=== PATIENT | male | born 1945 | race Caucasian/White ===

== ENCOUNTER 2016-09-07 13:33 | Outpatient (RCR) | payer MEDICARE, MEDICAID ==
[~2016-09-07 13:33] MED LIST: ANDROGEL75 G1 TD; CARVEDILOL12.5 MG ORAL; CODEINE SULFATE PO; CRESTOR10 M2 ORAL; FARXIGA5 MG PO; FORTESTA60 GM TD; GLUMETZA1000 MG PO; GLUMETZA500 MG PO; JANUVIA100 MG PO; KEFLEX500 M1 ORAL; LASIX20 M1 ORAL; LEVAQUIN500 MG PO; METFORMIN HCL1000 M1 ORAL; METFORMIN HCL500 M1 ORAL; OXYCODONE PO; OXYCONTIN10 MG ORAL; PRANDIN1 MG ORAL; PRANDIN2 MG ORAL; PRANDIN2 MG PO; PROSCAR5 MG PO; RAMIPRIL5 MG ORAL; RITALIN10 MG ORAL; RITALIN5 MG PO; SOMA350 MG PO; TESTOSTERONE5 G1; VIBRAMYCIN100 MG ORAL; VOLTAREN100 G1 TP; [UNRECOGNIZED DRUG - OTHER]
== END 2016-09-14 | disposition home or self-care (01) ==
LOC: WCC 13:33
DX: T81.89XA Other complications of procedures, not elsewhere classified, initial encounter (principal); E11.9 Type 2 diabetes mellitus without complications; I10 Essential (primary) hypertension; Y83.9 Surgical procedure, unspecified as the cause of abnormal reaction of the patient, or of later complication, without mention of misadventure at the time of the procedure
CPT/HCPCS: 11042; 82962

== ENCOUNTER → 2016-09-13 | Day surgery (SDC) | payer MEDICARE, MEDICAID ==
[2016-09-13] VITALS (8 sets, daily range): BP systolic 153–169; BP diastolic 70–89
[~2016-09-13] VITALS: Ht 172.7 cm; Wt 81.6 kg
[~2016-09-13] MED LIST changes: +BSS 15ml BTL ONE; +BSS 500ml btl ONE; +Bupivacaine 0.75% 30ml vial INJ ONE; +Cyclopentolate 1% Opth Sol ONE; +Dexamethasone 4mg/ml vial ONE; +EPINEPHrine 1mg/1ml Amp ONE; +Gatifloxacin Opth Solution 0.5% ONE; +Gatifloxacin Opth Solution 0.5% RIGHT EYE SCH; +Goniosol 2.5% Opth Soln - 15ml ONE; +LR 1000ml 1,000 ML IV SCH; +LR 1000ml 1,000 ML IVLG SCH; +LR 1000ml ONE; +Lidocaine 4% Amp ONE; +NS Irrig 1000ml ONE; +Phenylephrine 2.5% Op Soln ONE; +Povidone-Iodine 5% opth solution ONE; +Propofol 10mg/ml 20ml IV ONE; +Sterile Water Irrig 1000ml IRRIG ONE; +Tetracaine 0.5% Opth Soln ONE; +Tropicamide 1% Opth Soln ONE; +fentaNYL 100 mcg/2 mL IV PRN
[2016-09-13] MEDS: Tropicamide 1% Opth Soln RIGHT EYE SCH ×3 (11:01→11:23)
[2016-09-13] MEDS: Phenylephrine 2.5% Op Soln RIGHT EYE SCH ×3 (11:01→11:23)
[2016-09-13] MEDS: Cyclopentolate 1% Opth Sol RIGHT EYE SCH ×3 (11:01→11:23)
--- NOTE | 2016-09-13 12:10 | Pre-Procedure Note/Attestation ---
Pre-Procedure Note/Attestation Complete Prior to Procedure Planned Procedure: right Procedure Narrative: Pars plana vitrectomy, possible peel, and possible laser Indications for Procedure Pre-Operative Diagnosis: Vitreous opacities, rule out epiretinal membrane Attestation I attest that I discussed the nature of the procedure; its benefits; risks and complications; and alternatives (and the risks and benefits of such alternatives ), prior to the procedure, with the patient (or the patient's legal authorization representative). I attest that, if there was a reasonable possibility of needing a blood transfusion, the patient (or the patient's legal authorization representative) was given the [facility] standardized written summary, pursuant to the [place] Blood Safety Act ([place] Health and Safety Code # 1645, as amended). I attest that I re-evaluated the patient just prior to the surgery and that there has been no change in the patient's H&P, except as documented below: Fabio Eduardo MD Sep 13, 2016 12:10
--- NOTE | 2016-09-13 13:01 | Immediate Post-Op Evaluation ---
Immediate Post-Op Evalulation Immediate Post-Op Evalulation Procedure: Vitrectomy Date of Evaluation: Sep 13, 2016 Time of Evaluation: 13:20 IV Fluids: 800 Blood Pressure Systolic: 163 Blood Pressure Diastolic: 80 Pulse Rate: 78 Respiratory Rate: 15 O2 Sat by Pulse Oximetry: 96 Temperature (Fahrenheit): 98.8 Pain Score (1-10): 0 Nausea: No Vomiting: No Complications No complication Patient Status: awake, patent, none Hydration Status: adequate Drug: None IVONNE OROZCO M.D. Sep 13, 2016 13:01
--- NOTE | 2016-09-13 13:01 | Anethesia Preoperative Eval ---
Anesthesia Pre-op PMH/ROS General Date of Evaluation: Sep 13, 2016 Time of Evaluation: 12:20 Anesthesiologist: Elpidio ASA Score: ASA 3 Mallampati Score Class I : Soft palate, uvula, fauces, pillars visible Class II: Soft palate, uvula, fauces visible Class III: Soft palate, base of uvula visible Class IV: Only hard plate visible Mallampati Classification: Class II Surgeon: Alesha Diagnosis: Fungal Endothalmitis Surgical Procedure: Vitrectomy, Membrane Peeling Family History: no anesthesia problems Allergies: Coded Allergies: OLIVE OIL (Verified Adverse Reaction, Severe, SPASM IN THE COLON, 01/18/14) PREGABALIN (Verified Adverse Reaction, Intermediate, "hypernervous", ) ACETAMINOPHEN (Verified Adverse Reaction, Mild, IRRITABILITY AND ELEVATED BLOOD PRESSURE, 01/18/14) IBUPROFEN (Verified Adverse Reaction, Mild, IRRITABILITY AND ELEVATED BLOOD PRESSURE, 01/18/14) Medications: see eMAR Past Medical History Cardiovascular: Reports: other - DVT (on anticoagulation), Denies: CAD, HTN, DC, arrhythmia, valve dz Pulmonary: Denies: COPD, ELISA, asthma, other Gastrointestinal/Genitourinary: Reports: CRI Neurologic/Psychiatric: Denies: CVA, TIA, dementia, depression/anxiety, other Endocrine: Reports: DM, Denies: hypothyroidism, other, steroids HEENT: Reports: cataract (R) Hematology/Immune: Reports: DVT - On anticoagulation PMH Narrative: DM, DVT, back pain PSxH Narrative: Cataract, foot surgery, back surgery, T & A Anesthesia Pre-op Phys. Exam Physician Exam Last Vital Signs Date Time Temp Pulse Resp B/P Pulse Ox O2 Delivery O2 Flow Rate FiO2 09/13/16 11:03 98.3 75 18 153/71 99 Room Air Constitutional: NAD Neurologic: CN 2-12 intact Cardiovascular: RRR, no M/R/G Respiratory: CTA Gastrointestinal: S/NT/ND Airway Exam Mallampati Score: Class II MO: full ROM: full Dentures: upper Anesthesia Pre-op A/P Labs No contraindication Studies Pre-op Studies: EKG - SR, possible old septal infarct, possible lateral ischemia Risk Assessment & Plan Assessment: Diabetic male for vitrectomy Plan: MAC, TIVA Status Change Before Surgery: No Pre-Antibiotics Drug: None IVONNE OROZCO M.D. Sep 13, 2016 13:01
--- NOTE | 2016-09-13 13:05 | Brief Operative Note ---
Immediate Post Operative Note Operative Note Pre-op Diagnosis: Vitreous opacities, rule out epiretinal membrane Procedure: pars plana vitrectomy with membrane peel OD Post-op Diagnosis: Macular pucker and vitreous opacities. Surgeon: Alesha Anesthesia: local, MAC Specimen: none Complications: none Condition: stable Estimated Blood Loss: none Drains: none Implant(s) used?: No Fabio Eduardo MD Sep 13, 2016 13:05
--- NOTE | 2016-09-13 13:15 | 48 Hour Post Anesthesia Eval ---
Post Anesthesia Evaluation Procedure: Vitrectomy Date of Evaluation: Sep 13, 2016 Time of Evaluation: 13:45 Blood Pressure Systolic: 170 0: 73 Pulse Rate: 78 Respiratory Rate: 16 O2 Sat by Pulse Oximetry: 97 Airway: patent Nausea: No Vomiting: No Pain Intensity: 0 Hydration Status: adequate Cardiopulmonary Status: stable Mental Status/LOC: patient returned to baseline Follow-up Care/Observations: As per surgery Post-Anesthesia Complications: No anesthetic complication Follow-up care needed: N/A IVONNE OROZCO M.D. Sep 13, 2016 13:15
--- NOTE | 2016-09-13 20:47 | Operative Note - Dictated ---
DATE OF OPERATION: 09/13/2016 PREOPERATIVE DIAGNOSIS: Fungal endophthalmitis status post treatment, vitreous opacities. POSTOPERATIVE DIAGNOSIS: Fungal endophthalmitis status post treatment, vitreous opacities plus epiretinal membrane, right eye. PROCEDURE: Pars plana vitrectomy with membrane peel, right eye. SURGEON: Fabio Eduardo M.D. SENIOR PASTOR: Unassisted. ANESTHESIA: Local (4% lidocaine and 0.75% bupivacaine via retrobulbar injection). COMPLICATIONS: None. DESCRIPTION OF PROCEDURE: After informed consent was obtained, clearance by anesthesia, identification by Dr. Eduardo, the patient brought to the operating room where he received anesthetic injections and the right eye was prepped and draped in usual sterile ophthalmic fashion. A wire lid speculum placed in the conjunctiva fornices and a 3-port 23-gauge vitrectomy was created in this pseudophakic patient. Trocars and cannulas placed 3 millimeters posterior to surgical limbus supratemporally, superonasally and inferotemporally. Once the infusion cannula was noted to be inside the eye, infusion was turned on. The cortical vitreous then removed from the posterior surface of the lens to the surface of the retina and the vitreous was excised to the vitreous base. There was epiretinal membrane noted along the surface of the retina, which was engaged using intraocular forceps. At this point, the eye was examined using scleral depression. No holes or tears in the periphery. There was infiltrate noted at 5 o'clock is noted preoperatively that does appear to be an inactive. The trocar and cannulas were then removed. The wounds were noted to be watertight. Subconjunctival cefazolin, Decadron, and topical atropine drops were placed and the eye patched and shielded and the patient left the operating room in stable condition. Fabio Eduardo M.D. DR: JONATHAN JOB#: [id number] CC:
== END | disposition home or self-care (01) ==
LOC: SUR 10:24
DX: H44.19 Other endophthalmitis (principal); H43.311 Vitreous membranes and strands, right eye; Z96.1 Presence of intraocular lens; E11.22 Type 2 diabetes mellitus with diabetic chronic kidney disease; N18.3 Chronic kidney disease, stage 3 (moderate); E11.42 Type 2 diabetes mellitus with diabetic polyneuropathy; D50.9 Iron deficiency anemia, unspecified; E87.5 Hyperkalemia; I25.10 Atherosclerotic heart disease of native coronary artery without angina pectoris; G89.29 Other chronic pain; M54.5 Low back pain; Z86.718 Personal history of other venous thrombosis and embolism; Z79.01 Long term (current) use of anticoagulants; Z88.6 Allergy status to analgesic agent; Z91.018 Allergy to other foods
CPT/HCPCS: 67041; 82962; J0171; J0690; J1100; J2704; J3470; J3490; J7120; 94003; 94150

== ENCOUNTER 2016-10-21 12:27 | Outpatient (RCR) | payer MEDICARE, MEDICAID ==
[~2016-10-21 12:27] MED LIST changes: -BSS 15ml BTL ONE; -BSS 500ml btl ONE; -Bupivacaine 0.75% 30ml vial INJ ONE; -Cyclopentolate 1% Opth Sol ONE; -Dexamethasone 4mg/ml vial ONE; -EPINEPHrine 1mg/1ml Amp ONE; -Gatifloxacin Opth Solution 0.5% ONE; -Gatifloxacin Opth Solution 0.5% RIGHT EYE SCH; -Goniosol 2.5% Opth Soln - 15ml ONE; -LR 1000ml 1,000 ML IV SCH; -LR 1000ml 1,000 ML IVLG SCH; -LR 1000ml ONE; -Lidocaine 4% Amp ONE; -NS Irrig 1000ml ONE; -Phenylephrine 2.5% Op Soln ONE; -Povidone-Iodine 5% opth solution ONE; -Propofol 10mg/ml 20ml IV ONE; -Sterile Water Irrig 1000ml IRRIG ONE; -Tetracaine 0.5% Opth Soln ONE; -Tropicamide 1% Opth Soln ONE; -fentaNYL 100 mcg/2 mL IV PRN
== END 2016-11-12 | disposition home or self-care (01) ==
LOC: WCC 12:27
DX: S90.822A Blister (nonthermal), left foot, initial encounter (principal); X58.XXXA Exposure to other specified factors, initial encounter; Y93.9 Activity, unspecified; Y92.9 Unspecified place or not applicable; L03.032 Cellulitis of left toe; L60.2 Onychogryphosis; M79.671 Pain in right foot; M79.672 Pain in left foot; E11.9 Type 2 diabetes mellitus without complications; I10 Essential (primary) hypertension; M54.9 Dorsalgia, unspecified; G89.29 Other chronic pain; Z88.6 Allergy status to analgesic agent
CPT/HCPCS: 10140; 11042; 11721; G0463

== ENCOUNTER → 2016-11-10 | Day surgery (SDC) | payer MEDICARE, MEDICAID ==
--- NOTE | 2016-11-09 23:09 | Pre-Procedure Note/Attestation ---
Pre-Procedure Note/Attestation Complete Prior to Procedure Planned Procedure: left - Removal of cataract and placement of intraocular lens , left eye Indications for Procedure Pre-Operative Diagnosis: cataract, nuclear, left eye Attestation I attest that I discussed the nature of the procedure; its benefits; risks and complications; and alternatives (and the risks and benefits of such alternatives ), prior to the procedure, with the patient (or the patient's legal sales representative trainee). I attest that, if there was a reasonable possibility of needing a blood transfusion, the patient (or the patient's legal sales representative trainee) was given the [facility] standardized written summary, pursuant to the [place] Blood Safety Act ([place] Health and Safety Code # 1645, as amended). I attest that I re-evaluated the patient just prior to the surgery and that there has been no change in the patient's H&P, except as documented below: Isma Watson MD Nov 09, 2016 23:09
[~2016-11-10] VITALS: Ht 172.7 cm; Wt 79.4 kg
[~2016-11-10] MED LIST changes: +Alfentanil 2ml Inj ONE; +Atropine Inj 1mg/10ml Syr IV PRN; +BSS 15ml BTL ONE; +BSS 500ml btl ONE; +Carbachol 0.01% Op Soln 1.5ml vial ONE; +Dexamethasone 4mg/ml vial ONE; +DiphenhydrAMINE 50mg/ml Inj IVP PRN; +EPINEPHrine 1mg/1ml Amp ONE; +Hydromorphone 0.5mg/0.5ml inj IVP PRN; +Ketorolac 30mg Inj IV PRN; +Ketorolac 60mg Inj IV PRN; +LORazepam Inj 2mg/ml 1ml IV PRN; +LR 1000ml 1,000 ML IVLG SCH; +LR 1000ml ONE; +Labetalol 5mg/ml 20ml vial IV PRN; +Lidocaine 1% MPF 10mg/ml 5ml ONE; +Lidocaine 4% Amp ONE; +Meperidine 25mg/ml Inj IV PRN; +Metoclopramide 10mg/2ml Inj IVP PRN; +Midazolam 2mg/2ml Inj IVP PRN; +Midazolam 2mg/2ml Inj ONE; +NS Irrig 1000ml ONE; +Norco 5mg/325mg tab ORAL PRN; +Norco 7.5mg/325mg tab ORAL PRN; +Oxycodone/Acetaminophen 5-325 ORAL PRN; +Phenylephrine 10% Opth Soln 5ml LEFT EYE SCH; +Pred Forte 1% Opth Susp 1ml LEFT EYE ONE; +Propofol 10mg/ml 20ml IV ONE; +Sterile Water Irrig 1000ml IRRIG ONE; +fentaNYL 100 mcg/2 mL IV PRN
[2016-11-10] MEDS: Gatifloxacin Opth Solution 0.5% LEFT EYE SCH ×3 (10:37→11:04)
[2016-11-10] MEDS: Cyclopentolate 1% Opth Sol LEFT EYE SCH ×3 (10:37→11:03)
[2016-11-10] MEDS: Akten 3.5% 1ml Btl LEFT EYE SCH ×3 (10:38→11:04)
[2016-11-10] MEDS: Flurbiprofen 0.03% Opth Sol 2.5ml LEFT EYE SCH ×3 (10:38→11:03)
[2016-11-10] MEDS: Phenylephrine 10% Opth Soln 5ml LEFT EYE SCH ×3 (10:52→11:12)
--- NOTE | 2016-11-10 11:36 | Anethesia Preoperative Eval ---
Anesthesia Pre-op PMH/ROS General Date of Evaluation: Nov 10, 2016 Time of Evaluation: 11:36 Anesthesiologist: Antione ASA Score: ASA 3 Mallampati Score Class I : Soft palate, uvula, fauces, pillars visible Class II: Soft palate, uvula, fauces visible Class III: Soft palate, base of uvula visible Class IV: Only hard plate visible Mallampati Classification: Class II Surgeon: Walter Diagnosis: Cataract OS Surgical Procedure: Cat Ext IOL OS Anesthesia History: none Family History: no anesthesia problems Allergies: Coded Allergies: OLIVE OIL (Verified Adverse Reaction, Severe, SPASM IN THE COLON, 01/18/14) PREGABALIN (Verified Adverse Reaction, Intermediate, "hypernervous", ) ACETAMINOPHEN (Verified Adverse Reaction, Mild, IRRITABILITY AND ELEVATED BLOOD PRESSURE, 01/18/14) IBUPROFEN (Verified Adverse Reaction, Mild, IRRITABILITY AND ELEVATED BLOOD PRESSURE, 01/18/14) Medications: see eMAR Past Medical History Cardiovascular: Reports: CAD, HTN, other - HL Gastrointestinal/Genitourinary: Reports: CRI Endocrine: Reports: DM HEENT: Reports: cataract (L), cataract (R) Hematology/Immune: Reports: DVT, anemia PSxH Narrative: Nose Sx, Cat OD, R Foot SX, Back SX Anesthesia Pre-op Phys. Exam Physician Exam Last Vital Signs Date Time Temp Pulse Resp B/P Pulse Ox O2 Delivery O2 Flow Rate FiO2 11/10/16 11:16 98.4 78 18 100 Room Air Constitutional: NAD Neurologic: CN 2-12 intact Cardiovascular: RRR Respiratory: CTA Gastrointestinal: S/NT/ND Airway Exam Mallampati Score: Class II MO: limited ROM: limited Teeth: missing, intact Anesthesia Pre-op A/P Risk Assessment & Plan Assessment: ASA 3 Plan: GA Status Change Before Surgery: Gabriel Maldonado MD Nov 10, 2016 11:36
--- NOTE | 2016-11-10 11:38 | Immediate Post-Op Evaluation ---
Immediate Post-Op Evalulation Immediate Post-Op Evalulation Procedure: Cat Ext IOL OS Date of Evaluation: Nov 10, 2016 Time of Evaluation: 12:49 IV Fluids: 300 LR Blood Products: 0 Estimated Blood Loss: 1 Urinary Output: 0 Blood Pressure Systolic: 190 Blood Pressure Diastolic: 86 Pulse Rate: 76 Respiratory Rate: 16 O2 Sat by Pulse Oximetry: 98 Temperature (Fahrenheit): 98.6 Pain Score (1-10): 2 Nausea: No Vomiting: No Complications 0 Patient Status: awake, reacts, patent, none Hydration Status: adequate Gabriel Talbot MD Nov 10, 2016 11:38
--- NOTE | 2016-11-10 11:39 | 48 Hour Post Anesthesia Eval ---
Post Anesthesia Evaluation Procedure: Cat Ext IOL OS Date of Evaluation: Nov 10, 2016 Time of Evaluation: 14:53 Blood Pressure Systolic: 189 0: 78 Pulse Rate: 76 Respiratory Rate: 18 Temperature (Fahrenheit): 98.6 O2 Sat by Pulse Oximetry: 100 Airway: patent Nausea: No Vomiting: No Pain Intensity: 1 Hydration Status: adequate Cardiopulmonary Status: Stable Mental Status/LOC: patient returned to baseline Follow-up Care/Observations: 0 Post-Anesthesia Complications: 0 Follow-up care needed: ready to discharge Gabriel Talbot MD Nov 10, 2016 11:39
--- NOTE | 2016-11-10 12:39 | Discharge Instructions ---
Discharge Instructions Discharge Instructions Follow Up Orders Continue preop eye drops Wear shield at all times except to place eye drops Followup tomorrow in Dr Watson's office For Congestive Heart Failure Reminder Report to your physician any weight gain of 5 pounds or more in one week. Isma Watson MD Nov 10, 2016 12:39
--- NOTE | 2016-11-10 12:42 | Brief Operative Note ---
Immediate Post Operative Note Operative Note Pre-op Diagnosis: cataract, nuclear, left eye Procedure: phaco pc iol, os Use of 7.0 malyuga ring Post-op Diagnosis: cataract, nuclear, left eye miosis, left eye Surgeon: Kimberlee Watson MD MS Director Of Physiotherapy Services: none Anesthesiologist: Dr Talbot Anesthesia: local, MAC Specimen: none Complications: none Condition: stable Fluids: IV Implant(s) used?: Yes - [facility] [id number] 26.5 Isma Watson MD Nov 10, 2016 12:42
[2016-11-10 12:43] VITALS: BP 189/97
[2016-11-10 12:48] VITALS: BP 190/93
[2016-11-10 12:53] VITALS: BP 185/86
[2016-11-10 13:25] VITALS: BP 163/89
[2016-11-10 14:25] VITALS: BP 155/76
--- NOTE | 2016-11-10 21:29 | Operative Note - Dictated ---
DATE OF OPERATION: 11/10/2016 SURGEON: Isma Watson M.D. MOHEL SURGEON: None. ANESTHESIOLOGIST: Gabriel Talbot M.D. ANESTHESIA: Local/standby/monitored anesthesia care. PREOPERATIVE DIAGNOSES: 1. Cataract, nuclear, left eye. 2. Miosis, left eye. POSTOPERATIVE DIAGNOSES: 1. Cataract, nuclear, left eye. 2. Miosis, left eye. PROCEDURES: 1. Phacoemulsification of cataract, left eye. 2. Placement of posterior chamber intraocular lens, left eye (model [employer]ER TECNIS [id number], power 26.5). 3. Use of Malyugin ring, (7.0 mm). SPECIMENS: None. COMPLICATIONS: None. INDICATIONS FOR SURGERY: The patient has had painless progressive decrease in visual acuity in the left eye secondary to cataract. The patient understands the risks of surgery including infection, bleeding, need for further surgery, loss of vision, no improvement in vision, loss of the eye, loss of life, glaucoma, retinal detachment, endophthalmitis, and understands these risks and elects to proceed with surgery. FINDINGS: The patient had a +3 nuclear sclerotic cataract as well as miosis. Operative Note: After informed consent was obtained, the patient was brought into the operating room and placed in the supine position. Cardiac and respiratory monitors were attached. A time-out was performed and all criteria were met and everyone in the room agreed. The left eye was then draped and prepped in sterile manner for ocular surgery. A lid speculum was placed in the eye. The patient had previous RK surgery and 1% lidocaine preservative-free was injected at the approximate 2 o'clock limbus. A conjunctiva peritomy from approximately 1 o'clock to 2:30 was made and dissected posteriorly. Hemostasis was maintained with bipolar cautery. A 2.6 mm limbal incision was made centered between two RK wounds. This was dissected anteriorly so as not to cross any of the RK wounds. A paracentesis was made at approximately 3 o'clock again avoiding all RK wounds. A 1% lidocaine preservative-free was injected into the anterior chamber followed by Healon. The anterior chamber was then entered using a 2.6 mm keratome through the limbal incision again avoiding the RK wounds. Healon was then injected into the anterior chamber. The Malyugin ring was then placed with 4-point fixation on the pupillary margin. This was done because the pupil originally seen in the preoperative area and it was approximately 7 mm but in the operating room it was approximately 4.5 mm and so it definitely started to become miotic. After the placement of the Malyugin ring, anterior capsulorrhexis was then performed. Hydrodissection and hydrodelineation of the lens was then performed. The lens was then phacoemulsified using divide and conquer four-quadrant technique. Residual cortical material was then aspirated. The lens was taken from its package, placed into the cartridge, and Healon was placed into the anterior chamber and capsular bag. The tip of the cartridge was placed through the limbal incision and also avoiding the RK wounds. The lens was injected into the capsular bag and centered nicely with a Sinskey hook. Both haptics were observed going into the capsule and were underneath the anterior capsule. There is nothing that was dislocated anteriorly. The Malyugin ring was then removed. Inspiration and expiration of Healon was then done to aspirate all the Healon from the anterior chamber and capsular bag. One 10-0 nylon interrupted suture was then placed through the limbal incision. The knot was rotated and buried. The paracentesis site was hydrated and closed. Wounds were checked and found to be watertight. The conjunctiva was then closed with forceps cautery. The lid speculum drapes were removed from the eye and drops of Betadine diluted was placed onto the surface of the eye and then irrigated. The drops of Timoptic, gatifloxacin, and Pred Forte were applied to the eye followed by Maxitrol ointment and a shield. The patient tolerated the procedure well and left the operating room awake and alert and in stable condition. The patient is to follow up the next day, but sooner on a p.r.n. basis. Elsie Watson M.D. DR: Sary JOB#: [id number] CC:
== END | disposition home or self-care (01) ==
LOC: SUR 09:28
DX: H25.12 Age-related nuclear cataract, left eye (principal); H57.03 Miosis; I25.10 Atherosclerotic heart disease of native coronary artery without angina pectoris; E78.5 Hyperlipidemia, unspecified; I12.9 Hypertensive chronic kidney disease with stage 1 through stage 4 chronic kidney disease, or unspecified chronic kidney disease; N18.9 Chronic kidney disease, unspecified; E11.9 Type 2 diabetes mellitus without complications; D64.9 Anemia, unspecified; Z86.718 Personal history of other venous thrombosis and embolism; Z79.84 Long term (current) use of oral hypoglycemic drugs
CPT/HCPCS: 66982; 82962; J0171; J1100; J2250; J2704; J3490; J7120; V2632; 94003; 94150

== ENCOUNTER 2016-11-16 12:51 | Outpatient (RCR) | payer MEDICARE, MEDICAID ==
[~2016-11-16 12:51] MED LIST changes: -Alfentanil 2ml Inj ONE; -Atropine Inj 1mg/10ml Syr IV PRN; -BSS 15ml BTL ONE; -BSS 500ml btl ONE; -Carbachol 0.01% Op Soln 1.5ml vial ONE; -Dexamethasone 4mg/ml vial ONE; -DiphenhydrAMINE 50mg/ml Inj IVP PRN; -EPINEPHrine 1mg/1ml Amp ONE; -Hydromorphone 0.5mg/0.5ml inj IVP PRN; -Ketorolac 30mg Inj IV PRN; -Ketorolac 60mg Inj IV PRN; -LORazepam Inj 2mg/ml 1ml IV PRN; -LR 1000ml 1,000 ML IVLG SCH; -LR 1000ml ONE; -Labetalol 5mg/ml 20ml vial IV PRN; -Lidocaine 1% MPF 10mg/ml 5ml ONE; -Lidocaine 4% Amp ONE; -Meperidine 25mg/ml Inj IV PRN; -Metoclopramide 10mg/2ml Inj IVP PRN; -Midazolam 2mg/2ml Inj IVP PRN; -Midazolam 2mg/2ml Inj ONE; -NS Irrig 1000ml ONE; -Norco 5mg/325mg tab ORAL PRN; -Norco 7.5mg/325mg tab ORAL PRN; -Oxycodone/Acetaminophen 5-325 ORAL PRN; -Phenylephrine 10% Opth Soln 5ml LEFT EYE SCH; -Pred Forte 1% Opth Susp 1ml LEFT EYE ONE; -Propofol 10mg/ml 20ml IV ONE; -Sterile Water Irrig 1000ml IRRIG ONE; -fentaNYL 100 mcg/2 mL IV PRN
== END 2016-12-12 | disposition home or self-care (01) ==
LOC: WCC 12:51
DX: S31.100A Unspecified open wound of abdominal wall, right upper quadrant without penetration into peritoneal cavity, initial encounter (principal); Y83.9 Surgical procedure, unspecified as the cause of abnormal reaction of the patient, or of later complication, without mention of misadventure at the time of the procedure
CPT/HCPCS: 11042; G0463

== ENCOUNTER 2016-12-14 13:26 | Outpatient (RCR) | payer MEDICARE, MEDICAID ==
[~2016-12-14] VITALS: Ht 200.7 cm; Wt 72.6 kg
== END 2017-01-12 | disposition home or self-care (01) ==
LOC: WCC 13:26
DX: T81.89XA Other complications of procedures, not elsewhere classified, initial encounter (principal); E11.9 Type 2 diabetes mellitus without complications; I10 Essential (primary) hypertension; G89.29 Other chronic pain; Z88.6 Allergy status to analgesic agent; X58.XXXA Exposure to other specified factors, initial encounter; Y93.9 Activity, unspecified; Y92.9 Unspecified place or not applicable
CPT/HCPCS: 11042

== ENCOUNTER 2016-12-14 15:42 | Outpatient (CLI) | payer MEDICARE, MEDICAID ==
--- NOTE | 2016-12-14 16:32 | Diagnostic Imaging Report ---
Indication: Pain Comparison: None Findings: 3 views of the right foot were obtained. 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 There is loss of the plantar arch. The plantar arch appears everted. There is soft tissue swelling. Vascular calcifications are noted. Impression: Charcot foot
[2016-12-14 16:41] LABS: BASOPHILS % (AUTO) 1.4 % (0.0-2.0); EOSINOPHILS % (AUTO) 3.6 % (0.0-3.0); LYMPHOCYTES % (AUTO) 19.3 % (20.0-45.0); MEAN CORPUSCULAR HEMOGLOBIN 30.9 PG (27.0-31.0); MEAN CORPUSCULAR HGB CONC 34.7 G/DL (32.0-36.0); MEAN CORPUSCULAR VOLUME 89 FL (80-99); MEAN PLATELET VOLUME 5.9 FL (6.5-10.1); MONOCYTES % (AUTO) 6.3 % (1.0-10.0); NEUTROPHILS % (AUTO) 69.5 % (45.0-75.0); PLATELET COUNT 290 K/UL (150-450); RED BLOOD COUNT 3.89 M/UL (4.70-6.10); RED CELL DISTRIBUTION WIDTH 13.5 % (11.6-14.8); WHITE BLOOD COUNT 9.5 K/UL (4.8-10.8)
[2016-12-14 17:22] LABS: ALANINE AMINOTRANSFERASE 8 U/L (3-41); ALBUMIN/GLOBULIN RATIO 1.2 (1.0-2.7); ANION GAP 15 (5-15); ASPARTATE AMINO TRANSFERASE 15 U/L (5-40); CALCIUM 9.3 mg/dL (8.6-10.2); CARBON DIOXIDE 27 mEQ/L (20-30); CHLORIDE 95 mEQ/L (98-107); CREATININE 1.4 mg/dL (0.7-1.2); CRP QUANT 2.5 mg/dL (< 0.5); HEMOLYSIS 3; POTASSIUM 4.5 mEQ/L (3.4-4.9); SODIUM 137 mEQ/L (135-145); TOTAL PROTEIN 7.4 g/dL (6.6-8.7)
[2016-12-14 17:47] LABS: ERYTHROCYTE SEDIMENTATION RATE 37 MM/HR (0-20)
== END 2016-12-14 16:42 | disposition home or self-care (01) ==
LOC: RAD 15:42
DX: L03.115 Cellulitis of right lower limb (principal); A52.16 Charcot's arthropathy (tabetic)
CPT/HCPCS: 36415; 80053; 85025; 85651; 86140; 87070; 87181; 87205

== ENCOUNTER 2017-03-08 14:49 | Outpatient (RCR) | payer MEDICARE, MEDICAID | END 2017-03-14 | disposition home or self-care (01) | LOC: WCC 14:49 | DX: L97.513 Non-pressure chronic ulcer of other part of right foot with necrosis of muscle (principal); M14.671 Charcot's joint, right ankle and foot; E11.69 Type 2 diabetes mellitus with other specified complication; Z87.891 Personal history of nicotine dependence; I10 Essential (primary) hypertension; Z88.6 Allergy status to analgesic agent | CPT/HCPCS: 11042 ==

== ENCOUNTER 2017-03-15 13:30 | Outpatient (RCR) | payer MEDICARE, MEDICAID | END 2017-04-14 | disposition home or self-care (01) | LOC: WCC 13:30 | DX: L97.513 Non-pressure chronic ulcer of other part of right foot with necrosis of muscle (principal); E11.69 Type 2 diabetes mellitus with other specified complication; M14.671 Charcot's joint, right ankle and foot; I10 Essential (primary) hypertension; Z88.6 Allergy status to analgesic agent | CPT/HCPCS: 11042; G0463 ==

== ENCOUNTER 2017-07-19 13:47 | Outpatient (RCR) | payer MEDICARE, MEDICAID | END 2017-08-14 | disposition home or self-care (01) | LOC: WCC 13:47 | DX: L97.513 Non-pressure chronic ulcer of other part of right foot with necrosis of muscle (principal); M14.671 Charcot's joint, right ankle and foot; E11.69 Type 2 diabetes mellitus with other specified complication; L89.620 Pressure ulcer of left heel, unstageable; I10 Essential (primary) hypertension; Z87.891 Personal history of nicotine dependence; M86.072 Acute hematogenous osteomyelitis, left ankle and foot; L03.116 Cellulitis of left lower limb; L89.623 Pressure ulcer of left heel, stage 3; Z88.6 Allergy status to analgesic agent | CPT/HCPCS: 11043; 87070; 87181; 87205; G0463 ==

== ENCOUNTER 2017-08-02 13:29 | Outpatient (CLI) | payer MEDICARE, MEDICAID ==
--- NOTE | 2017-08-03 11:12 | Diagnostic Imaging Report ---
Indication: Nonhealing ulcer on left heel Technique: Sagittal, coronal, axial T1 fast spin echo and fast spin echo STIR images of the ankle and hindfoot Comparison: 03/30/2016 MRI, 12/14/2016 plain foot radiograph. No recent radiographs available Findings: There is an apparent defect of the posteromedial skin and subcutaneous fat on the STIR images, which must be artifactual as no defect is apparent on the T1-weighted images. There is abnormal high STIR signal and abnormal low T1 signal within the calcaneal tuberosity, with a thin focus of abnormal signal extending centrally into the main portion of the posterior calcaneus. No definite overlying ulceration or significant soft tissue edema in the area is noted, except for minimal edema of the subcutaneous fat inferior to the plantar fascia attachment. No focal drainable collections are evident. More anteriorly, there is some edema of the superficial subcutaneous fat and of the deep musculature. There is some deep edema dorsally as well along the midfoot. The major tendons are grossly intact. Impression: Positive for osteomyelitis of the calcaneal tuberosity. No other definite osseous abnormality demonstrated. Evidence of soft tissue cellulitis/myositis of the midfoot. No drainable focal fluid collection demonstrated Findings were discussed by phone with Dr. Velasquez at approximately 8:30 a.m. on 08/03/2017
== END 2017-08-02 15:29 | disposition home or self-care (01) ==
LOC: MRI 13:29
DX: S91.302A Unspecified open wound, left foot, initial encounter (principal); X58.XXXA Exposure to other specified factors, initial encounter; Y93.9 Activity, unspecified; Y92.9 Unspecified place or not applicable

== ENCOUNTER 2017-10-11 14:29 | Inpatient (IN) | payer MEDICARE, MEDICAID ==
[~2017-10-11] VITALS: Ht 172.7 cm; Wt 83.9 kg
[2017-10-11] MEDS ORDERED: AMLODIPINE BESYL5 MG ORAL (14:39)
[2017-10-11] MEDS ORDERED: ACETYL L-CARNI500 MG ORAL (14:39)
[2017-10-11] MEDS ORDERED: ALPHA LIPOIC AC50 M1 PO (14:39)
[2017-10-11] MEDS ORDERED: BENADRYL25 MG ORAL (14:42)
[2017-10-11] MEDS ORDERED: EPOGEN2000 UNIT/ SUBQ (14:42)
[2017-10-11] MEDS ORDERED: CYANOCOBAL1000 MCG/2 IJ (14:42)
[2017-10-11 14:48] VITALS: BP 133/61
[2017-10-11] MEDS ORDERED: MILK OF MA400 MG/51 ORAL (14:53)
[2017-10-11] MEDS ORDERED: ZOFRAN ODT4 MG ORAL (14:53)
[2017-10-11] MEDS ORDERED: LANTUS SOL100 UNIT/1 SUBQ (14:53)
[2017-10-11] MEDS ORDERED: NEPHROVITE1 TAB ORAL (14:53)
[2017-10-11] MEDS ORDERED: ZANTAC150 MG ORAL (14:53)
[2017-10-11] MEDS ORDERED: VITAMIN B COMP1 EAC2 ORAL (14:53)
[2017-10-11] MEDS ORDERED: MELATONIN1 M2 PO (14:53)
[2017-10-11] MEDS ORDERED: FUROSEMIDE40 MG ORAL (14:53)
[2017-10-11] MEDS ORDERED: OXYCODONE HCL10 MG ORAL (14:53)
[2017-10-11] MEDS ORDERED: NOVOLOG100 UNIT/3 SUBQ (14:53)
[2017-10-11] MEDS ORDERED: VOLTAREN100 G1 TP (14:53)
[2017-10-11] MEDS ORDERED: VITAMIN D400 INTLU ORAL (14:53)
[2017-10-11] MEDS ORDERED: RITALIN5 MG ORAL (14:53)
[2017-10-11] MEDS ORDERED: MIRTAZAPINE15 MG ORAL (14:53)
[2017-10-11] MEDS ORDERED: PROSCAR5 MG ORAL (14:53)
[2017-10-11] MEDS ORDERED: Vancomycin 1.5gm/D5W 250ml 250 ML IVPB ONE (15:15)
[2017-10-11] MEDS ORDERED: Morphine Sulfate 4mg/ml Inj IVP ONE (15:30)
--- NOTE | 2017-10-11 15:31 | Emergency Room Report ---
History of Present Illness General Chief Complaint: General Complaint Source: Medical Record, EMS Present Illness HPI 72-year-old male presents ED for evaluation. Patient presenting from nursing home facility. Has ulcer to his left heel which is getting progressively worse. Noted by nursing staff. Sent here for further evaluation. Pain is a sharp, 8/10, nonradiating. Denies fevers or chills. Denies chest pain. Denies nausea or vomiting. No other aggravating factors. Denies any other associated symptoms Allergies: Coded Allergies: GABAPENTIN (Verified Allergy, Unknown, 10/11/17) OLIVE OIL (Verified Adverse Reaction, Severe, SPASM IN THE COLON, 01/18/14) PREGABALIN (Verified Adverse Reaction, Intermediate, "hypernervous", ) ACETAMINOPHEN (Verified Adverse Reaction, Mild, IRRITABILITY AND ELEVATED BLOOD PRESSURE, 01/18/14) IBUPROFEN (Verified Adverse Reaction, Mild, IRRITABILITY AND ELEVATED BLOOD PRESSURE, 01/18/14) Uncoded Allergies: SSRI (Allergy, Unknown, 10/11/17) Patient History Past Medical History: DM, HTN, other - BPH Past Surgical History: none Pertinent Family History: none Social History: Denies: smoking, alcohol use, drug use Immunizations: UTD Reviewed Nursing Documentation: PMH: Agreed, PSxH: Agreed Nursing Documentation-PMH Hx Cardiac Problems: Yes - ASCVD, Chronic diastolic CHF, Anemia Hx Hypertension: Yes Hx Diabetes: Yes - DM2 Hx Cancer: No Hx Gastrointestinal Problems: Yes - Benign prostatic hyperplasia Hx Neurological Problems: No - Pressure ulcer, Osteomyelitis, Difficulty walking,Left artificial hip joint Hx Vertigo: Yes Hx Dizziness: Yes Hx Headaches: Yes Hx Weakness: Yes - IN THE LEGS Hx Fatigue: Yes Physical Exam Vital Signs Date Time Temp Pulse Resp B/P (MAP) Pulse Ox O2 Delivery O2 Flow Rate FiO2 10/11/17 14:30 99.0 83 20 133/61 96 Room Air 99.0 Medical Decision Making Diagnostic Impression: Primary Impression: Foot ulcer, left Qualified Codes: L97.529 - Non-pressure chronic ulcer of other part of left foot with unspecified severity Additional Impression: Renal insufficiency ER Course Hospital Course 72-year-old female presents to ED with ulcer to L heel Differential diagnoses include: Cellulitis, abscess, osteomyelitis Clinical course Patient placed on stretcher. After initial history and physical I ordered labs , blood Cx, UA, IVFs, wound cx labs reviewed - leukocytosis, Hb/Hct stable, BUN/Cr elevated patient refused cxr and foot xray antibiotics given. IVFs given. Case discussed with Dr Mcdowell and he agreed to accept the patient to his service for further care and support Diagnosis - L foot ulcer, renal insufficiency Patient admitted to floor in serious condition Labs Test 10/11/17 15:30 White Blood Count 16.4 K/UL (4.8-10.8) Red Blood Count 4.37 M/UL (4.70-6.10) Hemoglobin 11.7 G/DL (14.2-18.0) Hematocrit 35.4 % (42.0-52.0) Mean Corpuscular Volume 81 FL (80-99) Mean Corpuscular Hemoglobin 26.8 PG (27.0-31.0) Mean Corpuscular Hemoglobin Concent 33.1 G/DL (32.0-36.0) Red Cell Distribution Width 15.1 % (11.6-14.8) Platelet Count 513 K/UL (150-450) Mean Platelet Volume 5.2 FL (6.5-10.1) Neutrophils (%) (Auto) 84.7 % (45.0-75.0) Lymphocytes (%) (Auto) 7.3 % (20.0-45.0) Monocytes (%) (Auto) 5.2 % (1.0-10.0) Eosinophils (%) (Auto) 2.1 % (0.0-3.0) Basophils (%) (Auto) 0.7 % (0.0-2.0) Sodium Level 132 MMOL/L (136-145) Potassium Level 5.0 MMOL/L (3.5-5.1) Chloride Level 97 MMOL/L (98-107) Carbon Dioxide Level 24 MMOL/L (21-32) Anion Gap 11 mmol/L (5-15) Blood Urea Nitrogen 49 mg/dL (7-18) Creatinine 2.4 MG/DL (0.55-1.30) Estimat Glomerular Filtration Rate mL/min (>60) Glucose Level 253 MG/DL (74-106) Lactic Acid Level 1.90 mmol/L (0.66-2.22) Calcium Level 9.1 MG/DL (8.5-10.1) Total Bilirubin 0.4 MG/DL (0.2-1.0) Aspartate Amino Transf (AST/SGOT) 39 U/L (15-37) Alanine Aminotransferase (ALT/SGPT) 45 U/L (12-78) Alkaline Phosphatase 111 U/L (46-116) Total Protein 8.3 G/DL (6.4-8.2) Albumin 2.7 G/DL (3.4-5.0) Globulin 5.6 g/dL Albumin/Globulin Ratio 0.5 (1.0-2.7) Last Vital Signs Date Time Temp Pulse Resp B/P (MAP) Pulse Ox O2 Delivery O2 Flow Rate FiO2 10/11/17 14:48 99.0 83 20 133/61 96 Room Air 99.0 Status: improved Disposition: ADMITTED INPATIENT Condition: Serious Referrals: ROSEY CHUN (PCP) JOHN CARRIZALES M.D. Oct 11, 2017 15:31
[2017-10-11 15:54] LABS: BASOPHILS % (AUTO) 0.7 % (0.0-2.0); EOSINOPHILS % (AUTO) 2.1 % (0.0-3.0); HEMATOCRIT 35.4 % (42.0-52.0); HEMOGLOBIN 11.7 G/DL (14.2-18.0); LYMPHOCYTES % (AUTO) 7.3 % (20.0-45.0); MEAN CORPUSCULAR VOLUME 81 FL (80-99); MONOCYTES % (AUTO) 5.2 % (1.0-10.0); NEUTROPHILS % (AUTO) 84.7 % (45.0-75.0); PLATELET COUNT 513 K/UL (150-450); RED BLOOD COUNT 4.37 M/UL (4.70-6.10); RED CELL DISTRIBUTION WIDTH 15.1 % (11.6-14.8); WHITE BLOOD COUNT 16.4 K/UL (4.8-10.8)
[2017-10-11 16:08] LABS: ANION GAP 11 mmol/L (5-15); BLOOD UREA NITROGEN 49 mg/dL (7-18); CALCIUM 9.1 MG/DL (8.5-10.1); CARBON DIOXIDE 24 MMOL/L (21-32); CHLORIDE 97 MMOL/L (98-107); CREATININE 2.4 MG/DL (0.55-1.30); SODIUM 132 MMOL/L (136-145)
[2017-10-11 16:13] LABS: ALANINE AMINOTRANSFERASE 45 U/L (12-78); ALBUMIN 2.7 G/DL (3.4-5.0); ALBUMIN/GLOBULIN RATIO 0.5 (1.0-2.7); ALKALINE PHOSPHATASE 111 U/L (46-116); ASPARTATE AMINO TRANSFERASE 39 U/L (15-37); BILIRUBIN,TOTAL 0.4 MG/DL (0.2-1.0)
[2017-10-11 16:35] VITALS: BP 130/62
[2017-10-11] MEDS ORDERED: oxyCODONE 5mg IR tab ORAL PRN (16:45)
[2017-10-11] MEDS ORDERED: Miralax 17gm pkt ORAL PRN (16:45)
[2017-10-11] MEDS ORDERED: Acetaminophen 650 MG SUPP RECTAL PRN ×2 (16:45)
--- NOTE | 2017-10-11 16:46 | History and Physical ---
History of Present Illness General Date patient seen: Oct 11, 2017 Time patient seen: 16:45 Reason for Hospitalization: LLE cellulitis, L heel diabetic ulcer, concern for abscess and osteomyelitis Present Illness HPI 72y/o male with pmh of IDDM type 2 c/b neuropathy and nephropathy, charcot foot , chronic b/l foot diabetic ulcers, chronic diastolic heart failure, CKD, HTN, L hip fx s/p repair who presents with LLE swelling/pain/redness with worsening L heel ulcer w/ drainage. Pt has been residing at [facility]. He was noted to have worsening L foot swelling/pain/redness. He has a L heel ulcer which has been worsening and now with purulent drainage. He co subjective fevers/chills. Denies n/v, d/c, chest pain, SOB, abd pain. In ED, pt noted to have WBC 15. He was given vanco IV. Allergies: Coded Allergies: GABAPENTIN (Verified Allergy, Unknown, 10/11/17) OLIVE OIL (Verified Adverse Reaction, Severe, SPASM IN THE COLON, 01/18/14) PREGABALIN (Verified Adverse Reaction, Intermediate, "hypernervous", ) ACETAMINOPHEN (Verified Adverse Reaction, Mild, IRRITABILITY AND ELEVATED BLOOD PRESSURE, 01/18/14) IBUPROFEN (Verified Adverse Reaction, Mild, IRRITABILITY AND ELEVATED BLOOD PRESSURE, 01/18/14) Uncoded Allergies: SSRI (Allergy, Unknown, 10/11/17) Medication History Scheduled Acetylcarnitine (Acetyl L-Carnitine), 500 MG ORAL DAILY, (Reported) Alpha Lipoic Acid (Alpha Lipoic Acid), 50 MG PO DAILY, (Reported) Amlodipine Besylate* (Amlodipine Besylate*), 5 MG ORAL DAILY, (Reported) Carisoprodol* (Soma*), 350 MG PO DAILY, (Reported) Cephalexin (Cephalexin), 500 MG ORAL FOUR TIMES A DAY Cyanocobalamin (Vitamin B-12) (Cyanocobalamin Injection), 1,000 MCG IJ DAILY, ( Reported) Diclofenac Sodium (Voltaren), 100 GM TP , (Reported) Finasteride* (Proscar*), 5 MG PO DAILY, (Reported) Finasteride* (Proscar*), 5 MG ORAL DAILY, (Reported) Furosemide* (Lasix*), 40 MG ORAL TWICE A DAY, (Reported) Insulin Glargine (Lantus), 13 UNITS SUBQ BEDTIME, (Reported) Metformin Hcl (Glumetza), 2,000 MG PO DA, (Reported) Methylphenidate Hcl* (Ritalin*), 10 MG ORAL BID, (Reported) Methylphenidate Hcl* (Ritalin*), 5 MG ORAL DAILY, (Reported) Mirtazapine* (Remeron*), 15 MG ORAL BEDTIME, (Reported) Oxycodone Hcl Er* (Oxycontin*), 10 MG ORAL TID, (Reported) Ranitidine Hcl* (Zantac*), 150 MG ORAL DAILY, (Reported) Repaglinide (Prandin), 1 MG ORAL BIDAC, (Reported) Testosterone (Androgel), 75 GM TD DA, (Reported) Vitamin B Cmplx/Vit C/Folic AC (Nephro-Astrid Tablet), 1 TAB ORAL DAILY, (Reported ) Vitamin B Complex (Vitamin B Complex), 1 CAP ORAL DAILY, (Reported) Vitamin D (Vitamin D3), 2,000 UNITS ORAL DAILY, (Reported) Scheduled PRN Diphenhydramine Hcl* (Benadryl*), 25 MG ORAL Q6H PRN for Itching, (Reported) Magnesium Hydroxide* (Milk Of Magnesia*), 30 ML ORAL DAILY PRN for Constipation, (Reported) Melatonin (Melatonin), 2 MG PO DAILY PRN for Insomnia, (Reported) Ondansetron Odt* (Zofran Odt*), 4 MG ORAL EVERY 12 HOURS PRN for Nausea & Vomiting, (Reported) Oxycodone Hcl* (Oxycodone Hcl*), 10 MG ORAL Q3HR PRN for For Pain, (Reported) Miscellaneous Medications Diclofenac Sodium (Voltaren), 100 GM TP, (Reported) Epoetin Pramod (Epogen), 1,000 UNIT SUBQ, (Reported) Insulin Aspart* (Novolog*), 0 SUBQ, (Reported) Patient History History Provided By: Patient, Medical Record, PMD Healthcare decision maker Resuscitation status Advanced Directive on File Past Medical/Surgical History Past Medical/Surgical History: (1) DM2 (diabetes mellitus, type 2) (2) Diabetic neuropathy (3) Diabetic nephropathy (4) CKD stage 3 (5) Chronic diastolic (congestive) heart failure (6) Fracture of left hip requiring operative repair (7) Charcot foot due to diabetes mellitus (8) HTN (hypertension) (9) ADHD (attention deficit hyperactivity disorder) Family History Family History: Patient reports no known family medical history. Social History Social History: (1) lives in [facility] Review of Systems Constitutional: Reports: chills, fever, malaise, weakness Eye: Reports: no symptoms ENT: Reports: no symptoms Respiratory: Reports: no symptoms Cardiovascular: Reports: no symptoms Gastrointestinal: Reports: no symptoms Genitourinary: Reports: no symptoms Musculoskeletal: Reports: no symptoms Skin: Reports: no symptoms Psychiatric: Reports: no symptoms Neurological: Reports: no symptoms Endocrine: Reports: no symptoms Hematologic/Lymphatic: Reports: no symptoms Physical Exam Physical Exam Narrative General: alert, cooperative, no distress, appears stated age Head: normocephalic, without obvious abnormality, atraumatic Eyes: conjunctivae/corneas clear. PERRL, EOM's intact Throat: lips, mucosa, and tongue normal. MMM Neck: supple, symmetrical, trachea midline, and no JVD Lungs: clear to auscultation bilaterally Heart: regular rate and rhythm, S1, S2 normal, no murmur, click, rub or gallop Abdomen: soft, non-tender, non-distended, bowel sounds normal Extremities: extremities normal, atraumatic, no cyanosis, 1-2+ pitting edema BLE Pulses: 2+ and symmetric Skin: Left heel full-thickness ulceration which probes to bone, +erythema/edema/ warmth, +purulent drainage Right plantar midfoot with full-thickness ulceration measuring 1 cm in diameter with granular wound base.There is no erythema, drainage, fluctuance, or malodor Neurologic: grossly normal, no focal deficits Last 24 Hour Vital Signs Date Time Temp Pulse Resp B/P (MAP) Pulse Ox O2 Delivery O2 Flow Rate FiO2 10/11/17 16:35 99.0 80 18 130/62 96 Room Air 99.0 10/11/17 16:31 99.0 10/11/17 15:27 99.0 10/11/17 14:48 99.0 83 20 133/61 96 Room Air 99.0 10/11/17 14:30 99.0 83 20 133/61 96 Room Air 99.0 Laboratory Tests Test 10/11/17 15:30 White Blood Count 16.4 K/UL (4.8-10.8) H Red Blood Count 4.37 M/UL (4.70-6.10) L Hemoglobin 11.7 G/DL (14.2-18.0) L Hematocrit 35.4 % (42.0-52.0) L Mean Corpuscular Volume 81 FL (80-99) Mean Corpuscular Hemoglobin 26.8 PG (27.0-31.0) L Mean Corpuscular Hemoglobin Concent 33.1 G/DL (32.0-36.0) Red Cell Distribution Width 15.1 % (11.6-14.8) H Platelet Count 513 K/UL (150-450) H Mean Platelet Volume 5.2 FL (6.5-10.1) L Neutrophils (%) (Auto) 84.7 % (45.0-75.0) H Lymphocytes (%) (Auto) 7.3 % (20.0-45.0) L Monocytes (%) (Auto) 5.2 % (1.0-10.0) Eosinophils (%) (Auto) 2.1 % (0.0-3.0) Basophils (%) (Auto) 0.7 % (0.0-2.0) Sodium Level 132 MMOL/L (136-145) L Potassium Level 5.0 MMOL/L (3.5-5.1) Chloride Level 97 MMOL/L (98-107) L Carbon Dioxide Level 24 MMOL/L (21-32) Anion Gap 11 mmol/L (5-15) Blood Urea Nitrogen 49 mg/dL (7-18) H Creatinine 2.4 MG/DL (0.55-1.30) H Estimat Glomerular Filtration Rate mL/min (>60) Glucose Level 253 MG/DL (74-106) H Lactic Acid Level 1.90 mmol/L (0.66-2.22) Calcium Level 9.1 MG/DL (8.5-10.1) Total Bilirubin 0.4 MG/DL (0.2-1.0) Aspartate Amino Transf (AST/SGOT) 39 U/L (15-37) H Alanine Aminotransferase (ALT/SGPT) 45 U/L (12-78) Alkaline Phosphatase 111 U/L (46-116) Total Protein 8.3 G/DL (6.4-8.2) H Albumin 2.7 G/DL (3.4-5.0) L Globulin 5.6 g/dL Albumin/Globulin Ratio 0.5 (1.0-2.7) L Height (Feet): 5 Height (Inches): 8.00 Weight (Pounds): 185 Medications Current Medications Medications (Trade) Dose Ordered Sig/Dari Route PRN Reason Start Time Stop Time Status Last Admin Dose Admin Acetaminophen (Tylenol) 650 mg Q4H PRN ORAL Mild Pain (Pain Scale 1-3) 10/11/17 16:45 11/10/17 16:44 UNV Acetaminophen (Tylenol) 650 mg Q4H PRN ORAL fever 10/11/17 16:45 11/10/17 16:44 UNV Acetaminophen (Tylenol) 650 mg Q4H PRN RECTAL Mild Pain (Pain Scale 1-3) 10/11/17 16:45 11/10/17 16:44 UNV Acetaminophen (Tylenol) 650 mg Q4H PRN RECTAL fever 10/11/17 16:45 11/10/17 16:44 UNV Amlodipine Besylate (Norvasc) 5 mg DAILY ORAL 10/12/17 09:00 11/11/17 08:59 UNV Bisacodyl (Dulcolax) 10 mg HSPRN PRN RECTAL Constipation 10/11/17 16:45 11/10/17 16:44 UNV Dextrose (Dextrose 50%) STAT PRN IV Hypoglycemia 10/11/17 16:45 11/10/17 16:44 UNV Dextrose (Dextrose 50%) STAT PRN IV Hypoglycemia 10/11/17 16:45 11/10/17 16:44 UNV Docusate Sodium (Colace) 100 mg EVERY 12 HOURS ORAL 10/11/17 21:00 11/10/17 20:59 UNV Finasteride (Proscar) 5 mg DAILY ORAL 10/12/17 09:00 11/11/17 08:59 UNV Heparin Sodium (Porcine) (Heparin 5000 units/ml) 5,000 units EVERY 12 HOURS SUBQ 10/11/17 21:00 11/10/17 20:59 UNV Insulin Aspart (NovoLOG) BEFORE MEALS AND HS SUBQ 10/11/17 21:00 11/10/17 20:59 UNV Mirtazapine (Remeron) 15 mg BEDTIME ORAL 10/11/17 21:00 11/10/17 20:59 UNV Ondansetron HCl (Zofran) 4 mg Q6H PRN IVP Nausea & Vomiting 10/11/17 16:45 11/10/17 16:44 UNV Oxycodone HCl (OxyCONTIN) 10 mg TID ORAL 10/11/17 18:00 10/18/17 17:59 UNV Oxycodone HCl (Roxicodone) 5 mg Q4H PRN ORAL moderate pain 10/11/17 16:45 10/18/17 16:44 UNV Oxycodone HCl (Roxicodone) 10 mg Q3HR PRN ORAL For Pain 10/11/17 16:45 10/18/17 16:44 UNV Oxycodone HCl (Roxicodone) 10 mg Q4H PRN ORAL severe pain 10/11/17 16:45 10/18/17 16:44 UNV Polyethylene Glycol (Miralax) 17 gm HSPRN PRN ORAL Constipation 10/11/17 16:45 11/10/17 16:44 UNV Sodium Chloride 1,000 ml @ 75 mls/hr [id number] IVLG 10/11/17 17:37 11/10/17 17:36 UNV Vancomycin HCl/ Dextrose 250 ml @ 125 mls/hr ONCE ONCE IVPB 10/11/17 15:15 10/11/17 17:14 10/11/17 15:27 Vitamin B Complex/ Vit C/Folic Acid (Nephrovite) 1 tab DAILY ORAL 10/12/17 09:00 11/11/17 08:59 UNV Vitamin D (Vitamin D) 2,000 intlu DAILY ORAL 10/12/17 09:00 11/11/17 08:59 UNV Assessment/Plan Problem List: (1) Sepsis ICD Codes: A41.9 - Sepsis, unspecified organism SNOMED: 35622763 (2) Cellulitis of left lower extremity ICD Codes: L03.116 - Cellulitis of left lower limb SNOMED: 129615002 (3) L heel diabetic ulcer with concern for osteomyelitis (4) MISHEL on CKD (5) CKD stage 3 (6) DM2 (diabetes mellitus, type 2) Assessment & Plan: A1C 9.9 ICD Codes: E11.9 - Type 2 diabetes mellitus without complications SNOMED: 14639807 (7) HTN (hypertension) ICD Codes: I10 - Essential (primary) hypertension SNOMED: 42454025 (8) Diabetic neuropathy ICD Codes: E11.40 - Type 2 diabetes mellitus with diabetic neuropathy, unspecified SNOMED: 04972094, 634890083, 858159571 (9) Diabetic nephropathy ICD Codes: E11.21 - Type 2 diabetes mellitus with diabetic nephropathy SNOMED: 19572755, 584761404 Qualifiers: Qualified Codes: E11.21 - Type 2 diabetes mellitus with diabetic nephropathy (10) Hyponatremia ICD Codes: E87.1 - Hypo-osmolality and hyponatremia SNOMED: 79036020 (11) Chronic diabetic ulcer right foot Status: stable Assessment/Plan Admit inpt Podiatry, ID, renal consulted Empiric vanco, cefepime and flagyl per ID F/u cultures Wound care per podiatry Check MRI L foot IVFs given MISHEL Avoid nephrotoxins Check renal U/S Check TTE Pain control, bowel regimen Supportive care Cont SNF meds but hold lasix, MTF ZENIA DVT Prophylaxis: HSQ Code Status: Full Hospital Classification Declaration: Based on this initial evaluation, and depending on the patient's clinical course, I anticipate that this patient will require hospitalization for 2-3 days for LLE cellulitis, L heel diabetic ulcer w / concern for osteo, and close respiratory/hemodynamic monitoring. Disposition: Once the patient is stable to leave the hospital, I anticipate the patient will likely be discharged to the following environment: back to SNF I spent 72 minutes on this patient's case, and >50% was dedicated to counseling and/or care coordination. Discussed with patient/family, nursing staff, SW/CM, [ ] regarding clinical status, treatment course, and disposition planning. Time of note may not reflect time of encounter. Conner Orozco M.D. Oct 11, 2017 16:45
--- NOTE | 2017-10-11 16:47 | Consultation ---
Consult Note Consult Note asked to eval for renal failure- HPI 72-year-old male presents ED for evaluation. Patient presenting from [facility] facility. Has ulcer to his left heel which is getting progressively worse. Noted by nursing staff. Sent here for further evaluation. Pain is a sharp, 8/10, nonradiating. Denies fevers or chills. Denies chest pain. Denies nausea or vomiting. No other aggravating factors. Denies any other associated symptoms Allergies: Coded Allergies: GABAPENTIN (Verified Allergy, Unknown, 10/11/17) OLIVE OIL (Verified Adverse Reaction, Severe, SPASM IN THE COLON, 01/18/14) PREGABALIN (Verified Adverse Reaction, Intermediate, "hypernervous", ) ACETAMINOPHEN (Verified Adverse Reaction, Mild, IRRITABILITY AND ELEVATED BLOOD PRESSURE, 01/18/14) IBUPROFEN (Verified Adverse Reaction, Mild, IRRITABILITY AND ELEVATED BLOOD PRESSURE, 01/18/14) Uncoded Allergies: SSRI (Allergy, Unknown, 10/11/17) Past Medical History: DM, HTN, other - BPH Hx Cardiac Problems: Yes - ASCVD, Chronic diastolic CHF, Anemia Hx Hypertension: Yes Hx Diabetes: Yes - DM2 Hx Gastrointestinal Problems: Yes - Benign prostatic hyperplasia Hx Neurological Problems: No - Pressure ulcer, Osteomyelitis, Difficulty walking,Left artificial hip joint Hx Vertigo: Yes Hx Dizziness: Yes Hx Headaches: Yes Hx Weakness: Yes - IN THE LEGS Hx Fatigue: Yes Assessment/Plan Foot ulcer, left Renal insufficiency Anemia Kidney FAMILIA 2D echo Avoid Nephrotoxics Keep BP in check monitor renal parameters Anemia IHSAN Lemos Oct 11, 2017 16:47
--- NOTE | 2017-10-11 17:42 | Consultation ---
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
[2017-10-11] MEDS ORDERED: oxyCONTIN 10mg tab ORAL SCH (18:00)
[2017-10-11 20:00] VITALS: BP 120/59
[2017-10-11] MEDS: Heparin 5000 units/ml inj SUBQ SCH ×2 (21:00→21:25)
[2017-10-11] MEDS: Tamsulosin 0.4mg cap ORAL SCH ×2 (21:00→21:20)
[2017-10-11] MEDS: Docusate 100mg cap ORAL SCH ×2 (21:00→21:20)
[2017-10-11] MEDS: NovoLOG Insulin Flexpen SUBQ SCH (21:26)
[2017-10-11] MEDS: oxyCONTIN 10mg tab ORAL SCH (21:27)
--- NOTE | 2017-10-11 22:11 | Infectious Diseases Prog Note ---
Assessment/Plan Assessment/Plan Full consult dictated: A) 1) left leg cellulitis, left heel ulcer, ? osteo, leukocytosis, lgt 2) pmh noted 3) allergies - noted P) 1) vancomycin, cefepime and flagyl 2) check wc, labs, MRI 3) continue treatment per Dr. Prieto and consultants 4) podiatry f/u 5) thanks Subjective Allergies: Coded Allergies: GABAPENTIN (Verified Allergy, Unknown, 10/11/17) OLIVE OIL (Verified Adverse Reaction, Severe, SPASM IN THE COLON, 01/18/14) PREGABALIN (Verified Adverse Reaction, Intermediate, "hypernervous", ) ACETAMINOPHEN (Verified Adverse Reaction, Mild, IRRITABILITY AND ELEVATED BLOOD PRESSURE, 01/18/14) IBUPROFEN (Verified Adverse Reaction, Mild, IRRITABILITY AND ELEVATED BLOOD PRESSURE, 01/18/14) Uncoded Allergies: SSRI (Allergy, Unknown, 10/11/17) Objective Vital Signs Last 24 Hour Vital Signs Date Time Temp Pulse Resp B/P (MAP) Pulse Ox O2 Delivery O2 Flow Rate FiO2 10/11/17 20:00 99.4 90 20 120/59 95 99.4 10/11/17 16:54 99.0 80 18 130/62 96 Room Air 99.0 10/11/17 16:35 99.0 80 18 130/62 96 Room Air 99.0 10/11/17 16:31 99.0 10/11/17 15:27 99.0 10/11/17 14:48 99.0 83 20 133/61 96 Room Air 99.0 10/11/17 14:30 99.0 83 20 133/61 96 Room Air 99.0 Height (Feet): 5 Height (Inches): 8.00 Weight (Pounds): 185 Laboratory Tests Test 10/11/17 15:30 White Blood Count 16.4 K/UL (4.8-10.8) H Red Blood Count 4.37 M/UL (4.70-6.10) L Hemoglobin 11.7 G/DL (14.2-18.0) L Hematocrit 35.4 % (42.0-52.0) L Mean Corpuscular Volume 81 FL (80-99) Mean Corpuscular Hemoglobin 26.8 PG (27.0-31.0) L Mean Corpuscular Hemoglobin Concent 33.1 G/DL (32.0-36.0) Red Cell Distribution Width 15.1 % (11.6-14.8) H Platelet Count 513 K/UL (150-450) H Mean Platelet Volume 5.2 FL (6.5-10.1) L Neutrophils (%) (Auto) 84.7 % (45.0-75.0) H Lymphocytes (%) (Auto) 7.3 % (20.0-45.0) L Monocytes (%) (Auto) 5.2 % (1.0-10.0) Eosinophils (%) (Auto) 2.1 % (0.0-3.0) Basophils (%) (Auto) 0.7 % (0.0-2.0) Sodium Level 132 MMOL/L (136-145) L Potassium Level 5.0 MMOL/L (3.5-5.1) Chloride Level 97 MMOL/L (98-107) L Carbon Dioxide Level 24 MMOL/L (21-32) Anion Gap 11 mmol/L (5-15) Blood Urea Nitrogen 49 mg/dL (7-18) H Creatinine 2.4 MG/DL (0.55-1.30) H Estimat Glomerular Filtration Rate mL/min (>60) Glucose Level 253 MG/DL (74-106) H Lactic Acid Level 1.90 mmol/L (0.66-2.22) Calcium Level 9.1 MG/DL (8.5-10.1) Total Bilirubin 0.4 MG/DL (0.2-1.0) Aspartate Amino Transf (AST/SGOT) 39 U/L (15-37) H Alanine Aminotransferase (ALT/SGPT) 45 U/L (12-78) Alkaline Phosphatase 111 U/L (46-116) C-Reactive Protein, Quantitative 26.0 mg/dL (0.00-0.90) H Total Protein 8.3 G/DL (6.4-8.2) H Albumin 2.7 G/DL (3.4-5.0) L Globulin 5.6 g/dL Albumin/Globulin Ratio 0.5 (1.0-2.7) L Current Medications Medications (Trade) Dose Ordered Sig/Dari Route PRN Reason Start Time Stop Time Status Last Admin Dose Admin Acetaminophen (Tylenol) 650 mg Q4H PRN ORAL Mild Pain (Scale 1-3), fever 10/11/17 16:45 11/10/17 16:44 Acetaminophen (Tylenol) 650 mg Q4H PRN RECTAL Mild Pain (Scale 1-3), FEVER 10/11/17 16:45 11/10/17 16:44 Amlodipine Besylate (Norvasc) 5 mg DAILY ORAL 10/12/17 09:00 11/11/17 08:59 Bisacodyl (Dulcolax) 10 mg HSPRN PRN RECTAL Constipation 10/11/17 17:15 11/10/17 17:14 Dextrose (Dextrose 50%) STAT PRN IV Hypoglycemia 10/11/17 16:45 11/10/17 16:44 Docusate Sodium (Colace) 100 mg EVERY 12 HOURS ORAL 10/11/17 21:00 11/10/17 20:59 Finasteride (Proscar) 5 mg DAILY ORAL 10/12/17 09:00 11/11/17 08:59 Heparin Sodium (Porcine) (Heparin 5000 units/ml) 5,000 units EVERY 12 HOURS SUBQ 10/11/17 21:00 11/10/17 20:59 Insulin Aspart (NovoLOG) BEFORE MEALS AND HS SUBQ 10/11/17 21:00 11/10/17 20:59 10/11/17 21:26 Mirtazapine (Remeron) 15 mg BEDTIME ORAL 10/11/17 21:00 11/10/17 20:59 Ondansetron HCl (Zofran) 4 mg Q6H PRN IVP Nausea & Vomiting 10/11/17 16:45 11/10/17 16:44 Oxycodone HCl (OxyCONTIN) 10 mg Q8HR ORAL 10/11/17 22:00 10/18/17 21:59 10/11/17 21:27 Oxycodone HCl (Roxicodone) 5 mg Q4H PRN ORAL moderate pain 10/11/17 16:45 10/18/17 16:44 Oxycodone HCl (Roxicodone) 10 mg Q4H PRN ORAL severe pain 10/11/17 16:45 10/18/17 16:44 Polyethylene Glycol (Miralax) 17 gm HSPRN PRN ORAL Constipation 10/11/17 16:45 11/10/17 16:44 Sodium Chloride 1,000 ml @ 75 mls/hr [id number] IVLG 10/11/17 17:37 11/10/17 17:36 10/11/17 21:34 Tamsulosin HCl (Flomax) 0.4 mg BEDTIME ORAL 10/11/17 21:00 11/10/17 20:59 Vancomycin HCl (Vanco rx to dose) 1 ea DAILY PRN MISC Per rx protocol 10/11/17 16:45 11/10/17 16:44 Vitamin B Complex/ Vit C/Folic Acid (Nephrovite) 1 tab DAILY ORAL 10/12/17 09:00 11/11/17 08:59 Vitamin D (Vitamin D) 2,000 intlu DAILY ORAL 10/12/17 09:00 11/11/17 08:59 LARON HERNANDEZ Oct 11, 2017 22:10
[2017-10-11] MEDS: oxyCODONE 5mg IR tab ORAL PRN (23:11)
[2017-10-11] MEDS ORDERED: Cefepime 1gm vial ONE (23:19)
[2017-10-12] VITALS: BP 125/71
[2017-10-12 04:00] VITALS: BP 134/68
[2017-10-12] MEDS: oxyCONTIN 10mg tab ORAL SCH ×4 (06:00→22:00)
[2017-10-12] MEDS: metroNIDAZOLE 500mg tab ORAL SCH ×3 (06:00→14:00)
[2017-10-12] MEDS: NovoLOG Insulin Flexpen SUBQ SCH ×4 (06:10→22:14)
[2017-10-12] MEDS: oxyCODONE 5mg IR tab ORAL PRN ×3 (06:21→22:09)
[2017-10-12 07:41] LABS: APPEARANCE,URINE TURBID; BILIRUBIN, URINE NEGATIVE (NEGATIVE); COLOR,URINE PALE YELLOW; GLUCOSE, URINE (UA) NEGATIVE (NEGATIVE); KETONES,URINE NEGATIVE (NEGATIVE); LEUKOCYTE ESTERASE ,URINE 3+ (NEGATIVE); NITRITE,URINE NEGATIVE (NEGATIVE); PH,URINE 5 (4.5-8.0); PROTEIN,URINE 2+ (NEGATIVE); UROBILINOGEN,URINE NORMAL MG/DL (0.0-1.0)
[2017-10-12 08:00] VITALS: BP 102/57
[2017-10-12] MEDS: Docusate 100mg cap ORAL SCH ×3 (09:00→21:00)
[2017-10-12] MEDS: Heparin 5000 units/ml inj SUBQ SCH ×2 (09:00→21:00)
[2017-10-12] MEDS: Vitamin D 400 INTLU TAB ORAL SCH (09:33)
[2017-10-12] MEDS: Nephrovite tab (Rena-Vite) ORAL SCH (09:35)
[2017-10-12 12:00] VITALS: BP 164/73
--- NOTE | 2017-10-12 12:48 | Nephrology Progress Note ---
Assessment/Plan Problem List: (1) HTN (hypertension) (2) Diabetes mellitus (3) Ulcer of left heel (4) Renal insufficiency Assessment Foot ulcer, left left leg cellulitis, left heel ulcer, ? osteo, leukocytosis, lgt Renal insufficiency acute vs chronic Anemia UTI Plan today's labs pending Kidney FAMILIA 2D echo Avoid Nephrotoxics Keep BP in check monitor renal parameters Anemia henry urine studies Subjective ROS Limited/Unobtainable: No Constitutional: Reports: malaise Objective Objective Last 24 Hour Vital Signs Date Time Temp Pulse Resp B/P (MAP) Pulse Ox O2 Delivery O2 Flow Rate FiO2 10/12/17 12:00 97.7 98 20 164/73 95 97.7 10/12/17 09:34 83 115/61 10/12/17 08:00 96.5 83 20 102/57 98 96.5 10/12/17 04:00 97.7 76 20 134/68 96 97.7 10/12/17 00:00 98.6 89 20 125/71 98 98.6 10/11/17 20:00 99.4 90 20 120/59 95 99.4 10/11/17 16:54 99.0 80 18 130/62 96 Room Air 99.0 10/11/17 16:35 99.0 80 18 130/62 96 Room Air 99.0 10/11/17 16:31 99.0 10/11/17 15:27 99.0 10/11/17 14:48 99.0 83 20 133/61 96 Room Air 99.0 10/11/17 14:30 99.0 83 20 133/61 96 Room Air 99.0 Intake and Output 10/11/17 10/12/17 19:00 07:00 Intake Total 120 ml Output Total 400 ml Balance 120 ml -400 ml Intake Oral 120 ml Output Urine Total 400 ml # Voids 1 Laboratory Tests 10/11/17 15:30: White Blood Count 16.4H, Red Blood Count 4.37L, Hemoglobin 11.7L, Hematocrit 35.4L, Mean Corpuscular Volume 81, Mean Corpuscular Hemoglobin 26.8L, Mean Corpuscular Hemoglobin Concent 33.1, Red Cell Distribution Width 15.1H, Platelet Count 513H, Mean Platelet Volume 5.2L, Neutrophils (%) (Auto) 84.7H, Lymphocytes (%) (Auto) 7.3L, Monocytes (%) (Auto) 5.2, Eosinophils (%) (Auto) 2.1, Basophils (%) (Auto) 0.7, Sodium Level 132L, Potassium Level 5.0, Chloride Level 97L, Carbon Dioxide Level 24, Anion Gap 11, Blood Urea Nitrogen 49H, Creatinine 2.4H, Estimat Glomerular Filtration Rate , Glucose Level 253H, Lactic Acid Level 1.90, Calcium Level 9.1, Total Bilirubin 0.4, Aspartate Amino Transf (AST/SGOT) 39H, Alanine Aminotransferase (ALT/SGPT) 45, Alkaline Phosphatase 111, C-Reactive Protein, Quantitative 26.0H, Total Protein 8.3H, Albumin 2.7L, Globulin 5.6, Albumin/Globulin Ratio 0.5L 10/12/17 06:45: Urine Color Pale yellow, Urine Appearance Turbid, Urine pH 5, Urine Specific [place] 1.010, Urine Protein 2+H, Urine Glucose (UA) Negative, Urine Ketones Negative, Urine Occult Blood 2+H, Urine Nitrite Negative, Urine Bilirubin Negative, Urine Urobilinogen Normal, Urine Leukocyte Esterase 3+H, Urine RBC 2- 4H, Urine WBC TntcH, Urine Squamous Epithelial Cells Few, Urine Bacteria Few, Urine Granular Casts 0-2H, Urine Yeast FewH, Urine Eosinophils None seen, Urine Random Sodium 29 Height (Feet): 5 Height (Inches): 8.00 Weight (Pounds): 185 General Appearance: no apparent distress Cardiovascular: tachycardia Respiratory/Chest: decreased breath sounds Abdomen: distended Extremities: other - swollen IHSAN REGALADO Oct 12, 2017 12:48
[2017-10-12 13:04] LABS: HEMATOCRIT 34.3 % (42.0-52.0); HEMOGLOBIN 10.8 G/DL (14.2-18.0); MEAN CORPUSCULAR VOLUME 81 FL (80-99); PLATELET COUNT 511 K/UL (150-450); RED BLOOD COUNT 4.24 M/UL (4.70-6.10); RED CELL DISTRIBUTION WIDTH 14.6 % (11.6-14.8); WHITE BLOOD COUNT 15.6 K/UL (4.8-10.8)
--- NOTE | 2017-10-12 13:28 | Diagnostic Imaging Report ---
Indication: Acute renal failure, increased BUN/creatinine Technique: Grayscale and duplex images of the kidneys, retroperitoneum, and bladder Comparison: none Findings: Right kidney measures 12.1 cm in length. The left kidney measures 11.5 cm length. Both kidneys demonstrate normal echogenicity. No hydronephrosis. No focal abnormality. Prevoid bladder volume is to 337 mL. No postvoid images available as patient was unable to void. Unremarkable inferior vena cava Impression: Unremarkable kidneys. Negative for hydronephrosis Note inability of the patient to void with a bladder volume of 337 mL
[2017-10-12] MEDS: Tamsulosin 0.4mg cap ORAL SCH ×2 (13:30→21:00)
[2017-10-12 13:35] LABS: ALANINE AMINOTRANSFERASE 41 U/L (12-78); ALBUMIN 2.5 G/DL (3.4-5.0); ALBUMIN/GLOBULIN RATIO 0.5 (1.0-2.7); ALKALINE PHOSPHATASE 106 U/L (46-116); ANION GAP 12 mmol/L (5-15); ASPARTATE AMINO TRANSFERASE 25 U/L (15-37); BILIRUBIN,TOTAL 0.5 MG/DL (0.2-1.0); BLOOD UREA NITROGEN 46 mg/dL (7-18); CALCIUM 8.9 MG/DL (8.5-10.1); CARBON DIOXIDE 23 MMOL/L (21-32); CHLORIDE 98 MMOL/L (98-107); CHOLESTEROL 122 MG/DL (< 200); FERRITIN 531 NG/ML (8-388); HDL CHOLESTEROL 32 MG/DL (40-60); PHOSPHORUS 3.7 MG/DL (2.5-4.9); POTASSIUM 4.8 MMOL/L (3.5-5.1); SODIUM 132 MMOL/L (136-145); TRIGLYCERIDES 67 MG/DL (30-150)
[2017-10-12 13:36] LABS: % IRON SATURATION 7 % (15-50); IRON 9 ug/dL (50-175); TOTAL IRON BINDING CAPACITY 127 ug/dL (250-450)
--- NOTE | 2017-10-12 13:48 | Diagnostic Imaging Report ---
Indication: Left heel wound. History of left heel osteomyelitis Technique: Sagittal, axial, and coronal FSE STIR images of the ankle. Sagittal and coronal T1 FSE images. No axial T1, as patient unable to tolerate further imaging Comparison: 08/02/2017 Findings: Extensive abnormal low T1 and high STIR signal is now seen throughout the posterior calcaneus, markedly increased from the amount of signal abnormality demonstrated previously. The marrow signal in the other bones is preserved. There is marked thinning of the soft tissues overlying the calcaneal tuberosity, now possibly with exposed bone medially. This has progressed since the previous exam Small amount of gas is seen within the soft tissues medially. This is a new finding. There is tear and retraction of the calcaneal tendon, beginning approximate 4 cm above the insertion. There is extensive edema between the tip of the torn tendon and the calcaneal tuberosity. Uncertain as to whether this represents edema from the tear versus infection reversal combination of both. There is diffuse edema of the subcutaneous fat. There is a slightly prominent fluid within the tibiotalar joint. There is some fatty replacement of the posterior foot musculature. No focal drainable fluid collections are evident. Impression: Positive for progressive osteomyelitis of the posterior calcaneus, since prior study of 08/02/2017 Increasing ulceration of the overlying soft tissues, with possible exposure of the medial aspect of the calcaneal tuberosity. Small amount of gas within the medial soft tissues,. The related open wound or could indicate infection by gas-forming organism Complete tear with retraction of the calcaneal tendon, as described. Fluid in the tibiotalar joint. Probably reactive secondary to the above Diffuse edema of the subcutaneous fat. This could be due to cellulitis or could be related to hemodynamic abnormalities Other findings as noted Findings discussed by phone with Dr. Prieto at the time of interpretation
[2017-10-12 14:19] LABS: GAMMA GLUTAMYL TRANSPEPTIDASE 32 U/L (5-85)
[2017-10-12] MEDS ORDERED: Vancomycin 1250mg/D5W 250ml IVPB ONE (16:00)
[2017-10-12 16:06] VITALS: BP 134/57
[2017-10-12 21:30] VITALS: BP 135/60
[2017-10-12] MEDS ORDERED: Cefepime HCl 1 GM in NS 55 ML IVPB SCH (22:00)
--- NOTE | 2017-10-12 22:28 | Infectious Diseases Prog Note ---
Assessment/Plan Assessment/Plan Full consult dictated: A) 1) left leg cellulitis, gram neg left heel wound infection/ulcer infection, + osteo, leukocytosis, lgt, uti, ? sepsis 2) pmh noted 3) allergies - noted P) 1) vancomycin, cefepime and flagyl 2) check wound culture, labs 3) continue treatment per Dr. Prieto and consultants 4) podiatry f/u 5) likely will need 6 weeks abx Subjective Constitutional: Denies: fever Respiratory: Denies: shortness of breath Cardiovascular: Denies: chest pain Gastrointestinal/Abdominal: Denies: nausea, vomiting, diarrhea Allergies: Coded Allergies: GABAPENTIN (Verified Allergy, Unknown, 10/11/17) OLIVE OIL (Verified Adverse Reaction, Severe, SPASM IN THE COLON, 01/18/14) PREGABALIN (Verified Adverse Reaction, Intermediate, "hypernervous", ) ACETAMINOPHEN (Verified Adverse Reaction, Mild, IRRITABILITY AND ELEVATED BLOOD PRESSURE, 01/18/14) IBUPROFEN (Verified Adverse Reaction, Mild, IRRITABILITY AND ELEVATED BLOOD PRESSURE, 01/18/14) Uncoded Allergies: SSRI (Allergy, Unknown, 10/11/17) Objective Vital Signs Last 24 Hour Vital Signs Date Time Temp Pulse Resp B/P (MAP) Pulse Ox O2 Delivery O2 Flow Rate FiO2 10/12/17 21:30 97.0 89 17 135/60 95 Room Air 97.0 10/12/17 16:06 97.9 90 22 134/57 99 Room Air 97.9 10/12/17 12:00 97.7 98 20 164/73 95 97.7 10/12/17 09:34 83 115/61 10/12/17 08:00 96.5 83 20 102/57 98 96.5 10/12/17 04:00 97.7 76 20 134/68 96 97.7 10/12/17 00:00 98.6 89 20 125/71 98 98.6 Height (Feet): 5 Height (Inches): 8.00 Weight (Pounds): 185 General Appearance: no acute distress HEENT: normocephalic, atraumatic, anicteric Respiratory/Chest: lungs clear, normal breath sounds, no accessory muscle use Cardiovascular: normal rate, regular rhythm, no gallop/murmur Abdomen: normal bowel sounds, soft, non tender, no organomegaly Extremities: other - left leg cellulitis better Microbiology Date/Time Source Procedure Growth Status 10/11/17 17:00 Foot Left Gram Stain - Final Resulted 10/11/17 17:00 Wound Culture - Preliminary Gram Negative Bacillus 1 Resulted Laboratory Tests Test 10/12/17 06:45 10/12/17 12:50 Urine Color Pale yellow Urine Appearance Turbid Urine pH 5 (4.5-8.0) Urine Specific [place] 1.010 (1.005-1.035) Urine Protein 2+ (NEGATIVE) H Urine Glucose (UA) Negative (NEGATIVE) Urine Ketones Negative (NEGATIVE) Urine Occult Blood 2+ (NEGATIVE) H Urine Nitrite Negative (NEGATIVE) Urine Bilirubin Negative (NEGATIVE) Urine Urobilinogen Normal MG/DL (0.0-1.0) Urine Leukocyte Esterase 3+ (NEGATIVE) H Urine RBC 2-4 /HPF (0 - 0) H Urine WBC Tntc /HPF (0 - 0) H Urine Squamous Epithelial Cells Few /LPF (NONE/OCC) Urine Bacteria Few /HPF (NONE) Urine Granular Casts 0-2 /LPF (NONE) H Urine Yeast Few /HPF (NONE) H Urine Eosinophils None seen Urine Random Sodium 29 MEQ/L (20-110) White Blood Count 15.6 K/UL (4.8-10.8) H Red Blood Count 4.24 M/UL (4.70-6.10) L Hemoglobin 10.8 G/DL (14.2-18.0) L Hematocrit 34.3 % (42.0-52.0) L Mean Corpuscular Volume 81 FL (80-99) Mean Corpuscular Hemoglobin 25.6 PG (27.0-31.0) L Mean Corpuscular Hemoglobin Concent 31.6 G/DL (32.0-36.0) L Red Cell Distribution Width 14.6 % (11.6-14.8) Platelet Count 511 K/UL (150-450) H Mean Platelet Volume 5.3 FL (6.5-10.1) L Neutrophils (%) (Auto) % (45.0-75.0) Lymphocytes (%) (Auto) % (20.0-45.0) Monocytes (%) (Auto) % (1.0-10.0) Eosinophils (%) (Auto) % (0.0-3.0) Basophils (%) (Auto) % (0.0-2.0) Differential Total Cells Counted 100 Neutrophils % (Manual) 88 % (45-75) H Lymphocytes % (Manual) 6 % (20-45) L Monocytes % (Manual) 5 % (1-10) Eosinophils % (Manual) 0 % (0-3) Basophils % (Manual) 0 % (0-2) Band Neutrophils 1 % (0-8) Platelet Estimate Increased H Platelet Morphology Normal Hypochromasia 2+ Sodium Level 132 MMOL/L (136-145) L Potassium Level 4.8 MMOL/L (3.5-5.1) Chloride Level 98 MMOL/L (98-107) Carbon Dioxide Level 23 MMOL/L (21-32) Anion Gap 12 mmol/L (5-15) Blood Urea Nitrogen 46 mg/dL (7-18) H Creatinine 2.0 MG/DL (0.55-1.30) H Estimat Glomerular Filtration Rate mL/min (>60) Glucose Level 171 MG/DL (74-106) H Hemoglobin A1c 9.9 % (4.3-6.0) H Uric Acid 10.5 MG/DL (2.6-7.2) H Calcium Level 8.9 MG/DL (8.5-10.1) Phosphorus Level 3.7 MG/DL (2.5-4.9) Magnesium Level 2.0 MG/DL (1.5-2.4) Iron Level 9 ug/dL (50-175) L Total Iron Binding Capacity 127 ug/dL (250-450) L Percent Iron Saturation 7 % (15-50) L Unsaturated Iron Binding 118 ug/dL (112-346) Ferritin 531 NG/ML (8-388) H Total Bilirubin 0.5 MG/DL (0.2-1.0) Gamma Glutamyl Transpeptidase 32 U/L (5-85) Aspartate Amino Transf (AST/SGOT) 25 U/L (15-37) Alanine Aminotransferase (ALT/SGPT) 41 U/L (12-78) Alkaline Phosphatase 106 U/L (46-116) Pro-B-Type Natriuretic Peptide 2306 pg/mL (0-125) H Total Protein 7.6 G/DL (6.4-8.2) Albumin 2.5 G/DL (3.4-5.0) L Globulin 5.1 g/dL Albumin/Globulin Ratio 0.5 (1.0-2.7) L Triglycerides Level 67 MG/DL (30-150) Cholesterol Level 122 MG/DL (< 200) LDL Cholesterol 85 mg/dL (<100) HDL Cholesterol 32 MG/DL (40-60) L Cholesterol/HDL Ratio 3.8 (3.3-4.4) Vitamin B12 Level 1791 PG/ML (193-986) H Folate 41.0 NG/ML (8.6-58.9) Thyroid Stimulating Hormone (TSH) 3.204 uiU/mL (0.358-3.740) Random Vancomycin Level 11.7 ug/mL Current Medications Medications (Trade) Dose Ordered Sig/Dari Route PRN Reason Start Time Stop Time Status Last Admin Dose Admin Acetaminophen (Tylenol) 650 mg Q4H PRN ORAL Mild Pain (Scale 1-3), fever 10/11/17 16:45 11/10/17 16:44 Amlodipine Besylate (Norvasc) 5 mg DAILY ORAL 10/12/17 09:00 11/11/17 08:59 10/12/17 09:34 Bisacodyl (Dulcolax) 10 mg HSPRN PRN RECTAL Constipation 10/11/17 17:15 11/10/17 17:14 Cefepime HCl 2 gm/ Sodium Chloride 110 ml @ 220 mls/hr QHS IV 10/12/17 21:00 10/19/17 20:59 Dextrose (Dextrose 50%) STAT PRN IV Hypoglycemia 10/11/17 16:45 11/10/17 16:44 Docusate Sodium (Colace) 100 mg TID ORAL 10/12/17 13:30 11/10/17 13:29 Finasteride (Proscar) 5 mg DAILY ORAL 10/12/17 09:00 11/11/17 08:59 10/12/17 09:33 Heparin Sodium (Porcine) (Heparin 5000 units/ml) 5,000 units EVERY 12 HOURS SUBQ 10/11/17 21:00 11/10/17 20:59 Insulin Aspart (NovoLOG) BEFORE MEALS AND HS SUBQ 10/11/17 21:00 11/10/17 20:59 10/12/17 16:30 Metronidazole 100 ml @ 100 mls/hr Q8HR IVPB 10/12/17 22:00 3/7/18 21:59 Mirtazapine (Remeron) 15 mg BEDTIME ORAL 10/11/17 21:00 11/10/17 20:59 Ondansetron HCl (Zofran) 4 mg Q6H PRN IVP Nausea & Vomiting 10/11/17 16:45 11/10/17 16:44 Oxycodone HCl (OxyCONTIN) 10 mg Q8HR ORAL 10/11/17 22:00 10/18/17 21:59 10/11/17 21:27 Oxycodone HCl (Roxicodone) 5 mg Q4H PRN ORAL moderate pain 10/11/17 16:45 10/18/17 16:44 Oxycodone HCl (Roxicodone) 10 mg Q4H PRN ORAL severe pain 10/11/17 16:45 10/18/17 16:44 10/12/17 12:39 Polyethylene Glycol (Miralax) 17 gm HSPRN PRN ORAL Constipation 10/11/17 16:45 11/10/17 16:44 Sodium Chloride 1,000 ml @ 75 mls/hr [id number] IVLG 10/11/17 17:37 11/10/17 17:36 10/12/17 06:11 Tamsulosin HCl (Flomax) 0.4 mg BID ORAL 10/12/17 13:30 11/10/17 13:29 Vancomycin HCl (Vanco rx to dose) 1 ea DAILY PRN MISC Per rx protocol 10/11/17 16:45 11/10/17 16:44 Vitamin B Complex/ Vit C/Folic Acid (Nephrovite) 1 tab DAILY ORAL 10/12/17 09:00 11/11/17 08:59 10/12/17 09:35 Vitamin D (Vitamin D) 2,000 intlu DAILY ORAL 10/12/17 09:00 11/11/17 08:59 10/12/17 09:33 LARON HERNANDEZ Oct 12, 2017 22:28
[2017-10-12] MEDS: Cefepime HCl 2 GM in NS 110 ML IV SCH (23:41)
[2017-10-13] VITALS (10 sets, daily range): BP systolic 113–141; BP diastolic 42–94
--- NOTE | 2017-10-13 00:07 | General Progress Note ---
Assessment/Plan Problem List: (1) Sepsis ICD Codes: A41.9 - Sepsis, unspecified organism SNOMED: 71218809 (2) Progressive osteomyelitis of the posterior calcaneus (3) Cellulitis of left lower extremity ICD Codes: L03.116 - Cellulitis of left lower limb SNOMED: 283431038 (4) L heel diabetic ulcer with concern for osteomyelitis (5) Complete tear with retraction of the calcaneal tendon (6) MISHEL on CKD (7) CKD stage 3 (8) DM2 (diabetes mellitus, type 2) Assessment & Plan: A1C 9.9 ICD Codes: E11.9 - Type 2 diabetes mellitus without complications SNOMED: 95602866 (9) HTN (hypertension) ICD Codes: I10 - Essential (primary) hypertension SNOMED: 49700407 (10) Diabetic neuropathy ICD Codes: E11.40 - Type 2 diabetes mellitus with diabetic neuropathy, unspecified SNOMED: 61116396, 751036372, 675980899 (11) Diabetic nephropathy ICD Codes: E11.21 - Type 2 diabetes mellitus with diabetic nephropathy SNOMED: 12919901, 847653051 Qualifiers: Qualified Codes: E11.21 - Type 2 diabetes mellitus with diabetic nephropathy (12) Hyponatremia ICD Codes: E87.1 - Hypo-osmolality and hyponatremia SNOMED: 90004692 (13) Chronic diabetic ulcer right foot Status: stable Assessment/Plan Podiatry, ID, renal consulted Empiric vanco, cefepime and flagyl per ID F/u cultures Wound care per podiatry Check MRI L foot--shows progressive osteomyelitis, heel ulceration, soft tissue gas, complete tear of Achilles tendon NPO at [place] for OR tomorrow IVFs given MISHEL Avoid nephrotoxins Check renal U/S Check TTE Pain control, bowel regimen Supportive care Cont SNF meds but hold lasix, MTF for now ZENIA DVT Prophylaxis: HSQ Code Status: Full Hospital Classification Declaration: Based on this initial evaluation, and depending on the patient's clinical course, I anticipate that this patient will require hospitalization for 2-3 days for LLE cellulitis, L heel diabetic ulcer w / concern for osteo, and close respiratory/hemodynamic monitoring. Disposition: Once the patient is stable to leave the hospital, I anticipate the patient will likely be discharged to the following environment: back to SNF I spent 72 minutes on this patient's case, and >50% was dedicated to counseling and/or care coordination. Discussed with patient/family, nursing staff, SW/CM, [ ] regarding clinical status, treatment course, and disposition planning. Subjective Date patient seen: Oct 12, 2017 Time patient seen: 12:30 ROS Limited/Unobtainable: No Constitutional: Reports: chills, weakness HEENT: Reports: no symptoms Cardiovascular: Reports: no symptoms Respiratory: Reports: no symptoms Gastrointestinal/Abdominal: Reports: no symptoms Genitourinary: Reports: no symptoms Neurologic/Psychiatric: Reports: no symptoms Endocrine: Reports: no symptoms Hematologic/Lymphatic: Reports: no symptoms Allergies: Coded Allergies: GABAPENTIN (Verified Allergy, Unknown, 10/11/17) OLIVE OIL (Verified Adverse Reaction, Severe, SPASM IN THE COLON, 01/18/14) PREGABALIN (Verified Adverse Reaction, Intermediate, "hypernervous", ) ACETAMINOPHEN (Verified Adverse Reaction, Mild, IRRITABILITY AND ELEVATED BLOOD PRESSURE, 01/18/14) IBUPROFEN (Verified Adverse Reaction, Mild, IRRITABILITY AND ELEVATED BLOOD PRESSURE, 01/18/14) Uncoded Allergies: SSRI (Allergy, Unknown, 10/11/17) All Systems: reviewed and negative except above Subjective No acute o/n events MRI L foot shows progressive osteomyelitis, heel ulcer, soft tissue gas, complete tear of Achilles tendon. D/w podiatry who will plan for OR tomorrow Pt c/o foot pain. Lethargic, some chills. Denies n/v, d/c, chest pain, SOB, abd pain Objective Last 24 Hour Vital Signs Date Time Temp Pulse Resp B/P (MAP) Pulse Ox O2 Delivery O2 Flow Rate FiO2 10/12/17 21:30 97.0 89 17 135/60 95 Room Air 97.0 10/12/17 16:06 97.9 90 22 134/57 99 Room Air 97.9 10/12/17 12:00 97.7 98 20 164/73 95 97.7 10/12/17 09:34 83 115/61 10/12/17 08:00 96.5 83 20 102/57 98 96.5 10/12/17 04:00 97.7 76 20 134/68 96 97.7 Intake and Output 10/12/17 10/13/17 19:00 07:00 Intake Total 825 ml Output Total 400 ml Balance 425 ml IV Total 825 ml Output Urine Total 400 ml # Voids 1 Laboratory Tests 10/12/17 06:45: Urine Color Pale yellow, Urine Appearance Turbid, Urine pH 5, Urine Specific [place] 1.010, Urine Protein 2+H, Urine Glucose (UA) Negative, Urine Ketones Negative, Urine Occult Blood 2+H, Urine Nitrite Negative, Urine Bilirubin Negative, Urine Urobilinogen Normal, Urine Leukocyte Esterase 3+H, Urine RBC 2- 4H, Urine WBC TntcH, Urine Squamous Epithelial Cells Few, Urine Bacteria Few, Urine Granular Casts 0-2H, Urine Yeast FewH, Urine Eosinophils None seen, Urine Random Sodium 29 10/12/17 12:50: White Blood Count 15.6H, Red Blood Count 4.24L, Hemoglobin 10.8L, Hematocrit 34.3L, Mean Corpuscular Volume 81, Mean Corpuscular Hemoglobin 25.6L, Mean Corpuscular Hemoglobin Concent 31.6L, Red Cell Distribution Width 14.6, Platelet Count 511H, Mean Platelet Volume 5.3L, Neutrophils (%) (Auto) , Lymphocytes (%) (Auto) , Monocytes (%) (Auto) , Eosinophils (%) (Auto) , Basophils (%) (Auto) , Differential Total Cells Counted 100, Neutrophils % ( Manual) 88H, Lymphocytes % (Manual) 6L, Monocytes % (Manual) 5, Eosinophils % ( Manual) 0, Basophils % (Manual) 0, Band Neutrophils 1, Platelet Estimate IncreasedH, Platelet Morphology Normal, Hypochromasia 2+, Sodium Level 132L, Potassium Level 4.8, Chloride Level 98, Carbon Dioxide Level 23, Anion Gap 12, Blood Urea Nitrogen 46H, Creatinine 2.0H, Estimat Glomerular Filtration Rate , Glucose Level 171H, Hemoglobin A1c 9.9H, Uric Acid 10.5H, Calcium Level 8.9, Phosphorus Level 3.7, Magnesium Level 2.0, Iron Level 9L, Total Iron Binding Capacity 127L, Percent Iron Saturation 7L, Unsaturated Iron Binding 118, Ferritin 531H, Total Bilirubin 0.5, Gamma Glutamyl Transpeptidase 32, Aspartate Amino Transf (AST/SGOT) 25, Alanine Aminotransferase (ALT/SGPT) 41, Alkaline Phosphatase 106, Pro-B-Type Natriuretic Peptide 2306H, Total Protein 7.6, Albumin 2.5L, Globulin 5.1, Albumin/Globulin Ratio 0.5L, Triglycerides Level 67 , Cholesterol Level 122, LDL Cholesterol 85, HDL Cholesterol 32L, Cholesterol/ HDL Ratio 3.8, Vitamin B12 Level 1791H, Folate 41.0, Thyroid Stimulating Hormone (TSH) 3.204, Random Vancomycin Level 11.7 Height (Feet): 5 Height (Inches): 8.00 Weight (Pounds): 185 Objective General: alert, cooperative, no distress, appears stated age Head: normocephalic, without obvious abnormality, atraumatic Eyes: conjunctivae/corneas clear. PERRL, EOM's intact Throat: lips, mucosa, and tongue normal. MMM Neck: supple, symmetrical, trachea midline, and no JVD Lungs: clear to auscultation bilaterally Heart: regular rate and rhythm, S1, S2 normal, no murmur, click, rub or gallop Abdomen: soft, non-tender, non-distended, bowel sounds normal Extremities: extremities normal, atraumatic, no cyanosis, 1-2+ pitting edema BLE Pulses: 2+ and symmetric Skin: Left heel full-thickness ulceration which probes to bone, +erythema/edema/ warmth, +purulent drainage Right plantar midfoot with full-thickness ulceration measuring 1 cm in diameter with granular wound base.There is no erythema, drainage, fluctuance, or malodor Neurologic: grossly normal, no focal deficits Conner Orozco M.D. Oct 13, 2017 00:07
[2017-10-13] MEDS: oxyCODONE 5mg IR tab ORAL PRN ×3 (03:05→21:23)
[2017-10-13] MEDS: oxyCONTIN 10mg tab ORAL SCH ×3 (05:30→21:35)
[2017-10-13] MEDS: NovoLOG Insulin Flexpen SUBQ SCH ×4 (05:30→21:30)
--- NOTE | 2017-10-13 06:15 | Podiatric Progress Note ---
Assessment/Plan Patient Hank Nava is a 72 year old male who was admitted on Oct 11, 2017 at 15:22 with Problems: Assessment/Plan Discussed surgery with patient today. Risks and benefits discussed. He understands and wishes to proceed. Scheduled for today at 1PM Subjective Allergies: Coded Allergies: GABAPENTIN (Verified Allergy, Unknown, 10/11/17) OLIVE OIL (Verified Adverse Reaction, Severe, SPASM IN THE COLON, 01/18/14) PREGABALIN (Verified Adverse Reaction, Intermediate, "hypernervous", ) ACETAMINOPHEN (Verified Adverse Reaction, Mild, IRRITABILITY AND ELEVATED BLOOD PRESSURE, 01/18/14) IBUPROFEN (Verified Adverse Reaction, Mild, IRRITABILITY AND ELEVATED BLOOD PRESSURE, 01/18/14) Uncoded Allergies: SSRI (Allergy, Unknown, 10/11/17) Subjective Patient resting comfortably Objective Exam Last 24 Hour Vital Signs Date Time Temp Pulse Resp B/P (MAP) Pulse Ox O2 Delivery O2 Flow Rate FiO2 10/13/17 04:00 97.0 85 18 132/70 97 Room Air 97.0 10/12/17 21:30 97.0 89 17 135/60 95 Room Air 97.0 10/12/17 16:06 97.9 90 22 134/57 99 Room Air 97.9 10/12/17 12:00 97.7 98 20 164/73 95 97.7 10/12/17 09:34 83 115/61 10/12/17 08:00 96.5 83 20 102/57 98 96.5 Laboratory Tests Test 10/12/17 06:45 10/12/17 12:50 10/13/17 01:10 Urine Color Pale yellow Urine Appearance Turbid Urine pH 5 (4.5-8.0) Urine Specific [place] 1.010 (1.005-1.035) Urine Protein 2+ (NEGATIVE) H Urine Glucose (UA) Negative (NEGATIVE) Urine Ketones Negative (NEGATIVE) Urine Occult Blood 2+ (NEGATIVE) H Urine Nitrite Negative (NEGATIVE) Urine Bilirubin Negative (NEGATIVE) Urine Urobilinogen Normal MG/DL (0.0-1.0) Urine Leukocyte Esterase 3+ (NEGATIVE) H Urine RBC 2-4 /HPF (0 - 0) H Urine WBC Tntc /HPF (0 - 0) H Urine Squamous Epithelial Cells Few /LPF (NONE/OCC) Urine Bacteria Few /HPF (NONE) Urine Granular Casts 0-2 /LPF (NONE) H Urine Yeast Few /HPF (NONE) H Urine Eosinophils None seen Few seen Urine Random Sodium 29 MEQ/L (20-110) White Blood Count 15.6 K/UL (4.8-10.8) H Red Blood Count 4.24 M/UL (4.70-6.10) L Hemoglobin 10.8 G/DL (14.2-18.0) L Hematocrit 34.3 % (42.0-52.0) L Mean Corpuscular Volume 81 FL (80-99) Mean Corpuscular Hemoglobin 25.6 PG (27.0-31.0) L Mean Corpuscular Hemoglobin Concent 31.6 G/DL (32.0-36.0) L Red Cell Distribution Width 14.6 % (11.6-14.8) Platelet Count 511 K/UL (150-450) H Mean Platelet Volume 5.3 FL (6.5-10.1) L Neutrophils (%) (Auto) % (45.0-75.0) Lymphocytes (%) (Auto) % (20.0-45.0) Monocytes (%) (Auto) % (1.0-10.0) Eosinophils (%) (Auto) % (0.0-3.0) Basophils (%) (Auto) % (0.0-2.0) Differential Total Cells Counted 100 Neutrophils % (Manual) 88 % (45-75) H Lymphocytes % (Manual) 6 % (20-45) L Monocytes % (Manual) 5 % (1-10) Eosinophils % (Manual) 0 % (0-3) Basophils % (Manual) 0 % (0-2) Band Neutrophils 1 % (0-8) Platelet Estimate Increased H Platelet Morphology Normal Hypochromasia 2+ Sodium Level 132 MMOL/L (136-145) L Potassium Level 4.8 MMOL/L (3.5-5.1) Chloride Level 98 MMOL/L (98-107) Carbon Dioxide Level 23 MMOL/L (21-32) Anion Gap 12 mmol/L (5-15) Blood Urea Nitrogen 46 mg/dL (7-18) H Creatinine 2.0 MG/DL (0.55-1.30) H Estimat Glomerular Filtration Rate mL/min (>60) Glucose Level 171 MG/DL (74-106) H Hemoglobin A1c 9.9 % (4.3-6.0) H Uric Acid 10.5 MG/DL (2.6-7.2) H Calcium Level 8.9 MG/DL (8.5-10.1) Phosphorus Level 3.7 MG/DL (2.5-4.9) Magnesium Level 2.0 MG/DL (1.5-2.4) Iron Level 9 ug/dL (50-175) L Total Iron Binding Capacity 127 ug/dL (250-450) L Percent Iron Saturation 7 % (15-50) L Unsaturated Iron Binding 118 ug/dL (112-346) Ferritin 531 NG/ML (8-388) H Total Bilirubin 0.5 MG/DL (0.2-1.0) Gamma Glutamyl Transpeptidase 32 U/L (5-85) Aspartate Amino Transf (AST/SGOT) 25 U/L (15-37) Alanine Aminotransferase (ALT/SGPT) 41 U/L (12-78) Alkaline Phosphatase 106 U/L (46-116) Pro-B-Type Natriuretic Peptide 2306 pg/mL (0-125) H Total Protein 7.6 G/DL (6.4-8.2) Albumin 2.5 G/DL (3.4-5.0) L Globulin 5.1 g/dL Albumin/Globulin Ratio 0.5 (1.0-2.7) L Triglycerides Level 67 MG/DL (30-150) Cholesterol Level 122 MG/DL (< 200) LDL Cholesterol 85 mg/dL (<100) HDL Cholesterol 32 MG/DL (40-60) L Cholesterol/HDL Ratio 3.8 (3.3-4.4) Vitamin B12 Level 1791 PG/ML (193-986) H Folate 41.0 NG/ML (8.6-58.9) Thyroid Stimulating Hormone (TSH) 3.204 uiU/mL (0.358-3.740) Random Vancomycin Level 11.7 ug/mL Microbiology Date/Time Source Procedure Growth Status 10/11/17 17:00 Foot Left Gram Stain - Final Resulted 10/11/17 17:00 Wound Culture - Preliminary Gram Negative Bacillus 1 Resulted Raymundo Velasquez DPM Oct 13, 2017 06:15
[2017-10-13 07:12] LABS: BASOPHILS % (AUTO) 0.9 % (0.0-2.0); EOSINOPHILS % (AUTO) 1.7 % (0.0-3.0); HEMATOCRIT 31.8 % (42.0-52.0); HEMOGLOBIN 10.4 G/DL (14.2-18.0); LYMPHOCYTES % (AUTO) 10.3 % (20.0-45.0); MEAN CORPUSCULAR VOLUME 82 FL (80-99); MONOCYTES % (AUTO) 7.6 % (1.0-10.0); NEUTROPHILS % (AUTO) 79.5 % (45.0-75.0); PLATELET COUNT 464 K/UL (150-450); RED CELL DISTRIBUTION WIDTH 14.8 % (11.6-14.8); WHITE BLOOD COUNT 13.5 K/UL (4.8-10.8)
[2017-10-13 08:31] LABS: ANION GAP 10 mmol/L (5-15); BLOOD UREA NITROGEN 41 mg/dL (7-18); CALCIUM 8.8 MG/DL (8.5-10.1); CARBON DIOXIDE 21 MMOL/L (21-32); CHLORIDE 103 MMOL/L (98-107); CREATININE 1.8 MG/DL (0.55-1.30); POTASSIUM 5.1 MMOL/L (3.5-5.1); SODIUM 134 MMOL/L (136-145)
[2017-10-13] MEDS: Heparin 5000 units/ml inj SUBQ SCH ×2 (09:00→21:29)
--- NOTE | 2017-10-13 09:30 | Consultation ---
DATE OF CONSULTATION: 10/12/2017 INFECTIOUS DISEASE CONSULTATION CONSULTING PHYSICIAN: Faiza Mcdermott M.D. ATTENDING PHYSICIAN: Gaurav Lomeli M.D. REFERRING PHYSICIAN: Conner Orozco M.D. REASON FOR CONSULTATION: Left leg cellulitis, infected wound and ulcer of the left heel, possible sepsis, UTI, elevated white count, and fever. The patient's chief complaint coming in is left heel infected wound and ulcer and significant left leg cellulitis. HISTORY OF PRESENT ILLNESS: This is a 72-year-old male, who has history of chronic left heel ulcer and wound that is infected. The patient now has secondary left leg cellulitis. The patient had an elevated white count. MRI of the left ankle showed left calcaneus osteo. Wound cultures grew out gram-negative organisms. An Infectious Disease consultation was requested for antibiotic management. The patient was started on vancomycin, cefepime, and Flagyl. The patient has elevated creatinine also. MAR was noted. Orders were noted. Notes were reviewed. Case discussed with the patient at length. PAST MEDICAL HISTORY: The patient has a past medical history of chronic renal failure, elevated creatinine. The patient has history of diastolic heart failure with CHF, anemia, atherosclerotic cardiovascular disease. The patient has past medical history of diabetes, hypertension, and BPH. The patient has history of ulcer of left heel. The patient has history of Charcot foot. The patient has history of vertigo, dizziness, history of headaches, history of fatigue, and questionable history of osteo. MEDICATIONS: Upon reviewing the MAR, he is on the following medications, Flagyl, cefepime, vancomycin, docusate, Flomax, Norvasc, Proscar, vitamin D, vitamin B, oxycodone, heparin, Remeron, insulin, Dulcolax, acetaminophen, Zofran, and dextrose. Outside medications noted and reconciliated. ALLERGIES: Acetaminophen, gabapentin, ibuprofen, Elavil, pregabalin, and SSRIs. SOCIAL HISTORY: Negative for smoking, alcohol, or drug abuse. FAMILY HISTORY: Noncontributory. Negative for exposure to tuberculosis or cancer. REVIEW OF SYSTEMS: CONSTITUTIONAL: The patient has no Helms. No central line. He has generalized weakness and fatigue. No fever, chills, night sweats, or weight loss. HEAD AND NECK: No thrush. No dysphagia. No sinus tenderness. CARDIAC: No chest pain or palpitations. GASTROINTESTINAL: No nausea, vomiting, or diarrhea. GENITOURINARY: No CVA tenderness. Some dysuria and possible history of frequency. PULMONARY: No congestion, shortness of breath, hemoptysis, or secretions. SKIN: No rash or itching. EXTREMITIES: He has left leg pain and swelling. He has a Charcot joint of the right lower extremity. He has left wound and ulcer of left heel. NEUROLOGIC: No seizures. He has generalized weakness and fatigue. PHYSICAL EXAMINATION: GENERAL: Alert, responsive, no acute distress. VITAL SIGNS: Temperature is 97.0 degrees, pulse rate is 89, respiratory rate 17, blood pressure 135/60, and O2 saturation 95% on room air. HEAD AND NECK: Oral exam, no thrush. Eye exam, no icterus. Normocephalic. No facial droop. No neck stiffness. Neck is supple. No JVD. HEART: Regular. No rubs, gallop, or murmur. ABDOMEN: Soft. Positive bowel sounds. Nontender. LUNGS: Clear bilaterally. No rhonchi or rales. SKIN: No other rash. MUSCULOSKELETAL: No effusion. No evidence of septic arthritis. EXTREMITIES: Lower extremity exam, he has significant left leg cellulitis, warmth, and redness. He has left heel infected wound and ulcer. No gangrene that was noted in the digits GENITOURINARY: No CVA tenderness. LINES: Line sites are without phlebitis. NEUROLOGIC: He has generalized weakness and responsive. He is alert and oriented x3. LABORATORY AND DIAGNOSTIC DATA: UA had too many to count white blood cells and only few bacteria. Urine culture is pending. Creatinine was 2.4, now it is 2.0. White count was 16.4 on admission and now it is 15.6 and hemoglobin 10.8. Cultures, urine culture pending. Wound culture, left foot and heel is gram-negative. MRI of the left ankle showed osteo of the left calcaneus that was progressive osteomyelitis, report was noted. ASSESSMENT AND PLAN: 1. The patient has [id number] cellulitis of left lower extremity and has a left heel, foot infected wound and ulcer. 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 The patient's wound cultures grew gram-negative organisms. The patient has possible sepsis, elevated white count. The patient has low-grade fever. The patient has urinary tract infection. At this time, continue treatment with vancomycin, cefepime, and Flagyl for methicillin-resistant Staphylococcus aureus gram-negative polymicrobial coverage. Check wound culture. The patient will possibly need 6 weeks of IV antibiotics through a PICC line. Await Podiatry followup for further evaluation for possible debridement versus other intervention. Continue antibiotics, vancomycin, cefepime, and Flagyl. Watch creatinine closely. Watch white cell count. Check urine culture also. Continue wound care per protocol. 2. Elevated creatinine, chronic renal failure, acute kidney injury. 3. Anemia. 4. The patient with history of diabetes. 5. Hypertension. 6. Blood sugar and blood pressure treatment per primary. 7. Benign prostatic hypertrophy. 8. Atherosclerotic cardiovascular disease. 9. Chronic diastolic congestive heart failure. 10. Anemia. 11. Dizziness, headaches, weakness, and fatigue. 12. Allergies, acetaminophen, gabapentin, ibuprofen, Elavil, pregabalin, and selective serotonin reuptake inhibitors. 13. Social history negative. 14. Family history noncontributory. 15. MAR was noted. 16. Case discussed with RN. 17. Continue treatment per primary consultants. 18. Orders were entered. 19. Notes and records noted. Faiza Mcdermott M.D. DR: ZOË JOB#: [id number] CC:
[2017-10-13] MEDS: Vitamin D 400 INTLU TAB ORAL SCH (09:33)
[2017-10-13] MEDS: Tamsulosin 0.4mg cap ORAL SCH ×2 (09:34→18:00)
[2017-10-13] MEDS: Nephrovite tab (Rena-Vite) ORAL SCH (09:34)
[2017-10-13] MEDS: Docusate 100mg cap ORAL SCH ×3 (09:34→18:00)
--- NOTE | 2017-10-13 11:23 | Anethesia Preoperative Eval ---
Anesthesia Pre-op PMH/ROS General Date of Evaluation: Oct 13, 2017 Time of Evaluation: 11:18 Anesthesiologist: Angelia ASA Score: ASA 3 Mallampati Score Class I : Soft palate, uvula, fauces, pillars visible Class II: Soft palate, uvula, fauces visible Class III: Soft palate, base of uvula visible Class IV: Only hard plate visible Mallampati Classification: Class III Surgeon: Bria Diagnosis: L foot osteomyelitis Surgical Procedure: Debridement of L foot wound Anesthesia History: none Family History: no anesthesia problems Allergies: Coded Allergies: GABAPENTIN (Verified Allergy, Unknown, 10/11/17) OLIVE OIL (Verified Adverse Reaction, Severe, SPASM IN THE COLON, 01/18/14) PREGABALIN (Verified Adverse Reaction, Intermediate, "hypernervous", ) ACETAMINOPHEN (Verified Adverse Reaction, Mild, IRRITABILITY AND ELEVATED BLOOD PRESSURE, 01/18/14) IBUPROFEN (Verified Adverse Reaction, Mild, IRRITABILITY AND ELEVATED BLOOD PRESSURE, 01/18/14) Uncoded Allergies: SSRI (Allergy, Unknown, 10/11/17) Past Medical History Cardiovascular: Reports: HTN, other - h/o CHF, Denies: CAD, [place], valve dz, arrhythmia Pulmonary: Reports: ELISA, Denies: asthma, COPD, other Gastrointestinal/Genitourinary: Reports: GERD, CRI, Denies: ESRD, other Neurologic/Psychiatric: Reports: depression/anxiety, Denies: dementia, CVA, TIA, other Endocrine: Reports: DM - poorly controled, Denies: hypothyroidism, steroids, other HEENT: Reports: cataract (L), cataract (R) - s/p Sx Hematology/Immune: Reports: anemia, Denies: DVT, bleeding disorder, other Musculoskeletal/Integumentary: Reports: DJD, other - L leg cellulitis, Denies: OA, RA, DDD, edema Other: other - overweight PMH Narrative: as above PSxH Narrative: T&A bilateral cataract L hip replacement, back Sx Anesthesia Pre-op Phys. Exam Physician Exam Last Vital Signs Date Time Temp Pulse Resp B/P (MAP) Pulse Ox O2 Delivery O2 Flow Rate FiO2 10/13/17 09:34 85 132/70 10/13/17 09:00 97.5 19 96 Room Air 97.5 Constitutional: NAD Neurologic: CN 2-12 intact Cardiovascular: RRR, no M/R/G Respiratory: CTA Gastrointestinal: S/NT/ND Airway Exam Mallampati Score: Class III MO: limited Neck: stiff short ROM: limited Teeth: missing, broken Dentures: no upper, no lower Anesthesia Pre-op A/P Labs Hematology Test 10/12/17 12:50 10/13/17 05:10 White Blood Count 15.6 K/UL (4.8-10.8) H 13.5 K/UL (4.8-10.8) H Red Blood Count 4.24 M/UL (4.70-6.10) L 3.90 M/UL (4.70-6.10) L Hemoglobin 10.8 G/DL (14.2-18.0) L 10.4 G/DL (14.2-18.0) L Hematocrit 34.3 % (42.0-52.0) L 31.8 % (42.0-52.0) L Mean Corpuscular Volume 81 FL (80-99) 82 FL (80-99) Mean Corpuscular Hemoglobin 25.6 PG (27.0-31.0) L 26.6 PG (27.0-31.0) L Mean Corpuscular Hemoglobin Concent 31.6 G/DL (32.0-36.0) L 32.5 G/DL (32.0-36.0) Red Cell Distribution Width 14.6 % (11.6-14.8) 14.8 % (11.6-14.8) Platelet Count 511 K/UL (150-450) H 464 K/UL (150-450) H Mean Platelet Volume 5.3 FL (6.5-10.1) L 4.8 FL (6.5-10.1) L Neutrophils (%) (Auto) % (45.0-75.0) 79.5 % (45.0-75.0) H Lymphocytes (%) (Auto) % (20.0-45.0) 10.3 % (20.0-45.0) L Monocytes (%) (Auto) % (1.0-10.0) 7.6 % (1.0-10.0) Eosinophils (%) (Auto) % (0.0-3.0) 1.7 % (0.0-3.0) Basophils (%) (Auto) % (0.0-2.0) 0.9 % (0.0-2.0) Differential Total Cells Counted 100 Neutrophils % (Manual) 88 % (45-75) H Lymphocytes % (Manual) 6 % (20-45) L Monocytes % (Manual) 5 % (1-10) Eosinophils % (Manual) 0 % (0-3) Basophils % (Manual) 0 % (0-2) Band Neutrophils 1 % (0-8) Platelet Estimate Increased H Platelet Morphology Normal Hypochromasia 2+ Chemistry Test 10/12/17 12:50 10/13/17 05:10 Sodium Level 132 MMOL/L (136-145) L 134 MMOL/L (136-145) L Potassium Level 4.8 MMOL/L (3.5-5.1) 5.1 MMOL/L (3.5-5.1) Chloride Level 98 MMOL/L (98-107) 103 MMOL/L (98-107) Carbon Dioxide Level 23 MMOL/L (21-32) 21 MMOL/L (21-32) Anion Gap 12 mmol/L (5-15) 10 mmol/L (5-15) Blood Urea Nitrogen 46 mg/dL (7-18) H 41 mg/dL (7-18) H Creatinine 2.0 MG/DL (0.55-1.30) H 1.8 MG/DL (0.55-1.30) H Estimat Glomerular Filtration Rate mL/min (>60) mL/min (>60) Glucose Level 171 MG/DL (74-106) H 135 MG/DL (74-106) H Hemoglobin A1c 9.9 % (4.3-6.0) H Uric Acid 10.5 MG/DL (2.6-7.2) H Calcium Level 8.9 MG/DL (8.5-10.1) 8.8 MG/DL (8.5-10.1) Phosphorus Level 3.7 MG/DL (2.5-4.9) Magnesium Level 2.0 MG/DL (1.5-2.4) Iron Level 9 ug/dL (50-175) L Total Iron Binding Capacity 127 ug/dL (250-450) L Percent Iron Saturation 7 % (15-50) L Unsaturated Iron Binding 118 ug/dL (112-346) Ferritin 531 NG/ML (8-388) H Total Bilirubin 0.5 MG/DL (0.2-1.0) Gamma Glutamyl Transpeptidase 32 U/L (5-85) Aspartate Amino Transf (AST/SGOT) 25 U/L (15-37) Alanine Aminotransferase (ALT/SGPT) 41 U/L (12-78) Alkaline Phosphatase 106 U/L (46-116) Pro-B-Type Natriuretic Peptide 2306 pg/mL (0-125) H Total Protein 7.6 G/DL (6.4-8.2) Albumin 2.5 G/DL (3.4-5.0) L Globulin 5.1 g/dL Albumin/Globulin Ratio 0.5 (1.0-2.7) L Triglycerides Level 67 MG/DL (30-150) Cholesterol Level 122 MG/DL (< 200) LDL Cholesterol 85 mg/dL (<100) HDL Cholesterol 32 MG/DL (40-60) L Cholesterol/HDL Ratio 3.8 (3.3-4.4) Vitamin B12 Level 1791 PG/ML (193-986) H Folate 41.0 NG/ML (8.6-58.9) Thyroid Stimulating Hormone (TSH) 3.204 uiU/mL (0.358-3.740) Studies Pre-op Studies: EKG - SR Risk Assessment & Plan Assessment: ASA 3 Plan: GA with ETT prone position Status Change Before Surgery: No Pre-Antibiotics Drug: as scheduled RACHEL RAMOS M.D. Oct 13, 2017 11:23
--- NOTE | 2017-10-13 11:32 | Diagnostic Imaging Report ---
Indication: Shortness of breath Technique: One view of the chest Comparison: 01/29/2016 Findings: There is right basilar atelectasis and some elevation of right hemidiaphragm. The lungs and pleural spaces are otherwise clear. The heart size is normal. Impression: Bibasilar atelectasis and elevation of the right hemidiaphragm. No acute process otherwise.
--- NOTE | 2017-10-13 11:43 | Diagnostic Imaging Report ---
Indication: Foot pain, abnormal recent MRI Technique: 3 views left foot Comparison: No comparison radiographs. Reference made to MRI of the left hindfoot of 10/12/2017 Findings: A few small gas bubbles are seen adjacent within the soft tissues to the calcaneal tuberosity and adjacent to the inferior aspect of the calcaneus. There is lucency of the subcortical calcaneus with one more breaks in the cortex, presumably related to the osteomyelitis demonstrated on recent MRI. There is a plantar surface ulcer. There are vascular calcifications. No acute fractures. No dislocations. A small osseous fragment superior to the calcaneal tuberosity likely reflects a small avulsed fragment off of the calcaneal tuberosity related to the Achilles tendon rupture described on recent MRI Impression: No acute bony trauma Gas within the soft tissues, also described on recent MRI. May be due to penetrating ulcer, versus infection by gas-forming organism Subcortical lucency of the calcaneal tuberosity, presumably related to osteomyelitis changes described on recent MRI Possible avulsed bony fragment off of the calcaneal tuberosity, likely related to Achilles tendon rupture described on recent MRI
[2017-10-13] MEDS ORDERED: Bupivacaine 0.25% Inj 30ml INJ ONE (12:39)
[2017-10-13] MEDS ORDERED: Lidocaine 1% 10mg/ml/Epi 0.005mg/ml 30ml vial INJ ONE (12:39)
[2017-10-13] MEDS ORDERED: Propofol 200mg/20ml IV ONE (12:39)
[2017-10-13] MEDS ORDERED: Bacitracin 50000 Units Vial ONE (12:59)
[2017-10-13] MEDS ORDERED: NeoSporin Gu Irrig 1ml Amp IRRIG ONE (12:59)
[2017-10-13] MEDS ORDERED: NS Irrig 1000ml ONE (13:00)
[2017-10-13] MEDS ORDERED: Glycopyrrolate 0.2mg/ml 1ml Vial ONE (13:00)
[2017-10-13] MEDS ORDERED: Sterile Water Irrig 1000ml IRRIG ONE (13:00)
[2017-10-13] MEDS ORDERED: Zemuron 50mg/5ml Inj IV ONE (13:00)
[2017-10-13] MEDS ORDERED: Midazolam 2mg/2ml Inj ONE (13:00)
[2017-10-13] MEDS ORDERED: fentaNYL 100 mcg/2 mL IV ONE (13:00)
[2017-10-13] MEDS ORDERED: Neostigmine 1mg/ml 10ml Inj ONE (13:00)
--- NOTE | 2017-10-13 13:14 | Pre-Procedure Note/Attestation ---
Pre-Procedure Note/Attestation Complete Prior to Procedure Planned Procedure: left Procedure Narrative: Incision and drainage and debridement of left foot Indications for Procedure Pre-Operative Diagnosis: 1) Cellulitis abscess left lower extremity 2) Chronic diabetic ulcer left heel with osteomyelitis 3) DM with Diabetic Neuropathy 4) Chronic diabetic ulcer right foot 5) Charcot deformity right foot 6) Obesity 7) Difficulty walking Attestation I attest that I discussed the nature of the procedure; its benefits; risks and complications; and alternatives (and the risks and benefits of such alternatives ), prior to the procedure, with the patient (or the patient's legal business representative). I attest that, if there was a reasonable possibility of needing a blood transfusion, the patient (or the patient's legal business representative) was given the [place] [employer] standardized written summary, pursuant to the [place] Blood Safety Act ([place] Health and Safety Code # 1645, as amended). I attest that I re-evaluated the patient just prior to the surgery and that there has been no change in the patient's H&P, except as documented below: Raymundo Velasquez DPM Oct 13, 2017 13:14
[2017-10-13] MEDS ORDERED: Dakin's 0.25% (Half Strength) 16oz TOPIC ONE (13:35)
[2017-10-13] MEDS: Dakin's 0.125% Soln (Quarter Strength) 16oz TOPIC SCH (14:10)
[2017-10-13] MEDS ORDERED: Hydromorphone 0.5mg/0.5ml inj IVP PRN (14:15)
[2017-10-13] MEDS ORDERED: Midazolam 2mg/2ml Inj IVP PRN (14:15)
[2017-10-13] MEDS ORDERED: DiphenhydrAMINE 50mg/ml Inj IVP PRN (14:15)
--- NOTE | 2017-10-13 14:44 | Brief Operative Note ---
Immediate Post Operative Note Operative Note Pre-op Diagnosis: 1) Cellulitis abscess left lower extremity 2) Chronic diabetic ulcer left heel with osteomyelitis 3) DM with Diabetic Neuropathy 4) Chronic diabetic ulcer right foot 5) Charcot deformity right foot 6) Obesity 7) Difficulty walking Procedure: 1) Incision and drainage left foot 2) Excisional debridement to the level of muscle left foot 3) Partial calcanectomy left foot Post-op Diagnosis: same as pre-op Surgeon: Raymundo Velasquez DPM Anesthesiologist: Dr Galan Anesthesia: general Specimen: yes - tissue and bone for path, bone for culture Complications: none Condition: stable Fluids: Per anesthesia Estimated Blood Loss: minimal - 15 Drains: none Packing: yes Implant(s) used?: No Raymundo Velasquez DPM Oct 13, 2017 14:44
--- NOTE | 2017-10-13 15:00 | Immediate Post-Op Evaluation ---
Immediate Post-Op Evalulation Immediate Post-Op Evalulation Procedure: L foot debiement of chronic wound Date of Evaluation: Oct 13, 2017 Time of Evaluation: 14:59 IV Fluids: 1000 Blood Products: none Estimated Blood Loss: 50 Urinary Output: none Blood Pressure Systolic: 142 Blood Pressure Diastolic: 74 Pulse Rate: 78 Respiratory Rate: 22 O2 Sat by Pulse Oximetry: 99 Temperature (Fahrenheit): 97.6 Pain Score (1-10): 2 Nausea: No Vomiting: No Complications none Patient Status: reacts, patent, extubated, none Hydration Status: adequate RACHEL RAMOS M.D. Oct 13, 2017 15:00
--- NOTE | 2017-10-13 15:04 | Cardiology Report ---
APPROVED REPORT EXAM: Two-dimensional and M-mode echocardiogram with Doppler and color Doppler. INDICATION Congestive Heart Failure M-Mode DIMENSIONS IVSd1.3 (0.7-1.1cm)Left Atrium (MM)3.7 (1.6-4.0cm) LVDd6.0 (3.5-5.6cm)Aortic Root3.0 (2.0-3.7cm) PWd1.0 (0.7-1.1cm)Aortic Cusp Exc.2.0 (1.5-2.0cm) LVDs3.9 (2.5-4.0cm) PWs1.3 cm Normal left ventricular chamber size, systolic function and wall motion. Apical septal hypokinesis. Left ventricular ejection fraction estimated to be 55-60%. No evidence of left ventricular hypertrophy. No evidence of pericardial or pleural effusion. Right cardiac chamber sizes are within normal limits. Mild left atrial enlargement by 2D. Focal aortic valve sclerosis with adequate cusp excursion. Thickened mitral valve leaflets with normal excursion. Mild mitral annulus and aortic root calcification. Pulmonic valve is well visualized. Normal tricuspid valve structure. IVC is not obtainable. A color flow and spectral Doppler study was performed and revealed: No aortic regurgitation. Trace mitral regurgitation. Mitral diastolic velocities suggest reduced left ventricular relaxation c/w diastolic dysfunction grade 1. No tricuspid regurgitation.
--- NOTE | 2017-10-13 15:36 | General Progress Note ---
Assessment/Plan Problem List: (1) Gram-negative bacteremia ICD Codes: R78.81 - Bacteremia SNOMED: 156716153775 (2) Sepsis ICD Codes: A41.9 - Sepsis, unspecified organism SNOMED: 44823118 (3) Progressive osteomyelitis of the posterior calcaneus (4) Cellulitis of left lower extremity ICD Codes: L03.116 - Cellulitis of left lower limb SNOMED: 285199430 (5) L heel diabetic ulcer with concern for osteomyelitis (6) Complete tear with retraction of the calcaneal tendon (7) MISHEL on CKD (8) CKD stage 3 (9) DM2 (diabetes mellitus, type 2) Assessment & Plan: A1C 9.9 ICD Codes: E11.9 - Type 2 diabetes mellitus without complications SNOMED: 26985904 (10) HTN (hypertension) ICD Codes: I10 - Essential (primary) hypertension SNOMED: 42684849 (11) Diabetic neuropathy ICD Codes: E11.40 - Type 2 diabetes mellitus with diabetic neuropathy, unspecified SNOMED: 65012200, 635135308, 643791327 (12) Diabetic nephropathy ICD Codes: E11.21 - Type 2 diabetes mellitus with diabetic nephropathy SNOMED: 43800751, 379878999 Qualifiers: Qualified Codes: E11.21 - Type 2 diabetes mellitus with diabetic nephropathy (13) Hyponatremia ICD Codes: E87.1 - Hypo-osmolality and hyponatremia SNOMED: 42630002 (14) Chronic diabetic ulcer right foot Status: stable Assessment/Plan Podiatry, ID, renal consulted Empiric vanco, cefepime and flagyl per ID (10/11-) F/u cultures--blood culture showing GNR, wound culture showing Klebsiella pneumonia Repeat blood cultures in AM Will need PICC line once repeat blood cultures neg Wound care per podiatry Check MRI L foot--shows progressive osteomyelitis, heel ulceration, soft tissue gas, complete tear of Achilles tendon s/p incision and drainage left foot, excisional debridement to the level of muscle left foot, and partial calcanectomy left foot on 10/13/17 IVFs given MISHEL Avoid nephrotoxins Check renal U/S--shows bladder volume 337mL, pt able to void Check TTE--EF 55-60% Pain control, bowel regimen Supportive care Cont SNF meds but hold lasix, MTF for now ZENIA DVT Prophylaxis: HSQ Code Status: Full Hospital Classification Declaration: Based on this initial evaluation, and depending on the patient's clinical course, I anticipate that this patient will require hospitalization for 2-3 days for LLE cellulitis, L heel diabetic ulcer w / concern for osteo, and close respiratory/hemodynamic monitoring. Disposition: Once the patient is stable to leave the hospital, I anticipate the patient will likely be discharged to the following environment: back to SNF Discussed with patient/family, nursing staff, SW/CM, podiatry, ID regarding clinical status, treatment course, and disposition planning. D/w ID re abx. D/w podiatry re surgery Time of note may not reflect time of encounter Subjective Date patient seen: Oct 13, 2017 Time patient seen: 15:36 ROS Limited/Unobtainable: No Constitutional: Reports: chills, malaise, weakness HEENT: Reports: no symptoms Cardiovascular: Reports: no symptoms Respiratory: Reports: no symptoms Gastrointestinal/Abdominal: Reports: no symptoms Genitourinary: Reports: no symptoms Neurologic/Psychiatric: Reports: no symptoms Endocrine: Reports: no symptoms Hematologic/Lymphatic: Reports: no symptoms Allergies: Coded Allergies: GABAPENTIN (Verified Allergy, Unknown, 10/11/17) OLIVE OIL (Verified Adverse Reaction, Severe, SPASM IN THE COLON, 01/18/14) PREGABALIN (Verified Adverse Reaction, Intermediate, "hypernervous", ) ACETAMINOPHEN (Verified Adverse Reaction, Mild, IRRITABILITY AND ELEVATED BLOOD PRESSURE, 01/18/14) IBUPROFEN (Verified Adverse Reaction, Mild, IRRITABILITY AND ELEVATED BLOOD PRESSURE, 01/18/14) Uncoded Allergies: SSRI (Allergy, Unknown, 10/11/17) All Systems: reviewed and negative except above Subjective No acute o/n events MRI L foot shows progressive osteomyelitis, heel ulcer, soft tissue gas, complete tear of Achilles tendon s/p incision and drainage left foot, excisional debridement to the level of muscle left foot, and partial calcanectomy left foot today Blood cultures growing GNR Pt c/o foot pain. Lethargic, some chills. Denies n/v, d/c, chest pain, SOB, abd pain Objective Last 24 Hour Vital Signs Date Time Temp Pulse Resp B/P (MAP) Pulse Ox O2 Delivery O2 Flow Rate FiO2 10/13/17 15:25 97.8 72 15 123/58 100 Nasal Cannula 3.0 97.8 10/13/17 15:10 71 16 129/56 100 Nasal Cannula 3.0 10/13/17 15:05 66 14 126/50 100 Nasal Cannula 3.0 10/13/17 15:00 207.7 78 22 99 10/13/17 14:55 71 18 123/44 100 Nasal Cannula 3.0 10/13/17 14:50 68 14 113/85 100 Simple Mask 6.0 10/13/17 14:45 98.0 62 12 141/42 100 Simple Mask 6.0 98.0 10/13/17 09:34 85 132/70 10/13/17 09:00 97.5 81 19 140/71 96 Room Air 97.5 10/13/17 04:00 97.0 85 18 132/70 97 Room Air 97.0 10/12/17 21:30 97.0 89 17 135/60 95 Room Air 97.0 10/12/17 16:06 97.9 90 22 134/57 99 Room Air 97.9 Intake and Output 10/12/17 10/13/17 19:00 07:00 Intake Total 900 ml 685 ml Output Total 400 ml 700 ml Balance 500 ml -15 ml IV Total 900 ml 685 ml Output Urine Total 400 ml 700 ml # Voids 1 Laboratory Tests 10/13/17 01:10: Urine Eosinophils Few seen 10/13/17 05:10: White Blood Count 13.5H, Red Blood Count 3.90L, Hemoglobin 10.4L, Hematocrit 31.8L, Mean Corpuscular Volume 82, Mean Corpuscular Hemoglobin 26.6L, Mean Corpuscular Hemoglobin Concent 32.5, Red Cell Distribution Width 14.8, Platelet Count 464H, Mean Platelet Volume 4.8L, Neutrophils (%) (Auto) 79.5H, Lymphocytes (%) (Auto) 10.3L, Monocytes (%) (Auto) 7.6, Eosinophils (%) (Auto) 1.7, Basophils (%) (Auto) 0.9, Sodium Level 134L, Potassium Level 5.1, Chloride Level 103, Carbon Dioxide Level 21, Anion Gap 10, Blood Urea Nitrogen 41H, Creatinine 1.8H, Estimat Glomerular Filtration Rate , Glucose Level 135H, Calcium Level 8.8 Height (Feet): 5 Height (Inches): 8.00 Weight (Pounds): 185 Objective General: alert, cooperative, no distress, appears stated age Head: normocephalic, without obvious abnormality, atraumatic Eyes: conjunctivae/corneas clear. PERRL, EOM's intact Throat: lips, mucosa, and tongue normal. MMM Neck: supple, symmetrical, trachea midline, and no JVD Lungs: clear to auscultation bilaterally Heart: regular rate and rhythm, S1, S2 normal, no murmur, click, rub or gallop Abdomen: soft, non-tender, non-distended, bowel sounds normal Extremities: extremities normal, atraumatic, no cyanosis, 1-2+ pitting edema BLE Pulses: 2+ and symmetric Skin: Left heel full-thickness ulceration which probes to bone, +erythema/edema/ warmth, +purulent drainage Right plantar midfoot with full-thickness ulceration measuring 1 cm in diameter with granular wound base.There is no erythema, drainage, fluctuance, or malodor Neurologic: grossly normal, no focal deficits Conner Orozco M.D. Oct 13, 2017 15:36
--- NOTE | 2017-10-13 17:00 | Nephrology Progress Note ---
Assessment/Plan Problem List: (1) HTN (hypertension) (2) Diabetes mellitus (3) Ulcer of left heel (4) Renal insufficiency Assessment Foot ulcer, left left leg cellulitis, left heel ulcer, ? osteo, leukocytosis, lgt Renal insufficiency acute vs chronic Anemia UTI Plan today's labs pending Kidney FAMILIA Unremarkable kidneys. Negative for hydronephrosis Note inability of the patient to void with a bladder volume of 337 mL 2D echo :Left ventricular ejection fraction estimated to be 55-60%. No evidence of left ventricular hypertrophy. Avoid Nephrotoxics Keep BP in check monitor renal parameters Anemia henry urine studies Subjective ROS Limited/Unobtainable: No Constitutional: Reports: malaise Objective Objective Last 24 Hour Vital Signs Date Time Temp Pulse Resp B/P (MAP) Pulse Ox O2 Delivery O2 Flow Rate FiO2 10/13/17 15:25 97.8 72 15 123/58 100 Nasal Cannula 3.0 97.8 10/13/17 15:10 71 16 129/56 100 Nasal Cannula 3.0 10/13/17 15:05 66 14 126/50 100 Nasal Cannula 3.0 10/13/17 15:00 207.7 78 22 99 10/13/17 14:55 71 18 123/44 100 Nasal Cannula 3.0 10/13/17 14:50 68 14 113/85 100 Simple Mask 6.0 10/13/17 14:45 98.0 62 12 141/42 100 Simple Mask 6.0 98.0 10/13/17 09:34 85 132/70 10/13/17 09:00 97.5 81 19 140/71 96 Room Air 97.5 10/13/17 04:00 97.0 85 18 132/70 97 Room Air 97.0 10/12/17 21:30 97.0 89 17 135/60 95 Room Air 97.0 Intake and Output 10/12/17 10/13/17 19:00 07:00 Intake Total 900 ml 685 ml Output Total 400 ml 700 ml Balance 500 ml -15 ml IV Total 900 ml 685 ml Output Urine Total 400 ml 700 ml # Voids 1 Laboratory Tests 10/13/17 01:10: Urine Eosinophils Few seen 10/13/17 05:10: White Blood Count 13.5H, Red Blood Count 3.90L, Hemoglobin 10.4L, Hematocrit 31.8L, Mean Corpuscular Volume 82, Mean Corpuscular Hemoglobin 26.6L, Mean Corpuscular Hemoglobin Concent 32.5, Red Cell Distribution Width 14.8, Platelet Count 464H, Mean Platelet Volume 4.8L, Neutrophils (%) (Auto) 79.5H, Lymphocytes (%) (Auto) 10.3L, Monocytes (%) (Auto) 7.6, Eosinophils (%) (Auto) 1.7, Basophils (%) (Auto) 0.9, Sodium Level 134L, Potassium Level 5.1, Chloride Level 103, Carbon Dioxide Level 21, Anion Gap 10, Blood Urea Nitrogen 41H, Creatinine 1.8H, Estimat Glomerular Filtration Rate , Glucose Level 135H, Calcium Level 8.8 10/13/17 15:45: Random Vancomycin Level [Pending] Height (Feet): 5 Height (Inches): 8.00 Weight (Pounds): 185 General Appearance: no apparent distress Cardiovascular: normal rate Respiratory/Chest: decreased breath sounds Abdomen: soft, distended Extremities: other - swollen IHSAN REGALADO Oct 13, 2017 17:00
[2017-10-13] MEDS: Vancomycin 1250mg/D5W 250ml IVPB SCH (18:45)
[2017-10-13] MEDS: Cefepime HCl 2 GM in NS 110 ML IV SCH (22:37)
--- NOTE | 2017-10-13 22:45 | Consultation ---
DATE OF CONSULTATION: 10/11/2017 CONSULTING PHYSICIAN: Raymundo Velasquez D.P.M. REQUESTING PHYSICIAN: Dr. Prieto. REASON FOR CONSULTATION: Advancing infection in left heel, history of osteomyelitis. HISTORY OF PRESENT ILLNESS: The patient is a 72-year-old male who is known to our service for chronic wounds on the right foot. The patient was hospitalized for spinal surgery in the mid 2016 months and was admitted to [facility] where he subsequently developed a diabetic ulcer of the left heel. He was subsequently discharged from that admission and as an outpatient was seen at the wound center by myself when seen for the left heel wound. During his outpatient wound care visits, he was referred for an MRI which showed osteomyelitis of the left calcaneus. Upon discussion with Infectious Disease, it was decided to send the patient for admission at [facility] in July 2017. Prior to the admission during his outpatient visits, debridement was performed after the MRI as well as during his admission during [facility]. He was subsequently discharged on IV antibiotics consisting of vancomycin and ceftriaxone via his PICC line and admission to [facility] for continued care and wound VAC and dressing changes. The patient was being followed weekly at the [facility] and during the last rounds this week, it was noted that the wound had become acutely infected. The patient was then transferred here to [place] for subsequent care and further workup of his left heel infection. PAST MEDICAL HISTORY: Significant for anemia, attention-deficit disorder, B12 deficiency, back pain, history of multiple back surgeries, benign prostatic hypertrophy, history of cellulitis, Charcot of the right foot, congestive heart failure, chronic pain syndrome, constipation, diabetes mellitus with diabetic neuropathy, hyperlipidemia, ischemic cardiomyopathy, obesity, osteoarthritis, and spinal stenosis. ALLERGIES: The patient is allergic to acetaminophen, gabapentin, ibuprofen, and SSRIs. MEDICATIONS: Per MAR. FAMILY HISTORY: Noncontributory. SOCIAL HISTORY: Noncontributory. REVIEW OF SYSTEMS: HEENT: The patient denies any headaches, blurred vision, or ringing in the ears. CARDIOVASCULAR: The patient denies any chest pain or shortness of breath. GENITOURINARY: The patient denies any urgency, frequency, burning upon urination, or hematuria. GASTROINTESTINAL: The patient denies any constipation, diarrhea, or blood in the stool. PHYSICAL EXAMINATION: VITAL SIGNS: Temperature 99.0, pulse is 83, respirations 20, blood pressure is 133/61, and saturating 96% on room air. EXTREMITIES: Lower extremity physical exam, vascular, palpable pedal pulses noted bilaterally. Left foot is warmer than the right. There is edema noted bilaterally, left worse than right. No cyanosis is noted. DERMATOLOGICAL: Right foot ulceration on the plantar aspect is healed. Left heel wound is necrotic and mobilized. There is discharge noted from the site. There is mild malodor from the site. Erythema is noted that extends from the wound site to the mid posterior calf. No other ulcers or lesions are noted. NEUROLOGICAL: Protective threshold is absent. MUSCULOSKELETAL: No gross deformities are noted. LABORATORY DATA: White blood cell count 16.4, hemoglobin and hematocrit is 11.7 and 35.4, and platelet count is 513,000. Glucose is 253, creatinine is 2.4, BUN is 49, potassium is 5.0, albumin is 2.7. No imaging is noted for this admission. ASSESSMENT: 1. Cellulitis, left lower extremity. 2. 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 3. Diabetes with diabetic neuropathy. 4. Chronic diabetic ulcer of the right foot, resolved. 5. Charcot deformity, right foot. 6. Obesity. 7. Difficulty walking. PLAN: 1. MRI of the left ankle will be ordered to evaluate the status of his osteomyelitis. 2. Wound care orders were placed. 3. Recommend infectious disease consult. 4. We will follow. Thank you for the courtesy of this consultation. Raymundo Velasquez D.P.M. DR: Antionette JOB#: [id number] CC:
--- NOTE | 2017-10-13 23:15 | Consultation ---
DATE OF CONSULTATION: 10/11/2017 CONSULTING PHYSICIAN: Raymundo Velasquez D.P.M. REQUESTING PHYSICIAN: Dr. Prieto. REASON FOR CONSULTATION: Advancing infection in left heel, history of osteomyelitis. HISTORY OF PRESENT ILLNESS: The patient is a 72-year-old male who is known to our service for chronic wounds on the right foot. The patient was hospitalized for spinal surgery in the mid 2016 months and was admitted to [facility] where he subsequently developed a diabetic ulcer of the left heel. He was subsequently discharged from that admission and as an outpatient was seen at the wound center by myself when seen for the left heel wound. During his outpatient wound care visits, he was referred for an MRI which showed osteomyelitis of the left calcaneus. Upon discussion with Infectious Disease, it was decided to send the patient for admission at [facility] in July 2017. Prior to the admission during his outpatient visits, debridement was performed after the MRI as well as during his admission during [facility]. He was subsequently discharged on IV antibiotics consisting of vancomycin and ceftriaxone via his PICC line and admission to [facility] for continued care and wound VAC and dressing changes. The patient was being followed weekly at the [facility] and during the last rounds this week, it was noted that the wound had become acutely infected. The patient was then transferred here to [place] for subsequent care and further workup of his left heel infection. PAST MEDICAL HISTORY: Significant for anemia, attention-deficit disorder, B12 deficiency, back pain, history of multiple back surgeries, benign prostatic hypertrophy, history of cellulitis, Charcot of the right foot, congestive heart failure, chronic pain syndrome, constipation, diabetes mellitus with diabetic neuropathy, hyperlipidemia, ischemic cardiomyopathy, obesity, osteoarthritis, and spinal stenosis. ALLERGIES: The patient is allergic to acetaminophen, gabapentin, ibuprofen, and SSRIs. MEDICATIONS: Per MAR. FAMILY HISTORY: Noncontributory. SOCIAL HISTORY: Noncontributory. REVIEW OF SYSTEMS: HEENT: The patient denies any headaches, blurred vision, or ringing in the ears. CARDIORESPIRATORY: The patient denies any chest pain or shortness of breath. GENITOURINARY: The patient denies any urgency, frequency, burning upon urination, or hematuria. GASTROINTESTINAL: The patient denies any constipation, diarrhea, or blood in the stool. PHYSICAL EXAMINATION: VITAL SIGNS: Temperature 99.0, pulse is 83, respirations 20, blood pressure is 133/61, and saturating 96% on room air. EXTREMITIES: Lower extremity physical exam, vascular, palpable pedal pulses noted bilaterally. Left foot is warmer than the right. There is edema noted bilaterally, left worse than right. No cyanosis is noted. DERMATOLOGICAL: Right foot ulceration on the plantar aspect is healed. Left heel wound is necrotic and mobilized. There is discharge noted from the site. There is mild malodor from the site. Erythema is noted that extends from the wound site to the mid posterior calf. No other ulcers or lesions are noted. NEUROLOGICAL: Protective threshold is absent. MUSCULOSKELETAL: No gross deformities are noted. LABORATORY DATA: White blood cell count 16.4, hemoglobin and hematocrit is 11.7 and 35.4, and platelet count is 513,000. Glucose is 253, creatinine is 2.4, BUN is 49, potassium is 5.0, albumin is 2.7. No imaging is noted for this admission. ASSESSMENT: 1. Cellulitis, left lower extremity. 2. 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 3. Diabetes with diabetic neuropathy. 4. Chronic diabetic ulcer of the right foot, resolved. 5. Charcot deformity, right foot. 6. Obesity. 7. Difficulty walking. PLAN: 1. MRI of the left ankle will be ordered to evaluate the status of his osteomyelitis. 2. Wound care orders were placed. 3. Recommend infectious disease consult. 4. We will follow. Thank you for the courtesy of this consultation. Raymundo Velasquez D.P.M. DR: Antionette JOB#: [id number] CC:
[2017-10-14] VITALS: BP 122/56
--- NOTE | 2017-10-14 | Operative Note - Dictated ---
DATE OF OPERATION: 10/13/2017 SURGEON: Raymundo Velasquez D.P.M. REHAB LIAISON SURGEON: None. ANESTHESIOLOGIST: Warren Galan M.D. TYPE OF ANESTHESIA: General. PREOPERATIVE DIAGNOSES: 1. Cellulitis abscess of the left lower extremity. 2. 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 3. Diabetes with diabetic neuropathy. 4. Obesity. 5. Difficulty walking. POSTOPERATIVE DIAGNOSES: 1. Cellulitis abscess of the left lower extremity. 2. Chronic diabetic ulcer left heel with osteomyelitis. 3. Diabetes with diabetic neuropathy. 4. Obesity. 5. Difficulty walking. PROCEDURE PERFORMED: 1. Deep incision and drainage below the level of fascia left foot. 2. Excisional debridement to the level of muscle left foot. 3. Partial calcanectomy left foot. ANTIBIOTICS: Given on the floor, he is currently getting Flagyl IV. COMPLICATIONS: None. ESTIMATED BLOOD LOSS: 15 mL. SPECIMENS: Tissue and bone sent to pathology bone, bones sent for culture. OPERATIVE PROCEDURE: The patient was transferred to the operating room and after anesthesia began general anesthesia. The patient was then placed on the operating table in the prone position. The left lower extremity was scrubbed, prepped, and draped in an usual aseptic manner. After anesthesia check and time-out, incision was made. Incision and drainage was performed of the left heel. Fluctuance was noted as well as purulence and malodor. This was explored proximally, distally, medial and laterally. All compartments were evacuated. Debridement was performed of all necrotic tissue. It was noted that the posterior calcaneus was soft and necrotic as well. A sagittal saw was utilized to resect the posterior portion of the exposed calcaneus. The wound was explored thoroughly. No sinus tracts were noted. No more purulence was noted. No malodor was appreciated after debridement. The wound was flushed copiously with antibiotic impregnated saline. Gloves were changed. New drapes were applied and wound was packed utilizing packing as well as a quarter strength Dakin solution. A regional block was performed prior to application of dressings. The patient tolerated the procedure and anesthesia well. He will be transported back up to [facility] for continued IV antibiotics and wound care. We will follow. Raymundo Velasquez D.P.M. DR: AKASH JOB#: [id number] CC:
[2017-10-14] MEDS: oxyCODONE 5mg IR tab ORAL PRN ×3 (02:33→10:35)
[2017-10-14 04:00] VITALS: BP 125/55
[2017-10-14] MEDS: oxyCONTIN 10mg tab ORAL SCH ×3 (05:41→20:23)
[2017-10-14] MEDS: NovoLOG Insulin Flexpen SUBQ SCH ×4 (05:42→21:59)
--- NOTE | 2017-10-14 06:47 | 48 Hour Post Anesthesia Eval ---
Post Anesthesia Evaluation Procedure: L foot debiement of chronic wound Date of Evaluation: Oct 14, 2017 Time of Evaluation: 06:42 Blood Pressure Systolic: 125 0: 55 Pulse Rate: 79 Respiratory Rate: 18 Temperature (Fahrenheit): 98.2 O2 Sat by Pulse Oximetry: 98 Airway: patent Nausea: No Vomiting: No Pain Intensity: 2 Hydration Status: adequate Cardiopulmonary Status: Stable Mental Status/LOC: patient returned to baseline Follow-up Care/Observations: 0 Post-Anesthesia Complications: 0 Follow-up care needed: N/A Gabriel Talbot MD Oct 14, 2017 06:47
[2017-10-14 08:00] VITALS: BP 128/61
[2017-10-14] MEDS: Tamsulosin 0.4mg cap ORAL SCH ×3 (09:00→17:21)
[2017-10-14] MEDS: Heparin 5000 units/ml inj SUBQ SCH ×2 (09:00→21:00)
[2017-10-14] MEDS: Docusate 100mg cap ORAL SCH ×4 (09:00→17:21)
[2017-10-14 09:06] LABS: HEMATOCRIT 31.3 % (42.0-52.0); HEMOGLOBIN 10.2 G/DL (14.2-18.0); MEAN CORPUSCULAR VOLUME 81 FL (80-99); PLATELET COUNT 468 K/UL (150-450); RED BLOOD COUNT 3.86 M/UL (4.70-6.10); RED CELL DISTRIBUTION WIDTH 14.8 % (11.6-14.8); WHITE BLOOD COUNT 13.8 K/UL (4.8-10.8)
[2017-10-14 09:23] LABS: ANION GAP 8 mmol/L (5-15); BLOOD UREA NITROGEN 36 mg/dL (7-18); CALCIUM 7.9 MG/DL (8.5-10.1); CARBON DIOXIDE 23 MMOL/L (21-32); CHLORIDE 104 MMOL/L (98-107); CREATININE 1.6 MG/DL (0.55-1.30); PHOSPHORUS 3.4 MG/DL (2.5-4.9); POTASSIUM 4.6 MMOL/L (3.5-5.1); SODIUM 135 MMOL/L (136-145)
[2017-10-14] MEDS: Nephrovite tab (Rena-Vite) ORAL SCH (09:50)
[2017-10-14] MEDS: Vitamin D 400 INTLU TAB ORAL SCH (09:50)
[2017-10-14] MEDS: Dakin's 0.125% Soln (Quarter Strength) 16oz TOPIC SCH (09:51)
--- NOTE | 2017-10-14 11:23 | Infectious Diseases Prog Note ---
Assessment/Plan Assessment/Plan ASSESSMENT AND PLAN: 1. gram negative bacteremia, proteus/klebsiella left heel/foot wound infection and osteomyelitis on MRI, sepsis, leukocytosis - s/p debridement - leukocytosis better - f/u on wound culture and blood cultures - change abx to meropenem and vancomycin - will need 6 week of iv abx - d/w Dr. Prieto and Dr. Velasquez 2. Elevated creatinine, chronic renal failure, acute kidney injury. 3. Anemia. 4. The patient with history of diabetes. 5. Hypertension. 6. Blood sugar and blood pressure treatment per primary. 7. Benign prostatic hypertrophy. 8. Atherosclerotic cardiovascular disease. 9. Chronic diastolic congestive heart failure. 10. Anemia. 11. Dizziness, headaches, weakness, and fatigue. 12. Allergies, acetaminophen, gabapentin, ibuprofen, Elavil, pregabalin, and selective serotonin reuptake inhibitors. 13. Social history negative. 14. Family history noncontributory. 15. MAR was noted. 16. Case discussed with RN. 17. Continue treatment per primary consultants. 18. Orders were entered. 19. Notes and records noted. Subjective Constitutional: Denies: fever, fatigue Respiratory: Denies: shortness of breath Breasts: Denies: discharge Cardiovascular: Denies: chest pain Gastrointestinal/Abdominal: Denies: nausea, vomiting Genitourinary: Denies: dysuria, hematuria Neurologic: Denies: headache Psychiatric: Denies: depression Skin: Denies: rash Hematologic: Denies: bleeding Musculoskeletal: Denies: pain Allergies: Coded Allergies: GABAPENTIN (Verified Allergy, Unknown, 10/11/17) OLIVE OIL (Verified Adverse Reaction, Severe, SPASM IN THE COLON, 01/18/14) PREGABALIN (Verified Adverse Reaction, Intermediate, "hypernervous", ) ACETAMINOPHEN (Verified Adverse Reaction, Mild, IRRITABILITY AND ELEVATED BLOOD PRESSURE, 01/18/14) IBUPROFEN (Verified Adverse Reaction, Mild, IRRITABILITY AND ELEVATED BLOOD PRESSURE, 01/18/14) Uncoded Allergies: SSRI (Allergy, Unknown, 10/11/17) Objective Vital Signs Last 24 Hour Vital Signs Date Time Temp Pulse Resp B/P (MAP) Pulse Ox O2 Delivery O2 Flow Rate FiO2 10/14/17 08:00 97.7 68 18 128/61 95 Room Air 97.7 10/14/17 06:47 208.8 79 18 98 10/14/17 04:00 98.2 79 18 125/55 98 Room Air 98.2 10/14/17 00:00 97.8 79 20 122/56 95 Room Air 97.8 10/13/17 20:00 97.7 84 20 117/61 95 Room Air 97.7 10/13/17 16:00 98.2 90 20 136/94 100 98.2 10/13/17 15:25 97.8 72 15 123/58 100 Nasal Cannula 3.0 97.8 10/13/17 15:10 71 16 129/56 100 Nasal Cannula 3.0 10/13/17 15:05 66 14 126/50 100 Nasal Cannula 3.0 10/13/17 15:00 207.7 78 22 99 10/13/17 14:55 71 18 123/44 100 Nasal Cannula 3.0 10/13/17 14:50 68 14 113/85 100 Simple Mask 6.0 10/13/17 14:45 98.0 62 12 141/42 100 Simple Mask 6.0 98.0 Height (Feet): 5 Height (Inches): 8.00 Weight (Pounds): 185 General Appearance: no acute distress HEENT: normocephalic, atraumatic, anicteric, mucous membranes moist Respiratory/Chest: lungs clear, normal breath sounds, no respiratory distress, no accessory muscle use Cardiovascular: normal rate, regular rhythm, no gallop/murmur, no JVD Abdomen: normal bowel sounds, soft, non tender, no organomegaly, non distended Genitourinary: other - no connolly, no cva pain Extremities: no cyanosis, other - left leg cellulitis better, less redness noted, left heel covered Skin: no rash Neurologic/Psychiatric: [place] II-XII grossly normal, alert, responsive Lymphatic: no neck adenopathy Musculoskeletal: no effusion Objective Chest x-ray - Impression: Bibasilar atelectasis and elevation of the right hemidiaphragm. No acute process otherwise. MRI left foot and ankle - Impression: Positive for progressive osteomyelitis of the posterior calcaneus, since prior study of 08/02/2017 Increasing ulceration of the overlying soft tissues, with possible exposure of the medial aspect of the calcaneal tuberosity. Small amount of gas within the medial soft tissues,. The related open wound or could indicate infection by gas-forming organism Complete tear with retraction of the calcaneal tendon, as described. Fluid in the tibiotalar joint. Probably reactive secondary to the above Diffuse edema of the subcutaneous fat. This could be due to cellulitis or could be related to hemodynamic abnormalities Other findings as noted Findings discussed by phone with Dr. Prieto at the time of interpretation Microbiology Date/Time Source Procedure Growth Status 10/11/17 15:30 Blood Blood Culture - Preliminary NO GROWTH AFTER 48 HOURS Resulted 10/11/17 17:00 Nasal Nares MRSA Culture - Final NO METHICILLIN RESISTANT STAPH AUREUS... Complete 10/12/17 06:45 Urine,Clean Catch Urine Culture - Preliminary NO GROWTH AFTER 24 HOURS Resulted 10/11/17 17:00 Rectum VRE Culture - Final NO VANCOMYCIN RESISTANT ENTEROCOCCUS ... Complete Microbiology Date/Time Source Procedure Growth Status 10/11/17 15:30 Blood Blood Culture - Preliminary NO GROWTH AFTER 48 HOURS Resulted 10/11/17 15:15 Blood Blood Culture - Preliminary Resulted 10/11/17 17:00 Nasal Nares MRSA Culture - Final NO METHICILLIN RESISTANT STAPH AUREUS... Complete 10/12/17 06:45 Urine,Clean Catch Urine Culture - Preliminary NO GROWTH AFTER 24 HOURS Resulted 10/11/17 17:00 Rectum VRE Culture - Final NO VANCOMYCIN RESISTANT ENTEROCOCCUS ... Complete 10/11/17 17:00 Foot Left Gram Stain - Final Resulted 10/11/17 17:00 Wound Culture - Preliminary Klebsiella Pneumoniae Proteus Mirabilis Resulted Laboratory Tests Test 10/13/17 15:45 10/14/17 00:50 10/14/17 08:45 Random Vancomycin Level 10.3 ug/mL Urine Eosinophils None seen White Blood Count 13.8 K/UL (4.8-10.8) H Red Blood Count 3.86 M/UL (4.70-6.10) L Hemoglobin 10.2 G/DL (14.2-18.0) L Hematocrit 31.3 % (42.0-52.0) L Mean Corpuscular Volume 81 FL (80-99) Mean Corpuscular Hemoglobin 26.4 PG (27.0-31.0) L Mean Corpuscular Hemoglobin Concent 32.6 G/DL (32.0-36.0) Red Cell Distribution Width 14.8 % (11.6-14.8) Platelet Count 468 K/UL (150-450) H Mean Platelet Volume 5.5 FL (6.5-10.1) L Neutrophils (%) (Auto) % (45.0-75.0) Lymphocytes (%) (Auto) % (20.0-45.0) Monocytes (%) (Auto) % (1.0-10.0) Eosinophils (%) (Auto) % (0.0-3.0) Basophils (%) (Auto) % (0.0-2.0) Neutrophils % (Manual) Pending Lymphocytes % (Manual) Pending Platelet Estimate Pending Platelet Morphology Pending Sodium Level 135 MMOL/L (136-145) L Potassium Level 4.6 MMOL/L (3.5-5.1) Chloride Level 104 MMOL/L (98-107) Carbon Dioxide Level 23 MMOL/L (21-32) Anion Gap 8 mmol/L (5-15) Blood Urea Nitrogen 36 mg/dL (7-18) H Creatinine 1.6 MG/DL (0.55-1.30) H Estimat Glomerular Filtration Rate mL/min (>60) Glucose Level 207 MG/DL (74-106) H Calcium Level 7.9 MG/DL (8.5-10.1) L Phosphorus Level 3.4 MG/DL (2.5-4.9) Magnesium Level 1.9 MG/DL (1.8-2.4) Current Medications Medications (Trade) Dose Ordered Sig/Dari Route PRN Reason Start Time Stop Time Status Last Admin Dose Admin Acetaminophen (Tylenol) 650 mg Q4H PRN ORAL Mild Pain (Scale 1-3), fever 10/11/17 16:45 11/10/17 16:44 Amlodipine Besylate (Norvasc) 5 mg DAILY ORAL 10/12/17 09:00 11/11/17 08:59 10/13/17 09:34 Bisacodyl (Dulcolax) 10 mg HSPRN PRN RECTAL Constipation 10/11/17 17:15 11/10/17 17:14 Cefepime HCl 2 gm/ Sodium Chloride 110 ml @ 220 mls/hr QHS IV 10/12/17 21:00 10/19/17 20:59 10/13/17 22:37 Clotrimazole (Lotrimin) 1 applic EVERY 12 HOURS TOPIC 10/14/17 08:00 11/13/17 07:59 10/14/17 09:51 Dextrose (Dextrose 50%) STAT PRN IV Hypoglycemia 10/11/17 16:45 11/10/17 16:44 Docusate Sodium (Colace) 100 mg TID ORAL 10/12/17 13:30 11/10/17 13:29 10/13/17 09:34 Finasteride (Proscar) 5 mg DAILY ORAL 10/12/17 09:00 11/11/17 08:59 10/13/17 09:33 Heparin Sodium (Porcine) (Heparin 5000 units/ml) 5,000 units EVERY 12 HOURS SUBQ 10/11/17 21:00 11/10/17 20:59 10/13/17 21:29 Insulin Aspart (NovoLOG) BEFORE MEALS AND HS SUBQ 10/11/17 21:00 11/10/17 20:59 10/14/17 05:42 Metronidazole 100 ml @ 100 mls/hr Q8HR IVPB 10/12/17 22:00 10/19/17 21:59 10/14/17 05:40 Mirtazapine (Remeron) 15 mg BEDTIME ORAL 10/11/17 21:00 11/10/17 20:59 10/13/17 21:23 Ondansetron HCl (Zofran) 4 mg Q6H PRN IVP Nausea & Vomiting 10/11/17 16:45 11/10/17 16:44 Oxycodone HCl (OxyCONTIN) 10 mg Q8HR ORAL 10/11/17 22:00 10/18/17 21:59 10/14/17 05:41 Oxycodone HCl (Roxicodone) 5 mg Q4H PRN ORAL moderate pain 10/11/17 16:45 10/18/17 16:44 Oxycodone HCl (Roxicodone) 10 mg Q4H PRN ORAL severe pain 10/11/17 16:45 10/18/17 16:44 10/14/17 10:35 Polyethylene Glycol (Miralax) 17 gm HSPRN PRN ORAL Constipation 10/11/17 16:45 11/10/17 16:44 Sodium Hypochlorite (Dakin's Quarter Strength) 1 applic DAILY TOPIC 10/13/17 14:10 11/12/17 14:09 10/14/17 09:51 Sodium Chloride 1,000 ml @ 75 mls/hr [id number] IVLG 10/11/17 17:37 11/10/17 17:36 10/14/17 00:08 Tamsulosin HCl (Flomax) 0.4 mg BID ORAL 10/12/17 13:30 11/10/17 13:29 10/13/17 09:34 Vancomycin HCl (Vanco rx to dose) 1 ea DAILY PRN MISC Per rx protocol 10/11/17 16:45 11/10/17 16:44 Vancomycin HCl/ Dextrose 250 ml @ 166.667 mls/hr Q24H IVPB 10/13/17 18:00 10/18/17 17:59 10/13/17 18:45 Vitamin B Complex/ Vit C/Folic Acid (Nephrovite) 1 tab DAILY ORAL 10/12/17 09:00 11/11/17 08:59 10/14/17 09:50 Vitamin D (Vitamin D) 2,000 intlu DAILY ORAL 10/12/17 09:00 11/11/17 08:59 10/14/17 09:50 LARON HERNANDEZ 2, 2018 11:23
--- NOTE | 2017-10-14 11:41 | Wound Care Consultation ---
Wound Assessment Wound Assessment #1: Wound Number: 1 Wound Present on Admission: Yes New Wound: No Status Change of Wound: No Wound Location Body Site: perineal area Wound Type: erosion [place] Test: Does not [place] Rashes: Jessie w/erosion Percent of Wound [place]/Red: 100 Wound Drainage Amount: None Wound Drainage Odor: None/Absent Tissue Surrounding Wound: Erythemic Wound General Appearance: Reddened Wound Assessment #2: Wound Number: 2 Wound Present on Admission: Yes New Wound: No Status Change of Wound: No Wound Location Body Site Modif: left Wound Location Body Site: heel [place] Test: Does not [place] Vascular Issues: diabetic foot ulcers Wound Thickness: Full Thickness Wound Length: 10.5 Wound Width: 10.5 Wound Depth: utd Percent of Wound Black/Brown: 100 Wound Drainage Description: Serosanguineous Wound Drainage Amount: Moderate Wound Drainage Odor: Mild Odor Tissue Surrounding Wound: Macerated Wound General Appearance: Blackened, Draining, Necrotic Wound Comment #1 Perineal area jessie rash with erosion #2 Left heel diabetic foot ulcer. Recommendation -Pt is under the care of Dr Velasquez. Please follow MD's order for left heel. -Keep clean and dry -Turn and reposition -Offload both heels -Heel protector on both heels -Optimize nutrition -Assess and f/u accordingly for any changes VENTURA BANKS RN Oct 14, 2017 11:41
[2017-10-14 12:00] VITALS: BP 122/60
[2017-10-14 16:00] VITALS: BP 112/94
--- NOTE | 2017-10-14 16:29 | Nephrology Progress Note ---
Assessment/Plan Problem List: (1) HTN (hypertension) (2) Diabetes mellitus (3) Ulcer of left heel (4) Renal insufficiency Assessment Foot ulcer, left left leg cellulitis, left heel ulcer, ? osteo, leukocytosis, lgt Renal insufficiency acute vs chronic Cr lowering Anemia UTI Plan Kidney FAMILIA Unremarkable kidneys. Negative for hydronephrosis Note inability of the patient to void with a bladder volume of 337 mL 2D echo :Left ventricular ejection fraction estimated to be 55-60%. No evidence of left ventricular hypertrophy. Avoid Nephrotoxics Keep BP in check monitor renal parameters Anemia henry urine studies Subjective ROS Limited/Unobtainable: No Objective Objective Last 24 Hour Vital Signs Date Time Temp Pulse Resp B/P (MAP) Pulse Ox O2 Delivery O2 Flow Rate FiO2 10/14/17 12:00 98.3 75 18 122/60 98 Room Air 98.3 10/14/17 08:00 97.7 68 18 128/61 95 Room Air 97.7 10/14/17 06:47 208.8 79 18 98 10/14/17 04:00 98.2 79 18 125/55 98 Room Air 98.2 10/14/17 00:00 97.8 79 20 122/56 95 Room Air 97.8 10/13/17 20:00 97.7 84 20 117/61 95 Room Air 97.7 Intake and Output 10/13/17 10/14/17 19:00 07:00 Intake Total 1635 ml 1635 ml Output Total 50 ml 700 ml Balance 1585 ml 935 ml Intake Oral 360 ml 600 ml IV Total 1275 ml 1035 ml Output Urine Total 700 ml Estimated Blood Loss 50 ml # Voids 4 Laboratory Tests 10/14/17 00:50: Urine Eosinophils None seen 10/14/17 08:45: White Blood Count 13.8H, Red Blood Count 3.86L, Hemoglobin 10.2L, Hematocrit 31.3L, Mean Corpuscular Volume 81, Mean Corpuscular Hemoglobin 26.4L, Mean Corpuscular Hemoglobin Concent 32.6, Red Cell Distribution Width 14.8, Platelet Count 468H, Mean Platelet Volume 5.5L, Neutrophils (%) (Auto) , Lymphocytes (%) (Auto) , Monocytes (%) (Auto) , Eosinophils (%) (Auto) , Basophils (%) (Auto) , Differential Total Cells Counted 100, Neutrophils % (Manual) 82H, Lymphocytes % (Manual) 7L, Monocytes % (Manual) 8, Eosinophils % (Manual) 3, Basophils % ( Manual) 0, Band Neutrophils 0, Platelet Estimate Adequate, Platelet Morphology Normal, Hypochromasia 1+, Anisocytosis 1+, Sodium Level 135L, Potassium Level 4.6, Chloride Level 104, Carbon Dioxide Level 23, Anion Gap 8, Blood Urea Nitrogen 36H, Creatinine 1.6H, Estimat Glomerular Filtration Rate , Glucose Level 207H, Calcium Level 7.9L, Phosphorus Level 3.4, Magnesium Level 1.9 Height (Feet): 5 Height (Inches): 8.00 Weight (Pounds): 185 General Appearance: no apparent distress Cardiovascular: normal rate Respiratory/Chest: decreased breath sounds Abdomen: distended Extremities: other - swollen Objective no other changes IHSAN REGALADO Oct 14, 2017 16:29
[2017-10-14] MEDS: Vancomycin 1250mg/D5W 250ml IVPB SCH (17:21)
--- NOTE | 2017-10-14 20:30 | Progress Note ---
DATE: 10/14/2017 SUBJECTIVE: The patient is the same. Has episodes of agitation. Poor memory, not engaged during the evaluation. MENTAL STATUS EXAMINATION: Patient is alert and oriented times self, place, and situation. Mood is anxious and agitated. Affect is constricted. Congruent mood. Thought process is concrete. Thought content, no suicidal or homicidal ideation. ASSESSMENT: Dementia with behavior disturbance and agitation. PLAN: 1. Continue risperidone 1 mg at bedtime. 2. Continue Remeron 15 at bedtime. 3. Continue to follow and readjust the medications. Milton Lancaster M.D. DR: Sae JOB#: [id number] CC:
--- NOTE | 2017-10-14 20:45 | Consultation ---
DATE OF CONSULTATION: 10/13/2017 HISTORY OF PRESENT ILLNESS: The patient is a 72-year-old male with history of diabetes mellitus, neuropathy, nephropathy, hypertension, CKD and heart failure, who has been admitted to the hospital for left lower extremity cellulitis. During the evaluation, the patient has been having persecutory delusions. He constantly questioned. He perseverated that he does not trust people. He believes people are stealing from him. He is also having cognitive impairment and lose his belongings. The patient has impairment of concentration, memory and attention. When I asked about the year and month, there was a pause and he thought we are in 2016 and the month is November. PAST PSYCHIATRIC HISTORY: He denies any psychiatric history, however, has had episodes of agitation in the hospital. PAST MEDICAL HISTORY: Significant for neuropathy, diabetes mellitus, CKD, hypertension and heart failure. ALLERGIES: Gabapentin, Elavil, acetaminophen, ibuprofen, and pregabalin. SUBSTANCE ABUSE HISTORY: No known history of illicit drug use or alcohol. MENTAL STATUS EXAMINATION: The patient is alert and oriented times self, place, and situation he is in. Mood is anxious. Affect is constricted. Congruent mood. Thought process is concrete. Thought content, no suicidal or homicidal ideations. Positive for persecutory delusions. Cognition is impaired. Insight and judgment impaired. ASSESSMENT: [place] I Dementia with behavior disturbance, depression by history. [place] II Deferred. [place] III As above. [place] IV Low. [place] V Global assessment of functioning is 40. PLAN: 1. We will start the patient on risperidone 1 mg at bedtime. 2. We will continue to follow and readjust the medications. Milton Lancaster M.D. DR: Miriam JOB#: [id number] CC:
[2017-10-15] VITALS: BP 134/92
--- NOTE | 2017-10-15 | General Progress Note ---
Assessment/Plan Problem List: (1) Gram-negative bacteremia ICD Codes: R78.81 - Bacteremia SNOMED: 699651317006 (2) Sepsis ICD Codes: A41.9 - Sepsis, unspecified organism SNOMED: 84198111 (3) Progressive osteomyelitis of the posterior calcaneus (4) Cellulitis of left lower extremity ICD Codes: L03.116 - Cellulitis of left lower limb SNOMED: 467397229 (5) L heel diabetic ulcer with concern for osteomyelitis (6) Complete tear with retraction of the calcaneal tendon (7) MISHEL on CKD (8) CKD stage 3 (9) DM2 (diabetes mellitus, type 2) Assessment & Plan: A1C 9.9 ICD Codes: E11.9 - Type 2 diabetes mellitus without complications SNOMED: 02843853 (10) HTN (hypertension) ICD Codes: I10 - Essential (primary) hypertension SNOMED: 85692454 (11) Diabetic neuropathy ICD Codes: E11.40 - Type 2 diabetes mellitus with diabetic neuropathy, unspecified SNOMED: 17534856, 611979120, 277486475 (12) Diabetic nephropathy ICD Codes: E11.21 - Type 2 diabetes mellitus with diabetic nephropathy SNOMED: 55657373, 307546093 Qualifiers: Qualified Codes: E11.21 - Type 2 diabetes mellitus with diabetic nephropathy (13) Hyponatremia ICD Codes: E87.1 - Hypo-osmolality and hyponatremia SNOMED: 21887971 (14) Chronic diabetic ulcer right foot Status: stable Assessment/Plan Podiatry, ID, renal consulted Empiric vanco (10/11-) D/c cefepime and flagyl per ID (10/11-10/14), start meropenem (10/14-) F/u cultures--blood culture showing GNR, wound culture showing Klebsiella and Proteus F/u repeat blood cultures Will need PICC line once repeat blood cultures neg Wound care per podiatry Check MRI L foot--shows progressive osteomyelitis, heel ulceration, soft tissue gas, complete tear of Achilles tendon s/p incision and drainage left foot, excisional debridement to the level of muscle left foot, and partial calcanectomy left foot on 10/13/17 IVFs given MISHEL Avoid nephrotoxins Check renal U/S--shows bladder volume 337mL, pt able to void Check TTE--EF 55-60% Pain control, bowel regimen Supportive care Cont SNF meds but hold lasix, MTF for now ZENIA DVT Prophylaxis: HSQ Code Status: Full Hospital Classification Declaration: Based on this initial evaluation, and depending on the patient's clinical course, I anticipate that this patient will require hospitalization for 2-3 days for LLE cellulitis, L heel diabetic ulcer w / concern for osteo, and close respiratory/hemodynamic monitoring. Disposition: Once the patient is stable to leave the hospital, I anticipate the patient will likely be discharged to the following environment: back to SNF Discussed with patient/family, nursing staff, SW/CM, podiatry, ID regarding clinical status, treatment course, and disposition planning. D/w ID re abx. D/w podiatry re surgery Time of note may not reflect time of encounter Subjective Date patient seen: Oct 14, 2017 Time patient seen: 16:00 ROS Limited/Unobtainable: No Constitutional: Reports: weakness HEENT: Reports: no symptoms Cardiovascular: Reports: no symptoms Respiratory: Reports: no symptoms Gastrointestinal/Abdominal: Reports: no symptoms Genitourinary: Reports: no symptoms Neurologic/Psychiatric: Reports: no symptoms Endocrine: Reports: no symptoms Hematologic/Lymphatic: Reports: no symptoms Allergies: Coded Allergies: GABAPENTIN (Verified Allergy, Unknown, 10/11/17) OLIVE OIL (Verified Adverse Reaction, Severe, SPASM IN THE COLON, 01/18/14) PREGABALIN (Verified Adverse Reaction, Intermediate, "hypernervous", ) ACETAMINOPHEN (Verified Adverse Reaction, Mild, IRRITABILITY AND ELEVATED BLOOD PRESSURE, 01/18/14) IBUPROFEN (Verified Adverse Reaction, Mild, IRRITABILITY AND ELEVATED BLOOD PRESSURE, 01/18/14) Uncoded Allergies: SSRI (Allergy, Unknown, 10/11/17) All Systems: reviewed and negative except above Subjective No acute o/n events MRI L foot shows progressive osteomyelitis, heel ulcer, soft tissue gas, complete tear of Achilles tendon s/p incision and drainage left foot, excisional debridement to the level of muscle left foot, and partial calcanectomy left foot POD#1 Blood cultures growing GNR Wound culture showing proteus and klebsiella Pt c/o foot pain. Lethargic, some chills. Denies n/v, d/c, chest pain, SOB, abd pain Objective Last 24 Hour Vital Signs Date Time Temp Pulse Resp B/P (MAP) Pulse Ox O2 Delivery O2 Flow Rate FiO2 10/14/17 20:00 97.7 82 20 98 97.7 10/14/17 16:00 97.2 84 18 112/94 99 Room Air 97.2 10/14/17 12:00 98.3 75 18 122/60 98 Room Air 98.3 10/14/17 08:00 97.7 68 18 128/61 95 Room Air 97.7 10/14/17 06:47 208.8 79 18 98 10/14/17 04:00 98.2 79 18 125/55 98 Room Air 98.2 Intake and Output 10/14/17 10/15/17 19:00 07:00 Intake Total 700 ml Output Total 300 ml Balance 400 ml Intake Oral 700 ml Post Void Residual 300 ml Bladder Scan Volume Amount <10 ml # Voids 5 # Bowel Movements 1 Laboratory Tests 10/14/17 00:50: Urine Eosinophils None seen 10/14/17 08:45: White Blood Count 13.8H, Red Blood Count 3.86L, Hemoglobin 10.2L, Hematocrit 31.3L, Mean Corpuscular Volume 81, Mean Corpuscular Hemoglobin 26.4L, Mean Corpuscular Hemoglobin Concent 32.6, Red Cell Distribution Width 14.8, Platelet Count 468H, Mean Platelet Volume 5.5L, Neutrophils (%) (Auto) , Lymphocytes (%) (Auto) , Monocytes (%) (Auto) , Eosinophils (%) (Auto) , Basophils (%) (Auto) , Differential Total Cells Counted 100, Neutrophils % (Manual) 82H, Lymphocytes % (Manual) 7L, Monocytes % (Manual) 8, Eosinophils % (Manual) 3, Basophils % ( Manual) 0, Band Neutrophils 0, Platelet Estimate Adequate, Platelet Morphology Normal, Hypochromasia 1+, Anisocytosis 1+, Sodium Level 135L, Potassium Level 4.6, Chloride Level 104, Carbon Dioxide Level 23, Anion Gap 8, Blood Urea Nitrogen 36H, Creatinine 1.6H, Estimat Glomerular Filtration Rate , Glucose Level 207H, Calcium Level 7.9L, Phosphorus Level 3.4, Magnesium Level 1.9 Height (Feet): 5 Height (Inches): 8.00 Weight (Pounds): 185 Objective General: alert, cooperative, no distress, appears stated age Head: normocephalic, without obvious abnormality, atraumatic Eyes: conjunctivae/corneas clear. PERRL, EOM's intact Throat: lips, mucosa, and tongue normal. MMM Neck: supple, symmetrical, trachea midline, and no JVD Lungs: clear to auscultation bilaterally Heart: regular rate and rhythm, S1, S2 normal, no murmur, click, rub or gallop Abdomen: soft, non-tender, non-distended, bowel sounds normal Extremities: extremities normal, atraumatic, no cyanosis, 1-2+ pitting edema BLE Pulses: 2+ and symmetric Skin: Left heel full-thickness ulceration which probes to bone, +erythema/edema/ warmth, +purulent drainage Right plantar midfoot with full-thickness ulceration measuring 1 cm in diameter with granular wound base.There is no erythema, drainage, fluctuance, or malodor Neurologic: grossly normal, no focal deficits Conner Orozco M.D. Oct 15, 2017 00:00
[2017-10-15] MEDS: oxyCODONE 5mg IR tab ORAL PRN ×4 (01:07→18:24)
--- NOTE | 2017-10-15 02:00 | Consultation ---
DATE OF CONSULTATION: 10/14/2017 NOTE: POOR AUDIO HEMATOLOGY/ONCOLOGY CONSULTATION CONSULTING PHYSICIAN: Giovany Wiggins M.D. REQUESTING PHYSICIANS: Gaurav Lomeli M.D. and Conner Orozco M.D. REASON FOR CONSULTATION: Evaluation of anemia, thrombocytosis. IDENTIFICATION DATA: Dear Dr. Prieto, The patient is a pleasant 72-year-old male with past medical history significant for heel ulceration in left side, chronic heel ulceration, which appears to be infected, secondary cellulitis, and elevated white count. MRI showed osteomyelitis. Wound cultures grew out gram-negative rods. The patient was noticed to have anemia. Hematology Service was consulted for evaluation and treatment as well as thrombocytosis. The patient has elevated creatinine as well and they are reviewed. Case discussed with the patient. PAST MEDICAL HISTORY: heart failure, elevated creatinine, history of diastolic heart failure, CHF, anemia, atherosclerotic cardiovascular disease, diabetes, hypertension, BPH, vertigo, dizziness, and history of headaches. MEDICATIONS: Norvasc, Proscar, vitamin D, Colace, vancomycin, vitamin B, . ALLERGIES: Neurontin, ibuprofen, Elavil, pregabalin . SOCIAL HISTORY: Negative for alcohol, tobacco, or illicit drug use. FAMILY HISTORY: Noncontributory. REVIEW OF SYSTEMS: CONSTITUTIONAL: No fever, chills, or night sweats. SKIN: No rashes, bumps, or itching. HEENT: No headache, hearing or vision changes. BREASTS: No lumps, pain, or discharge. PULMONARY: No cough, sputum, or shortness of breath. GASTROINTESTINAL: No nausea, vomiting, or diarrhea. GENITOURINARY: No dysuria, frequency, or urgency. MUSCULOSKELETAL: No joint swelling, muscle pain, or trauma. PHYSICAL EXAMINATION: VITAL SIGNS: Reviewed. GENERAL: No distress. PULMONARY: Decreased breath sounds. Some crackles noted. CARDIOVASCULAR: Regular rate. No S3 or S4. ABDOMEN: Soft, nontender, and nondistended. EXTREMITIES: No cyanosis, swelling, or edema reported. LABORATORY DATA: WBC 14.8, hemoglobin 10.2, hematocrit 31, and platelet count . Chemistry reviewed. Ferritin 531 TIBC , 7.6, and vitamin B12 of 1700. ASSESSMENT AND RECOMMENDATION: 1. Anemia due to underlying chronic disease. Continue to closely monitor. Hemoglobin goal is above 7 . 2. potentially secondary to osteomyelitis. 3. Leukocytosis, status post debridement, gram-negative jasmyn infection noted. Currently, WBC count slowly improving on meropenem. Service following. 4. Anemia due to underlying kidney disease. Closely monitor, again improving. 5. Thrombocytosis, reactive process from underlying anemia, closely monitor for improvement . 6. Elevated creatinine, chronic kidney disease. 7. Diabetes mellitus, on insulin sliding scale as needed as per primary team. 8. Diastolic dysfunction. I appreciate the consultation. Giovany Wiggins M.D. DR: ANA CRISTINA JOB#: [id number] CC:
[2017-10-15] MEDS: oxyCONTIN 10mg tab ORAL SCH ×3 (06:36→21:22)
[2017-10-15] MEDS: NovoLOG Insulin Flexpen SUBQ SCH ×4 (06:38→21:10)
[2017-10-15 07:16] LABS: BASOPHILS % (AUTO) 0.7 % (0.0-2.0); EOSINOPHILS % (AUTO) 5.9 % (0.0-3.0); HEMATOCRIT 32.2 % (42.0-52.0); HEMOGLOBIN 10.6 G/DL (14.2-18.0); LYMPHOCYTES % (AUTO) 12.7 % (20.0-45.0); MEAN CORPUSCULAR VOLUME 80 FL (80-99); MONOCYTES % (AUTO) 5.5 % (1.0-10.0); NEUTROPHILS % (AUTO) 75.2 % (45.0-75.0); PLATELET COUNT 493 K/UL (150-450); RED BLOOD COUNT 3.99 M/UL (4.70-6.10); WHITE BLOOD COUNT 14.5 K/UL (4.8-10.8)
--- NOTE | 2017-10-15 07:16 | Podiatric Progress Note ---
Assessment/Plan Patient Hank Nava is a 72 year old male who was admitted on Oct 11, 2017 at 15:22 with Problems: Assessment/Plan A/ 1) Cellulitis left lower extremity 2) Chronic diabetic ulcer left heel with osteomyelitis 3) DM with Diabetic Neuropathy 4) Chronic diabetic ulcer right foot 5) Charcot deformity right foot 6) Obesity 7) Difficulty walking 8) Dementia P/ 1) Dressing changed performed with nurse today. Advised patient of his condition , I am not sure he understands the gravity of his condition. Will continue with limb salvage. Will need wound VAC to granulate over exposed bone. 2) Dilaudid ordered for pain management 3) Abx per ID 4) Will follow Subjective Allergies: Coded Allergies: GABAPENTIN (Verified Allergy, Unknown, 10/11/17) OLIVE OIL (Verified Adverse Reaction, Severe, SPASM IN THE COLON, 01/18/14) PREGABALIN (Verified Adverse Reaction, Intermediate, "hypernervous", ) ACETAMINOPHEN (Verified Adverse Reaction, Mild, IRRITABILITY AND ELEVATED BLOOD PRESSURE, 01/18/14) IBUPROFEN (Verified Adverse Reaction, Mild, IRRITABILITY AND ELEVATED BLOOD PRESSURE, 01/18/14) Uncoded Allergies: SSRI (Allergy, Unknown, 10/11/17) Subjective Patient is upset. He would [facility] be at [facility]. He refused medication and refused dressing changes. He pulled out his IV. Objective Exam Last 24 Hour Vital Signs Date Time Temp Pulse Resp B/P (MAP) Pulse Ox O2 Delivery O2 Flow Rate FiO2 10/15/17 00:00 98.2 83 19 134/92 97 Room Air 98.2 10/14/17 20:00 97.7 82 20 98 97.7 10/14/17 16:00 97.2 84 18 112/94 99 Room Air 97.2 10/14/17 12:00 98.3 75 18 122/60 98 Room Air 98.3 10/14/17 08:00 97.7 68 18 128/61 95 Room Air 97.7 Laboratory Tests Test 10/14/17 08:45 10/15/17 06:20 White Blood Count 13.8 K/UL (4.8-10.8) H Pending Red Blood Count 3.86 M/UL (4.70-6.10) L Pending Hemoglobin 10.2 G/DL (14.2-18.0) L Pending Hematocrit 31.3 % (42.0-52.0) L Pending Mean Corpuscular Volume 81 FL (80-99) Pending Mean Corpuscular Hemoglobin 26.4 PG (27.0-31.0) L Pending Mean Corpuscular Hemoglobin Concent 32.6 G/DL (32.0-36.0) Pending Red Cell Distribution Width 14.8 % (11.6-14.8) Pending Platelet Count 468 K/UL (150-450) H Pending Mean Platelet Volume 5.5 FL (6.5-10.1) L Pending Neutrophils (%) (Auto) % (45.0-75.0) Pending Lymphocytes (%) (Auto) % (20.0-45.0) Pending Monocytes (%) (Auto) % (1.0-10.0) Pending Eosinophils (%) (Auto) % (0.0-3.0) Pending Basophils (%) (Auto) % (0.0-2.0) Pending Differential Total Cells Counted 100 Neutrophils % (Manual) 82 % (45-75) H Lymphocytes % (Manual) 7 % (20-45) L Monocytes % (Manual) 8 % (1-10) Eosinophils % (Manual) 3 % (0-3) Basophils % (Manual) 0 % (0-2) Band Neutrophils 0 % (0-8) Platelet Estimate Adequate Platelet Morphology Normal Hypochromasia 1+ Anisocytosis 1+ Sodium Level 135 MMOL/L (136-145) L Pending Potassium Level 4.6 MMOL/L (3.5-5.1) Pending Chloride Level 104 MMOL/L (98-107) Pending Carbon Dioxide Level 23 MMOL/L (21-32) Pending Anion Gap 8 mmol/L (5-15) Blood Urea Nitrogen 36 mg/dL (7-18) H Pending Creatinine 1.6 MG/DL (0.55-1.30) H Pending Estimat Glomerular Filtration Rate mL/min (>60) Pending Glucose Level 207 MG/DL (74-106) H Pending Calcium Level 7.9 MG/DL (8.5-10.1) L Pending Phosphorus Level 3.4 MG/DL (2.5-4.9) Magnesium Level 1.9 MG/DL (1.8-2.4) Microbiology Date/Time Source Procedure Growth Status 10/11/17 15:30 Blood Blood Culture - Preliminary NO GROWTH AFTER 48 HOURS Resulted 10/11/17 17:00 Nasal Nares MRSA Culture - Final NO METHICILLIN RESISTANT STAPH AUREUS... Complete 10/12/17 06:45 Urine,Clean Catch Urine Culture - Preliminary NO GROWTH AFTER 24 HOURS Resulted 10/13/17 19:20 Foot Left Gram Stain - Final Resulted 10/13/17 19:20 Aerobic Culture - Preliminary Gram Negative Ced Resulted 10/13/17 19:20 Foot Left Anaerobic Culture - Preliminary Resulted Dermatological Wound Assessment : Exudate Amount: Moderate Dermatological Narrative Left heel wound appears clean, 70% granular, plantar fat exposed. Wound margins viable, no malodor noted. No purulence noted. Sero-sang drainage noted. Right plantar foot wound appears healing. Raymundo Velasquez DPM Oct 15, 2017 07:16
[2017-10-15 07:23] LABS: ANION GAP 8 mmol/L (5-15); BLOOD UREA NITROGEN 33 mg/dL (7-18); CALCIUM 8.3 MG/DL (8.5-10.1); CARBON DIOXIDE 22 MMOL/L (21-32); CHLORIDE 104 MMOL/L (98-107); CREATININE 1.5 MG/DL (0.55-1.30); POTASSIUM 4.4 MMOL/L (3.5-5.1); SODIUM 134 MMOL/L (136-145)
[2017-10-15 08:00] VITALS: BP 136/54
[2017-10-15] MEDS: Docusate 100mg cap ORAL SCH ×3 (09:00→18:00)
[2017-10-15] MEDS: Tamsulosin 0.4mg cap ORAL SCH ×2 (09:00→18:00)
[2017-10-15] MEDS: Heparin 5000 units/ml inj SUBQ SCH ×2 (09:00→21:00)
[2017-10-15] MEDS: Vitamin D 400 INTLU TAB ORAL SCH (09:37)
[2017-10-15] MEDS: Nephrovite tab (Rena-Vite) ORAL SCH (09:37)
[2017-10-15] MEDS: Dakin's 0.125% Soln (Quarter Strength) 16oz TOPIC SCH ×2 (09:38→21:00)
--- NOTE | 2017-10-15 10:55 | General Progress Note ---
Assessment/Plan Assessment/Plan 1. Anemia due to underlying chronic disease. --> Continue to closely monitor. Hemoglobin goal is above 7 --> anemia workup reviewed. Iron 9, TIBC 127, B12 1791, Folate 41 2. Anemia of iron deficiency, potentially secondary to osteomyelitis. --> Monitor closely. 3. Leukocytosis, status post debridement, gram-negative jasmyn infection noted. --> Currently, WBC count slowly improving on meropenem. --> Infectious Disease Service following. 4. Anemia due to underlying kidney disease. --> Closely monitor, again improving. 5. Thrombocytosis, likely reactive process from underlying anemia, closely monitor for improvement. 6. Elevated creatinine, chronic kidney disease. 7. Diabetes mellitus, on insulin sliding scale as needed as per primary team. 8. Diastolic dysfunction. Subjective Date patient seen: Oct 14, 2017 Constitutional: Denies: no symptoms, chills, diaphoresis, fever, malaise, weakness, other HEENT: Denies: no symptoms, eye pain, blurred vision, tearing, double vision, ear pain, ear discharge, nose pain, nose congestion, throat pain, throat swelling, mouth pain, mouth swelling, other Cardiovascular: Denies: no symptoms, chest pain, edema, irregular heart rate, lightheadedness, palpitations, syncope, other Respiratory: Denies: no symptoms, cough, orthopnea, shortness of breath, SOB with excertion, SOB at rest, sputum, stridor, wheezing, other Gastrointestinal/Abdominal: Denies: no symptoms, abdomen distended, abdominal pain, black stools, tarry stools, blood in stool, constipated, diarrhea, difficulty swallowing, nausea, poor appetite, poor fluid intake, rectal bleeding , vomiting, other Genitourinary: Denies: no symptoms, burning, discharge, frequency, flank pain, hematuria, incontinence, pain, urgency, other Neurologic/Psychiatric: Denies: no symptoms, anxiety, depressed, emotional problems, headache, numbness, paresthesia, pre-existing deficit, seizure, tingling, tremors, weakness, other Allergies: Coded Allergies: GABAPENTIN (Verified Allergy, Unknown, 10/11/17) OLIVE OIL (Verified Adverse Reaction, Severe, SPASM IN THE COLON, 01/18/14) PREGABALIN (Verified Adverse Reaction, Intermediate, "hypernervous", ) ACETAMINOPHEN (Verified Adverse Reaction, Mild, IRRITABILITY AND ELEVATED BLOOD PRESSURE, 01/18/14) IBUPROFEN (Verified Adverse Reaction, Mild, IRRITABILITY AND ELEVATED BLOOD PRESSURE, 01/18/14) Uncoded Allergies: SSRI (Allergy, Unknown, 10/11/17) Subjective Agitated. H/H stable. Wbc remains elevated. Objective Last 24 Hour Vital Signs Date Time Temp Pulse Resp B/P (MAP) Pulse Ox O2 Delivery O2 Flow Rate FiO2 10/15/17 08:00 97.7 82 21 136/54 97 Room Air 97.7 10/15/17 00:00 98.2 83 19 134/92 97 Room Air 98.2 10/14/17 20:00 97.7 82 20 98 97.7 10/14/17 16:00 97.2 84 18 112/94 99 Room Air 97.2 10/14/17 12:00 98.3 75 18 122/60 98 Room Air 98.3 Intake and Output 10/14/17 10/15/17 19:00 07:00 Intake Total 775 ml 975 ml Output Total 300 ml 650 ml Balance 475 ml 325 ml Intake Oral 700 ml 600 ml IV Total 75 ml 375 ml Output Urine Total 650 ml Post Void Residual 300 ml Bladder Scan Volume Amount <10 ml # Voids 5 6 # Bowel Movements 1 Laboratory Tests 10/15/17 06:20: White Blood Count 14.5H, Red Blood Count 3.99L, Hemoglobin 10.6L, Hematocrit 32.2L, Mean Corpuscular Volume 80, Mean Corpuscular Hemoglobin 26.6L, Mean Corpuscular Hemoglobin Concent 33.1, Red Cell Distribution Width 15.0H, Platelet Count 493H, Mean Platelet Volume 5.3L, Neutrophils (%) (Auto) 75.2H, Lymphocytes (%) (Auto) 12.7L, Monocytes (%) (Auto) 5.5, Eosinophils (%) (Auto) 5.9H, Basophils (%) (Auto) 0.7, Sodium Level 134L, Potassium Level 4.4, Chloride Level 104, Carbon Dioxide Level 22, Anion Gap 8, Blood Urea Nitrogen 33H, Creatinine 1.5H, Estimat Glomerular Filtration Rate , Glucose Level 197H, Calcium Level 8.3L Height (Feet): 5 Height (Inches): 8.00 Weight (Pounds): 185 Giovany Wiggins Oct 15, 2017 10:55
[2017-10-15 11:53] VITALS: BP 122/51
--- NOTE | 2017-10-15 12:30 | Nephrology Progress Note ---
Assessment/Plan Problem List: (1) HTN (hypertension) (2) Diabetes mellitus (3) Ulcer of left heel (4) Renal insufficiency Assessment Foot ulcer, left left leg cellulitis, left heel ulcer, ? osteo, leukocytosis, lgt Renal insufficiency acute vs chronic Cr lowering Anemia UTI Plan Avoid Nephrotoxics Keep BP in check monitor renal parameters Anemia henry urine studies Kidney FAMILIA Unremarkable kidneys. Negative for hydronephrosis Note inability of the patient to void with a bladder volume of 337 mL 2D echo :Left ventricular ejection fraction estimated to be 55-60%. No evidence of left ventricular hypertrophy. Subjective ROS Limited/Unobtainable: No Constitutional: Reports: malaise Objective Objective Last 24 Hour Vital Signs Date Time Temp Pulse Resp B/P (MAP) Pulse Ox O2 Delivery O2 Flow Rate FiO2 10/15/17 11:53 97.9 65 19 122/51 98 Room Air 97.9 10/15/17 08:00 97.7 82 21 136/54 97 Room Air 97.7 10/15/17 00:00 98.2 83 19 134/92 97 Room Air 98.2 10/14/17 20:00 97.7 82 20 98 97.7 10/14/17 16:00 97.2 84 18 112/94 99 Room Air 97.2 Intake and Output 10/14/17 10/15/17 19:00 07:00 Intake Total 775 ml 975 ml Output Total 300 ml 650 ml Balance 475 ml 325 ml Intake Oral 700 ml 600 ml IV Total 75 ml 375 ml Output Urine Total 650 ml Post Void Residual 300 ml Bladder Scan Volume Amount <10 ml # Voids 5 6 # Bowel Movements 1 Laboratory Tests 10/15/17 06:20: White Blood Count 14.5H, Red Blood Count 3.99L, Hemoglobin 10.6L, Hematocrit 32.2L, Mean Corpuscular Volume 80, Mean Corpuscular Hemoglobin 26.6L, Mean Corpuscular Hemoglobin Concent 33.1, Red Cell Distribution Width 15.0H, Platelet Count 493H, Mean Platelet Volume 5.3L, Neutrophils (%) (Auto) 75.2H, Lymphocytes (%) (Auto) 12.7L, Monocytes (%) (Auto) 5.5, Eosinophils (%) (Auto) 5.9H, Basophils (%) (Auto) 0.7, Sodium Level 134L, Potassium Level 4.4, Chloride Level 104, Carbon Dioxide Level 22, Anion Gap 8, Blood Urea Nitrogen 33H, Creatinine 1.5H, Estimat Glomerular Filtration Rate , Glucose Level 197H, Calcium Level 8.3L Height (Feet): 5 Height (Inches): 8.00 Weight (Pounds): 185 General Appearance: no apparent distress Cardiovascular: normal rate Respiratory/Chest: decreased breath sounds Abdomen: soft Extremities: other - swollen Objective no other changes IHSAN REGALADO Oct 15, 2017 12:30
--- NOTE | 2017-10-15 12:45 | General Progress Note ---
Assessment/Plan Problem List: (1) Gram-negative bacteremia ICD Codes: R78.81 - Bacteremia SNOMED: 189395773479 (2) Sepsis ICD Codes: A41.9 - Sepsis, unspecified organism SNOMED: 99325387 (3) Progressive osteomyelitis of the posterior calcaneus (4) Cellulitis of left lower extremity ICD Codes: L03.116 - Cellulitis of left lower limb SNOMED: 876070830 (5) L heel diabetic ulcer with concern for osteomyelitis (6) Complete tear with retraction of the calcaneal tendon (7) MISHEL on CKD (8) CKD stage 3 (9) DM2 (diabetes mellitus, type 2) Assessment & Plan: A1C 9.9 ICD Codes: E11.9 - Type 2 diabetes mellitus without complications SNOMED: 44792729 (10) HTN (hypertension) ICD Codes: I10 - Essential (primary) hypertension SNOMED: 24227662 (11) Diabetic neuropathy ICD Codes: E11.40 - Type 2 diabetes mellitus with diabetic neuropathy, unspecified SNOMED: 21096208, 802368486, 060081996 (12) Diabetic nephropathy ICD Codes: E11.21 - Type 2 diabetes mellitus with diabetic nephropathy SNOMED: 78147213, 588706873 Qualifiers: Qualified Codes: E11.21 - Type 2 diabetes mellitus with diabetic nephropathy (13) Hyponatremia ICD Codes: E87.1 - Hypo-osmolality and hyponatremia SNOMED: 41396775 (14) Chronic diabetic ulcer right foot Status: stable Assessment/Plan Podiatry, ID, renal consulted Cont anco (10/11-) Cont meropenem (10/14-) s/p cefepime and flagyl (10/11-10/14) F/u cultures--blood culture showing GNR, wound culture showing Klebsiella and Proteus F/u repeat blood cultures--ngtd Will need PICC line once repeat blood cultures neg Wound care per podiatry Check MRI L foot--shows progressive osteomyelitis, heel ulceration, soft tissue gas, complete tear of Achilles tendon s/p incision and drainage left foot, excisional debridement to the level of muscle left foot, and partial calcanectomy left foot on 10/13/17 IVFs given MISHEL Avoid nephrotoxins Check renal U/S--shows bladder volume 337mL, pt able to void Flomax 0.4mg BID + finasteride 5mg daily Check TTE--EF 55-60% Pain control, bowel regimen Supportive care Cont SNF meds but hold lasix, MTF for now ZENIA DVT Prophylaxis: HSQ Code Status: Full Hospital Classification Declaration: Based on this initial evaluation, and depending on the patient's clinical course, I anticipate that this patient will require hospitalization for 1-2 days for LLE cellulitis, L heel diabetic ulcer w / concern for osteo, and close respiratory/hemodynamic monitoring. Disposition: Once the patient is stable to leave the hospital, I anticipate the patient will likely be discharged to the following environment: back to SNF Discussed with patient/family, nursing staff, SW/CM, podiatry, ID regarding clinical status, treatment course, and disposition planning. D/w ID re abx. D/w podiatry re surgery Time of note may not reflect time of encounter Subjective Date patient seen: Oct 15, 2017 Time patient seen: 12:45 ROS Limited/Unobtainable: No Constitutional: Reports: no symptoms HEENT: Reports: no symptoms Cardiovascular: Reports: no symptoms Respiratory: Reports: no symptoms Gastrointestinal/Abdominal: Reports: no symptoms Genitourinary: Reports: no symptoms Neurologic/Psychiatric: Reports: no symptoms Endocrine: Reports: no symptoms Hematologic/Lymphatic: Reports: no symptoms Allergies: Coded Allergies: GABAPENTIN (Verified Allergy, Unknown, 10/11/17) OLIVE OIL (Verified Adverse Reaction, Severe, SPASM IN THE COLON, 01/18/14) PREGABALIN (Verified Adverse Reaction, Intermediate, "hypernervous", ) ACETAMINOPHEN (Verified Adverse Reaction, Mild, IRRITABILITY AND ELEVATED BLOOD PRESSURE, 01/18/14) IBUPROFEN (Verified Adverse Reaction, Mild, IRRITABILITY AND ELEVATED BLOOD PRESSURE, 01/18/14) Uncoded Allergies: SSRI (Allergy, Unknown, 10/11/17) All Systems: reviewed and negative except above Subjective No acute o/n events MRI L foot shows progressive osteomyelitis, heel ulcer, soft tissue gas, complete tear of Achilles tendon s/p incision and drainage left foot, excisional debridement to the level of muscle left foot, and partial calcanectomy left foot POD#2 Blood cultures growing GNR Wound culture showing proteus and klebsiella Pt c/o foot pain. Lethargic, some chills. Denies n/v, d/c, chest pain, SOB, abd pain Objective Last 24 Hour Vital Signs Date Time Temp Pulse Resp B/P (MAP) Pulse Ox O2 Delivery O2 Flow Rate FiO2 10/15/17 11:53 97.9 65 19 122/51 98 Room Air 97.9 10/15/17 08:00 97.7 82 21 136/54 97 Room Air 97.7 10/15/17 00:00 98.2 83 19 134/92 97 Room Air 98.2 10/14/17 20:00 97.7 82 20 98 97.7 10/14/17 16:00 97.2 84 18 112/94 99 Room Air 97.2 Intake and Output 10/14/17 10/15/17 19:00 07:00 Intake Total 775 ml 975 ml Output Total 300 ml 650 ml Balance 475 ml 325 ml Intake Oral 700 ml 600 ml IV Total 75 ml 375 ml Output Urine Total 650 ml Post Void Residual 300 ml Bladder Scan Volume Amount <10 ml # Voids 5 6 # Bowel Movements 1 Laboratory Tests 10/15/17 06:20: White Blood Count 14.5H, Red Blood Count 3.99L, Hemoglobin 10.6L, Hematocrit 32.2L, Mean Corpuscular Volume 80, Mean Corpuscular Hemoglobin 26.6L, Mean Corpuscular Hemoglobin Concent 33.1, Red Cell Distribution Width 15.0H, Platelet Count 493H, Mean Platelet Volume 5.3L, Neutrophils (%) (Auto) 75.2H, Lymphocytes (%) (Auto) 12.7L, Monocytes (%) (Auto) 5.5, Eosinophils (%) (Auto) 5.9H, Basophils (%) (Auto) 0.7, Sodium Level 134L, Potassium Level 4.4, Chloride Level 104, Carbon Dioxide Level 22, Anion Gap 8, Blood Urea Nitrogen 33H, Creatinine 1.5H, Estimat Glomerular Filtration Rate , Glucose Level 197H, Calcium Level 8.3L Height (Feet): 5 Height (Inches): 8.00 Weight (Pounds): 185 Objective General: alert, cooperative, no distress, appears stated age Head: normocephalic, without obvious abnormality, atraumatic Eyes: conjunctivae/corneas clear. PERRL, EOM's intact Throat: lips, mucosa, and tongue normal. MMM Neck: supple, symmetrical, trachea midline, and no JVD Lungs: clear to auscultation bilaterally Heart: regular rate and rhythm, S1, S2 normal, no murmur, click, rub or gallop Abdomen: soft, non-tender, non-distended, bowel sounds normal Extremities: extremities normal, atraumatic, no cyanosis, 1-2+ pitting edema BLE Pulses: 2+ and symmetric Skin: Left heel full-thickness ulceration which probes to bone, +erythema/edema/ warmth, +purulent drainage Right plantar midfoot with full-thickness ulceration measuring 1 cm in diameter with granular wound base.There is no erythema, drainage, fluctuance, or malodor Neurologic: grossly normal, no focal deficits Conner Orozco M.D. Oct 15, 2017 12:45
[2017-10-15] MEDS: Vancomycin 1250mg/D5W 250ml IVPB SCH (17:41)
[2017-10-15 19:50] VITALS: BP 125/85
[2017-10-15] MEDS ORDERED: Vancomycin 1gm in D5W 275ml IVPB SCH (21:00)
[2017-10-16] MEDS: oxyCODONE 5mg IR tab ORAL PRN ×2 (01:41→14:01)
[2017-10-16 04:00] VITALS: BP 112/59
[2017-10-16] MEDS: Hydromorphone 0.5mg/0.5ml inj IVP PRN (04:55)
[2017-10-16] MEDS: oxyCONTIN 10mg tab ORAL SCH ×3 (06:08→22:26)
[2017-10-16] MEDS: NovoLOG Insulin Flexpen SUBQ SCH ×4 (06:12→22:40)
[2017-10-16 08:00] VITALS: BP 125/51
[2017-10-16] MEDS: Nephrovite tab (Rena-Vite) ORAL SCH (09:00)
[2017-10-16] MEDS: Vitamin D 400 INTLU TAB ORAL SCH (09:00)
[2017-10-16] MEDS: Heparin 5000 units/ml inj SUBQ SCH ×2 (09:00→22:43)
[2017-10-16] MEDS: Docusate 100mg cap ORAL SCH ×3 (09:00→18:00)
[2017-10-16] MEDS: Tamsulosin 0.4mg cap ORAL SCH ×2 (09:03→18:00)
--- NOTE | 2017-10-16 12:36 | Nephrology Progress Note ---
Assessment/Plan Problem List: (1) HTN (hypertension) (2) Diabetes mellitus (3) Ulcer of left heel (4) Renal insufficiency Assessment Foot ulcer, left left leg cellulitis, left heel ulcer, ? osteo, leukocytosis, lgt Renal insufficiency acute vs chronic Cr lowering Urinary retention: REFUSES NG Anemia UTI Plan Avoid Nephrotoxics Keep BP in check monitor renal parameters Anemia henry urine studies flomax start cardura Kidney FAMILIA Unremarkable kidneys. Negative for hydronephrosis Note inability of the patient to void with a bladder volume of 337 mL 2D echo :Left ventricular ejection fraction estimated to be 55-60%. No evidence of left ventricular hypertrophy. Subjective ROS Limited/Unobtainable: No Constitutional: Reports: malaise Objective Objective Last 24 Hour Vital Signs Date Time Temp Pulse Resp B/P (MAP) Pulse Ox O2 Delivery O2 Flow Rate FiO2 10/16/17 09:03 77 125/51 10/16/17 08:00 98.6 77 18 125/51 96 98.6 10/16/17 04:00 98.2 75 21 112/59 96 98.2 10/15/17 19:50 99.0 77 21 125/85 97 99.0 10/15/17 15:39 97.9 Intake and Output 10/15/17 10/16/17 19:00 07:00 Intake Total 100 ml 1675.000 ml Output Total 500 ml 1600 ml Balance -400 ml 75.000 ml Intake Oral 1300 ml IV Total 100 ml 375.000 ml Output Urine Total 200 ml 1600 ml Post Void Residual 300 ml Bladder Scan Volume Amount <10 ml # Voids 3 Laboratory Tests 10/15/17 18:00: Vancomycin Level Trough 21.5H Height (Feet): 5 Height (Inches): 8.00 Weight (Pounds): 185 General Appearance: no apparent distress, lethargic Cardiovascular: normal rate Respiratory/Chest: decreased breath sounds Abdomen: distended Extremities: other - legs swollen Objective no other changes IHSAN REGALADO Oct 16, 2017 12:36
[2017-10-16] MEDS: Doxazosin 1mg Tab ORAL SCH ×2 (13:00→18:00)
[2017-10-16 14:57] LABS: BASOPHILS % (AUTO) 0.5 % (0.0-2.0); EOSINOPHILS % (AUTO) 2.9 % (0.0-3.0); HEMATOCRIT 28.6 % (42.0-52.0); HEMOGLOBIN 9.3 G/DL (14.2-18.0); LYMPHOCYTES % (AUTO) 8.7 % (20.0-45.0); MEAN CORPUSCULAR VOLUME 80 FL (80-99); MONOCYTES % (AUTO) 5.9 % (1.0-10.0); NEUTROPHILS % (AUTO) 82.1 % (45.0-75.0); PLATELET COUNT 476 K/UL (150-450); RED BLOOD COUNT 3.57 M/UL (4.70-6.10); RED CELL DISTRIBUTION WIDTH 14.9 % (11.6-14.8); WHITE BLOOD COUNT 15.7 K/UL (4.8-10.8)
[2017-10-16] MEDS ORDERED: FLOMAX0.4 MG ORAL (15:13)
[2017-10-16] MEDS ORDERED: NORVASC2.5 MG ORAL (15:13)
[2017-10-16] MEDS ORDERED: DOXAZOSIN MESYLA1 MG ORAL (15:13)
[2017-10-16] MEDS ORDERED: RISPERDAL1 MG ORAL (15:13)
--- NOTE | 2017-10-16 15:17 | General Progress Note ---
Assessment/Plan Problem List: (1) Gram-negative bacteremia ICD Codes: R78.81 - Bacteremia SNOMED: 248825805103 (2) Sepsis ICD Codes: A41.9 - Sepsis, unspecified organism SNOMED: 50842959 (3) Progressive osteomyelitis of the posterior calcaneus (4) Cellulitis of left lower extremity ICD Codes: L03.116 - Cellulitis of left lower limb SNOMED: 232886556 (5) L heel diabetic ulcer with concern for osteomyelitis (6) Complete tear with retraction of the calcaneal tendon (7) MISHEL on CKD (8) CKD stage 3 (9) DM2 (diabetes mellitus, type 2) Assessment & Plan: A1C 9.9 ICD Codes: E11.9 - Type 2 diabetes mellitus without complications SNOMED: 67417192 (10) HTN (hypertension) ICD Codes: I10 - Essential (primary) hypertension SNOMED: 83662051 (11) Diabetic neuropathy ICD Codes: E11.40 - Type 2 diabetes mellitus with diabetic neuropathy, unspecified SNOMED: 67300110, 379379599, 962912894 (12) Diabetic nephropathy ICD Codes: E11.21 - Type 2 diabetes mellitus with diabetic nephropathy SNOMED: 91505499, 549859417 Qualifiers: Qualified Codes: E11.21 - Type 2 diabetes mellitus with diabetic nephropathy (13) Hyponatremia ICD Codes: E87.1 - Hypo-osmolality and hyponatremia SNOMED: 56296074 (14) Chronic diabetic ulcer right foot Status: stable Assessment/Plan Podiatry, ID, renal consulted D/c vanco (10/11-10/16) Cont meropenem (10/14-) Will need total of 6 weeks of IV abx per ID given osteomyelitis s/p cefepime and flagyl (10/11-10/14) F/u cultures--blood culture showing GNR, wound culture showing Klebsiella and Proteus F/u repeat blood cultures--ngtd PICC line ordered Wound care per podiatry Check MRI L foot--shows progressive osteomyelitis, heel ulceration, soft tissue gas, complete tear of Achilles tendon s/p incision and drainage left foot, excisional debridement to the level of muscle left foot, and partial calcanectomy left foot on 10/13/17 NWB LLE IVFs given MISHEL Avoid nephrotoxins Check renal U/S--shows bladder volume 337mL, refused connolly Flomax 0.4mg BID + finasteride 5mg daily Check TTE--EF 55-60% Pain control, bowel regimen Supportive care Cont SNF meds but hold lasix, MTF for now ZENIA RODARTE planning to SNF tomorrow once PICC placced. Will need meropenem for 37 more days on d/c DVT Prophylaxis: HSQ Code Status: Full Hospital Classification Declaration: Based on this initial evaluation, and depending on the patient's clinical course, I anticipate that this patient will require hospitalization for 1-2 days for LLE cellulitis, L heel diabetic ulcer w / concern for osteo, and close respiratory/hemodynamic monitoring. Disposition: Once the patient is stable to leave the hospital, I anticipate the patient will likely be discharged to the following environment: back to SNF Discussed with patient/family, nursing staff, SW/CM, podiatry, ID regarding clinical status, treatment course, and disposition planning. D/w ID re abx on d/ c, PICC. D/w podiatry re surgery Time of note may not reflect time of encounter Subjective Date patient seen: Oct 16, 2017 Time patient seen: 15:17 ROS Limited/Unobtainable: No Constitutional: Reports: weakness HEENT: Reports: no symptoms Cardiovascular: Reports: no symptoms Respiratory: Reports: no symptoms Gastrointestinal/Abdominal: Reports: no symptoms Genitourinary: Reports: no symptoms Neurologic/Psychiatric: Reports: no symptoms Endocrine: Reports: no symptoms Hematologic/Lymphatic: Reports: no symptoms Allergies: Coded Allergies: GABAPENTIN (Verified Allergy, Unknown, 10/11/17) OLIVE OIL (Verified Adverse Reaction, Severe, SPASM IN THE COLON, 01/18/14) PREGABALIN (Verified Adverse Reaction, Intermediate, "hypernervous", ) ACETAMINOPHEN (Verified Adverse Reaction, Mild, IRRITABILITY AND ELEVATED BLOOD PRESSURE, 01/18/14) IBUPROFEN (Verified Adverse Reaction, Mild, IRRITABILITY AND ELEVATED BLOOD PRESSURE, 01/18/14) Uncoded Allergies: SSRI (Allergy, Unknown, 10/11/17) Subjective No acute o/n events MRI L foot shows progressive osteomyelitis, heel ulcer, soft tissue gas, complete tear of Achilles tendon s/p incision and drainage left foot, excisional debridement to the level of muscle left foot, and partial calcanectomy left foot POD#3 Blood cultures growing Bacterioides fragilis. Repeat blood cultures neg Wound culture showing proteus and klebsiella Pt c/o foot pain. Lethargic, some chills. Denies n/v, d/c, chest pain, SOB, abd pain Objective Last 24 Hour Vital Signs Date Time Temp Pulse Resp B/P (MAP) Pulse Ox O2 Delivery O2 Flow Rate FiO2 10/16/17 09:03 77 125/51 10/16/17 08:00 98.6 77 18 125/51 96 98.6 10/16/17 04:00 98.2 75 21 112/59 96 98.2 10/15/17 19:50 99.0 77 21 125/85 97 99.0 10/15/17 15:39 97.9 Intake and Output 10/15/17 10/16/17 19:00 07:00 Intake Total 100 ml 1675.000 ml Output Total 500 ml 1600 ml Balance -400 ml 75.000 ml Intake Oral 1300 ml IV Total 100 ml 375.000 ml Output Urine Total 200 ml 1600 ml Post Void Residual 300 ml Bladder Scan Volume Amount <10 ml # Voids 3 Laboratory Tests 10/15/17 18:00: Vancomycin Level Trough 21.5H 10/16/17 14:25: White Blood Count 15.7H, Red Blood Count 3.57L, Hemoglobin 9.3L, Hematocrit 28.6L, Mean Corpuscular Volume 80, Mean Corpuscular Hemoglobin 26.2L, Mean Corpuscular Hemoglobin Concent 32.6, Red Cell Distribution Width 14.9H, Platelet Count 476H, Mean Platelet Volume 5.4L, Neutrophils (%) (Auto) 82.1H, Lymphocytes (%) (Auto) 8.7L, Monocytes (%) (Auto) 5.9, Eosinophils (%) (Auto) 2.9, Basophils (%) (Auto) 0.5, Sodium Level [Pending], Potassium Level [Pending] , Chloride Level [Pending], Carbon Dioxide Level [Pending], Blood Urea Nitrogen [Pending], Creatinine [Pending], Estimat Glomerular Filtration Rate [Pending], Glucose Level [Pending], Calcium Level [Pending] Height (Feet): 5 Height (Inches): 8.00 Weight (Pounds): 185 Objective General: alert, cooperative, no distress, appears stated age Head: normocephalic, without obvious abnormality, atraumatic Eyes: conjunctivae/corneas clear. PERRL, EOM's intact Throat: lips, mucosa, and tongue normal. MMM Neck: supple, symmetrical, trachea midline, and no JVD Lungs: clear to auscultation bilaterally Heart: regular rate and rhythm, S1, S2 normal, no murmur, click, rub or gallop Abdomen: soft, non-tender, non-distended, bowel sounds normal Extremities: extremities normal, atraumatic, no cyanosis, 1-2+ pitting edema BLE Pulses: 2+ and symmetric Skin: Left heel full-thickness ulceration which probes to bone, +erythema/edema/ warmth, +purulent drainage Right plantar midfoot with full-thickness ulceration measuring 1 cm in diameter with granular wound base.There is no erythema, drainage, fluctuance, or malodor Neurologic: grossly normal, no focal deficits Conner Orozco M.D. Oct 16, 2017 15:17
--- NOTE | 2017-10-16 15:21 | Infectious Diseases Prog Note ---
Assessment/Plan Assessment/Plan ASSESSMENT AND PLAN: 1. bacteroides bacteremia, proteus/klebsiella left heel/foot wound infection and osteomyelitis on MRI, sepsis, leukocytosis - s/p debridement - leukocytosis persists, continue to monitor - f/u on wound culture and blood cultures - change abx to invanz iv daily for 5 weeks to complete 6 week course of abx - d/w Dr. Prieto and Dr. Velasquez - d/w pharmacy about abx dosing 2. Elevated creatinine, chronic renal failure, acute kidney injury. 3. Anemia. 4. The patient with history of diabetes. 5. Hypertension. 6. Blood sugar and blood pressure treatment per primary. 7. Benign prostatic hypertrophy. 8. Atherosclerotic cardiovascular disease. 9. Chronic diastolic congestive heart failure. 10. Anemia. 11. Dizziness, headaches, weakness, and fatigue. 12. Allergies, acetaminophen, gabapentin, ibuprofen, Elavil, pregabalin, and selective serotonin reuptake inhibitors. 13. Social history negative. 14. Family history noncontributory. 15. MAR was noted. 16. Case discussed with RN. 17. Continue treatment per primary consultants. 18. Orders were entered. 19. Notes and records noted. Subjective Constitutional: Reports: fatigue, Denies: fever HEENT: Denies: congestion Respiratory: Denies: shortness of breath Cardiovascular: Denies: chest pain Gastrointestinal/Abdominal: Denies: nausea, vomiting, diarrhea Genitourinary: Denies: dysuria, hematuria, frequency Neurologic: Denies: headache Psychiatric: Denies: depression Skin: Denies: rash Hematologic: Denies: bleeding Musculoskeletal: Denies: pain Allergies: Coded Allergies: GABAPENTIN (Verified Allergy, Unknown, 10/11/17) OLIVE OIL (Verified Adverse Reaction, Severe, SPASM IN THE COLON, 01/18/14) PREGABALIN (Verified Adverse Reaction, Intermediate, "hypernervous", ) ACETAMINOPHEN (Verified Adverse Reaction, Mild, IRRITABILITY AND ELEVATED BLOOD PRESSURE, 01/18/14) IBUPROFEN (Verified Adverse Reaction, Mild, IRRITABILITY AND ELEVATED BLOOD PRESSURE, 01/18/14) Uncoded Allergies: SSRI (Allergy, Unknown, 10/11/17) Objective Vital Signs Last 24 Hour Vital Signs Date Time Temp Pulse Resp B/P (MAP) Pulse Ox O2 Delivery O2 Flow Rate FiO2 10/16/17 09:03 77 125/51 10/16/17 08:00 98.6 77 18 125/51 96 98.6 10/16/17 04:00 98.2 75 21 112/59 96 98.2 10/15/17 19:50 99.0 77 21 125/85 97 99.0 10/15/17 15:39 97.9 Height (Feet): 5 Height (Inches): 8.00 Weight (Pounds): 185 General Appearance: no acute distress HEENT: normocephalic, atraumatic, anicteric, mucous membranes moist, EOMI, pharynx normal, supple, no JVD Respiratory/Chest: lungs clear, normal breath sounds, no respiratory distress, no accessory muscle use Cardiovascular: normal rate, regular rhythm, no gallop/murmur, no JVD Abdomen: normal bowel sounds, soft, non tender, no organomegaly, non distended Genitourinary: other - no connolly Extremities: no cyanosis, other - wound covered Skin: no rash, no lesions Neurologic/Psychiatric: global coordinator II-XII grossly normal, alert, oriented x 3, responsive Lymphatic: no neck adenopathy Musculoskeletal: no effusion Objective Chest x-ray - Impression: Bibasilar atelectasis and elevation of the right hemidiaphragm. No acute process otherwise. MRI left foot and ankle - Impression: Positive for progressive osteomyelitis of the posterior calcaneus, since prior study of 08/02/2017 Increasing ulceration of the overlying soft tissues, with possible exposure of the medial aspect of the calcaneal tuberosity. Small amount of gas within the medial soft tissues,. The related open wound or could indicate infection by gas-forming organism Complete tear with retraction of the calcaneal tendon, as described. Fluid in the tibiotalar joint. Probably reactive secondary to the above Diffuse edema of the subcutaneous fat. This could be due to cellulitis or could be related to hemodynamic abnormalities Other findings as noted Findings discussed by phone with Dr. Prieto at the time of interpretation Microbiology Date/Time Source Procedure Growth Status 10/14/17 08:50 Blood Blood Culture - Preliminary NO GROWTH AFTER 24 HOURS Resulted 10/14/17 08:45 Blood Blood Culture - Preliminary NO GROWTH AFTER 24 HOURS Resulted 10/13/17 19:20 Foot Left Gram Stain - Final Resulted 10/13/17 19:20 Aerobic Culture - Preliminary Klebsiella Pneumoniae Proteus Mirabilis Resulted 10/13/17 19:20 Foot Left Anaerobic Culture - Preliminary Resulted Laboratory Tests Test 10/15/17 18:00 10/16/17 14:25 Vancomycin Level Trough 21.5 ug/mL (5.0-12.0) H White Blood Count 15.7 K/UL (4.8-10.8) H Red Blood Count 3.57 M/UL (4.70-6.10) L Hemoglobin 9.3 G/DL (14.2-18.0) L Hematocrit 28.6 % (42.0-52.0) L Mean Corpuscular Volume 80 FL (80-99) Mean Corpuscular Hemoglobin 26.2 PG (27.0-31.0) L Mean Corpuscular Hemoglobin Concent 32.6 G/DL (32.0-36.0) Red Cell Distribution Width 14.9 % (11.6-14.8) H Platelet Count 476 K/UL (150-450) H Mean Platelet Volume 5.4 FL (6.5-10.1) L Neutrophils (%) (Auto) 82.1 % (45.0-75.0) H Lymphocytes (%) (Auto) 8.7 % (20.0-45.0) L Monocytes (%) (Auto) 5.9 % (1.0-10.0) Eosinophils (%) (Auto) 2.9 % (0.0-3.0) Basophils (%) (Auto) 0.5 % (0.0-2.0) Sodium Level Pending Potassium Level Pending Chloride Level Pending Carbon Dioxide Level Pending Blood Urea Nitrogen Pending Creatinine Pending Estimat Glomerular Filtration Rate Pending Glucose Level Pending Calcium Level Pending Current Medications Medications (Trade) Dose Ordered Sig/Dari Route PRN Reason Start Time Stop Time Status Last Admin Dose Admin Acetaminophen (Tylenol) 650 mg Q4H PRN ORAL Mild Pain (Scale 1-3), fever 10/11/17 16:45 11/10/17 16:44 Amlodipine Besylate (Norvasc) 2.5 mg DAILY ORAL 10/17/17 09:00 11/16/17 08:59 Bisacodyl (Dulcolax) 10 mg HSPRN PRN RECTAL Constipation 10/11/17 17:15 11/10/17 17:14 Chlorhexidine Gluconate (Sarah-Hex 2%) 1 applic DAILY@2000 TOPIC 10/17/17 20:00 11/16/17 19:59 Clotrimazole (Lotrimin) 1 applic EVERY 12 HOURS TOPIC 10/14/17 21:00 11/13/17 20:59 Dextrose (Dextrose 50%) STAT PRN IV Hypoglycemia 10/11/17 16:45 11/10/17 16:44 Docusate Sodium (Colace) 100 mg TID ORAL 10/12/17 13:30 11/10/17 13:29 10/13/17 09:34 Doxazosin Mesylate (Cardura) 1 mg TID ORAL 10/16/17 13:00 11/15/17 12:59 Finasteride (Proscar) 5 mg DAILY ORAL 10/12/17 09:00 11/11/17 08:59 10/16/17 09:04 Heparin Sodium (Porcine) (Heparin 5000 units/ml) 5,000 units EVERY 12 HOURS SUBQ 10/11/17 21:00 11/10/17 20:59 10/13/17 21:29 Hydromorphone HCl (Dilaudid) 0.5 mg Q6HR PRN IVP Pain Scale (6-10) 10/15/17 07:15 10/22/17 07:14 Insulin Aspart (NovoLOG) BEFORE MEALS AND HS SUBQ 10/11/17 21:00 11/10/17 20:59 10/16/17 12:03 Lidocaine (Xylocaine 1% MPF 5ml) 30 ml ONCE INJ 10/16/17 14:00 10/17/17 15:00 Meropenem 1 gm/ Sodium Chloride 100 ml @ 200 mls/hr Q12HR@0200,1400 IVPB 10/14/17 14:00 10/19/17 13:59 10/16/17 13:42 Mirtazapine (Remeron) 15 mg BEDTIME ORAL 10/11/17 21:00 11/10/17 20:59 10/15/17 20:59 Ondansetron HCl (Zofran) 4 mg Q6H PRN IVP Nausea & Vomiting 10/11/17 16:45 11/10/17 16:44 Oxycodone HCl (OxyCONTIN) 10 mg Q8HR ORAL 10/11/17 22:00 10/18/17 21:59 10/16/17 06:08 Oxycodone HCl (Roxicodone) 5 mg Q4H PRN ORAL moderate pain 10/11/17 16:45 10/18/17 16:44 Oxycodone HCl (Roxicodone) 10 mg Q4H PRN ORAL severe pain 10/11/17 16:45 10/18/17 16:44 10/16/17 14:01 Polyethylene Glycol (Miralax) 17 gm HSPRN PRN ORAL Constipation 10/11/17 16:45 11/10/17 16:44 Risperidone (RisperDAL) 1 mg BEDTIME ORAL 10/14/17 21:00 11/13/17 20:59 10/15/17 20:59 Sodium Hypochlorite (Dakin's Quarter Strength) 1 applic DAILY@2100 TOPIC 10/15/17 21:00 11/14/17 20:59 10/15/17 21:00 Tamsulosin HCl (Flomax) 0.4 mg BID ORAL 10/12/17 13:30 11/10/17 13:29 10/16/17 09:03 Vancomycin HCl (Vanco rx to dose) 1 ea DAILY PRN MISC Per rx protocol 10/11/17 16:45 11/10/17 16:44 Vancomycin HCl 1 gm/Dextrose 275 ml @ 183.708 mls/hr Q24H IVPB 10/15/17 21:00 10/20/17 20:59 10/15/17 20:59 Vitamin B Complex/ Vit C/Folic Acid (Nephrovite) 1 tab DAILY ORAL 10/12/17 09:00 11/11/17 08:59 10/15/17 09:37 Vitamin D (Vitamin D) 2,000 intlu DAILY ORAL 10/12/17 09:00 11/11/17 08:59 10/15/17 09:37 LARON HERNANDEZ 4, 2018 15:21
[2017-10-16 15:32] LABS: ANION GAP 7 mmol/L (5-15); BLOOD UREA NITROGEN 28 mg/dL (7-18); CALCIUM 8.2 MG/DL (8.5-10.1); CARBON DIOXIDE 24 MMOL/L (21-32); CHLORIDE 106 MMOL/L (98-107); CREATININE 1.6 MG/DL (0.55-1.30); POTASSIUM 4.6 MMOL/L (3.5-5.1); SODIUM 137 MMOL/L (136-145)
[2017-10-16 16:15] VITALS: BP 106/44
[2017-10-16] MEDS: Ertapenem 1 GM in NS 55 ML IVPB SCH (16:38)
[2017-10-16] MEDS ORDERED: Tubing IV Secondary IV ONE (16:57)
[2017-10-16] MEDS ORDERED: NS 275ml ONE (16:57)
[2017-10-16] MEDS: Levemir Flexpen SUBQ SCH (18:00)
[2017-10-16 20:00] VITALS: BP 111/60
[2017-10-16] MEDS: Dakin's 0.125% Soln (Quarter Strength) 16oz TOPIC SCH (22:28)
--- NOTE | 2017-10-16 23:55 | General Progress Note ---
Assessment/Plan Assessment/Plan 1. Anemia due to underlying chronic disease. --> Continue to closely monitor. Hemoglobin goal is above 7 --> anemia workup reviewed. Iron 9, TIBC 127, B12 1791, Folate 41 --> does not need prbc at this time. 2. Anemia of iron deficiency, potentially secondary to osteomyelitis. --> Monitor closely. 3. Leukocytosis, status post debridement, gram-negative jasmyn infection noted. --> Currently, WBC count slowly improving on meropenem. Monitor closely. --> Infectious Disease Service following. 4. Anemia due to underlying kidney disease. --> Closely monitor, again improving. 5. Thrombocytosis, likely reactive process from underlying anemia, closely monitor for improvement. 6. Elevated creatinine, chronic kidney disease. 7. Diabetes mellitus, on insulin sliding scale as needed as per primary team. 8. Diastolic dysfunction. Subjective Date patient seen: Oct 16, 2017 Constitutional: Denies: no symptoms, chills, diaphoresis, fever, malaise, weakness, other HEENT: Denies: no symptoms, eye pain, blurred vision, tearing, double vision, ear pain, ear discharge, nose pain, nose congestion, throat pain, throat swelling, mouth pain, mouth swelling, other Cardiovascular: Denies: no symptoms, chest pain, edema, irregular heart rate, lightheadedness, palpitations, syncope, other Respiratory: Denies: no symptoms, cough, orthopnea, shortness of breath, SOB with excertion, SOB at rest, sputum, stridor, wheezing, other Gastrointestinal/Abdominal: Denies: no symptoms, abdomen distended, abdominal pain, black stools, tarry stools, blood in stool, constipated, diarrhea, difficulty swallowing, nausea, poor appetite, poor fluid intake, rectal bleeding , vomiting, other Genitourinary: Denies: no symptoms, burning, discharge, frequency, flank pain, hematuria, incontinence, pain, urgency, other Neurologic/Psychiatric: Denies: no symptoms, anxiety, depressed, emotional problems, headache, numbness, paresthesia, pre-existing deficit, seizure, tingling, tremors, weakness, other Hematologic/Lymphatic: Reports: anemia Allergies: Coded Allergies: GABAPENTIN (Verified Allergy, Unknown, 10/11/17) OLIVE OIL (Verified Adverse Reaction, Severe, SPASM IN THE COLON, 01/18/14) PREGABALIN (Verified Adverse Reaction, Intermediate, "hypernervous", ) ACETAMINOPHEN (Verified Adverse Reaction, Mild, IRRITABILITY AND ELEVATED BLOOD PRESSURE, 01/18/14) IBUPROFEN (Verified Adverse Reaction, Mild, IRRITABILITY AND ELEVATED BLOOD PRESSURE, 01/18/14) Uncoded Allergies: SSRI (Allergy, Unknown, 10/11/17) Subjective Confused. Leukocytosis. On abx. Objective Last 24 Hour Vital Signs Date Time Temp Pulse Resp B/P (MAP) Pulse Ox O2 Delivery O2 Flow Rate FiO2 10/16/17 16:15 98.6 89 19 106/44 Room Air 98.6 10/16/17 09:03 77 125/51 10/16/17 08:00 98.6 77 18 125/51 96 98.6 10/16/17 04:00 98.2 75 21 112/59 96 98.2 Intake and Output 10/15/17 10/16/17 19:00 07:00 Intake Total 100 ml 1675.000 ml Output Total 500 ml 1600 ml Balance -400 ml 75.000 ml Intake Oral 1300 ml IV Total 100 ml 375.000 ml Output Urine Total 200 ml 1600 ml Post Void Residual 300 ml Bladder Scan Volume Amount <10 ml # Voids 3 Laboratory Tests 10/16/17 14:25: White Blood Count 15.7H, Red Blood Count 3.57L, Hemoglobin 9.3L, Hematocrit 28.6L, Mean Corpuscular Volume 80, Mean Corpuscular Hemoglobin 26.2L, Mean Corpuscular Hemoglobin Concent 32.6, Red Cell Distribution Width 14.9H, Platelet Count 476H, Mean Platelet Volume 5.4L, Neutrophils (%) (Auto) 82.1H, Lymphocytes (%) (Auto) 8.7L, Monocytes (%) (Auto) 5.9, Eosinophils (%) (Auto) 2.9, Basophils (%) (Auto) 0.5, Sodium Level 137, Potassium Level 4.6, Chloride Level 106, Carbon Dioxide Level 24, Anion Gap 7, Blood Urea Nitrogen 28H, Creatinine 1.6H, Estimat Glomerular Filtration Rate , Glucose Level 259H, Calcium Level 8.2L Height (Feet): 5 Height (Inches): 8.00 Weight (Pounds): 185 General Appearance: confused Giovany Wiggins Oct 16, 2017 23:55
[2017-10-17] VITALS: BP 113/70
[2017-10-17 04:00] VITALS: BP 113/68
[2017-10-17] MEDS: oxyCONTIN 10mg tab ORAL SCH ×4 (05:58→22:07)
[2017-10-17] MEDS: NovoLOG Insulin Flexpen SUBQ SCH ×4 (06:23→22:11)
--- NOTE | 2017-10-17 08:13 | Discharge Instructions ---
Discharge Instructions Discharge Instructions Follow up with: PCP, podiatry in 1-2 weeks Call MD/Return to Hospital if: fevers, chest pain, SOB, purulent drainage Diet: diabetic calorie control Special Instructions Non-weight bearing LLE per podiatry Cont ertapenem 1g daily x 37 more days per ID For Congestive Heart Failure Reminder Report to your physician any weight gain of 5 pounds or more in one week. Conner Orozco M.D. Oct 17, 2017 08:13
[2017-10-17] MEDS: Docusate 100mg cap ORAL SCH ×3 (09:00→18:00)
[2017-10-17] MEDS: Tamsulosin 0.4mg cap ORAL SCH ×2 (09:00→18:00)
[2017-10-17] MEDS: Doxazosin 1mg Tab ORAL SCH ×3 (09:00→18:00)
[2017-10-17] MEDS: Vitamin D 400 INTLU TAB ORAL SCH (09:00)
[2017-10-17] MEDS ORDERED: Heparin 2000 units/Ns 1000ml IV PRN (09:00)
[2017-10-17] MEDS: Nephrovite tab (Rena-Vite) ORAL SCH (09:00)
[2017-10-17] MEDS: Heparin 5000 units/ml inj SUBQ SCH ×2 (09:00→22:12)
[2017-10-17] MEDS: oxyCODONE 5mg IR tab ORAL PRN (10:43)
[2017-10-17 12:00] VITALS: BP 122/58
[2017-10-17] MEDS: Lidocaine 1% MPF 10mg/ml 5ml INJ SCH (12:00)
--- NOTE | 2017-10-17 13:05 | Nephrology Progress Note ---
Assessment/Plan Problem List: (1) HTN (hypertension) (2) Diabetes mellitus (3) Ulcer of left heel (4) Renal insufficiency Assessment Foot ulcer, left left leg cellulitis, left heel ulcer, ? osteo, leukocytosis, lgt Renal insufficiency acute vs chronic Cr lowering Urinary retention: REFUSES NG Anemia UTI Plan no labs today Avoid Nephrotoxics Keep BP in check monitor renal parameters Anemia henry urine studies flomax start cardura Kidney FAMILIA Unremarkable kidneys. Negative for hydronephrosis Note inability of the patient to void with a bladder volume of 337 mL 2D echo :Left ventricular ejection fraction estimated to be 55-60%. No evidence of left ventricular hypertrophy. Subjective ROS Limited/Unobtainable: No Constitutional: Reports: malaise Objective Objective Last 24 Hour Vital Signs Date Time Temp Pulse Resp B/P (MAP) Pulse Ox O2 Delivery O2 Flow Rate FiO2 10/17/17 12:00 98.1 67 18 122/58 98 Room Air 98.1 10/17/17 04:00 98.0 88 19 113/68 98 Room Air 98.0 10/17/17 00:00 98.2 86 18 113/70 97 Room Air 98.2 10/16/17 20:00 98.0 88 18 111/60 96 Room Air 98.0 10/16/17 16:15 98.6 89 19 106/44 Room Air 98.6 Intake and Output 10/16/17 10/17/17 19:00 07:00 Intake Total 450 ml 240 ml Output Total 831 ml Balance -381 ml 240 ml Intake Oral 450 ml 240 ml Output Urine Total 450 ml Post Void Residual 381 ml Bladder Scan Volume Amount > 300 ml # Voids 1 1 Laboratory Tests 10/16/17 14:25: White Blood Count 15.7H, Red Blood Count 3.57L, Hemoglobin 9.3L, Hematocrit 28.6L, Mean Corpuscular Volume 80, Mean Corpuscular Hemoglobin 26.2L, Mean Corpuscular Hemoglobin Concent 32.6, Red Cell Distribution Width 14.9H, Platelet Count 476H, Mean Platelet Volume 5.4L, Neutrophils (%) (Auto) 82.1H, Lymphocytes (%) (Auto) 8.7L, Monocytes (%) (Auto) 5.9, Eosinophils (%) (Auto) 2.9, Basophils (%) (Auto) 0.5, Sodium Level 137, Potassium Level 4.6, Chloride Level 106, Carbon Dioxide Level 24, Anion Gap 7, Blood Urea Nitrogen 28H, Creatinine 1.6H, Estimat Glomerular Filtration Rate , Glucose Level 259H, Calcium Level 8.2L Height (Feet): 5 Height (Inches): 8.00 Weight (Pounds): 185 General Appearance: no apparent distress Respiratory/Chest: decreased breath sounds Abdomen: soft Extremities: other - swollen Objective no other changes IHSAN REGALADO Oct 17, 2017 13:05
[2017-10-17 13:19] LABS: APPEARANCE,URINE CLOUDY; BILIRUBIN, URINE NEGATIVE (NEGATIVE); COLOR,URINE PALE YELLOW; GLUCOSE, URINE (UA) NEGATIVE (NEGATIVE); KETONES,URINE NEGATIVE (NEGATIVE); LEUKOCYTE ESTERASE ,URINE 3+ (NEGATIVE); NITRITE,URINE NEGATIVE (NEGATIVE); PH,URINE 5 (4.5-8.0); PROTEIN,URINE 3+ (NEGATIVE); UROBILINOGEN,URINE NORMAL MG/DL (0.0-1.0)
[2017-10-17] MEDS: Ertapenem 1 GM in NS 55 ML IVPB SCH (15:52)
[2017-10-17 16:00] VITALS: BP 135/63
--- NOTE | 2017-10-17 16:13 | Wound Care Consultation ---
Wound Assessment Wound Assessment : Wound Number: 1 Wound Present on Admission: Yes New Wound: No Status Change of Wound: No Wound Location Body Site Modif: left Wound Location Body Site: heel Wound Type: other - dm ulcer [place] Test: Does not [place] Vascular Issues: diabetic foot ulcers Wound Thickness: Full Thickness Wound Length: 13.0 Wound Width: 13.0 Wound Depth: 1.0 Percent of Wound Gabbs/Red: 70 Percent of Wound Bed Yellow/Wh: 20 Percent of Wound Black/Brown: 10 Wound Drainage Description: Serosanguineous Wound Drainage Amount: Moderate Wound Drainage Odor: None/Absent - no foul odor noted Tissue Surrounding Wound: Macerated Wound General Appearance: Reddened, Draining, Necrotic, Bone Palpable - placed protective adaptic layer over bone Wound Comment # 1 left heel diabetic ulcer. Cleansed and placed wound vac as per MD ordered. intact flowing well with proper settings , no leaks present. Recommendation -Pt is under the care of Dr Velasquez. Please follow MD's order for left heel. -Keep clean and dry -Turn and reposition -Offload both heels -Heel protector on both heels -Optimize nutrition -Assess and f/u accordingly for any changes JAILYN TUCKER Oct 17, 2017 16:13
--- NOTE | 2017-10-17 16:14 | Diagnostic Imaging Report ---
Indications: Needs long-term IV access Technique: Ultrasound confirms patent compressible left brachial vein. Total sterile technique, including sterile probe cover and sterile gel, hat, mask,, sterile gown, large sterile drape, and preparation with 2% chlorhexidine utilized. Local anesthesia with 1% lidocaine. Under real-time ultrasound guidance, puncture brachial vein using 21-gauge needle, documented and archived, passage 0.018 guidewire under direct fluoroscopy, which was used to determine appropriate catheter length, exchange for 5 [place] peel-away sheath. 5 [place] Bard dual-lumen power PICC cut to 46 cm. It was inserted through the peel-away sheath. Peel-away sheath and guidewire removed. Catheter fixed to the skin. Both catheter ports aspirated and flushed. Patient tolerated procedure well, without immediate complication. Digital radiograph documents satisfactory catheter tip position, at the cavoatrial junction. Total fluoroscopy time 0.6 minutes. Total dose area product 17 dGycm2 Impression: Successful placement of left arm PICC under sonographic and fluoroscopic guidance, as described above.
[2017-10-17] MEDS: Hydromorphone 0.5mg/0.5ml inj IVP PRN (16:23)
--- NOTE | 2017-10-17 16:25 | Podiatric Progress Note ---
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 Will continue with limb salvage. Will hold discharge until SNF has VAC in house. 2) Dilaudid for pain management 3) Abx per ID - VRE. 4) Will follow Subjective Allergies: Coded Allergies: GABAPENTIN (Verified Allergy, Unknown, 10/11/17) OLIVE OIL (Verified Adverse Reaction, Severe, SPASM IN THE COLON, 01/18/14) PREGABALIN (Verified Adverse Reaction, Intermediate, "hypernervous", ) ACETAMINOPHEN (Verified Adverse Reaction, Mild, IRRITABILITY AND ELEVATED BLOOD PRESSURE, 01/18/14) IBUPROFEN (Verified Adverse Reaction, Mild, IRRITABILITY AND ELEVATED BLOOD PRESSURE, 01/18/14) Uncoded Allergies: SSRI (Allergy, Unknown, 10/11/17) Subjective Patient is in good spirits, although he admits to giving nursing staff a hard time. He has pain but will not admit how much pain he is having. Objective Exam Last 24 Hour Vital Signs Date Time Temp Pulse Resp B/P (MAP) Pulse Ox O2 Delivery O2 Flow Rate FiO2 10/17/17 12:00 98.1 67 18 122/58 98 Room Air 98.1 10/17/17 04:00 98.0 88 19 113/68 98 Room Air 98.0 10/17/17 00:00 98.2 86 18 113/70 97 Room Air 98.2 10/16/17 20:00 98.0 88 18 111/60 96 Room Air 98.0 Laboratory Tests Test 10/17/17 12:45 Urine Color Pale yellow Urine Appearance Cloudy Urine pH 5 (4.5-8.0) Urine Specific [place] 1.015 (1.005-1.035) Urine Protein 3+ (NEGATIVE) H Urine Glucose (UA) Negative (NEGATIVE) Urine Ketones Negative (NEGATIVE) Urine Occult Blood 3+ (NEGATIVE) H Urine Nitrite Negative (NEGATIVE) Urine Bilirubin Negative (NEGATIVE) Urine Urobilinogen Normal MG/DL (0.0-1.0) Urine Leukocyte Esterase 3+ (NEGATIVE) H Urine RBC 2-4 /HPF (0 - 0) H Urine WBC Tntc /HPF (0 - 0) H Urine Squamous Epithelial Cells Occasional /LPF Urine Bacteria Occasional /HPF (NONE) Microbiology Date/Time Source Procedure Growth Status 10/14/17 08:50 Blood Blood Culture - Preliminary NO GROWTH AFTER 48 HOURS Resulted 10/11/17 17:00 Nasal Nares MRSA Culture - Final NO METHICILLIN RESISTANT STAPH AUREUS... Complete 10/12/17 06:45 Urine,Clean Catch Urine Culture - Final Gram Positive Cocci Complete 10/13/17 19:20 Foot Left Gram Stain - Final Resulted 10/13/17 19:20 Aerobic Culture - Final Klebsiella Pneumoniae Proteus Mirabilis Enterococcus Faecium - Vre Resulted 10/13/17 19:20 Foot Left Anaerobic Culture - Preliminary Resulted Dermatological Wound Assessment : Exudate Amount: Moderate Dermatological Narrative Left heel wound VAC has been placed. LLE edematous and erythema shows darkening Raymundo Velasquez DPM Oct 17, 2017 16:25
--- NOTE | 2017-10-17 16:56 | General Progress Note ---
Assessment/Plan Problem List: (1) Gram-negative bacteremia ICD Codes: R78.81 - Bacteremia SNOMED: 529088768826 (2) Sepsis ICD Codes: A41.9 - Sepsis, unspecified organism SNOMED: 59089546 (3) Progressive osteomyelitis of the posterior calcaneus (4) Cellulitis of left lower extremity ICD Codes: L03.116 - Cellulitis of left lower limb SNOMED: 165433928 (5) L heel diabetic ulcer with concern for osteomyelitis (6) Complete tear with retraction of the calcaneal tendon (7) MISHEL on CKD (8) CKD stage 3 (9) DM2 (diabetes mellitus, type 2) Assessment & Plan: A1C 9.9 ICD Codes: E11.9 - Type 2 diabetes mellitus without complications SNOMED: 19093192 (10) HTN (hypertension) ICD Codes: I10 - Essential (primary) hypertension SNOMED: 64665887 (11) Diabetic neuropathy ICD Codes: E11.40 - Type 2 diabetes mellitus with diabetic neuropathy, unspecified SNOMED: 16380567, 206836879, 174877973 (12) Diabetic nephropathy ICD Codes: E11.21 - Type 2 diabetes mellitus with diabetic nephropathy SNOMED: 37213494, 515428807 Qualifiers: Qualified Codes: E11.21 - Type 2 diabetes mellitus with diabetic nephropathy (13) Hyponatremia ICD Codes: E87.1 - Hypo-osmolality and hyponatremia SNOMED: 74391085 (14) Chronic diabetic ulcer right foot Status: stable Assessment/Plan Podiatry, ID, renal consulted s/p vanco (10/11-10/16) Cont meropenem (10/14-) Start daptomycin 8mg/kg for VRE (10/17-) Will need total of 6 weeks of IV abx per ID given osteomyelitis s/p cefepime and flagyl (10/11-10/14) F/u cultures--blood culture showing GNR, wound culture showing Klebsiella and Proteus F/u repeat blood cultures--ngtd PICC line placed 10/17/17 Wound care per podiatry Check MRI L foot--shows progressive osteomyelitis, heel ulceration, soft tissue gas, complete tear of Achilles tendon s/p incision and drainage left foot, excisional debridement to the level of muscle left foot, and partial calcanectomy left foot on 10/13/17 NWB LLE IVFs given MISHEL Avoid nephrotoxins Check renal U/S--shows bladder volume 337mL, refused connolly Flomax 0.4mg BID + finasteride 5mg daily Check TTE--EF 55-60% Pain control, bowel regimen Supportive care Cont SNF meds but hold lasix, MTF for now ZENIA RODARTE planning to SNF tomorrow once wound vac delivered to SNF DVT Prophylaxis: HSQ Code Status: Full Hospital Classification Declaration: Based on this initial evaluation, and depending on the patient's clinical course, I anticipate that this patient will require hospitalization for 1-2 days for LLE cellulitis, L heel diabetic ulcer w / concern for osteo, and close respiratory/hemodynamic monitoring. Disposition: Once the patient is stable to leave the hospital, I anticipate the patient will likely be discharged to the following environment: back to SNF Discussed with patient/family, nursing staff, SW/CM, podiatry, ID regarding clinical status, treatment course, and disposition planning. D/w ID re abx on d/ c, PICC. D/w podiatry re wound vac, d/c plan Time of note may not reflect time of encounter Subjective Date patient seen: Oct 17, 2017 Time patient seen: 16:56 ROS Limited/Unobtainable: No Constitutional: Reports: weakness HEENT: Reports: no symptoms Cardiovascular: Reports: no symptoms Respiratory: Reports: no symptoms Gastrointestinal/Abdominal: Reports: no symptoms Genitourinary: Reports: no symptoms Neurologic/Psychiatric: Reports: no symptoms Endocrine: Reports: no symptoms Hematologic/Lymphatic: Reports: no symptoms Allergies: Coded Allergies: GABAPENTIN (Verified Allergy, Unknown, 10/11/17) OLIVE OIL (Verified Adverse Reaction, Severe, SPASM IN THE COLON, 01/18/14) PREGABALIN (Verified Adverse Reaction, Intermediate, "hypernervous", ) ACETAMINOPHEN (Verified Adverse Reaction, Mild, IRRITABILITY AND ELEVATED BLOOD PRESSURE, 01/18/14) IBUPROFEN (Verified Adverse Reaction, Mild, IRRITABILITY AND ELEVATED BLOOD PRESSURE, 01/18/14) Uncoded Allergies: SSRI (Allergy, Unknown, 10/11/17) Subjective No acute o/n events MRI L foot shows progressive osteomyelitis, heel ulcer, soft tissue gas, complete tear of Achilles tendon s/p incision and drainage left foot, excisional debridement to the level of muscle left foot, and partial calcanectomy left foot POD#4 Blood cultures growing Bacterioides fragilis. Repeat blood cultures neg Wound culture showing proteus and klebsiella--now also showing VRE. D/w ID and pt started on daptomycin Awaiting wound vac delivery to SNF prior to d/c Pt c/o foot pain. Lethargic, some chills. Denies n/v, d/c, chest pain, SOB, abd pain Objective Last 24 Hour Vital Signs Date Time Temp Pulse Resp B/P (MAP) Pulse Ox O2 Delivery O2 Flow Rate FiO2 10/17/17 12:00 98.1 67 18 122/58 98 Room Air 98.1 10/17/17 04:00 98.0 88 19 113/68 98 Room Air 98.0 10/17/17 00:00 98.2 86 18 113/70 97 Room Air 98.2 10/16/17 20:00 98.0 88 18 111/60 96 Room Air 98.0 Intake and Output 10/16/17 10/17/17 19:00 07:00 Intake Total 450 ml 240 ml Output Total 831 ml Balance -381 ml 240 ml Intake Oral 450 ml 240 ml Output Urine Total 450 ml Post Void Residual 381 ml Bladder Scan Volume Amount > 300 ml # Voids 1 1 Laboratory Tests 10/17/17 12:45: Urine Color Pale yellow, Urine Appearance Cloudy, Urine pH 5, Urine Specific [place] 1.015, Urine Protein 3+H, Urine Glucose (UA) Negative, Urine Ketones Negative, Urine Occult Blood 3+H, Urine Nitrite Negative, Urine Bilirubin Negative, Urine Urobilinogen Normal, Urine Leukocyte Esterase 3+H, Urine RBC 2- 4H, Urine WBC TntcH, Urine Squamous Epithelial Cells Occasional, Urine Bacteria Occasional Height (Feet): 5 Height (Inches): 8.00 Weight (Pounds): 185 Objective General: alert, cooperative, no distress, appears stated age Head: normocephalic, without obvious abnormality, atraumatic Eyes: conjunctivae/corneas clear. PERRL, EOM's intact Throat: lips, mucosa, and tongue normal. MMM Neck: supple, symmetrical, trachea midline, and no JVD Lungs: clear to auscultation bilaterally Heart: regular rate and rhythm, S1, S2 normal, no murmur, click, rub or gallop Abdomen: soft, non-tender, non-distended, bowel sounds normal Extremities: extremities normal, atraumatic, no cyanosis, 1-2+ pitting edema BLE Pulses: 2+ and symmetric Skin: Left heel full-thickness ulceration which probes to bone, +erythema/edema/ warmth, +purulent drainage Right plantar midfoot with full-thickness ulceration measuring 1 cm in diameter with granular wound base.There is no erythema, drainage, fluctuance, or malodor Neurologic: grossly normal, no focal deficits Conner Orozco M.D. Oct 17, 2017 16:56
[2017-10-17] MEDS: NS IV SCH (18:05)
[2017-10-17] MEDS: DAPTOMYCIN IV SCH (18:05)
[2017-10-17] MEDS: Levemir Flexpen SUBQ SCH (18:07)
[2017-10-17 20:00] VITALS: BP 159/77
[2017-10-17] MEDS: Dakin's 0.125% Soln (Quarter Strength) 16oz TOPIC SCH ×2 (21:00→22:15)
--- NOTE | 2017-10-17 21:52 | Infectious Diseases Prog Note ---
Assessment/Plan Assessment/Plan ASSESSMENT AND PLAN: 1. bacteroides bacteremia, proteus/klebsiella/vre left heel/foot wound infection and osteomyelitis on MRI, sepsis, leukocytosis, uti - s/p debridement - leukocytosis persists, continue to monitor - f/u on urine culture, f/u labs - change abx to invanz/daptomycin iv daily for 5 weeks to complete 6 week course of abx - d/w Dr. Prieto - d/w pharmacy about abx dosing - vre colonized 2. Elevated creatinine, chronic renal failure, acute kidney injury. 3. Anemia. 4. The patient with history of diabetes. 5. Hypertension. 6. Blood sugar and blood pressure treatment per primary. 7. Benign prostatic hypertrophy. 8. Atherosclerotic cardiovascular disease. 9. Chronic diastolic congestive heart failure. 10. Anemia. 11. Dizziness, headaches, weakness, and fatigue. 12. Allergies, acetaminophen, gabapentin, ibuprofen, Elavil, pregabalin, and selective serotonin reuptake inhibitors. 13. Social history negative. 14. Family history noncontributory. 15. MAR was noted. 16. Case discussed with RN. 17. Continue treatment per primary consultants. 18. Orders were entered. 19. Notes and records noted. Subjective Constitutional: Denies: fever HEENT: Denies: congestion Respiratory: Denies: shortness of breath Cardiovascular: Denies: chest pain Gastrointestinal/Abdominal: Denies: nausea, vomiting, diarrhea Genitourinary: Denies: dysuria Neurologic: Denies: headache Psychiatric: Denies: depression Skin: Denies: rash Hematologic: Denies: bleeding Musculoskeletal: Reports: pain Allergies: Coded Allergies: GABAPENTIN (Verified Allergy, Unknown, 10/11/17) OLIVE OIL (Verified Adverse Reaction, Severe, SPASM IN THE COLON, 01/18/14) PREGABALIN (Verified Adverse Reaction, Intermediate, "hypernervous", ) ACETAMINOPHEN (Verified Adverse Reaction, Mild, IRRITABILITY AND ELEVATED BLOOD PRESSURE, 01/18/14) IBUPROFEN (Verified Adverse Reaction, Mild, IRRITABILITY AND ELEVATED BLOOD PRESSURE, 01/18/14) Uncoded Allergies: SSRI (Allergy, Unknown, 10/11/17) Objective Vital Signs Last 24 Hour Vital Signs Date Time Temp Pulse Resp B/P (MAP) Pulse Ox O2 Delivery O2 Flow Rate FiO2 10/17/17 20:00 98.7 75 21 159/77 95 98.7 10/17/17 16:00 98.0 81 20 135/63 95 98.0 10/17/17 16:00 98.0 81 20 135/63 95 Room Air 98.0 10/17/17 12:00 98.1 67 18 122/58 98 Room Air 98.1 10/17/17 04:00 98.0 88 19 113/68 98 Room Air 98.0 10/17/17 00:00 98.2 86 18 113/70 97 Room Air 98.2 Height (Feet): 5 Height (Inches): 8.00 Weight (Pounds): 185 General Appearance: no acute distress HEENT: normocephalic, atraumatic, anicteric, mucous membranes moist Respiratory/Chest: lungs clear, normal breath sounds, no respiratory distress, no accessory muscle use Cardiovascular: normal rate, regular rhythm, no gallop/murmur, no JVD Abdomen: normal bowel sounds, soft, non tender, no organomegaly, non distended Genitourinary: other - no connolly Extremities: other - left foot covered, left leg with less cellulitis Skin: no rash 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 No acute process otherwise. MRI left foot and ankle - Impression: Positive for progressive osteomyelitis of the posterior calcaneus, since prior study of 08/02/2017 Increasing ulceration of the overlying soft tissues, with possible exposure of the medial aspect of the calcaneal tuberosity. Small amount of gas within the medial soft tissues,. The related open wound or could indicate infection by gas-forming organism Complete tear with retraction of the calcaneal tendon, as described. Fluid in the tibiotalar joint. Probably reactive secondary to the above Diffuse edema of the subcutaneous fat. This could be due to cellulitis or could be related to hemodynamic abnormalities Other findings as noted Findings discussed by phone with Dr. Prieto at the time of interpretation Microbiology Date/Time Source Procedure Growth Status 10/14/17 08:50 Blood Blood Culture - Preliminary NO GROWTH AFTER 48 HOURS Resulted 10/11/17 17:00 Nasal Nares MRSA Culture - Final NO METHICILLIN RESISTANT STAPH AUREUS... Complete 10/12/17 06:45 Urine,Clean Catch Urine Culture - Final Gram Positive Cocci Complete 10/13/17 19:20 Foot Left Gram Stain - Final Resulted 10/13/17 19:20 Aerobic Culture - Final Klebsiella Pneumoniae Proteus Mirabilis Enterococcus Faecium - Vre Resulted 10/13/17 19:20 Foot Left Anaerobic Culture - Preliminary Resulted Labs Test 10/15/17 06:20 10/15/17 18:00 10/16/17 14:25 10/17/17 12:45 White Blood Count 14.5 K/UL (4.8-10.8) 15.7 K/UL (4.8-10.8) Red Blood Count 3.99 M/UL (4.70-6.10) 3.57 M/UL (4.70-6.10) Hemoglobin 10.6 G/DL (14.2-18.0) 9.3 G/DL (14.2-18.0) Hematocrit 32.2 % (42.0-52.0) 28.6 % (42.0-52.0) Mean Corpuscular Volume 80 FL (80-99) 80 FL (80-99) Mean Corpuscular Hemoglobin 26.6 PG (27.0-31.0) 26.2 PG (27.0-31.0) Mean Corpuscular Hemoglobin Concent 33.1 G/DL (32.0-36.0) 32.6 G/DL (32.0-36.0) Red Cell Distribution Width 15.0 % (11.6-14.8) 14.9 % (11.6-14.8) Platelet Count 493 K/UL (150-450) 476 K/UL (150-450) Mean Platelet Volume 5.3 FL (6.5-10.1) 5.4 FL (6.5-10.1) Neutrophils (%) (Auto) 75.2 % (45.0-75.0) 82.1 % (45.0-75.0) Lymphocytes (%) (Auto) 12.7 % (20.0-45.0) 8.7 % (20.0-45.0) Monocytes (%) (Auto) 5.5 % (1.0-10.0) 5.9 % (1.0-10.0) Eosinophils (%) (Auto) 5.9 % (0.0-3.0) 2.9 % (0.0-3.0) Basophils (%) (Auto) 0.7 % (0.0-2.0) 0.5 % (0.0-2.0) Sodium Level 134 MMOL/L (136-145) 137 MMOL/L (136-145) Potassium Level 4.4 MMOL/L (3.5-5.1) 4.6 MMOL/L (3.5-5.1) Chloride Level 104 MMOL/L (98-107) 106 MMOL/L (98-107) Carbon Dioxide Level 22 MMOL/L (21-32) 24 MMOL/L (21-32) Anion Gap 8 mmol/L (5-15) 7 mmol/L (5-15) Blood Urea Nitrogen 33 mg/dL (7-18) 28 mg/dL (7-18) Creatinine 1.5 MG/DL (0.55-1.30) 1.6 MG/DL (0.55-1.30) Estimat Glomerular Filtration Rate mL/min (>60) mL/min (>60) Glucose Level 197 MG/DL (74-106) 259 MG/DL (74-106) Calcium Level 8.3 MG/DL (8.5-10.1) 8.2 MG/DL (8.5-10.1) Vancomycin Level Trough 21.5 ug/mL (5.0-12.0) Urine Color Pale yellow Urine Appearance Cloudy Urine pH 5 (4.5-8.0) Urine Specific [place] 1.015 (1.005-1.035) Urine Protein 3+ (NEGATIVE) Urine Glucose (UA) Negative (NEGATIVE) Urine Ketones Negative (NEGATIVE) Urine Occult Blood 3+ (NEGATIVE) Urine Nitrite Negative (NEGATIVE) Urine Bilirubin Negative (NEGATIVE) Urine Urobilinogen Normal MG/DL (0.0-1.0) Urine Leukocyte Esterase 3+ (NEGATIVE) Urine RBC 2-4 /HPF (0 - 0) Urine WBC Tntc /HPF (0 - 0) Urine Squamous Epithelial Cells Occasional /LPF Urine Bacteria Occasional /HPF (NONE) Laboratory Tests Test 10/17/17 12:45 Urine Color Pale yellow Urine Appearance Cloudy Urine pH 5 (4.5-8.0) Urine Specific [place] 1.015 (1.005-1.035) Urine Protein 3+ (NEGATIVE) H Urine Glucose (UA) Negative (NEGATIVE) Urine Ketones Negative (NEGATIVE) Urine Occult Blood 3+ (NEGATIVE) H Urine Nitrite Negative (NEGATIVE) Urine Bilirubin Negative (NEGATIVE) Urine Urobilinogen Normal MG/DL (0.0-1.0) Urine Leukocyte Esterase 3+ (NEGATIVE) H Urine RBC 2-4 /HPF (0 - 0) H Urine WBC Tntc /HPF (0 - 0) H Urine Squamous Epithelial Cells Occasional /LPF Urine Bacteria Occasional /HPF (NONE) Current Medications Medications (Trade) Dose Ordered Sig/Dari Route PRN Reason Start Time Stop Time Status Last Admin Dose Admin Acetaminophen (Tylenol) 650 mg Q4H PRN ORAL Mild Pain (Scale 1-3), fever 10/11/17 16:45 11/10/17 16:44 Amlodipine Besylate (Norvasc) 2.5 mg DAILY ORAL 10/17/17 09:00 11/16/17 08:59 Bisacodyl (Dulcolax) 10 mg HSPRN PRN RECTAL Constipation 10/11/17 17:15 11/10/17 17:14 Chlorhexidine Gluconate (Sarah-Hex 2%) 1 applic DAILY@2000 TOPIC 10/17/17 20:00 11/16/17 19:59 Clotrimazole (Lotrimin) 1 applic EVERY 12 HOURS TOPIC 10/14/17 21:00 11/13/17 20:59 10/16/17 22:37 Daptomycin 670 mg/ Sodium Chloride 110 ml @ 220 mls/hr Q24H IV 10/17/17 17:00 10/24/17 16:59 10/17/17 18:05 Dextrose (Dextrose 50%) STAT PRN IV Hypoglycemia 10/11/17 16:45 11/10/17 16:44 Docusate Sodium (Colace) 100 mg TID ORAL 10/12/17 13:30 11/10/17 13:29 10/13/17 09:34 Doxazosin Mesylate (Cardura) 1 mg TID ORAL 10/16/17 13:00 11/15/17 12:59 Ertapenem 1 gm/ Sodium Chloride 55 ml @ 110 mls/hr Q24H IVPB 10/16/17 16:00 10/21/17 15:59 10/17/17 15:52 Finasteride (Proscar) 5 mg DAILY ORAL 10/12/17 09:00 11/11/17 08:59 10/16/17 09:04 Heparin Sodium (Porcine) (Heparin 5000 units/ml) 5,000 units EVERY 12 HOURS SUBQ 10/11/17 21:00 11/10/17 20:59 10/16/17 22:43 Hydromorphone HCl (Dilaudid) 0.5 mg Q6HR PRN IVP Pain Scale (6-10) 10/15/17 07:15 10/22/17 07:14 10/17/17 16:23 Insulin Aspart (NovoLOG) BEFORE MEALS AND HS SUBQ 10/11/17 21:00 11/10/17 20:59 10/17/17 16:30 Insulin Detemir (Levemir) 12 units Q24H SUBQ 10/16/17 18:00 11/15/17 17:59 10/17/17 18:07 Mirtazapine (Remeron) 15 mg BEDTIME ORAL 10/11/17 21:00 11/10/17 20:59 10/16/17 22:25 Ondansetron HCl (Zofran) 4 mg Q6H PRN IVP Nausea & Vomiting 10/11/17 16:45 11/10/17 16:44 Oxycodone HCl (OxyCONTIN) 10 mg Q8HR ORAL 10/11/17 22:00 10/18/17 21:59 10/17/17 05:58 Oxycodone HCl (Roxicodone) 5 mg Q4H PRN ORAL moderate pain 10/11/17 16:45 10/18/17 16:44 Oxycodone HCl (Roxicodone) 10 mg Q4H PRN ORAL severe pain 10/11/17 16:45 10/18/17 16:44 10/17/17 10:43 Polyethylene Glycol (Miralax) 17 gm HSPRN PRN ORAL Constipation 10/11/17 16:45 11/10/17 16:44 Risperidone (RisperDAL) 1 mg BEDTIME ORAL 10/14/17 21:00 11/13/17 20:59 10/16/17 22:25 Sodium Hypochlorite (Dakin's Quarter Strength) 1 applic DAILY@2100 TOPIC 10/15/17 21:00 11/14/17 20:59 10/16/17 22:28 Tamsulosin HCl (Flomax) 0.4 mg BID ORAL 10/12/17 13:30 11/10/17 13:29 10/16/17 09:03 Vitamin B Complex/ Vit C/Folic Acid (Nephrovite) 1 tab DAILY ORAL 10/12/17 09:00 11/11/17 08:59 10/15/17 09:37 Vitamin D (Vitamin D) 2,000 intlu DAILY ORAL 10/12/17 09:00 11/11/17 08:59 10/15/17 09:37 LARON HERNANDEZ Oct 17, 2017 21:51
[2017-10-17] MEDS: Dyna-Hex 2% Top Sol 2oz TOPIC SCH (22:06)
--- NOTE | 2017-10-17 22:34 | General Progress Note ---
Assessment/Plan Status: stable Assessment/Plan Dementia with behavior disturbance and agitation. lacks capacity to make decisions lacks capacity to refuse meds PLAN: 1. Continue risperidone 1 mg at bedtime. 2. Continue Remeron 15 at bedtime. 3. Continue to follow and readjust the medications. Subjective Date patient seen: Oct 17, 2017 Neurologic/Psychiatric: Reports: anxiety, depressed, emotional problems Allergies: Coded Allergies: GABAPENTIN (Verified Allergy, Unknown, 10/11/17) OLIVE OIL (Verified Adverse Reaction, Severe, SPASM IN THE COLON, 01/18/14) PREGABALIN (Verified Adverse Reaction, Intermediate, "hypernervous", ) ACETAMINOPHEN (Verified Adverse Reaction, Mild, IRRITABILITY AND ELEVATED BLOOD PRESSURE, 01/18/14) IBUPROFEN (Verified Adverse Reaction, Mild, IRRITABILITY AND ELEVATED BLOOD PRESSURE, 01/18/14) Uncoded Allergies: SSRI (Allergy, Unknown, 10/11/17) Subjective episodes of confusion. noncompliant Objective Last 24 Hour Vital Signs Date Time Temp Pulse Resp B/P (MAP) Pulse Ox O2 Delivery O2 Flow Rate FiO2 10/17/17 20:00 98.7 75 21 159/77 95 98.7 10/17/17 16:00 98.0 81 20 135/63 95 98.0 10/17/17 16:00 98.0 81 20 135/63 95 Room Air 98.0 10/17/17 12:00 98.1 67 18 122/58 98 Room Air 98.1 10/17/17 04:00 98.0 88 19 113/68 98 Room Air 98.0 10/17/17 00:00 98.2 86 18 113/70 97 Room Air 98.2 Intake and Output 10/16/17 10/17/17 19:00 07:00 Intake Total 450 ml 240 ml Output Total 831 ml Balance -381 ml 240 ml Intake Oral 450 ml 240 ml Output Urine Total 450 ml Post Void Residual 381 ml Bladder Scan Volume Amount > 300 ml # Voids 1 1 Laboratory Tests 10/17/17 12:45: Urine Color Pale yellow, Urine Appearance Cloudy, Urine pH 5, Urine Specific [place] 1.015, Urine Protein 3+H, Urine Glucose (UA) Negative, Urine Ketones Negative, Urine Occult Blood 3+H, Urine Nitrite Negative, Urine Bilirubin Negative, Urine Urobilinogen Normal, Urine Leukocyte Esterase 3+H, Urine RBC 2- 4H, Urine WBC TntcH, Urine Squamous Epithelial Cells Occasional, Urine Bacteria Occasional Height (Feet): 5 Height (Inches): 8.00 Weight (Pounds): 185 General Appearance: no apparent distress, alert, confused, agitated Neurologic: alert, responsive, disoriented, depressed affect Milton Lancaster M.D. Oct 17, 2017 22:34
--- NOTE | 2017-10-17 22:36 | Psych Consult Progress Note ---
Psych Consult Progress Note Consult 10/16/17 Vital Signs Last 24 Hour Vital Signs Date Time Temp Pulse Resp B/P (MAP) Pulse Ox O2 Delivery O2 Flow Rate FiO2 10/17/17 20:00 98.7 75 21 159/77 95 98.7 10/17/17 16:00 98.0 81 20 135/63 95 98.0 10/17/17 16:00 98.0 81 20 135/63 95 Room Air 98.0 10/17/17 12:00 98.1 67 18 122/58 98 Room Air 98.1 10/17/17 04:00 98.0 88 19 113/68 98 Room Air 98.0 10/17/17 00:00 98.2 86 18 113/70 97 Room Air 98.2 Labs Laboratory Tests Test 10/17/17 12:45 Urine Color Pale yellow Urine Appearance Cloudy Urine pH 5 (4.5-8.0) Urine Specific [place] 1.015 (1.005-1.035) Urine Protein 3+ (NEGATIVE) H Urine Glucose (UA) Negative (NEGATIVE) Urine Ketones Negative (NEGATIVE) Urine Occult Blood 3+ (NEGATIVE) H Urine Nitrite Negative (NEGATIVE) Urine Bilirubin Negative (NEGATIVE) Urine Urobilinogen Normal MG/DL (0.0-1.0) Urine Leukocyte Esterase 3+ (NEGATIVE) H Urine RBC 2-4 /HPF (0 - 0) H Urine WBC Tntc /HPF (0 - 0) H Urine Squamous Epithelial Cells Occasional /LPF Urine Bacteria Occasional /HPF (NONE) Medications Current Medications Medications (Trade) Dose Ordered Sig/Dari Route PRN Reason Start Time Stop Time Status Last Admin Dose Admin Acetaminophen (Tylenol) 650 mg Q4H PRN ORAL Mild Pain (Scale 1-3), fever 10/11/17 16:45 11/10/17 16:44 Amlodipine Besylate (Norvasc) 2.5 mg DAILY ORAL 10/17/17 09:00 11/16/17 08:59 Bisacodyl (Dulcolax) 10 mg HSPRN PRN RECTAL Constipation 10/11/17 17:15 11/10/17 17:14 Chlorhexidine Gluconate (Sarah-Hex 2%) 1 applic DAILY@1999 TOPIC 10/17/17 20:00 11/16/17 19:59 10/17/17 22:06 Clotrimazole (Lotrimin) 1 applic EVERY 12 HOURS TOPIC 10/14/17 21:00 11/13/17 20:59 10/17/17 22:15 Daptomycin 670 mg/ Sodium Chloride 110 ml @ 220 mls/hr Q24H IV 10/17/17 17:00 10/24/17 16:59 10/17/17 18:05 Dextrose (Dextrose 50%) STAT PRN IV Hypoglycemia 10/11/17 16:45 11/10/17 16:44 Docusate Sodium (Colace) 100 mg TID ORAL 10/12/17 13:30 11/10/17 13:29 10/13/17 09:34 Doxazosin Mesylate (Cardura) 1 mg TID ORAL 10/16/17 13:00 11/15/17 12:59 Ertapenem 1 gm/ Sodium Chloride 55 ml @ 110 mls/hr Q24H IVPB 10/16/17 16:00 10/21/17 15:59 10/17/17 15:52 Finasteride (Proscar) 5 mg DAILY ORAL 10/12/17 09:00 11/11/17 08:59 10/16/17 09:04 Heparin Sodium (Porcine) (Heparin 5000 units/ml) 5,000 units EVERY 12 HOURS SUBQ 10/11/17 21:00 11/10/17 20:59 10/17/17 22:12 Hydromorphone HCl (Dilaudid) 0.5 mg Q6HR PRN IVP Pain Scale (6-10) 10/15/17 07:15 10/22/17 07:14 10/17/17 16:23 Insulin Aspart (NovoLOG) BEFORE MEALS AND HS SUBQ 10/11/17 21:00 11/10/17 20:59 10/17/17 22:11 Insulin Detemir (Levemir) 12 units Q24H SUBQ 10/16/17 18:00 11/15/17 17:59 10/17/17 18:07 Mirtazapine (Remeron) 15 mg BEDTIME ORAL 10/11/17 21:00 11/10/17 20:59 10/17/17 22:06 Ondansetron HCl (Zofran) 4 mg Q6H PRN IVP Nausea & Vomiting 10/11/17 16:45 11/10/17 16:44 Oxycodone HCl (OxyCONTIN) 10 mg Q8HR ORAL 10/11/17 22:00 10/18/17 21:59 10/17/17 22:07 Oxycodone HCl (Roxicodone) 5 mg Q4H PRN ORAL moderate pain 10/11/17 16:45 10/18/17 16:44 Oxycodone HCl (Roxicodone) 10 mg Q4H PRN ORAL severe pain 10/11/17 16:45 10/18/17 16:44 10/17/17 10:43 Polyethylene Glycol (Miralax) 17 gm HSPRN PRN ORAL Constipation 10/11/17 16:45 11/10/17 16:44 Risperidone (RisperDAL) 1 mg BEDTIME ORAL 10/14/17 21:00 11/13/17 20:59 10/17/17 22:06 Sodium Hypochlorite (Dakin's Quarter Strength) 1 applic DAILY@2100 TOPIC 10/15/17 21:00 11/14/17 20:59 10/17/17 22:15 Tamsulosin HCl (Flomax) 0.4 mg BID ORAL 10/12/17 13:30 11/10/17 13:29 10/16/17 09:03 Vitamin B Complex/ Vit C/Folic Acid (Nephrovite) 1 tab DAILY ORAL 10/12/17 09:00 11/11/17 08:59 10/15/17 09:37 Vitamin D (Vitamin D) 2,000 intlu DAILY ORAL 10/12/17 09:00 11/11/17 08:59 10/15/17 09:37 Problems: (1) Dementia with behavioral disturbance Assessment & Plan: Dementia with behavior disturbance and agitation. lacks capacity to make decisions lacks capacity to refuse meds PLAN: 1. Continue risperidone 1 mg at bedtime. 2. Continue Remeron 15 at bedtime. 3. Continue to follow and readjust the medications. Milton Lancaster M.D. Oct 17, 2017 22:35
--- NOTE | 2017-10-17 23:41 | General Progress Note ---
Assessment/Plan Assessment/Plan 1. Anemia due to underlying chronic disease. --> Continue to closely monitor. Hemoglobin goal is above 7 --> anemia workup reviewed. Iron 9, TIBC 127, B12 1791, Folate 41 --> Hemoglobin downtrended from yesterday, remains above goal, no blood transfusion required 2. Anemia of iron deficiency, potentially secondary to osteomyelitis. --> Monitor closely. 3. Leukocytosis, status post debridement, gram-negative jasmyn infection noted. --> Wbc count worsened. Remains on meropenem. Monitor closely. --> Infectious Disease Service following. 4. Anemia due to underlying kidney disease. --> Closely monitor, again improving. 5. Thrombocytosis, likely reactive process from underlying anemia, closely monitor for improvement. 6. Elevated creatinine, chronic kidney disease. 7. Diabetes mellitus, on insulin sliding scale as needed as per primary team. 8. Diastolic dysfunction. Subjective Date patient seen: Oct 17, 2017 Constitutional: Denies: no symptoms, chills, diaphoresis, fever, malaise, weakness, other HEENT: Denies: no symptoms, eye pain, blurred vision, tearing, double vision, ear pain, ear discharge, nose pain, nose congestion, throat pain, throat swelling, mouth pain, mouth swelling, other Cardiovascular: Denies: no symptoms, chest pain, edema, irregular heart rate, lightheadedness, palpitations, syncope, other Respiratory: Denies: no symptoms, cough, orthopnea, shortness of breath, SOB with excertion, SOB at rest, sputum, stridor, wheezing, other Gastrointestinal/Abdominal: Denies: no symptoms, abdomen distended, abdominal pain, black stools, tarry stools, blood in stool, constipated, diarrhea, difficulty swallowing, nausea, poor appetite, poor fluid intake, rectal bleeding , vomiting, other Genitourinary: Denies: no symptoms, burning, discharge, frequency, flank pain, hematuria, incontinence, pain, urgency, other Hematologic/Lymphatic: Reports: anemia Allergies: Coded Allergies: GABAPENTIN (Verified Allergy, Unknown, 10/11/17) OLIVE OIL (Verified Adverse Reaction, Severe, SPASM IN THE COLON, 01/18/14) PREGABALIN (Verified Adverse Reaction, Intermediate, "hypernervous", ) ACETAMINOPHEN (Verified Adverse Reaction, Mild, IRRITABILITY AND ELEVATED BLOOD PRESSURE, 01/18/14) IBUPROFEN (Verified Adverse Reaction, Mild, IRRITABILITY AND ELEVATED BLOOD PRESSURE, 01/18/14) Uncoded Allergies: SSRI (Allergy, Unknown, 10/11/17) Subjective Confused and noncompliant. Hgb downtrended from yesterday. Objective Last 24 Hour Vital Signs Date Time Temp Pulse Resp B/P (MAP) Pulse Ox O2 Delivery O2 Flow Rate FiO2 10/17/17 20:00 98.7 75 21 159/77 95 98.7 10/17/17 16:00 98.0 81 20 135/63 95 98.0 10/17/17 16:00 98.0 81 20 135/63 95 Room Air 98.0 10/17/17 12:00 98.1 67 18 122/58 98 Room Air 98.1 10/17/17 04:00 98.0 88 19 113/68 98 Room Air 98.0 10/17/17 00:00 98.2 86 18 113/70 97 Room Air 98.2 Intake and Output 10/16/17 10/17/17 19:00 07:00 Intake Total 450 ml 240 ml Output Total 831 ml Balance -381 ml 240 ml Intake Oral 450 ml 240 ml Output Urine Total 450 ml Post Void Residual 381 ml Bladder Scan Volume Amount > 300 ml # Voids 1 1 Laboratory Tests 10/17/17 12:45: Urine Color Pale yellow, Urine Appearance Cloudy, Urine pH 5, Urine Specific [place] 1.015, Urine Protein 3+H, Urine Glucose (UA) Negative, Urine Ketones Negative, Urine Occult Blood 3+H, Urine Nitrite Negative, Urine Bilirubin Negative, Urine Urobilinogen Normal, Urine Leukocyte Esterase 3+H, Urine RBC 2- 4H, Urine WBC TntcH, Urine Squamous Epithelial Cells Occasional, Urine Bacteria Occasional Height (Feet): 5 Height (Inches): 8.00 Weight (Pounds): 185 General Appearance: confused Respiratory/Chest: decreased breath sounds Abdomen: non tender, soft Giovany Wiggins Oct 17, 2017 23:41
[2017-10-18] MEDS: oxyCODONE 5mg IR tab ORAL PRN (02:56)
[2017-10-18 04:00] VITALS: BP 133/62
[2017-10-18 04:41] LABS: EOSINOPHILS % (AUTO) 3.4 % (0.0-3.0); HEMATOCRIT 28.1 % (42.0-52.0); HEMOGLOBIN 9.1 G/DL (14.2-18.0); LYMPHOCYTES % (AUTO) 14.4 % (20.0-45.0); MEAN CORPUSCULAR VOLUME 81 FL (80-99); MONOCYTES % (AUTO) 6.1 % (1.0-10.0); NEUTROPHILS % (AUTO) 75.2 % (45.0-75.0); PLATELET COUNT 439 K/UL (150-450); RED BLOOD COUNT 3.48 M/UL (4.70-6.10); RED CELL DISTRIBUTION WIDTH 14.9 % (11.6-14.8); WHITE BLOOD COUNT 13.8 K/UL (4.8-10.8)
[2017-10-18 05:12] LABS: ALANINE AMINOTRANSFERASE 13 U/L (12-78); ALBUMIN 1.9 G/DL (3.4-5.0); ALBUMIN/GLOBULIN RATIO 0.5 (1.0-2.7); ALKALINE PHOSPHATASE 71 U/L (46-116); ANION GAP 7 mmol/L (5-15); ASPARTATE AMINO TRANSFERASE 11 U/L (15-37); BILIRUBIN,TOTAL 0.4 MG/DL (0.2-1.0); BLOOD UREA NITROGEN 23 mg/dL (7-18); CALCIUM 8.2 MG/DL (8.5-10.1); CARBON DIOXIDE 24 MMOL/L (21-32); CHLORIDE 105 MMOL/L (98-107); CREATININE 1.5 MG/DL (0.55-1.30); PHOSPHORUS 2.4 MG/DL (2.5-4.9); POTASSIUM 4.2 MMOL/L (3.5-5.1); SODIUM 136 MMOL/L (136-145)
[2017-10-18] MEDS: oxyCONTIN 10mg tab ORAL SCH ×2 (05:35→14:00)
[2017-10-18] MEDS: NovoLOG Insulin Flexpen SUBQ SCH ×4 (06:07→21:00)
[2017-10-18 08:00] VITALS: BP 94/69
[2017-10-18] MEDS: Vitamin D 400 INTLU TAB ORAL SCH (08:38)
[2017-10-18] MEDS: Nephrovite tab (Rena-Vite) ORAL SCH (08:38)
[2017-10-18] MEDS: Doxazosin 1mg Tab ORAL SCH ×3 (08:38→17:36)
[2017-10-18] MEDS: Docusate 100mg cap ORAL SCH ×3 (08:38→17:35)
[2017-10-18] MEDS: Tamsulosin 0.4mg cap ORAL SCH ×3 (08:38→17:36)
[2017-10-18] MEDS: Heparin 5000 units/ml inj SUBQ SCH ×2 (08:38→21:00)
[2017-10-18] MEDS: Hydromorphone 0.5mg/0.5ml inj IVP PRN (10:38)
[2017-10-18 12:00] VITALS: BP 140/66
--- NOTE | 2017-10-18 15:17 | Nephrology Progress Note ---
Assessment/Plan Problem List: (1) HTN (hypertension) (2) Diabetes mellitus (3) Ulcer of left heel (4) Renal insufficiency Assessment Foot ulcer, left left leg cellulitis, left heel ulcer, ? osteo, leukocytosis, lgt Renal insufficiency acute vs chronic Cr lowering now 1.5 Urinary retention: REFUSES NG Anemia UTI Plan Avoid Nephrotoxics Keep BP in check monitor renal parameters Anemia henry urine studies flomax start cardura Kidney [facility] Unremarkable kidneys. Negative for hydronephrosis Note inability of the patient to void with a bladder volume of 337 mL 2D echo :Left ventricular ejection fraction estimated to be 55-60%. No evidence of left ventricular hypertrophy. Subjective ROS Limited/Unobtainable: No Objective Objective Last 24 Hour Vital Signs Date Time Temp Pulse Resp B/P (MAP) Pulse Ox O2 Delivery O2 Flow Rate FiO2 10/18/17 12:00 98.5 75 20 140/66 93 Room Air 98.5 10/18/17 08:00 98.4 79 20 94/69 94 Room Air 98.4 10/18/17 04:00 98.2 72 21 133/62 94 98.2 10/17/17 20:00 98.7 75 21 159/77 95 98.7 10/17/17 16:00 98.0 81 20 135/63 95 98.0 10/17/17 16:00 98.0 81 20 135/63 95 Room Air 98.0 Intake and Output 10/17/17 10/18/17 19:00 07:00 Intake Total 940 ml Output Total 300 ml 1090 ml Balance 640 ml -1090 ml Intake Oral 940 ml Output Urine Total 1050 ml Post Void Residual 300 ml Drainage Total 40 ml Bladder Scan Volume Amount <10 ml # Voids 11 Laboratory Tests 10/18/17 04:00: White Blood Count 13.8H, Red Blood Count 3.48L, Hemoglobin 9.1L, Hematocrit 28.1L, Mean Corpuscular Volume 81, Mean Corpuscular Hemoglobin 26.2L, Mean Corpuscular Hemoglobin Concent 32.5, Red Cell Distribution Width 14.9H, Platelet Count 439, Mean Platelet Volume 5.1L, Neutrophils (%) (Auto) 75.2H, Lymphocytes (%) (Auto) 14.4L, Monocytes (%) (Auto) 6.1, Eosinophils (%) (Auto) 3.4H, Basophils (%) (Auto) 1.0, Sodium Level 136, Potassium Level 4.2, Chloride Level 105, Carbon Dioxide Level 24, Anion Gap 7, Blood Urea Nitrogen 23H, Creatinine 1.5H, Estimat Glomerular Filtration Rate , Glucose Level 119H, Uric Acid 7.5H, Calcium Level 8.2L, Phosphorus Level 2.4L, Magnesium Level 1.6L, Total Bilirubin 0.4, Aspartate Amino Transf (AST/SGOT) 11L, Alanine Aminotransferase (ALT/SGPT) 13, Alkaline Phosphatase 71, C-Reactive Protein, Quantitative 9.4H, Pro-B-Type Natriuretic Peptide 3992H, Total Protein 6.1L, Albumin 1.9L, Globulin 4.2, Albumin/Globulin Ratio 0.5L Height (Feet): 5 Height (Inches): 8.00 Weight (Pounds): 185 General Appearance: no apparent distress Respiratory/Chest: decreased breath sounds Abdomen: soft, distended Extremities: other - LE swollen Objective no other changes IHSAN REGALADO Oct 18, 2017 15:17
--- NOTE | 2017-10-18 15:51 | Infectious Diseases Prog Note ---
Assessment/Plan Assessment/Plan ASSESSMENT AND PLAN: 1. bacteroides bacteremia, proteus/klebsiella/vre left heel/foot wound infection and osteomyelitis on MRI, sepsis, leukocytosis, uti - s/p debridement - leukocytosis better, continue to monitor wbc - f/u on urine culture, f/u labs - invanz/daptomycin iv daily approximately 5 weeks to complete 6 week course of abx - d/w Dr. Prieto - d/w pharmacy about abx dosing - vre colonized 2. Elevated creatinine, chronic renal failure, acute kidney injury. 3. Anemia. 4. The patient with history of diabetes. 5. Hypertension. 6. Blood sugar and blood pressure treatment per primary. 7. Benign prostatic hypertrophy. 8. Atherosclerotic cardiovascular disease. 9. Chronic diastolic congestive heart failure. 10. Anemia. 11. Dizziness, headaches, weakness, and fatigue. 12. Allergies, acetaminophen, gabapentin, ibuprofen, Elavil, pregabalin, and selective serotonin reuptake inhibitors. 13. Social history negative. 14. Family history noncontributory. 15. MAR was noted. 16. Case discussed with RN. 17. Continue treatment per primary consultants. 18. Orders were entered. 19. Notes and records noted. Subjective Constitutional: Denies: fever HEENT: Denies: congestion Respiratory: Denies: shortness of breath Cardiovascular: Denies: chest pain Gastrointestinal/Abdominal: Denies: nausea, vomiting, diarrhea Genitourinary: Denies: dysuria Neurologic: Denies: headache Psychiatric: Denies: depression Skin: Denies: rash Hematologic: Denies: bleeding Musculoskeletal: Denies: pain Allergies: Coded Allergies: GABAPENTIN (Verified Allergy, Unknown, 10/11/17) OLIVE OIL (Verified Adverse Reaction, Severe, SPASM IN THE COLON, 01/18/14) PREGABALIN (Verified Adverse Reaction, Intermediate, "hypernervous", ) ACETAMINOPHEN (Verified Adverse Reaction, Mild, IRRITABILITY AND ELEVATED BLOOD PRESSURE, 01/18/14) IBUPROFEN (Verified Adverse Reaction, Mild, IRRITABILITY AND ELEVATED BLOOD PRESSURE, 01/18/14) Uncoded Allergies: SSRI (Allergy, Unknown, 10/11/17) Objective Vital Signs Last 24 Hour Vital Signs Date Time Temp Pulse Resp B/P (MAP) Pulse Ox O2 Delivery O2 Flow Rate FiO2 10/18/17 12:00 98.5 75 20 140/66 93 Room Air 98.5 10/18/17 08:00 98.4 79 20 94/69 94 Room Air 98.4 10/18/17 04:00 98.2 72 21 133/62 94 98.2 10/17/17 20:00 98.7 75 21 159/77 95 98.7 10/17/17 16:00 98.0 81 20 135/63 95 98.0 10/17/17 16:00 98.0 81 20 135/63 95 Room Air 98.0 Height (Feet): 5 Height (Inches): 8.00 Weight (Pounds): 185 General Appearance: no acute distress HEENT: normocephalic, atraumatic, anicteric, mucous membranes moist Respiratory/Chest: lungs clear, normal breath sounds, no respiratory distress, no accessory muscle use Cardiovascular: normal rate, regular rhythm, no gallop/murmur, no JVD Abdomen: normal bowel sounds, soft, non tender, no organomegaly, non distended Genitourinary: other - no connolly Extremities: no cyanosis, other - wound covered, left leg cellulitis less Skin: no rash 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 No acute process otherwise. MRI left foot and ankle - Impression: Positive for progressive osteomyelitis of the posterior calcaneus, since prior study of 08/02/2017 Increasing ulceration of the overlying soft tissues, with possible exposure of the medial aspect of the calcaneal tuberosity. Small amount of gas within the medial soft tissues,. The related open wound or could indicate infection by gas-forming organism Complete tear with retraction of the calcaneal tendon, as described. Fluid in the tibiotalar joint. Probably reactive secondary to the above Diffuse edema of the subcutaneous fat. This could be due to cellulitis or could be related to hemodynamic abnormalities Other findings as noted Findings discussed by phone with Dr. Prieto at the time of interpretation Microbiology Date/Time Source Procedure Growth Status 10/14/17 08:50 Blood Blood Culture - Preliminary NO GROWTH AFTER 48 HOURS Resulted 10/11/17 17:00 Nasal Nares MRSA Culture - Final NO METHICILLIN RESISTANT STAPH AUREUS... Complete 10/17/17 12:45 Urine,Clean Catch Urine Culture - Preliminary NO GROWTH Resulted 10/13/17 19:20 Foot Left Gram Stain - Final Resulted 10/13/17 19:20 Aerobic Culture - Final Klebsiella Pneumoniae Proteus Mirabilis Enterococcus Faecium - Vre Resulted 10/13/17 19:20 Foot Left Anaerobic Culture - Preliminary Resulted Microbiology Date/Time Source Procedure Growth Status 10/17/17 12:45 Urine,Clean Catch Urine Culture - Preliminary NO GROWTH Resulted Laboratory Tests Test 10/18/17 04:00 White Blood Count 13.8 K/UL (4.8-10.8) H Red Blood Count 3.48 M/UL (4.70-6.10) L Hemoglobin 9.1 G/DL (14.2-18.0) L Hematocrit 28.1 % (42.0-52.0) L Mean Corpuscular Volume 81 FL (80-99) Mean Corpuscular Hemoglobin 26.2 PG (27.0-31.0) L Mean Corpuscular Hemoglobin Concent 32.5 G/DL (32.0-36.0) Red Cell Distribution Width 14.9 % (11.6-14.8) H Platelet Count 439 K/UL (150-450) Mean Platelet Volume 5.1 FL (6.5-10.1) L Neutrophils (%) (Auto) 75.2 % (45.0-75.0) H Lymphocytes (%) (Auto) 14.4 % (20.0-45.0) L Monocytes (%) (Auto) 6.1 % (1.0-10.0) Eosinophils (%) (Auto) 3.4 % (0.0-3.0) H Basophils (%) (Auto) 1.0 % (0.0-2.0) Sodium Level 136 MMOL/L (136-145) Potassium Level 4.2 MMOL/L (3.5-5.1) Chloride Level 105 MMOL/L (98-107) Carbon Dioxide Level 24 MMOL/L (21-32) Anion Gap 7 mmol/L (5-15) Blood Urea Nitrogen 23 mg/dL (7-18) H Creatinine 1.5 MG/DL (0.55-1.30) H Estimat Glomerular Filtration Rate mL/min (>60) Glucose Level 119 MG/DL (74-106) H Uric Acid 7.5 MG/DL (2.6-7.2) H Calcium Level 8.2 MG/DL (8.5-10.1) L Phosphorus Level 2.4 MG/DL (2.5-4.9) L Magnesium Level 1.6 MG/DL (1.8-2.4) L Total Bilirubin 0.4 MG/DL (0.2-1.0) Aspartate Amino Transf (AST/SGOT) 11 U/L (15-37) L Alanine Aminotransferase (ALT/SGPT) 13 U/L (12-78) Alkaline Phosphatase 71 U/L (46-116) C-Reactive Protein, Quantitative 9.4 mg/dL (0.00-0.90) H Pro-B-Type Natriuretic Peptide 3992 pg/mL (0-125) H Total Protein 6.1 G/DL (6.4-8.2) L Albumin 1.9 G/DL (3.4-5.0) L Globulin 4.2 g/dL Albumin/Globulin Ratio 0.5 (1.0-2.7) L Current Medications Medications (Trade) Dose Ordered Sig/Dari Route PRN Reason Start Time Stop Time Status Last Admin Dose Admin Acetaminophen (Tylenol) 650 mg Q4H PRN ORAL Mild Pain (Scale 1-3), fever 10/11/17 16:45 11/10/17 16:44 Amlodipine Besylate (Norvasc) 2.5 mg DAILY ORAL 10/17/17 09:00 11/16/17 08:59 Bisacodyl (Dulcolax) 10 mg HSPRN PRN RECTAL Constipation 10/11/17 17:15 11/10/17 17:14 Chlorhexidine Gluconate (Sarah-Hex 2%) 1 applic DAILY@1999 TOPIC 10/17/17 20:00 11/16/17 19:59 10/17/17 22:06 Clotrimazole (Lotrimin) 1 applic EVERY 12 HOURS TOPIC 10/14/17 21:00 11/13/17 20:59 10/18/17 09:37 Daptomycin 670 mg/ Sodium Chloride 110 ml @ 220 mls/hr Q24H IV 10/17/17 17:00 10/24/17 16:59 10/17/17 18:05 Dextrose (Dextrose 50%) STAT PRN IV Hypoglycemia 10/11/17 16:45 11/10/17 16:44 Docusate Sodium (Colace) 100 mg TID ORAL 10/12/17 13:30 11/10/17 13:29 10/13/17 09:34 Doxazosin Mesylate (Cardura) 1 mg TID ORAL 10/16/17 13:00 11/15/17 12:59 Ertapenem 1 gm/ Sodium Chloride 55 ml @ 110 mls/hr Q24H IVPB 10/16/17 16:00 10/21/17 15:59 10/17/17 15:52 Finasteride (Proscar) 5 mg DAILY ORAL 10/12/17 09:00 11/11/17 08:59 10/16/17 09:04 Heparin Sodium (Porcine) (Heparin 5000 units/ml) 5,000 units EVERY 12 HOURS SUBQ 10/11/17 21:00 11/10/17 20:59 10/17/17 22:12 Hydromorphone HCl (Dilaudid) 0.5 mg Q6HR PRN IVP Pain Scale (6-10) 10/15/17 07:15 10/22/17 07:14 10/18/17 10:38 Insulin Aspart (NovoLOG) BEFORE MEALS AND HS SUBQ 10/11/17 21:00 11/10/17 20:59 10/18/17 12:15 Insulin Detemir (Levemir) 12 units Q24H SUBQ 10/16/17 18:00 11/15/17 17:59 10/17/17 18:07 Mirtazapine (Remeron) 15 mg BEDTIME ORAL 10/11/17 21:00 11/10/17 20:59 10/17/17 22:06 Ondansetron HCl (Zofran) 4 mg Q6H PRN IVP Nausea & Vomiting 10/11/17 16:45 11/10/17 16:44 Oxycodone HCl (OxyCONTIN) 10 mg Q8HR ORAL 10/11/17 22:00 10/18/17 21:59 10/18/17 05:35 Oxycodone HCl (Roxicodone) 5 mg Q4H PRN ORAL moderate pain 10/11/17 16:45 10/18/17 16:44 Oxycodone HCl (Roxicodone) 10 mg Q4H PRN ORAL severe pain 10/11/17 16:45 10/18/17 16:44 10/18/17 02:56 Polyethylene Glycol (Miralax) 17 gm HSPRN PRN ORAL Constipation 10/11/17 16:45 11/10/17 16:44 Risperidone (RisperDAL) 1 mg BEDTIME ORAL 10/14/17 21:00 11/13/17 20:59 10/17/17 22:06 Sodium Hypochlorite (Dakin's Quarter Strength) 1 applic DAILY@2100 TOPIC 10/15/17 21:00 11/14/17 20:59 10/16/17 22:28 Tamsulosin HCl (Flomax) 0.4 mg BID ORAL 10/12/17 13:30 11/10/17 13:29 10/18/17 09:37 Vitamin B Complex/ Vit C/Folic Acid (Nephrovite) 1 tab DAILY ORAL 10/12/17 09:00 11/11/17 08:59 10/15/17 09:37 Vitamin D (Vitamin D) 2,000 intlu DAILY ORAL 10/12/17 09:00 11/11/17 08:59 10/15/17 09:37 LARON HERNANDEZ Oct 18, 2017 15:51
[2017-10-18 16:00] VITALS: BP 132/76
[2017-10-18] MEDS: Ertapenem 1 GM in NS 55 ML IVPB SCH (16:27)
[2017-10-18 16:48] LABS: CREATINE KINASE 39 U/L (26-308)
[2017-10-18] MEDS: NS IV SCH (17:27)
[2017-10-18] MEDS: DAPTOMYCIN IV SCH (17:27)
[2017-10-18] MEDS: Levemir Flexpen SUBQ SCH (17:34)
--- NOTE | 2017-10-18 18:25 | General Progress Note ---
Assessment/Plan Problem List: (1) Dementia with behavioral disturbance Assessment & Plan: Dementia with behavior disturbance and agitation. lacks capacity to make decisions lacks capacity to refuse meds PLAN: 1. Continue risperidone 1 mg at bedtime. 2. Continue Remeron 15 at bedtime. 3. Continue to follow and readjust the medications. ICD Codes: F03.91 - Unspecified dementia with behavioral disturbance SNOMED: [id number] Status: stable, progressing Assessment/Plan Dementia with behavior disturbance and agitation. lacks capacity to make decisions lacks capacity to refuse meds PLAN: 1. Continue risperidone 1 mg at bedtime. 2. Continue Remeron 15 at bedtime. 3. Continue to follow and readjust the medications. Subjective Date patient seen: Oct 18, 2017 Neurologic/Psychiatric: Reports: anxiety, depressed, emotional problems Allergies: Coded Allergies: GABAPENTIN (Verified Allergy, Unknown, 10/11/17) OLIVE OIL (Verified Adverse Reaction, Severe, SPASM IN THE COLON, 01/18/14) PREGABALIN (Verified Adverse Reaction, Intermediate, "hypernervous", ) ACETAMINOPHEN (Verified Adverse Reaction, Mild, IRRITABILITY AND ELEVATED BLOOD PRESSURE, 01/18/14) IBUPROFEN (Verified Adverse Reaction, Mild, IRRITABILITY AND ELEVATED BLOOD PRESSURE, 01/18/14) Uncoded Allergies: SSRI (Allergy, Unknown, 10/11/17) Subjective episodes of confusion. noncompliant at times Objective Last 24 Hour Vital Signs Date Time Temp Pulse Resp B/P (MAP) Pulse Ox O2 Delivery O2 Flow Rate FiO2 10/18/17 16:00 97.7 79 20 132/76 94 97.7 10/18/17 12:00 98.5 75 20 140/66 93 Room Air 98.5 10/18/17 08:00 98.4 79 20 94/69 94 Room Air 98.4 10/18/17 04:00 98.2 72 21 133/62 94 98.2 10/17/17 20:00 98.7 75 21 159/77 95 98.7 Intake and Output 10/17/17 10/18/17 19:00 07:00 Intake Total 940 ml Output Total 300 ml 1090 ml Balance 640 ml -1090 ml Intake Oral 940 ml Output Urine Total 1050 ml Post Void Residual 300 ml Drainage Total 40 ml Bladder Scan Volume Amount <10 ml # Voids 11 Laboratory Tests 10/18/17 04:00: White Blood Count 13.8H, Red Blood Count 3.48L, Hemoglobin 9.1L, Hematocrit 28.1L, Mean Corpuscular Volume 81, Mean Corpuscular Hemoglobin 26.2L, Mean Corpuscular Hemoglobin Concent 32.5, Red Cell Distribution Width 14.9H, Platelet Count 439, Mean Platelet Volume 5.1L, Neutrophils (%) (Auto) 75.2H, Lymphocytes (%) (Auto) 14.4L, Monocytes (%) (Auto) 6.1, Eosinophils (%) (Auto) 3.4H, Basophils (%) (Auto) 1.0, Sodium Level 136, Potassium Level 4.2, Chloride Level 105, Carbon Dioxide Level 24, Anion Gap 7, Blood Urea Nitrogen 23H, Creatinine 1.5H, Estimat Glomerular Filtration Rate , Glucose Level 119H, Uric Acid 7.5H, Calcium Level 8.2L, Phosphorus Level 2.4L, Magnesium Level 1.6L, Total Bilirubin 0.4, Aspartate Amino Transf (AST/SGOT) 11L, Alanine Aminotransferase (ALT/SGPT) 13, Alkaline Phosphatase 71, Total Creatine Kinase 39, C-Reactive Protein, Quantitative 9.4H, Pro-B-Type Natriuretic Peptide 3992H , Total Protein 6.1L, Albumin 1.9L, Globulin 4.2, Albumin/Globulin Ratio 0.5L Height (Feet): 5 Height (Inches): 8.00 Weight (Pounds): 185 General Appearance: no apparent distress, alert Neurologic: alert, oriented x 3, responsive, depressed affect Milton Lancaster M.D. Oct 18, 2017 18:25
[2017-10-18 20:00] VITALS: BP 115/56
[2017-10-18] MEDS: Dyna-Hex 2% Top Sol 2oz TOPIC SCH (21:14)
[2017-10-18] MEDS: Analgesic Balm 15gm TOPIC SCH (21:19)
[2017-10-19] VITALS: BP 149/70
[2017-10-19 04:00] VITALS: BP 142/68
[2017-10-19] MEDS: NovoLOG Insulin Flexpen SUBQ SCH ×5 (06:28→20:41)
[2017-10-19 08:00] VITALS: BP 138/66
--- NOTE | 2017-10-19 08:26 | General Progress Note ---
Assessment/Plan Problem List: (1) Gram-negative bacteremia Assessment & Plan: Bacterioides fragilis bacteremia ICD Codes: R78.81 - Bacteremia SNOMED: 628068351798 (2) Sepsis ICD Codes: A41.9 - Sepsis, unspecified organism SNOMED: 62866444 (3) Progressive osteomyelitis of the posterior calcaneus (4) Cellulitis of left lower extremity ICD Codes: L03.116 - Cellulitis of left lower limb SNOMED: 329910004 (5) L heel diabetic ulcer with concern for osteomyelitis (6) Complete tear with retraction of the calcaneal tendon (7) MISHEL on CKD (8) CKD stage 3 (9) DM2 (diabetes mellitus, type 2) Assessment & Plan: A1C 9.9 ICD Codes: E11.9 - Type 2 diabetes mellitus without complications SNOMED: 26418382 (10) HTN (hypertension) ICD Codes: I10 - Essential (primary) hypertension SNOMED: 42975964 (11) Diabetic neuropathy ICD Codes: E11.40 - Type 2 diabetes mellitus with diabetic neuropathy, unspecified SNOMED: 71454063, 300701214, 500444492 (12) Diabetic nephropathy ICD Codes: E11.21 - Type 2 diabetes mellitus with diabetic nephropathy SNOMED: 68146123, 900122890 Qualifiers: Qualified Codes: E11.21 - Type 2 diabetes mellitus with diabetic nephropathy (13) Hyponatremia ICD Codes: E87.1 - Hypo-osmolality and hyponatremia SNOMED: 26780787 (14) Chronic diabetic ulcer right foot Status: stable Assessment/Plan Podiatry, ID, renal consulted s/p vanco (10/11-10/16) Cont meropenem (10/14-) Cont daptomycin 8mg/kg for VRE (10/17-) Will need total of 6 weeks of IV abx per ID given osteomyelitis s/p cefepime and flagyl (10/11-10/14) F/u cultures--blood culture showing GNR, wound culture showing Klebsiella and Proteus F/u repeat blood cultures--ngtd PICC line placed 10/17/17 Wound care per podiatry Check MRI L foot--shows progressive osteomyelitis, heel ulceration, soft tissue gas, complete tear of Achilles tendon s/p incision and drainage left foot, excisional debridement to the level of muscle left foot, and partial calcanectomy left foot on 10/13/17 NWB LLE IVFs given MISHEL Avoid nephrotoxins Check renal U/S--shows bladder volume 337mL, refused connolly Flomax 0.4mg BID + finasteride 5mg daily Check TTE--EF 55-60% Pain control, bowel regimen Supportive care Cont SNF meds but hold lasix, MTF for now ZENIA RODARTE planning to SNF pending wound vac delivered DVT Prophylaxis: HSQ Code Status: Full Hospital Classification Declaration: Based on this initial evaluation, and depending on the patient's clinical course, I anticipate that this patient will require hospitalization for 1-2 days for LLE cellulitis, L heel diabetic ulcer w / concern for osteo, and close respiratory/hemodynamic monitoring. Disposition: Once the patient is stable to leave the hospital, I anticipate the patient will likely be discharged to the following environment: back to SNF Discussed with patient/family, nursing staff, SW/CM, podiatry, ID regarding clinical status, treatment course, and disposition planning. D/w ID re abx on d/ c, PICC. D/w podiatry re wound vac, d/c plan Time of note may not reflect time of encounter Subjective Date patient seen: Oct 18, 2017 Time patient seen: 12:00 ROS Limited/Unobtainable: No Constitutional: Reports: no symptoms HEENT: Reports: no symptoms Cardiovascular: Reports: no symptoms Respiratory: Reports: no symptoms Gastrointestinal/Abdominal: Reports: no symptoms Genitourinary: Reports: no symptoms Neurologic/Psychiatric: Reports: no symptoms Endocrine: Reports: no symptoms Hematologic/Lymphatic: Reports: no symptoms Allergies: Coded Allergies: GABAPENTIN (Verified Allergy, Unknown, 10/11/17) OLIVE OIL (Verified Adverse Reaction, Severe, SPASM IN THE COLON, 01/18/14) PREGABALIN (Verified Adverse Reaction, Intermediate, "hypernervous", ) ACETAMINOPHEN (Verified Adverse Reaction, Mild, IRRITABILITY AND ELEVATED BLOOD PRESSURE, 01/18/14) IBUPROFEN (Verified Adverse Reaction, Mild, IRRITABILITY AND ELEVATED BLOOD PRESSURE, 01/18/14) Uncoded Allergies: SSRI (Allergy, Unknown, 10/11/17) Subjective No acute o/n events MRI L foot shows progressive osteomyelitis, heel ulcer, soft tissue gas, complete tear of Achilles tendon s/p incision and drainage left foot, excisional debridement to the level of muscle left foot, and partial calcanectomy left foot POD#5 Blood cultures growing Bacterioides fragilis. Repeat blood cultures neg Wound culture showing proteus and klebsiella--now also showing VRE. D/w ID and pt started on daptomycin Awaiting wound vac delivery to SNF prior to d/c WBC down to 13K Pt c/o foot pain. Lethargic, some chills. Denies n/v, d/c, chest pain, SOB, abd pain Objective Last 24 Hour Vital Signs Date Time Temp Pulse Resp B/P (MAP) Pulse Ox O2 Delivery O2 Flow Rate FiO2 10/19/17 04:00 98.6 81 20 142/68 95 98.6 10/19/17 00:00 99.7 75 22 149/70 95 99.7 10/18/17 20:00 98.8 97 20 115/56 95 98.8 10/18/17 16:00 97.7 79 20 132/76 94 97.7 10/18/17 12:00 98.5 75 20 140/66 93 Room Air 98.5 Intake and Output 10/18/17 10/19/17 19:00 07:00 Intake Total 2000 ml 240 ml Output Total 300 ml 120 ml Balance 1700 ml 120 ml Intake Oral 2000 ml 240 ml Output Urine Total 100 ml Post Void Residual 300 ml Drainage Total 20 ml Bladder Scan Volume Amount <10 ml # Voids 13 Height (Feet): 5 Height (Inches): 8.00 Weight (Pounds): 185 Objective General: alert, cooperative, no distress, appears stated age Head: normocephalic, without obvious abnormality, atraumatic Eyes: conjunctivae/corneas clear. PERRL, EOM's intact Throat: lips, mucosa, and tongue normal. MMM Neck: supple, symmetrical, trachea midline, and no JVD Lungs: clear to auscultation bilaterally Heart: regular rate and rhythm, S1, S2 normal, no murmur, click, rub or gallop Abdomen: soft, non-tender, non-distended, bowel sounds normal Extremities: extremities normal, atraumatic, no cyanosis, 1-2+ pitting edema BLE Pulses: 2+ and symmetric Skin: Left heel full-thickness ulceration which probes to bone, +erythema/edema/ warmth, +purulent drainage Right plantar midfoot with full-thickness ulceration measuring 1 cm in diameter with granular wound base.There is no erythema, drainage, fluctuance, or malodor Neurologic: grossly normal, no focal deficits Conner Orozco M.D. Oct 19, 2017 08:26
[2017-10-19] MEDS: Tamsulosin 0.4mg cap ORAL SCH ×3 (09:00→18:30)
[2017-10-19] MEDS: Analgesic Balm 15gm TOPIC SCH ×3 (09:00→18:32)
[2017-10-19] MEDS: Doxazosin 1mg Tab ORAL SCH ×4 (09:00→18:30)
[2017-10-19] MEDS: Docusate 100mg cap ORAL SCH ×4 (09:00→18:32)
[2017-10-19] MEDS: Vitamin D 400 INTLU TAB ORAL SCH ×2 (09:00→10:17)
[2017-10-19] MEDS: Heparin 5000 units/ml inj SUBQ SCH ×3 (09:00→21:00)
[2017-10-19] MEDS: Nephrovite tab (Rena-Vite) ORAL SCH ×2 (09:00→10:18)
--- NOTE | 2017-10-19 10:22 | General Progress Note ---
Assessment/Plan Assessment/Plan 1. Anemia due to underlying chronic disease. --> Continue to closely monitor. Hemoglobin goal is above 7 --> anemia workup reviewed. Iron 9, TIBC 127, B12 1791, Folate 41 --> Hemoglobin downtrended from yesterday, remains above goal, no blood transfusion required 2. Anemia of iron deficiency, potentially secondary to osteomyelitis. --> Monitor closely. Trend cbc. 3. Leukocytosis, status post debridement, gram-negative jasmyn infection noted. --> Wbc count improved. Remains on meropenem. Monitor closely. --> Infectious Disease Service following. 4. Anemia due to underlying kidney disease. --> Closely monitor, again improving. 5. Thrombocytosis, likely reactive process from underlying anemia, closely monitor for improvement. 6. Elevated creatinine, chronic kidney disease. 7. Diabetes mellitus, on insulin sliding scale as needed as per primary team. 8. Diastolic dysfunction. Subjective Date patient seen: Oct 18, 2017 Constitutional: Denies: no symptoms, chills, diaphoresis, fever, malaise, weakness, other HEENT: Denies: no symptoms, eye pain, blurred vision, tearing, double vision, ear pain, ear discharge, nose pain, nose congestion, throat pain, throat swelling, mouth pain, mouth swelling, other Cardiovascular: Denies: no symptoms, chest pain, edema, irregular heart rate, lightheadedness, palpitations, syncope, other Respiratory: Denies: no symptoms, cough, orthopnea, shortness of breath, SOB with excertion, SOB at rest, sputum, stridor, wheezing, other Gastrointestinal/Abdominal: Denies: no symptoms, abdomen distended, abdominal pain, black stools, tarry stools, blood in stool, constipated, diarrhea, difficulty swallowing, nausea, poor appetite, poor fluid intake, rectal bleeding , vomiting, other Genitourinary: Denies: no symptoms, burning, discharge, frequency, flank pain, hematuria, incontinence, pain, urgency, other Neurologic/Psychiatric: Denies: no symptoms, anxiety, depressed, emotional problems, headache, numbness, paresthesia, pre-existing deficit, seizure, tingling, tremors, weakness, other Endocrine: Denies: no symptoms, excessive sweating, flushing, intolerance to cold, intolerance to heat, increased hunger, increased thirst, increased urine, unexplained weight gain, unexplained weight loss, other Hematologic/Lymphatic: Reports: anemia Allergies: Coded Allergies: GABAPENTIN (Verified Allergy, Unknown, 10/11/17) OLIVE OIL (Verified Adverse Reaction, Severe, SPASM IN THE COLON, 01/18/14) PREGABALIN (Verified Adverse Reaction, Intermediate, "hypernervous", ) ACETAMINOPHEN (Verified Adverse Reaction, Mild, IRRITABILITY AND ELEVATED BLOOD PRESSURE, 01/18/14) IBUPROFEN (Verified Adverse Reaction, Mild, IRRITABILITY AND ELEVATED BLOOD PRESSURE, 01/18/14) Uncoded Allergies: SSRI (Allergy, Unknown, 10/11/17) Subjective Confused and noncompliant. Leukocytosis improving. Objective Last 24 Hour Vital Signs Date Time Temp Pulse Resp B/P (MAP) Pulse Ox O2 Delivery O2 Flow Rate FiO2 10/19/17 04:00 98.6 81 20 142/68 95 98.6 10/19/17 00:00 99.7 75 22 149/70 95 99.7 10/18/17 20:00 98.8 97 20 115/56 95 98.8 10/18/17 16:00 97.7 79 20 132/76 94 97.7 10/18/17 12:00 98.5 75 20 140/66 93 Room Air 98.5 Intake and Output 10/18/17 10/19/17 19:00 07:00 Intake Total 2000 ml 240 ml Output Total 300 ml 120 ml Balance 1700 ml 120 ml Intake Oral 2000 ml 240 ml Output Urine Total 100 ml Post Void Residual 300 ml Drainage Total 20 ml Bladder Scan Volume Amount <10 ml # Voids 13 Height (Feet): 5 Height (Inches): 8.00 Weight (Pounds): 185 General Appearance: confused Respiratory/Chest: decreased breath sounds Abdomen: non tender, soft Edema: trace edema Giovany Wgigins Oct 19, 2017 10:22
--- NOTE | 2017-10-19 11:24 | Diagnostic Imaging Report ---
Indication: Left leg pain Comparison: None Findings: Two views of the left tibia and fibula were obtained. No acute fracture, malalignment, or periosteal reaction are identified. Bones are osteopenic. Soft tissues are unremarkable. Impression: No acute injury.
--- NOTE | 2017-10-19 11:32 | Infectious Diseases Prog Note ---
Assessment/Plan Assessment/Plan ASSESSMENT AND PLAN: 1. bacteroides bacteremia, proteus/klebsiella/vre left heel/foot wound infection and osteomyelitis on MRI, sepsis, leukocytosis, urine culture with yeast - 10-20,000 - s/p debridement - leukocytosis better, continue to monitor wbc - f/u labs - invanz/daptomycin iv daily approximately to complete 6 week course of abx - vre colonized - urine culture with 10-20,000 yeast which is likely colonizer but with sig + ua, will recheck ua and culture 2. Elevated creatinine, chronic renal failure, acute kidney injury. 3. Anemia. 4. The patient with history of diabetes. 5. Hypertension. 6. Blood sugar and blood pressure treatment per primary. 7. Benign prostatic hypertrophy. 8. Atherosclerotic cardiovascular disease. 9. Chronic diastolic congestive heart failure. 10. Anemia. 11. Dizziness, headaches, weakness, and fatigue. 12. Allergies, acetaminophen, gabapentin, ibuprofen, Elavil, pregabalin, and selective serotonin reuptake inhibitors. 13. Social history negative. 14. Family history noncontributory. 15. MAR was noted. 16. Case discussed with RN. 17. Continue treatment per primary consultants. 18. Orders were entered. 19. Notes and records noted. Subjective Constitutional: Denies: fever Respiratory: Denies: shortness of breath Cardiovascular: Denies: chest pain Gastrointestinal/Abdominal: Denies: nausea, vomiting, diarrhea Genitourinary: Denies: dysuria Neurologic: Denies: headache, numbness, weakness Psychiatric: Denies: depression Skin: Denies: rash Hematologic: Denies: bleeding Musculoskeletal: Denies: pain Allergies: Coded Allergies: GABAPENTIN (Verified Allergy, Unknown, 10/11/17) OLIVE OIL (Verified Adverse Reaction, Severe, SPASM IN THE COLON, 01/18/14) PREGABALIN (Verified Adverse Reaction, Intermediate, "hypernervous", ) ACETAMINOPHEN (Verified Adverse Reaction, Mild, IRRITABILITY AND ELEVATED BLOOD PRESSURE, 01/18/14) IBUPROFEN (Verified Adverse Reaction, Mild, IRRITABILITY AND ELEVATED BLOOD PRESSURE, 01/18/14) Uncoded Allergies: SSRI (Allergy, Unknown, 10/11/17) Objective Vital Signs Last 24 Hour Vital Signs Date Time Temp Pulse Resp B/P (MAP) Pulse Ox O2 Delivery O2 Flow Rate FiO2 10/19/17 08:00 97.4 74 21 138/66 98 97.4 10/19/17 04:00 98.6 81 20 142/68 95 98.6 10/19/17 00:00 99.7 75 22 149/70 95 99.7 10/18/17 20:00 98.8 97 20 115/56 95 98.8 10/18/17 16:00 97.7 79 20 132/76 94 97.7 10/18/17 12:00 98.5 75 20 140/66 93 Room Air 98.5 Height (Feet): 5 Height (Inches): 8.00 Weight (Pounds): 185 General Appearance: no acute distress HEENT: normocephalic, atraumatic, anicteric, mucous membranes moist Respiratory/Chest: lungs clear, normal breath sounds, no respiratory distress, no accessory muscle use Cardiovascular: normal rate, regular rhythm, no gallop/murmur, no JVD Abdomen: normal bowel sounds, soft, non tender, no organomegaly, non distended Genitourinary: other - no connolly Extremities: other - left leg with less redness, foot covered Skin: no rash 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 No acute process otherwise. MRI left foot and ankle - Impression: Positive for progressive osteomyelitis of the posterior calcaneus, since prior study of 08/02/2017 Increasing ulceration of the overlying soft tissues, with possible exposure of the medial aspect of the calcaneal tuberosity. Small amount of gas within the medial soft tissues,. The related open wound or could indicate infection by gas-forming organism Complete tear with retraction of the calcaneal tendon, as described. Fluid in the tibiotalar joint. Probably reactive secondary to the above Diffuse edema of the subcutaneous fat. This could be due to cellulitis or could be related to hemodynamic abnormalities Other findings as noted Findings discussed by phone with Dr. Prieto at the time of interpretation Microbiology Date/Time Source Procedure Growth Status 10/14/17 08:50 Blood Blood Culture - Preliminary NO GROWTH AFTER 4 DAYS Resulted 10/11/17 17:00 Nasal Nares MRSA Culture - Final NO METHICILLIN RESISTANT STAPH AUREUS... Complete 10/17/17 12:45 Urine,Clean Catch Urine Culture - Preliminary YEAST Resulted 10/13/17 19:20 Foot Left Gram Stain - Final Complete 10/13/17 19:20 Aerobic Culture - Final Klebsiella Pneumoniae Proteus Mirabilis Enterococcus Faecium - Vre Complete 10/13/17 19:20 Foot Left Anaerobic Culture - Final NO ANAEROBES ISOLATED Complete Microbiology Date/Time Source Procedure Growth Status 10/17/17 12:45 Urine,Clean Catch Urine Culture - Preliminary YEAST Resulted Labs Test 10/16/17 14:25 10/17/17 12:45 10/18/17 04:00 White Blood Count 15.7 K/UL (4.8-10.8) 13.8 K/UL (4.8-10.8) Red Blood Count 3.57 M/UL (4.70-6.10) 3.48 M/UL (4.70-6.10) Hemoglobin 9.3 G/DL (14.2-18.0) 9.1 G/DL (14.2-18.0) Hematocrit 28.6 % (42.0-52.0) 28.1 % (42.0-52.0) Mean Corpuscular Volume 80 FL (80-99) 81 FL (80-99) Mean Corpuscular Hemoglobin 26.2 PG (27.0-31.0) 26.2 PG (27.0-31.0) Mean Corpuscular Hemoglobin Concent 32.6 G/DL (32.0-36.0) 32.5 G/DL (32.0-36.0) Red Cell Distribution Width 14.9 % (11.6-14.8) 14.9 % (11.6-14.8) Platelet Count 476 K/UL (150-450) 439 K/UL (150-450) Mean Platelet Volume 5.4 FL (6.5-10.1) 5.1 FL (6.5-10.1) Neutrophils (%) (Auto) 82.1 % (45.0-75.0) 75.2 % (45.0-75.0) Lymphocytes (%) (Auto) 8.7 % (20.0-45.0) 14.4 % (20.0-45.0) Monocytes (%) (Auto) 5.9 % (1.0-10.0) 6.1 % (1.0-10.0) Eosinophils (%) (Auto) 2.9 % (0.0-3.0) 3.4 % (0.0-3.0) Basophils (%) (Auto) 0.5 % (0.0-2.0) 1.0 % (0.0-2.0) Sodium Level 137 MMOL/L (136-145) 136 MMOL/L (136-145) Potassium Level 4.6 MMOL/L (3.5-5.1) 4.2 MMOL/L (3.5-5.1) Chloride Level 106 MMOL/L (98-107) 105 MMOL/L (98-107) Carbon Dioxide Level 24 MMOL/L (21-32) 24 MMOL/L (21-32) Anion Gap 7 mmol/L (5-15) 7 mmol/L (5-15) Blood Urea Nitrogen 28 mg/dL (7-18) 23 mg/dL (7-18) Creatinine 1.6 MG/DL (0.55-1.30) 1.5 MG/DL (0.55-1.30) Estimat Glomerular Filtration Rate mL/min (>60) mL/min (>60) Glucose Level 259 MG/DL (74-106) 119 MG/DL (74-106) Calcium Level 8.2 MG/DL (8.5-10.1) 8.2 MG/DL (8.5-10.1) Urine Color Pale yellow Urine Appearance Cloudy Urine pH 5 (4.5-8.0) Urine Specific [place] 1.015 (1.005-1.035) Urine Protein 3+ (NEGATIVE) Urine Glucose (UA) Negative (NEGATIVE) Urine Ketones Negative (NEGATIVE) Urine Occult Blood 3+ (NEGATIVE) Urine Nitrite Negative (NEGATIVE) Urine Bilirubin Negative (NEGATIVE) Urine Urobilinogen Normal MG/DL (0.0-1.0) Urine Leukocyte Esterase 3+ (NEGATIVE) Urine RBC 2-4 /HPF (0 - 0) Urine WBC Tntc /HPF (0 - 0) Urine Squamous Epithelial Cells Occasional /LPF Urine Bacteria Occasional /HPF (NONE) Uric Acid 7.5 MG/DL (2.6-7.2) Phosphorus Level 2.4 MG/DL (2.5-4.9) Magnesium Level 1.6 MG/DL (1.8-2.4) Total Bilirubin 0.4 MG/DL (0.2-1.0) Aspartate Amino Transf (AST/SGOT) 11 U/L (15-37) Alanine Aminotransferase (ALT/SGPT) 13 U/L (12-78) Alkaline Phosphatase 71 U/L (46-116) Total Creatine Kinase 39 U/L (26-308) C-Reactive Protein, Quantitative 9.4 mg/dL (0.00-0.90) Pro-B-Type Natriuretic Peptide 3992 pg/mL (0-125) Total Protein 6.1 G/DL (6.4-8.2) Albumin 1.9 G/DL (3.4-5.0) Globulin 4.2 g/dL Albumin/Globulin Ratio 0.5 (1.0-2.7) Current Medications Medications (Trade) Dose Ordered Sig/Dari Route PRN Reason Start Time Stop Time Status Last Admin Dose Admin Acetaminophen (Tylenol) 650 mg Q4H PRN ORAL Mild Pain (Scale 1-3), fever 10/11/17 16:45 11/10/17 16:44 Amlodipine Besylate (Norvasc) 2.5 mg DAILY ORAL 10/17/17 09:00 11/16/17 08:59 Bisacodyl (Dulcolax) 10 mg HSPRN PRN RECTAL Constipation 10/11/17 17:15 11/10/17 17:14 Chlorhexidine Gluconate (Sarah-Hex 2%) 1 applic DAILY@2000 TOPIC 10/17/17 20:00 11/16/17 19:59 10/18/17 21:14 Clotrimazole (Lotrimin) 1 applic EVERY 12 HOURS TOPIC 10/14/17 21:00 11/13/17 20:59 10/18/17 21:15 Daptomycin 670 mg/ Sodium Chloride 110 ml @ 220 mls/hr Q24H IV 10/17/17 17:00 10/24/17 16:59 10/18/17 17:27 Dextrose (Dextrose 50%) STAT PRN IV Hypoglycemia 10/11/17 16:45 11/10/17 16:44 Docusate Sodium (Colace) 100 mg TID ORAL 10/12/17 13:30 11/10/17 13:29 10/13/17 09:34 Doxazosin Mesylate (Cardura) 1 mg TID ORAL 10/16/17 13:00 11/15/17 12:59 Ertapenem 1 gm/ Sodium Chloride 55 ml @ 110 mls/hr Q24H IVPB 10/16/17 16:00 10/21/17 15:59 10/18/17 16:27 Finasteride (Proscar) 5 mg DAILY ORAL 10/12/17 09:00 11/11/17 08:59 10/16/17 09:04 Heparin Sodium (Porcine) (Heparin 5000 units/ml) 5,000 units EVERY 12 HOURS SUBQ 10/11/17 21:00 11/10/17 20:59 10/17/17 22:12 Hydromorphone HCl (Dilaudid) 1 mg Q4H PRN IVP Severe Pain (Pain Scale 7-10) 10/18/17 17:00 10/25/17 16:59 10/19/17 05:12 Insulin Aspart (NovoLOG) BEFORE MEALS AND HS SUBQ 10/11/17 21:00 11/10/17 20:59 10/18/17 17:33 Insulin Detemir (Levemir) 12 units Q24H SUBQ 10/16/17 18:00 11/15/17 17:59 10/18/17 17:34 Menthol/Methyl Salicylate (Bengay) 1 applic BID TOPIC 10/18/17 20:00 11/17/17 19:59 10/18/17 21:19 Mirtazapine (Remeron) 15 mg BEDTIME ORAL 10/11/17 21:00 11/10/17 20:59 10/18/17 21:15 Ondansetron HCl (Zofran) 4 mg Q6H PRN IVP Nausea & Vomiting 10/11/17 16:45 11/10/17 16:44 Polyethylene Glycol (Miralax) 17 gm HSPRN PRN ORAL Constipation 10/11/17 16:45 11/10/17 16:44 Risperidone (RisperDAL) 1 mg BEDTIME ORAL 10/14/17 21:00 11/13/17 20:59 10/18/17 21:14 Tamsulosin HCl (Flomax) 0.4 mg BID ORAL 10/12/17 13:30 11/10/17 13:29 10/18/17 09:37 Vitamin B Complex/ Vit C/Folic Acid (Nephrovite) 1 tab DAILY ORAL 10/12/17 09:00 11/11/17 08:59 10/15/17 09:37 Vitamin D (Vitamin D) 2,000 intlu DAILY ORAL 10/12/17 09:00 11/11/17 08:59 10/15/17 09:37 LARON HERNANDEZ Oct 19, 2017 11:32
--- NOTE | 2017-10-19 13:09 | Podiatric Progress Note ---
Assessment/Plan Patient Hank Nava is a 72 year old male who was admitted on Oct 11, 2017 at 15:22 with Problems: Assessment/Plan A/ 1) Cellulitis left lower extremity 2) Chronic diabetic ulcer left heel with osteomyelitis 3) DM with Diabetic Neuropathy 4) Chronic diabetic ulcer right foot 5) Charcot deformity right foot 6) Obesity 7) Difficulty walking 8) Dementia P/ 1) Hold Wound VAC. Start wet to dry with Dakin's solution. Will continue with limb salvage. 2) Cont pain management 3) Abx per ID - VRE. 4) Will follow Subjective Allergies: Coded Allergies: GABAPENTIN (Verified Allergy, Unknown, 10/11/17) OLIVE OIL (Verified Adverse Reaction, Severe, SPASM IN THE COLON, 01/18/14) PREGABALIN (Verified Adverse Reaction, Intermediate, "hypernervous", ) ACETAMINOPHEN (Verified Adverse Reaction, Mild, IRRITABILITY AND ELEVATED BLOOD PRESSURE, 01/18/14) IBUPROFEN (Verified Adverse Reaction, Mild, IRRITABILITY AND ELEVATED BLOOD PRESSURE, 01/18/14) Uncoded Allergies: SSRI (Allergy, Unknown, 10/11/17) Subjective Patient has pain in left leg. Objective Exam Last 24 Hour Vital Signs Date Time Temp Pulse Resp B/P (MAP) Pulse Ox O2 Delivery O2 Flow Rate FiO2 10/19/17 08:00 97.4 74 21 138/66 98 97.4 10/19/17 04:00 98.6 81 20 142/68 95 98.6 10/19/17 00:00 99.7 75 22 149/70 95 99.7 10/18/17 20:00 98.8 97 20 115/56 95 98.8 10/18/17 16:00 97.7 79 20 132/76 94 97.7 Microbiology Date/Time Source Procedure Growth Status 10/14/17 08:50 Blood Blood Culture - Preliminary NO GROWTH AFTER 4 DAYS Resulted 10/11/17 17:00 Nasal Nares MRSA Culture - Final NO METHICILLIN RESISTANT STAPH AUREUS... Complete 10/17/17 12:45 Urine,Clean Catch Urine Culture - Preliminary YEAST Resulted 10/13/17 19:20 Foot Left Gram Stain - Final Complete 10/13/17 19:20 Aerobic Culture - Final Klebsiella Pneumoniae Proteus Mirabilis Enterococcus Faecium - Vre Complete 10/13/17 19:20 Foot Left Anaerobic Culture - Final NO ANAEROBES ISOLATED Complete Musculoskeletal Musculoskeletal TIB-FIB x-rays neg for gas or acute findings Dermatological Wound Assessment : Exudate Amount: Moderate Dermatological Narrative Images reviewed - wound base is fibrotic, left leg edematous, periwound erythema persists Raymundo Velasquez DPM Oct 19, 2017 13:09
--- NOTE | 2017-10-19 16:22 | General Progress Note ---
Assessment/Plan Problem List: (1) Gram-negative bacteremia Assessment & Plan: Bacterioides fragilis bacteremia ICD Codes: R78.81 - Bacteremia SNOMED: 448305544654 (2) Sepsis ICD Codes: A41.9 - Sepsis, unspecified organism SNOMED: 01259688 (3) Progressive osteomyelitis of the posterior calcaneus (4) Cellulitis of left lower extremity ICD Codes: L03.116 - Cellulitis of left lower limb SNOMED: 582294835 (5) L heel diabetic ulcer with concern for osteomyelitis (6) Complete tear with retraction of the calcaneal tendon (7) MISHEL on CKD (8) CKD stage 3 (9) DM2 (diabetes mellitus, type 2) Assessment & Plan: A1C 9.9 ICD Codes: E11.9 - Type 2 diabetes mellitus without complications SNOMED: 57864837 (10) HTN (hypertension) ICD Codes: I10 - Essential (primary) hypertension SNOMED: 02258811 (11) Diabetic neuropathy ICD Codes: E11.40 - Type 2 diabetes mellitus with diabetic neuropathy, unspecified SNOMED: 32361793, 137677369, 113323914 (12) Diabetic nephropathy ICD Codes: E11.21 - Type 2 diabetes mellitus with diabetic nephropathy SNOMED: 93349838, 229662285 Qualifiers: Qualified Codes: E11.21 - Type 2 diabetes mellitus with diabetic nephropathy (13) Hyponatremia ICD Codes: E87.1 - Hypo-osmolality and hyponatremia SNOMED: 12789094 (14) Chronic diabetic ulcer right foot Status: stable Assessment/Plan Podiatry, ID, renal consulted s/p vanco (10/11-10/16) Cont meropenem (10/14-) Cont daptomycin 8mg/kg for VRE (10/17-) Will need total of 6 weeks of IV abx per ID given osteomyelitis s/p cefepime and flagyl (10/11-10/14) F/u cultures--blood culture showing GNR, wound culture showing Klebsiella and Proteus F/u repeat blood cultures--ngtd PICC line placed 10/17/17 Wound care per podiatry Check MRI L foot--shows progressive osteomyelitis, heel ulceration, soft tissue gas, complete tear of Achilles tendon s/p incision and drainage left foot, excisional debridement to the level of muscle left foot, and partial calcanectomy left foot on 10/13/17 NWB LLE IVFs given MISHEL Avoid nephrotoxins Check renal U/S--shows bladder volume 337mL, refused connolly Flomax 0.4mg BID + finasteride 5mg daily Check TTE--EF 55-60% Pain control, bowel regimen Supportive care Cont SNF meds but hold lasix, MTF for now ZENIA RODARTE once authorization for SNF obtained. Wound vac has been delivered DVT Prophylaxis: HSQ Code Status: Full Hospital Classification Declaration: Based on this initial evaluation, and depending on the patient's clinical course, I anticipate that this patient will require hospitalization for 1-2 days for LLE cellulitis, L heel diabetic ulcer w / concern for osteo, and close respiratory/hemodynamic monitoring. Disposition: Once the patient is stable to leave the hospital, I anticipate the patient will likely be discharged to the following environment: back to SNF Discussed with patient/family, nursing staff, SW/CM, podiatry, ID regarding clinical status, treatment course, and disposition planning. D/w ID re abx on d/ c, PICC. D/w podiatry re wound vac, d/c plan Time of note may not reflect time of encounter Subjective Date patient seen: Oct 19, 2017 Time patient seen: 16:22 ROS Limited/Unobtainable: No Constitutional: Reports: no symptoms HEENT: Reports: no symptoms Cardiovascular: Reports: no symptoms Respiratory: Reports: no symptoms Gastrointestinal/Abdominal: Reports: no symptoms Genitourinary: Reports: no symptoms Neurologic/Psychiatric: Reports: no symptoms Endocrine: Reports: no symptoms Hematologic/Lymphatic: Reports: no symptoms Allergies: Coded Allergies: GABAPENTIN (Verified Allergy, Unknown, 10/11/17) OLIVE OIL (Verified Adverse Reaction, Severe, SPASM IN THE COLON, 01/18/14) PREGABALIN (Verified Adverse Reaction, Intermediate, "hypernervous", ) ACETAMINOPHEN (Verified Adverse Reaction, Mild, IRRITABILITY AND ELEVATED BLOOD PRESSURE, 01/18/14) IBUPROFEN (Verified Adverse Reaction, Mild, IRRITABILITY AND ELEVATED BLOOD PRESSURE, 01/18/14) Uncoded Allergies: SSRI (Allergy, Unknown, 10/11/17) Subjective No acute o/n events MRI L foot shows progressive osteomyelitis, heel ulcer, soft tissue gas, complete tear of Achilles tendon s/p incision and drainage left foot, excisional debridement to the level of muscle left foot, and partial calcanectomy left foot POD#6 Blood cultures growing Bacterioides fragilis. Repeat blood cultures neg Wound culture showing proteus and klebsiella--now also showing VRE. D/w ID and pt started on daptomycin Awaiting authorization for SNF as pt's Medicare days have run out Pt is noncompliant with meds Pt c/o foot pain. Lethargic, some chills. Denies n/v, d/c, chest pain, SOB, abd pain Objective Last 24 Hour Vital Signs Date Time Temp Pulse Resp B/P (MAP) Pulse Ox O2 Delivery O2 Flow Rate FiO2 10/19/17 08:00 97.4 74 21 138/66 98 97.4 10/19/17 04:00 98.6 81 20 142/68 95 98.6 10/19/17 00:00 99.7 75 22 149/70 95 99.7 10/18/17 20:00 98.8 97 20 115/56 95 98.8 Intake and Output 10/18/17 10/19/17 19:00 07:00 Intake Total 2000 ml 240 ml Output Total 300 ml 120 ml Balance 1700 ml 120 ml Intake Oral 2000 ml 240 ml Output Urine Total 100 ml Post Void Residual 300 ml Drainage Total 20 ml Bladder Scan Volume Amount <10 ml # Voids 13 Height (Feet): 5 Height (Inches): 8.00 Weight (Pounds): 185 Objective General: alert, cooperative, no distress, appears stated age Head: normocephalic, without obvious abnormality, atraumatic Eyes: conjunctivae/corneas clear. PERRL, EOM's intact Throat: lips, mucosa, and tongue normal. MMM Neck: supple, symmetrical, trachea midline, and no JVD Lungs: clear to auscultation bilaterally Heart: regular rate and rhythm, S1, S2 normal, no murmur, click, rub or gallop Abdomen: soft, non-tender, non-distended, bowel sounds normal Extremities: extremities normal, atraumatic, no cyanosis, 1-2+ pitting edema BLE Pulses: 2+ and symmetric Skin: Left heel full-thickness ulceration which probes to bone, +erythema/edema/ warmth, +purulent drainage Right plantar midfoot with full-thickness ulceration measuring 1 cm in diameter with granular wound base.There is no erythema, drainage, fluctuance, or malodor Neurologic: grossly normal, no focal deficits Conner Orozco M.D. Oct 19, 2017 16:22
[2017-10-19] MEDS: Ertapenem 1 GM in NS 55 ML IVPB SCH (16:24)
[2017-10-19] MEDS: NS IV SCH (17:19)
[2017-10-19] MEDS: DAPTOMYCIN IV SCH (17:19)
--- NOTE | 2017-10-19 17:48 | Wound Nurse Progress Note ---
Wound RN Progress Note Wound Consult # 1 left heel diabetic ulcer.- no change in size -FOLLOW MD VELASQUEZ ORDER TO HOLD WOUND VAC AND APPLY WET TO DRY DRESSING WITH DAKINS SOLUTION TWICE A DAY. Recommendation -Pt is under the care of Dr Velasquez. Please follow MD's order for left heel. -Keep clean and dry -Turn and reposition -Offload both heels -Heel protector on both heels -Optimize nutrition -Assess and f/u accordingly for any changes JAILYN TUCKER Oct 19, 2017 17:48
[2017-10-19] MEDS: Levemir Flexpen SUBQ SCH (18:33)
--- NOTE | 2017-10-19 19:31 | General Progress Note ---
Assessment/Plan Problem List: (1) Dementia with behavioral disturbance Assessment & Plan: Dementia with behavior disturbance and agitation. lacks capacity to make decisions lacks capacity to refuse meds PLAN: 1. Continue risperidone 1 mg at bedtime. 2. Continue Remeron 15 at bedtime. 3. Continue to follow and readjust the medications. ICD Codes: F03.91 - Unspecified dementia with behavioral disturbance SNOMED: 3449022802468 Assessment/Plan Dementia with behavior disturbance and agitation. lacks capacity to make decisions lacks capacity to refuse meds PLAN: 1. Continue risperidone 1 mg at bedtime. 2. Continue Remeron 15 at bedtime. 3. Continue to follow and readjust the medications. Subjective Date patient seen: Oct 19, 2017 Allergies: Coded Allergies: GABAPENTIN (Verified Allergy, Unknown, 10/11/17) OLIVE OIL (Verified Adverse Reaction, Severe, SPASM IN THE COLON, 01/18/14) PREGABALIN (Verified Adverse Reaction, Intermediate, "hypernervous", ) ACETAMINOPHEN (Verified Adverse Reaction, Mild, IRRITABILITY AND ELEVATED BLOOD PRESSURE, 01/18/14) IBUPROFEN (Verified Adverse Reaction, Mild, IRRITABILITY AND ELEVATED BLOOD PRESSURE, 01/18/14) Uncoded Allergies: SSRI (Allergy, Unknown, 10/11/17) Subjective episodes of confusion. noncompliant at times Objective Last 24 Hour Vital Signs Date Time Temp Pulse Resp B/P (MAP) Pulse Ox O2 Delivery O2 Flow Rate FiO2 10/19/17 08:00 97.4 74 21 138/66 98 97.4 10/19/17 04:00 98.6 81 20 142/68 95 98.6 10/19/17 00:00 99.7 75 22 149/70 95 99.7 10/18/17 20:00 98.8 97 20 115/56 95 98.8 Intake and Output 10/18/17 10/19/17 19:00 07:00 Intake Total 2000 ml 240 ml Output Total 300 ml 120 ml Balance 1700 ml 120 ml Intake Oral 2000 ml 240 ml Output Urine Total 100 ml Post Void Residual 300 ml Drainage Total 20 ml Bladder Scan Volume Amount <10 ml # Voids 13 Height (Feet): 5 Height (Inches): 8.00 Weight (Pounds): 185 General Appearance: no apparent distress, alert Neurologic: alert, oriented x 3, responsive, depressed affect Milton Lancaster M.D. Oct 19, 2017 19:31
[2017-10-19 20:00] VITALS: BP 104/57
[2017-10-19] MEDS: Dyna-Hex 2% Top Sol 2oz TOPIC SCH (20:38)
--- NOTE | 2017-10-19 23:35 | General Progress Note ---
Assessment/Plan Assessment/Plan 1. Anemia due to underlying chronic disease. --> Continue to closely monitor. Hemoglobin goal is above 7 --> anemia workup reviewed. Iron 9, TIBC 127, B12 1791, Folate 41 --> Hemoglobin has been above goal, no prbc needed. 2. Anemia of iron deficiency, potentially secondary to osteomyelitis. --> Monitor closely. Trend cbc. 3. Leukocytosis, status post debridement, gram-negative jasmyn infection noted. --> Wbc count improved. Remains on meropenem. Monitor closely. --> Infectious Disease Service following. 4. Anemia due to underlying kidney disease. --> Closely monitor, again improving. 5. Thrombocytosis, likely reactive process from underlying anemia, closely monitor for improvement. 6. Elevated creatinine, chronic kidney disease. 7. Diabetes mellitus, on insulin sliding scale as needed as per primary team. 8. Diastolic dysfunction. Subjective Date patient seen: Oct 19, 2017 Constitutional: Denies: no symptoms, chills, diaphoresis, fever, malaise, weakness, other HEENT: Denies: no symptoms, eye pain, blurred vision, tearing, double vision, ear pain, ear discharge, nose pain, nose congestion, throat pain, throat swelling, mouth pain, mouth swelling, other Cardiovascular: Denies: no symptoms, chest pain, edema, irregular heart rate, lightheadedness, palpitations, syncope, other Respiratory: Denies: no symptoms, cough, orthopnea, shortness of breath, SOB with excertion, SOB at rest, sputum, stridor, wheezing, other Gastrointestinal/Abdominal: Denies: no symptoms, abdomen distended, abdominal pain, black stools, tarry stools, blood in stool, constipated, diarrhea, difficulty swallowing, nausea, poor appetite, poor fluid intake, rectal bleeding , vomiting, other Genitourinary: Denies: no symptoms, burning, discharge, frequency, flank pain, hematuria, incontinence, pain, urgency, other Allergies: Coded Allergies: GABAPENTIN (Verified Allergy, Unknown, 10/11/17) OLIVE OIL (Verified Adverse Reaction, Severe, SPASM IN THE COLON, 01/18/14) PREGABALIN (Verified Adverse Reaction, Intermediate, "hypernervous", ) ACETAMINOPHEN (Verified Adverse Reaction, Mild, IRRITABILITY AND ELEVATED BLOOD PRESSURE, 01/18/14) IBUPROFEN (Verified Adverse Reaction, Mild, IRRITABILITY AND ELEVATED BLOOD PRESSURE, 01/18/14) Uncoded Allergies: SSRI (Allergy, Unknown, 10/11/17) Subjective Confused and noncompliant. No major events overnight. Objective Last 24 Hour Vital Signs Date Time Temp Pulse Resp B/P (MAP) Pulse Ox O2 Delivery O2 Flow Rate FiO2 10/19/17 20:00 98.9 91 20 104/57 97 98.9 10/19/17 08:00 97.4 74 21 138/66 98 97.4 10/19/17 04:00 98.6 81 20 142/68 95 98.6 10/19/17 00:00 99.7 75 22 149/70 95 99.7 Intake and Output 10/18/17 10/19/17 19:00 07:00 Intake Total 2000 ml 240 ml Output Total 300 ml 120 ml Balance 1700 ml 120 ml Intake Oral 2000 ml 240 ml Output Urine Total 100 ml Post Void Residual 300 ml Drainage Total 20 ml Bladder Scan Volume Amount <10 ml # Voids 13 Height (Feet): 5 Height (Inches): 8.00 Weight (Pounds): 185 General Appearance: no apparent distress Respiratory/Chest: decreased breath sounds Abdomen: non tender Giovany Wiggins Oct 19, 2017 23:35
[2017-10-20] VITALS: BP 132/81
[2017-10-20 02:18] LABS: APPEARANCE,URINE TURBID; BILIRUBIN, URINE NEGATIVE (NEGATIVE); COLOR,URINE PALE YELLOW; GLUCOSE, URINE (UA) NEGATIVE (NEGATIVE); KETONES,URINE NEGATIVE (NEGATIVE); LEUKOCYTE ESTERASE ,URINE 3+ (NEGATIVE); NITRITE,URINE NEGATIVE (NEGATIVE); PH,URINE 5 (4.5-8.0); PROTEIN,URINE 3+ (NEGATIVE); UROBILINOGEN,URINE NORMAL MG/DL (0.0-1.0)
[2017-10-20 04:00] VITALS: BP 129/55
[2017-10-20] MEDS: NovoLOG Insulin Flexpen SUBQ SCH ×4 (05:46→20:31)
[2017-10-20 08:00] VITALS: BP 171/70
[2017-10-20 08:12] LABS: BASOPHILS % (AUTO) 0.8 % (0.0-2.0); EOSINOPHILS % (AUTO) 4.7 % (0.0-3.0); HEMATOCRIT 28.5 % (42.0-52.0); HEMOGLOBIN 9.2 G/DL (14.2-18.0); LYMPHOCYTES % (AUTO) 15.7 % (20.0-45.0); MEAN CORPUSCULAR VOLUME 80 FL (80-99); MONOCYTES % (AUTO) 6.9 % (1.0-10.0); PLATELET COUNT 436 K/UL (150-450); RED BLOOD COUNT 3.56 M/UL (4.70-6.10); RED CELL DISTRIBUTION WIDTH 15.2 % (11.6-14.8); WHITE BLOOD COUNT 12.1 K/UL (4.8-10.8)
[2017-10-20 08:47] LABS: ANION GAP 5 mmol/L (5-15); BLOOD UREA NITROGEN 20 mg/dL (7-18); CALCIUM 8.4 MG/DL (8.5-10.1); CARBON DIOXIDE 25 MMOL/L (21-32); CHLORIDE 103 MMOL/L (98-107); CREATININE 1.4 MG/DL (0.55-1.30); POTASSIUM 4.1 MMOL/L (3.5-5.1); SODIUM 133 MMOL/L (136-145)
[2017-10-20] MEDS ORDERED: Dakin's 0.25% (Half Strength) 16oz TOPIC SCH (09:00)
[2017-10-20] MEDS: Heparin 5000 units/ml inj SUBQ SCH ×2 (09:00→20:28)
[2017-10-20] MEDS: Dakin's 0.125% Soln (Quarter Strength) 16oz TOPIC SCH (09:21)
[2017-10-20] MEDS: Docusate 100mg cap ORAL SCH ×3 (09:21→18:17)
[2017-10-20] MEDS: Doxazosin 1mg Tab ORAL SCH ×3 (09:22→18:17)
[2017-10-20] MEDS: Nephrovite tab (Rena-Vite) ORAL SCH (09:22)
[2017-10-20] MEDS: Vitamin D 400 INTLU TAB ORAL SCH (09:22)
[2017-10-20] MEDS: Analgesic Balm 15gm TOPIC SCH ×2 (09:23→18:24)
[2017-10-20] MEDS: Tamsulosin 0.4mg cap ORAL SCH ×2 (09:23→18:17)
--- NOTE | 2017-10-20 11:54 | Nephrology Progress Note ---
Assessment/Plan Problem List: (1) HTN (hypertension) (2) Diabetes mellitus (3) Ulcer of left heel (4) Renal insufficiency Assessment Foot ulcer, left left leg cellulitis, left heel ulcer, ? osteo, leukocytosis, lgt Renal insufficiency acute vs chronic Cr lowering now 1.4 Urinary retention: REFUSES NG Anemia UTI Plan Avoid Nephrotoxics Keep BP in check monitor renal parameters Anemia henry urine studies flomax start cardura Kidney FAMILIA Unremarkable kidneys. Negative for hydronephrosis Note inability of the patient to void with a bladder volume of 337 mL 2D echo :Left ventricular ejection fraction estimated to be 55-60%. No evidence of left ventricular hypertrophy. Subjective ROS Limited/Unobtainable: No Constitutional: Reports: malaise, weakness Objective Objective Last 24 Hour Vital Signs Date Time Temp Pulse Resp B/P (MAP) Pulse Ox O2 Delivery O2 Flow Rate FiO2 10/20/17 09:22 65 171/70 10/20/17 08:00 98.2 65 171/70 98 Room Air 98.2 10/20/17 04:00 98 Room Air 10/20/17 04:00 98.3 64 20 129/55 98 Room Air 98.3 10/20/17 00:00 98.1 94 20 132/81 97 98.1 10/20/17 00:00 97 Room Air 10/19/17 20:00 97 Room Air 10/19/17 20:00 98.9 91 20 104/57 97 98.9 Intake and Output 10/19/17 10/20/17 19:00 07:00 Intake Total 480 ml Output Total 600 ml 800 ml Balance -120 ml -800 ml Intake Oral 480 ml Output Urine Total 600 ml 800 ml Bladder Scan Volume Amount 201-300 ml # Voids 3 3 Laboratory Tests 10/20/17 01:02: Urine Color Pale yellow, Urine Appearance Turbid, Urine pH 5, Urine Specific [place] 1.015, Urine Protein 3+H, Urine Glucose (UA) Negative, Urine Ketones Negative, Urine Occult Blood 2+H, Urine Nitrite Negative, Urine Bilirubin Negative, Urine Urobilinogen Normal, Urine Leukocyte Esterase 3+H, Urine RBC 10- 15H, Urine WBC TntcH, Urine Squamous Epithelial Cells None, Urine Bacteria Few 10/20/17 07:10: White Blood Count 12.1H, Red Blood Count 3.56L, Hemoglobin 9.2L, Hematocrit 28.5L, Mean Corpuscular Volume 80, Mean Corpuscular Hemoglobin 25.9L, Mean Corpuscular Hemoglobin Concent 32.4, Red Cell Distribution Width 15.2H, Platelet Count 436, Mean Platelet Volume 5.4L, Neutrophils (%) (Auto) 72.0, Lymphocytes (%) (Auto) 15.7L, Monocytes (%) (Auto) 6.9, Eosinophils (%) (Auto) 4.7H, Basophils (%) (Auto) 0.8, Sodium Level 133L, Potassium Level 4.1, Chloride Level 103, Carbon Dioxide Level 25, Anion Gap 5, Blood Urea Nitrogen 20H, Creatinine 1.4H, Estimat Glomerular Filtration Rate , Glucose Level 115H, Calcium Level 8.4L Height (Feet): 5 Height (Inches): 8.00 Weight (Pounds): 185 General Appearance: no apparent distress Respiratory/Chest: decreased breath sounds Abdomen: distended Objective no other changes IHSAN REGALADO Oct 20, 2017 11:53
[2017-10-20 12:00] VITALS: BP 135/80
--- NOTE | 2017-10-20 16:16 | General Progress Note ---
Assessment/Plan Problem List: (1) Dementia with behavioral disturbance Assessment & Plan: Dementia with behavior disturbance and agitation. lacks capacity to make decisions lacks capacity to refuse meds PLAN: 1. Continue risperidone 1 mg at bedtime. 2. Continue Remeron 15 at bedtime. 3. Continue to follow and readjust the medications. ICD Codes: F03.91 - Unspecified dementia with behavioral disturbance SNOMED: 8569234953373 Status: stable, progressing Assessment/Plan Dementia with behavior disturbance and agitation. lacks capacity to make decisions lacks capacity to refuse meds PLAN: 1. Continue risperidone 1 mg at bedtime. 2. Continue Remeron 15 at bedtime. 3. Continue to follow and readjust the medications. Subjective Neurologic/Psychiatric: Reports: anxiety, depressed, emotional problems Allergies: Coded Allergies: GABAPENTIN (Verified Allergy, Unknown, 10/11/17) OLIVE OIL (Verified Adverse Reaction, Severe, SPASM IN THE COLON, 01/18/14) PREGABALIN (Verified Adverse Reaction, Intermediate, "hypernervous", ) ACETAMINOPHEN (Verified Adverse Reaction, Mild, IRRITABILITY AND ELEVATED BLOOD PRESSURE, 01/18/14) IBUPROFEN (Verified Adverse Reaction, Mild, IRRITABILITY AND ELEVATED BLOOD PRESSURE, 01/18/14) Uncoded Allergies: SSRI (Allergy, Unknown, 10/11/17) Subjective episodes of confusion. noncompliant at times. took his meds today. Objective Last 24 Hour Vital Signs Date Time Temp Pulse Resp B/P (MAP) Pulse Ox O2 Delivery O2 Flow Rate FiO2 10/20/17 12:00 97.0 80 135/80 98 Room Air 97.0 10/20/17 09:22 65 171/70 10/20/17 08:00 98.2 65 171/70 98 Room Air 98.2 10/20/17 04:00 98 Room Air 10/20/17 04:00 98.3 64 20 129/55 98 Room Air 98.3 10/20/17 00:00 98.1 94 20 132/81 97 98.1 10/20/17 00:00 97 Room Air 10/19/17 20:00 97 Room Air 10/19/17 20:00 98.9 91 20 104/57 97 98.9 Intake and Output 10/19/17 10/20/17 19:00 07:00 Intake Total 480 ml Output Total 600 ml 800 ml Balance -120 ml -800 ml Intake Oral 480 ml Output Urine Total 600 ml 800 ml Bladder Scan Volume Amount 201-300 ml # Voids 3 3 Laboratory Tests 10/20/17 01:02: Urine Color Pale yellow, Urine Appearance Turbid, Urine pH 5, Urine Specific [place] 1.015, Urine Protein 3+H, Urine Glucose (UA) Negative, Urine Ketones Negative, Urine Occult Blood 2+H, Urine Nitrite Negative, Urine Bilirubin Negative, Urine Urobilinogen Normal, Urine Leukocyte Esterase 3+H, Urine RBC 10- 15H, Urine WBC TntcH, Urine Squamous Epithelial Cells None, Urine Bacteria Few 10/20/17 07:10: White Blood Count 12.1H, Red Blood Count 3.56L, Hemoglobin 9.2L, Hematocrit 28.5L, Mean Corpuscular Volume 80, Mean Corpuscular Hemoglobin 25.9L, Mean Corpuscular Hemoglobin Concent 32.4, Red Cell Distribution Width 15.2H, Platelet Count 436, Mean Platelet Volume 5.4L, Neutrophils (%) (Auto) 72.0, Lymphocytes (%) (Auto) 15.7L, Monocytes (%) (Auto) 6.9, Eosinophils (%) (Auto) 4.7H, Basophils (%) (Auto) 0.8, Sodium Level 133L, Potassium Level 4.1, Chloride Level 103, Carbon Dioxide Level 25, Anion Gap 5, Blood Urea Nitrogen 20H, Creatinine 1.4H, Estimat Glomerular Filtration Rate , Glucose Level 115H, Calcium Level 8.4L Height (Feet): 5 Height (Inches): 8.00 Weight (Pounds): 185 General Appearance: no apparent distress, alert Neurologic: oriented x 3, responsive, depressed affect Milton Lancaster M.D. Oct 20, 2017 16:16
[2017-10-20] MEDS: Ertapenem 1 GM in NS 55 ML IVPB SCH (17:05)
--- NOTE | 2017-10-20 17:23 | Podiatric Progress Note ---
Assessment/Plan Patient Hank Nava is a 72 year old male who was admitted on Oct 11, 2017 at 15:22 with Problems: Assessment/Plan A/ 1) Cellulitis left lower extremity 2) Chronic diabetic ulcer left heel with osteomyelitis 3) DM with Diabetic Neuropathy 4) Chronic diabetic ulcer right foot 5) Charcot deformity right foot 6) Obesity 7) Difficulty walking 8) Dementia P/ 1) Hold Wound VAC. Cont wet to dry with Dakin's solution. Will continue with limb salvage. 2) Cont pain management 3) Abx per ID - VRE. Case was d/w ID. Patient is improving. 4) Will follow Subjective Allergies: Coded Allergies: GABAPENTIN (Verified Allergy, Unknown, 10/11/17) OLIVE OIL (Verified Adverse Reaction, Severe, SPASM IN THE COLON, 01/18/14) PREGABALIN (Verified Adverse Reaction, Intermediate, "hypernervous", ) ACETAMINOPHEN (Verified Adverse Reaction, Mild, IRRITABILITY AND ELEVATED BLOOD PRESSURE, 01/18/14) IBUPROFEN (Verified Adverse Reaction, Mild, IRRITABILITY AND ELEVATED BLOOD PRESSURE, 01/18/14) Uncoded Allergies: SSRI (Allergy, Unknown, 10/11/17) Subjective Patient states is his pain has improved. He wants to leave. He wants to be at [facility] if he needs to stay. Objective Exam Last 24 Hour Vital Signs Date Time Temp Pulse Resp B/P (MAP) Pulse Ox O2 Delivery O2 Flow Rate FiO2 10/20/17 12:00 97.0 80 135/80 98 Room Air 97.0 10/20/17 09:22 65 171/70 10/20/17 08:00 98.2 65 171/70 98 Room Air 98.2 10/20/17 04:00 98 Room Air 10/20/17 04:00 98.3 64 20 129/55 98 Room Air 98.3 10/20/17 00:00 98.1 94 20 132/81 97 98.1 10/20/17 00:00 97 Room Air 10/19/17 20:00 97 Room Air 10/19/17 20:00 98.9 91 20 104/57 97 98.9 Laboratory Tests Test 10/20/17 01:02 10/20/17 07:10 Urine Color Pale yellow Urine Appearance Turbid Urine pH 5 (4.5-8.0) Urine Specific [place] 1.015 (1.005-1.035) Urine Protein 3+ (NEGATIVE) H Urine Glucose (UA) Negative (NEGATIVE) Urine Ketones Negative (NEGATIVE) Urine Occult Blood 2+ (NEGATIVE) H Urine Nitrite Negative (NEGATIVE) Urine Bilirubin Negative (NEGATIVE) Urine Urobilinogen Normal MG/DL (0.0-1.0) Urine Leukocyte Esterase 3+ (NEGATIVE) H Urine RBC 10-15 /HPF (0 - 0) H Urine WBC Tntc /HPF (0 - 0) H Urine Squamous Epithelial Cells None /LPF (NONE/OCC) Urine Bacteria Few /HPF (NONE) White Blood Count 12.1 K/UL (4.8-10.8) H Red Blood Count 3.56 M/UL (4.70-6.10) L Hemoglobin 9.2 G/DL (14.2-18.0) L Hematocrit 28.5 % (42.0-52.0) L Mean Corpuscular Volume 80 FL (80-99) Mean Corpuscular Hemoglobin 25.9 PG (27.0-31.0) L Mean Corpuscular Hemoglobin Concent 32.4 G/DL (32.0-36.0) Red Cell Distribution Width 15.2 % (11.6-14.8) H Platelet Count 436 K/UL (150-450) Mean Platelet Volume 5.4 FL (6.5-10.1) L Neutrophils (%) (Auto) 72.0 % (45.0-75.0) Lymphocytes (%) (Auto) 15.7 % (20.0-45.0) L Monocytes (%) (Auto) 6.9 % (1.0-10.0) Eosinophils (%) (Auto) 4.7 % (0.0-3.0) H Basophils (%) (Auto) 0.8 % (0.0-2.0) Sodium Level 133 MMOL/L (136-145) L Potassium Level 4.1 MMOL/L (3.5-5.1) Chloride Level 103 MMOL/L (98-107) Carbon Dioxide Level 25 MMOL/L (21-32) Anion Gap 5 mmol/L (5-15) Blood Urea Nitrogen 20 mg/dL (7-18) H Creatinine 1.4 MG/DL (0.55-1.30) H Estimat Glomerular Filtration Rate mL/min (>60) Glucose Level 115 MG/DL (74-106) H Calcium Level 8.4 MG/DL (8.5-10.1) L Microbiology Date/Time Source Procedure Growth Status 10/14/17 08:50 Blood Blood Culture - Final NO GROWTH AFTER 5 DAYS Complete 10/11/17 17:00 Nasal Nares MRSA Culture - Final NO METHICILLIN RESISTANT STAPH AUREUS... Complete 10/17/17 12:45 Urine,Clean Catch Urine Culture - Final Jessie Albicans Complete 10/13/17 19:20 Foot Left Gram Stain - Final Complete 10/13/17 19:20 Aerobic Culture - Final Klebsiella Pneumoniae Proteus Mirabilis Enterococcus Faecium - Vre Complete 10/13/17 19:20 Foot Left Anaerobic Culture - Final NO ANAEROBES ISOLATED Complete Dermatological Wound Assessment : Exudate Amount: Moderate Dermatological Narrative erythema improved, no warmth to erythema No malodor Minimal pain with palpation Raymundo Velasquez DPM Oct 20, 2017 17:23
--- NOTE | 2017-10-20 17:29 | Infectious Diseases Prog Note ---
Assessment/Plan Assessment/Plan ASSESSMENT AND PLAN: 1. bacteroides bacteremia, proteus/klebsiella/vre left heel/foot wound infection and osteomyelitis on MRI, sepsis, leukocytosis, urine culture with yeast - 10-20,000 - s/p debridement, debridement as needed per podiatry - leukocytosis better, continue to monitor wbc - f/u labs - invanz/daptomycin iv daily approximately to complete 6 week course of abx, approximately another 5 weeks tx (meropenem started on 10/14) - vre colonized - urine culture with 10-20,000 yeast which is likely colonizer but with sig + ua, will recheck ua and culture - d/w Dr. Velasquez 2. Elevated creatinine, chronic renal failure, acute kidney injury. 3. Anemia. 4. The patient with history of diabetes. 5. Hypertension. 6. Blood sugar and blood pressure treatment per primary. 7. Benign prostatic hypertrophy. 8. Atherosclerotic cardiovascular disease. 9. Chronic diastolic congestive heart failure. 10. Anemia. 11. Dizziness, headaches, weakness, and fatigue. 12. Allergies, acetaminophen, gabapentin, ibuprofen, Elavil, pregabalin, and selective serotonin reuptake inhibitors. 13. Social history negative. 14. Family history noncontributory. 15. MAR was noted. 16. Case discussed with RN. 17. Continue treatment per primary consultants. 18. Orders were entered. 19. Notes and records noted. Subjective Constitutional: Denies: fever HEENT: Denies: congestion Respiratory: Denies: shortness of breath Cardiovascular: Denies: chest pain Gastrointestinal/Abdominal: Denies: nausea Genitourinary: Denies: dysuria, hematuria Neurologic: Denies: headache Psychiatric: Denies: depression Skin: Denies: rash Hematologic: Denies: bleeding Musculoskeletal: Denies: pain Allergies: Coded Allergies: GABAPENTIN (Verified Allergy, Unknown, 10/11/17) OLIVE OIL (Verified Adverse Reaction, Severe, SPASM IN THE COLON, 01/18/14) PREGABALIN (Verified Adverse Reaction, Intermediate, "hypernervous", ) ACETAMINOPHEN (Verified Adverse Reaction, Mild, IRRITABILITY AND ELEVATED BLOOD PRESSURE, 01/18/14) IBUPROFEN (Verified Adverse Reaction, Mild, IRRITABILITY AND ELEVATED BLOOD PRESSURE, 01/18/14) Uncoded Allergies: SSRI (Allergy, Unknown, 10/11/17) Objective Vital Signs Last 24 Hour Vital Signs Date Time Temp Pulse Resp B/P (MAP) Pulse Ox O2 Delivery O2 Flow Rate FiO2 10/20/17 12:00 97.0 80 135/80 98 Room Air 97.0 10/20/17 09:22 65 171/70 10/20/17 08:00 98.2 65 171/70 98 Room Air 98.2 10/20/17 04:00 98 Room Air 10/20/17 04:00 98.3 64 20 129/55 98 Room Air 98.3 10/20/17 00:00 98.1 94 20 132/81 97 98.1 10/20/17 00:00 97 Room Air 10/19/17 20:00 97 Room Air 10/19/17 20:00 98.9 91 20 104/57 97 98.9 Height (Feet): 5 Height (Inches): 8.00 Weight (Pounds): 185 General Appearance: no acute distress HEENT: normocephalic, atraumatic, anicteric, mucous membranes moist Respiratory/Chest: lungs clear, normal breath sounds, no accessory muscle use, respiratory distress Cardiovascular: normal peripheral pulses, normal rate, regular rhythm, no gallop/murmur, no JVD Abdomen: normal bowel sounds, soft, non tender, no organomegaly Genitourinary: other - no connolly Extremities: other - left leg with less warmth but some redness, heel wound covered Skin: no rash 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 No acute process otherwise. MRI left foot and ankle - Impression: Positive for progressive osteomyelitis of the posterior calcaneus, since prior study of 08/02/2017 Increasing ulceration of the overlying soft tissues, with possible exposure of the medial aspect of the calcaneal tuberosity. Small amount of gas within the medial soft tissues,. The related open wound or could indicate infection by gas-forming organism Complete tear with retraction of the calcaneal tendon, as described. Fluid in the tibiotalar joint. Probably reactive secondary to the above Diffuse edema of the subcutaneous fat. This could be due to cellulitis or could be related to hemodynamic abnormalities Other findings as noted Findings discussed by phone with Dr. Prieto at the time of interpretation Microbiology Date/Time Source Procedure Growth Status 10/14/17 08:50 Blood Blood Culture - Final NO GROWTH AFTER 5 DAYS Complete 10/11/17 17:00 Nasal Nares MRSA Culture - Final NO METHICILLIN RESISTANT STAPH AUREUS... Complete 10/17/17 12:45 Urine,Clean Catch Urine Culture - Final Jessie Albicans Complete 10/13/17 19:20 Foot Left Gram Stain - Final Complete 10/13/17 19:20 Aerobic Culture - Final Klebsiella Pneumoniae Proteus Mirabilis Enterococcus Faecium - Vre Complete 10/13/17 19:20 Foot Left Anaerobic Culture - Final NO ANAEROBES ISOLATED Complete Laboratory Tests Test 10/20/17 01:02 10/20/17 07:10 Urine Color Pale yellow Urine Appearance Turbid Urine pH 5 (4.5-8.0) Urine Specific [place] 1.015 (1.005-1.035) Urine Protein 3+ (NEGATIVE) H Urine Glucose (UA) Negative (NEGATIVE) Urine Ketones Negative (NEGATIVE) Urine Occult Blood 2+ (NEGATIVE) H Urine Nitrite Negative (NEGATIVE) Urine Bilirubin Negative (NEGATIVE) Urine Urobilinogen Normal MG/DL (0.0-1.0) Urine Leukocyte Esterase 3+ (NEGATIVE) H Urine RBC 10-15 /HPF (0 - 0) H Urine WBC Tntc /HPF (0 - 0) H Urine Squamous Epithelial Cells None /LPF (NONE/OCC) Urine Bacteria Few /HPF (NONE) White Blood Count 12.1 K/UL (4.8-10.8) H Red Blood Count 3.56 M/UL (4.70-6.10) L Hemoglobin 9.2 G/DL (14.2-18.0) L Hematocrit 28.5 % (42.0-52.0) L Mean Corpuscular Volume 80 FL (80-99) Mean Corpuscular Hemoglobin 25.9 PG (27.0-31.0) L Mean Corpuscular Hemoglobin Concent 32.4 G/DL (32.0-36.0) Red Cell Distribution Width 15.2 % (11.6-14.8) H Platelet Count 436 K/UL (150-450) Mean Platelet Volume 5.4 FL (6.5-10.1) L Neutrophils (%) (Auto) 72.0 % (45.0-75.0) Lymphocytes (%) (Auto) 15.7 % (20.0-45.0) L Monocytes (%) (Auto) 6.9 % (1.0-10.0) Eosinophils (%) (Auto) 4.7 % (0.0-3.0) H Basophils (%) (Auto) 0.8 % (0.0-2.0) Sodium Level 133 MMOL/L (136-145) L Potassium Level 4.1 MMOL/L (3.5-5.1) Chloride Level 103 MMOL/L (98-107) Carbon Dioxide Level 25 MMOL/L (21-32) Anion Gap 5 mmol/L (5-15) Blood Urea Nitrogen 20 mg/dL (7-18) H Creatinine 1.4 MG/DL (0.55-1.30) H Estimat Glomerular Filtration Rate mL/min (>60) Glucose Level 115 MG/DL (74-106) H Calcium Level 8.4 MG/DL (8.5-10.1) L Current Medications Medications (Trade) Dose Ordered Sig/Dari Route PRN Reason Start Time Stop Time Status Last Admin Dose Admin Acetaminophen (Tylenol) 650 mg Q4H PRN ORAL Mild Pain (Scale 1-3), fever 10/11/17 16:45 11/10/17 16:44 Amlodipine Besylate (Norvasc) 2.5 mg DAILY ORAL 10/17/17 09:00 11/16/17 08:59 10/20/17 09:22 Bisacodyl (Dulcolax) 10 mg HSPRN PRN RECTAL Constipation 10/11/17 17:15 11/10/17 17:14 Chlorhexidine Gluconate (Sarah-Hex 2%) 1 applic DAILY@1999 TOPIC 10/17/17 20:00 11/16/17 19:59 10/19/17 20:38 Clotrimazole (Lotrimin) 1 applic EVERY 12 HOURS TOPIC 10/14/17 21:00 11/13/17 20:59 10/20/17 09:24 Daptomycin 670 mg/ Sodium Chloride 110 ml @ 220 mls/hr Q24H IV 10/17/17 17:00 10/24/17 16:59 10/19/17 17:19 Dextrose (Dextrose 50%) STAT PRN IV Hypoglycemia 10/11/17 16:45 11/10/17 16:44 Docusate Sodium (Colace) 100 mg TID ORAL 10/12/17 13:30 11/10/17 13:29 10/20/17 13:14 Doxazosin Mesylate (Cardura) 1 mg TID ORAL 10/16/17 13:00 11/15/17 12:59 10/20/17 13:14 Ertapenem 1 gm/ Sodium Chloride 55 ml @ 110 mls/hr Q24H IVPB 10/19/17 16:00 10/24/17 15:59 10/20/17 17:05 Finasteride (Proscar) 5 mg DAILY ORAL 10/12/17 09:00 11/11/17 08:59 10/20/17 09:22 Heparin Sodium (Porcine) (Heparin 5000 units/ml) 5,000 units EVERY 12 HOURS SUBQ 10/11/17 21:00 11/10/17 20:59 10/17/17 22:12 Hydromorphone HCl (Dilaudid) 1 mg Q4H PRN IVP Severe Pain (Pain Scale 7-10) 10/18/17 17:00 10/25/17 16:59 10/20/17 09:23 Insulin Aspart (NovoLOG) BEFORE MEALS AND HS SUBQ 10/11/17 21:00 11/10/17 20:59 10/20/17 17:06 Insulin Detemir (Levemir) 12 units Q24H SUBQ 10/16/17 18:00 11/15/17 17:59 10/19/17 18:33 Menthol/Methyl Salicylate (Bengay) 1 applic BID TOPIC 10/18/17 20:00 11/17/17 19:59 10/20/17 09:23 Mirtazapine (Remeron) 15 mg BEDTIME ORAL 10/11/17 21:00 11/10/17 20:59 10/18/17 21:15 Ondansetron HCl (Zofran) 4 mg Q6H PRN IVP Nausea & Vomiting 10/11/17 16:45 11/10/17 16:44 Polyethylene Glycol (Miralax) 17 gm HSPRN PRN ORAL Constipation 10/11/17 16:45 11/10/17 16:44 Risperidone (RisperDAL) 1 mg BEDTIME ORAL 10/14/17 21:00 11/13/17 20:59 10/18/17 21:14 Sodium Hypochlorite (Dakin's Quarter Strength) 1 applic DAILY TOPIC 10/20/17 09:00 11/19/17 08:59 10/20/17 09:21 Tamsulosin HCl (Flomax) 0.4 mg BID ORAL 10/12/17 13:30 11/10/17 13:29 10/20/17 09:23 Vitamin B Complex/ Vit C/Folic Acid (Nephrovite) 1 tab DAILY ORAL 10/12/17 09:00 11/11/17 08:59 10/20/17 09:22 Vitamin D (Vitamin D) 2,000 intlu DAILY ORAL 10/12/17 09:00 11/11/17 08:59 10/20/17 09:22 LARON HERNANDEZ 8, 2018 17:29
[2017-10-20] MEDS: DAPTOMYCIN IV SCH (18:17)
[2017-10-20] MEDS: NS IV SCH (18:17)
[2017-10-20] MEDS: Levemir Flexpen SUBQ SCH (18:23)
[2017-10-20 20:00] VITALS: BP 165/75
[2017-10-20] MEDS: Dyna-Hex 2% Top Sol 2oz TOPIC SCH (20:28)
--- NOTE | 2017-10-20 22:38 | General Progress Note ---
Assessment/Plan Problem List: (1) Gram-negative bacteremia Assessment & Plan: Bacterioides fragilis bacteremia ICD Codes: R78.81 - Bacteremia SNOMED: 214232971139 (2) Sepsis ICD Codes: A41.9 - Sepsis, unspecified organism SNOMED: 96141245 (3) Progressive osteomyelitis of the posterior calcaneus (4) Cellulitis of left lower extremity ICD Codes: L03.116 - Cellulitis of left lower limb SNOMED: 891828049 (5) L heel diabetic ulcer with concern for osteomyelitis (6) Complete tear with retraction of the calcaneal tendon (7) MISHEL on CKD (8) CKD stage 3 (9) DM2 (diabetes mellitus, type 2) Assessment & Plan: A1C 9.9 ICD Codes: E11.9 - Type 2 diabetes mellitus without complications SNOMED: 83984554 (10) HTN (hypertension) ICD Codes: I10 - Essential (primary) hypertension SNOMED: 85948852 (11) Diabetic neuropathy ICD Codes: E11.40 - Type 2 diabetes mellitus with diabetic neuropathy, unspecified SNOMED: 71870405, 966363716, 321573832 (12) Diabetic nephropathy ICD Codes: E11.21 - Type 2 diabetes mellitus with diabetic nephropathy SNOMED: 45805394, 736745146 Qualifiers: Qualified Codes: E11.21 - Type 2 diabetes mellitus with diabetic nephropathy (13) Hyponatremia ICD Codes: E87.1 - Hypo-osmolality and hyponatremia SNOMED: 68493557 (14) Chronic diabetic ulcer right foot Status: stable Assessment/Plan Podiatry, ID, renal consulted s/p vanco (10/11-10/16) Cont meropenem (10/14-) Cont daptomycin 8mg/kg for VRE (10/17-) Will need total of 6 weeks of IV abx per ID given osteomyelitis s/p cefepime and flagyl (10/11-10/14) F/u cultures--blood culture showing GNR, wound culture showing Klebsiella and Proteus F/u repeat blood cultures--ngtd PICC line placed 10/17/17 Wound care per podiatry Check MRI L foot--shows progressive osteomyelitis, heel ulceration, soft tissue gas, complete tear of Achilles tendon s/p incision and drainage left foot, excisional debridement to the level of muscle left foot, and partial calcanectomy left foot on 10/13/17 NWB LLE Off wound vac now per podiatry IVFs given MISHEL Avoid nephrotoxins Check renal U/S--shows bladder volume 337mL, refused connolly Flomax 0.4mg BID + finasteride 5mg daily Check TTE--EF 55-60% Pain control, bowel regimen Supportive care Cont SNF meds but hold lasix, MTF for now ZENIA DC once authorization for SNF obtained DVT Prophylaxis: HSQ Code Status: Full Hospital Classification Declaration: Based on this initial evaluation, and depending on the patient's clinical course, I anticipate that this patient will require hospitalization for 1-2 days for LLE cellulitis, L heel diabetic ulcer w / concern for osteo, and close respiratory/hemodynamic monitoring. Disposition: Once the patient is stable to leave the hospital, I anticipate the patient will likely be discharged to the following environment: back to SNF Discussed with patient/family, nursing staff, SW/CM, podiatry, ID regarding clinical status, treatment course, and disposition planning. D/w ID re abx on d/ c, PICC. D/w podiatry re wound vac, d/c plan Time of note may not reflect time of encounter Subjective Date patient seen: Oct 20, 2017 Time patient seen: 11:00 ROS Limited/Unobtainable: No Constitutional: Reports: no symptoms HEENT: Reports: no symptoms Cardiovascular: Reports: no symptoms Respiratory: Reports: no symptoms Gastrointestinal/Abdominal: Reports: no symptoms Genitourinary: Reports: no symptoms Neurologic/Psychiatric: Reports: no symptoms Endocrine: Reports: no symptoms Hematologic/Lymphatic: Reports: no symptoms Allergies: Coded Allergies: GABAPENTIN (Verified Allergy, Unknown, 10/11/17) OLIVE OIL (Verified Adverse Reaction, Severe, SPASM IN THE COLON, 01/18/14) PREGABALIN (Verified Adverse Reaction, Intermediate, "hypernervous", ) ACETAMINOPHEN (Verified Adverse Reaction, Mild, IRRITABILITY AND ELEVATED BLOOD PRESSURE, 01/18/14) IBUPROFEN (Verified Adverse Reaction, Mild, IRRITABILITY AND ELEVATED BLOOD PRESSURE, 01/18/14) Uncoded Allergies: SSRI (Allergy, Unknown, 10/11/17) All Systems: reviewed and negative except above Subjective No acute o/n events MRI L foot shows progressive osteomyelitis, heel ulcer, soft tissue gas, complete tear of Achilles tendon s/p incision and drainage left foot, excisional debridement to the level of muscle left foot, and partial calcanectomy left foot POD#7 Blood cultures growing Bacterioides fragilis. Repeat blood cultures neg Wound culture showing proteus and klebsiella--now also showing VRE. D/w ID and pt started on daptomycin Awaiting authorization for SNF as pt's Medicare days have run out Pt is noncompliant with meds Pt c/o foot pain. Lethargic, some chills. Denies n/v, d/c, chest pain, SOB, abd pain Objective Last 24 Hour Vital Signs Date Time Temp Pulse Resp B/P (MAP) Pulse Ox O2 Delivery O2 Flow Rate FiO2 10/20/17 20:00 98.4 68 20 165/75 96 Room Air 98.4 10/20/17 12:00 97.0 80 135/80 98 Room Air 97.0 10/20/17 09:22 65 171/70 10/20/17 08:00 98.2 65 171/70 98 Room Air 98.2 10/20/17 04:00 98 Room Air 10/20/17 04:00 98.3 64 20 129/55 98 Room Air 98.3 10/20/17 00:00 98.1 94 20 132/81 97 98.1 10/20/17 00:00 97 Room Air Intake and Output 10/19/17 10/20/17 19:00 07:00 Intake Total 480 ml Output Total 600 ml 800 ml Balance -120 ml -800 ml Intake Oral 480 ml Output Urine Total 600 ml 800 ml Bladder Scan Volume Amount 201-300 ml # Voids 3 3 Laboratory Tests 10/20/17 01:02: Urine Color Pale yellow, Urine Appearance Turbid, Urine pH 5, Urine Specific [place] 1.015, Urine Protein 3+H, Urine Glucose (UA) Negative, Urine Ketones Negative, Urine Occult Blood 2+H, Urine Nitrite Negative, Urine Bilirubin Negative, Urine Urobilinogen Normal, Urine Leukocyte Esterase 3+H, Urine RBC 10- 15H, Urine WBC TntcH, Urine Squamous Epithelial Cells None, Urine Bacteria Few 10/20/17 07:10: White Blood Count 12.1H, Red Blood Count 3.56L, Hemoglobin 9.2L, Hematocrit 28.5L, Mean Corpuscular Volume 80, Mean Corpuscular Hemoglobin 25.9L, Mean Corpuscular Hemoglobin Concent 32.4, Red Cell Distribution Width 15.2H, Platelet Count 436, Mean Platelet Volume 5.4L, Neutrophils (%) (Auto) 72.0, Lymphocytes (%) (Auto) 15.7L, Monocytes (%) (Auto) 6.9, Eosinophils (%) (Auto) 4.7H, Basophils (%) (Auto) 0.8, Sodium Level 133L, Potassium Level 4.1, Chloride Level 103, Carbon Dioxide Level 25, Anion Gap 5, Blood Urea Nitrogen 20H, Creatinine 1.4H, Estimat Glomerular Filtration Rate , Glucose Level 115H, Calcium Level 8.4L Height (Feet): 5 Height (Inches): 8.00 Weight (Pounds): 185 Objective General: alert, cooperative, no distress, appears stated age Head: normocephalic, without obvious abnormality, atraumatic Eyes: conjunctivae/corneas clear. PERRL, EOM's intact Throat: lips, mucosa, and tongue normal. MMM Neck: supple, symmetrical, trachea midline, and no JVD Lungs: clear to auscultation bilaterally Heart: regular rate and rhythm, S1, S2 normal, no murmur, click, rub or gallop Abdomen: soft, non-tender, non-distended, bowel sounds normal Extremities: extremities normal, atraumatic, no cyanosis, 1-2+ pitting edema BLE Pulses: 2+ and symmetric Skin: Left foot dressing c/d/i, Right foot dressing c/d/i Neurologic: grossly normal, no focal deficits Conner Orozco M.D. Oct 20, 2017 22:38
[2017-10-21] VITALS: BP 159/74
[2017-10-21 04:00] VITALS: BP 138/66
[2017-10-21] MEDS: NovoLOG Insulin Flexpen SUBQ SCH ×4 (05:57→22:10)
[2017-10-21 08:00] VITALS: BP 142/71
[2017-10-21] MEDS: Docusate 100mg cap ORAL SCH ×3 (09:00→18:00)
[2017-10-21] MEDS: Doxazosin 1mg Tab ORAL SCH ×3 (09:00→18:00)
[2017-10-21] MEDS: Analgesic Balm 15gm TOPIC SCH ×2 (09:00→18:20)
[2017-10-21] MEDS: Heparin 5000 units/ml inj SUBQ SCH ×2 (09:00→21:00)
[2017-10-21] MEDS: Tamsulosin 0.4mg cap ORAL SCH ×2 (09:00→18:00)
--- NOTE | 2017-10-21 09:00 | General Progress Note ---
Assessment/Plan Assessment/Plan #. Leukocytosis, status post debridement, gram-negative jasmyn infection noted. --> Wbc count continues to improve. Remains on meropenem. Monitor closely. --> Infectious Disease Service following. #. Anemia due to underlying chronic disease. --> Continue to closely monitor. Hemoglobin goal is above 7 --> anemia workup reviewed. Iron 9, TIBC 127, B12 1791, Folate 41 --> Hemoglobin has been above goal, no prbc needed. #. Anemia of iron deficiency, potentially secondary to osteomyelitis. --> Monitor closely. Trend cbc. #. Anemia due to underlying kidney disease. --> Closely monitor, again improving. #. Thrombocytosis, likely reactive process from underlying anemia, closely monitor for improvement. #. Elevated creatinine, chronic kidney disease. #. Diabetes mellitus, on insulin sliding scale as needed as per primary team. #. Diastolic dysfunction. Subjective Date patient seen: Oct 20, 2017 Constitutional: Denies: no symptoms, chills, diaphoresis, fever, malaise, weakness, other HEENT: Denies: no symptoms, eye pain, blurred vision, tearing, double vision, ear pain, ear discharge, nose pain, nose congestion, throat pain, throat swelling, mouth pain, mouth swelling, other Cardiovascular: Denies: no symptoms, chest pain, edema, irregular heart rate, lightheadedness, palpitations, syncope, other Respiratory: Denies: no symptoms, cough, orthopnea, shortness of breath, SOB with excertion, SOB at rest, sputum, stridor, wheezing, other Gastrointestinal/Abdominal: Denies: no symptoms, abdomen distended, abdominal pain, black stools, tarry stools, blood in stool, constipated, diarrhea, difficulty swallowing, nausea, poor appetite, poor fluid intake, rectal bleeding , vomiting, other Genitourinary: Denies: no symptoms, burning, discharge, frequency, flank pain, hematuria, incontinence, pain, urgency, other Neurologic/Psychiatric: Denies: no symptoms, anxiety, depressed, emotional problems, headache, numbness, paresthesia, pre-existing deficit, seizure, tingling, tremors, weakness, other Hematologic/Lymphatic: Reports: anemia Allergies: Coded Allergies: GABAPENTIN (Verified Allergy, Unknown, 10/11/17) OLIVE OIL (Verified Adverse Reaction, Severe, SPASM IN THE COLON, 01/18/14) PREGABALIN (Verified Adverse Reaction, Intermediate, "hypernervous", ) ACETAMINOPHEN (Verified Adverse Reaction, Mild, IRRITABILITY AND ELEVATED BLOOD PRESSURE, 01/18/14) IBUPROFEN (Verified Adverse Reaction, Mild, IRRITABILITY AND ELEVATED BLOOD PRESSURE, 01/18/14) Uncoded Allergies: SSRI (Allergy, Unknown, 10/11/17) Subjective Lethargic. Remains noncompliant with certain meds. No acute distress. Objective Last 24 Hour Vital Signs Date Time Temp Pulse Resp B/P (MAP) Pulse Ox O2 Delivery O2 Flow Rate FiO2 10/21/17 04:00 Room Air 10/21/17 04:00 98.5 71 20 138/66 97 Room Air 98.5 10/21/17 00:00 98.3 72 20 159/74 95 Room Air 98.3 10/21/17 00:00 Room Air 10/20/17 20:00 98.4 68 20 165/75 96 Room Air 98.4 10/20/17 20:00 Room Air 10/20/17 12:00 97.0 80 135/80 98 Room Air 97.0 10/20/17 09:22 65 171/70 Intake and Output 10/20/17 10/21/17 19:00 07:00 Intake Total 480 ml 360 ml Output Total 600 ml 1000 ml Balance -120 ml -640 ml Intake Oral 480 ml 250 ml IV Total 110 ml Output Urine Total 600 ml 1000 ml # Voids 4 3 # Bowel Movements 1 Height (Feet): 5 Height (Inches): 8.00 Weight (Pounds): 185 General Appearance: lethargic Respiratory/Chest: decreased breath sounds Abdomen: non tender, soft Edema: trace edema Skin: warm/dry Giovany Wiggins Oct 21, 2017 09:00
[2017-10-21] MEDS: Dakin's 0.125% Soln (Quarter Strength) 16oz TOPIC SCH (10:08)
[2017-10-21] MEDS: Nephrovite tab (Rena-Vite) ORAL SCH (10:19)
[2017-10-21] MEDS: Vitamin D 400 INTLU TAB ORAL SCH (10:20)
[2017-10-21 12:00] VITALS: BP 122/58
--- NOTE | 2017-10-21 13:45 | Nephrology Progress Note ---
Assessment/Plan Problem List: (1) HTN (hypertension) (2) Diabetes mellitus (3) Ulcer of left heel (4) Renal insufficiency Assessment Foot ulcer, left left leg cellulitis, left heel ulcer, ? osteo, leukocytosis, lgt Renal insufficiency acute vs chronic Cr lowering now 1.4 Urinary retention: REFUSES NG Anemia UTI Plan Avoid Nephrotoxics Keep BP in check monitor renal parameters Anemia henry urine studies flomax start cardura Kidney FAMILIA Unremarkable kidneys. Negative for hydronephrosis Note inability of the patient to void with a bladder volume of 337 mL 2D echo :Left ventricular ejection fraction estimated to be 55-60%. No evidence of left ventricular hypertrophy. Subjective ROS Limited/Unobtainable: No Constitutional: Reports: malaise Objective Objective Last 24 Hour Vital Signs Date Time Temp Pulse Resp B/P (MAP) Pulse Ox O2 Delivery O2 Flow Rate FiO2 10/21/17 09:00 65 142/71 10/21/17 08:00 97.7 65 19 142/71 97 Room Air 97.7 10/21/17 04:00 Room Air 10/21/17 04:00 98.5 71 20 138/66 97 Room Air 98.5 10/21/17 00:00 98.3 72 20 159/74 95 Room Air 98.3 10/21/17 00:00 Room Air 10/20/17 20:00 98.4 68 20 165/75 96 Room Air 98.4 10/20/17 20:00 Room Air Intake and Output 10/20/17 10/21/17 19:00 07:00 Intake Total 480 ml 360 ml Output Total 600 ml 1000 ml Balance -120 ml -640 ml Intake Oral 480 ml 250 ml IV Total 110 ml Output Urine Total 600 ml 1000 ml # Voids 4 3 # Bowel Movements 1 Height (Feet): 5 Height (Inches): 8.00 Weight (Pounds): 185 General Appearance: no apparent distress Objective no other changes IHSAN REGALADO Oct 21, 2017 13:45
--- NOTE | 2017-10-21 14:01 | Podiatric Progress Note ---
Assessment/Plan Patient Hank Nava is a 72 year old male who was admitted on Oct 11, 2017 at 15:22 with Problems: Assessment/Plan A/ 1) Cellulitis left lower extremity 2) Chronic diabetic ulcer left heel with osteomyelitis 3) DM with Diabetic Neuropathy 4) Chronic diabetic ulcer right foot 5) Charcot deformity right foot 6) Obesity 7) Difficulty walking 8) Dementia P/ 1) S/p debridement and partial calcanectomy on 10/13/2017. Hold Wound VAC. Cont wet to dry with Dakin's solution. Will continue with limb salvage. 2) Cont pain management 3) Abx per ID - VRE. Patient is improving. 4) Will follow, pending discharge once HMO auth obtained for SNF placement. Subjective Allergies: Coded Allergies: GABAPENTIN (Verified Allergy, Unknown, 10/11/17) OLIVE OIL (Verified Adverse Reaction, Severe, SPASM IN THE COLON, 01/18/14) PREGABALIN (Verified Adverse Reaction, Intermediate, "hypernervous", ) ACETAMINOPHEN (Verified Adverse Reaction, Mild, IRRITABILITY AND ELEVATED BLOOD PRESSURE, 01/18/14) IBUPROFEN (Verified Adverse Reaction, Mild, IRRITABILITY AND ELEVATED BLOOD PRESSURE, 01/18/14) Uncoded Allergies: SSRI (Allergy, Unknown, 10/11/17) Subjective Patient refusing dressing change today. Objective Exam Last 24 Hour Vital Signs Date Time Temp Pulse Resp B/P (MAP) Pulse Ox O2 Delivery O2 Flow Rate FiO2 10/21/17 09:00 65 142/71 10/21/17 08:00 97.7 65 19 142/71 97 Room Air 97.7 10/21/17 04:00 Room Air 10/21/17 04:00 98.5 71 20 138/66 97 Room Air 98.5 10/21/17 00:00 98.3 72 20 159/74 95 Room Air 98.3 10/21/17 00:00 Room Air 10/20/17 20:00 98.4 68 20 165/75 96 Room Air 98.4 10/20/17 20:00 Room Air Microbiology Date/Time Source Procedure Growth Status 10/14/17 08:50 Blood Blood Culture - Final NO GROWTH AFTER 5 DAYS Complete 10/11/17 17:00 Nasal Nares MRSA Culture - Final NO METHICILLIN RESISTANT STAPH AUREUS... Complete 10/20/17 01:02 Urine,Clean Catch Urine Culture - Preliminary Resulted 10/13/17 19:20 Foot Left Gram Stain - Final Complete 10/13/17 19:20 Aerobic Culture - Final Klebsiella Pneumoniae Proteus Mirabilis Enterococcus Faecium - Vre Complete 10/13/17 19:20 Foot Left Anaerobic Culture - Final NO ANAEROBES ISOLATED Complete Dermatological Wound Assessment : Exudate Amount: Moderate Dermatological Narrative erythema and edema noted. warmth is normal. right foot stable left foot dressed Raymundo Velasquez DPM Oct 21, 2017 14:01
[2017-10-21 16:00] VITALS: BP 128/71
[2017-10-21] MEDS: Ertapenem 1 GM in NS 55 ML IVPB SCH (16:13)
[2017-10-21] MEDS ORDERED: Tubing IV Secondary IV ONE (16:41)
[2017-10-21] MEDS: DAPTOMYCIN IV SCH (17:12)
[2017-10-21] MEDS: NS IV SCH (17:12)
--- NOTE | 2017-10-21 17:27 | General Progress Note ---
Assessment/Plan Problem List: (1) Gram-negative bacteremia Assessment & Plan: Bacterioides fragilis bacteremia ICD Codes: R78.81 - Bacteremia SNOMED: 652229519473 (2) Sepsis ICD Codes: A41.9 - Sepsis, unspecified organism SNOMED: 32963674 (3) Progressive osteomyelitis of the posterior calcaneus (4) Cellulitis of left lower extremity ICD Codes: L03.116 - Cellulitis of left lower limb SNOMED: 357538593 (5) L heel diabetic ulcer with concern for osteomyelitis (6) Complete tear with retraction of the calcaneal tendon (7) MISHEL on CKD (8) CKD stage 3 (9) DM2 (diabetes mellitus, type 2) Assessment & Plan: A1C 9.9 ICD Codes: E11.9 - Type 2 diabetes mellitus without complications SNOMED: 35882881 (10) HTN (hypertension) ICD Codes: I10 - Essential (primary) hypertension SNOMED: 74218479 (11) Diabetic neuropathy ICD Codes: E11.40 - Type 2 diabetes mellitus with diabetic neuropathy, unspecified SNOMED: 84823478, 816046708, 418667763 (12) Diabetic nephropathy ICD Codes: E11.21 - Type 2 diabetes mellitus with diabetic nephropathy SNOMED: 65243972, 675916930 Qualifiers: Qualified Codes: E11.21 - Type 2 diabetes mellitus with diabetic nephropathy (13) Hyponatremia ICD Codes: E87.1 - Hypo-osmolality and hyponatremia SNOMED: 39339682 (14) Chronic diabetic ulcer right foot (15) Medical non-compliance ICD Codes: Z91.19 - Patient's noncompliance with other medical treatment and regimen SNOMED: 475274764 Status: stable Assessment/Plan Podiatry, ID, renal consulted s/p vanco (10/11-10/16) Cont meropenem (10/14-) Cont daptomycin 8mg/kg for VRE (10/17-) Will need total of 6 weeks of IV abx per ID given osteomyelitis s/p cefepime and flagyl (10/11-10/14) F/u cultures--blood culture showing GNR, wound culture showing Klebsiella and Proteus F/u repeat blood cultures--ngtd PICC line placed 10/17/17 Wound care per podiatry Check MRI L foot--shows progressive osteomyelitis, heel ulceration, soft tissue gas, complete tear of Achilles tendon s/p incision and drainage left foot, excisional debridement to the level of muscle left foot, and partial calcanectomy left foot on 10/13/17 NWB LLE Off wound vac now per podiatry IVFs given MISHEL Avoid nephrotoxins Check renal U/S--shows bladder volume 337mL, refused connolly Flomax 0.4mg BID + finasteride 5mg daily Check TTE--EF 55-60% Pain control, bowel regimen Supportive care Cont SNF meds but hold lasix, MTF for now ZENIA DC once authorization for SNF obtained DVT Prophylaxis: HSQ Code Status: Full Hospital Classification Declaration: Based on this initial evaluation, and depending on the patient's clinical course, I anticipate that this patient will require hospitalization for 0-1 days for LLE cellulitis, L heel diabetic ulcer w / concern for osteo, and close respiratory/hemodynamic monitoring. Disposition: Once the patient is stable to leave the hospital, I anticipate the patient will likely be discharged to the following environment: back to SNF Discussed with patient/family, nursing staff, SW/CM, podiatry, ID regarding clinical status, treatment course, and disposition planning. D/w ID re abx on d/ c, PICC. D/w podiatry re wound vac, d/c plan Time of note may not reflect time of encounter Subjective Date patient seen: Oct 21, 2017 Time patient seen: 10:00 ROS Limited/Unobtainable: No Constitutional: Reports: weakness HEENT: Reports: no symptoms Cardiovascular: Reports: no symptoms Respiratory: Reports: no symptoms Gastrointestinal/Abdominal: Reports: no symptoms Genitourinary: Reports: no symptoms Neurologic/Psychiatric: Reports: no symptoms Endocrine: Reports: no symptoms Hematologic/Lymphatic: Reports: no symptoms Allergies: Coded Allergies: GABAPENTIN (Verified Allergy, Unknown, 10/11/17) OLIVE OIL (Verified Adverse Reaction, Severe, SPASM IN THE COLON, 01/18/14) PREGABALIN (Verified Adverse Reaction, Intermediate, "hypernervous", ) ACETAMINOPHEN (Verified Adverse Reaction, Mild, IRRITABILITY AND ELEVATED BLOOD PRESSURE, 01/18/14) IBUPROFEN (Verified Adverse Reaction, Mild, IRRITABILITY AND ELEVATED BLOOD PRESSURE, 01/18/14) Uncoded Allergies: SSRI (Allergy, Unknown, 10/11/17) Subjective No acute o/n events MRI L foot shows progressive osteomyelitis, heel ulcer, soft tissue gas, complete tear of Achilles tendon s/p incision and drainage left foot, excisional debridement to the level of muscle left foot, and partial calcanectomy left foot POD#8 Blood cultures growing Bacterioides fragilis. Repeat blood cultures neg Wound culture showing proteus and klebsiella--now also showing VRE. D/w ID and pt started on daptomycin Awaiting authorization for SNF as pt's Medicare days have run out Pt is noncompliant with meds Pt c/o foot pain. Lethargic, some chills. Denies n/v, d/c, chest pain, SOB, abd pain Objective Last 24 Hour Vital Signs Date Time Temp Pulse Resp B/P (MAP) Pulse Ox O2 Delivery O2 Flow Rate FiO2 10/21/17 12:00 97.9 67 18 122/58 97 Room Air 97.9 10/21/17 09:00 65 142/71 10/21/17 08:00 97.7 65 19 142/71 97 Room Air 97.7 10/21/17 04:00 Room Air 10/21/17 04:00 98.5 71 20 138/66 97 Room Air 98.5 10/21/17 00:00 98.3 72 20 159/74 95 Room Air 98.3 10/21/17 00:00 Room Air 10/20/17 20:00 98.4 68 20 165/75 96 Room Air 98.4 10/20/17 20:00 Room Air Intake and Output 10/20/17 10/21/17 19:00 07:00 Intake Total 480 ml 360 ml Output Total 600 ml 1000 ml Balance -120 ml -640 ml Intake Oral 480 ml 250 ml IV Total 110 ml Output Urine Total 600 ml 1000 ml # Voids 4 3 # Bowel Movements 1 Height (Feet): 5 Height (Inches): 8.00 Weight (Pounds): 185 Objective General: alert, cooperative, no distress, appears stated age Head: normocephalic, without obvious abnormality, atraumatic Eyes: conjunctivae/corneas clear. PERRL, EOM's intact Throat: lips, mucosa, and tongue normal. MMM Neck: supple, symmetrical, trachea midline, and no JVD Lungs: clear to auscultation bilaterally Heart: regular rate and rhythm, S1, S2 normal, no murmur, click, rub or gallop Abdomen: soft, non-tender, non-distended, bowel sounds normal Extremities: extremities normal, atraumatic, no cyanosis, 1-2+ pitting edema BLE Pulses: 2+ and symmetric Skin: Left foot dressing c/d/i, Right foot dressing c/d/i Neurologic: grossly normal, no focal deficits Conner Orozco M.D. Oct 21, 2017 17:27
[2017-10-21] MEDS: Levemir Flexpen SUBQ SCH (18:12)
[2017-10-21 20:00] VITALS: BP 151/73
--- NOTE | 2017-10-21 21:55 | General Progress Note ---
Assessment/Plan Problem List: (1) Dementia with behavioral disturbance Assessment & Plan: Dementia with behavior disturbance and agitation. lacks capacity to make decisions lacks capacity to refuse meds PLAN: 1. Continue risperidone 1 mg at bedtime. 2. Continue Remeron 15 at bedtime. 3. Continue to follow and readjust the medications. ICD Codes: F03.91 - Unspecified dementia with behavioral disturbance SNOMED: 9146926935660 Assessment/Plan Dementia with behavior disturbance and agitation. lacks capacity to make decisions lacks capacity to refuse meds PLAN: 1. Continue risperidone 1 mg at bedtime. 2. Continue Remeron 15 at bedtime. 3. Continue to follow and readjust the medications. Subjective Allergies: Coded Allergies: GABAPENTIN (Verified Allergy, Unknown, 10/11/17) OLIVE OIL (Verified Adverse Reaction, Severe, SPASM IN THE COLON, 01/18/14) PREGABALIN (Verified Adverse Reaction, Intermediate, "hypernervous", ) ACETAMINOPHEN (Verified Adverse Reaction, Mild, IRRITABILITY AND ELEVATED BLOOD PRESSURE, 01/18/14) IBUPROFEN (Verified Adverse Reaction, Mild, IRRITABILITY AND ELEVATED BLOOD PRESSURE, 01/18/14) Uncoded Allergies: SSRI (Allergy, Unknown, 10/11/17) Subjective episodes of confusion. noncompliant at times. took his meds today. Objective Last 24 Hour Vital Signs Date Time Temp Pulse Resp B/P (MAP) Pulse Ox O2 Delivery O2 Flow Rate FiO2 10/21/17 20:00 98.2 75 20 151/73 96 Room Air 98.2 10/21/17 16:00 97.7 59 20 128/71 98 97.7 10/21/17 12:00 97.9 67 18 122/58 97 Room Air 97.9 10/21/17 09:00 65 142/71 10/21/17 08:00 97.7 65 19 142/71 97 Room Air 97.7 10/21/17 04:00 Room Air 10/21/17 04:00 98.5 71 20 138/66 97 Room Air 98.5 10/21/17 00:00 98.3 72 20 159/74 95 Room Air 98.3 10/21/17 00:00 Room Air Intake and Output 10/20/17 10/21/17 19:00 07:00 Intake Total 480 ml 360 ml Output Total 600 ml 1000 ml Balance -120 ml -640 ml Intake Oral 480 ml 250 ml IV Total 110 ml Output Urine Total 600 ml 1000 ml # Voids 4 3 # Bowel Movements 1 Height (Feet): 5 Height (Inches): 8.00 Weight (Pounds): 185 Milton Lancaster M.D. Oct 21, 2017 21:55
[2017-10-21] MEDS: Dyna-Hex 2% Top Sol 2oz TOPIC SCH (22:08)
[2017-10-22] VITALS: BP 116/69
[2017-10-22 04:36] VITALS: BP 130/62
[2017-10-22] MEDS: NovoLOG Insulin Flexpen SUBQ SCH ×4 (06:58→21:48)
[2017-10-22 07:02] LABS: ANION GAP 4 mmol/L (5-15); BLOOD UREA NITROGEN 21 mg/dL (7-18); CARBON DIOXIDE 27 MMOL/L (21-32); CHLORIDE 105 MMOL/L (98-107); CREATININE 1.5 MG/DL (0.55-1.30); POTASSIUM 4.5 MMOL/L (3.5-5.1); SODIUM 136 MMOL/L (136-145)
[2017-10-22 07:39] LABS: BASOPHILS % (AUTO) 1.2 % (0.0-2.0); EOSINOPHILS % (AUTO) 5.8 % (0.0-3.0); HEMATOCRIT 26.9 % (42.0-52.0); HEMOGLOBIN 8.9 G/DL (14.2-18.0); LYMPHOCYTES % (AUTO) 20.3 % (20.0-45.0); MEAN CORPUSCULAR VOLUME 79 FL (80-99); NEUTROPHILS % (AUTO) 67.7 % (45.0-75.0); PLATELET COUNT 433 K/UL (150-450); RED BLOOD COUNT 3.42 M/UL (4.70-6.10); RED CELL DISTRIBUTION WIDTH 15.3 % (11.6-14.8); WHITE BLOOD COUNT 11.2 K/UL (4.8-10.8)
--- NOTE | 2017-10-22 07:41 | Nephrology Progress Note ---
Assessment/Plan Problem List: (1) HTN (hypertension) (2) Diabetes mellitus (3) Ulcer of left heel (4) Renal insufficiency Assessment Foot ulcer, left left leg cellulitis, left heel ulcer, ? osteo, leukocytosis, lgt Renal insufficiency acute vs chronic Cr lowering now 1.5 Urinary retention: REFUSES NG Anemia UTI Plan Avoid Nephrotoxics Keep BP in check monitor renal parameters Anemia henry urine studies flomax start cardura Kidney FAMILIA Unremarkable kidneys. Negative for hydronephrosis Note inability of the patient to void with a bladder volume of 337 mL 2D echo :Left ventricular ejection fraction estimated to be 55-60%. No evidence of left ventricular hypertrophy. Subjective ROS Limited/Unobtainable: No Constitutional: Reports: malaise Objective Objective Last 24 Hour Vital Signs Date Time Temp Pulse Resp B/P (MAP) Pulse Ox O2 Delivery O2 Flow Rate FiO2 10/22/17 04:36 98.4 59 17 130/62 96 98.4 10/22/17 00:00 98.4 76 20 116/69 99 Room Air 98.4 10/21/17 20:00 98.2 75 20 151/73 96 Room Air 98.2 10/21/17 16:00 97.7 59 20 128/71 98 97.7 10/21/17 12:00 97.9 67 18 122/58 97 Room Air 97.9 10/21/17 09:00 65 142/71 10/21/17 08:00 97.7 65 19 142/71 97 Room Air 97.7 Intake and Output 10/21/17 10/22/17 19:00 07:00 Intake Total 140 ml 480 ml Output Total 450 ml 300 ml Balance -310 ml 180 ml Intake Oral 140 ml 480 ml Output Urine Total 450 ml 300 ml # Voids 5 2 Laboratory Tests 10/22/17 06:00: White Blood Count 11.2H, Red Blood Count 3.42L, Hemoglobin 8.9L, Hematocrit 26.9L, Mean Corpuscular Volume 79L, Mean Corpuscular Hemoglobin 26.1L, Mean Corpuscular Hemoglobin Concent 33.2, Red Cell Distribution Width 15.3H, Platelet Count 433, Mean Platelet Volume 5.5L, Neutrophils (%) (Auto) 67.7, Lymphocytes (%) (Auto) 20.3, Monocytes (%) (Auto) 5.0, Eosinophils (%) (Auto) 5.8H, Basophils (%) (Auto) 1.2, Sodium Level 136, Potassium Level 4.5, Chloride Level 105, Carbon Dioxide Level 27, Anion Gap 4L, Blood Urea Nitrogen 21H, Creatinine 1.5H, Estimat Glomerular Filtration Rate , Glucose Level 186H, Calcium Level 8.0L, Total Creatine Kinase [Pending] Height (Feet): 5 Height (Inches): 8.00 Weight (Pounds): 185 General Appearance: no apparent distress Objective no other changes IHSAN REGALADO Oct 22, 2017 07:41
[2017-10-22 08:00] VITALS: BP 138/60
[2017-10-22 08:01] LABS: CREATINE KINASE 86 U/L (26-308)
[2017-10-22] MEDS: Docusate 100mg cap ORAL SCH ×3 (09:00→17:23)
[2017-10-22] MEDS: Dakin's 0.125% Soln (Quarter Strength) 16oz TOPIC SCH (09:00)
[2017-10-22] MEDS: Doxazosin 1mg Tab ORAL SCH ×3 (09:00→17:24)
[2017-10-22] MEDS: Analgesic Balm 15gm TOPIC SCH ×2 (09:00→17:28)
[2017-10-22] MEDS: Tamsulosin 0.4mg cap ORAL SCH ×2 (09:00→17:24)
[2017-10-22] MEDS: Nephrovite tab (Rena-Vite) ORAL SCH (09:00)
[2017-10-22] MEDS: Vitamin D 1000 IU Tab ORAL SCH (09:00)
[2017-10-22] MEDS: Heparin 5000 units/ml inj SUBQ SCH ×2 (09:00→20:48)
--- NOTE | 2017-10-22 10:36 | General Progress Note ---
Assessment/Plan Assessment/Plan #. Leukocytosis, status post debridement, gram-negative jasmyn infection noted. --> Wbc count improving. --> Remains on meropenem. Monitor closely. --> Infectious Disease Service following. #. Anemia due to underlying chronic disease. --> Continue to closely monitor. Hemoglobin goal is above 7 --> anemia workup reviewed. Iron 9, TIBC 127, B12 1791, Folate 41 --> Hemoglobin has been above goal, no prbc needed. #. Anemia of iron deficiency, potentially secondary to osteomyelitis. --> Monitor closely. Trend cbc. #. Anemia due to underlying kidney disease. --> Closely monitor, again improving. #. Thrombocytosis, likely reactive process from underlying anemia, closely monitor for improvement. #. Elevated creatinine, chronic kidney disease. #. Diabetes mellitus, on insulin sliding scale as needed as per primary team. #. Diastolic dysfunction. Subjective Date patient seen: Oct 21, 2017 Constitutional: Denies: no symptoms, chills, diaphoresis, fever, malaise, weakness, other HEENT: Denies: no symptoms, eye pain, blurred vision, tearing, double vision, ear pain, ear discharge, nose pain, nose congestion, throat pain, throat swelling, mouth pain, mouth swelling, other Cardiovascular: Denies: no symptoms, chest pain, edema, irregular heart rate, lightheadedness, palpitations, syncope, other Respiratory: Denies: no symptoms, cough, orthopnea, shortness of breath, SOB with excertion, SOB at rest, sputum, stridor, wheezing, other Gastrointestinal/Abdominal: Denies: no symptoms, abdomen distended, abdominal pain, black stools, tarry stools, blood in stool, constipated, diarrhea, difficulty swallowing, nausea, poor appetite, poor fluid intake, rectal bleeding , vomiting, other Hematologic/Lymphatic: Reports: anemia Allergies: Coded Allergies: GABAPENTIN (Verified Allergy, Unknown, 10/11/17) OLIVE OIL (Verified Adverse Reaction, Severe, SPASM IN THE COLON, 01/18/14) PREGABALIN (Verified Adverse Reaction, Intermediate, "hypernervous", ) ACETAMINOPHEN (Verified Adverse Reaction, Mild, IRRITABILITY AND ELEVATED BLOOD PRESSURE, 01/18/14) IBUPROFEN (Verified Adverse Reaction, Mild, IRRITABILITY AND ELEVATED BLOOD PRESSURE, 01/18/14) Uncoded Allergies: SSRI (Allergy, Unknown, 10/11/17) Subjective Lethargic. Remains noncompliant with certain meds. Leukocytosis improving. Objective Last 24 Hour Vital Signs Date Time Temp Pulse Resp B/P (MAP) Pulse Ox O2 Delivery O2 Flow Rate FiO2 10/22/17 09:00 59 130/62 10/22/17 09:00 67 10/22/17 08:00 98.2 59 20 138/60 99 98.2 10/22/17 04:36 98.4 59 17 130/62 96 98.4 10/22/17 00:00 98.4 76 20 116/69 99 Room Air 98.4 10/21/17 20:00 98.2 75 20 151/73 96 Room Air 98.2 10/21/17 16:00 97.7 59 20 128/71 98 97.7 10/21/17 12:00 97.9 67 18 122/58 97 Room Air 97.9 Intake and Output 10/21/17 10/22/17 19:00 07:00 Intake Total 140 ml 480 ml Output Total 450 ml 300 ml Balance -310 ml 180 ml Intake Oral 140 ml 480 ml Output Urine Total 450 ml 300 ml # Voids 5 2 Laboratory Tests 10/22/17 06:00: White Blood Count 11.2H, Red Blood Count 3.42L, Hemoglobin 8.9L, Hematocrit 26.9L, Mean Corpuscular Volume 79L, Mean Corpuscular Hemoglobin 26.1L, Mean Corpuscular Hemoglobin Concent 33.2, Red Cell Distribution Width 15.3H, Platelet Count 433, Mean Platelet Volume 5.5L, Neutrophils (%) (Auto) 67.7, Lymphocytes (%) (Auto) 20.3, Monocytes (%) (Auto) 5.0, Eosinophils (%) (Auto) 5.8H, Basophils (%) (Auto) 1.2, Sodium Level 136, Potassium Level 4.5, Chloride Level 105, Carbon Dioxide Level 27, Anion Gap 4L, Blood Urea Nitrogen 21H, Creatinine 1.5H, Estimat Glomerular Filtration Rate , Glucose Level 186H, Calcium Level 8.0L, Total Creatine Kinase 86 Height (Feet): 5 Height (Inches): 8.00 Weight (Pounds): 185 General Appearance: lethargic, confused Respiratory/Chest: decreased breath sounds Abdomen: non tender, soft Kleynberg,Giovany L. Oct 22, 2017 10:36
[2017-10-22 12:00] VITALS: BP 131/72
[2017-10-22] MEDS: Ertapenem 1 GM in NS 55 ML IVPB SCH (15:46)
[2017-10-22 16:00] VITALS: BP 113/41
--- NOTE | 2017-10-22 16:39 | Infectious Diseases Prog Note ---
Assessment/Plan Assessment/Plan ASSESSMENT AND PLAN: 1. bacteroides bacteremia, proteus/klebsiella/vre left heel/foot wound infection and osteomyelitis on MRI, sepsis, leukocytosis, urine culture with yeast - 10-20,000 - s/p debridement, debridement as needed per podiatry - some left leg redness persists - leukocytosis better, continue to monitor wbc - continue wound care per podiatry - f/u labs, surveillance blood cultures negative - invanz/daptomycin iv for 6 weeks course of abx, meropenem started on 10/14 - vre colonized - urine culture with persistent yeast and sig + ua - diflucan for 5 days started today - 10/22 2. Elevated creatinine, chronic renal failure, acute kidney injury. 3. Anemia. 4. The patient with history of diabetes. 5. Hypertension. 6. Blood sugar and blood pressure treatment per primary. 7. Benign prostatic hypertrophy. 8. Atherosclerotic cardiovascular disease. 9. Chronic diastolic congestive heart failure. 10. Anemia. 11. Dizziness, headaches, weakness, and fatigue. 12. Allergies, acetaminophen, gabapentin, ibuprofen, Elavil, pregabalin, and selective serotonin reuptake inhibitors. 13. Social history negative. 14. Family history noncontributory. 15. MAR was noted. 16. Case discussed with RN. 17. Continue treatment per primary consultants. 18. Orders were entered. 19. Notes and records noted. Subjective Constitutional: Denies: fever HEENT: Denies: congestion Respiratory: Denies: shortness of breath Cardiovascular: Denies: chest pain Gastrointestinal/Abdominal: Denies: nausea Genitourinary: Reports: other - no connolly, Denies: dysuria Psychiatric: Reports: depression Skin: Denies: rash Hematologic: Denies: bleeding Musculoskeletal: Reports: pain - controlled leg pain Allergies: Coded Allergies: GABAPENTIN (Verified Allergy, Unknown, 10/11/17) OLIVE OIL (Verified Adverse Reaction, Severe, SPASM IN THE COLON, 01/18/14) PREGABALIN (Verified Adverse Reaction, Intermediate, "hypernervous", ) ACETAMINOPHEN (Verified Adverse Reaction, Mild, IRRITABILITY AND ELEVATED BLOOD PRESSURE, 01/18/14) IBUPROFEN (Verified Adverse Reaction, Mild, IRRITABILITY AND ELEVATED BLOOD PRESSURE, 01/18/14) Uncoded Allergies: SSRI (Allergy, Unknown, 10/11/17) Objective Vital Signs Last 24 Hour Vital Signs Date Time Temp Pulse Resp B/P (MAP) Pulse Ox O2 Delivery O2 Flow Rate FiO2 10/22/17 15:55 98.2 10/22/17 12:21 98.2 10/22/17 12:00 97.7 61 20 131/72 97 97.7 10/22/17 11:51 98.2 10/22/17 09:00 59 130/62 10/22/17 09:00 67 10/22/17 08:00 98.2 59 20 138/60 99 98.2 10/22/17 04:36 98.4 59 17 130/62 96 98.4 10/22/17 00:00 98.4 76 20 116/69 99 Room Air 98.4 10/21/17 20:00 98.2 75 20 151/73 96 Room Air 98.2 Height (Feet): 5 Height (Inches): 8.00 Weight (Pounds): 185 General Appearance: no acute distress HEENT: normocephalic, atraumatic, anicteric, mucous membranes moist Respiratory/Chest: lungs clear, normal breath sounds, no accessory muscle use Cardiovascular: normal rate, regular rhythm, no gallop/murmur, no JVD Abdomen: normal bowel sounds, soft, non tender, no organomegaly, non distended Genitourinary: other - no connolly, no cva pain Extremities: no cyanosis, other - some left leg redness noted with mild warmth , wound covered Skin: no rash Neurologic/Psychiatric: plush weaver II-XII grossly normal, alert, oriented x 3, responsive, other - depressed affect Lymphatic: no neck adenopathy Musculoskeletal: no effusion Objective Chest x-ray - Impression: Bibasilar atelectasis and elevation of the right hemidiaphragm. No acute process otherwise. MRI left foot and ankle - Impression: Positive for progressive osteomyelitis of the posterior calcaneus, since prior study of 08/02/2017 Increasing ulceration of the overlying soft tissues, with possible exposure of the medial aspect of the calcaneal tuberosity. Small amount of gas within the medial soft tissues,. The related open wound or could indicate infection by gas-forming organism Complete tear with retraction of the calcaneal tendon, as described. Fluid in the tibiotalar joint. Probably reactive secondary to the above Diffuse edema of the subcutaneous fat. This could be due to cellulitis or could be related to hemodynamic abnormalities Other findings as noted Findings discussed by phone with Dr. Prieto at the time of interpretation Microbiology Date/Time Source Procedure Growth Status 10/14/17 08:50 Blood Blood Culture - Final NO GROWTH AFTER 5 DAYS Complete 10/11/17 17:00 Nasal Nares MRSA Culture - Final NO METHICILLIN RESISTANT STAPH AUREUS... Complete 10/20/17 01:02 Urine,Clean Catch Urine Culture - Final Jessie Albicans Complete 10/13/17 19:20 Foot Left Gram Stain - Final Complete 10/13/17 19:20 Aerobic Culture - Final Klebsiella Pneumoniae Proteus Mirabilis Enterococcus Faecium - Vre Complete 10/13/17 19:20 Foot Left Anaerobic Culture - Final NO ANAEROBES ISOLATED Complete Microbiology Date/Time Source Procedure Growth Status 10/20/17 01:02 Urine,Clean Catch Urine Culture - Final Jessie Albicans Complete Laboratory Tests Test 10/22/17 06:00 White Blood Count 11.2 K/UL (4.8-10.8) H Red Blood Count 3.42 M/UL (4.70-6.10) L Hemoglobin 8.9 G/DL (14.2-18.0) L Hematocrit 26.9 % (42.0-52.0) L Mean Corpuscular Volume 79 FL (80-99) L Mean Corpuscular Hemoglobin 26.1 PG (27.0-31.0) L Mean Corpuscular Hemoglobin Concent 33.2 G/DL (32.0-36.0) Red Cell Distribution Width 15.3 % (11.6-14.8) H Platelet Count 433 K/UL (150-450) Mean Platelet Volume 5.5 FL (6.5-10.1) L Neutrophils (%) (Auto) 67.7 % (45.0-75.0) Lymphocytes (%) (Auto) 20.3 % (20.0-45.0) Monocytes (%) (Auto) 5.0 % (1.0-10.0) Eosinophils (%) (Auto) 5.8 % (0.0-3.0) H Basophils (%) (Auto) 1.2 % (0.0-2.0) Sodium Level 136 MMOL/L (136-145) Potassium Level 4.5 MMOL/L (3.5-5.1) Chloride Level 105 MMOL/L (98-107) Carbon Dioxide Level 27 MMOL/L (21-32) Anion Gap 4 mmol/L (5-15) L Blood Urea Nitrogen 21 mg/dL (7-18) H Creatinine 1.5 MG/DL (0.55-1.30) H Estimat Glomerular Filtration Rate mL/min (>60) Glucose Level 186 MG/DL (74-106) H Calcium Level 8.0 MG/DL (8.5-10.1) L Total Creatine Kinase 86 U/L (26-308) Current Medications Medications (Trade) Dose Ordered Sig/Dari Route PRN Reason Start Time Stop Time Status Last Admin Dose Admin Acetaminophen (Tylenol) 650 mg Q4H PRN ORAL Mild Pain (Scale 1-3), fever 10/11/17 16:45 11/10/17 16:44 Amlodipine Besylate (Norvasc) 2.5 mg DAILY ORAL 10/17/17 09:00 11/16/17 08:59 10/20/17 09:22 Bisacodyl (Dulcolax) 10 mg HSPRN PRN RECTAL Constipation 10/11/17 17:15 11/10/17 17:14 Chlorhexidine Gluconate (Sarah-Hex 2%) 1 applic DAILY@2000 TOPIC 10/17/17 20:00 11/16/17 19:59 10/21/17 22:08 Clotrimazole (Lotrimin) 1 applic EVERY 12 HOURS TOPIC 10/14/17 21:00 11/13/17 20:59 10/21/17 22:11 Daptomycin 670 mg/ Sodium Chloride 110 ml @ 220 mls/hr Q24H IV 10/17/17 17:00 10/24/17 16:59 10/21/17 17:12 Dextrose (Dextrose 50%) STAT PRN IV Hypoglycemia 10/11/17 16:45 11/10/17 16:44 Docusate Sodium (Colace) 100 mg TID ORAL 10/12/17 13:30 11/10/17 13:29 10/20/17 18:17 Doxazosin Mesylate (Cardura) 1 mg TID ORAL 10/16/17 13:00 11/15/17 12:59 10/20/17 18:17 Ertapenem 1 gm/ Sodium Chloride 55 ml @ 110 mls/hr Q24H IVPB 10/19/17 16:00 10/24/17 15:59 10/22/17 15:46 Finasteride (Proscar) 5 mg DAILY ORAL 10/12/17 09:00 11/11/17 08:59 10/20/17 09:22 Heparin Sodium (Porcine) (Heparin 5000 units/ml) 5,000 units EVERY 12 HOURS SUBQ 10/11/17 21:00 11/10/17 20:59 10/17/17 22:12 Hydromorphone HCl (Dilaudid) 1 mg Q4H PRN IVP Severe Pain (Pain Scale 7-10) 10/18/17 17:00 10/25/17 16:59 10/22/17 15:55 Insulin Aspart (NovoLOG) BEFORE MEALS AND HS SUBQ 10/11/17 21:00 11/10/17 20:59 10/22/17 11:56 Insulin Detemir (Levemir) 12 units Q24H SUBQ 10/16/17 18:00 11/15/17 17:59 10/21/17 18:12 Menthol/Methyl Salicylate (Bengay) 1 applic BID TOPIC 10/18/17 20:00 11/17/17 19:59 10/21/17 18:20 Mirtazapine (Remeron) 15 mg BEDTIME ORAL 10/11/17 21:00 11/10/17 20:59 10/18/17 21:15 Ondansetron HCl (Zofran) 4 mg Q6H PRN IVP Nausea & Vomiting 10/11/17 16:45 11/10/17 16:44 Polyethylene Glycol (Miralax) 17 gm HSPRN PRN ORAL Constipation 10/11/17 16:45 11/10/17 16:44 Risperidone (RisperDAL) 1 mg BEDTIME ORAL 10/14/17 21:00 11/13/17 20:59 10/18/17 21:14 Sodium Hypochlorite (Dakin's Quarter Strength) 1 applic DAILY TOPIC 10/20/17 09:00 11/19/17 08:59 10/21/17 10:08 Tamsulosin HCl (Flomax) 0.4 mg BID ORAL 10/12/17 13:30 11/10/17 13:29 10/20/17 18:17 Vitamin B Complex/ Vit C/Folic Acid (Nephrovite) 1 tab DAILY ORAL 10/12/17 09:00 11/11/17 08:59 10/21/17 10:19 Vitamin D (Vitamin D) 2,000 intlu DAILY ORAL 10/22/17 09:00 11/21/17 08:59 LARON HERNANDEZ Oct 22, 2017 16:39
[2017-10-22] MEDS: Levemir Flexpen SUBQ SCH (17:27)
[2017-10-22] MEDS: DAPTOMYCIN IV SCH (17:58)
[2017-10-22] MEDS: NS IV SCH (17:58)
[2017-10-22 20:00] VITALS: BP 157/76
[2017-10-22] MEDS: Dyna-Hex 2% Top Sol 2oz TOPIC SCH (20:38)
--- NOTE | 2017-10-22 20:48 | General Progress Note ---
Assessment/Plan Problem List: (1) Gram-negative bacteremia Assessment & Plan: Bacterioides fragilis bacteremia ICD Codes: R78.81 - Bacteremia SNOMED: 945856553519 (2) Sepsis ICD Codes: A41.9 - Sepsis, unspecified organism SNOMED: 12491723 (3) Progressive osteomyelitis of the posterior calcaneus (4) Cellulitis of left lower extremity ICD Codes: L03.116 - Cellulitis of left lower limb SNOMED: 779378750 (5) L heel diabetic ulcer with concern for osteomyelitis (6) Complete tear with retraction of the calcaneal tendon (7) MISHEL on CKD (8) CKD stage 3 (9) DM2 (diabetes mellitus, type 2) Assessment & Plan: A1C 9.9 ICD Codes: E11.9 - Type 2 diabetes mellitus without complications SNOMED: 90990520 (10) HTN (hypertension) ICD Codes: I10 - Essential (primary) hypertension SNOMED: 59388672 (11) Diabetic neuropathy ICD Codes: E11.40 - Type 2 diabetes mellitus with diabetic neuropathy, unspecified SNOMED: 95370957, 474896373, 508317816 (12) Diabetic nephropathy ICD Codes: E11.21 - Type 2 diabetes mellitus with diabetic nephropathy SNOMED: 59711275, 149364337 Qualifiers: Qualified Codes: E11.21 - Type 2 diabetes mellitus with diabetic nephropathy (13) Hyponatremia ICD Codes: E87.1 - Hypo-osmolality and hyponatremia SNOMED: 12745390 (14) Chronic diabetic ulcer right foot (15) Medical non-compliance ICD Codes: Z91.19 - Patient's noncompliance with other medical treatment and regimen SNOMED: 109929800 Status: stable Assessment/Plan Podiatry, ID, renal consulted s/p vanco (10/11-10/16) Cont meropenem (10/14-) Cont daptomycin 8mg/kg for VRE (10/17-) Will need total of 6 weeks of IV abx per ID given osteomyelitis s/p cefepime and flagyl (10/11-10/14) F/u cultures--blood culture showing GNR, wound culture showing Klebsiella and Proteus F/u repeat blood cultures--ngtd PICC line placed 10/17/17 Wound care per podiatry Check MRI L foot--shows progressive osteomyelitis, heel ulceration, soft tissue gas, complete tear of Achilles tendon s/p incision and drainage left foot, excisional debridement to the level of muscle left foot, and partial calcanectomy left foot on 10/13/17 NWB LLE Off wound vac now per podiatry IVFs given MISHEL Avoid nephrotoxins Check renal U/S--shows bladder volume 337mL, refused connolly Flomax 0.4mg BID + finasteride 5mg daily Check TTE--EF 55-60% Pain control, bowel regimen Supportive care Cont SNF meds but hold lasix, MTF for now ZENIA DC once authorization for SNF obtained DVT Prophylaxis: HSQ Code Status: Full Hospital Classification Declaration: Based on this initial evaluation, and depending on the patient's clinical course, I anticipate that this patient will require hospitalization for 0-1 day for LLE cellulitis, L heel diabetic ulcer w / concern for osteo, and close respiratory/hemodynamic monitoring. Disposition: Once the patient is stable to leave the hospital, I anticipate the patient will likely be discharged to the following environment: back to SNF Discussed with patient/family, nursing staff, SW/CM, podiatry, ID regarding clinical status, treatment course, and disposition planning. D/w ID re abx on d/ c. D/w podiatry re wound vac, d/c plan. D/w CM re dispo Time of note may not reflect time of encounter Subjective Date patient seen: Oct 22, 2017 Time patient seen: 13:00 ROS Limited/Unobtainable: No Constitutional: Reports: weakness HEENT: Reports: no symptoms Cardiovascular: Reports: no symptoms Respiratory: Reports: no symptoms Gastrointestinal/Abdominal: Reports: no symptoms Genitourinary: Reports: no symptoms Neurologic/Psychiatric: Reports: no symptoms Endocrine: Reports: no symptoms Hematologic/Lymphatic: Reports: no symptoms Allergies: Coded Allergies: GABAPENTIN (Verified Allergy, Unknown, 10/11/17) OLIVE OIL (Verified Adverse Reaction, Severe, SPASM IN THE COLON, 01/18/14) PREGABALIN (Verified Adverse Reaction, Intermediate, "hypernervous", ) ACETAMINOPHEN (Verified Adverse Reaction, Mild, IRRITABILITY AND ELEVATED BLOOD PRESSURE, 01/18/14) IBUPROFEN (Verified Adverse Reaction, Mild, IRRITABILITY AND ELEVATED BLOOD PRESSURE, 01/18/14) Uncoded Allergies: SSRI (Allergy, Unknown, 10/11/17) Subjective No acute o/n events MRI L foot shows progressive osteomyelitis, heel ulcer, soft tissue gas, complete tear of Achilles tendon s/p incision and drainage left foot, excisional debridement to the level of muscle left foot, and partial calcanectomy left foot POD#9 Blood cultures growing Bacterioides fragilis. Repeat blood cultures neg Wound culture showing proteus and klebsiella--now also showing VRE. D/w ID and pt started on daptomycin Awaiting authorization for SNF as pt's Medicare days have run out Pt is noncompliant with meds Pt c/o foot pain. Lethargic, some chills. Denies n/v, d/c, chest pain, SOB, abd pain Objective Last 24 Hour Vital Signs Date Time Temp Pulse Resp B/P (MAP) Pulse Ox O2 Delivery O2 Flow Rate FiO2 10/22/17 20:00 98.7 71 21 157/76 97 98.7 10/22/17 16:25 97.9 10/22/17 16:00 97.9 83 20 113/41 96 97.9 10/22/17 15:55 98.2 10/22/17 12:00 97.7 61 20 131/72 97 97.7 10/22/17 11:51 98.2 10/22/17 09:00 59 130/62 10/22/17 09:00 67 10/22/17 08:00 98.2 59 20 138/60 99 98.2 10/22/17 04:36 98.4 59 17 130/62 96 98.4 10/22/17 00:00 98.4 76 20 116/69 99 Room Air 98.4 Intake and Output 10/21/17 10/22/17 19:00 07:00 Intake Total 140 ml 480 ml Output Total 450 ml 300 ml Balance -310 ml 180 ml Intake Oral 140 ml 480 ml Output Urine Total 450 ml 300 ml # Voids 5 2 Laboratory Tests 10/22/17 06:00: White Blood Count 11.2H, Red Blood Count 3.42L, Hemoglobin 8.9L, Hematocrit 26.9L, Mean Corpuscular Volume 79L, Mean Corpuscular Hemoglobin 26.1L, Mean Corpuscular Hemoglobin Concent 33.2, Red Cell Distribution Width 15.3H, Platelet Count 433, Mean Platelet Volume 5.5L, Neutrophils (%) (Auto) 67.7, Lymphocytes (%) (Auto) 20.3, Monocytes (%) (Auto) 5.0, Eosinophils (%) (Auto) 5.8H, Basophils (%) (Auto) 1.2, Sodium Level 136, Potassium Level 4.5, Chloride Level 105, Carbon Dioxide Level 27, Anion Gap 4L, Blood Urea Nitrogen 21H, Creatinine 1.5H, Estimat Glomerular Filtration Rate , Glucose Level 186H, Calcium Level 8.0L, Total Creatine Kinase 86 Height (Feet): 5 Height (Inches): 8.00 Weight (Pounds): 185 Objective General: alert, cooperative, no distress, appears stated age Head: normocephalic, without obvious abnormality, atraumatic Eyes: conjunctivae/corneas clear. PERRL, EOM's intact Throat: lips, mucosa, and tongue normal. MMM Neck: supple, symmetrical, trachea midline, and no JVD Lungs: clear to auscultation bilaterally Heart: regular rate and rhythm, S1, S2 normal, no murmur, click, rub or gallop Abdomen: soft, non-tender, non-distended, bowel sounds normal Extremities: extremities normal, atraumatic, no cyanosis, 1-2+ pitting edema BLE Pulses: 2+ and symmetric Skin: Left foot dressing c/d/i, Right foot dressing c/d/i Neurologic: grossly normal, no focal deficits Conner Orozco M.D. Oct 22, 2017 20:47
--- NOTE | 2017-10-22 23:56 | General Progress Note ---
Assessment/Plan Problem List: (1) Dementia with behavioral disturbance Assessment & Plan: Dementia with behavior disturbance and agitation. lacks capacity to make decisions lacks capacity to refuse meds PLAN: 1. Continue risperidone 1 mg at bedtime. 2. Continue Remeron 15 at bedtime. 3. Continue to follow and readjust the medications. ICD Codes: F03.91 - Unspecified dementia with behavioral disturbance SNOMED: 1523887710011 Assessment/Plan Dementia with behavior disturbance and agitation. lacks capacity to make decisions lacks capacity to refuse meds PLAN: 1. Continue risperidone 1 mg at bedtime. 2. Continue Remeron 15 at bedtime. 3. Continue to follow and readjust the medications. Subjective Neurologic/Psychiatric: Reports: anxiety, depressed, emotional problems Allergies: Coded Allergies: GABAPENTIN (Verified Allergy, Unknown, 10/11/17) OLIVE OIL (Verified Adverse Reaction, Severe, SPASM IN THE COLON, 01/18/14) PREGABALIN (Verified Adverse Reaction, Intermediate, "hypernervous", ) ACETAMINOPHEN (Verified Adverse Reaction, Mild, IRRITABILITY AND ELEVATED BLOOD PRESSURE, 01/18/14) IBUPROFEN (Verified Adverse Reaction, Mild, IRRITABILITY AND ELEVATED BLOOD PRESSURE, 01/18/14) Uncoded Allergies: SSRI (Allergy, Unknown, 10/11/17) Subjective episodes of confusion. noncompliant at times. took his meds today. Objective Last 24 Hour Vital Signs Date Time Temp Pulse Resp B/P (MAP) Pulse Ox O2 Delivery O2 Flow Rate FiO2 10/22/17 20:00 98.7 71 21 157/76 97 98.7 10/22/17 16:25 97.9 10/22/17 16:00 97.9 83 20 113/41 96 97.9 10/22/17 15:55 98.2 10/22/17 12:00 97.7 61 20 131/72 97 97.7 10/22/17 11:51 98.2 10/22/17 09:00 59 130/62 10/22/17 09:00 67 10/22/17 08:00 98.2 59 20 138/60 99 98.2 10/22/17 04:36 98.4 59 17 130/62 96 98.4 10/22/17 00:00 98.4 76 20 116/69 99 Room Air 98.4 Intake and Output 10/21/17 10/22/17 19:00 07:00 Intake Total 140 ml 480 ml Output Total 450 ml 300 ml Balance -310 ml 180 ml Intake Oral 140 ml 480 ml Output Urine Total 450 ml 300 ml # Voids 5 2 Laboratory Tests 10/22/17 06:00: White Blood Count 11.2H, Red Blood Count 3.42L, Hemoglobin 8.9L, Hematocrit 26.9L, Mean Corpuscular Volume 79L, Mean Corpuscular Hemoglobin 26.1L, Mean Corpuscular Hemoglobin Concent 33.2, Red Cell Distribution Width 15.3H, Platelet Count 433, Mean Platelet Volume 5.5L, Neutrophils (%) (Auto) 67.7, Lymphocytes (%) (Auto) 20.3, Monocytes (%) (Auto) 5.0, Eosinophils (%) (Auto) 5.8H, Basophils (%) (Auto) 1.2, Sodium Level 136, Potassium Level 4.5, Chloride Level 105, Carbon Dioxide Level 27, Anion Gap 4L, Blood Urea Nitrogen 21H, Creatinine 1.5H, Estimat Glomerular Filtration Rate , Glucose Level 186H, Calcium Level 8.0L, Total Creatine Kinase 86 Height (Feet): 5 Height (Inches): 8.00 Weight (Pounds): 185 General Appearance: no apparent distress, alert Milton Lancaster M.D. Oct 22, 2017 23:55
[2017-10-23] VITALS: BP 148/82
[2017-10-23 04:00] VITALS: BP 105/56
[2017-10-23] MEDS: NovoLOG Insulin Flexpen SUBQ SCH ×4 (06:26→21:26)
--- NOTE | 2017-10-23 07:18 | Podiatric Progress Note ---
Assessment/Plan Patient Hank Nava is a 72 year old male who was admitted on Oct 11, 2017 at 15:22 with Problems: Assessment/Plan A/ 1) Cellulitis left lower extremity 2) Chronic diabetic ulcer left heel with osteomyelitis 3) DM with Diabetic Neuropathy 4) Chronic diabetic ulcer right foot 5) Charcot deformity right foot 6) Obesity 7) Difficulty walking 8) Dementia P/ 1) S/p debridement and partial calcanectomy on 10/13/2017. Hold Wound VAC. Cont wet to dry with Dakin's solution. Will continue with limb salvage. 2) Cont pain management 3) Abx per ID - VRE. Patient is improving. 4) Will follow, pending discharge once HMO auth obtained for SNF placement. 5) Psych assessment noted. Subjective Allergies: Coded Allergies: GABAPENTIN (Verified Allergy, Unknown, 10/11/17) OLIVE OIL (Verified Adverse Reaction, Severe, SPASM IN THE COLON, 01/18/14) PREGABALIN (Verified Adverse Reaction, Intermediate, "hypernervous", ) ACETAMINOPHEN (Verified Adverse Reaction, Mild, IRRITABILITY AND ELEVATED BLOOD PRESSURE, 01/18/14) IBUPROFEN (Verified Adverse Reaction, Mild, IRRITABILITY AND ELEVATED BLOOD PRESSURE, 01/18/14) Uncoded Allergies: SSRI (Allergy, Unknown, 10/11/17) Subjective Resting comfortably. Refusing dressing change. Objective Exam Last 24 Hour Vital Signs Date Time Temp Pulse Resp B/P (MAP) Pulse Ox O2 Delivery O2 Flow Rate FiO2 10/23/17 04:00 98.3 67 20 105/56 97 98.3 10/23/17 00:00 98.5 70 21 148/82 99 98.5 10/22/17 20:00 98.7 71 21 157/76 97 98.7 10/22/17 16:25 97.9 10/22/17 16:00 97.9 83 20 113/41 96 97.9 10/22/17 15:55 98.2 10/22/17 12:00 97.7 61 20 131/72 97 97.7 10/22/17 11:51 98.2 10/22/17 09:00 59 130/62 10/22/17 09:00 67 10/22/17 08:00 98.2 59 20 138/60 99 98.2 Microbiology Date/Time Source Procedure Growth Status 10/14/17 08:50 Blood Blood Culture - Final NO GROWTH AFTER 5 DAYS Complete 10/11/17 17:00 Nasal Nares MRSA Culture - Final NO METHICILLIN RESISTANT STAPH AUREUS... Complete 10/20/17 01:02 Urine,Clean Catch Urine Culture - Final Jessie Albicans Complete 10/13/17 19:20 Foot Left Gram Stain - Final Complete 10/13/17 19:20 Aerobic Culture - Final Klebsiella Pneumoniae Proteus Mirabilis Enterococcus Faecium - Vre Complete 10/13/17 19:20 Foot Left Anaerobic Culture - Final NO ANAEROBES ISOLATED Complete Dermatological Wound Assessment : Exudate Amount: Moderate Dermatological Narrative dressiings in place Raymundo Velasquez DPM Oct 23, 2017 07:18
[2017-10-23 08:00] VITALS: BP 95/44
[2017-10-23] MEDS: Docusate 100mg cap ORAL SCH ×3 (09:00→17:51)
[2017-10-23] MEDS: Tamsulosin 0.4mg cap ORAL SCH ×2 (09:00→17:51)
[2017-10-23] MEDS: Heparin 5000 units/ml inj SUBQ SCH ×2 (09:00→21:00)
[2017-10-23] MEDS: Doxazosin 1mg Tab ORAL SCH ×3 (09:00→17:50)
[2017-10-23] MEDS: Analgesic Balm 15gm TOPIC SCH ×2 (09:26→17:51)
[2017-10-23] MEDS: Vitamin D 1000 IU Tab ORAL SCH (09:26)
[2017-10-23] MEDS: Nephrovite tab (Rena-Vite) ORAL SCH (09:26)
[2017-10-23] MEDS: Dakin's 0.125% Soln (Quarter Strength) 16oz TOPIC SCH (09:27)
[2017-10-23] MEDS: Fluconazole 100mg tab ORAL SCH (09:29)
--- NOTE | 2017-10-23 11:16 | General Progress Note ---
Assessment/Plan Assessment/Plan #. Leukocytosis, status post debridement, gram-negative jasmyn infection noted. --> Wbc count improving past few days. --> Remains on meropenem. Monitor closely. --> Infectious Disease Service following. #. Anemia due to underlying chronic disease. --> Continue to closely monitor. Hemoglobin goal is above 7 --> anemia workup reviewed. Iron 9, TIBC 127, B12 1791, Folate 41 --> Hemoglobin has been above goal, no prbc needed. #. Anemia of iron deficiency, potentially secondary to osteomyelitis. --> Monitor closely. Trend cbc. #. Anemia due to underlying kidney disease. --> Closely monitor, again improving. #. Thrombocytosis, likely reactive process from underlying anemia, closely monitor for improvement. #. Elevated creatinine, chronic kidney disease. #. Diabetes mellitus, on insulin sliding scale as needed as per primary team. #. Diastolic dysfunction. Subjective Date patient seen: Oct 22, 2017 Constitutional: Denies: no symptoms, chills, diaphoresis, fever, malaise, weakness, other HEENT: Denies: no symptoms, eye pain, blurred vision, tearing, double vision, ear pain, ear discharge, nose pain, nose congestion, throat pain, throat swelling, mouth pain, mouth swelling, other Cardiovascular: Denies: no symptoms, chest pain, edema, irregular heart rate, lightheadedness, palpitations, syncope, other Respiratory: Denies: no symptoms, cough, orthopnea, shortness of breath, SOB with excertion, SOB at rest, sputum, stridor, wheezing, other Gastrointestinal/Abdominal: Denies: no symptoms, abdomen distended, abdominal pain, black stools, tarry stools, blood in stool, constipated, diarrhea, difficulty swallowing, nausea, poor appetite, poor fluid intake, rectal bleeding , vomiting, other Genitourinary: Denies: no symptoms, burning, discharge, frequency, flank pain, hematuria, incontinence, pain, urgency, other Neurologic/Psychiatric: Denies: no symptoms, anxiety, depressed, emotional problems, headache, numbness, paresthesia, pre-existing deficit, seizure, tingling, tremors, weakness, other Allergies: Coded Allergies: GABAPENTIN (Verified Allergy, Unknown, 10/11/17) OLIVE OIL (Verified Adverse Reaction, Severe, SPASM IN THE COLON, 6/6/14) PREGABALIN (Verified Adverse Reaction, Intermediate, "hypernervous", ) ACETAMINOPHEN (Verified Adverse Reaction, Mild, IRRITABILITY AND ELEVATED BLOOD PRESSURE, 01/18/14) IBUPROFEN (Verified Adverse Reaction, Mild, IRRITABILITY AND ELEVATED BLOOD PRESSURE, 01/18/14) Uncoded Allergies: SSRI (Allergy, Unknown, 10/11/17) Subjective Lethargic and confused. Leukocytosis downtrending and improving. Objective Last 24 Hour Vital Signs Date Time Temp Pulse Resp B/P (MAP) Pulse Ox O2 Delivery O2 Flow Rate FiO2 10/23/17 09:00 60 95/55 10/23/17 08:00 98.4 71 20 95/44 94 98.4 10/23/17 04:00 98.3 67 20 105/56 97 98.3 10/23/17 00:00 98.5 70 21 148/82 99 98.5 10/22/17 20:00 98.7 71 21 157/76 97 98.7 10/22/17 16:25 97.9 10/22/17 16:00 97.9 83 20 113/41 96 97.9 10/22/17 15:55 98.2 10/22/17 12:00 97.7 61 20 131/72 97 97.7 10/22/17 11:51 98.2 Intake and Output 10/22/17 10/23/17 20:00 08:00 Intake Total 645 ml Output Total 450 ml 950 ml Balance 195 ml -950 ml Intake Oral 480 ml IV Total 165 ml Output Urine Total 450 ml 950 ml # Bowel Movements 1 Labs Test 10/22/17 06:00 White Blood Count 11.2 K/UL (4.8-10.8) Red Blood Count 3.42 M/UL (4.70-6.10) Hemoglobin 8.9 G/DL (14.2-18.0) Hematocrit 26.9 % (42.0-52.0) Mean Corpuscular Volume 79 FL (80-99) Mean Corpuscular Hemoglobin 26.1 PG (27.0-31.0) Mean Corpuscular Hemoglobin Concent 33.2 G/DL (32.0-36.0) Red Cell Distribution Width 15.3 % (11.6-14.8) Platelet Count 433 K/UL (150-450) Mean Platelet Volume 5.5 FL (6.5-10.1) Neutrophils (%) (Auto) 67.7 % (45.0-75.0) Lymphocytes (%) (Auto) 20.3 % (20.0-45.0) Monocytes (%) (Auto) 5.0 % (1.0-10.0) Eosinophils (%) (Auto) 5.8 % (0.0-3.0) Basophils (%) (Auto) 1.2 % (0.0-2.0) Sodium Level 136 MMOL/L (136-145) Potassium Level 4.5 MMOL/L (3.5-5.1) Chloride Level 105 MMOL/L (98-107) Carbon Dioxide Level 27 MMOL/L (21-32) Anion Gap 4 mmol/L (5-15) Blood Urea Nitrogen 21 mg/dL (7-18) Creatinine 1.5 MG/DL (0.55-1.30) Estimat Glomerular Filtration Rate mL/min (>60) Glucose Level 186 MG/DL (74-106) Calcium Level 8.0 MG/DL (8.5-10.1) Total Creatine Kinase 86 U/L (26-308) Height (Feet): 5 Height (Inches): 8.00 Weight (Pounds): 185 General Appearance: no apparent distress Respiratory/Chest: decreased breath sounds Abdomen: non tender Giovany Wiggins Oct 23, 2017 11:16
[2017-10-23 12:00] VITALS: BP 158/73
--- NOTE | 2017-10-23 12:40 | General Progress Note ---
Assessment/Plan Problem List: (1) Gram-negative bacteremia Assessment & Plan: Bacterioides fragilis bacteremia ICD Codes: R78.81 - Bacteremia SNOMED: 481325469124 (2) Sepsis ICD Codes: A41.9 - Sepsis, unspecified organism SNOMED: 20195726 (3) Progressive osteomyelitis of the posterior calcaneus (4) Cellulitis of left lower extremity ICD Codes: L03.116 - Cellulitis of left lower limb SNOMED: 108296110 (5) L heel diabetic ulcer with concern for osteomyelitis (6) Complete tear with retraction of the calcaneal tendon (7) MISHEL on CKD (8) CKD stage 3 (9) DM2 (diabetes mellitus, type 2) Assessment & Plan: A1C 9.9 ICD Codes: E11.9 - Type 2 diabetes mellitus without complications SNOMED: 73420884 (10) HTN (hypertension) ICD Codes: I10 - Essential (primary) hypertension SNOMED: 02478258 (11) Diabetic neuropathy ICD Codes: E11.40 - Type 2 diabetes mellitus with diabetic neuropathy, unspecified SNOMED: 61610757, 697627541, 409326666 (12) Diabetic nephropathy ICD Codes: E11.21 - Type 2 diabetes mellitus with diabetic nephropathy SNOMED: 53594926, 983835403 Qualifiers: Qualified Codes: E11.21 - Type 2 diabetes mellitus with diabetic nephropathy (13) Hyponatremia ICD Codes: E87.1 - Hypo-osmolality and hyponatremia SNOMED: 84381476 (14) Chronic diabetic ulcer right foot (15) Medical non-compliance ICD Codes: Z91.19 - Patient's noncompliance with other medical treatment and regimen SNOMED: 462434408 Status: stable Assessment/Plan Podiatry, ID, renal consulted s/p vanco (10/11-10/16) Cont meropenem (10/14-) Cont daptomycin 8mg/kg for VRE (10/17-) Will need total of 6 weeks of IV abx per ID given osteomyelitis s/p cefepime and flagyl (10/11-10/14) F/u cultures--blood culture showing GNR, wound culture showing Klebsiella and Proteus F/u repeat blood cultures--ngtd PICC line placed 10/17/17 Wound care per podiatry Check MRI L foot--shows progressive osteomyelitis, heel ulceration, soft tissue gas, complete tear of Achilles tendon s/p incision and drainage left foot, excisional debridement to the level of muscle left foot, and partial calcanectomy left foot on 10/13/17 NWB LLE Off wound vac now per podiatry IVFs given MISHEL Avoid nephrotoxins Check renal U/S--shows bladder volume 337mL, refused connolly Flomax 0.4mg BID + finasteride 5mg daily Check TTE--EF 55-60% Pain control, bowel regimen Supportive care Cont SNF meds but hold lasix, MTF for now ZENIA DC once authorization for SNF obtained DVT Prophylaxis: HSQ Code Status: Full Hospital Classification Declaration: Based on this initial evaluation, and depending on the patient's clinical course, I anticipate that this patient will require hospitalization for 0-1 day for LLE cellulitis, L heel diabetic ulcer w / concern for osteo, and close respiratory/hemodynamic monitoring. Disposition: Once the patient is stable to leave the hospital, I anticipate the patient will likely be discharged to the following environment: back to SNF Discussed with patient/family, nursing staff, SW/CM, podiatry, ID regarding clinical status, treatment course, and disposition planning. D/w ID re abx on d/ c. D/w podiatry re wound vac, d/c plan. D/w CM re dispo Time of note may not reflect time of encounter Subjective Date patient seen: Oct 23, 2017 Time patient seen: 12:40 ROS Limited/Unobtainable: No Constitutional: Reports: weakness HEENT: Reports: no symptoms Cardiovascular: Reports: no symptoms Respiratory: Reports: no symptoms Gastrointestinal/Abdominal: Reports: no symptoms Genitourinary: Reports: no symptoms Neurologic/Psychiatric: Reports: no symptoms Endocrine: Reports: no symptoms Hematologic/Lymphatic: Reports: no symptoms Allergies: Coded Allergies: GABAPENTIN (Verified Allergy, Unknown, 10/11/17) OLIVE OIL (Verified Adverse Reaction, Severe, SPASM IN THE COLON, 01/18/14) PREGABALIN (Verified Adverse Reaction, Intermediate, "hypernervous", ) ACETAMINOPHEN (Verified Adverse Reaction, Mild, IRRITABILITY AND ELEVATED BLOOD PRESSURE, 01/18/14) IBUPROFEN (Verified Adverse Reaction, Mild, IRRITABILITY AND ELEVATED BLOOD PRESSURE, 01/18/14) Uncoded Allergies: SSRI (Allergy, Unknown, 10/11/17) Subjective No acute o/n events MRI L foot shows progressive osteomyelitis, heel ulcer, soft tissue gas, complete tear of Achilles tendon s/p incision and drainage left foot, excisional debridement to the level of muscle left foot, and partial calcanectomy left foot POD#10 Blood cultures growing Bacterioides fragilis. Repeat blood cultures neg Wound culture showing proteus and klebsiella--now also showing VRE. D/w ID and pt started on daptomycin Awaiting authorization for SNF as pt's Medicare days have run out Pt is noncompliant with meds Pt c/o foot pain. Lethargic, some chills. Denies n/v, d/c, chest pain, SOB, abd pain Objective Last 24 Hour Vital Signs Date Time Temp Pulse Resp B/P (MAP) Pulse Ox O2 Delivery O2 Flow Rate FiO2 10/23/17 09:00 60 95/55 10/23/17 08:00 98.4 71 20 95/44 94 98.4 10/23/17 04:00 98.3 67 20 105/56 97 98.3 10/23/17 00:00 98.5 70 21 148/82 99 98.5 10/22/17 20:00 98.7 71 21 157/76 97 98.7 10/22/17 16:25 97.9 10/22/17 16:00 97.9 83 20 113/41 96 97.9 10/22/17 15:55 98.2 Intake and Output 10/22/17 10/23/17 19:00 07:00 Intake Total 645 ml Output Total 450 ml 950 ml Balance 195 ml -950 ml Intake Oral 480 ml IV Total 165 ml Output Urine Total 450 ml 950 ml # Bowel Movements 1 Height (Feet): 5 Height (Inches): 8.00 Weight (Pounds): 185 Objective General: alert, cooperative, no distress, appears stated age Head: normocephalic, without obvious abnormality, atraumatic Eyes: conjunctivae/corneas clear. PERRL, EOM's intact Throat: lips, mucosa, and tongue normal. MMM Neck: supple, symmetrical, trachea midline, and no JVD Lungs: clear to auscultation bilaterally Heart: regular rate and rhythm, S1, S2 normal, no murmur, click, rub or gallop Abdomen: soft, non-tender, non-distended, bowel sounds normal Extremities: extremities normal, atraumatic, no cyanosis, 1-2+ pitting edema BLE Pulses: 2+ and symmetric Skin: Left foot dressing c/d/i, Right foot dressing c/d/i Neurologic: grossly normal, no focal deficits Conner Orozco M.D. Oct 23, 2017 12:40
[2017-10-23] MEDS: Ertapenem 1 GM in NS 55 ML IVPB SCH (15:01)
--- NOTE | 2017-10-23 15:42 | Nephrology Progress Note ---
Assessment/Plan Problem List: (1) HTN (hypertension) (2) Diabetes mellitus (3) Ulcer of left heel (4) Renal insufficiency Assessment Foot ulcer, left left leg cellulitis, left heel ulcer, ? osteo, leukocytosis, lgt Renal insufficiency acute vs chronic Cr lowering now 1.5 Urinary retention: REFUSES NG Anemia UTI Plan Avoid Nephrotoxics Keep BP in check monitor renal parameters Anemia henry urine studies flomax start cardura Kidney FAMILIA Unremarkable kidneys. Negative for hydronephrosis Note inability of the patient to void with a bladder volume of 337 mL 2D echo :Left ventricular ejection fraction estimated to be 55-60%. No evidence of left ventricular hypertrophy. Subjective ROS Limited/Unobtainable: No Constitutional: Reports: malaise Objective Objective Last 24 Hour Vital Signs Date Time Temp Pulse Resp B/P (MAP) Pulse Ox O2 Delivery O2 Flow Rate FiO2 10/23/17 12:00 97.4 63 20 158/73 100 Room Air 97.4 10/23/17 09:00 60 95/55 10/23/17 08:00 98.4 71 20 95/44 94 98.4 10/23/17 04:00 98.3 67 20 105/56 97 98.3 10/23/17 00:00 98.5 70 21 148/82 99 98.5 10/22/17 20:00 98.7 71 21 157/76 97 98.7 10/22/17 16:25 97.9 10/22/17 16:00 97.9 83 20 113/41 96 97.9 10/22/17 15:55 98.2 Intake and Output 10/22/17 10/23/17 19:00 07:00 Intake Total 645 ml Output Total 450 ml 950 ml Balance 195 ml -950 ml Intake Oral 480 ml IV Total 165 ml Output Urine Total 450 ml 950 ml # Bowel Movements 1 Height (Feet): 5 Height (Inches): 8.00 Weight (Pounds): 185 General Appearance: no apparent distress Cardiovascular: normal rate Respiratory/Chest: decreased breath sounds Abdomen: soft Objective no other changes IHSAN REGALADO Oct 23, 2017 15:42
[2017-10-23 16:00] VITALS: BP 171/71
[2017-10-23] MEDS: DAPTOMYCIN IV SCH (17:50)
[2017-10-23] MEDS: NS IV SCH (17:50)
[2017-10-23] MEDS: Levemir Flexpen SUBQ SCH (17:52)
[2017-10-23 20:00] VITALS: BP 179/85
[2017-10-23] MEDS: Dyna-Hex 2% Top Sol 2oz TOPIC SCH (20:22)
[2017-10-24] VITALS: BP 165/66
[2017-10-24 04:00] VITALS: BP 150/61
[2017-10-24] MEDS: NovoLOG Insulin Flexpen SUBQ SCH ×4 (06:17→21:53)
[2017-10-24 07:33] LABS: BASOPHILS % (AUTO) 1.4 % (0.0-2.0); EOSINOPHILS % (AUTO) 6.3 % (0.0-3.0); HEMATOCRIT 29.5 % (42.0-52.0); HEMOGLOBIN 9.4 G/DL (14.2-18.0); MEAN CORPUSCULAR VOLUME 80 FL (80-99); MONOCYTES % (AUTO) 3.9 % (1.0-10.0); NEUTROPHILS % (AUTO) 66.3 % (45.0-75.0); PLATELET COUNT 460 K/UL (150-450); RED BLOOD COUNT 3.68 M/UL (4.70-6.10); RED CELL DISTRIBUTION WIDTH 15.6 % (11.6-14.8)
[2017-10-24 08:00] VITALS: BP 176/77
[2017-10-24 08:06] LABS: ALANINE AMINOTRANSFERASE 30 U/L (12-78); ALBUMIN 2.2 G/DL (3.4-5.0); ALBUMIN/GLOBULIN RATIO 0.5 (1.0-2.7); ALKALINE PHOSPHATASE 84 U/L (46-116); ANION GAP 8 mmol/L (5-15); ASPARTATE AMINO TRANSFERASE 36 U/L (15-37); BILIRUBIN,TOTAL 0.3 MG/DL (0.2-1.0); BLOOD UREA NITROGEN 19 mg/dL (7-18); CARBON DIOXIDE 25 MMOL/L (21-32); CHLORIDE 105 MMOL/L (98-107); CREATININE 1.5 MG/DL (0.55-1.30); PHOSPHORUS 2.8 MG/DL (2.5-4.9); POTASSIUM 3.7 MMOL/L (3.5-5.1); SODIUM 138 MMOL/L (136-145)
[2017-10-24] MEDS: Dakin's 0.125% Soln (Quarter Strength) 16oz TOPIC SCH (09:00)
[2017-10-24] MEDS: Vitamin D 1000 IU Tab ORAL SCH (09:00)
[2017-10-24] MEDS: Tamsulosin 0.4mg cap ORAL SCH ×2 (09:00→17:08)
[2017-10-24] MEDS: Docusate 100mg cap ORAL SCH ×3 (09:00→17:08)
[2017-10-24] MEDS: Nephrovite tab (Rena-Vite) ORAL SCH (09:00)
[2017-10-24] MEDS: Heparin 5000 units/ml inj SUBQ SCH ×2 (09:00→22:35)
[2017-10-24] MEDS: Analgesic Balm 15gm TOPIC SCH ×2 (09:00→17:12)
[2017-10-24] MEDS: Doxazosin 1mg Tab ORAL SCH ×3 (09:00→17:09)
[2017-10-24] MEDS: Fluconazole 100mg tab ORAL SCH (09:13)
--- NOTE | 2017-10-24 10:04 | General Progress Note ---
Assessment/Plan Assessment/Plan #. Leukocytosis, status post debridement, gram-negative jasmyn infection noted. --> Wbc count has been downtrending and improving --> Remains on meropenem. Monitor closely. --> Infectious Disease Service following. #. Anemia due to underlying chronic disease. --> Continue to closely monitor. Hemoglobin goal is above 7 --> anemia workup reviewed. Iron 9, TIBC 127, B12 1791, Folate 41 --> Hemoglobin has been above goal, no prbc needed. Hemoglobin improved from yesterday. #. Anemia of iron deficiency, potentially secondary to osteomyelitis. --> Monitor closely. Trend cbc. #. Anemia due to underlying kidney disease. --> Closely monitor, again improving. #. Thrombocytosis, likely reactive process from underlying anemia, closely monitor for improvement. #. Elevated creatinine, chronic kidney disease. #. Diabetes mellitus, on insulin sliding scale as needed as per primary team. #. Diastolic dysfunction. Subjective Date patient seen: Oct 23, 2017 Constitutional: Denies: no symptoms, chills, diaphoresis, fever, malaise, weakness, other HEENT: Denies: no symptoms, eye pain, blurred vision, tearing, double vision, ear pain, ear discharge, nose pain, nose congestion, throat pain, throat swelling, mouth pain, mouth swelling, other Cardiovascular: Denies: no symptoms, chest pain, edema, irregular heart rate, lightheadedness, palpitations, syncope, other Respiratory: Denies: no symptoms, cough, orthopnea, shortness of breath, SOB with excertion, SOB at rest, sputum, stridor, wheezing, other Gastrointestinal/Abdominal: Denies: no symptoms, abdomen distended, abdominal pain, black stools, tarry stools, blood in stool, constipated, diarrhea, difficulty swallowing, nausea, poor appetite, poor fluid intake, rectal bleeding , vomiting, other Genitourinary: Denies: no symptoms, burning, discharge, frequency, flank pain, hematuria, incontinence, pain, urgency, other Hematologic/Lymphatic: Reports: anemia Allergies: Coded Allergies: GABAPENTIN (Verified Allergy, Unknown, 10/11/17) OLIVE OIL (Verified Adverse Reaction, Severe, SPASM IN THE COLON, 01/18/14) PREGABALIN (Verified Adverse Reaction, Intermediate, "hypernervous", ) ACETAMINOPHEN (Verified Adverse Reaction, Mild, IRRITABILITY AND ELEVATED BLOOD PRESSURE, 01/18/14) IBUPROFEN (Verified Adverse Reaction, Mild, IRRITABILITY AND ELEVATED BLOOD PRESSURE, 01/18/14) Uncoded Allergies: SSRI (Allergy, Unknown, 10/11/17) Subjective Lethargic and confused. Noncompliant with some treatments. Objective Last 24 Hour Vital Signs Date Time Temp Pulse Resp B/P (MAP) Pulse Ox O2 Delivery O2 Flow Rate FiO2 10/24/17 04:00 98.5 67 20 150/61 98 98.5 10/24/17 00:00 98.2 68 20 165/66 100 98.2 10/23/17 20:00 98.4 76 20 179/85 100 98.4 10/23/17 16:00 98.3 70 19 171/71 98 Room Air 98.3 10/23/17 12:00 97.4 63 20 158/73 100 Room Air 97.4 Intake and Output 10/23/17 10/24/17 19:00 07:00 Intake Total 600 ml Output Total 200 ml Balance 600 ml -200 ml Intake Oral 600 ml Output Urine Total 200 ml # Voids 4 # Bowel Movements 1 1 Laboratory Tests 10/24/17 06:20: White Blood Count 10.0, Red Blood Count 3.68L, Hemoglobin 9.4L, Hematocrit 29.5L , Mean Corpuscular Volume 80, Mean Corpuscular Hemoglobin 25.5L, Mean Corpuscular Hemoglobin Concent 31.9L, Red Cell Distribution Width 15.6H, Platelet Count 460H, Mean Platelet Volume 5.1L, Neutrophils (%) (Auto) 66.3, Lymphocytes (%) (Auto) 22.0, Monocytes (%) (Auto) 3.9, Eosinophils (%) (Auto) 6.3H, Basophils (%) (Auto) 1.4, Sodium Level 138, Potassium Level 3.7, Chloride Level 105, Carbon Dioxide Level 25, Anion Gap 8, Blood Urea Nitrogen 19H, Creatinine 1.5H, Estimat Glomerular Filtration Rate , Glucose Level 188H, Uric Acid 6.1, Calcium Level 8.0L, Phosphorus Level 2.8, Magnesium Level 1.8, Total Bilirubin 0.3, Aspartate Amino Transf (AST/SGOT) 36, Alanine Aminotransferase ( ALT/SGPT) 30, Alkaline Phosphatase 84, C-Reactive Protein, Quantitative 5.9H, Pro-B-Type Natriuretic Peptide 3176H, Total Protein 6.7, Albumin 2.2L, Globulin 4.5, Albumin/Globulin Ratio 0.5L Height (Feet): 5 Height (Inches): 8.00 Weight (Pounds): 185 General Appearance: lethargic, confused Respiratory/Chest: decreased breath sounds Abdomen: non tender Giovany Wiggins Oct 24, 2017 10:04
--- NOTE | 2017-10-24 10:26 | Wound Care Consultation ---
Wound Assessment Wound Assessment : Wound Number: 1 Wound Present on Admission: Yes New Wound: No Status Change of Wound: No Wound Location Body Site Modif: right, lower Wound Location Body Site: leg Wound Type: other - open wound etiology unknown Waleska Test: Does not Waleska Vascular Issues: diabetic foot ulcers Wound Thickness: Full Thickness Wound Length: 4.0 Wound Width: 4.0 Wound Depth: 0.2 Percent of Wound Tillar/Red: 100 Wound Drainage Description: Serosanguineous Wound Drainage Amount: Moderate Wound Drainage Odor: None/Absent Tissue Surrounding Wound: Erythemic - surrounding tissue Wound General Appearance: Reddened, Draining Wound Comment #1 right lower leg full thickness open wound-etiology unknown. Per patient has has wound for years, its on and off , heals and reopens , per patient states its a bone spur.however wound is on lower lateral leg. noted patient prefers to stay in one position on right side, reminded importance of repositioning, noted patient refuses. Recommendation. -Local wound care per protocol as ordered. -Keep clean and dry. -Offload affected area. -Optimize nutrition. -turn and reposition. -Assess and notify MD for any further changes of condition to skin noted. JAILYN TUCKER Oct 24, 2017 10:25
[2017-10-24 12:00] VITALS: BP 157/67
--- NOTE | 2017-10-24 12:00 | Wound Nurse Progress Note ---
Wound RN Progress Note Wound Consult called and spoke to regarding right lower leg wound, with protocol orders and he will follow up. JAILYN TUCKER Oct 24, 2017 12:00
[2017-10-24 16:00] VITALS: BP 155/71
[2017-10-24] MEDS: DAPTOMYCIN IV SCH (17:00)
[2017-10-24] MEDS: NS IV SCH (17:00)
[2017-10-24] MEDS: Ertapenem 1 GM in NS 55 ML IVPB SCH (17:08)
--- NOTE | 2017-10-24 17:09 | Nephrology Progress Note ---
Assessment/Plan Problem List: (1) HTN (hypertension) (2) Diabetes mellitus (3) Ulcer of left heel (4) Renal insufficiency Assessment Foot ulcer, left left leg cellulitis, left heel ulcer, ? osteo, leukocytosis, lgt Renal insufficiency acute vs chronic Cr lowering now 1.5 Urinary retention: REFUSES NG Anemia UTI Plan Avoid Nephrotoxics Keep BP in check monitor renal parameters Anemia henry urine studies flomax start cardura Kidney [facility]IL[facility] Unremarkable kidneys. Negative for hydronephrosis Note inability of the patient to void with a bladder volume of 337 mL 2D echo :Left ventricular ejection fraction estimated to be 55-60%. No evidence of left ventricular hypertrophy. Subjective ROS Limited/Unobtainable: No Constitutional: Reports: malaise Objective Objective Last 24 Hour Vital Signs Date Time Temp Pulse Resp B/P (MAP) Pulse Ox O2 Delivery O2 Flow Rate FiO2 10/24/17 16:00 97.7 59 18 155/71 98 Room Air 97.7 10/24/17 12:00 98.1 64 18 157/67 98 Room Air 98.1 10/24/17 09:00 73 176/77 10/24/17 08:00 98.2 20 176/77 97 98.2 10/24/17 04:00 98.5 67 20 150/61 98 98.5 10/24/17 00:00 98.2 68 20 165/66 100 98.2 10/23/17 20:00 98.4 76 20 179/85 100 98.4 Intake and Output 10/23/17 10/24/17 19:00 07:00 Intake Total 600 ml Output Total 200 ml Balance 600 ml -200 ml Intake Oral 600 ml Output Urine Total 200 ml # Voids 4 # Bowel Movements 1 1 Laboratory Tests 10/24/17 06:20: White Blood Count 10.0, Red Blood Count 3.68L, Hemoglobin 9.4L, Hematocrit 29.5L , Mean Corpuscular Volume 80, Mean Corpuscular Hemoglobin 25.5L, Mean Corpuscular Hemoglobin Concent 31.9L, Red Cell Distribution Width 15.6H, Platelet Count 460H, Mean Platelet Volume 5.1L, Neutrophils (%) (Auto) 66.3, Lymphocytes (%) (Auto) 22.0, Monocytes (%) (Auto) 3.9, Eosinophils (%) (Auto) 6.3H, Basophils (%) (Auto) 1.4, Sodium Level 138, Potassium Level 3.7, Chloride Level 105, Carbon Dioxide Level 25, Anion Gap 8, Blood Urea Nitrogen 19H, Creatinine 1.5H, Estimat Glomerular Filtration Rate , Glucose Level 188H, Uric Acid 6.1, Calcium Level 8.0L, Phosphorus Level 2.8, Magnesium Level 1.8, Total Bilirubin 0.3, Aspartate Amino Transf (AST/SGOT) 36, Alanine Aminotransferase ( ALT/SGPT) 30, Alkaline Phosphatase 84, C-Reactive Protein, Quantitative 5.9H, Pro-B-Type Natriuretic Peptide 3176H, Total Protein 6.7, Albumin 2.2L, Globulin 4.5, Albumin/Globulin Ratio 0.5L Height (Feet): 5 Height (Inches): 8.00 Weight (Pounds): 185 General Appearance: no apparent distress Respiratory/Chest: decreased breath sounds Abdomen: soft Objective no other changes IHSAN REGALADO Oct 24, 2017 17:09
[2017-10-24] MEDS: Levemir Flexpen SUBQ SCH (17:12)
--- NOTE | 2017-10-24 17:37 | Infectious Diseases Prog Note ---
Assessment/Plan Assessment/Plan ASSESSMENT AND PLAN: 1. bacteroides bacteremia, proteus/klebsiella/vre left heel/foot wound infection and osteomyelitis on MRI, sepsis, leukocytosis, urine culture with yeast - 10-20,000 - s/p debridement, debridement as needed per podiatry - some left leg redness persists but better with less warmth - leukocytosis resolved, continue to monitor wbc - continue wound care per podiatry - f/u labs, surveillance blood cultures negative - invanz/daptomycin iv for 6 weeks course of abx, meropenem started on 10/14 - vre colonized - urine culture with persistent yeast and sig + ua - diflucan for 5 days started today - day # 10/19 - d/w Dr. Prieto 2. Elevated creatinine, chronic renal failure, acute kidney injury. 3. Anemia. 4. The patient with history of diabetes. 5. Hypertension. 6. Blood sugar and blood pressure treatment per primary. 7. Benign prostatic hypertrophy. 8. Atherosclerotic cardiovascular disease. 9. Chronic diastolic congestive heart failure. 10. Anemia. 11. Dizziness, headaches, weakness, and fatigue. 12. Allergies, acetaminophen, gabapentin, ibuprofen, Elavil, pregabalin, and selective serotonin reuptake inhibitors. 13. Social history negative. 14. Family history noncontributory. 15. MAR was noted. 16. Case discussed with RN. 17. Continue treatment per primary consultants. 18. Orders were entered. 19. Notes and records noted. Subjective Constitutional: Reports: fatigue, Denies: fever HEENT: Denies: congestion Respiratory: Denies: shortness of breath Cardiovascular: Denies: chest pain Gastrointestinal/Abdominal: Denies: nausea, vomiting, diarrhea Genitourinary: Denies: dysuria, hematuria, frequency Neurologic: Denies: headache, numbness Psychiatric: Reports: depression Skin: Denies: rash Hematologic: Denies: bleeding Musculoskeletal: Reports: pain - pain controlled Allergies: Coded Allergies: GABAPENTIN (Verified Allergy, Unknown, 10/11/17) OLIVE OIL (Verified Adverse Reaction, Severe, SPASM IN THE COLON, 01/18/14) PREGABALIN (Verified Adverse Reaction, Intermediate, "hypernervous", ) ACETAMINOPHEN (Verified Adverse Reaction, Mild, IRRITABILITY AND ELEVATED BLOOD PRESSURE, 01/18/14) IBUPROFEN (Verified Adverse Reaction, Mild, IRRITABILITY AND ELEVATED BLOOD PRESSURE, 01/18/14) Uncoded Allergies: SSRI (Allergy, Unknown, 10/11/17) Objective Vital Signs Last 24 Hour Vital Signs Date Time Temp Pulse Resp B/P (MAP) Pulse Ox O2 Delivery O2 Flow Rate FiO2 10/24/17 16:00 97.7 59 18 155/71 98 Room Air 97.7 10/24/17 12:00 98.1 64 18 157/67 98 Room Air 98.1 10/24/17 09:00 73 176/77 10/24/17 08:00 98.2 20 176/77 97 98.2 10/24/17 04:00 98.5 67 20 150/61 98 98.5 10/24/17 00:00 98.2 68 20 165/66 100 98.2 10/23/17 20:00 98.4 76 20 179/85 100 98.4 Height (Feet): 5 Height (Inches): 8.00 Weight (Pounds): 185 General Appearance: no acute distress HEENT: normocephalic, atraumatic, anicteric, mucous membranes moist Respiratory/Chest: lungs clear, normal breath sounds, no respiratory distress, no accessory muscle use Cardiovascular: regular rhythm, no gallop/murmur, no JVD Abdomen: normal bowel sounds, soft, non tender, no organomegaly, non distended Genitourinary: other - no connolly, no cva pain Extremities: no cyanosis, other - left leg more pinkish, less redness and less warmth, wound covered Skin: no rash 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 No acute process otherwise. MRI left foot and ankle - Impression: Positive for progressive osteomyelitis of the posterior calcaneus, since prior study of 08/02/2017 Increasing ulceration of the overlying soft tissues, with possible exposure of the medial aspect of the calcaneal tuberosity. Small amount of gas within the medial soft tissues,. The related open wound or could indicate infection by gas-forming organism Complete tear with retraction of the calcaneal tendon, as described. Fluid in the tibiotalar joint. Probably reactive secondary to the above Diffuse edema of the subcutaneous fat. This could be due to cellulitis or could be related to hemodynamic abnormalities Other findings as noted Findings discussed by phone with Dr. Prieto at the time of interpretation Microbiology Date/Time Source Procedure Growth Status 10/14/17 08:50 Blood Blood Culture - Final NO GROWTH AFTER 5 DAYS Complete 10/11/17 17:00 Nasal Nares MRSA Culture - Final NO METHICILLIN RESISTANT STAPH AUREUS... Complete 10/20/17 01:02 Urine,Clean Catch Urine Culture - Final Jessie Albicans Complete 10/13/17 19:20 Foot Left Gram Stain - Final Complete 10/13/17 19:20 Aerobic Culture - Final Klebsiella Pneumoniae Proteus Mirabilis Enterococcus Faecium - Vre Complete 10/13/17 19:20 Foot Left Anaerobic Culture - Final NO ANAEROBES ISOLATED Complete Laboratory Tests Test 10/24/17 06:20 White Blood Count 10.0 K/UL (4.8-10.8) Red Blood Count 3.68 M/UL (4.70-6.10) L Hemoglobin 9.4 G/DL (14.2-18.0) L Hematocrit 29.5 % (42.0-52.0) L Mean Corpuscular Volume 80 FL (80-99) Mean Corpuscular Hemoglobin 25.5 PG (27.0-31.0) L Mean Corpuscular Hemoglobin Concent 31.9 G/DL (32.0-36.0) L Red Cell Distribution Width 15.6 % (11.6-14.8) H Platelet Count 460 K/UL (150-450) H Mean Platelet Volume 5.1 FL (6.5-10.1) L Neutrophils (%) (Auto) 66.3 % (45.0-75.0) Lymphocytes (%) (Auto) 22.0 % (20.0-45.0) Monocytes (%) (Auto) 3.9 % (1.0-10.0) Eosinophils (%) (Auto) 6.3 % (0.0-3.0) H Basophils (%) (Auto) 1.4 % (0.0-2.0) Sodium Level 138 MMOL/L (136-145) Potassium Level 3.7 MMOL/L (3.5-5.1) Chloride Level 105 MMOL/L (98-107) Carbon Dioxide Level 25 MMOL/L (21-32) Anion Gap 8 mmol/L (5-15) Blood Urea Nitrogen 19 mg/dL (7-18) H Creatinine 1.5 MG/DL (0.55-1.30) H Estimat Glomerular Filtration Rate mL/min (>60) Glucose Level 188 MG/DL (74-106) H Uric Acid 6.1 MG/DL (2.6-7.2) Calcium Level 8.0 MG/DL (8.5-10.1) L Phosphorus Level 2.8 MG/DL (2.5-4.9) Magnesium Level 1.8 MG/DL (1.8-2.4) Total Bilirubin 0.3 MG/DL (0.2-1.0) Aspartate Amino Transf (AST/SGOT) 36 U/L (15-37) Alanine Aminotransferase (ALT/SGPT) 30 U/L (12-78) Alkaline Phosphatase 84 U/L (46-116) C-Reactive Protein, Quantitative 5.9 mg/dL (0.00-0.90) H Pro-B-Type Natriuretic Peptide 3176 pg/mL (0-125) H Total Protein 6.7 G/DL (6.4-8.2) Albumin 2.2 G/DL (3.4-5.0) L Globulin 4.5 g/dL Albumin/Globulin Ratio 0.5 (1.0-2.7) L Current Medications Medications (Trade) Dose Ordered Sig/Dari Route PRN Reason Start Time Stop Time Status Last Admin Dose Admin Acetaminophen (Tylenol) 650 mg Q4H PRN ORAL Mild Pain (Scale 1-3), fever 10/11/17 16:45 11/10/17 16:44 Amlodipine Besylate (Norvasc) 2.5 mg DAILY ORAL 10/17/17 09:00 11/16/17 08:59 10/20/17 09:22 Bisacodyl (Dulcolax) 10 mg HSPRN PRN RECTAL Constipation 10/11/17 17:15 11/10/17 17:14 Chlorhexidine Gluconate (Sarah-Hex 2%) 1 applic DAILY@1999 TOPIC 10/17/17 20:00 11/16/17 19:59 10/23/17 20:22 Clotrimazole (Lotrimin) 1 applic EVERY 12 HOURS TOPIC 10/14/17 21:00 11/13/17 20:59 10/23/17 20:23 Daptomycin 670 mg/ Sodium Chloride 110 ml @ 220 mls/hr Q24H IV 10/22/17 17:00 10/29/17 23:59 10/23/17 17:50 Dextrose (Dextrose 50%) STAT PRN IV Hypoglycemia 10/11/17 16:45 11/10/17 16:44 Diphenhydramine HCl (Benadryl) 25 mg Q6H PRN ORAL Itching 10/22/17 23:45 11/21/17 23:44 10/23/17 04:04 Docusate Sodium (Colace) 100 mg TID ORAL 10/12/17 13:30 11/10/17 13:29 10/20/17 18:17 Doxazosin Mesylate (Cardura) 1 mg TID ORAL 10/16/17 13:00 11/15/17 12:59 10/24/17 17:09 Ertapenem 1 gm/ Sodium Chloride 55 ml @ 110 mls/hr Q24H IVPB 10/23/17 16:00 10/27/17 23:59 10/24/17 17:08 Finasteride (Proscar) 5 mg DAILY ORAL 10/12/17 09:00 11/11/17 08:59 10/20/17 09:22 Fluconazole (Diflucan) 100 mg DAILY ORAL 10/23/17 09:00 10/30/17 08:59 10/24/17 09:13 Heparin Sodium (Porcine) (Heparin 5000 units/ml) 5,000 units EVERY 12 HOURS SUBQ 10/11/17 21:00 11/10/17 20:59 10/17/17 22:12 Hydromorphone HCl (Dilaudid) 1 mg Q4H PRN IVP Severe Pain (Pain Scale 7-10) 10/18/17 17:00 10/25/17 16:59 10/24/17 14:05 Insulin Aspart (NovoLOG) BEFORE MEALS AND HS SUBQ 10/11/17 21:00 11/10/17 20:59 10/24/17 17:11 Insulin Detemir (Levemir) 12 units Q24H SUBQ 10/16/17 18:00 11/15/17 17:59 10/24/17 17:12 Menthol/Methyl Salicylate (Bengay) 1 applic BID TOPIC 10/18/17 20:00 11/17/17 19:59 10/23/17 09:26 Mirtazapine (Remeron) 15 mg BEDTIME ORAL 10/11/17 21:00 11/10/17 20:59 10/18/17 21:15 Ondansetron HCl (Zofran) 4 mg Q6H PRN IVP Nausea & Vomiting 10/11/17 16:45 11/10/17 16:44 Polyethylene Glycol (Miralax) 17 gm HSPRN PRN ORAL Constipation 10/11/17 16:45 11/10/17 16:44 Risperidone (RisperDAL) 1 mg BEDTIME ORAL 10/14/17 21:00 11/13/17 20:59 10/18/17 21:14 Sodium Hypochlorite (Dakin's Quarter Strength) 1 applic DAILY TOPIC 10/20/17 09:00 11/19/17 08:59 10/23/17 09:27 Tamsulosin HCl (Flomax) 0.4 mg BID ORAL 10/12/17 13:30 11/10/17 13:29 10/24/17 17:08 Vitamin B Complex/ Vit C/Folic Acid (Nephrovite) 1 tab DAILY ORAL 10/12/17 09:00 11/11/17 08:59 10/23/17 09:26 Vitamin D (Vitamin D) 2,000 intlu DAILY ORAL 10/22/17 09:00 11/21/17 08:59 10/24/17 09:00 LARON HERNANDEZ 12, 2018 17:37
[2017-10-24 20:00] VITALS: BP 147/68
--- NOTE | 2017-10-24 20:56 | General Progress Note ---
Assessment/Plan Problem List: (1) Gram-negative bacteremia Assessment & Plan: Bacterioides fragilis bacteremia ICD Codes: R78.81 - Bacteremia SNOMED: 951156360200 (2) Sepsis ICD Codes: A41.9 - Sepsis, unspecified organism SNOMED: 65360457 (3) Progressive osteomyelitis of the posterior calcaneus (4) Cellulitis of left lower extremity ICD Codes: L03.116 - Cellulitis of left lower limb SNOMED: 957775456 (5) L heel diabetic ulcer with concern for osteomyelitis (6) Complete tear with retraction of the calcaneal tendon (7) MISHEL on CKD (8) CKD stage 3 (9) DM2 (diabetes mellitus, type 2) Assessment & Plan: A1C 9.9 ICD Codes: E11.9 - Type 2 diabetes mellitus without complications SNOMED: 79208608 (10) HTN (hypertension) ICD Codes: I10 - Essential (primary) hypertension SNOMED: 37236575 (11) Diabetic neuropathy ICD Codes: E11.40 - Type 2 diabetes mellitus with diabetic neuropathy, unspecified SNOMED: 27078131, 785818260, 860780069 (12) Diabetic nephropathy ICD Codes: E11.21 - Type 2 diabetes mellitus with diabetic nephropathy SNOMED: 70249079, 127807807 Qualifiers: Qualified Codes: E11.21 - Type 2 diabetes mellitus with diabetic nephropathy (13) Hyponatremia ICD Codes: E87.1 - Hypo-osmolality and hyponatremia SNOMED: 71797824 (14) Chronic diabetic ulcer right foot (15) Medical non-compliance ICD Codes: Z91.19 - Patient's noncompliance with other medical treatment and regimen SNOMED: 949606667 Status: stable Assessment/Plan Podiatry, ID, renal consulted s/p vanco (10/11-10/16) Cont meropenem (10/14-) Cont daptomycin 8mg/kg for VRE (10/17-) Will need total of 6 weeks of IV abx per ID given osteomyelitis s/p cefepime and flagyl (10/11-10/14) F/u cultures--blood culture showing GNR, wound culture showing Klebsiella and Proteus F/u repeat blood cultures--ngtd PICC line placed 10/17/17 Wound care per podiatry Check MRI L foot--shows progressive osteomyelitis, heel ulceration, soft tissue gas, complete tear of Achilles tendon s/p incision and drainage left foot, excisional debridement to the level of muscle left foot, and partial calcanectomy left foot on 10/13/17 NWB LLE Off wound vac now per podiatry IVFs given MISHEL Avoid nephrotoxins Check renal U/S--shows bladder volume 337mL, refused connolly Flomax 0.4mg BID + finasteride 5mg daily Check TTE--EF 55-60% Pain control, bowel regimen Supportive care Cont SNF meds but hold lasix, MTF for now ZENIA DC once authorization for SNF obtained DVT Prophylaxis: HSQ Code Status: Full Hospital Classification Declaration: Based on this initial evaluation, and depending on the patient's clinical course, I anticipate that this patient will require hospitalization for 0-1 day for LLE cellulitis, L heel diabetic ulcer w / concern for osteo, and close respiratory/hemodynamic monitoring. Disposition: Once the patient is stable to leave the hospital, I anticipate the patient will likely be discharged to the following environment: back to SNF Discussed with patient/family, nursing staff, SW/CM, podiatry, ID regarding clinical status, treatment course, and disposition planning. D/w ID re abx on d/ c. D/w podiatry re wound vac, d/c plan. D/w CM re dispo Time of note may not reflect time of encounter Subjective Date patient seen: Oct 24, 2017 Time patient seen: 14:00 ROS Limited/Unobtainable: No Constitutional: Reports: no symptoms HEENT: Reports: no symptoms Cardiovascular: Reports: no symptoms Respiratory: Reports: no symptoms Gastrointestinal/Abdominal: Reports: no symptoms Genitourinary: Reports: no symptoms Neurologic/Psychiatric: Reports: no symptoms Endocrine: Reports: no symptoms Hematologic/Lymphatic: Reports: no symptoms Allergies: Coded Allergies: GABAPENTIN (Verified Allergy, Unknown, 10/11/17) OLIVE OIL (Verified Adverse Reaction, Severe, SPASM IN THE COLON, 01/18/14) PREGABALIN (Verified Adverse Reaction, Intermediate, "hypernervous", ) ACETAMINOPHEN (Verified Adverse Reaction, Mild, IRRITABILITY AND ELEVATED BLOOD PRESSURE, 01/18/14) IBUPROFEN (Verified Adverse Reaction, Mild, IRRITABILITY AND ELEVATED BLOOD PRESSURE, 01/18/14) Uncoded Allergies: SSRI (Allergy, Unknown, 10/11/17) Subjective No acute o/n events MRI L foot shows progressive osteomyelitis, heel ulcer, soft tissue gas, complete tear of Achilles tendon s/p incision and drainage left foot, excisional debridement to the level of muscle left foot, and partial calcanectomy left foot POD#11 Blood cultures growing Bacterioides fragilis. Repeat blood cultures neg Wound culture showing proteus and klebsiella--now also showing VRE. D/w ID and pt started on daptomycin Awaiting authorization for SNF as pt's Medicare days have run out Pt is noncompliant with meds Pt c/o foot pain. Lethargic, some chills. Denies n/v, d/c, chest pain, SOB, abd pain Objective Last 24 Hour Vital Signs Date Time Temp Pulse Resp B/P (MAP) Pulse Ox O2 Delivery O2 Flow Rate FiO2 10/24/17 20:00 98.2 60 20 147/68 97 98.2 10/24/17 16:00 97.7 59 18 155/71 98 Room Air 97.7 10/24/17 12:00 98.1 64 18 157/67 98 Room Air 98.1 10/24/17 09:00 73 176/77 10/24/17 08:00 98.2 20 176/77 97 98.2 10/24/17 04:00 98.5 67 20 150/61 98 98.5 10/24/17 00:00 98.2 68 20 165/66 100 98.2 Intake and Output 10/23/17 10/24/17 19:00 07:00 Intake Total 600 ml Output Total 200 ml Balance 600 ml -200 ml Intake Oral 600 ml Output Urine Total 200 ml # Voids 4 # Bowel Movements 1 1 Laboratory Tests 10/24/17 06:20: White Blood Count 10.0, Red Blood Count 3.68L, Hemoglobin 9.4L, Hematocrit 29.5L , Mean Corpuscular Volume 80, Mean Corpuscular Hemoglobin 25.5L, Mean Corpuscular Hemoglobin Concent 31.9L, Red Cell Distribution Width 15.6H, Platelet Count 460H, Mean Platelet Volume 5.1L, Neutrophils (%) (Auto) 66.3, Lymphocytes (%) (Auto) 22.0, Monocytes (%) (Auto) 3.9, Eosinophils (%) (Auto) 6.3H, Basophils (%) (Auto) 1.4, Sodium Level 138, Potassium Level 3.7, Chloride Level 105, Carbon Dioxide Level 25, Anion Gap 8, Blood Urea Nitrogen 19H, Creatinine 1.5H, Estimat Glomerular Filtration Rate , Glucose Level 188H, Uric Acid 6.1, Calcium Level 8.0L, Phosphorus Level 2.8, Magnesium Level 1.8, Total Bilirubin 0.3, Aspartate Amino Transf (AST/SGOT) 36, Alanine Aminotransferase ( ALT/SGPT) 30, Alkaline Phosphatase 84, C-Reactive Protein, Quantitative 5.9H, Pro-B-Type Natriuretic Peptide 3176H, Total Protein 6.7, Albumin 2.2L, Globulin 4.5, Albumin/Globulin Ratio 0.5L Height (Feet): 5 Height (Inches): 8.00 Weight (Pounds): 185 Objective General: alert, cooperative, no distress, appears stated age Head: normocephalic, without obvious abnormality, atraumatic Eyes: conjunctivae/corneas clear. PERRL, EOM's intact Throat: lips, mucosa, and tongue normal. MMM Neck: supple, symmetrical, trachea midline, and no JVD Lungs: clear to auscultation bilaterally Heart: regular rate and rhythm, S1, S2 normal, no murmur, click, rub or gallop Abdomen: soft, non-tender, non-distended, bowel sounds normal Extremities: extremities normal, atraumatic, no cyanosis, 1-2+ pitting edema BLE Pulses: 2+ and symmetric Skin: Left foot dressing c/d/i, Right foot dressing c/d/i Neurologic: grossly normal, no focal deficits Conner Orozco M.D. Oct 24, 2017 20:55
[2017-10-24] MEDS: Dyna-Hex 2% Top Sol 2oz TOPIC SCH (22:36)
--- NOTE | 2017-10-24 23:02 | General Progress Note ---
Assessment/Plan Problem List: (1) Dementia with behavioral disturbance Assessment & Plan: Dementia with behavior disturbance and agitation. lacks capacity to make decisions lacks capacity to refuse meds PLAN: 1. Continue risperidone 1 mg at bedtime. 2. Continue Remeron 15 at bedtime. 3. Continue to follow and readjust the medications. ICD Codes: F03.91 - Unspecified dementia with behavioral disturbance SNOMED: 7652254278901 Assessment/Plan Dementia with behavior disturbance and agitation. lacks capacity to make decisions lacks capacity to refuse meds PLAN: 1. Continue risperidone 1 mg at bedtime. 2. Continue Remeron 15 at bedtime. 3. Continue to follow and readjust the medications. Subjective Date patient seen: Oct 24, 2017 Neurologic/Psychiatric: Reports: anxiety, depressed Allergies: Coded Allergies: GABAPENTIN (Verified Allergy, Unknown, 10/11/17) OLIVE OIL (Verified Adverse Reaction, Severe, SPASM IN THE COLON, 01/18/14) PREGABALIN (Verified Adverse Reaction, Intermediate, "hypernervous", ) ACETAMINOPHEN (Verified Adverse Reaction, Mild, IRRITABILITY AND ELEVATED BLOOD PRESSURE, 01/18/14) IBUPROFEN (Verified Adverse Reaction, Mild, IRRITABILITY AND ELEVATED BLOOD PRESSURE, 01/18/14) Uncoded Allergies: SSRI (Allergy, Unknown, 10/11/17) Subjective episodes of confusion. noncompliant again Objective Last 24 Hour Vital Signs Date Time Temp Pulse Resp B/P (MAP) Pulse Ox O2 Delivery O2 Flow Rate FiO2 10/24/17 22:46 98.2 10/24/17 20:00 98.2 60 20 147/68 97 98.2 10/24/17 16:00 97.7 59 18 155/71 98 Room Air 97.7 10/24/17 12:00 98.1 64 18 157/67 98 Room Air 98.1 10/24/17 09:00 73 176/77 10/24/17 08:00 98.2 20 176/77 97 98.2 10/24/17 04:00 98.5 67 20 150/61 98 98.5 10/24/17 00:00 98.2 68 20 165/66 100 98.2 Intake and Output 10/23/17 10/24/17 19:00 07:00 Intake Total 600 ml Output Total 200 ml Balance 600 ml -200 ml Intake Oral 600 ml Output Urine Total 200 ml # Voids 4 # Bowel Movements 1 1 Laboratory Tests 10/24/17 06:20: White Blood Count 10.0, Red Blood Count 3.68L, Hemoglobin 9.4L, Hematocrit 29.5L , Mean Corpuscular Volume 80, Mean Corpuscular Hemoglobin 25.5L, Mean Corpuscular Hemoglobin Concent 31.9L, Red Cell Distribution Width 15.6H, Platelet Count 460H, Mean Platelet Volume 5.1L, Neutrophils (%) (Auto) 66.3, Lymphocytes (%) (Auto) 22.0, Monocytes (%) (Auto) 3.9, Eosinophils (%) (Auto) 6.3H, Basophils (%) (Auto) 1.4, Sodium Level 138, Potassium Level 3.7, Chloride Level 105, Carbon Dioxide Level 25, Anion Gap 8, Blood Urea Nitrogen 19H, Creatinine 1.5H, Estimat Glomerular Filtration Rate , Glucose Level 188H, Uric Acid 6.1, Calcium Level 8.0L, Phosphorus Level 2.8, Magnesium Level 1.8, Total Bilirubin 0.3, Aspartate Amino Transf (AST/SGOT) 36, Alanine Aminotransferase ( ALT/SGPT) 30, Alkaline Phosphatase 84, C-Reactive Protein, Quantitative 5.9H, Pro-B-Type Natriuretic Peptide 3176H, Total Protein 6.7, Albumin 2.2L, Globulin 4.5, Albumin/Globulin Ratio 0.5L Height (Feet): 5 Height (Inches): 8.00 Weight (Pounds): 185 General Appearance: no apparent distress, alert Neurologic: alert, responsive, depressed affect Milton Lancaster M.D. Oct 24, 2017 23:02
--- NOTE | 2017-10-24 23:03 | Geriatric Progress Note ---
Assessment/Plan Assessment/Plan Encephalopathy, agitation, psychotic disorder. Subjective Interval Events 10/23/17 Mood/Memory: Reports: prior hx, anxiety, depressed feelings Geriatric Geriatric Last 24 Hour Vital Signs Date Time Temp Pulse Resp B/P (MAP) Pulse Ox O2 Delivery O2 Flow Rate FiO2 10/24/17 22:46 98.2 10/24/17 20:00 98.2 60 20 147/68 97 98.2 10/24/17 16:00 97.7 59 18 155/71 98 Room Air 97.7 10/24/17 12:00 98.1 64 18 157/67 98 Room Air 98.1 10/24/17 09:00 73 176/77 10/24/17 08:00 98.2 20 176/77 97 98.2 10/24/17 04:00 98.5 67 20 150/61 98 98.5 10/24/17 00:00 98.2 68 20 165/66 100 98.2 Intake and Output 10/23/17 10/24/17 19:00 07:00 Intake Total 600 ml Output Total 200 ml Balance 600 ml -200 ml Intake Oral 600 ml Output Urine Total 200 ml # Voids 4 # Bowel Movements 1 1 Laboratory Tests Test 10/24/17 06:20 White Blood Count 10.0 K/UL (4.8-10.8) Red Blood Count 3.68 M/UL (4.70-6.10) L Hemoglobin 9.4 G/DL (14.2-18.0) L Hematocrit 29.5 % (42.0-52.0) L Mean Corpuscular Volume 80 FL (80-99) Mean Corpuscular Hemoglobin 25.5 PG (27.0-31.0) L Mean Corpuscular Hemoglobin Concent 31.9 G/DL (32.0-36.0) L Red Cell Distribution Width 15.6 % (11.6-14.8) H Platelet Count 460 K/UL (150-450) H Mean Platelet Volume 5.1 FL (6.5-10.1) L Neutrophils (%) (Auto) 66.3 % (45.0-75.0) Lymphocytes (%) (Auto) 22.0 % (20.0-45.0) Monocytes (%) (Auto) 3.9 % (1.0-10.0) Eosinophils (%) (Auto) 6.3 % (0.0-3.0) H Basophils (%) (Auto) 1.4 % (0.0-2.0) Sodium Level 138 MMOL/L (136-145) Potassium Level 3.7 MMOL/L (3.5-5.1) Chloride Level 105 MMOL/L (98-107) Carbon Dioxide Level 25 MMOL/L (21-32) Anion Gap 8 mmol/L (5-15) Blood Urea Nitrogen 19 mg/dL (7-18) H Creatinine 1.5 MG/DL (0.55-1.30) H Estimat Glomerular Filtration Rate mL/min (>60) Glucose Level 188 MG/DL (74-106) H Uric Acid 6.1 MG/DL (2.6-7.2) Calcium Level 8.0 MG/DL (8.5-10.1) L Phosphorus Level 2.8 MG/DL (2.5-4.9) Magnesium Level 1.8 MG/DL (1.8-2.4) Total Bilirubin 0.3 MG/DL (0.2-1.0) Aspartate Amino Transf (AST/SGOT) 36 U/L (15-37) Alanine Aminotransferase (ALT/SGPT) 30 U/L (12-78) Alkaline Phosphatase 84 U/L (46-116) C-Reactive Protein, Quantitative 5.9 mg/dL (0.00-0.90) H Pro-B-Type Natriuretic Peptide 3176 pg/mL (0-125) H Total Protein 6.7 G/DL (6.4-8.2) Albumin 2.2 G/DL (3.4-5.0) L Globulin 4.5 g/dL Albumin/Globulin Ratio 0.5 (1.0-2.7) L Current Medications Medications (Trade) Dose Ordered Sig/Dari Route PRN Reason Start Time Stop Time Status Last Admin Dose Admin Acetaminophen (Tylenol) 650 mg Q4H PRN ORAL Mild Pain (Scale 1-3), fever 10/11/17 16:45 11/10/17 16:44 Amlodipine Besylate (Norvasc) 2.5 mg DAILY ORAL 10/17/17 09:00 11/16/17 08:59 10/20/17 09:22 Ascorbic Acid (Vitamin C) 500 mg DAILY ORAL 10/25/17 09:00 4/12/18 08:59 Bisacodyl (Dulcolax) 10 mg HSPRN PRN RECTAL Constipation 10/11/17 17:15 11/10/17 17:14 Chlorhexidine Gluconate (Sarah-Hex 2%) 1 applic DAILY@2000 TOPIC 10/17/17 20:00 11/16/17 19:59 10/24/17 22:36 Clotrimazole (Lotrimin) 1 applic EVERY 12 HOURS TOPIC 10/14/17 21:00 11/13/17 20:59 10/24/17 21:00 Daptomycin 670 mg/ Sodium Chloride 110 ml @ 220 mls/hr Q24H IV 10/22/17 17:00 10/29/17 23:59 10/24/17 17:00 Dextrose (Dextrose 50%) STAT PRN IV Hypoglycemia 10/11/17 16:45 11/10/17 16:44 Diphenhydramine HCl (Benadryl) 25 mg Q6H PRN ORAL Itching 10/22/17 23:45 11/21/17 23:44 10/23/17 04:04 Docusate Sodium (Colace) 100 mg TID ORAL 10/12/17 13:30 11/10/17 13:29 10/20/17 18:17 Doxazosin Mesylate (Cardura) 1 mg TID ORAL 10/16/17 13:00 11/15/17 12:59 10/24/17 17:09 Ertapenem 1 gm/ Sodium Chloride 55 ml @ 110 mls/hr Q24H IVPB 10/23/17 16:00 10/27/17 23:59 10/24/17 17:08 Finasteride (Proscar) 5 mg DAILY ORAL 10/12/17 09:00 11/11/17 08:59 10/20/17 09:22 Fluconazole (Diflucan) 100 mg DAILY ORAL 10/23/17 09:00 10/30/17 08:59 10/24/17 09:13 Heparin Sodium (Porcine) (Heparin 5000 units/ml) 5,000 units EVERY 12 HOURS SUBQ 10/11/17 21:00 11/10/17 20:59 10/24/17 22:35 Hydromorphone HCl (Dilaudid) 1 mg Q4H PRN IVP Severe Pain (Pain Scale 7-10) 10/18/17 17:00 10/25/17 16:59 10/24/17 22:46 Insulin Aspart (NovoLOG) BEFORE MEALS AND HS SUBQ 10/11/17 21:00 11/10/17 20:59 10/24/17 21:53 Insulin Detemir (Levemir) 12 units Q24H SUBQ 10/16/17 18:00 11/15/17 17:59 10/24/17 17:12 Menthol/Methyl Salicylate (Bengay) 1 applic BID TOPIC 10/18/17 20:00 11/17/17 19:59 10/23/17 09:26 Mirtazapine (Remeron) 15 mg BEDTIME ORAL 10/11/17 21:00 11/10/17 20:59 10/24/17 22:34 Ondansetron HCl (Zofran) 4 mg Q6H PRN IVP Nausea & Vomiting 10/11/17 16:45 11/10/17 16:44 Polyethylene Glycol (Miralax) 17 gm HSPRN PRN ORAL Constipation 10/11/17 16:45 11/10/17 16:44 Risperidone (RisperDAL) 1 mg BEDTIME ORAL 10/14/17 21:00 11/13/17 20:59 10/24/17 22:34 Sodium Hypochlorite (Dakin's Quarter Strength) 1 applic DAILY TOPIC 10/20/17 09:00 11/19/17 08:59 10/23/17 09:27 Tamsulosin HCl (Flomax) 0.4 mg BID ORAL 10/12/17 13:30 11/10/17 13:29 10/24/17 17:08 Vitamin B Complex/ Vit C/Folic Acid (Nephrovite) 1 tab DAILY ORAL 10/12/17 09:00 11/11/17 08:59 10/23/17 09:26 Vitamin D (Vitamin D) 2,000 intlu DAILY ORAL 10/22/17 09:00 11/21/17 08:59 10/24/17 09:00 Height (Feet): 5 Height (Inches): 8.00 Weight (Pounds): 185 General Appearance: well appearing, well dressed, well groomed, alert Milton Lancaster M.D. Oct 24, 2017 23:03
[2017-10-25] VITALS: BP 133/78
[2017-10-25 04:00] VITALS: BP 142/65
[2017-10-25] MEDS: NovoLOG Insulin Flexpen SUBQ SCH ×4 (06:20→21:31)
[2017-10-25 08:00] VITALS: BP 116/66
[2017-10-25] MEDS: Doxazosin 1mg Tab ORAL SCH ×3 (09:00→17:20)
[2017-10-25] MEDS: Docusate 100mg cap ORAL SCH ×3 (09:00→17:20)
[2017-10-25] MEDS: Heparin 5000 units/ml inj SUBQ SCH ×2 (09:00→21:00)
[2017-10-25] MEDS: Tamsulosin 0.4mg cap ORAL SCH ×2 (09:00→17:21)
[2017-10-25] MEDS: Fluconazole 100mg tab ORAL SCH (09:28)
[2017-10-25] MEDS: Nephrovite tab (Rena-Vite) ORAL SCH (09:28)
[2017-10-25] MEDS: Vitamin D 1000 IU Tab ORAL SCH (09:29)
[2017-10-25] MEDS: Ascorbic Acid 500mg tab ORAL SCH (09:29)
[2017-10-25] MEDS: Dakin's 0.125% Soln (Quarter Strength) 16oz TOPIC SCH (09:31)
[2017-10-25] MEDS: Analgesic Balm 15gm TOPIC SCH ×2 (09:42→17:21)
--- NOTE | 2017-10-25 11:15 | General Progress Note ---
Assessment/Plan Assessment/Plan #. Leukocytosis, status post debridement, gram-negative jasmyn infection noted. --> Wbc count has been downtrending and improving --> Remains on meropenem. Monitor closely. --> Infectious Disease Service following. #. Anemia due to underlying chronic disease. --> Continue to closely monitor. Hemoglobin goal is above 7 --> anemia workup reviewed. Iron 9, TIBC 127, B12 1791, Folate 41 --> Hemoglobin has been above goal, no prbc needed. Hemoglobin improved from yesterday. #. Anemia of iron deficiency, potentially secondary to osteomyelitis. --> Monitor closely. Trend cbc. #. Anemia due to underlying kidney disease. --> Closely monitor, again improving. #. Thrombocytosis, likely reactive process from underlying anemia, closely monitor for improvement. #. Elevated creatinine, chronic kidney disease. #. Diabetes mellitus, on insulin sliding scale as needed as per primary team. #. Diastolic dysfunction. Subjective Date patient seen: Oct 24, 2017 Constitutional: Denies: no symptoms, chills, diaphoresis, fever, malaise, weakness, other HEENT: Denies: no symptoms, eye pain, blurred vision, tearing, double vision, ear pain, ear discharge, nose pain, nose congestion, throat pain, throat swelling, mouth pain, mouth swelling, other Cardiovascular: Denies: no symptoms, chest pain, edema, irregular heart rate, lightheadedness, palpitations, syncope, other Respiratory: Denies: no symptoms, cough, orthopnea, shortness of breath, SOB with excertion, SOB at rest, sputum, stridor, wheezing, other Gastrointestinal/Abdominal: Denies: no symptoms, abdomen distended, abdominal pain, black stools, tarry stools, blood in stool, constipated, diarrhea, difficulty swallowing, nausea, poor appetite, poor fluid intake, rectal bleeding , vomiting, other Genitourinary: Denies: no symptoms, burning, discharge, frequency, flank pain, hematuria, incontinence, pain, urgency, other Neurologic/Psychiatric: Denies: no symptoms, anxiety, depressed, emotional problems, headache, numbness, paresthesia, pre-existing deficit, seizure, tingling, tremors, weakness, other Hematologic/Lymphatic: Reports: anemia Allergies: Coded Allergies: GABAPENTIN (Verified Allergy, Unknown, 10/11/17) OLIVE OIL (Verified Adverse Reaction, Severe, SPASM IN THE COLON, 01/18/14) PREGABALIN (Verified Adverse Reaction, Intermediate, "hypernervous", ) ACETAMINOPHEN (Verified Adverse Reaction, Mild, IRRITABILITY AND ELEVATED BLOOD PRESSURE, 01/18/14) IBUPROFEN (Verified Adverse Reaction, Mild, IRRITABILITY AND ELEVATED BLOOD PRESSURE, 01/18/14) Uncoded Allergies: SSRI (Allergy, Unknown, 10/11/17) Subjective Lethargic and confused. Noncompliant with some treatments. No new events. Objective Last 24 Hour Vital Signs Date Time Temp Pulse Resp B/P (MAP) Pulse Ox O2 Delivery O2 Flow Rate FiO2 10/25/17 08:00 98.6 70 18 116/66 98 98.6 10/25/17 04:00 98.1 75 18 142/65 95 98.1 10/25/17 00:00 98.6 88 18 133/78 98 98.6 10/24/17 22:46 98.2 10/24/17 20:00 98.2 60 20 147/68 97 98.2 10/24/17 16:00 97.7 59 18 155/71 98 Room Air 97.7 10/24/17 12:00 98.1 64 18 157/67 98 Room Air 98.1 Intake and Output 10/24/17 10/25/17 19:00 07:00 Intake Total 240 ml Output Total 600 ml 650 ml Balance -360 ml -650 ml Intake Oral 240 ml Output Urine Total 600 ml 650 ml # Bowel Movements 4 Height (Feet): 5 Height (Inches): 8.00 Weight (Pounds): 185 General Appearance: agitated Respiratory/Chest: decreased breath sounds Abdomen: non tender, soft Giovany Wiggins Oct 25, 2017 11:15
[2017-10-25 12:00] VITALS: BP 134/56
[2017-10-25] MEDS: oxyCODONE 5mg IR tab ORAL PRN (12:17)
--- NOTE | 2017-10-25 12:29 | Consultation ---
Consult Note Consult Note HBO THERAPY CONSULTATION. Chart reviewed, Patient examined. Note dictated. Patient qualifies for HBO Txc for treatment of L heel ulcer with Osteo. P: will make arrangements to proceed after Patient is discharged to [facility]CF and if he agrees. HANNAH HERNANDEZ Oct 25, 2017 12:29
--- NOTE | 2017-10-25 13:25 | General Progress Note ---
Assessment/Plan Problem List: (1) Gram-negative bacteremia Assessment & Plan: Bacterioides fragilis bacteremia ICD Codes: R78.81 - Bacteremia SNOMED: 488956702404 (2) Sepsis ICD Codes: A41.9 - Sepsis, unspecified organism SNOMED: 61482638 (3) Progressive osteomyelitis of the posterior calcaneus (4) Cellulitis of left lower extremity ICD Codes: L03.116 - Cellulitis of left lower limb SNOMED: 873192902 (5) L heel diabetic ulcer with concern for osteomyelitis (6) Complete tear with retraction of the calcaneal tendon (7) MISHEL on CKD (8) CKD stage 3 (9) DM2 (diabetes mellitus, type 2) Assessment & Plan: A1C 9.9 ICD Codes: E11.9 - Type 2 diabetes mellitus without complications SNOMED: 34725193 (10) HTN (hypertension) ICD Codes: I10 - Essential (primary) hypertension SNOMED: 89754337 (11) Diabetic neuropathy ICD Codes: E11.40 - Type 2 diabetes mellitus with diabetic neuropathy, unspecified SNOMED: 59992749, 034097719, 108492049 (12) Diabetic nephropathy ICD Codes: E11.21 - Type 2 diabetes mellitus with diabetic nephropathy SNOMED: 67321506, 589257364 Qualifiers: Qualified Codes: E11.21 - Type 2 diabetes mellitus with diabetic nephropathy (13) Hyponatremia ICD Codes: E87.1 - Hypo-osmolality and hyponatremia SNOMED: 37145491 (14) Chronic diabetic ulcer right foot (15) Medical non-compliance ICD Codes: Z91.19 - Patient's noncompliance with other medical treatment and regimen SNOMED: 327946896 (16) Acute on chronic diastolic (congestive) heart failure ICD Codes: I50.33 - Acute on chronic diastolic (congestive) heart failure SNOMED: 24974621, 151042420 Status: stable Assessment/Plan Podiatry, ID, renal consulted s/p vanco (10/11-10/16) Cont meropenem (10/14-) Cont daptomycin 8mg/kg for VRE (10/17-) Will need total of 6 weeks of IV abx per ID given osteomyelitis s/p cefepime and flagyl (10/11-10/14) F/u cultures--blood culture showing GNR, wound culture showing Klebsiella and Proteus F/u repeat blood cultures--ngtd PICC line placed 10/17/17 Wound care per podiatry Check MRI L foot--shows progressive osteomyelitis, heel ulceration, soft tissue gas, complete tear of Achilles tendon s/p incision and drainage left foot, excisional debridement to the level of muscle left foot, and partial calcanectomy left foot on 10/13/17 NWB LLE Off wound vac now per podiatry Check renal U/S--shows bladder volume 337mL, refused connolly Flomax 0.4mg BID + finasteride 5mg daily Check TTE--EF 55-60% Lasix 40mg IV for fluid overload Pain control, bowel regimen Supportive care Cont SNF meds but hold lasix, MTF for now ZENIA DC once authorization for SNF obtained DVT Prophylaxis: HSQ Code Status: Full Hospital Classification Declaration: Based on this initial evaluation, and depending on the patient's clinical course, I anticipate that this patient will require hospitalization for 0-1 day for LLE cellulitis, L heel diabetic ulcer w / concern for osteo, and close respiratory/hemodynamic monitoring. Disposition: Once the patient is stable to leave the hospital, I anticipate the patient will likely be discharged to the following environment: back to SNF Discussed with patient/family, nursing staff, SW/CM, podiatry, ID regarding clinical status, treatment course, and disposition planning. D/w ID re abx on d/ c. D/w podiatry re wound vac, d/c plan. D/w CM re dispo Time of note may not reflect time of encounter Subjective Date patient seen: Oct 25, 2017 Time patient seen: 13:25 ROS Limited/Unobtainable: No Constitutional: Reports: weakness HEENT: Reports: no symptoms Cardiovascular: Reports: no symptoms Respiratory: Reports: no symptoms Gastrointestinal/Abdominal: Reports: no symptoms Genitourinary: Reports: no symptoms Neurologic/Psychiatric: Reports: no symptoms Endocrine: Reports: no symptoms Hematologic/Lymphatic: Reports: no symptoms Allergies: Coded Allergies: GABAPENTIN (Verified Allergy, Unknown, 10/11/17) OLIVE OIL (Verified Adverse Reaction, Severe, SPASM IN THE COLON, 01/18/14) PREGABALIN (Verified Adverse Reaction, Intermediate, "hypernervous", ) ACETAMINOPHEN (Verified Adverse Reaction, Mild, IRRITABILITY AND ELEVATED BLOOD PRESSURE, 01/18/14) IBUPROFEN (Verified Adverse Reaction, Mild, IRRITABILITY AND ELEVATED BLOOD PRESSURE, 01/18/14) Uncoded Allergies: SSRI (Allergy, Unknown, 10/11/17) Subjective No acute o/n events MRI L foot shows progressive osteomyelitis, heel ulcer, soft tissue gas, complete tear of Achilles tendon s/p incision and drainage left foot, excisional debridement to the level of muscle left foot, and partial calcanectomy left foot POD#11 Blood cultures growing Bacterioides fragilis. Repeat blood cultures neg Wound culture showing proteus and klebsiella--now also showing VRE. D/w ID and pt started on daptomycin Awaiting authorization for SNF as pt's Medicare days have run out Pt is noncompliant with meds Pt feels depressed and frustrated that he is still here Pt c/o foot pain. More awake, alert. Denies n/v, d/c, chest pain, SOB, abd pain Objective Last 24 Hour Vital Signs Date Time Temp Pulse Resp B/P (MAP) Pulse Ox O2 Delivery O2 Flow Rate FiO2 10/25/17 08:00 98.6 70 18 116/66 98 98.6 10/25/17 04:00 98.1 75 18 142/65 95 98.1 10/25/17 00:00 98.6 88 18 133/78 98 98.6 10/24/17 22:46 98.2 10/24/17 20:00 98.2 60 20 147/68 97 98.2 10/24/17 16:00 97.7 59 18 155/71 98 Room Air 97.7 Intake and Output 10/24/17 10/25/17 19:00 07:00 Intake Total 240 ml Output Total 600 ml 650 ml Balance -360 ml -650 ml Intake Oral 240 ml Output Urine Total 600 ml 650 ml # Bowel Movements 4 Height (Feet): 5 Height (Inches): 8.00 Weight (Pounds): 185 Objective General: alert, cooperative, no distress, appears stated age Head: normocephalic, without obvious abnormality, atraumatic Eyes: conjunctivae/corneas clear. PERRL, EOM's intact Throat: lips, mucosa, and tongue normal. MMM Neck: supple, symmetrical, trachea midline, and no JVD Lungs: clear to auscultation bilaterally Heart: regular rate and rhythm, S1, S2 normal, no murmur, click, rub or gallop Abdomen: soft, non-tender, non-distended, bowel sounds normal Extremities: extremities normal, atraumatic, no cyanosis, 1-2+ pitting edema BLE Pulses: 2+ and symmetric Skin: Left foot dressing c/d/i, Right foot dressing c/d/i Neurologic: grossly normal, no focal deficits Conner Orozco M.D. Oct 25, 2017 13:25
[2017-10-25] MEDS: oxyCONTIN 10mg tab ORAL SCH ×2 (14:00→21:29)
[2017-10-25 16:00] VITALS: BP 154/64
--- NOTE | 2017-10-25 16:18 | Nephrology Progress Note ---
Assessment/Plan Problem List: (1) HTN (hypertension) (2) Diabetes mellitus (3) Ulcer of left heel (4) Renal insufficiency Assessment Foot ulcer, left left leg cellulitis, left heel ulcer, ? osteo, leukocytosis, lgt Renal insufficiency acute vs chronic Cr lowering now 1.5 Urinary retention: REFUSES NG Anemia UTI Plan no labs today Avoid Nephrotoxics Keep BP in check monitor renal parameters Anemia henry urine studies flomax start cardura Kidney FAMILIA Unremarkable kidneys. Negative for hydronephrosis Note inability of the patient to void with a bladder volume of 337 mL 2D echo :Left ventricular ejection fraction estimated to be 55-60%. No evidence of left ventricular hypertrophy. Subjective ROS Limited/Unobtainable: No Objective Objective Last 24 Hour Vital Signs Date Time Temp Pulse Resp B/P (MAP) Pulse Ox O2 Delivery O2 Flow Rate FiO2 10/25/17 12:00 97.7 79 19 134/56 97 97.7 10/25/17 08:00 98.6 70 18 116/66 98 98.6 10/25/17 04:00 98.1 75 18 142/65 95 98.1 10/25/17 00:00 98.6 88 18 133/78 98 98.6 10/24/17 22:46 98.2 10/24/17 20:00 98.2 60 20 147/68 97 98.2 Intake and Output 10/24/17 10/25/17 19:00 07:00 Intake Total 240 ml Output Total 600 ml 650 ml Balance -360 ml -650 ml Intake Oral 240 ml Output Urine Total 600 ml 650 ml # Bowel Movements 4 Height (Feet): 5 Height (Inches): 8.00 Weight (Pounds): 185 General Appearance: no apparent distress Objective no other changes IHSAN REGALADO Oct 25, 2017 16:18
[2017-10-25] MEDS: Ertapenem 1 GM in NS 55 ML IVPB SCH (16:30)
[2017-10-25] MEDS: DAPTOMYCIN IV SCH (17:20)
[2017-10-25] MEDS: NS IV SCH (17:20)
[2017-10-25] MEDS: Levemir Flexpen SUBQ SCH (17:24)
[2017-10-25 20:00] VITALS: BP 142/75
--- NOTE | 2017-10-25 20:15 | Consultation ---
DATE OF CONSULTATION: 10/25/2017 HYPERBARIC OXYGEN THERAPY CONSULTATION CONSULTING PHYSICIAN: Mir Man M.D. ATTENDING PHYSICIANS: 1. Gaurav Lomeli M.D. 2. Raymundo Velasquez D.P.M. REASON FOR CONSULTATION: Evaluation for hyperbaric oxygen therapy. HISTORY OF PRESENT ILLNESS: The patient is a 72-year-old white male with multiple medical problems, including diabetes, peripheral vascular disease as well as nonhealing ulcers of the lower extremities, who was admitted because of an ulcer of the left heel, which was diagnosed with osteomyelitis. The patient was admitted and has undergone debridement of the left heel wound and has been on antibiotic therapy. The patient has been seen by Infectious Disease leasing sales consultant and he is currently being treated with IV antibiotics. The patient also has had renal failure with elevation of creatinine and has been followed by Dr. Edwards. Request for hyperbaric oxygen therapy was placed by Dr. Velasquez in order to arrange for hyperbaric oxygen therapy after discharge, in order to increase chances of curing the underlying osteomyelitis of the left heel. The patient has had previous hyperbaric oxygen therapy, but stopped a while ago and currently lives in an extended care facility. PAST MEDICAL HISTORY: 1. Hypertension. 2. Diabetes. 3. Coronary artery disease. 4. History of congestive heart failure. 5. Anemia. 6. Peripheral vascular disease. 7. Ulcers of the lower extremities. MEDICATIONS: Current medications include OxyContin p.r.n., vitamin C, Diflucan 100 mg daily, Benadryl p.r.n., vitamin D, Norvasc 2.5 mg daily, insulin, Cardura 1 mg daily, Lotrimin q.12 h., Risperdal 1 mg at bedtime, Colace daily, Flomax 0.4 mg, finasteride 5 mg daily, and Remeron 15 mg at bedtime. REVIEW OF SYSTEMS: GENERAL: Denies weight loss, fever, chills, or night sweats. HEENT: Denies headache or sinus problem. PULMONARY: Denies cough, but complains of shortness of breath. GASTROINTESTINAL: Denies dysphagia, dyspepsia, abdominal pain, nausea, vomiting, or diarrhea. CARDIAC: Denies chest pain or palpitations, but has lower extremity edema. GENITOURINARY: Denies dysuria or hematuria. MUSCULOSKELETAL: Complains of pain in the left foot. PHYSICAL EXAMINATION: GENERAL: The patient is alert and oriented male. VITAL SIGNS: Blood pressure is 116/66, temperature afebrile, and heart rate is 70. HEENT: Unremarkable except for poor dentition. NECK: Supple. LUNGS: Without rales or wheezes. Decreased breath sounds noted at the bases. CARDIAC: S1 and S2 are normal without S3. Jugular venous pressure cannot be assessed. ABDOMEN: Soft and nontender. Bowel sounds are present. EXTREMITIES: Significant for 1 to 2+ edema of the lower extremities with recent surgery of the left heel, which is covered with bandages. LABORATORY AND DIAGNOSTIC DATA: Laboratory data reviewed. IMPRESSION: 1. Hypertension. 2. Diabetes. 3. Renal failure. 4. Congestive heart failure. 5. Peripheral vascular disease. 6. Nonhealing ulcer of the left heel status post debridement with osteomyelitis. PLAN: The patient will be a candidate for hyperbaric oxygen therapy in attempt to heal the osteomyelitis of the left heel and to avoid possible amputation. We will recommend 30 sessions of HBO therapy at 2 atmospheres for a total of 2 hours per session to be initiated as soon as possible. The patient is unsure whether he would like to proceed or not and he will think about this option. If the patient agrees, we will make arrangements to proceed with therapy after patient has been discharged from the hospital. Dr. Velasquez, thank you for asking me to participate in the care of this patient and I will be happy to follow with you as necessary. Mir Man M.D. DR: MARIA INES JOB#: [id number] CC: Mir Man M.D.; Fax#: [phone] Raymundo Velasquez D.P.M. ; Fax#: [phone]; Hyperbaric Oxygen Therapy Department
[2017-10-25] MEDS: Dyna-Hex 2% Top Sol 2oz TOPIC SCH (21:29)
[2017-10-26] VITALS: BP 135/65
[2017-10-26] MEDS: oxyCODONE 5mg IR tab ORAL PRN ×2 (00:52→15:42)
[2017-10-26 04:00] VITALS: BP 119/60
[2017-10-26] MEDS: oxyCONTIN 10mg tab ORAL SCH ×3 (05:23→21:47)
[2017-10-26] MEDS: NovoLOG Insulin Flexpen SUBQ SCH ×4 (05:32→21:49)
[2017-10-26 07:05] LABS: BASOPHILS % (AUTO) 1.1 % (0.0-2.0); EOSINOPHILS % (AUTO) 6.3 % (0.0-3.0); HEMATOCRIT 29.3 % (42.0-52.0); HEMOGLOBIN 9.4 G/DL (14.2-18.0); LYMPHOCYTES % (AUTO) 21.6 % (20.0-45.0); MEAN CORPUSCULAR VOLUME 80 FL (80-99); MONOCYTES % (AUTO) 3.5 % (1.0-10.0); NEUTROPHILS % (AUTO) 67.5 % (45.0-75.0); PLATELET COUNT 463 K/UL (150-450); RED BLOOD COUNT 3.67 M/UL (4.70-6.10); RED CELL DISTRIBUTION WIDTH 15.7 % (11.6-14.8); WHITE BLOOD COUNT 9.9 K/UL (4.8-10.8)
[2017-10-26 07:06] LABS: ANION GAP 9 mmol/L (5-15); BLOOD UREA NITROGEN 17 mg/dL (7-18); CALCIUM 8.2 MG/DL (8.5-10.1); CARBON DIOXIDE 27 MMOL/L (21-32); CHLORIDE 102 MMOL/L (98-107); CREATININE 1.6 MG/DL (0.55-1.30); POTASSIUM 3.7 MMOL/L (3.5-5.1); SODIUM 138 MMOL/L (136-145)
[2017-10-26 07:24] LABS: CREATINE KINASE 175 U/L (26-308)
[2017-10-26 08:00] VITALS: BP 123/54
[2017-10-26] MEDS: Fluconazole 100mg tab ORAL SCH (09:00)
[2017-10-26] MEDS: Doxazosin 1mg Tab ORAL SCH ×3 (09:00→18:00)
[2017-10-26] MEDS: Docusate 100mg cap ORAL SCH ×3 (09:00→18:00)
[2017-10-26] MEDS: Heparin 5000 units/ml inj SUBQ SCH ×2 (09:00→21:00)
--- NOTE | 2017-10-26 09:27 | General Progress Note ---
Assessment/Plan Assessment/Plan #. Leukocytosis, status post debridement, gram-negative jasmyn infection noted. --> Wbc count has been downtrending and improving --> Remains on meropenem. Monitor closely. --> Infectious Disease Service following. #. Anemia due to underlying chronic disease. --> Continue to closely monitor. Hemoglobin goal is above 7 --> anemia workup reviewed. Iron 9, TIBC 127, B12 1791, Folate 41 --> Hemoglobin has been above goal, no prbc needed. Hemoglobin improved from yesterday. #. Anemia of iron deficiency, potentially secondary to osteomyelitis. --> Monitor closely. Trend cbc. --> On iron supplement #. Anemia due to underlying kidney disease. --> Closely monitor, again improving. #. Thrombocytosis, likely reactive process from underlying anemia, closely monitor for improvement. #. Elevated creatinine, chronic kidney disease. #. Diabetes mellitus, on insulin sliding scale as needed as per primary team. #. Diastolic dysfunction. Subjective Date patient seen: Oct 25, 2017 Constitutional: Denies: no symptoms, chills, diaphoresis, fever, malaise, weakness, other HEENT: Denies: no symptoms, eye pain, blurred vision, tearing, double vision, ear pain, ear discharge, nose pain, nose congestion, throat pain, throat swelling, mouth pain, mouth swelling, other Cardiovascular: Denies: no symptoms, chest pain, edema, irregular heart rate, lightheadedness, palpitations, syncope, other Respiratory: Denies: no symptoms, cough, orthopnea, shortness of breath, SOB with excertion, SOB at rest, sputum, stridor, wheezing, other Gastrointestinal/Abdominal: Denies: no symptoms, abdomen distended, abdominal pain, black stools, tarry stools, blood in stool, constipated, diarrhea, difficulty swallowing, nausea, poor appetite, poor fluid intake, rectal bleeding , vomiting, other Genitourinary: Denies: no symptoms, burning, discharge, frequency, flank pain, hematuria, incontinence, pain, urgency, other Neurologic/Psychiatric: Denies: no symptoms, anxiety, depressed, emotional problems, headache, numbness, paresthesia, pre-existing deficit, seizure, tingling, tremors, weakness, other Hematologic/Lymphatic: Reports: anemia Allergies: Coded Allergies: GABAPENTIN (Verified Allergy, Unknown, 10/11/17) OLIVE OIL (Verified Adverse Reaction, Severe, SPASM IN THE COLON, 01/18/14) PREGABALIN (Verified Adverse Reaction, Intermediate, "hypernervous", ) ACETAMINOPHEN (Verified Adverse Reaction, Mild, IRRITABILITY AND ELEVATED BLOOD PRESSURE, 01/18/14) IBUPROFEN (Verified Adverse Reaction, Mild, IRRITABILITY AND ELEVATED BLOOD PRESSURE, 01/18/14) Uncoded Allergies: SSRI (Allergy, Unknown, 10/11/17) Subjective Confused. Noncompliant. No fever or chills. Objective Last 24 Hour Vital Signs Date Time Temp Pulse Resp B/P (MAP) Pulse Ox O2 Delivery O2 Flow Rate FiO2 10/26/17 04:00 97.3 74 20 119/60 99 97.3 10/26/17 00:00 98.0 74 20 135/65 97 98.0 10/25/17 20:00 98.2 64 20 142/75 96 98.2 10/25/17 16:00 96.8 66 21 154/64 95 96.8 10/25/17 12:00 97.7 79 19 134/56 97 97.7 Intake and Output 10/25/17 10/26/17 19:00 07:00 Intake Total 405 ml Output Total 700 ml Balance 405 ml -700 ml Intake Oral 240 ml IV Total 165 ml Output Urine Total 700 ml # Voids 5 Laboratory Tests 10/26/17 05:15: White Blood Count 9.9, Red Blood Count 3.67L, Hemoglobin 9.4L, Hematocrit 29.3L , Mean Corpuscular Volume 80, Mean Corpuscular Hemoglobin 25.5L, Mean Corpuscular Hemoglobin Concent 32.0, Red Cell Distribution Width 15.7H, Platelet Count 463H, Mean Platelet Volume 5.4L, Neutrophils (%) (Auto) 67.5, Lymphocytes (%) (Auto) 21.6, Monocytes (%) (Auto) 3.5, Eosinophils (%) (Auto) 6.3H, Basophils (%) (Auto) 1.1, Erythrocyte Sedimentation Rate 68H, Sodium Level 138, Potassium Level 3.7, Chloride Level 102, Carbon Dioxide Level 27, Anion Gap 9, Blood Urea Nitrogen 17, Creatinine 1.6H, Estimat Glomerular Filtration Rate , Glucose Level 251H, Calcium Level 8.2L, Total Creatine Kinase 175 Height (Feet): 5 Height (Inches): 8.00 Weight (Pounds): 185 Giovany Wiggins Oct 26, 2017 09:27
[2017-10-26] MEDS: Ascorbic Acid 500mg tab ORAL SCH (10:25)
[2017-10-26] MEDS: Vitamin D 1000 IU Tab ORAL SCH (10:25)
[2017-10-26] MEDS: Tamsulosin 0.4mg cap ORAL SCH ×2 (10:25→18:00)
[2017-10-26] MEDS: Nephrovite tab (Rena-Vite) ORAL SCH (10:25)
[2017-10-26] MEDS: Dakin's 0.125% Soln (Quarter Strength) 16oz TOPIC SCH (10:26)
[2017-10-26] MEDS: Analgesic Balm 15gm TOPIC SCH ×2 (10:32→18:42)
[2017-10-26 12:00] VITALS: BP 123/54
--- NOTE | 2017-10-26 12:54 | Nephrology Progress Note ---
Assessment/Plan Problem List: (1) HTN (hypertension) (2) Diabetes mellitus (3) Ulcer of left heel (4) Renal insufficiency Assessment Foot ulcer, left left leg cellulitis, left heel ulcer, ? osteo, leukocytosis, lgt Renal insufficiency acute vs chronic Cr lowering now 1.5 Urinary retention: REFUSES NG Anemia UTI Plan Avoid Nephrotoxics Keep BP in check monitor renal parameters Anemia henry urine studies flomax start cardura Kidney FAMILIA Unremarkable kidneys. Negative for hydronephrosis Note inability of the patient to void with a bladder volume of 337 mL 2D echo :Left ventricular ejection fraction estimated to be 55-60%. No evidence of left ventricular hypertrophy. Subjective ROS Limited/Unobtainable: No Constitutional: Reports: malaise Objective Objective Last 24 Hour Vital Signs Date Time Temp Pulse Resp B/P (MAP) Pulse Ox O2 Delivery O2 Flow Rate FiO2 10/26/17 09:00 74 119/60 10/26/17 08:00 98.1 63 18 123/54 98 Room Air 98.1 10/26/17 04:00 97.3 74 20 119/60 99 97.3 10/26/17 00:00 98.0 74 20 135/65 97 98.0 10/25/17 20:00 98.2 64 20 142/75 96 98.2 10/25/17 16:00 96.8 66 21 154/64 95 96.8 Intake and Output 10/25/17 10/26/17 19:00 07:00 Intake Total 405 ml Output Total 700 ml Balance 405 ml -700 ml Intake Oral 240 ml IV Total 165 ml Output Urine Total 700 ml # Voids 5 Laboratory Tests 10/26/17 05:15: White Blood Count 9.9, Red Blood Count 3.67L, Hemoglobin 9.4L, Hematocrit 29.3L , Mean Corpuscular Volume 80, Mean Corpuscular Hemoglobin 25.5L, Mean Corpuscular Hemoglobin Concent 32.0, Red Cell Distribution Width 15.7H, Platelet Count 463H, Mean Platelet Volume 5.4L, Neutrophils (%) (Auto) 67.5, Lymphocytes (%) (Auto) 21.6, Monocytes (%) (Auto) 3.5, Eosinophils (%) (Auto) 6.3H, Basophils (%) (Auto) 1.1, Erythrocyte Sedimentation Rate 68H, Sodium Level 138, Potassium Level 3.7, Chloride Level 102, Carbon Dioxide Level 27, Anion Gap 9, Blood Urea Nitrogen 17, Creatinine 1.6H, Estimat Glomerular Filtration Rate , Glucose Level 251H, Calcium Level 8.2L, Total Creatine Kinase 175 Height (Feet): 5 Height (Inches): 8.00 Weight (Pounds): 185 General Appearance: no apparent distress Objective no other changes IHSAN REGALADO Oct 26, 2017 12:54
--- NOTE | 2017-10-26 14:01 | Infectious Diseases Prog Note ---
Assessment/Plan Assessment/Plan ASSESSMENT AND PLAN: 1. bacteroides bacteremia, proteus/klebsiella/vre left heel/foot wound infection and osteomyelitis on MRI, sepsis, leukocytosis, urine culture with yeast - 10-20,000 - s/p debridement, debridement as needed per podiatry - some left leg redness persists but better with less warmth - leukocytosis resolved, continue to monitor wbc - continue wound care per podiatry - f/u labs, surveillance blood cultures negative - invanz/daptomycin iv for 6 weeks course of abx, meropenem started on 10/14 - vre colonized - urine culture with persistent yeast and sig + ua - diflucan for 5 days started today - day # 12/19 - d/w Dr. Prieto 2. Elevated creatinine, chronic renal failure, acute kidney injury. 3. Anemia. 4. The patient with history of diabetes. 5. Hypertension. 6. Blood sugar and blood pressure treatment per primary. 7. Benign prostatic hypertrophy. 8. Atherosclerotic cardiovascular disease. 9. Chronic diastolic congestive heart failure. 10. Anemia. 11. Dizziness, headaches, weakness, and fatigue. 12. Allergies, acetaminophen, gabapentin, ibuprofen, Elavil, pregabalin, and selective serotonin reuptake inhibitors. 13. Social history negative. 14. Family history noncontributory. 15. MAR was noted. 16. Case discussed with RN. 17. Continue treatment per primary consultants. 18. Orders were entered. 19. Notes and records noted. Subjective Constitutional: Reports: fatigue, Denies: fever, chills Respiratory: Denies: shortness of breath Cardiovascular: Denies: chest pain Gastrointestinal/Abdominal: Denies: nausea, vomiting, diarrhea Genitourinary: Denies: dysuria, hematuria Neurologic: Denies: headache Psychiatric: Denies: depression Skin: Denies: rash Hematologic: Denies: bleeding Musculoskeletal: Reports: pain - leg pain controlled Allergies: Coded Allergies: GABAPENTIN (Verified Allergy, Unknown, 10/11/17) OLIVE OIL (Verified Adverse Reaction, Severe, SPASM IN THE COLON, 01/18/14) PREGABALIN (Verified Adverse Reaction, Intermediate, "hypernervous", ) ACETAMINOPHEN (Verified Adverse Reaction, Mild, IRRITABILITY AND ELEVATED BLOOD PRESSURE, 01/18/14) IBUPROFEN (Verified Adverse Reaction, Mild, IRRITABILITY AND ELEVATED BLOOD PRESSURE, 01/18/14) Uncoded Allergies: SSRI (Allergy, Unknown, 10/11/17) Objective Vital Signs Last 24 Hour Vital Signs Date Time Temp Pulse Resp B/P (MAP) Pulse Ox O2 Delivery O2 Flow Rate FiO2 10/26/17 12:00 98.1 68 14 123/54 98 Room Air 98.1 10/26/17 09:00 74 119/60 10/26/17 08:00 98.1 63 18 123/54 98 Room Air 98.1 10/26/17 04:00 97.3 74 20 119/60 99 97.3 10/26/17 00:00 98.0 74 20 135/65 97 98.0 10/25/17 20:00 98.2 64 20 142/75 96 98.2 10/25/17 16:00 96.8 66 21 154/64 95 96.8 Height (Feet): 5 Height (Inches): 8.00 Weight (Pounds): 185 General Appearance: no acute distress HEENT: normocephalic, atraumatic, anicteric, mucous membranes moist Respiratory/Chest: lungs clear, normal breath sounds, no respiratory distress, no accessory muscle use Cardiovascular: normal rate, regular rhythm, no gallop/murmur, no JVD Abdomen: normal bowel sounds, soft, non tender, no organomegaly, non distended Genitourinary: other - no connolly, no cva pain Extremities: no cyanosis, other - wound covered, left leg redness noted but warmth better Skin: no rash Neurologic/Psychiatric: cotton grader II-XII grossly normal, alert, responsive Lymphatic: no neck adenopathy Musculoskeletal: no effusion Objective Chest x-ray - Impression: Bibasilar atelectasis and elevation of the right hemidiaphragm. No acute process otherwise. MRI left foot and ankle - Impression: Positive for progressive osteomyelitis of the posterior calcaneus, since prior study of 08/02/2017 Increasing ulceration of the overlying soft tissues, with possible exposure of the medial aspect of the calcaneal tuberosity. Small amount of gas within the medial soft tissues,. The related open wound or could indicate infection by gas-forming organism Complete tear with retraction of the calcaneal tendon, as described. Fluid in the tibiotalar joint. Probably reactive secondary to the above Diffuse edema of the subcutaneous fat. This could be due to cellulitis or could be related to hemodynamic abnormalities Other findings as noted Findings discussed by phone with Dr. Prieto at the time of interpretation Microbiology Date/Time Source Procedure Growth Status 10/14/17 08:50 Blood Blood Culture - Final NO GROWTH AFTER 5 DAYS Complete 10/11/17 17:00 Nasal Nares MRSA Culture - Final NO METHICILLIN RESISTANT STAPH AUREUS... Complete 10/20/17 01:02 Urine,Clean Catch Urine Culture - Final Jessie Albicans Complete 10/13/17 19:20 Foot Left Gram Stain - Final Complete 10/13/17 19:20 Aerobic Culture - Final Klebsiella Pneumoniae Proteus Mirabilis Enterococcus Faecium - Vre Complete 10/13/17 19:20 Foot Left Anaerobic Culture - Final NO ANAEROBES ISOLATED Complete Laboratory Tests Test 10/26/17 05:15 White Blood Count 9.9 K/UL (4.8-10.8) Red Blood Count 3.67 M/UL (4.70-6.10) L Hemoglobin 9.4 G/DL (14.2-18.0) L Hematocrit 29.3 % (42.0-52.0) L Mean Corpuscular Volume 80 FL (80-99) Mean Corpuscular Hemoglobin 25.5 PG (27.0-31.0) L Mean Corpuscular Hemoglobin Concent 32.0 G/DL (32.0-36.0) Red Cell Distribution Width 15.7 % (11.6-14.8) H Platelet Count 463 K/UL (150-450) H Mean Platelet Volume 5.4 FL (6.5-10.1) L Neutrophils (%) (Auto) 67.5 % (45.0-75.0) Lymphocytes (%) (Auto) 21.6 % (20.0-45.0) Monocytes (%) (Auto) 3.5 % (1.0-10.0) Eosinophils (%) (Auto) 6.3 % (0.0-3.0) H Basophils (%) (Auto) 1.1 % (0.0-2.0) Erythrocyte Sedimentation Rate 68 MM/HR (0-20) H Sodium Level 138 MMOL/L (136-145) Potassium Level 3.7 MMOL/L (3.5-5.1) Chloride Level 102 MMOL/L (98-107) Carbon Dioxide Level 27 MMOL/L (21-32) Anion Gap 9 mmol/L (5-15) Blood Urea Nitrogen 17 mg/dL (7-18) Creatinine 1.6 MG/DL (0.55-1.30) H Estimat Glomerular Filtration Rate mL/min (>60) Glucose Level 251 MG/DL (74-106) H Calcium Level 8.2 MG/DL (8.5-10.1) L Total Creatine Kinase 175 U/L (26-308) Current Medications Medications (Trade) Dose Ordered Sig/Dari Route PRN Reason Start Time Stop Time Status Last Admin Dose Admin Acetaminophen (Tylenol) 650 mg Q4H PRN ORAL Mild Pain (Scale 1-3), fever 10/11/17 16:45 11/10/17 16:44 Amlodipine Besylate (Norvasc) 2.5 mg DAILY ORAL 10/17/17 09:00 11/16/17 08:59 10/20/17 09:22 Ascorbic Acid (Vitamin C) 500 mg DAILY ORAL 10/25/17 09:00 11/24/17 08:59 10/26/17 10:25 Bisacodyl (Dulcolax) 10 mg HSPRN PRN RECTAL Constipation 10/11/17 17:15 11/10/17 17:14 Chlorhexidine Gluconate (Sarah-Hex 2%) 1 applic DAILY@2000 TOPIC 10/17/17 20:00 11/16/17 19:59 10/25/17 21:29 Clotrimazole (Lotrimin) 1 applic EVERY 12 HOURS TOPIC 10/14/17 21:00 11/13/17 20:59 10/26/17 10:26 Daptomycin 670 mg/ Sodium Chloride 110 ml @ 220 mls/hr Q24H IV 10/22/17 17:00 11/20/17 16:59 10/25/17 17:20 Dextrose (Dextrose 50%) STAT PRN IV Hypoglycemia 10/11/17 16:45 11/10/17 16:44 Diphenhydramine HCl (Benadryl) 25 mg Q6H PRN ORAL Itching 10/22/17 23:45 11/21/17 23:44 10/23/17 04:04 Docusate Sodium (Colace) 100 mg TID ORAL 10/12/17 13:30 11/10/17 13:29 10/20/17 18:17 Doxazosin Mesylate (Cardura) 1 mg TID ORAL 10/16/17 13:00 11/15/17 12:59 10/24/17 17:09 Ertapenem 1 gm/ Sodium Chloride 55 ml @ 110 mls/hr Q24H IVPB 10/23/17 16:00 11/20/17 15:59 10/25/17 16:30 Finasteride (Proscar) 5 mg DAILY ORAL 10/12/17 09:00 11/11/17 08:59 10/26/17 10:26 Fluconazole (Diflucan) 100 mg DAILY ORAL 10/23/17 09:00 10/30/17 08:59 10/25/17 09:28 Heparin Sodium (Porcine) (Heparin 5000 units/ml) 5,000 units EVERY 12 HOURS SUBQ 10/11/17 21:00 11/10/17 20:59 10/24/17 22:35 Insulin Aspart (NovoLOG) BEFORE MEALS AND HS SUBQ 10/11/17 21:00 11/10/17 20:59 10/26/17 13:20 Insulin Detemir (Levemir) 12 units Q24H SUBQ 10/16/17 18:00 11/15/17 17:59 10/25/17 17:24 Menthol/Methyl Salicylate (Bengay) 1 applic BID TOPIC 10/18/17 20:00 11/17/17 19:59 10/26/17 10:32 Mirtazapine (Remeron) 15 mg BEDTIME ORAL 10/11/17 21:00 11/10/17 20:59 10/24/17 22:34 Ondansetron HCl (Zofran) 4 mg Q6H PRN IVP Nausea & Vomiting 10/11/17 16:45 11/10/17 16:44 Oxycodone HCl (OxyCONTIN) 10 mg Q8HR ORAL 10/25/17 14:00 11/01/17 13:59 10/26/17 05:23 Oxycodone HCl (Roxicodone) 5 mg Q4H PRN ORAL Moderate Pain (Pain Scale 4-6) 10/25/17 10:30 11/01/17 10:29 Oxycodone HCl (Roxicodone) 10 mg Q4H PRN ORAL Severe Pain (Pain Scale 7-10) 10/25/17 10:30 11/01/17 10:29 10/26/17 00:52 Polyethylene Glycol (Miralax) 17 gm HSPRN PRN ORAL Constipation 10/11/17 16:45 11/10/17 16:44 Risperidone (RisperDAL) 1 mg BEDTIME ORAL 10/14/17 21:00 11/13/17 20:59 10/24/17 22:34 Sodium Hypochlorite (Dakin's Quarter Strength) 1 applic DAILY TOPIC 10/20/17 09:00 11/19/17 08:59 10/26/17 10:26 Tamsulosin HCl (Flomax) 0.4 mg BID ORAL 10/12/17 13:30 11/10/17 13:29 10/26/17 10:25 Vitamin B Complex/ Vit C/Folic Acid (Nephrovite) 1 tab DAILY ORAL 10/12/17 09:00 11/11/17 08:59 10/26/17 10:25 Vitamin D (Vitamin D) 2,000 intlu DAILY ORAL 10/22/17 09:00 11/21/17 08:59 10/26/17 10:25 LARON HERNANDEZ Oct 26, 2017 14:01
[2017-10-26 16:00] VITALS: BP 140/55
--- NOTE | 2017-10-26 17:09 | Cardiology Report ---
APPROVED REPORT EKG Measurement Heart [id number] CT 144P44 [id number] Normal sinus rhythm Anteroseptal infarct, age undetermined Abnormal ECG
[2017-10-26] MEDS: Ertapenem 1 GM in NS 55 ML IVPB SCH (17:15)
[2017-10-26] MEDS: DAPTOMYCIN IV SCH (18:36)
[2017-10-26] MEDS: NS IV SCH (18:36)
[2017-10-26] MEDS: Levemir Flexpen SUBQ SCH (18:40)
[2017-10-26 20:00] VITALS: BP 155/69
[2017-10-26] MEDS: Dyna-Hex 2% Top Sol 2oz TOPIC SCH (20:00)
--- NOTE | 2017-10-26 22:48 | General Progress Note ---
Assessment/Plan Problem List: (1) Dementia with behavioral disturbance Assessment & Plan: Dementia with behavior disturbance and agitation. lacks capacity to make decisions lacks capacity to refuse meds PLAN: 1. Continue risperidone 1 mg at bedtime. 2. Continue Remeron 15 at bedtime. 3. Continue to follow and readjust the medications. ICD Codes: F03.91 - Unspecified dementia with behavioral disturbance SNOMED: 2282504999952 Assessment/Plan Dementia with behavior disturbance and agitation. lacks capacity to make decisions lacks capacity to refuse meds PLAN: 1. Continue risperidone 1 mg at bedtime. 2. Continue Remeron 15 at bedtime. 3. Continue to follow and readjust the medications. Subjective Date patient seen: Oct 25, 2017 Neurologic/Psychiatric: Reports: anxiety, depressed, emotional problems Allergies: Coded Allergies: GABAPENTIN (Verified Allergy, Unknown, 10/11/17) OLIVE OIL (Verified Adverse Reaction, Severe, SPASM IN THE COLON, 01/18/14) PREGABALIN (Verified Adverse Reaction, Intermediate, "hypernervous", ) ACETAMINOPHEN (Verified Adverse Reaction, Mild, IRRITABILITY AND ELEVATED BLOOD PRESSURE, 01/18/14) IBUPROFEN (Verified Adverse Reaction, Mild, IRRITABILITY AND ELEVATED BLOOD PRESSURE, 01/18/14) Uncoded Allergies: SSRI (Allergy, Unknown, 10/11/17) Subjective episodes of confusion. noncompliant again Objective Last 24 Hour Vital Signs Date Time Temp Pulse Resp B/P (MAP) Pulse Ox O2 Delivery O2 Flow Rate FiO2 10/26/17 20:00 98.4 62 20 155/69 98 98.4 10/26/17 16:00 97.5 61 19 140/55 99 Room Air 97.5 10/26/17 14:00 98.1 10/26/17 12:00 98.1 68 14 123/54 98 Room Air 98.1 10/26/17 09:00 74 119/60 10/26/17 08:00 98.1 63 18 123/54 98 Room Air 98.1 10/26/17 04:00 97.3 74 20 119/60 99 97.3 10/26/17 00:00 98.0 74 20 135/65 97 98.0 Intake and Output 10/25/17 10/26/17 19:00 07:00 Intake Total 405 ml Output Total 700 ml Balance 405 ml -700 ml Intake Oral 240 ml IV Total 165 ml Output Urine Total 700 ml # Voids 5 Laboratory Tests 10/26/17 05:15: White Blood Count 9.9, Red Blood Count 3.67L, Hemoglobin 9.4L, Hematocrit 29.3L , Mean Corpuscular Volume 80, Mean Corpuscular Hemoglobin 25.5L, Mean Corpuscular Hemoglobin Concent 32.0, Red Cell Distribution Width 15.7H, Platelet Count 463H, Mean Platelet Volume 5.4L, Neutrophils (%) (Auto) 67.5, Lymphocytes (%) (Auto) 21.6, Monocytes (%) (Auto) 3.5, Eosinophils (%) (Auto) 6.3H, Basophils (%) (Auto) 1.1, Erythrocyte Sedimentation Rate 68H, Sodium Level 138, Potassium Level 3.7, Chloride Level 102, Carbon Dioxide Level 27, Anion Gap 9, Blood Urea Nitrogen 17, Creatinine 1.6H, Estimat Glomerular Filtration Rate , Glucose Level 251H, Calcium Level 8.2L, Total Creatine Kinase 175 Height (Feet): 5 Height (Inches): 8.00 Weight (Pounds): 185 Milton Lancaster M.D. Oct 26, 2017 22:48
--- NOTE | 2017-10-26 22:49 | General Progress Note ---
Assessment/Plan Problem List: (1) Dementia with behavioral disturbance Assessment & Plan: Dementia with behavior disturbance and agitation. lacks capacity to make decisions lacks capacity to refuse meds PLAN: 1. Continue risperidone 1 mg at bedtime. 2. Continue Remeron 15 at bedtime. 3. Continue to follow and readjust the medications. ICD Codes: F03.91 - Unspecified dementia with behavioral disturbance SNOMED: 7861155997651 Assessment/Plan Dementia with behavior disturbance and agitation. lacks capacity to make decisions lacks capacity to refuse meds PLAN: 1. Continue risperidone 1 mg at bedtime. 2. Continue Remeron 15 at bedtime. 3. Continue to follow and readjust the medications. Subjective Date patient seen: Oct 26, 2017 Allergies: Coded Allergies: GABAPENTIN (Verified Allergy, Unknown, 10/11/17) OLIVE OIL (Verified Adverse Reaction, Severe, SPASM IN THE COLON, 01/18/14) PREGABALIN (Verified Adverse Reaction, Intermediate, "hypernervous", ) ACETAMINOPHEN (Verified Adverse Reaction, Mild, IRRITABILITY AND ELEVATED BLOOD PRESSURE, 01/18/14) IBUPROFEN (Verified Adverse Reaction, Mild, IRRITABILITY AND ELEVATED BLOOD PRESSURE, 01/18/14) Uncoded Allergies: SSRI (Allergy, Unknown, 10/11/17) Subjective episodes of confusion. took some meds Objective Last 24 Hour Vital Signs Date Time Temp Pulse Resp B/P (MAP) Pulse Ox O2 Delivery O2 Flow Rate FiO2 10/26/17 20:00 98.4 62 20 155/69 98 98.4 10/26/17 16:00 97.5 61 19 140/55 99 Room Air 97.5 10/26/17 14:00 98.1 10/26/17 12:00 98.1 68 14 123/54 98 Room Air 98.1 10/26/17 09:00 74 119/60 10/26/17 08:00 98.1 63 18 123/54 98 Room Air 98.1 10/26/17 04:00 97.3 74 20 119/60 99 97.3 10/26/17 00:00 98.0 74 20 135/65 97 98.0 Intake and Output 10/25/17 10/26/17 19:00 07:00 Intake Total 405 ml Output Total 700 ml Balance 405 ml -700 ml Intake Oral 240 ml IV Total 165 ml Output Urine Total 700 ml # Voids 5 Laboratory Tests 10/26/17 05:15: White Blood Count 9.9, Red Blood Count 3.67L, Hemoglobin 9.4L, Hematocrit 29.3L , Mean Corpuscular Volume 80, Mean Corpuscular Hemoglobin 25.5L, Mean Corpuscular Hemoglobin Concent 32.0, Red Cell Distribution Width 15.7H, Platelet Count 463H, Mean Platelet Volume 5.4L, Neutrophils (%) (Auto) 67.5, Lymphocytes (%) (Auto) 21.6, Monocytes (%) (Auto) 3.5, Eosinophils (%) (Auto) 6.3H, Basophils (%) (Auto) 1.1, Erythrocyte Sedimentation Rate 68H, Sodium Level 138, Potassium Level 3.7, Chloride Level 102, Carbon Dioxide Level 27, Anion Gap 9, Blood Urea Nitrogen 17, Creatinine 1.6H, Estimat Glomerular Filtration Rate , Glucose Level 251H, Calcium Level 8.2L, Total Creatine Kinase 175 Height (Feet): 5 Height (Inches): 8.00 Weight (Pounds): 185 Milton Lancaster M.D. Oct 26, 2017 22:48
[2017-10-27] VITALS: BP 134/61
[2017-10-27 04:00] VITALS: BP 122/62
[2017-10-27] MEDS: oxyCONTIN 10mg tab ORAL SCH ×3 (06:08→20:52)
[2017-10-27] MEDS: NovoLOG Insulin Flexpen SUBQ SCH ×4 (06:08→20:58)
[2017-10-27 08:00] VITALS: BP 135/55
--- NOTE | 2017-10-27 08:34 | General Progress Note ---
Assessment/Plan Problem List: (1) Gram-negative bacteremia Assessment & Plan: Bacterioides fragilis bacteremia ICD Codes: R78.81 - Bacteremia SNOMED: 107524199377 (2) Sepsis ICD Codes: A41.9 - Sepsis, unspecified organism SNOMED: 47261728 (3) Progressive osteomyelitis of the posterior calcaneus (4) Cellulitis of left lower extremity ICD Codes: L03.116 - Cellulitis of left lower limb SNOMED: 885813948 (5) L heel diabetic ulcer with concern for osteomyelitis (6) Complete tear with retraction of the calcaneal tendon (7) MISHEL on CKD (8) CKD stage 3 (9) DM2 (diabetes mellitus, type 2) Assessment & Plan: A1C 9.9 ICD Codes: E11.9 - Type 2 diabetes mellitus without complications SNOMED: 85554820 (10) HTN (hypertension) ICD Codes: I10 - Essential (primary) hypertension SNOMED: 48297531 (11) Diabetic neuropathy ICD Codes: E11.40 - Type 2 diabetes mellitus with diabetic neuropathy, unspecified SNOMED: 66156649, 205694064, 954005122 (12) Diabetic nephropathy ICD Codes: E11.21 - Type 2 diabetes mellitus with diabetic nephropathy SNOMED: 44871323, 135811827 Qualifiers: Qualified Codes: E11.21 - Type 2 diabetes mellitus with diabetic nephropathy (13) Hyponatremia ICD Codes: E87.1 - Hypo-osmolality and hyponatremia SNOMED: 35403286 (14) Chronic diabetic ulcer right foot (15) Medical non-compliance ICD Codes: Z91.19 - Patient's noncompliance with other medical treatment and regimen SNOMED: 137818877 (16) Acute on chronic diastolic (congestive) heart failure ICD Codes: I50.33 - Acute on chronic diastolic (congestive) heart failure SNOMED: 82046176, 524199745 Status: stable Assessment/Plan Podiatry, ID, renal consulted s/p vanco (10/11-10/16) Cont meropenem (10/14-) Cont daptomycin 8mg/kg for VRE (10/17-) Will need total of 6 weeks of IV abx per ID given osteomyelitis s/p cefepime and flagyl (10/11-10/14) F/u cultures--blood culture showing GNR, wound culture showing Klebsiella and Proteus F/u repeat blood cultures--ngtd PICC line placed 10/17/17 Wound care per podiatry Check MRI L foot--shows progressive osteomyelitis, heel ulceration, soft tissue gas, complete tear of Achilles tendon s/p incision and drainage left foot, excisional debridement to the level of muscle left foot, and partial calcanectomy left foot on 10/13/17 NWB LLE Off wound vac now per podiatry Check renal U/S--shows bladder volume 337mL, refused connolly Flomax 0.4mg BID + finasteride 5mg daily Check TTE--EF 55-60% Lasix 40mg IV for fluid overload Pain control, bowel regimen Supportive care Cont SNF meds but hold lasix, MTF for now ZENIA DC once authorization for SNF obtained DVT Prophylaxis: HSQ Code Status: Full Hospital Classification Declaration: Based on this initial evaluation, and depending on the patient's clinical course, I anticipate that this patient will require hospitalization for 0-1 day for LLE cellulitis, L heel diabetic ulcer w / concern for osteo, and close respiratory/hemodynamic monitoring. Disposition: Once the patient is stable to leave the hospital, I anticipate the patient will likely be discharged to the following environment: back to SNF Discussed with patient/family, nursing staff, SW/CM, podiatry, ID regarding clinical status, treatment course, and disposition planning. D/w ID re abx on d/ c. D/w podiatry re wound vac, d/c plan. D/w CM re dispo Time of note may not reflect time of encounter Subjective Date patient seen: Oct 26, 2017 Time patient seen: 15:00 ROS Limited/Unobtainable: No Constitutional: Reports: no symptoms HEENT: Reports: no symptoms Cardiovascular: Reports: no symptoms Respiratory: Reports: no symptoms Gastrointestinal/Abdominal: Reports: no symptoms Genitourinary: Reports: no symptoms Neurologic/Psychiatric: Reports: no symptoms Endocrine: Reports: no symptoms Hematologic/Lymphatic: Reports: no symptoms Allergies: Coded Allergies: GABAPENTIN (Verified Allergy, Unknown, 10/11/17) OLIVE OIL (Verified Adverse Reaction, Severe, SPASM IN THE COLON, 01/18/14) PREGABALIN (Verified Adverse Reaction, Intermediate, "hypernervous", ) ACETAMINOPHEN (Verified Adverse Reaction, Mild, IRRITABILITY AND ELEVATED BLOOD PRESSURE, 01/18/14) IBUPROFEN (Verified Adverse Reaction, Mild, IRRITABILITY AND ELEVATED BLOOD PRESSURE, 01/18/14) Uncoded Allergies: SSRI (Allergy, Unknown, 10/11/17) All Systems: reviewed and negative except above Subjective No acute o/n events MRI L foot shows progressive osteomyelitis, heel ulcer, soft tissue gas, complete tear of Achilles tendon s/p incision and drainage left foot, excisional debridement to the level of muscle left foot, and partial calcanectomy left foot POD#13 Blood cultures growing Bacterioides fragilis. Repeat blood cultures neg Wound culture showing proteus and klebsiella--now also showing VRE. D/w ID and pt started on daptomycin Awaiting authorization for SNF as pt's Medicare days have run out Pt is noncompliant with meds Pt feels depressed and frustrated that he is still here Pt c/o foot pain. More awake, alert. Denies n/v, d/c, chest pain, SOB, abd pain Objective Last 24 Hour Vital Signs Date Time Temp Pulse Resp B/P (MAP) Pulse Ox O2 Delivery O2 Flow Rate FiO2 10/27/17 04:00 99 Room Air 10/27/17 04:00 98.6 67 20 122/62 99 Room Air 98.6 10/27/17 00:00 97.0 62 20 134/61 95 97.0 10/26/17 20:00 98.4 62 20 155/69 98 98.4 10/26/17 16:00 97.5 61 19 140/55 99 Room Air 97.5 10/26/17 14:00 98.1 10/26/17 12:00 98.1 68 14 123/54 98 Room Air 98.1 10/26/17 09:00 74 119/60 Intake and Output 10/26/17 10/27/17 19:00 07:00 Intake Total 720 ml 240 ml Output Total 400 ml 500 ml Balance 320 ml -260 ml Intake Oral 720 ml 240 ml Output Urine Total 400 ml 500 ml # Voids 3 1 Height (Feet): 5 Height (Inches): 8.00 Weight (Pounds): 185 Objective General: alert, cooperative, no distress, appears stated age Head: normocephalic, without obvious abnormality, atraumatic Eyes: conjunctivae/corneas clear. PERRL, EOM's intact Throat: lips, mucosa, and tongue normal. MMM Neck: supple, symmetrical, trachea midline, and no JVD Lungs: clear to auscultation bilaterally Heart: regular rate and rhythm, S1, S2 normal, no murmur, click, rub or gallop Abdomen: soft, non-tender, non-distended, bowel sounds normal Extremities: extremities normal, atraumatic, no cyanosis, 1-2+ pitting edema BLE Pulses: 2+ and symmetric Skin: Left foot dressing c/d/i, Right foot dressing c/d/i Neurologic: grossly normal, no focal deficits Conner Orozco M.D. Oct 27, 2017 08:34
[2017-10-27] MEDS: Nephrovite tab (Rena-Vite) ORAL SCH (08:37)
[2017-10-27] MEDS: Ascorbic Acid 500mg tab ORAL SCH (08:37)
[2017-10-27] MEDS: Vitamin D 1000 IU Tab ORAL SCH (08:37)
[2017-10-27] MEDS: Doxazosin 1mg Tab ORAL SCH ×3 (08:37→18:00)
[2017-10-27] MEDS: Heparin 5000 units/ml inj SUBQ SCH ×2 (08:39→21:00)
[2017-10-27] MEDS: Dakin's 0.125% Soln (Quarter Strength) 16oz TOPIC SCH (08:39)
[2017-10-27] MEDS: Analgesic Balm 15gm TOPIC SCH ×2 (08:39→18:00)
[2017-10-27] MEDS: Tamsulosin 0.4mg cap ORAL SCH ×2 (08:40→18:00)
[2017-10-27] MEDS: Fluconazole 100mg tab ORAL SCH (08:40)
[2017-10-27] MEDS: Docusate 100mg cap ORAL SCH ×3 (08:40→18:00)
--- NOTE | 2017-10-27 09:44 | General Progress Note ---
Assessment/Plan Assessment/Plan #. Anemia due to underlying chronic disease. --> Continue to closely monitor. Hemoglobin goal is above 7 --> anemia workup reviewed. Iron 9, TIBC 127, B12 1791, Folate 41 --> Hemoglobin has been above goal, no prbc needed. Hemoglobin improved from yesterday. #. Anemia of iron deficiency, potentially secondary to osteomyelitis. --> Monitor closely. Trend cbc. --> On iron supplement #. Anemia due to underlying kidney disease. --> Closely monitor, again improving. #. Leukocytosis, status post debridement, gram-negative jasmyn infection noted. --> Resolved. --> Remains on meropenem. Monitor closely. --> Infectious Disease Service following. #. Thrombocytosis, likely reactive process from underlying anemia, closely monitor for improvement. --> Improved. #. Elevated creatinine, chronic kidney disease. #. Diabetes mellitus, on insulin sliding scale as needed as per primary team. #. Diastolic dysfunction. Subjective Date patient seen: Oct 26, 2017 Constitutional: Denies: no symptoms, chills, diaphoresis, fever, malaise, weakness, other HEENT: Denies: no symptoms, eye pain, blurred vision, tearing, double vision, ear pain, ear discharge, nose pain, nose congestion, throat pain, throat swelling, mouth pain, mouth swelling, other Cardiovascular: Denies: no symptoms, chest pain, edema, irregular heart rate, lightheadedness, palpitations, syncope, other Respiratory: Denies: no symptoms, cough, orthopnea, shortness of breath, SOB with excertion, SOB at rest, sputum, stridor, wheezing, other Gastrointestinal/Abdominal: Denies: no symptoms, abdomen distended, abdominal pain, black stools, tarry stools, blood in stool, constipated, diarrhea, difficulty swallowing, nausea, poor appetite, poor fluid intake, rectal bleeding , vomiting, other Genitourinary: Denies: no symptoms, burning, discharge, frequency, flank pain, hematuria, incontinence, pain, urgency, other Neurologic/Psychiatric: Denies: no symptoms, anxiety, depressed, emotional problems, headache, numbness, paresthesia, pre-existing deficit, seizure, tingling, tremors, weakness, other Hematologic/Lymphatic: Reports: anemia Allergies: Coded Allergies: GABAPENTIN (Verified Allergy, Unknown, 10/11/17) OLIVE OIL (Verified Adverse Reaction, Severe, SPASM IN THE COLON, 01/18/14) PREGABALIN (Verified Adverse Reaction, Intermediate, "hypernervous", ) ACETAMINOPHEN (Verified Adverse Reaction, Mild, IRRITABILITY AND ELEVATED BLOOD PRESSURE, 01/18/14) IBUPROFEN (Verified Adverse Reaction, Mild, IRRITABILITY AND ELEVATED BLOOD PRESSURE, 01/18/14) Uncoded Allergies: SSRI (Allergy, Unknown, 10/11/17) Subjective Confused. Noncompliant at times. No new events. Objective Last 24 Hour Vital Signs Date Time Temp Pulse Resp B/P (MAP) Pulse Ox O2 Delivery O2 Flow Rate FiO2 10/27/17 08:38 79 135/55 10/27/17 08:00 97.8 79 19 135/55 97 Room Air 97.8 10/27/17 04:00 99 Room Air 10/27/17 04:00 98.6 67 20 122/62 99 Room Air 98.6 10/27/17 00:00 97.0 62 20 134/61 95 97.0 10/26/17 20:00 98.4 62 20 155/69 98 98.4 10/26/17 16:00 97.5 61 19 140/55 99 Room Air 97.5 10/26/17 14:00 98.1 10/26/17 12:00 98.1 68 14 123/54 98 Room Air 98.1 Intake and Output 10/26/17 10/27/17 19:00 07:00 Intake Total 720 ml 240 ml Output Total 400 ml 500 ml Balance 320 ml -260 ml Intake Oral 720 ml 240 ml Output Urine Total 400 ml 500 ml # Voids 3 1 Height (Feet): 5 Height (Inches): 8.00 Weight (Pounds): 185 General Appearance: no apparent distress Respiratory/Chest: decreased breath sounds Abdomen: soft Giovany Wiggins Oct 27, 2017 09:44
[2017-10-27 11:45] VITALS: BP 144/70
--- NOTE | 2017-10-27 12:52 | Nephrology Progress Note ---
Assessment/Plan Problem List: (1) HTN (hypertension) (2) Diabetes mellitus (3) Ulcer of left heel (4) Renal insufficiency Assessment Foot ulcer, left left leg cellulitis, left heel ulcer, ? osteo, leukocytosis, lgt Renal insufficiency acute vs chronic Cr lowering now 1.5 Urinary retention: REFUSES NG Anemia UTI Plan no labs today Avoid Nephrotoxics Keep BP in check monitor renal parameters Anemia henry urine studies flomax start cardura Kidney FAMILIA Unremarkable kidneys. Negative for hydronephrosis Note inability of the patient to void with a bladder volume of 337 mL 2D echo :Left ventricular ejection fraction estimated to be 55-60%. No evidence of left ventricular hypertrophy. Subjective ROS Limited/Unobtainable: No Constitutional: Reports: malaise Objective Objective Last 24 Hour Vital Signs Date Time Temp Pulse Resp B/P (MAP) Pulse Ox O2 Delivery O2 Flow Rate FiO2 10/27/17 11:45 97.7 71 17 144/70 96 Room Air 97.7 10/27/17 08:38 79 135/55 10/27/17 08:00 97.8 79 19 135/55 97 Room Air 97.8 10/27/17 04:00 99 Room Air 10/27/17 04:00 98.6 67 20 122/62 99 Room Air 98.6 10/27/17 00:00 97.0 62 20 134/61 95 97.0 10/26/17 20:00 98.4 62 20 155/69 98 98.4 10/26/17 16:00 97.5 61 19 140/55 99 Room Air 97.5 10/26/17 14:00 98.1 Intake and Output 10/26/17 10/27/17 19:00 07:00 Intake Total 720 ml 240 ml Output Total 400 ml 500 ml Balance 320 ml -260 ml Intake Oral 720 ml 240 ml Output Urine Total 400 ml 500 ml # Voids 3 1 Height (Feet): 5 Height (Inches): 8.00 Weight (Pounds): 185 General Appearance: no apparent distress Objective no other changes IHSAN REGALADO Oct 27, 2017 12:52
--- NOTE | 2017-10-27 15:59 | General Progress Note ---
Assessment/Plan Problem List: (1) Gram-negative bacteremia Assessment & Plan: Bacterioides fragilis bacteremia ICD Codes: R78.81 - Bacteremia SNOMED: 535853958059 (2) Sepsis ICD Codes: A41.9 - Sepsis, unspecified organism SNOMED: 97201036 (3) Progressive osteomyelitis of the posterior calcaneus (4) Cellulitis of left lower extremity ICD Codes: L03.116 - Cellulitis of left lower limb SNOMED: 063235245 (5) L heel diabetic ulcer with concern for osteomyelitis (6) Complete tear with retraction of the calcaneal tendon (7) MISHEL on CKD (8) CKD stage 3 (9) DM2 (diabetes mellitus, type 2) Assessment & Plan: A1C 9.9 ICD Codes: E11.9 - Type 2 diabetes mellitus without complications SNOMED: 90839582 (10) HTN (hypertension) ICD Codes: I10 - Essential (primary) hypertension SNOMED: 08715694 (11) Diabetic neuropathy ICD Codes: E11.40 - Type 2 diabetes mellitus with diabetic neuropathy, unspecified SNOMED: 68127533, 848282717, 396939031 (12) Diabetic nephropathy ICD Codes: E11.21 - Type 2 diabetes mellitus with diabetic nephropathy SNOMED: 41682000, 430618129 Qualifiers: Qualified Codes: E11.21 - Type 2 diabetes mellitus with diabetic nephropathy (13) Hyponatremia ICD Codes: E87.1 - Hypo-osmolality and hyponatremia SNOMED: 23890310 (14) Chronic diabetic ulcer right foot (15) Medical non-compliance ICD Codes: Z91.19 - Patient's noncompliance with other medical treatment and regimen SNOMED: 471968352 (16) Acute on chronic diastolic (congestive) heart failure ICD Codes: I50.33 - Acute on chronic diastolic (congestive) heart failure SNOMED: 53280901, 427620260 Status: stable Assessment/Plan Podiatry, ID, renal consulted s/p vanco (10/11-10/16) Cont meropenem (10/14-) Cont daptomycin 8mg/kg for VRE (10/17-) Will need total of 6 weeks of IV abx per ID given osteomyelitis s/p cefepime and flagyl (10/11-10/14) F/u cultures--blood culture showing GNR, wound culture showing Klebsiella and Proteus F/u repeat blood cultures--ngtd PICC line placed 10/17/17 Wound care per podiatry Check MRI L foot--shows progressive osteomyelitis, heel ulceration, soft tissue gas, complete tear of Achilles tendon s/p incision and drainage left foot, excisional debridement to the level of muscle left foot, and partial calcanectomy left foot on 10/13/17 NWB LLE Off wound vac now per podiatry Check renal U/S--shows bladder volume 337mL, refused connolly Flomax 0.4mg BID + finasteride 5mg daily Check TTE--EF 55-60% Lasix 40mg IV PRN for fluid overload/BLE edema Pain control, bowel regimen Supportive care Appreciate psych consult Cont SNF meds ZENIA RODARTE once authorization for SNF obtained Pt unable to go home as he lives alone, 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 Disposition: Once the patient is stable to leave the hospital, I anticipate the patient will likely be discharged to the following environment: back to SNF Discussed with patient/family, nursing staff, SW/CM, podiatry, ID regarding clinical status, treatment course, and disposition planning. D/w ID re abx on d/ c. D/w podiatry re wound care, d/c plan. D/w CM re dispo Time of note may not reflect time of encounter Subjective Date patient seen: Oct 27, 2017 Time patient seen: 15:59 ROS Limited/Unobtainable: No Constitutional: Reports: no symptoms HEENT: Reports: no symptoms Cardiovascular: Reports: no symptoms Respiratory: Reports: no symptoms Gastrointestinal/Abdominal: Reports: no symptoms Genitourinary: Reports: no symptoms Neurologic/Psychiatric: Reports: no symptoms Endocrine: Reports: no symptoms Hematologic/Lymphatic: Reports: no symptoms Allergies: Coded Allergies: GABAPENTIN (Verified Allergy, Unknown, 10/11/17) OLIVE OIL (Verified Adverse Reaction, Severe, SPASM IN THE COLON, 01/18/14) PREGABALIN (Verified Adverse Reaction, Intermediate, "hypernervous", ) ACETAMINOPHEN (Verified Adverse Reaction, Mild, IRRITABILITY AND ELEVATED BLOOD PRESSURE, 01/18/14) IBUPROFEN (Verified Adverse Reaction, Mild, IRRITABILITY AND ELEVATED BLOOD PRESSURE, 01/18/14) Uncoded Allergies: SSRI (Allergy, Unknown, 10/11/17) All Systems: reviewed and negative except above Subjective No acute o/n events MRI L foot shows progressive osteomyelitis, heel ulcer, soft tissue gas, complete tear of Achilles tendon s/p incision and drainage left foot, excisional debridement to the level of muscle left foot, and partial calcanectomy left foot POD#14 Blood cultures growing Bacterioides fragilis. Repeat blood cultures neg Wound culture showing proteus and klebsiella--now also showing VRE. D/w ID and pt now on dapto Awaiting authorization for SNF as pt's Medicare days have run out Pt is noncompliant with meds Pt feels depressed and frustrated that he is still here Pt c/o foot pain. More awake, alert. Denies n/v, d/c, chest pain, SOB, abd pain Objective Last 24 Hour Vital Signs Date Time Temp Pulse Resp B/P (MAP) Pulse Ox O2 Delivery O2 Flow Rate FiO2 10/27/17 11:45 97.7 71 17 144/70 96 Room Air 97.7 10/27/17 08:38 79 135/55 10/27/17 08:00 97.8 79 19 135/55 97 Room Air 97.8 10/27/17 04:00 99 Room Air 10/27/17 04:00 98.6 67 20 122/62 99 Room Air 98.6 10/27/17 00:00 97.0 62 20 134/61 95 97.0 10/26/17 20:00 98.4 62 20 155/69 98 98.4 10/26/17 16:00 97.5 61 19 140/55 99 Room Air 97.5 Intake and Output 10/26/17 10/27/17 19:00 07:00 Intake Total 720 ml 240 ml Output Total 400 ml 500 ml Balance 320 ml -260 ml Intake Oral 720 ml 240 ml Output Urine Total 400 ml 500 ml # Voids 3 1 Height (Feet): 5 Height (Inches): 8.00 Weight (Pounds): 185 Objective General: alert, cooperative, no distress, appears stated age Head: normocephalic, without obvious abnormality, atraumatic Eyes: conjunctivae/corneas clear. PERRL, EOM's intact Throat: lips, mucosa, and tongue normal. MMM Neck: supple, symmetrical, trachea midline, and no JVD Lungs: clear to auscultation bilaterally Heart: regular rate and rhythm, S1, S2 normal, no murmur, click, rub or gallop Abdomen: soft, non-tender, non-distended, bowel sounds normal Extremities: extremities normal, atraumatic, no cyanosis, 1-2+ pitting edema BLE Pulses: 2+ and symmetric Skin: Left foot dressing c/d/i, Right foot dressing c/d/i Neurologic: grossly normal, no focal deficits Conner Orozco M.D. Oct 27, 2017 15:59
[2017-10-27 16:00] VITALS: BP 145/71
[2017-10-27] MEDS: Ertapenem 1 GM in NS 55 ML IVPB SCH (17:04)
[2017-10-27] MEDS: DAPTOMYCIN IV SCH (19:07)
[2017-10-27] MEDS: NS IV SCH (19:07)
[2017-10-27] MEDS: Levemir Flexpen SUBQ SCH (19:08)
[2017-10-27 20:00] VITALS: BP 124/59
[2017-10-27] MEDS: Dyna-Hex 2% Top Sol 2oz TOPIC SCH (20:59)
--- NOTE | 2017-10-27 22:46 | General Progress Note ---
Assessment/Plan Problem List: (1) Dementia with behavioral disturbance Assessment & Plan: Dementia with behavior disturbance and agitation. lacks capacity to make decisions lacks capacity to refuse meds PLAN: 1. Continue risperidone 1 mg at bedtime. 2. Continue Remeron 15 at bedtime. 3. Continue to follow and readjust the medications. ICD Codes: F03.91 - Unspecified dementia with behavioral disturbance SNOMED: 2706903346544 Assessment/Plan Dementia with behavior disturbance and agitation. lacks capacity to make decisions lacks capacity to refuse meds PLAN: 1. Continue risperidone 1 mg at bedtime. 2. Continue Remeron 15 at bedtime. 3. Continue to follow and readjust the medications. Subjective Date patient seen: Oct 27, 2017 Allergies: Coded Allergies: GABAPENTIN (Verified Allergy, Unknown, 10/11/17) OLIVE OIL (Verified Adverse Reaction, Severe, SPASM IN THE COLON, 01/18/14) PREGABALIN (Verified Adverse Reaction, Intermediate, "hypernervous", ) ACETAMINOPHEN (Verified Adverse Reaction, Mild, IRRITABILITY AND ELEVATED BLOOD PRESSURE, 01/18/14) IBUPROFEN (Verified Adverse Reaction, Mild, IRRITABILITY AND ELEVATED BLOOD PRESSURE, 01/18/14) Uncoded Allergies: SSRI (Allergy, Unknown, 10/11/17) Subjective episodes of confusion. doing well Objective Last 24 Hour Vital Signs Date Time Temp Pulse Resp B/P (MAP) Pulse Ox O2 Delivery O2 Flow Rate FiO2 10/27/17 20:00 97.9 67 18 124/59 97 97.9 10/27/17 16:00 97.7 70 20 145/71 95 Room Air 97.7 10/27/17 11:45 97.7 71 17 144/70 96 Room Air 97.7 10/27/17 08:38 79 135/55 10/27/17 08:00 97.8 79 19 135/55 97 Room Air 97.8 10/27/17 04:00 99 Room Air 10/27/17 04:00 98.6 67 20 122/62 99 Room Air 98.6 10/27/17 00:00 97.0 62 20 134/61 95 97.0 Intake and Output 10/26/17 10/27/17 19:00 07:00 Intake Total 720 ml 240 ml Output Total 400 ml 500 ml Balance 320 ml -260 ml Intake Oral 720 ml 240 ml Output Urine Total 400 ml 500 ml # Voids 3 1 Height (Feet): 5 Height (Inches): 8.00 Weight (Pounds): 185 General Appearance: no apparent distress, alert Neurologic: oriented x 3, depressed affect Milton Lancaster M.D. Oct 27, 2017 22:45
[2017-10-28] MEDS: oxyCODONE 5mg IR tab ORAL PRN ×3 (02:33→23:48)
[2017-10-28 04:00] VITALS: BP 127/58
[2017-10-28] MEDS: oxyCONTIN 10mg tab ORAL SCH ×3 (06:13→22:05)
[2017-10-28] MEDS: NovoLOG Insulin Flexpen SUBQ SCH ×4 (06:15→22:09)
[2017-10-28] MEDS: Fluconazole 100mg tab ORAL SCH (09:00)
[2017-10-28] MEDS: Heparin 5000 units/ml inj SUBQ SCH ×2 (09:00→21:00)
[2017-10-28] MEDS: Docusate 100mg cap ORAL SCH ×3 (09:00→17:46)
[2017-10-28] MEDS: Tamsulosin 0.4mg cap ORAL SCH ×2 (10:13→17:47)
[2017-10-28] MEDS: Nephrovite tab (Rena-Vite) ORAL SCH (10:13)
[2017-10-28] MEDS: Vitamin D 1000 IU Tab ORAL SCH (10:14)
[2017-10-28] MEDS: Doxazosin 1mg Tab ORAL SCH ×3 (10:14→17:46)
[2017-10-28] MEDS: Ascorbic Acid 500mg tab ORAL SCH (10:14)
[2017-10-28] MEDS: Analgesic Balm 15gm TOPIC SCH ×2 (10:15→17:47)
[2017-10-28] MEDS: Dakin's 0.125% Soln (Quarter Strength) 16oz TOPIC SCH (10:16)
--- NOTE | 2017-10-28 11:30 | General Progress Note ---
Assessment/Plan Assessment/Plan #. Anemia due to underlying chronic disease. --> Continue to closely monitor and trend. Hemoglobin goal is above 7 --> anemia workup reviewed. Iron 9, TIBC 127, B12 1791, Folate 41 --> Hemoglobin has been above goal, no prbc needed. #. Anemia of iron deficiency, potentially secondary to osteomyelitis. --> Monitor closely. Trend cbc. --> On iron supplement #. Anemia due to underlying kidney disease. --> Closely monitor, again improving. #. Leukocytosis, status post debridement, gram-negative jasmyn infection noted. --> Resolved. --> Remains on meropenem. Monitor closely. --> Infectious Disease Service following. #. Thrombocytosis, likely reactive process from underlying anemia, closely monitor for improvement. --> Resolved. #. Elevated creatinine, chronic kidney disease. #. Diabetes mellitus, on insulin sliding scale as needed as per primary team. #. Diastolic dysfunction. Subjective Date patient seen: Oct 27, 2017 Allergies: Coded Allergies: GABAPENTIN (Verified Allergy, Unknown, 10/11/17) OLIVE OIL (Verified Adverse Reaction, Severe, SPASM IN THE COLON, 01/18/14) PREGABALIN (Verified Adverse Reaction, Intermediate, "hypernervous", ) ACETAMINOPHEN (Verified Adverse Reaction, Mild, IRRITABILITY AND ELEVATED BLOOD PRESSURE, 01/18/14) IBUPROFEN (Verified Adverse Reaction, Mild, IRRITABILITY AND ELEVATED BLOOD PRESSURE, 01/18/14) Uncoded Allergies: SSRI (Allergy, Unknown, 10/11/17) Subjective No fever or chills. No new events overnight. Objective Last 24 Hour Vital Signs Date Time Temp Pulse Resp B/P (MAP) Pulse Ox O2 Delivery O2 Flow Rate FiO2 10/28/17 09:00 66 127/58 10/28/17 04:00 95 Room Air 10/28/17 04:00 98.5 66 21 127/58 95 98.5 10/27/17 20:00 97.9 67 18 124/59 97 97.9 10/27/17 20:00 97 Room Air 10/27/17 16:00 97.7 70 20 145/71 95 Room Air 97.7 10/27/17 11:45 97.7 71 17 144/70 96 Room Air 97.7 Intake and Output 10/27/17 10/28/17 19:00 07:00 Intake Total 650 ml Output Total 400 ml 800 ml Balance 250 ml -800 ml Intake Oral 650 ml Output Urine Total 400 ml 800 ml # Voids 4 Height (Feet): 5 Height (Inches): 8.00 Weight (Pounds): 185 General Appearance: no apparent distress Respiratory/Chest: decreased breath sounds Abdomen: soft Giovany Wiggins MD Oct 28, 2017 11:30
[2017-10-28 12:00] VITALS: BP 101/47
--- NOTE | 2017-10-28 12:35 | Nephrology Progress Note ---
Assessment/Plan Problem List: (1) HTN (hypertension) (2) Diabetes mellitus (3) Ulcer of left heel (4) Renal insufficiency Assessment Foot ulcer, left left leg cellulitis, left heel ulcer, ? osteo, leukocytosis, lgt Renal insufficiency acute vs chronic Cr lowering now 1.5 Urinary retention: REFUSES NG Anemia UTI Plan no labs today Avoid Nephrotoxics Keep BP in check monitor renal parameters Anemia henry urine studies flomax start cardura Kidney FAMILIA Unremarkable kidneys. Negative for hydronephrosis Note inability of the patient to void with a bladder volume of 337 mL 2D echo :Left ventricular ejection fraction estimated to be 55-60%. No evidence of left ventricular hypertrophy. Subjective ROS Limited/Unobtainable: No Objective Objective Last 24 Hour Vital Signs Date Time Temp Pulse Resp B/P (MAP) Pulse Ox O2 Delivery O2 Flow Rate FiO2 10/28/17 09:00 66 127/58 10/28/17 04:00 95 Room Air 10/28/17 04:00 98.5 66 21 127/58 95 98.5 10/27/17 20:00 97.9 67 18 124/59 97 97.9 10/27/17 20:00 97 Room Air 10/27/17 16:00 97.7 70 20 145/71 95 Room Air 97.7 Intake and Output 10/27/17 10/28/17 19:00 07:00 Intake Total 650 ml Output Total 400 ml 800 ml Balance 250 ml -800 ml Intake Oral 650 ml Output Urine Total 400 ml 800 ml # Voids 4 Height (Feet): 5 Height (Inches): 8.00 Weight (Pounds): 185 General Appearance: no apparent distress Objective no other changes IHSAN REGALADO Oct 28, 2017 12:34
--- NOTE | 2017-10-28 13:56 | Infectious Diseases Prog Note ---
Assessment/Plan Assessment/Plan ASSESSMENT AND PLAN: 1. bacteroides bacteremia, proteus/klebsiella/vre left heel/foot wound infection and osteomyelitis on MRI, sepsis, leukocytosis, urine culture with yeast - 10-20,000 - s/p debridement, debridement as needed per podiatry - some left leg redness persists but better with less warmth - leukocytosis resolved, continue to monitor wbc - continue wound care per podiatry - f/u labs, surveillance blood cultures negative - invanz/daptomycin iv for 6 weeks course of abx, meropenem started on 10/14 - vre colonized - urine culture with persistent yeast and sig + ua - diflucan for 5 days started today - day # 02/18 - d/w Dr. Prieto 2. Elevated creatinine, chronic renal failure, acute kidney injury. 3. Anemia. 4. The patient with history of diabetes. 5. Hypertension. 6. Blood sugar and blood pressure treatment per primary. 7. Benign prostatic hypertrophy. 8. Atherosclerotic cardiovascular disease. 9. Chronic diastolic congestive heart failure. 10. Anemia. 11. Dizziness, headaches, weakness, and fatigue. 12. Allergies, acetaminophen, gabapentin, ibuprofen, Elavil, pregabalin, and selective serotonin reuptake inhibitors. 13. Social history negative. 14. Family history noncontributory. 15. MAR was noted. 16. Case discussed with RN. 17. Continue treatment per primary consultants. 18. Orders were entered. 19. Notes and records noted. Subjective Constitutional: Denies: fever HEENT: Denies: congestion Respiratory: Denies: shortness of breath Cardiovascular: Denies: chest pain Gastrointestinal/Abdominal: Denies: nausea, vomiting, diarrhea Genitourinary: Reports: other - no connolly Neurologic: Denies: headache Psychiatric: Denies: depression Skin: Denies: rash Endocrine: Denies: feels warm Musculoskeletal: Denies: pain, stiffness Allergies: Coded Allergies: GABAPENTIN (Verified Allergy, Unknown, 10/11/17) OLIVE OIL (Verified Adverse Reaction, Severe, SPASM IN THE COLON, 01/18/14) PREGABALIN (Verified Adverse Reaction, Intermediate, "hypernervous", ) ACETAMINOPHEN (Verified Adverse Reaction, Mild, IRRITABILITY AND ELEVATED BLOOD PRESSURE, 01/18/14) IBUPROFEN (Verified Adverse Reaction, Mild, IRRITABILITY AND ELEVATED BLOOD PRESSURE, 01/18/14) Uncoded Allergies: SSRI (Allergy, Unknown, 10/11/17) Objective Vital Signs Last 24 Hour Vital Signs Date Time Temp Pulse Resp B/P (MAP) Pulse Ox O2 Delivery O2 Flow Rate FiO2 10/28/17 12:00 98.4 69 21 101/47 97 Room Air 98.4 10/28/17 09:00 66 127/58 10/28/17 04:00 95 Room Air 10/28/17 04:00 98.5 66 21 127/58 95 98.5 10/27/17 20:00 97.9 67 18 124/59 97 97.9 10/27/17 20:00 97 Room Air 10/27/17 16:00 97.7 70 20 145/71 95 Room Air 97.7 Height (Feet): 5 Height (Inches): 8.00 Weight (Pounds): 185 General Appearance: no acute distress HEENT: normocephalic, atraumatic, anicteric, mucous membranes moist Respiratory/Chest: lungs clear, normal breath sounds, no accessory muscle use, respiratory distress Cardiovascular: normal rate, regular rhythm, no gallop/murmur, no JVD Abdomen: normal bowel sounds, soft, non tender, no organomegaly, non distended Genitourinary: other - no connolly, no cva pain Extremities: other - less left leg cellulitis, wound covered Skin: no rash 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 No acute process otherwise. MRI left foot and ankle - Impression: Positive for progressive osteomyelitis of the posterior calcaneus, since prior study of 08/02/2017 Increasing ulceration of the overlying soft tissues, with possible exposure of the medial aspect of the calcaneal tuberosity. Small amount of gas within the medial soft tissues,. The related open wound or could indicate infection by gas-forming organism Complete tear with retraction of the calcaneal tendon, as described. Fluid in the tibiotalar joint. Probably reactive secondary to the above Diffuse edema of the subcutaneous fat. This could be due to cellulitis or could be related to hemodynamic abnormalities Other findings as noted Findings discussed by phone with Dr. Prieto at the time of interpretation Microbiology Date/Time Source Procedure Growth Status 10/14/17 08:50 Blood Blood Culture - Final NO GROWTH AFTER 5 DAYS Complete 10/11/17 17:00 Nasal Nares MRSA Culture - Final NO METHICILLIN RESISTANT STAPH AUREUS... Complete 10/20/17 01:02 Urine,Clean Catch Urine Culture - Final Jessie Albicans Complete 10/13/17 19:20 Foot Left Gram Stain - Final Complete 10/13/17 19:20 Aerobic Culture - Final Klebsiella Pneumoniae Proteus Mirabilis Enterococcus Faecium - Vre Complete 10/13/17 19:20 Foot Left Anaerobic Culture - Final NO ANAEROBES ISOLATED Complete Labs Test 10/26/17 05:15 White Blood Count 9.9 K/UL (4.8-10.8) Red Blood Count 3.67 M/UL (4.70-6.10) Hemoglobin 9.4 G/DL (14.2-18.0) Hematocrit 29.3 % (42.0-52.0) Mean Corpuscular Volume 80 FL (80-99) Mean Corpuscular Hemoglobin 25.5 PG (27.0-31.0) Mean Corpuscular Hemoglobin Concent 32.0 G/DL (32.0-36.0) Red Cell Distribution Width 15.7 % (11.6-14.8) Platelet Count 463 K/UL (150-450) Mean Platelet Volume 5.4 FL (6.5-10.1) Neutrophils (%) (Auto) 67.5 % (45.0-75.0) Lymphocytes (%) (Auto) 21.6 % (20.0-45.0) Monocytes (%) (Auto) 3.5 % (1.0-10.0) Eosinophils (%) (Auto) 6.3 % (0.0-3.0) Basophils (%) (Auto) 1.1 % (0.0-2.0) Erythrocyte Sedimentation Rate 68 MM/HR (0-20) Sodium Level 138 MMOL/L (136-145) Potassium Level 3.7 MMOL/L (3.5-5.1) Chloride Level 102 MMOL/L (98-107) Carbon Dioxide Level 27 MMOL/L (21-32) Anion Gap 9 mmol/L (5-15) Blood Urea Nitrogen 17 mg/dL (7-18) Creatinine 1.6 MG/DL (0.55-1.30) Estimat Glomerular Filtration Rate mL/min (>60) Glucose Level 251 MG/DL (74-106) Calcium Level 8.2 MG/DL (8.5-10.1) Total Creatine Kinase 175 U/L (26-308) Current Medications Medications (Trade) Dose Ordered Sig/Dari Route PRN Reason Start Time Stop Time Status Last Admin Dose Admin Acetaminophen (Tylenol) 650 mg Q4H PRN ORAL Mild Pain (Scale 1-3), fever 10/11/17 16:45 11/10/17 16:44 Amlodipine Besylate (Norvasc) 2.5 mg DAILY ORAL 10/17/17 09:00 11/16/17 08:59 10/20/17 09:22 Ascorbic Acid (Vitamin C) 500 mg DAILY ORAL 10/25/17 09:00 11/24/17 08:59 10/28/17 10:14 Bisacodyl (Dulcolax) 10 mg HSPRN PRN RECTAL Constipation 10/11/17 17:15 11/10/17 17:14 Chlorhexidine Gluconate (Sarah-Hex 2%) 1 applic DAILY@2000 TOPIC 10/17/17 20:00 11/16/17 19:59 10/27/17 20:59 Clotrimazole (Lotrimin) 1 applic EVERY 12 HOURS TOPIC 10/14/17 21:00 11/13/17 20:59 10/28/17 10:15 Daptomycin 670 mg/ Sodium Chloride 110 ml @ 220 mls/hr Q24H IV 10/22/17 17:00 11/20/17 16:59 10/27/17 19:07 Dextrose (Dextrose 50%) STAT PRN IV Hypoglycemia 10/11/17 16:45 11/10/17 16:44 Diphenhydramine HCl (Benadryl) 25 mg Q6H PRN ORAL Itching 10/22/17 23:45 11/21/17 23:44 10/23/17 04:04 Docusate Sodium (Colace) 100 mg TID ORAL 10/12/17 13:30 11/10/17 13:29 10/20/17 18:17 Doxazosin Mesylate (Cardura) 1 mg TID ORAL 10/16/17 13:00 11/15/17 12:59 10/28/17 10:14 Ertapenem 1 gm/ Sodium Chloride 55 ml @ 110 mls/hr Q24H IVPB 10/23/17 16:00 11/20/17 15:59 10/27/17 17:04 Finasteride (Proscar) 5 mg DAILY ORAL 10/12/17 09:00 11/11/17 08:59 10/28/17 10:14 Fluconazole (Diflucan) 100 mg DAILY ORAL 10/23/17 09:00 10/30/17 08:59 10/25/17 09:28 Heparin Sodium (Porcine) (Heparin 5000 units/ml) 5,000 units EVERY 12 HOURS SUBQ 10/11/17 21:00 11/10/17 20:59 10/24/17 22:35 Insulin Aspart (NovoLOG) BEFORE MEALS AND HS SUBQ 10/11/17 21:00 11/10/17 20:59 10/28/17 06:15 Insulin Detemir (Levemir) 12 units Q24H SUBQ 10/16/17 18:00 11/15/17 17:59 10/27/17 19:08 Menthol/Methyl Salicylate (Bengay) 1 applic BID TOPIC 10/18/17 20:00 11/17/17 19:59 10/28/17 10:15 Mirtazapine (Remeron) 15 mg BEDTIME ORAL 10/11/17 21:00 11/10/17 20:59 10/24/17 22:34 Ondansetron HCl (Zofran) 4 mg Q6H PRN IVP Nausea & Vomiting 10/11/17 16:45 11/10/17 16:44 Oxycodone HCl (OxyCONTIN) 10 mg Q8HR ORAL 10/25/17 14:00 11/01/17 13:59 10/28/17 06:13 Oxycodone HCl (Roxicodone) 5 mg Q4H PRN ORAL Moderate Pain (Pain Scale 4-6) 10/25/17 10:30 11/01/17 10:29 10/28/17 11:20 Oxycodone HCl (Roxicodone) 10 mg Q4H PRN ORAL Severe Pain (Pain Scale 7-10) 10/25/17 10:30 11/01/17 10:29 10/28/17 02:33 Polyethylene Glycol (Miralax) 17 gm HSPRN PRN ORAL Constipation 10/11/17 16:45 11/10/17 16:44 Risperidone (RisperDAL) 1 mg BEDTIME ORAL 10/14/17 21:00 11/13/17 20:59 10/24/17 22:34 Sodium Hypochlorite (Dakin's Quarter Strength) 1 applic DAILY TOPIC 10/20/17 09:00 11/19/17 08:59 10/28/17 10:16 Tamsulosin HCl (Flomax) 0.4 mg BID ORAL 10/12/17 13:30 11/10/17 13:29 10/28/17 10:13 Vitamin B Complex/ Vit C/Folic Acid (Nephrovite) 1 tab DAILY ORAL 10/12/17 09:00 11/11/17 08:59 10/28/17 10:13 Vitamin D (Vitamin D) 2,000 intlu DAILY ORAL 10/22/17 09:00 11/21/17 08:59 10/28/17 10:14 LARON HERNANDEZ Oct 28, 2017 13:55
--- NOTE | 2017-10-28 15:11 | General Progress Note ---
Assessment/Plan Problem List: (1) Gram-negative bacteremia Assessment & Plan: Bacterioides fragilis bacteremia ICD Codes: R78.81 - Bacteremia SNOMED: 227942366202 (2) Sepsis ICD Codes: A41.9 - Sepsis, unspecified organism SNOMED: 85339660 (3) Progressive osteomyelitis of the posterior calcaneus (4) Cellulitis of left lower extremity ICD Codes: L03.116 - Cellulitis of left lower limb SNOMED: 533021939 (5) L heel diabetic ulcer with concern for osteomyelitis (6) Complete tear with retraction of the calcaneal tendon (7) MISHEL on CKD (8) CKD stage 3 (9) DM2 (diabetes mellitus, type 2) Assessment & Plan: A1C 9.9 ICD Codes: E11.9 - Type 2 diabetes mellitus without complications SNOMED: 13988735 (10) HTN (hypertension) ICD Codes: I10 - Essential (primary) hypertension SNOMED: 39350199 (11) Diabetic neuropathy ICD Codes: E11.40 - Type 2 diabetes mellitus with diabetic neuropathy, unspecified SNOMED: 15531425, 183696993, 086763380 (12) Diabetic nephropathy ICD Codes: E11.21 - Type 2 diabetes mellitus with diabetic nephropathy SNOMED: 60422195, 816673995 Qualifiers: Qualified Codes: E11.21 - Type 2 diabetes mellitus with diabetic nephropathy (13) Hyponatremia ICD Codes: E87.1 - Hypo-osmolality and hyponatremia SNOMED: 34505997 (14) Chronic diabetic ulcer right foot (15) Medical non-compliance ICD Codes: Z91.19 - Patient's noncompliance with other medical treatment and regimen SNOMED: 420186767 (16) Acute on chronic diastolic (congestive) heart failure ICD Codes: I50.33 - Acute on chronic diastolic (congestive) heart failure SNOMED: 59621503, 966825437 Status: stable Assessment/Plan Podiatry, ID, renal consulted s/p vanco (10/11-10/16) Cont meropenem (10/14-) Cont daptomycin 8mg/kg for VRE (10/17-) Will need total of 6 weeks of IV abx per ID given osteomyelitis s/p cefepime and flagyl (10/11-10/14) F/u cultures--blood culture showing GNR, wound culture showing Klebsiella and Proteus F/u repeat blood cultures--ngtd PICC line placed 10/17/17 Wound care per podiatry Check MRI L foot--shows progressive osteomyelitis, heel ulceration, soft tissue gas, complete tear of Achilles tendon s/p incision and drainage left foot, excisional debridement to the level of muscle left foot, and partial calcanectomy left foot on 10/13/17 NWB LLE Off wound vac now per podiatry Check renal U/S--shows bladder volume 337mL, refused connolly Flomax 0.4mg BID + finasteride 5mg daily Check TTE--EF 55-60% Lasix 40mg IV PRN for fluid overload/BLE edema Pain control, bowel regimen Supportive care Appreciate psych consult Cont SNF meds ZENIA RODARTE once authorization for SNF obtained Pt unable to go home as he lives alone, 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 Disposition: Once the patient is stable to leave the hospital, I anticipate the patient will likely be discharged to the following environment: back to SNF Discussed with patient/family, nursing staff, SW/CM, podiatry, ID regarding clinical status, treatment course, and disposition planning. D/w ID re abx on d/ c. D/w podiatry re wound care, d/c plan. D/w CM re dispo Time of note may not reflect time of encounter Subjective Date patient seen: Oct 28, 2017 Time patient seen: 15:10 ROS Limited/Unobtainable: No Constitutional: Reports: no symptoms HEENT: Reports: no symptoms Cardiovascular: Reports: no symptoms Respiratory: Reports: no symptoms Gastrointestinal/Abdominal: Reports: no symptoms Genitourinary: Reports: no symptoms Neurologic/Psychiatric: Reports: no symptoms Endocrine: Reports: no symptoms Hematologic/Lymphatic: Reports: no symptoms Allergies: Coded Allergies: GABAPENTIN (Verified Allergy, Unknown, 10/11/17) OLIVE OIL (Verified Adverse Reaction, Severe, SPASM IN THE COLON, 01/18/14) PREGABALIN (Verified Adverse Reaction, Intermediate, "hypernervous", ) ACETAMINOPHEN (Verified Adverse Reaction, Mild, IRRITABILITY AND ELEVATED BLOOD PRESSURE, 01/18/14) IBUPROFEN (Verified Adverse Reaction, Mild, IRRITABILITY AND ELEVATED BLOOD PRESSURE, 01/18/14) Uncoded Allergies: SSRI (Allergy, Unknown, 10/11/17) Subjective No acute o/n events MRI L foot shows progressive osteomyelitis, heel ulcer, soft tissue gas, complete tear of Achilles tendon s/p incision and drainage left foot, excisional debridement to the level of muscle left foot, and partial calcanectomy left foot POD#15 Blood cultures growing Bacterioides fragilis. Repeat blood cultures neg Wound culture showing proteus and klebsiella--now also showing VRE. D/w ID and pt now on dapto Awaiting authorization for SNF as pt's Medicare days have run out Pt is noncompliant with meds Pt feels depressed and frustrated that he is still here Pt c/o foot pain. More awake, alert. Denies n/v, d/c, chest pain, SOB, abd pain Objective Last 24 Hour Vital Signs Date Time Temp Pulse Resp B/P (MAP) Pulse Ox O2 Delivery O2 Flow Rate FiO2 10/28/17 12:00 98.4 69 21 101/47 97 Room Air 98.4 10/28/17 09:00 66 127/58 10/28/17 04:00 95 Room Air 10/28/17 04:00 98.5 66 21 127/58 95 98.5 10/27/17 20:00 97.9 67 18 124/59 97 97.9 10/27/17 20:00 97 Room Air 10/27/17 16:00 97.7 70 20 145/71 95 Room Air 97.7 Intake and Output 10/27/17 10/28/17 19:00 07:00 Intake Total 650 ml Output Total 400 ml 800 ml Balance 250 ml -800 ml Intake Oral 650 ml Output Urine Total 400 ml 800 ml # Voids 4 Height (Feet): 5 Height (Inches): 8.00 Weight (Pounds): 185 Objective General: alert, cooperative, no distress, appears stated age Head: normocephalic, without obvious abnormality, atraumatic Eyes: conjunctivae/corneas clear. PERRL, EOM's intact Throat: lips, mucosa, and tongue normal. MMM Neck: supple, symmetrical, trachea midline, and no JVD Lungs: clear to auscultation bilaterally Heart: regular rate and rhythm, S1, S2 normal, no murmur, click, rub or gallop Abdomen: soft, non-tender, non-distended, bowel sounds normal Extremities: extremities normal, atraumatic, no cyanosis, 1-2+ pitting edema BLE Pulses: 2+ and symmetric Skin: Left foot dressing c/d/i, Right foot dressing c/d/i Neurologic: grossly normal, no focal deficits Conner Orozco M.D. Oct 28, 2017 15:10
[2017-10-28 16:00] VITALS: BP 97/57
[2017-10-28] MEDS: Ertapenem 1 GM in NS 55 ML IVPB SCH (16:30)
[2017-10-28] MEDS: Levemir Flexpen SUBQ SCH (17:45)
[2017-10-28] MEDS: DAPTOMYCIN IV SCH (17:46)
[2017-10-28] MEDS: NS IV SCH (17:46)
[2017-10-28 20:00] VITALS: BP 122/59
--- NOTE | 2017-10-28 20:46 | General Progress Note ---
Assessment/Plan Problem List: (1) Dementia with behavioral disturbance Assessment & Plan: Dementia with behavior disturbance and agitation. lacks capacity to make decisions lacks capacity to refuse meds PLAN: 1. Continue risperidone 1 mg at bedtime. 2. Continue Remeron 15 at bedtime. 3. Continue to follow and readjust the medications. ICD Codes: F03.91 - Unspecified dementia with behavioral disturbance SNOMED: 4705399638039 Status: stable, progressing Assessment/Plan Dementia with behavior disturbance and agitation. lacks capacity to make decisions lacks capacity to refuse meds PLAN: 1. Continue risperidone 1 mg at bedtime. 2. Continue Remeron 15 at bedtime. 3. Continue to follow and readjust the medications. Subjective Date patient seen: Oct 28, 2017 Neurologic/Psychiatric: Reports: anxiety, depressed Allergies: Coded Allergies: GABAPENTIN (Verified Allergy, Unknown, 10/11/17) OLIVE OIL (Verified Adverse Reaction, Severe, SPASM IN THE COLON, 01/18/14) PREGABALIN (Verified Adverse Reaction, Intermediate, "hypernervous", ) ACETAMINOPHEN (Verified Adverse Reaction, Mild, IRRITABILITY AND ELEVATED BLOOD PRESSURE, 01/18/14) IBUPROFEN (Verified Adverse Reaction, Mild, IRRITABILITY AND ELEVATED BLOOD PRESSURE, 01/18/14) Uncoded Allergies: SSRI (Allergy, Unknown, 10/11/17) Subjective episodes of confusion. doing well refuses to go home. the pt is anxious the pt wants placement the pt took meds today Objective Last 24 Hour Vital Signs Date Time Temp Pulse Resp B/P (MAP) Pulse Ox O2 Delivery O2 Flow Rate FiO2 10/28/17 16:00 98.2 64 19 97/57 98 Room Air 98.2 10/28/17 12:00 98.4 69 21 101/47 97 Room Air 98.4 10/28/17 09:00 66 127/58 10/28/17 04:00 95 Room Air 10/28/17 04:00 98.5 66 21 127/58 95 98.5 Intake and Output 10/27/17 10/28/17 19:00 07:00 Intake Total 650 ml Output Total 400 ml 800 ml Balance 250 ml -800 ml Intake Oral 650 ml Output Urine Total 400 ml 800 ml # Voids 4 Height (Feet): 5 Height (Inches): 8.00 Weight (Pounds): 185 General Appearance: no apparent distress, alert Milton Lancaster M.D. Oct 28, 2017 20:46
[2017-10-28] MEDS: Dyna-Hex 2% Top Sol 2oz TOPIC SCH (22:12)
[2017-10-29] VITALS: BP 117/51
[2017-10-29 04:00] VITALS: BP 112/57
[2017-10-29] MEDS: oxyCONTIN 10mg tab ORAL SCH ×3 (06:17→21:56)
[2017-10-29] MEDS: NovoLOG Insulin Flexpen SUBQ SCH ×4 (06:25→21:00)
[2017-10-29 08:00] VITALS: BP 119/53
[2017-10-29] MEDS: Tamsulosin 0.4mg cap ORAL SCH ×2 (09:00→18:00)
[2017-10-29] MEDS: Analgesic Balm 15gm TOPIC SCH ×2 (09:00→18:09)
[2017-10-29] MEDS: Nephrovite tab (Rena-Vite) ORAL SCH (09:00)
[2017-10-29] MEDS: Docusate 100mg cap ORAL SCH ×3 (09:00→18:00)
[2017-10-29] MEDS: Heparin 5000 units/ml inj SUBQ SCH ×2 (09:00→21:00)
[2017-10-29] MEDS: Dakin's 0.125% Soln (Quarter Strength) 16oz TOPIC SCH (09:00)
[2017-10-29] MEDS: Vitamin D 1000 IU Tab ORAL SCH (10:52)
[2017-10-29] MEDS: Ascorbic Acid 500mg tab ORAL SCH (10:52)
[2017-10-29] MEDS: Fluconazole 100mg tab ORAL SCH (10:52)
[2017-10-29] MEDS: Doxazosin 1mg Tab ORAL SCH ×3 (10:52→18:09)
[2017-10-29] MEDS: oxyCODONE 5mg IR tab ORAL PRN (11:11)
--- NOTE | 2017-10-29 11:26 | General Progress Note ---
Assessment/Plan Assessment/Plan #. Anemia due to underlying chronic disease. --> Continue to closely monitor and trend. Hemoglobin goal is above 7 --> anemia workup reviewed. Iron 9, TIBC 127, B12 1791, Folate 41 --> Hemoglobin has been above goal, no prbc needed. #. Anemia of iron deficiency, potentially secondary to osteomyelitis. --> Monitor closely. Trend cbc. --> On iron supplement #. Anemia due to underlying kidney disease. --> Closely monitor, again improving. #. Leukocytosis, status post debridement, gram-negative jasmyn infection noted. --> Resolved. --> Remains on meropenem. Monitor closely. --> Infectious Disease Service following. #. Thrombocytosis, likely reactive process from underlying anemia, closely monitor for improvement. --> Resolved. #. Elevated creatinine, chronic kidney disease. #. Diabetes mellitus, on insulin sliding scale as needed as per primary team. #. Diastolic dysfunction. DC planning for SNF Subjective Date patient seen: Oct 28, 2017 Constitutional: Denies: no symptoms, chills, diaphoresis, fever, malaise, weakness, other HEENT: Denies: no symptoms, eye pain, blurred vision, tearing, double vision, ear pain, ear discharge, nose pain, nose congestion, throat pain, throat swelling, mouth pain, mouth swelling, other Cardiovascular: Denies: no symptoms, chest pain, edema, irregular heart rate, lightheadedness, palpitations, syncope, other Respiratory: Denies: no symptoms, cough, orthopnea, shortness of breath, SOB with excertion, SOB at rest, sputum, stridor, wheezing, other Gastrointestinal/Abdominal: Denies: no symptoms, abdomen distended, abdominal pain, black stools, tarry stools, blood in stool, constipated, diarrhea, difficulty swallowing, nausea, poor appetite, poor fluid intake, rectal bleeding , vomiting, other Genitourinary: Denies: no symptoms, burning, discharge, frequency, flank pain, hematuria, incontinence, pain, urgency, other Neurologic/Psychiatric: Denies: no symptoms, anxiety, depressed, emotional problems, headache, numbness, paresthesia, pre-existing deficit, seizure, tingling, tremors, weakness, other Allergies: Coded Allergies: GABAPENTIN (Verified Allergy, Unknown, 10/11/17) OLIVE OIL (Verified Adverse Reaction, Severe, SPASM IN THE COLON, 01/18/14) PREGABALIN (Verified Adverse Reaction, Intermediate, "hypernervous", ) ACETAMINOPHEN (Verified Adverse Reaction, Mild, IRRITABILITY AND ELEVATED BLOOD PRESSURE, 01/18/14) IBUPROFEN (Verified Adverse Reaction, Mild, IRRITABILITY AND ELEVATED BLOOD PRESSURE, 01/18/14) Uncoded Allergies: SSRI (Allergy, Unknown, 10/11/17) Subjective NAD. H/H stable. Objective Last 24 Hour Vital Signs Date Time Temp Pulse Resp B/P (MAP) Pulse Ox O2 Delivery O2 Flow Rate FiO2 10/29/17 09:00 82 119/53 10/29/17 08:00 98.5 82 20 119/53 93 Room Air 98.5 10/29/17 04:00 97.7 65 20 112/57 93 Room Air 97.7 10/29/17 00:00 97.5 66 20 117/51 98 Room Air 97.5 10/28/17 20:00 97.5 65 20 122/59 96 Room Air 97.5 10/28/17 16:00 98.2 64 19 97/57 98 Room Air 98.2 10/28/17 12:00 98.4 69 21 101/47 97 Room Air 98.4 Intake and Output 10/28/17 10/29/17 19:00 07:00 Intake Total 720 ml Balance 720 ml Intake Oral 480 ml Tube Feeding 240 ml # Voids 6 2 Height (Feet): 5 Height (Inches): 8.00 Weight (Pounds): 185 General Appearance: no apparent distress Respiratory/Chest: decreased breath sounds Abdomen: soft Giovany Wiggins MD Oct 29, 2017 11:26
[2017-10-29 12:00] VITALS: BP 145/82
--- NOTE | 2017-10-29 12:24 | Nephrology Progress Note ---
Assessment/Plan Problem List: (1) HTN (hypertension) (2) Diabetes mellitus (3) Ulcer of left heel (4) Renal insufficiency Assessment Foot ulcer, left left leg cellulitis, left heel ulcer, ? osteo, leukocytosis, lgt Renal insufficiency acute vs chronic Cr lowering now 1.5 Urinary retention: REFUSES NG Anemia UTI Plan no labs today- refuses Avoid Nephrotoxics Keep BP in check monitor renal parameters Anemia henry urine studies flomax start cardura Kidney FAMILIA Unremarkable kidneys. Negative for hydronephrosis Note inability of the patient to void with a bladder volume of 337 mL 2D echo :Left ventricular ejection fraction estimated to be 55-60%. No evidence of left ventricular hypertrophy. Subjective ROS Limited/Unobtainable: No Constitutional: Reports: malaise Objective Objective Last 24 Hour Vital Signs Date Time Temp Pulse Resp B/P (MAP) Pulse Ox O2 Delivery O2 Flow Rate FiO2 10/29/17 09:00 82 119/53 10/29/17 08:00 98.5 82 20 119/53 93 Room Air 98.5 10/29/17 04:00 97.7 65 20 112/57 93 Room Air 97.7 10/29/17 00:00 97.5 66 20 117/51 98 Room Air 97.5 10/28/17 20:00 97.5 65 20 122/59 96 Room Air 97.5 10/28/17 16:00 98.2 64 19 97/57 98 Room Air 98.2 Intake and Output 10/28/17 10/29/17 19:00 07:00 Intake Total 720 ml Balance 720 ml Intake Oral 480 ml Tube Feeding 240 ml # Voids 6 2 Height (Feet): 5 Height (Inches): 8.00 Weight (Pounds): 185 General Appearance: no apparent distress Cardiovascular: normal rate Respiratory/Chest: decreased breath sounds Abdomen: soft Extremities: other - swollen Objective no other changes IHSAN RGEALADO Oct 29, 2017 12:24
[2017-10-29] MEDS ORDERED: Tubing IV Secondary IV ONE (15:10)
--- NOTE | 2017-10-29 15:31 | General Progress Note ---
Assessment/Plan Status: stable Assessment/Plan Problem List: (1) Gram-negative bacteremia Assessment & Plan: Bacterioides fragilis bacteremia ICD Codes: R78.81 - Bacteremia SNOMED: 705156640503 (2) Sepsis ICD Codes: A41.9 - Sepsis, unspecified organism SNOMED: 02301152 (3) Progressive osteomyelitis of the posterior calcaneus (4) Cellulitis of left lower extremity ICD Codes: L03.116 - Cellulitis of left lower limb SNOMED: 847176576 (5) L heel diabetic ulcer with concern for osteomyelitis (6) Complete tear with retraction of the calcaneal tendon (7) MISHEL on CKD (8) CKD stage 3 (9) DM2 (diabetes mellitus, type 2) Assessment & Plan: A1C 9.9 ICD Codes: E11.9 - Type 2 diabetes mellitus without complications SNOMED: 62299625 (10) HTN (hypertension) ICD Codes: I10 - Essential (primary) hypertension SNOMED: 63851816 (11) Diabetic neuropathy ICD Codes: E11.40 - Type 2 diabetes mellitus with diabetic neuropathy, unspecified SNOMED: 48338402, 719540291, 782518635 (12) Diabetic nephropathy ICD Codes: E11.21 - Type 2 diabetes mellitus with diabetic nephropathy SNOMED: 90543854, 821238120 Qualifiers: Qualified Codes: E11.21 - Type 2 diabetes mellitus with diabetic nephropathy (13) Hyponatremia ICD Codes: E87.1 - Hypo-osmolality and hyponatremia SNOMED: 98376192 (14) Chronic diabetic ulcer right foot (15) Medical non-compliance ICD Codes: Z91.19 - Patient's noncompliance with other medical treatment and regimen SNOMED: 641896984 (16) Acute on chronic diastolic (congestive) heart failure ICD Codes: I50.33 - Acute on chronic diastolic (congestive) heart failure SNOMED: 77328892, 093387950 Status: stable Assessment/Plan Podiatry, ID, renal consulted s/p vanco (10/11-10/16) Cont meropenem (10/14-) Cont daptomycin 8mg/kg for VRE (10/17-) Will need total of 6 weeks of IV abx per ID given osteomyelitis s/p cefepime and flagyl (10/11-10/14) F/u cultures--blood culture showing GNR, wound culture showing Klebsiella and Proteus F/u repeat blood cultures--ngtd PICC line placed 10/17/17 Wound care per podiatry Check MRI L foot--shows progressive osteomyelitis, heel ulceration, soft tissue gas, complete tear of Achilles tendon s/p incision and drainage left foot, excisional debridement to the level of muscle left foot, and partial calcanectomy left foot on 10/13/17 NWB LLE Off wound vac now per podiatry Check renal U/S--shows bladder volume 337mL, refused connolly Flomax 0.4mg BID + finasteride 5mg daily Check TTE--EF 55-60% Lasix 40mg IV PRN for fluid overload/BLE edema Pain control, bowel regimen Supportive care Appreciate psych consult Cont SNF ayes [facility] once authorization for SNF obtained Pt unable to go home as he lives alone, 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 Disposition: Once the patient is stable to leave the hospital, I anticipate the patient will likely be discharged to the following environment: back to SNF Discussed with patient/family, nursing staff, SW/CM, podiatry, ID regarding clinical status, treatment course, and disposition planning. D/w ID re abx on d/ c. D/w podiatry re wound care, d/c plan. D/w CM re dispo Time of note may not reflect time of encounter Subjective Date patient seen: Oct 29, 2017 Allergies: Coded Allergies: GABAPENTIN (Verified Allergy, Unknown, 10/11/17) OLIVE OIL (Verified Adverse Reaction, Severe, SPASM IN THE COLON, 01/18/14) PREGABALIN (Verified Adverse Reaction, Intermediate, "hypernervous", ) ACETAMINOPHEN (Verified Adverse Reaction, Mild, IRRITABILITY AND ELEVATED BLOOD PRESSURE, 01/18/14) IBUPROFEN (Verified Adverse Reaction, Mild, IRRITABILITY AND ELEVATED BLOOD PRESSURE, 01/18/14) Uncoded Allergies: SSRI (Allergy, Unknown, 10/11/17) Subjective no acute events refusing labs today snf transfer pending acceptance Constitutional: Reports: no symptoms HEENT: Reports: no symptoms Cardiovascular: Reports: no symptoms Respiratory: Reports: no symptoms Gastrointestinal/Abdominal: Reports: no symptoms Genitourinary: Reports: no symptoms Neurologic/Psychiatric: Reports: no symptoms Endocrine: Reports: no symptoms Hematologic/Lymphatic: Reports: no symptoms Objective Last 24 Hour Vital Signs Date Time Temp Pulse Resp B/P (MAP) Pulse Ox O2 Delivery O2 Flow Rate FiO2 10/29/17 12:00 99.3 80 22 145/82 97 Room Air 99.3 10/29/17 09:00 82 119/53 10/29/17 08:00 98.5 82 20 119/53 93 Room Air 98.5 10/29/17 04:00 97.7 65 20 112/57 93 Room Air 97.7 10/29/17 00:00 97.5 66 20 117/51 98 Room Air 97.5 10/28/17 20:00 97.5 65 20 122/59 96 Room Air 97.5 10/28/17 16:00 98.2 64 19 97/57 98 Room Air 98.2 Intake and Output 10/28/17 10/29/17 19:00 07:00 Intake Total 720 ml Balance 720 ml Intake Oral 480 ml Tube Feeding 240 ml # Voids 6 2 Height (Feet): 5 Height (Inches): 8.00 Weight (Pounds): 185 Objective General: alert, cooperative, no distress, appears stated age Head: normocephalic, without obvious abnormality, atraumatic Eyes: conjunctivae/corneas clear. PERRL, EOM's intact Throat: lips, mucosa, and tongue normal. MMM Neck: supple, symmetrical, trachea midline, and no JVD Lungs: clear to auscultation bilaterally Heart: regular rate and rhythm, S1, S2 normal, no murmur, click, rub or gallop Abdomen: soft, non-tender, non-distended, bowel sounds normal Extremities: extremities normal, atraumatic, no cyanosis, 1-2+ pitting edema BLE Pulses: 2+ and symmetric Skin: Left foot dressing c/d/i, Right foot dressing c/d/i Neurologic: grossly normal, no focal deficits Yimi Rouse MD Oct 29, 2017 15:31
[2017-10-29] MEDS: Ertapenem 1 GM in NS 55 ML IVPB SCH (16:15)
[2017-10-29] MEDS: NS IV SCH (18:09)
[2017-10-29] MEDS: DAPTOMYCIN IV SCH (18:09)
[2017-10-29] MEDS: Levemir Flexpen SUBQ SCH (18:10)
[2017-10-29 20:00] VITALS: BP 113/81
[2017-10-29] MEDS: Dyna-Hex 2% Top Sol 2oz TOPIC SCH (21:26)
[2017-10-30] VITALS (11 sets, daily range): BP systolic 106–134; BP diastolic 43–70
[2017-10-30] MEDS: oxyCONTIN 10mg tab ORAL SCH ×3 (06:00→22:19)
[2017-10-30] MEDS: NovoLOG Insulin Flexpen SUBQ SCH ×4 (06:09→21:00)
[2017-10-30] MEDS: Doxazosin 1mg Tab ORAL SCH ×3 (08:59→17:38)
[2017-10-30] MEDS: Ascorbic Acid 500mg tab ORAL SCH (08:59)
[2017-10-30] MEDS: Vitamin D 1000 IU Tab ORAL SCH (08:59)
[2017-10-30] MEDS: Nephrovite tab (Rena-Vite) ORAL SCH (09:00)
[2017-10-30] MEDS: Tamsulosin 0.4mg cap ORAL SCH ×2 (09:00→17:42)
[2017-10-30] MEDS: Docusate 100mg cap ORAL SCH ×3 (09:00→17:40)
[2017-10-30] MEDS: Dakin's 0.125% Soln (Quarter Strength) 16oz TOPIC SCH (09:00)
[2017-10-30] MEDS: Heparin 5000 units/ml inj SUBQ SCH ×2 (09:00→21:00)
[2017-10-30] MEDS: Analgesic Balm 15gm TOPIC SCH ×2 (09:53→17:41)
[2017-10-30 10:49] LABS: CREATINE KINASE 1398 U/L (26-308)
[2017-10-30] MEDS: oxyCODONE 5mg IR tab ORAL PRN (11:10)
--- NOTE | 2017-10-30 12:33 | General Progress Note ---
Assessment/Plan Assessment/Plan #. Anemia due to underlying chronic disease. --> Continue to closely monitor and trend. Hemoglobin goal is above 7 --> anemia workup reviewed. Iron 9, TIBC 127, B12 1791, Folate 41 --> Hemoglobin has been above goal, no prbc needed. --> Has been refusing blood draws. #. Anemia of iron deficiency, potentially secondary to osteomyelitis. --> Monitor closely. Trend cbc. --> On iron supplement #. Anemia due to underlying kidney disease. --> Closely monitor, again improving. #. Leukocytosis, status post debridement, gram-negative jasmyn infection noted. --> Resolved. --> Remains on meropenem. Monitor closely. --> Infectious Disease Service following. #. Thrombocytosis, likely reactive process from underlying anemia, closely monitor for improvement. --> Resolved. #. Elevated creatinine, chronic kidney disease. #. Diabetes mellitus, on insulin sliding scale as needed as per primary team. #. Diastolic dysfunction. DC planning for SNF. Patient unable to take of self at home. Subjective Date patient seen: Oct 29, 2017 Constitutional: Denies: no symptoms, chills, diaphoresis, fever, malaise, weakness, other HEENT: Denies: no symptoms, eye pain, blurred vision, tearing, double vision, ear pain, ear discharge, nose pain, nose congestion, throat pain, throat swelling, mouth pain, mouth swelling, other Cardiovascular: Denies: no symptoms, chest pain, edema, irregular heart rate, lightheadedness, palpitations, syncope, other Respiratory: Denies: no symptoms, cough, orthopnea, shortness of breath, SOB with excertion, SOB at rest, sputum, stridor, wheezing, other Gastrointestinal/Abdominal: Denies: no symptoms, abdomen distended, abdominal pain, black stools, tarry stools, blood in stool, constipated, diarrhea, difficulty swallowing, nausea, poor appetite, poor fluid intake, rectal bleeding , vomiting, other Genitourinary: Denies: no symptoms, burning, discharge, frequency, flank pain, hematuria, incontinence, pain, urgency, other Neurologic/Psychiatric: Denies: no symptoms, anxiety, depressed, emotional problems, headache, numbness, paresthesia, pre-existing deficit, seizure, tingling, tremors, weakness, other Hematologic/Lymphatic: Reports: anemia Allergies: Coded Allergies: GABAPENTIN (Verified Allergy, Unknown, 10/11/17) OLIVE OIL (Verified Adverse Reaction, Severe, SPASM IN THE COLON, 01/18/14) PREGABALIN (Verified Adverse Reaction, Intermediate, "hypernervous", ) ACETAMINOPHEN (Verified Adverse Reaction, Mild, IRRITABILITY AND ELEVATED BLOOD PRESSURE, 01/18/14) IBUPROFEN (Verified Adverse Reaction, Mild, IRRITABILITY AND ELEVATED BLOOD PRESSURE, 01/18/14) Uncoded Allergies: SSRI (Allergy, Unknown, 10/11/17) Subjective Refusing labs. No new events. Objective Last 24 Hour Vital Signs Date Time Temp Pulse Resp B/P (MAP) Pulse Ox O2 Delivery O2 Flow Rate FiO2 10/30/17 12:00 97.8 72 18 134/62 98 Room Air 97.8 10/30/17 09:00 79 106/62 10/30/17 08:39 97.7 79 18 106/62 95 Room Air 97.7 10/30/17 06:40 98.8 84 18 120/70 96 Room Air 98.8 10/30/17 05:40 98.6 72 18 118/66 95 Room Air 98.6 10/30/17 04:40 Room Air 10/30/17 04:40 98.2 70 19 127/48 95 98.2 10/30/17 03:40 98.4 70 20 125/62 95 Room Air 98.4 10/30/17 02:40 98.8 70 20 121/59 93 Room Air 98.8 10/30/17 02:10 99.4 82 20 113/61 92 99.4 10/30/17 00:00 98.5 70 18 126/43 95 98.5 10/29/17 20:00 98.2 80 18 113/81 96 98.2 Intake and Output 10/29/17 10/30/17 19:00 07:00 Intake Total 740 ml 480 ml Output Total 400 ml 300 ml Balance 340 ml 180 ml Intake Oral 740 ml 480 ml Output Urine Total 400 ml 300 ml # Voids 2 Laboratory Tests 10/30/17 10:00: Total Creatine Kinase 1398H Height (Feet): 5 Height (Inches): 8.00 Weight (Pounds): 185 General Appearance: no apparent distress Respiratory/Chest: decreased breath sounds Abdomen: soft Giovany Wiggins MD Oct 30, 2017 12:33
--- NOTE | 2017-10-30 13:29 | Diagnostic Imaging Report ---
Indication: Pain status post fall Technique: Continuous helical CT scanning of the head was performed utilizing automated exposure control without intravenous contrast material. Axial and coronal reconstructions were obtained. Comparison: None available CT dose: Total DLP 1527.4 mGycm; CTDI vol 70.38 mGy Findings: There is no acute intracranial hemorrhage, mass effect or shift. The ventricles, cisterns and sulci are prominent consistent with atrophy. Periventricular hypoattenuation is seen, a nonspecific finding. Visualized mastoid air cells and paranasal sinuses are unremarkable. No focal lesions of the bony calvarium or soft tissues of the scalp are seen. IMPRESSION: No evidence of acute intracranial hemorrhage, mass effect or mid line shift. Atrophy and nonspecific periventricular hypoattenuation suggestive of chronic ischemic microvascular changes. This corresponds with the statrad preliminary report. The CT scanner at [facility] is accredited by the [employer] and the scans are performed using protocols designed to limit radiation exposure to as low as reasonably achievable to attain images of sufficient resolution adequate for diagnostic evaluation.
[2017-10-30 14:52] LABS: ANION GAP 13 mmol/L (5-15); BLOOD UREA NITROGEN 33 mg/dL (7-18); CALCIUM 8.2 MG/DL (8.5-10.1); CARBON DIOXIDE 21 MMOL/L (21-32); CHLORIDE 101 MMOL/L (98-107); CREATININE 3.1 MG/DL (0.55-1.30); POTASSIUM 4.5 MMOL/L (3.5-5.1); SODIUM 135 MMOL/L (136-145)
[2017-10-30 14:56] LABS: ALANINE AMINOTRANSFERASE 29 U/L (12-78); ALBUMIN 2.3 G/DL (3.4-5.0); ALBUMIN/GLOBULIN RATIO 0.5 (1.0-2.7); ALKALINE PHOSPHATASE 88 U/L (46-116); ASPARTATE AMINO TRANSFERASE 69 U/L (15-37); BILIRUBIN,TOTAL 0.5 MG/DL (0.2-1.0); PHOSPHORUS 4.4 MG/DL (2.5-4.9)
[2017-10-30] MEDS: Ertapenem 1 GM in NS 55 ML IVPB SCH (16:58)
[2017-10-30] MEDS: Levemir Flexpen SUBQ SCH (17:39)
--- NOTE | 2017-10-30 17:47 | Infectious Diseases Prog Note ---
Assessment/Plan Assessment/Plan ASSESSMENT AND PLAN: 1. bacteroides bacteremia, proteus/klebsiella/vre left heel/foot wound infection and osteomyelitis on MRI, sepsis, leukocytosis, ? fungal uti - elevated CK noted, ? secondary to fall vs daptomycin - s/p debridement, debridement as needed per podiatry - some left leg redness persists but better with less warmth - leukocytosis resolved, continue to monitor wbc - continue wound care per podiatry - f/u labs, surveillance blood cultures negative - abx changed to invanz and tygecycline because of elevated ck, may rechallenge with daptomycin at later date - abx started on 10/14, plan on 6 week course - vre colonized - fungal uti s/p diflucan - d/w pharmacy x 3, d/w RN and patient - time spent - 33 minutes 2. Elevated creatinine, chronic renal failure, acute kidney injury, elevated ck , s/p fall, ? rhabdomyolysis 3. Anemia. 4. The patient with history of diabetes. 5. Hypertension. 6. Blood sugar and blood pressure treatment per primary. 7. Benign prostatic hypertrophy. 8. Atherosclerotic cardiovascular disease. 9. Chronic diastolic congestive heart failure. 10. Anemia. 11. Dizziness, headaches, weakness, and fatigue. 12. Allergies, acetaminophen, gabapentin, ibuprofen, Elavil, pregabalin, and selective serotonin reuptake inhibitors. 13. Social history negative. 14. Family history noncontributory. 15. MAR was noted. 16. Case discussed with RN. 17. Continue treatment per primary consultants. 18. Orders were entered. 19. Notes and records noted. Subjective Constitutional: Reports: fatigue - s/p fall early this morning, other, Denies: fever HEENT: Denies: congestion Respiratory: Denies: shortness of breath, productive cough Cardiovascular: Denies: chest pain Gastrointestinal/Abdominal: Denies: nausea, vomiting, diarrhea Genitourinary: Reports: other - no fall, Denies: dysuria, hematuria, frequency Neurologic: Denies: headache Psychiatric: Denies: depression Skin: Denies: rash Hematologic: Denies: bleeding Musculoskeletal: Denies: pain Allergies: Coded Allergies: GABAPENTIN (Verified Allergy, Unknown, 10/11/17) OLIVE OIL (Verified Adverse Reaction, Severe, SPASM IN THE COLON, 01/18/14) PREGABALIN (Verified Adverse Reaction, Intermediate, "hypernervous", ) ACETAMINOPHEN (Verified Adverse Reaction, Mild, IRRITABILITY AND ELEVATED BLOOD PRESSURE, 01/18/14) IBUPROFEN (Verified Adverse Reaction, Mild, IRRITABILITY AND ELEVATED BLOOD PRESSURE, 01/18/14) Uncoded Allergies: SSRI (Allergy, Unknown, 10/11/17) Objective Vital Signs Last 24 Hour Vital Signs Date Time Temp Pulse Resp B/P (MAP) Pulse Ox O2 Delivery O2 Flow Rate FiO2 10/30/17 16:00 98.1 76 18 131/66 99 Room Air 98.1 10/30/17 12:00 97.8 72 18 134/62 98 Room Air 97.8 10/30/17 09:00 79 106/62 10/30/17 08:39 97.7 79 18 106/62 95 Room Air 97.7 10/30/17 06:40 98.8 84 18 120/70 96 Room Air 98.8 10/30/17 05:40 98.6 72 18 118/66 95 Room Air 98.6 10/30/17 04:40 Room Air 10/30/17 04:40 98.2 70 19 127/48 95 98.2 10/30/17 03:40 98.4 70 20 125/62 95 Room Air 98.4 10/30/17 02:40 98.8 70 20 121/59 93 Room Air 98.8 10/30/17 02:10 99.4 82 20 113/61 92 99.4 10/30/17 00:00 98.5 70 18 126/43 95 98.5 10/29/17 20:00 98.2 80 18 113/81 96 98.2 Height (Feet): 5 Height (Inches): 8.00 Weight (Pounds): 185 General Appearance: no acute distress HEENT: normocephalic, atraumatic, anicteric, mucous membranes moist, EOMI, pharynx normal, supple, no JVD Respiratory/Chest: lungs clear, normal breath sounds, no respiratory distress, no accessory muscle use Cardiovascular: normal rate, regular rhythm, no gallop/murmur, no JVD Abdomen: normal bowel sounds, soft, non tender, no organomegaly, non distended Genitourinary: other - no connolly Extremities: no cyanosis, other - less left leg cellulitis, foot covered Skin: no rash 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 No acute process otherwise. MRI left foot and ankle - Impression: Positive for progressive osteomyelitis of the posterior calcaneus, since prior study of 08/02/2017 Increasing ulceration of the overlying soft tissues, with possible exposure of the medial aspect of the calcaneal tuberosity. Small amount of gas within the medial soft tissues,. The related open wound or could indicate infection by gas-forming organism Complete tear with retraction of the calcaneal tendon, as described. Fluid in the tibiotalar joint. Probably reactive secondary to the above Diffuse edema of the subcutaneous fat. This could be due to cellulitis or could be related to hemodynamic abnormalities Other findings as noted Findings discussed by phone with Dr. Prieto at the time of interpretation Microbiology Date/Time Source Procedure Growth Status 10/14/17 08:50 Blood Blood Culture - Final NO GROWTH AFTER 5 DAYS Complete 10/11/17 17:00 Nasal Nares MRSA Culture - Final NO METHICILLIN RESISTANT STAPH AUREUS... Complete 10/20/17 01:02 Urine,Clean Catch Urine Culture - Final Jessie Albicans Complete 10/13/17 19:20 Foot Left Gram Stain - Final Complete 10/13/17 19:20 Aerobic Culture - Final Klebsiella Pneumoniae Proteus Mirabilis Enterococcus Faecium - Vre Complete 10/13/17 19:20 Foot Left Anaerobic Culture - Final NO ANAEROBES ISOLATED Complete Laboratory Tests Test 10/30/17 10:00 Sodium Level 135 MMOL/L (136-145) L Potassium Level 4.5 MMOL/L (3.5-5.1) Chloride Level 101 MMOL/L (98-107) Carbon Dioxide Level 21 MMOL/L (21-32) Anion Gap 13 mmol/L (5-15) Blood Urea Nitrogen 33 mg/dL (7-18) H Creatinine 3.1 MG/DL (0.55-1.30) H Estimat Glomerular Filtration Rate mL/min (>60) Glucose Level 113 MG/DL (74-106) H Calcium Level 8.2 MG/DL (8.5-10.1) L Phosphorus Level 4.4 MG/DL (2.5-4.9) Magnesium Level 1.9 MG/DL (1.8-2.4) Total Bilirubin 0.5 MG/DL (0.2-1.0) Aspartate Amino Transf (AST/SGOT) 69 U/L (15-37) H Alanine Aminotransferase (ALT/SGPT) 29 U/L (12-78) Alkaline Phosphatase 88 U/L (46-116) Total Creatine Kinase 1398 U/L (26-308) H Total Protein 6.9 G/DL (6.4-8.2) Albumin 2.3 G/DL (3.4-5.0) L Globulin 4.6 g/dL Albumin/Globulin Ratio 0.5 (1.0-2.7) L wbc - 9.9 hgb - 9.4 Current Medications Medications (Trade) Dose Ordered Sig/Dari Route PRN Reason Start Time Stop Time Status Last Admin Dose Admin Acetaminophen (Tylenol) 650 mg Q4H PRN ORAL Mild Pain (Scale 1-3), fever 10/11/17 16:45 11/10/17 16:44 Amlodipine Besylate (Norvasc) 2.5 mg DAILY ORAL 10/17/17 09:00 11/16/17 08:59 10/20/17 09:22 Ascorbic Acid (Vitamin C) 500 mg DAILY ORAL 10/25/17 09:00 11/24/17 08:59 10/30/17 08:59 Bisacodyl (Dulcolax) 10 mg HSPRN PRN RECTAL Constipation 10/11/17 17:15 11/10/17 17:14 Chlorhexidine Gluconate (Sarah-Hex 2%) 1 applic DAILY@2000 TOPIC 10/17/17 20:00 11/16/17 19:59 10/29/17 21:26 Clotrimazole (Lotrimin) 1 applic EVERY 12 HOURS TOPIC 10/14/17 21:00 11/13/17 20:59 10/30/17 09:53 Dextrose (Dextrose 50%) STAT PRN IV Hypoglycemia 10/11/17 16:45 11/10/17 16:44 Diphenhydramine HCl (Benadryl) 25 mg Q6H PRN ORAL Itching 10/22/17 23:45 11/21/17 23:44 10/23/17 04:04 Docusate Sodium (Colace) 100 mg TID ORAL 10/12/17 13:30 11/10/17 13:29 10/20/17 18:17 Doxazosin Mesylate (Cardura) 1 mg TID ORAL 10/16/17 13:00 11/15/17 12:59 10/30/17 14:24 Ertapenem 1 gm/ Sodium Chloride 55 ml @ 110 mls/hr Q24H IVPB 10/23/17 16:00 11/20/17 15:59 10/30/17 16:58 Finasteride (Proscar) 5 mg DAILY ORAL 10/12/17 09:00 11/11/17 08:59 10/30/17 08:59 Heparin Sodium (Porcine) (Heparin 5000 units/ml) 5,000 units EVERY 12 HOURS SUBQ 10/11/17 21:00 11/10/17 20:59 10/24/17 22:35 Insulin Aspart (NovoLOG) BEFORE MEALS AND HS SUBQ 10/11/17 21:00 11/10/17 20:59 10/30/17 16:56 Insulin Detemir (Levemir) 12 units Q24H SUBQ 10/16/17 18:00 11/15/17 17:59 10/29/17 18:10 Menthol/Methyl Salicylate (Bengay) 1 applic BID TOPIC 10/18/17 20:00 11/17/17 19:59 10/30/17 09:53 Mirtazapine (Remeron) 15 mg BEDTIME ORAL 10/11/17 21:00 11/10/17 20:59 10/28/17 22:04 Ondansetron HCl (Zofran) 4 mg Q6H PRN IVP Nausea & Vomiting 10/11/17 16:45 11/10/17 16:44 Oxycodone HCl (OxyCONTIN) 10 mg Q8HR ORAL 10/25/17 14:00 11/01/17 13:59 10/30/17 14:02 Oxycodone HCl (Roxicodone) 5 mg Q4H PRN ORAL Moderate Pain (Pain Scale 4-6) 10/25/17 10:30 11/01/17 10:29 10/28/17 11:20 Oxycodone HCl (Roxicodone) 10 mg Q4H PRN ORAL Severe Pain (Pain Scale 7-10) 10/25/17 10:30 11/01/17 10:29 10/29/17 11:11 Polyethylene Glycol (Miralax) 17 gm HSPRN PRN ORAL Constipation 10/11/17 16:45 11/10/17 16:44 Risperidone (RisperDAL) 1 mg BEDTIME ORAL 10/14/17 21:00 11/13/17 20:59 10/24/17 22:34 Sodium Hypochlorite (Dakin's Quarter Strength) 1 applic DAILY TOPIC 10/20/17 09:00 11/19/17 08:59 10/28/17 10:16 Tamsulosin HCl (Flomax) 0.4 mg BID ORAL 10/12/17 13:30 11/10/17 13:29 10/28/17 10:13 Tigecycline 100 mg/Dextrose 110 ml @ 110 mls/hr ONCE ONCE IVPB 10/30/17 20:00 10/30/17 20:59 Tigecycline 50 mg/ Dextrose 110 ml @ 220 mls/hr Q12HR@0800,2000 IVPB 10/31/17 08:00 11/07/17 07:59 Vitamin B Complex/ Vit C/Folic Acid (Nephrovite) 1 tab DAILY ORAL 10/12/17 09:00 11/11/17 08:59 10/28/17 10:13 Vitamin D (Vitamin D) 2,000 intlu DAILY ORAL 10/22/17 09:00 11/21/17 08:59 10/30/17 08:59 LARON HERNANDEZ 18, 2018 17:47
--- NOTE | 2017-10-30 18:02 | Nephrology Progress Note ---
Assessment/Plan Problem List: (1) HTN (hypertension) (2) Diabetes mellitus (3) Ulcer of left heel (4) Renal insufficiency Assessment cr carlos above 3 Foot ulcer, left left leg cellulitis, left heel ulcer, ? osteo, leukocytosis, lgt Renal insufficiency acute vs chronic Cr lowering now 1.5 Urinary retention: REFUSES CONNOLLY Anemia UTI Plan refuses connolly fluid challenge Avoid Nephrotoxics Keep BP in check monitor renal parameters Anemia henry urine studies flomax start cardura Kidney FAMILIA Unremarkable kidneys. Negative for hydronephrosis Note inability of the patient to void with a bladder volume of 337 mL 2D echo :Left ventricular ejection fraction estimated to be 55-60%. No evidence of left ventricular hypertrophy. Subjective ROS Limited/Unobtainable: No Constitutional: Reports: malaise, weakness Objective Objective Last 24 Hour Vital Signs Date Time Temp Pulse Resp B/P (MAP) Pulse Ox O2 Delivery O2 Flow Rate FiO2 10/30/17 16:00 98.1 76 18 131/66 99 Room Air 98.1 10/30/17 12:00 97.8 72 18 134/62 98 Room Air 97.8 10/30/17 09:00 79 106/62 10/30/17 08:39 97.7 79 18 106/62 95 Room Air 97.7 10/30/17 06:40 98.8 84 18 120/70 96 Room Air 98.8 10/30/17 05:40 98.6 72 18 118/66 95 Room Air 98.6 10/30/17 04:40 Room Air 10/30/17 04:40 98.2 70 19 127/48 95 98.2 10/30/17 03:40 98.4 70 20 125/62 95 Room Air 98.4 10/30/17 02:40 98.8 70 20 121/59 93 Room Air 98.8 10/30/17 02:10 99.4 82 20 113/61 92 99.4 10/30/17 00:00 98.5 70 18 126/43 95 98.5 10/29/17 20:00 98.2 80 18 113/81 96 98.2 Intake and Output 10/29/17 10/30/17 19:00 07:00 Intake Total 740 ml 480 ml Output Total 400 ml 300 ml Balance 340 ml 180 ml Intake Oral 740 ml 480 ml Output Urine Total 400 ml 300 ml # Voids 2 Laboratory Tests 10/30/17 10:00: Sodium Level 135L, Potassium Level 4.5, Chloride Level 101, Carbon Dioxide Level 21, Anion Gap 13, Blood Urea Nitrogen 33H, Creatinine 3.1H, Estimat Glomerular Filtration Rate , Glucose Level 113H, Calcium Level 8.2L, Phosphorus Level 4.4, Magnesium Level 1.9, Total Bilirubin 0.5, Aspartate Amino Transf (AST /SGOT) 69H, Alanine Aminotransferase (ALT/SGPT) 29, Alkaline Phosphatase 88, Total Creatine Kinase 1398H, Total Protein 6.9, Albumin 2.3L, Globulin 4.6, Albumin/Globulin Ratio 0.5L Height (Feet): 5 Height (Inches): 8.00 Weight (Pounds): 185 General Appearance: no apparent distress Respiratory/Chest: decreased breath sounds Abdomen: distended Objective no other changes IHSAN REGALADO 18, 2018 18:02
[2017-10-30] MEDS ORDERED: Sodium Chloride 500ML 500 ML IV ONE (18:15)
[2017-10-30] MEDS ORDERED: Albumin Human 5% 500ml IV ONE (18:30)
[2017-10-30] MEDS ORDERED: Lidocaine 1% Plain 30 ml INJ PRN (19:15)
[2017-10-30] MEDS ORDERED: Heparin 2000 units/Ns 1000ml INJ PRN (19:15)
[2017-10-30] MEDS ORDERED: oxyCODONE 5mg IR tab ORAL PRN (19:15)
[2017-10-30] MEDS ORDERED: Tigecycline 100mg in D5W 110ml IVPB ONE (20:00)
--- NOTE | 2017-10-30 20:26 | General Progress Note ---
Assessment/Plan Assessment/Plan Problem List: (1) Gram-negative bacteremia Assessment & Plan: Bacterioides fragilis bacteremia ICD Codes: R78.81 - Bacteremia SNOMED: 661969387312 (2) Sepsis ICD Codes: A41.9 - Sepsis, unspecified organism SNOMED: 95952790 (3) Progressive osteomyelitis of the posterior calcaneus (4) Cellulitis of left lower extremity ICD Codes: L03.116 - Cellulitis of left lower limb SNOMED: 602935025 (5) L heel diabetic ulcer with concern for osteomyelitis (6) Complete tear with retraction of the calcaneal tendon (7) MISHEL on CKD (8) CKD stage 3 (9) DM2 (diabetes mellitus, type 2) Assessment & Plan: A1C 9.9 ICD Codes: E11.9 - Type 2 diabetes mellitus without complications SNOMED: 55528382 (10) HTN (hypertension) ICD Codes: I10 - Essential (primary) hypertension SNOMED: 49614140 (11) Diabetic neuropathy ICD Codes: E11.40 - Type 2 diabetes mellitus with diabetic neuropathy, unspecified SNOMED: 98342491, 528657989, 166353704 (12) Diabetic nephropathy ICD Codes: E11.21 - Type 2 diabetes mellitus with diabetic nephropathy SNOMED: 45544206, 139626015 Qualifiers: Qualified Codes: E11.21 - Type 2 diabetes mellitus with diabetic nephropathy (13) Hyponatremia ICD Codes: E87.1 - Hypo-osmolality and hyponatremia SNOMED: 59190816 (14) Chronic diabetic ulcer right foot (15) Medical non-compliance ICD Codes: Z91.19 - Patient's noncompliance with other medical treatment and regimen SNOMED: 474067951 (16) Acute on chronic diastolic (congestive) heart failure ICD Codes: I50.33 - Acute on chronic diastolic (congestive) heart failure SNOMED: 36911832, 736378698 Status: stable Assessment/Plan Podiatry, ID, renal consulted - appreciate recs CTM renal fxn per nephrology Avoid nefrotox meds Connolly catheter when pt agreeable Decrease prn oxy, concern for oversedation & fall abx per ID Will need total of 6 weeks of IV abx per ID given osteomyelitis F/u cultures--blood culture showing GNR, wound culture showing Klebsiella and Proteus F/u repeat blood cultures--ngtd PICC line placed 10/17/17 Wound care per podiatry Check MRI L foot--shows progressive osteomyelitis, heel ulceration, soft tissue gas, complete tear of Achilles tendon s/p incision and drainage left foot, excisional debridement to the level of muscle left foot, and partial calcanectomy left foot on 10/13/17 NWB LLE Off wound vac now per podiatry Check renal U/S--shows bladder volume 337mL, refused connolly Flomax 0.4mg BID + finasteride 5mg daily Check TTE--EF 55-60% Lasix 40mg IV PRN for fluid overload/BLE edema Pain control, bowel regimen Supportive care Appreciate psych consult Cont SNF meds ZENIA DC once authorization for SNF obtained Pt unable to go home as he lives alone, 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 Disposition: Once the patient is stable to leave the hospital, I anticipate the patient will likely be discharged to the following environment: back to SNF Discussed with patient/family, nursing staff, SW/CM, podiatry, ID regarding clinical status, treatment course, and disposition planning. D/w ID re abx on d/ c. D/w podiatry re wound care, d/c plan. D/w CM re dispo Time of note may not reflect time of encounter Subjective Date patient seen: Oct 30, 2017 Allergies: Coded Allergies: GABAPENTIN (Verified Allergy, Unknown, 10/11/17) OLIVE OIL (Verified Adverse Reaction, Severe, SPASM IN THE COLON, 01/18/14) PREGABALIN (Verified Adverse Reaction, Intermediate, "hypernervous", ) ACETAMINOPHEN (Verified Adverse Reaction, Mild, IRRITABILITY AND ELEVATED BLOOD PRESSURE, 01/18/14) IBUPROFEN (Verified Adverse Reaction, Mild, IRRITABILITY AND ELEVATED BLOOD PRESSURE, 01/18/14) Uncoded Allergies: SSRI (Allergy, Unknown, 10/11/17) Subjective No acute events Cr now 3.1 PVR > 400, refusing Connolly Had fall last night w/ head trauma, no loc, CT B done and no acute changes, neuro exam intact Constitutional: Reports: no symptoms HEENT: Reports: no symptoms Cardiovascular: Reports: no symptoms Respiratory: Reports: no symptoms Gastrointestinal/Abdominal: Reports: no symptoms Genitourinary: Reports: no symptoms Neurologic/Psychiatric: Reports: no symptoms Endocrine: Reports: no symptoms Hematologic/Lymphatic: Reports: no symptoms Objective Last 24 Hour Vital Signs Date Time Temp Pulse Resp B/P (MAP) Pulse Ox O2 Delivery O2 Flow Rate FiO2 10/30/17 16:00 98.1 76 18 131/66 99 Room Air 98.1 10/30/17 12:00 97.8 72 18 134/62 98 Room Air 97.8 10/30/17 09:00 79 106/62 10/30/17 08:39 97.7 79 18 106/62 95 Room Air 97.7 10/30/17 06:40 98.8 84 18 120/70 96 Room Air 98.8 10/30/17 05:40 98.6 72 18 118/66 95 Room Air 98.6 10/30/17 04:40 Room Air 10/30/17 04:40 98.2 70 19 127/48 95 98.2 10/30/17 03:40 98.4 70 20 125/62 95 Room Air 98.4 10/30/17 02:40 98.8 70 20 121/59 93 Room Air 98.8 10/30/17 02:10 99.4 82 20 113/61 92 99.4 10/30/17 00:00 98.5 70 18 126/43 95 98.5 Intake and Output 10/29/17 10/30/17 19:00 07:00 Intake Total 740 ml 480 ml Output Total 400 ml 300 ml Balance 340 ml 180 ml Intake Oral 740 ml 480 ml Output Urine Total 400 ml 300 ml # Voids 2 Laboratory Tests 10/30/17 09:10: C-Reactive Protein, Quantitative 15.9H 10/30/17 10:00: Sodium Level 135L, Potassium Level 4.5, Chloride Level 101, Carbon Dioxide Level 21, Anion Gap 13, Blood Urea Nitrogen 33H, Creatinine 3.1H, Estimat Glomerular Filtration Rate , Glucose Level 113H, Calcium Level 8.2L, Phosphorus Level 4.4, Magnesium Level 1.9, Total Bilirubin 0.5, Aspartate Amino Transf (AST /SGOT) 69H, Alanine Aminotransferase (ALT/SGPT) 29, Alkaline Phosphatase 88, Total Creatine Kinase 1398H, Total Protein 6.9, Albumin 2.3L, Globulin 4.6, Albumin/Globulin Ratio 0.5L Height (Feet): 5 Height (Inches): 8.00 Weight (Pounds): 185 Objective General: alert, cooperative, no distress, appears stated age Head: normocephalic, without obvious abnormality, atraumatic Eyes: conjunctivae/corneas clear. PERRL, EOM's intact Throat: lips, mucosa, and tongue normal. MMM Neck: supple, symmetrical, trachea midline, and no JVD Lungs: clear to auscultation bilaterally Heart: regular rate and rhythm, S1, S2 normal, no murmur, click, rub or gallop Abdomen: soft, non-tender, non-distended, bowel sounds normal Extremities: extremities normal, atraumatic, no cyanosis, 1-2+ pitting edema BLE Pulses: 2+ and symmetric Skin: Left foot dressing c/d/i, Right foot dressing c/d/i Neurologic: grossly normal, no focal deficits Yimi Rouse MD Oct 30, 2017 20:26
[2017-10-30] MEDS ORDERED: Linezolid 600mg/300ml (Pre-Mix) IVPB SCH (21:00)
[2017-10-30] MEDS: Dyna-Hex 2% Top Sol 2oz TOPIC SCH (21:40)
--- NOTE | 2017-10-30 22:16 | Psych Consult Progress Note ---
Psych Consult Progress Note Consult 10/29/17 Vital Signs Last 24 Hour Vital Signs Date Time Temp Pulse Resp B/P (MAP) Pulse Ox O2 Delivery O2 Flow Rate FiO2 10/30/17 20:00 97.0 63 20 123/52 90 97.0 10/30/17 16:00 98.1 76 18 131/66 99 Room Air 98.1 10/30/17 12:00 97.8 72 18 134/62 98 Room Air 97.8 10/30/17 09:00 79 106/62 10/30/17 08:39 97.7 79 18 106/62 95 Room Air 97.7 10/30/17 06:40 98.8 84 18 120/70 96 Room Air 98.8 10/30/17 05:40 98.6 72 18 118/66 95 Room Air 98.6 10/30/17 04:40 Room Air 10/30/17 04:40 98.2 70 19 127/48 95 98.2 10/30/17 03:40 98.4 70 20 125/62 95 Room Air 98.4 10/30/17 02:40 98.8 70 20 121/59 93 Room Air 98.8 10/30/17 02:10 99.4 82 20 113/61 92 99.4 10/30/17 00:00 98.5 70 18 126/43 95 98.5 Labs Laboratory Tests Test 10/30/17 09:10 10/30/17 10:00 C-Reactive Protein, Quantitative 15.9 mg/dL (0.00-0.90) H Sodium Level 135 MMOL/L (136-145) L Potassium Level 4.5 MMOL/L (3.5-5.1) Chloride Level 101 MMOL/L (98-107) Carbon Dioxide Level 21 MMOL/L (21-32) Anion Gap 13 mmol/L (5-15) Blood Urea Nitrogen 33 mg/dL (7-18) H Creatinine 3.1 MG/DL (0.55-1.30) H Estimat Glomerular Filtration Rate mL/min (>60) Glucose Level 113 MG/DL (74-106) H Calcium Level 8.2 MG/DL (8.5-10.1) L Phosphorus Level 4.4 MG/DL (2.5-4.9) Magnesium Level 1.9 MG/DL (1.8-2.4) Total Bilirubin 0.5 MG/DL (0.2-1.0) Aspartate Amino Transf (AST/SGOT) 69 U/L (15-37) H Alanine Aminotransferase (ALT/SGPT) 29 U/L (12-78) Alkaline Phosphatase 88 U/L (46-116) Total Creatine Kinase 1398 U/L (26-308) H Total Protein 6.9 G/DL (6.4-8.2) Albumin 2.3 G/DL (3.4-5.0) L Globulin 4.6 g/dL Albumin/Globulin Ratio 0.5 (1.0-2.7) L Medications Current Medications Medications (Trade) Dose Ordered Sig/Dari Route PRN Reason Start Time Stop Time Status Last Admin Dose Admin Acetaminophen (Tylenol) 650 mg Q4H PRN ORAL Mild Pain (Scale 1-3), fever 10/11/17 16:45 11/10/17 16:44 Amlodipine Besylate (Norvasc) 2.5 mg DAILY ORAL 10/17/17 09:00 11/16/17 08:59 10/20/17 09:22 Ascorbic Acid (Vitamin C) 500 mg DAILY ORAL 10/25/17 09:00 11/24/17 08:59 10/30/17 08:59 Bisacodyl (Dulcolax) 10 mg HSPRN PRN RECTAL Constipation 10/11/17 17:15 11/10/17 17:14 Chlorhexidine Gluconate (Sarah-Hex 2%) 1 applic DAILY@1999 TOPIC 10/31/17 20:00 11/30/17 19:59 Chlorhexidine Gluconate (Sarah-Hex 2%) 1 applic DAILY@1999 TOPIC 10/17/17 20:00 11/16/17 19:59 10/30/17 21:40 Clotrimazole (Lotrimin) 1 applic EVERY 12 HOURS TOPIC 10/14/17 21:00 11/13/17 20:59 10/30/17 21:40 Dextrose (Dextrose 50%) STAT PRN IV Hypoglycemia 10/11/17 16:45 11/10/17 16:44 Diphenhydramine HCl (Benadryl) 25 mg Q6H PRN ORAL Itching 10/22/17 23:45 11/21/17 23:44 10/23/17 04:04 Docusate Sodium (Colace) 100 mg TID ORAL 10/12/17 13:30 11/10/17 13:29 10/20/17 18:17 Doxazosin Mesylate (Cardura) 1 mg TID ORAL 10/16/17 13:00 11/15/17 12:59 10/30/17 17:38 Ertapenem 0.5 gm/ Sodium Chloride 55 ml @ 110 mls/hr Q24H IVPB 10/31/17 16:00 11/05/17 15:59 Finasteride (Proscar) 5 mg DAILY ORAL 10/12/17 09:00 11/11/17 08:59 10/30/17 08:59 Heparin Sodium (Porcine) (Heparin 5000 units/ml) 5,000 units EVERY 12 HOURS SUBQ 10/11/17 21:00 11/10/17 20:59 10/24/17 22:35 Heparin Sodium/ Sodium Chloride (Heparin 2000 units/Ns 1000ml premix) 2,000 unit ONCE PRN INJ PICC LINE INSERTION 10/30/17 19:15 10/31/17 23:59 Insulin Aspart (NovoLOG) BEFORE MEALS AND HS SUBQ 10/11/17 21:00 11/10/17 20:59 10/30/17 16:56 Insulin Detemir (Levemir) 12 units Q24H SUBQ 10/16/17 18:00 11/15/17 17:59 10/30/17 17:39 Lidocaine HCl (Xylocaine 1% 30ml) 30 ml ONCE PRN INJ PICC LINE INSERTION 10/30/17 19:15 10/31/17 23:59 Menthol/Methyl Salicylate (Bengay) 1 applic BID TOPIC 10/18/17 20:00 11/17/17 19:59 10/30/17 17:41 Mirtazapine (Remeron) 15 mg BEDTIME ORAL 10/11/17 21:00 11/10/17 20:59 10/28/17 22:04 Ondansetron HCl (Zofran) 4 mg Q6H PRN IVP Nausea & Vomiting 10/11/17 16:45 11/10/17 16:44 Oxycodone HCl (OxyCONTIN) 10 mg Q8HR ORAL 10/25/17 14:00 11/01/17 13:59 10/30/17 14:02 Oxycodone HCl (Roxicodone) 5 mg Q3H PRN ORAL Moderate to sever pain 10/30/17 19:15 11/01/17 10:29 Polyethylene Glycol (Miralax) 17 gm HSPRN PRN ORAL Constipation 10/11/17 16:45 11/10/17 16:44 Risperidone (RisperDAL) 1 mg BEDTIME ORAL 10/14/17 21:00 11/13/17 20:59 10/24/17 22:34 Sodium Hypochlorite (Dakin's Quarter Strength) 1 applic DAILY TOPIC 10/20/17 09:00 11/19/17 08:59 10/28/17 10:16 Tamsulosin HCl (Flomax) 0.4 mg BID ORAL 10/12/17 13:30 11/10/17 13:29 10/28/17 10:13 Tigecycline 50 mg/ Dextrose 110 ml @ 220 mls/hr Q12HR@0800,2000 IVPB 10/31/17 08:00 11/07/17 07:59 Vitamin B Complex/ Vit C/Folic Acid (Nephrovite) 1 tab DAILY ORAL 10/12/17 09:00 11/11/17 08:59 10/28/17 10:13 Vitamin D (Vitamin D) 2,000 intlu DAILY ORAL 10/22/17 09:00 11/21/17 08:59 10/30/17 08:59 Problems: (1) Dementia with behavioral disturbance Assessment & Plan: Dementia with behavior disturbance and agitation. lacks capacity to make decisions lacks capacity to refuse meds PLAN: 1. Continue risperidone 1 mg at bedtime. 2. Continue Remeron 15 at bedtime. 3. Continue to follow and readjust the medications. Milton Lancaster M.D. Oct 30, 2017 22:16
--- NOTE | 2017-10-30 22:16 | General Progress Note ---
Assessment/Plan Problem List: (1) Dementia with behavioral disturbance Assessment & Plan: Dementia with behavior disturbance and agitation. lacks capacity to make decisions lacks capacity to refuse meds PLAN: 1. Continue risperidone 1 mg at bedtime. 2. Continue Remeron 15 at bedtime. 3. Continue to follow and readjust the medications. ICD Codes: F03.91 - Unspecified dementia with behavioral disturbance SNOMED: 7575430673946 Assessment/Plan Dementia with behavior disturbance and agitation. lacks capacity to make decisions lacks capacity to refuse meds PLAN: 1. Continue risperidone 1 mg at bedtime. 2. Continue Remeron 15 at bedtime. 3. Continue to follow and readjust the medications. Subjective Date patient seen: Oct 30, 2017 Allergies: Coded Allergies: GABAPENTIN (Verified Allergy, Unknown, 10/11/17) OLIVE OIL (Verified Adverse Reaction, Severe, SPASM IN THE COLON, 01/18/14) PREGABALIN (Verified Adverse Reaction, Intermediate, "hypernervous", ) ACETAMINOPHEN (Verified Adverse Reaction, Mild, IRRITABILITY AND ELEVATED BLOOD PRESSURE, 01/18/14) IBUPROFEN (Verified Adverse Reaction, Mild, IRRITABILITY AND ELEVATED BLOOD PRESSURE, 01/18/14) Uncoded Allergies: SSRI (Allergy, Unknown, 10/11/17) Subjective episodes of confusion. doing well refuses to go home. the pt is anxious the pt wants placement the pt took meds today Objective Last 24 Hour Vital Signs Date Time Temp Pulse Resp B/P (MAP) Pulse Ox O2 Delivery O2 Flow Rate FiO2 10/30/17 20:00 97.0 63 20 123/52 90 97.0 10/30/17 16:00 98.1 76 18 131/66 99 Room Air 98.1 10/30/17 12:00 97.8 72 18 134/62 98 Room Air 97.8 10/30/17 09:00 79 106/62 10/30/17 08:39 97.7 79 18 106/62 95 Room Air 97.7 10/30/17 06:40 98.8 84 18 120/70 96 Room Air 98.8 10/30/17 05:40 98.6 72 18 118/66 95 Room Air 98.6 10/30/17 04:40 Room Air 10/30/17 04:40 98.2 70 19 127/48 95 98.2 10/30/17 03:40 98.4 70 20 125/62 95 Room Air 98.4 10/30/17 02:40 98.8 70 20 121/59 93 Room Air 98.8 10/30/17 02:10 99.4 82 20 113/61 92 99.4 10/30/17 00:00 98.5 70 18 126/43 95 98.5 Intake and Output 10/29/17 10/30/17 19:00 07:00 Intake Total 740 ml 480 ml Output Total 400 ml 300 ml Balance 340 ml 180 ml Intake Oral 740 ml 480 ml Output Urine Total 400 ml 300 ml # Voids 2 Laboratory Tests 10/30/17 09:10: C-Reactive Protein, Quantitative 15.9H 10/30/17 10:00: Sodium Level 135L, Potassium Level 4.5, Chloride Level 101, Carbon Dioxide Level 21, Anion Gap 13, Blood Urea Nitrogen 33H, Creatinine 3.1H, Estimat Glomerular Filtration Rate , Glucose Level 113H, Calcium Level 8.2L, Phosphorus Level 4.4, Magnesium Level 1.9, Total Bilirubin 0.5, Aspartate Amino Transf (AST /SGOT) 69H, Alanine Aminotransferase (ALT/SGPT) 29, Alkaline Phosphatase 88, Total Creatine Kinase 1398H, Total Protein 6.9, Albumin 2.3L, Globulin 4.6, Albumin/Globulin Ratio 0.5L Height (Feet): 5 Height (Inches): 8.00 Weight (Pounds): 185 Milton Lancaster M.D. Oct 30, 2017 22:15
--- NOTE | 2017-10-30 22:38 | General Progress Note ---
Assessment/Plan Assessment/Plan #. Encephalopathy. --> Pt unable to take care of self #. Anemia due to underlying chronic disease. --> Continue to closely monitor and trend. Hemoglobin goal is above 7 --> anemia workup reviewed. Iron 9, TIBC 127, B12 1791, Folate 41 --> Hemoglobin has been above goal, no prbc needed. --> Has been refusing blood draws past few days. #. Anemia of iron deficiency, potentially secondary to osteomyelitis. --> Monitor closely. Trend cbc. --> On iron supplement #. Anemia due to underlying kidney disease. --> Closely monitor, again improving. #. Leukocytosis, status post debridement, gram-negative jasmyn infection noted. --> Resolved. --> Remains on meropenem. Monitor closely. --> Infectious Disease Service following. #. Thrombocytosis, likely reactive process from underlying anemia, closely monitor for improvement. --> Resolved. #. Elevated creatinine, chronic kidney disease. #. Diabetes mellitus, on insulin sliding scale as needed as per primary team. #. Diastolic dysfunction. DC planning for SNF. Patient unable to take care of self at home. Subjective Date patient seen: Oct 30, 2017 Constitutional: Denies: no symptoms, chills, diaphoresis, fever, malaise, weakness, other HEENT: Denies: no symptoms, eye pain, blurred vision, tearing, double vision, ear pain, ear discharge, nose pain, nose congestion, throat pain, throat swelling, mouth pain, mouth swelling, other Cardiovascular: Denies: no symptoms, chest pain, edema, irregular heart rate, lightheadedness, palpitations, syncope, other Respiratory: Denies: no symptoms, cough, orthopnea, shortness of breath, SOB with excertion, SOB at rest, sputum, stridor, wheezing, other Gastrointestinal/Abdominal: Denies: no symptoms, abdomen distended, abdominal pain, black stools, tarry stools, blood in stool, constipated, diarrhea, difficulty swallowing, nausea, poor appetite, poor fluid intake, rectal bleeding , vomiting, other Genitourinary: Denies: no symptoms, burning, discharge, frequency, flank pain, hematuria, incontinence, pain, urgency, other Neurologic/Psychiatric: Denies: no symptoms, anxiety, depressed, emotional problems, headache, numbness, paresthesia, pre-existing deficit, seizure, tingling, tremors, weakness, other Hematologic/Lymphatic: Reports: anemia Allergies: Coded Allergies: GABAPENTIN (Verified Allergy, Unknown, 10/11/17) OLIVE OIL (Verified Adverse Reaction, Severe, SPASM IN THE COLON, 01/18/14) PREGABALIN (Verified Adverse Reaction, Intermediate, "hypernervous", ) ACETAMINOPHEN (Verified Adverse Reaction, Mild, IRRITABILITY AND ELEVATED BLOOD PRESSURE, 01/18/14) IBUPROFEN (Verified Adverse Reaction, Mild, IRRITABILITY AND ELEVATED BLOOD PRESSURE, 01/18/14) Uncoded Allergies: SSRI (Allergy, Unknown, 10/11/17) Subjective Confused at times. Refuses labs and does not want to go home. Objective Last 24 Hour Vital Signs Date Time Temp Pulse Resp B/P (MAP) Pulse Ox O2 Delivery O2 Flow Rate FiO2 10/30/17 20:00 97.0 63 20 123/52 90 97.0 10/30/17 16:00 98.1 76 18 131/66 99 Room Air 98.1 10/30/17 12:00 97.8 72 18 134/62 98 Room Air 97.8 10/30/17 09:00 79 106/62 10/30/17 08:39 97.7 79 18 106/62 95 Room Air 97.7 10/30/17 06:40 98.8 84 18 120/70 96 Room Air 98.8 10/30/17 05:40 98.6 72 18 118/66 95 Room Air 98.6 10/30/17 04:40 Room Air 10/30/17 04:40 98.2 70 19 127/48 95 98.2 10/30/17 03:40 98.4 70 20 125/62 95 Room Air 98.4 10/30/17 02:40 98.8 70 20 121/59 93 Room Air 98.8 10/30/17 02:10 99.4 82 20 113/61 92 99.4 10/30/17 00:00 98.5 70 18 126/43 95 98.5 Intake and Output 10/29/17 10/30/17 19:00 07:00 Intake Total 740 ml 480 ml Output Total 400 ml 300 ml Balance 340 ml 180 ml Intake Oral 740 ml 480 ml Output Urine Total 400 ml 300 ml # Voids 2 Laboratory Tests 10/30/17 09:10: C-Reactive Protein, Quantitative 15.9H 10/30/17 10:00: Sodium Level 135L, Potassium Level 4.5, Chloride Level 101, Carbon Dioxide Level 21, Anion Gap 13, Blood Urea Nitrogen 33H, Creatinine 3.1H, Estimat Glomerular Filtration Rate , Glucose Level 113H, Calcium Level 8.2L, Phosphorus Level 4.4, Magnesium Level 1.9, Total Bilirubin 0.5, Aspartate Amino Transf (AST /SGOT) 69H, Alanine Aminotransferase (ALT/SGPT) 29, Alkaline Phosphatase 88, Total Creatine Kinase 1398H, Total Protein 6.9, Albumin 2.3L, Globulin 4.6, Albumin/Globulin Ratio 0.5L Height (Feet): 5 Height (Inches): 8.00 Weight (Pounds): 185 General Appearance: agitated Respiratory/Chest: decreased breath sounds Abdomen: soft Edema: trace edema Skin: warm/dry Giovany Wiggins MD Oct 30, 2017 22:38
[2017-10-31] VITALS: BP 92/60
[2017-10-31 04:00] VITALS: BP 98/58
[2017-10-31] MEDS: oxyCONTIN 10mg tab ORAL SCH ×3 (06:18→22:10)
[2017-10-31] MEDS: NovoLOG Insulin Flexpen SUBQ SCH ×5 (06:19→21:00)
[2017-10-31 08:00] VITALS: BP 129/69
[2017-10-31] MEDS: Nephrovite tab (Rena-Vite) ORAL SCH (08:31)
[2017-10-31] MEDS: Docusate 100mg cap ORAL SCH ×3 (08:31→17:37)
[2017-10-31] MEDS: Tamsulosin 0.4mg cap ORAL SCH ×2 (08:31→17:37)
[2017-10-31] MEDS: Vitamin D 1000 IU Tab ORAL SCH (08:32)
[2017-10-31] MEDS: Ascorbic Acid 500mg tab ORAL SCH (08:32)
[2017-10-31] MEDS: Heparin 5000 units/ml inj SUBQ SCH ×2 (08:33→21:00)
[2017-10-31] MEDS: Dakin's 0.125% Soln (Quarter Strength) 16oz TOPIC SCH (08:33)
[2017-10-31] MEDS: Analgesic Balm 15gm TOPIC SCH ×2 (08:43→17:37)
[2017-10-31] MEDS: Doxazosin 1mg Tab ORAL SCH ×3 (09:00→17:36)
[2017-10-31 09:10] LABS: ALANINE AMINOTRANSFERASE 29 U/L (12-78); ALBUMIN 2.6 G/DL (3.4-5.0); ALBUMIN/GLOBULIN RATIO 0.6 (1.0-2.7); ALKALINE PHOSPHATASE 84 U/L (46-116); ANION GAP 14 mmol/L (5-15); ASPARTATE AMINO TRANSFERASE 71 U/L (15-37); BILIRUBIN,TOTAL 0.6 MG/DL (0.2-1.0); BLOOD UREA NITROGEN 37 mg/dL (7-18); CALCIUM 8.1 MG/DL (8.5-10.1); CARBON DIOXIDE 19 MMOL/L (21-32); CHLORIDE 104 MMOL/L (98-107); CREATINE KINASE 1131 U/L (26-308); CREATININE 2.9 MG/DL (0.55-1.30); POTASSIUM 5.3 MMOL/L (3.5-5.1); SODIUM 137 MMOL/L (136-145)
[2017-10-31] MEDS: Tigecycline 50mg in D5W 110ml IVPB SCH ×3 (09:30→22:19)
[2017-10-31 09:34] LABS: PHOSPHORUS 4.4 MG/DL (2.5-4.9)
[2017-10-31] MEDS ORDERED: Sodium Polystyrene Sulfonate 15gm Powder ORAL ONE (11:15)
[2017-10-31 13:10] LABS: BASOPHILS % (AUTO) 1.2 % (0.0-2.0); EOSINOPHILS % (AUTO) 3.5 % (0.0-3.0); HEMATOCRIT 26.2 % (42.0-52.0); HEMOGLOBIN 8.4 G/DL (14.2-18.0); LYMPHOCYTES % (AUTO) 14.7 % (20.0-45.0); MEAN CORPUSCULAR VOLUME 78 FL (80-99); MONOCYTES % (AUTO) 7.3 % (1.0-10.0); NEUTROPHILS % (AUTO) 73.4 % (45.0-75.0); PLATELET COUNT 398 K/UL (150-450); RED BLOOD COUNT 3.34 M/UL (4.70-6.10); RED CELL DISTRIBUTION WIDTH 15.5 % (11.6-14.8); WHITE BLOOD COUNT 10.9 K/UL (4.8-10.8)
--- NOTE | 2017-10-31 15:41 | Nephrology Progress Note ---
Assessment/Plan Problem List: (1) HTN (hypertension) (2) Diabetes mellitus (3) Ulcer of left heel (4) Renal insufficiency Assessment cr carlos above 3 now gradually lowering Foot ulcer, left left leg cellulitis, left heel ulcer, ? osteo, leukocytosis, lgt Renal insufficiency acute vs chronic Cr lowering now 1.5 Urinary retention: REFUSES CONNOLLY Anemia UTI Plan refuses connolly fluid challenge Avoid Nephrotoxics Keep BP in check monitor renal parameters Anemia henry urine studies flomax start cardura Kidney FAMILIA Unremarkable kidneys. Negative for hydronephrosis Note inability of the patient to void with a bladder volume of 337 mL 2D echo :Left ventricular ejection fraction estimated to be 55-60%. No evidence of left ventricular hypertrophy. Subjective ROS Limited/Unobtainable: No Constitutional: Reports: malaise Objective Objective Last 24 Hour Vital Signs Date Time Temp Pulse Resp B/P (MAP) Pulse Ox O2 Delivery O2 Flow Rate FiO2 10/31/17 15:29 97.3 10/31/17 08:00 97.3 75 17 129/69 95 Room Air 97.3 10/31/17 04:00 97.4 87 20 98/58 90 97.4 10/31/17 00:00 97.0 80 21 92/60 92 97.0 10/30/17 20:00 97.0 63 20 123/52 90 97.0 10/30/17 16:00 98.1 76 18 131/66 99 Room Air 98.1 Intake and Output 10/30/17 10/31/17 19:00 07:00 Intake Total 360 ml Balance 360 ml Intake Oral 360 ml Bladder Scan Volume Amount 407 # Voids 4 5 Laboratory Tests 10/31/17 06:00: Sodium Level 137, Potassium Level 5.3H, Chloride Level 104, Carbon Dioxide Level 19L, Anion Gap 14, Blood Urea Nitrogen 37H, Creatinine 2.9H, Estimat Glomerular Filtration Rate , Glucose Level 121H, Uric Acid 8.7H, Calcium Level 8.1L, Phosphorus Level 4.4, Magnesium Level 2.0, Total Bilirubin 0.6, Aspartate Amino Transf (AST/SGOT) 71H, Alanine Aminotransferase (ALT/SGPT) 29, Alkaline Phosphatase 84, Total Creatine Kinase 1131H, Total Protein 6.9, Albumin 2.6L, Globulin 4.3, Albumin/Globulin Ratio 0.6L 10/31/17 12:35: White Blood Count 10.9H, Red Blood Count 3.34L, Hemoglobin 8.4L, Hematocrit 26.2L, Mean Corpuscular Volume 78L, Mean Corpuscular Hemoglobin 25.1L, Mean Corpuscular Hemoglobin Concent 32.1, Red Cell Distribution Width 15.5H, Platelet Count 398, Mean Platelet Volume 6.0L, Neutrophils (%) (Auto) 73.4, Lymphocytes (%) (Auto) 14.7L, Monocytes (%) (Auto) 7.3, Eosinophils (%) (Auto) 3.5H, Basophils (%) (Auto) 1.2 Height (Feet): 5 Height (Inches): 8.00 Weight (Pounds): 185 General Appearance: no apparent distress Respiratory/Chest: decreased breath sounds Abdomen: soft, distended Objective no other changes IHSAN REGALADO 19, 2018 15:41
[2017-10-31] MEDS ORDERED: Sodium Chloride 500ML 500 ML IV ONE (15:45)
--- NOTE | 2017-10-31 15:45 | Progress Note ---
DATE: 10/31/2017 SUBJECTIVE: The patient is calm, still depressed, has episodes of confusion, refusing to go home once placement in rehabilitation, afraid he may fall at home. The patient is also illogical, at times refuses medications and treatment. MENTAL STATUS EXAMINATION: The patient is alert, oriented to self, place. Mood is irritable. Affect is constricted. Congruent with mood. Thought process is concrete. Thought content, no suicidal or homicidal ideation. Cognition is impaired. Milton Lancaster M.D. DR: ALMITA JOB#: [id number] CC:
[2017-10-31 16:00] VITALS: BP 130/68
[2017-10-31] MEDS: Ertapenem 0.5 GM in NS 55 ML IVPB SCH (16:32)
--- NOTE | 2017-10-31 17:04 | Diagnostic Imaging Report ---
Indications: Needs long-term IV access Technique: Ultrasound confirms patent compressible right basilic vein. Total sterile technique, including sterile probe cover and sterile gel, hat, mask,, sterile gown, large sterile drape, and preparation with 2% chlorhexidine utilized. Local anesthesia with 1% lidocaine. Under real-time ultrasound guidance, puncture basilic vein using 21-gauge needle, documented and archived, passage 0.018 guidewire under direct fluoroscopy, which was used to determine appropriate catheter length, exchange for 5 [place] peel-away sheath. 5 [place] Bard dual-lumen power PICC cut to 36 cm. It was inserted through the peel-away sheath. Peel-away sheath and guidewire removed. Catheter fixed to the skin. Both catheter ports aspirated and flushed. Patient tolerated procedure well, without immediate complication. Digital radiograph documents satisfactory catheter tip position, at the cavoatrial junction. Total fluoroscopy time 0.6 minutes. Total dose area product 25 dGycm2 Impression: Successful placement of right arm PICC under sonographic and fluoroscopic guidance, as described above.
[2017-10-31] MEDS: Levemir Flexpen SUBQ SCH (18:00)
[2017-10-31 20:00] VITALS: BP 145/59
[2017-10-31] MEDS: Dyna-Hex 2% Top Sol 2oz TOPIC SCH ×2 (20:00→22:17)
--- NOTE | 2017-10-31 22:09 | General Progress Note ---
Assessment/Plan Problem List: (1) Gram-negative bacteremia Assessment & Plan: Bacterioides fragilis bacteremia ICD Codes: R78.81 - Bacteremia SNOMED: 082088511805 (2) Sepsis ICD Codes: A41.9 - Sepsis, unspecified organism SNOMED: 68351609 (3) Progressive osteomyelitis of the posterior calcaneus (4) Cellulitis of left lower extremity ICD Codes: L03.116 - Cellulitis of left lower limb SNOMED: 467386697 (5) L heel diabetic ulcer with concern for osteomyelitis (6) Complete tear with retraction of the calcaneal tendon (7) MISHEL on CKD (8) CKD stage 3 (9) DM2 (diabetes mellitus, type 2) Assessment & Plan: A1C 9.9 ICD Codes: E11.9 - Type 2 diabetes mellitus without complications SNOMED: 72768446 (10) HTN (hypertension) ICD Codes: I10 - Essential (primary) hypertension SNOMED: 42006607 (11) Diabetic neuropathy ICD Codes: E11.40 - Type 2 diabetes mellitus with diabetic neuropathy, unspecified SNOMED: 35636946, 488449094, 055889849 (12) Diabetic nephropathy ICD Codes: E11.21 - Type 2 diabetes mellitus with diabetic nephropathy SNOMED: 14964796, 132611497 Qualifiers: Qualified Codes: E11.21 - Type 2 diabetes mellitus with diabetic nephropathy (13) Hyponatremia ICD Codes: E87.1 - Hypo-osmolality and hyponatremia SNOMED: 99150519 (14) Chronic diabetic ulcer right foot (15) Medical non-compliance ICD Codes: Z91.19 - Patient's noncompliance with other medical treatment and regimen SNOMED: 812519052 (16) Acute on chronic diastolic (congestive) heart failure ICD Codes: I50.33 - Acute on chronic diastolic (congestive) heart failure SNOMED: 94966542, 931016519 Status: stable Assessment/Plan Podiatry, ID, renal consulted s/p vanco (10/11-10/16) Cont meropenem (10/14-) Cont daptomycin 8mg/kg for VRE (10/17-) Will need total of 6 weeks of IV abx per ID given osteomyelitis s/p cefepime and flagyl (10/11-10/14) F/u cultures--blood culture showing GNR, wound culture showing Klebsiella and Proteus F/u repeat blood cultures--ngtd PICC line placed 10/17/17 Wound care per podiatry Check MRI L foot--shows progressive osteomyelitis, heel ulceration, soft tissue gas, complete tear of Achilles tendon s/p incision and drainage left foot, excisional debridement to the level of muscle left foot, and partial calcanectomy left foot on 10/13/17 NWB LLE Off wound vac now per podiatry Check renal U/S--shows bladder volume 337mL, refused connolly Flomax 0.4mg BID + finasteride 5mg daily Check TTE--EF 55-60% IVFs restarted per renal given rising SCr Pain control, bowel regimen Supportive care Appreciate psych consult Cont SNF meds ZENIA DC once authorization for SNF obtained Pt unable to go home as he lives alone, 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 Disposition: Once the patient is stable to leave the hospital, I anticipate the patient will likely be discharged to the following environment: back to SNF Discussed with patient/family, nursing staff, SW/CM, podiatry, ID regarding clinical status, treatment course, and disposition planning. D/w ID re abx on d/ c. D/w podiatry re wound care, d/c plan. D/w CM re dispo Time of note may not reflect time of encounter Subjective Date patient seen: Oct 31, 2017 Time patient seen: 16:00 ROS Limited/Unobtainable: No Allergies: Coded Allergies: GABAPENTIN (Verified Allergy, Unknown, 10/11/17) OLIVE OIL (Verified Adverse Reaction, Severe, SPASM IN THE COLON, 01/18/14) PREGABALIN (Verified Adverse Reaction, Intermediate, "hypernervous", ) ACETAMINOPHEN (Verified Adverse Reaction, Mild, IRRITABILITY AND ELEVATED BLOOD PRESSURE, 01/18/14) IBUPROFEN (Verified Adverse Reaction, Mild, IRRITABILITY AND ELEVATED BLOOD PRESSURE, 01/18/14) Uncoded Allergies: SSRI (Allergy, Unknown, 10/11/17) Subjective No acute o/n events s/p incision and drainage left foot, excisional debridement to the level of muscle left foot, and partial calcanectomy left foot POD#18 SCr rising up to 3.1 over the weekend. Given IVFs per renal Awaiting authorization for SNF as pt's Medicare days have run out Pt is noncompliant with meds Pt feels depressed and frustrated that he is still here Pt c/o foot pain. More awake, alert. Denies n/v, d/c, chest pain, SOB, abd pain Objective Last 24 Hour Vital Signs Date Time Temp Pulse Resp B/P (MAP) Pulse Ox O2 Delivery O2 Flow Rate FiO2 10/31/17 20:00 98.8 67 20 145/59 95 98.8 10/31/17 16:00 98.0 85 18 130/68 96 Room Air 98.0 10/31/17 15:29 97.3 10/31/17 08:00 97.3 75 17 129/69 95 Room Air 97.3 10/31/17 04:00 97.4 87 20 98/58 90 97.4 10/31/17 00:00 97.0 80 21 92/60 92 97.0 Intake and Output 10/30/17 10/31/17 19:00 07:00 Intake Total 360 ml Balance 360 ml Intake Oral 360 ml Bladder Scan Volume Amount 407 # Voids 4 5 Laboratory Tests 10/31/17 06:00: Sodium Level 137, Potassium Level 5.3H, Chloride Level 104, Carbon Dioxide Level 19L, Anion Gap 14, Blood Urea Nitrogen 37H, Creatinine 2.9H, Estimat Glomerular Filtration Rate , Glucose Level 121H, Uric Acid 8.7H, Calcium Level 8.1L, Phosphorus Level 4.4, Magnesium Level 2.0, Total Bilirubin 0.6, Aspartate Amino Transf (AST/SGOT) 71H, Alanine Aminotransferase (ALT/SGPT) 29, Alkaline Phosphatase 84, Total Creatine Kinase 1131H, Total Protein 6.9, Albumin 2.6L, Globulin 4.3, Albumin/Globulin Ratio 0.6L 10/31/17 12:35: White Blood Count 10.9H, Red Blood Count 3.34L, Hemoglobin 8.4L, Hematocrit 26.2L, Mean Corpuscular Volume 78L, Mean Corpuscular Hemoglobin 25.1L, Mean Corpuscular Hemoglobin Concent 32.1, Red Cell Distribution Width 15.5H, Platelet Count 398, Mean Platelet Volume 6.0L, Neutrophils (%) (Auto) 73.4, Lymphocytes (%) (Auto) 14.7L, Monocytes (%) (Auto) 7.3, Eosinophils (%) (Auto) 3.5H, Basophils (%) (Auto) 1.2 Height (Feet): 5 Height (Inches): 8.00 Weight (Pounds): 185 Objective General: alert, cooperative, no distress, appears stated age Head: normocephalic, without obvious abnormality, atraumatic Eyes: conjunctivae/corneas clear. PERRL, EOM's intact Throat: lips, mucosa, and tongue normal. MMM Neck: supple, symmetrical, trachea midline, and no JVD Lungs: clear to auscultation bilaterally Heart: regular rate and rhythm, S1, S2 normal, no murmur, click, rub or gallop Abdomen: soft, non-tender, non-distended, bowel sounds normal Extremities: extremities normal, atraumatic, no cyanosis, 1-2+ pitting edema BLE Pulses: 2+ and symmetric Skin: Left foot dressing c/d/i, Right foot dressing c/d/i Neurologic: grossly normal, no focal deficits Conner Orozco M.D. Oct 31, 2017 22:09
--- NOTE | 2017-10-31 23:14 | General Progress Note ---
Assessment/Plan Assessment/Plan #. Encephalopathy. --> Pt unable to take care of self. Refuses to go home. Pending placement in SNF. #. Anemia due to underlying chronic disease. --> Continue to closely monitor and trend. Hemoglobin goal is above 7 --> anemia workup reviewed. Iron 9, TIBC 127, B12 1791, Folate 41 --> Hemoglobin has been above goal, no prbc needed. --> Has been refusing blood draws past few days. #. Anemia of iron deficiency, potentially secondary to osteomyelitis. --> Monitor closely. Trend cbc. --> On iron supplement #. Anemia due to underlying kidney disease. --> Closely monitor, again improving. #. Leukocytosis, status post debridement, gram-negative jasmyn infection noted. --> Resolved. --> Remains on meropenem. Monitor closely. --> Infectious Disease Service following. #. Thrombocytosis, likely reactive process from underlying anemia, closely monitor for improvement. --> Resolved. #. Elevated creatinine, chronic kidney disease. #. Diabetes mellitus, on insulin sliding scale as needed as per primary team. #. Diastolic dysfunction. DC planning for SNF. Patient unable to take care of self at home. Subjective Date patient seen: Oct 31, 2017 Constitutional: Denies: no symptoms, chills, diaphoresis, fever, malaise, weakness, other HEENT: Denies: no symptoms, eye pain, blurred vision, tearing, double vision, ear pain, ear discharge, nose pain, nose congestion, throat pain, throat swelling, mouth pain, mouth swelling, other Cardiovascular: Denies: no symptoms, chest pain, edema, irregular heart rate, lightheadedness, palpitations, syncope, other Respiratory: Denies: no symptoms, cough, orthopnea, shortness of breath, SOB with excertion, SOB at rest, sputum, stridor, wheezing, other Gastrointestinal/Abdominal: Denies: no symptoms, abdomen distended, abdominal pain, black stools, tarry stools, blood in stool, constipated, diarrhea, difficulty swallowing, nausea, poor appetite, poor fluid intake, rectal bleeding , vomiting, other Genitourinary: Denies: no symptoms, burning, discharge, frequency, flank pain, hematuria, incontinence, pain, urgency, other Neurologic/Psychiatric: Denies: no symptoms, anxiety, depressed, emotional problems, headache, numbness, paresthesia, pre-existing deficit, seizure, tingling, tremors, weakness, other Hematologic/Lymphatic: Reports: anemia Allergies: Coded Allergies: GABAPENTIN (Verified Allergy, Unknown, 10/11/17) OLIVE OIL (Verified Adverse Reaction, Severe, SPASM IN THE COLON, 01/18/14) PREGABALIN (Verified Adverse Reaction, Intermediate, "hypernervous", ) ACETAMINOPHEN (Verified Adverse Reaction, Mild, IRRITABILITY AND ELEVATED BLOOD PRESSURE, 01/18/14) IBUPROFEN (Verified Adverse Reaction, Mild, IRRITABILITY AND ELEVATED BLOOD PRESSURE, 01/18/14) Uncoded Allergies: SSRI (Allergy, Unknown, 10/11/17) Subjective Confused at times. Refuses labs and does not want to go home. Objective Last 24 Hour Vital Signs Date Time Temp Pulse Resp B/P (MAP) Pulse Ox O2 Delivery O2 Flow Rate FiO2 10/31/17 20:00 98.8 67 20 145/59 95 98.8 10/31/17 16:00 98.0 85 18 130/68 96 Room Air 98.0 10/31/17 15:29 97.3 10/31/17 08:00 97.3 75 17 129/69 95 Room Air 97.3 10/31/17 04:00 97.4 87 20 98/58 90 97.4 10/31/17 00:00 97.0 80 21 92/60 92 97.0 Intake and Output 10/30/17 10/31/17 19:00 07:00 Intake Total 360 ml Balance 360 ml Intake Oral 360 ml Bladder Scan Volume Amount 407 # Voids 4 5 Laboratory Tests 10/31/17 06:00: Sodium Level 137, Potassium Level 5.3H, Chloride Level 104, Carbon Dioxide Level 19L, Anion Gap 14, Blood Urea Nitrogen 37H, Creatinine 2.9H, Estimat Glomerular Filtration Rate , Glucose Level 121H, Uric Acid 8.7H, Calcium Level 8.1L, Phosphorus Level 4.4, Magnesium Level 2.0, Total Bilirubin 0.6, Aspartate Amino Transf (AST/SGOT) 71H, Alanine Aminotransferase (ALT/SGPT) 29, Alkaline Phosphatase 84, Total Creatine Kinase 1131H, Total Protein 6.9, Albumin 2.6L, Globulin 4.3, Albumin/Globulin Ratio 0.6L 10/31/17 12:35: White Blood Count 10.9H, Red Blood Count 3.34L, Hemoglobin 8.4L, Hematocrit 26.2L, Mean Corpuscular Volume 78L, Mean Corpuscular Hemoglobin 25.1L, Mean Corpuscular Hemoglobin Concent 32.1, Red Cell Distribution Width 15.5H, Platelet Count 398, Mean Platelet Volume 6.0L, Neutrophils (%) (Auto) 73.4, Lymphocytes (%) (Auto) 14.7L, Monocytes (%) (Auto) 7.3, Eosinophils (%) (Auto) 3.5H, Basophils (%) (Auto) 1.2 Height (Feet): 5 Height (Inches): 8.00 Weight (Pounds): 185 General Appearance: confused Respiratory/Chest: decreased breath sounds Abdomen: soft Giovany Wiggins MD Oct 31, 2017 23:14
[2017-11-01] VITALS: BP 152/60
[2017-11-01 04:00] VITALS: BP 144/58
[2017-11-01] MEDS: NovoLOG Insulin Flexpen SUBQ SCH ×4 (05:42→21:00)
[2017-11-01] MEDS: oxyCONTIN 10mg tab ORAL SCH ×2 (06:09→22:14)
[2017-11-01 08:00] VITALS: BP 140/72
[2017-11-01 08:27] LABS: BASOPHILS % (AUTO) 0.8 % (0.0-2.0); EOSINOPHILS % (AUTO) 1.7 % (0.0-3.0); HEMATOCRIT 26.4 % (42.0-52.0); HEMOGLOBIN 8.4 G/DL (14.2-18.0); LYMPHOCYTES % (AUTO) 11.9 % (20.0-45.0); MEAN CORPUSCULAR VOLUME 78 FL (80-99); MONOCYTES % (AUTO) 3.5 % (1.0-10.0); PLATELET COUNT 396 K/UL (150-450); RED BLOOD COUNT 3.38 M/UL (4.70-6.10); RED CELL DISTRIBUTION WIDTH 15.4 % (11.6-14.8); WHITE BLOOD COUNT 11.8 K/UL (4.8-10.8)
[2017-11-01] MEDS: Tigecycline 50mg in D5W 110ml IVPB SCH ×2 (08:28→22:09)
[2017-11-01 08:57] LABS: ANION GAP 11 mmol/L (5-15); BLOOD UREA NITROGEN 41 mg/dL (7-18); CALCIUM 7.9 MG/DL (8.5-10.1); CARBON DIOXIDE 24 MMOL/L (21-32); CHLORIDE 106 MMOL/L (98-107); CREATININE 2.5 MG/DL (0.55-1.30); PHOSPHORUS 3.8 MG/DL (2.5-4.9); POTASSIUM 4.3 MMOL/L (3.5-5.1); SODIUM 141 MMOL/L (136-145)
[2017-11-01] MEDS: Analgesic Balm 15gm TOPIC SCH ×2 (09:00→18:00)
[2017-11-01] MEDS: Tamsulosin 0.4mg cap ORAL SCH ×2 (09:00→18:00)
[2017-11-01] MEDS: Heparin 5000 units/ml inj SUBQ SCH ×2 (09:00→20:18)
[2017-11-01] MEDS: Nephrovite tab (Rena-Vite) ORAL SCH (09:00)
[2017-11-01] MEDS: Ascorbic Acid 500mg tab ORAL SCH (09:00)
[2017-11-01] MEDS: Dakin's 0.125% Soln (Quarter Strength) 16oz TOPIC SCH (09:00)
[2017-11-01] MEDS: Doxazosin 1mg Tab ORAL SCH ×3 (09:00→18:00)
[2017-11-01] MEDS: Docusate 100mg cap ORAL SCH ×3 (09:00→18:00)
[2017-11-01] MEDS: Vitamin D 1000 IU Tab ORAL SCH (09:00)
[2017-11-01 12:00] VITALS: BP 124/61
--- NOTE | 2017-11-01 15:28 | Nephrology Progress Note ---
Assessment/Plan Problem List: (1) HTN (hypertension) (2) Diabetes mellitus (3) Ulcer of left heel (4) Renal insufficiency Assessment cr carlos above 3 now gradually lowering Foot ulcer, left left leg cellulitis, left heel ulcer, ? osteo, leukocytosis, lgt Renal insufficiency acute vs chronic Cr lowering now 1.5 Urinary retention: REFUSES CONNOLLY Anemia UTI Plan refuses connolly fluid challenge Avoid Nephrotoxics Keep BP in check monitor renal parameters Anemia henry urine studies flomax start cardura Kidney FAMILIA Unremarkable kidneys. Negative for hydronephrosis Note inability of the patient to void with a bladder volume of 337 mL 2D echo :Left ventricular ejection fraction estimated to be 55-60%. No evidence of left ventricular hypertrophy. Subjective ROS Limited/Unobtainable: No Constitutional: Reports: malaise Objective Objective Last 24 Hour Vital Signs Date Time Temp Pulse Resp B/P (MAP) Pulse Ox O2 Delivery O2 Flow Rate FiO2 11/01/17 12:00 98.4 68 18 124/61 98.4 11/01/17 08:00 98.1 75 20 140/72 96 98.1 11/01/17 04:00 99.4 70 21 144/58 94 99.4 11/01/17 00:00 99.2 77 20 152/60 93 99.2 10/31/17 20:00 98.8 67 20 145/59 95 98.8 10/31/17 16:00 98.0 85 18 130/68 96 Room Air 98.0 10/31/17 15:29 97.3 Intake and Output 10/31/17 11/01/17 19:00 07:00 Intake Total 140 ml 110 ml Output Total 333 ml 850 ml Balance -193 ml -740 ml Intake Oral 140 ml IV Total 110 ml Output Urine Total 200 ml 850 ml Post Void Residual 133 ml Bladder Scan Volume Amount 151-200 ml # Voids 2 Laboratory Tests 11/01/17 06:10: White Blood Count 11.8H, Red Blood Count 3.38L, Hemoglobin 8.4L, Hematocrit 26.4L, Mean Corpuscular Volume 78L, Mean Corpuscular Hemoglobin 25.0L, Mean Corpuscular Hemoglobin Concent 32.0, Red Cell Distribution Width 15.4H, Platelet Count 396, Mean Platelet Volume 5.7L, Neutrophils (%) (Auto) 82.0H, Lymphocytes (%) (Auto) 11.9L, Monocytes (%) (Auto) 3.5, Eosinophils (%) (Auto) 1.7, Basophils (%) (Auto) 0.8, Sodium Level 141, Potassium Level 4.3, Chloride Level 106, Carbon Dioxide Level 24, Anion Gap 11, Blood Urea Nitrogen 41H, Creatinine 2.5H, Estimat Glomerular Filtration Rate , Glucose Level 144H, Calcium Level 7.9L, Phosphorus Level 3.8, Magnesium Level 2.0 Height (Feet): 5 Height (Inches): 8.00 Weight (Pounds): 185 General Appearance: no apparent distress Cardiovascular: normal rate Respiratory/Chest: decreased breath sounds Abdomen: distended Objective no other changes IHSAN REGALADO Nov 01, 2017 15:27
--- NOTE | 2017-11-01 15:37 | Infectious Diseases Prog Note ---
Assessment/Plan Assessment/Plan ASSESSMENT AND PLAN: 1. bacteroides bacteremia, proteus/klebsiella/vre left heel/foot wound infection and osteomyelitis on MRI, sepsis, leukocytosis, ? fungal uti - elevated CK noted, ? secondary to fall vs daptomycin - s/p debridement, debridement as needed per podiatry - leg redness better - mild leukocytosis - continue wound care per podiatry - f/u labs, surveillance blood cultures negative - invanz and tygecycline for now, because of elevated ck, may rechallenge with daptomycin at later date - abx started on 10/14, plan on 6 week course - day #18/42 - vre colonized - fungal uti s/p diflucan - d/w Dr. Prieto 2. Elevated creatinine, chronic renal failure, acute kidney injury, elevated ck , s/p fall, ? rhabdomyolysis 3. Anemia. 4. The patient with history of diabetes. 5. Hypertension. 6. Blood sugar and blood pressure treatment per primary. 7. Benign prostatic hypertrophy. 8. Atherosclerotic cardiovascular disease. 9. Chronic diastolic congestive heart failure. 10. Anemia. 11. Dizziness, headaches, weakness, and fatigue. 12. Allergies, acetaminophen, gabapentin, ibuprofen, Elavil, pregabalin, and selective serotonin reuptake inhibitors. 13. Social history negative. 14. Family history noncontributory. 15. MAR was noted. 16. Case discussed with RN. 17. Continue treatment per primary consultants. 18. Orders were entered. 19. Notes and records noted. Subjective Constitutional: Denies: fever HEENT: Denies: congestion Respiratory: Denies: shortness of breath Gastrointestinal/Abdominal: Denies: nausea, vomiting, diarrhea Genitourinary: Denies: dysuria Neurologic: Denies: headache Psychiatric: Denies: depression Skin: Denies: rash Hematologic: Denies: other Musculoskeletal: Denies: no symptoms, pain Allergies: Coded Allergies: GABAPENTIN (Verified Allergy, Unknown, 10/11/17) OLIVE OIL (Verified Adverse Reaction, Severe, SPASM IN THE COLON, 01/18/14) PREGABALIN (Verified Adverse Reaction, Intermediate, "hypernervous", ) ACETAMINOPHEN (Verified Adverse Reaction, Mild, IRRITABILITY AND ELEVATED BLOOD PRESSURE, 01/18/14) IBUPROFEN (Verified Adverse Reaction, Mild, IRRITABILITY AND ELEVATED BLOOD PRESSURE, 01/18/14) Uncoded Allergies: SSRI (Allergy, Unknown, 10/11/17) Objective Vital Signs Last 24 Hour Vital Signs Date Time Temp Pulse Resp B/P (MAP) Pulse Ox O2 Delivery O2 Flow Rate FiO2 11/01/17 12:00 98.4 68 18 124/61 98.4 11/01/17 08:00 98.1 75 20 140/72 96 98.1 11/01/17 04:00 99.4 70 21 144/58 94 99.4 11/01/17 00:00 99.2 77 20 152/60 93 99.2 10/31/17 20:00 98.8 67 20 145/59 95 98.8 10/31/17 16:00 98.0 85 18 130/68 96 Room Air 98.0 Height (Feet): 5 Height (Inches): 8.00 Weight (Pounds): 185 General Appearance: no acute distress HEENT: normocephalic, atraumatic, anicteric, mucous membranes moist, EOMI, pharynx normal, supple, no JVD Respiratory/Chest: lungs clear, normal breath sounds, no respiratory distress, no accessory muscle use Cardiovascular: normal rate, regular rhythm, no gallop/murmur, no JVD Abdomen: normal bowel sounds, soft, non tender, no organomegaly, non distended Genitourinary: other - no connolly Extremities: no cyanosis, other - left leg redness less Skin: no rash 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 No acute process otherwise. MRI left foot and ankle - Impression: Positive for progressive osteomyelitis of the posterior calcaneus, since prior study of 08/02/2017 Increasing ulceration of the overlying soft tissues, with possible exposure of the medial aspect of the calcaneal tuberosity. Small amount of gas within the medial soft tissues,. The related open wound or could indicate infection by gas-forming organism Complete tear with retraction of the calcaneal tendon, as described. Fluid in the tibiotalar joint. Probably reactive secondary to the above Diffuse edema of the subcutaneous fat. This could be due to cellulitis or could be related to hemodynamic abnormalities Other findings as noted Findings discussed by phone with Dr. Prieto at the time of interpretation Microbiology Date/Time Source Procedure Growth Status 10/14/17 08:50 Blood Blood Culture - Final NO GROWTH AFTER 5 DAYS Complete 10/11/17 17:00 Nasal Nares MRSA Culture - Final NO METHICILLIN RESISTANT STAPH AUREUS... Complete 10/30/17 04:15 Urine,Clean Catch Urine Culture - Preliminary Yeast Species Resulted 10/13/17 19:20 Foot Left Gram Stain - Final Complete 10/13/17 19:20 Aerobic Culture - Final Klebsiella Pneumoniae Proteus Mirabilis Enterococcus Faecium - Vre Complete 10/13/17 19:20 Foot Left Anaerobic Culture - Final NO ANAEROBES ISOLATED Complete Microbiology Date/Time Source Procedure Growth Status 10/30/17 04:15 Urine,Clean Catch Urine Culture - Preliminary Yeast Species Resulted Laboratory Tests Test 11/01/17 06:10 White Blood Count 11.8 K/UL (4.8-10.8) H Red Blood Count 3.38 M/UL (4.70-6.10) L Hemoglobin 8.4 G/DL (14.2-18.0) L Hematocrit 26.4 % (42.0-52.0) L Mean Corpuscular Volume 78 FL (80-99) L Mean Corpuscular Hemoglobin 25.0 PG (27.0-31.0) L Mean Corpuscular Hemoglobin Concent 32.0 G/DL (32.0-36.0) Red Cell Distribution Width 15.4 % (11.6-14.8) H Platelet Count 396 K/UL (150-450) Mean Platelet Volume 5.7 FL (6.5-10.1) L Neutrophils (%) (Auto) 82.0 % (45.0-75.0) H Lymphocytes (%) (Auto) 11.9 % (20.0-45.0) L Monocytes (%) (Auto) 3.5 % (1.0-10.0) Eosinophils (%) (Auto) 1.7 % (0.0-3.0) Basophils (%) (Auto) 0.8 % (0.0-2.0) Sodium Level 141 MMOL/L (136-145) Potassium Level 4.3 MMOL/L (3.5-5.1) Chloride Level 106 MMOL/L (98-107) Carbon Dioxide Level 24 MMOL/L (21-32) Anion Gap 11 mmol/L (5-15) Blood Urea Nitrogen 41 mg/dL (7-18) H Creatinine 2.5 MG/DL (0.55-1.30) H Estimat Glomerular Filtration Rate mL/min (>60) Glucose Level 144 MG/DL (74-106) H Calcium Level 7.9 MG/DL (8.5-10.1) L Phosphorus Level 3.8 MG/DL (2.5-4.9) Magnesium Level 2.0 MG/DL (1.8-2.4) Current Medications Medications (Trade) Dose Ordered Sig/Dari Route PRN Reason Start Time Stop Time Status Last Admin Dose Admin Acetaminophen (Tylenol) 650 mg Q4H PRN ORAL Mild Pain (Scale 1-3), fever 10/11/17 16:45 11/10/17 16:44 Ascorbic Acid (Vitamin C) 500 mg DAILY ORAL 10/25/17 09:00 11/24/17 08:59 10/30/17 08:59 Bisacodyl (Dulcolax) 10 mg HSPRN PRN RECTAL Constipation 10/11/17 17:15 11/10/17 17:14 Chlorhexidine Gluconate (Sarah-Hex 2%) 1 applic DAILY@1999 TOPIC 10/31/17 20:00 11/30/17 19:59 Chlorhexidine Gluconate (Sarah-Hex 2%) 1 applic DAILY@1999 TOPIC 10/17/17 20:00 11/16/17 19:59 10/31/17 22:17 Clotrimazole (Lotrimin) 1 applic EVERY 12 HOURS TOPIC 10/14/17 21:00 11/13/17 20:59 10/30/17 21:40 Dextrose (Dextrose 50%) STAT PRN IV Hypoglycemia 10/11/17 16:45 11/10/17 16:44 Diphenhydramine HCl (Benadryl) 25 mg Q6H PRN ORAL Itching 10/22/17 23:45 11/21/17 23:44 10/23/17 04:04 Docusate Sodium (Colace) 100 mg TID ORAL 10/12/17 13:30 11/10/17 13:29 10/31/17 15:29 Doxazosin Mesylate (Cardura) 1 mg TID ORAL 10/16/17 13:00 11/15/17 12:59 10/31/17 15:29 Ertapenem 0.5 gm/ Sodium Chloride 55 ml @ 110 mls/hr Q24H IVPB 10/31/17 16:00 11/05/17 15:59 10/31/17 16:32 Finasteride (Proscar) 5 mg DAILY ORAL 10/12/17 09:00 11/11/17 08:59 10/30/17 08:59 Heparin Sodium (Porcine) (Heparin 5000 units/ml) 5,000 units EVERY 12 HOURS SUBQ 10/11/17 21:00 11/10/17 20:59 10/24/17 22:35 Insulin Aspart (NovoLOG) BEFORE MEALS AND HS SUBQ 10/11/17 21:00 11/10/17 20:59 11/01/17 12:02 Insulin Detemir (Levemir) 12 units Q24H SUBQ 10/16/17 18:00 11/15/17 17:59 10/30/17 17:39 Menthol/Methyl Salicylate (Bengay) 1 applic BID TOPIC 10/18/17 20:00 11/17/17 19:59 10/30/17 17:41 Mirtazapine (Remeron) 15 mg BEDTIME ORAL 10/11/17 21:00 11/10/17 20:59 10/31/17 22:10 Ondansetron HCl (Zofran) 4 mg Q6H PRN IVP Nausea & Vomiting 10/11/17 16:45 11/10/17 16:44 Polyethylene Glycol (Miralax) 17 gm HSPRN PRN ORAL Constipation 10/11/17 16:45 11/10/17 16:44 Risperidone (RisperDAL) 1 mg BEDTIME ORAL 10/14/17 21:00 11/13/17 20:59 10/31/17 22:10 Sodium Hypochlorite (Dakin's Quarter Strength) 1 applic DAILY TOPIC 10/20/17 09:00 11/19/17 08:59 10/28/17 10:16 Tamsulosin HCl (Flomax) 0.4 mg BID ORAL 10/12/17 13:30 11/10/17 13:29 10/28/17 10:13 Tigecycline 50 mg/ Dextrose 110 ml @ 220 mls/hr Q12HR@0800,2000 IVPB 10/31/17 08:00 11/07/17 07:59 11/01/17 08:28 Vitamin B Complex/ Vit C/Folic Acid (Nephrovite) 1 tab DAILY ORAL 10/12/17 09:00 11/11/17 08:59 10/28/17 10:13 Vitamin D (Vitamin D) 2,000 intlu DAILY ORAL 10/22/17 09:00 11/21/17 08:59 10/30/17 08:59 LARON HERNANDEZ Nov 01, 2017 15:37
[2017-11-01 16:00] VITALS: BP 135/59
[2017-11-01] MEDS: Levemir Flexpen SUBQ SCH (18:00)
[2017-11-01] MEDS: Ertapenem 0.5 GM in NS 55 ML IVPB SCH (18:51)
[2017-11-01 20:00] VITALS: BP 140/70
[2017-11-01] MEDS: Dyna-Hex 2% Top Sol 2oz TOPIC SCH (20:00)
--- NOTE | 2017-11-01 20:51 | General Progress Note ---
Assessment/Plan Problem List: (1) Dementia with behavioral disturbance Assessment & Plan: Dementia with behavior disturbance and agitation. lacks capacity to make decisions lacks capacity to refuse meds PLAN: 1. Continue risperidone 1 mg at bedtime. 2. Continue Remeron 15 at bedtime. 3. Continue to follow and readjust the medications. ICD Codes: F03.91 - Unspecified dementia with behavioral disturbance SNOMED: 6005251752776 Assessment/Plan Dementia with behavior disturbance and agitation. lacks capacity to make decisions lacks capacity to refuse meds PLAN: 1. Continue risperidone 1 mg at bedtime. 2. Continue Remeron 15 at bedtime. 3. Continue to follow and readjust the medications. Subjective Date patient seen: Nov 01, 2017 Allergies: Coded Allergies: GABAPENTIN (Verified Allergy, Unknown, 10/11/17) OLIVE OIL (Verified Adverse Reaction, Severe, SPASM IN THE COLON, 01/18/14) PREGABALIN (Verified Adverse Reaction, Intermediate, "hypernervous", ) ACETAMINOPHEN (Verified Adverse Reaction, Mild, IRRITABILITY AND ELEVATED BLOOD PRESSURE, 01/18/14) IBUPROFEN (Verified Adverse Reaction, Mild, IRRITABILITY AND ELEVATED BLOOD PRESSURE, 01/18/14) Uncoded Allergies: SSRI (Allergy, Unknown, 10/11/17) Subjective refused all meds Objective Last 24 Hour Vital Signs Date Time Temp Pulse Resp B/P (MAP) Pulse Ox O2 Delivery O2 Flow Rate FiO2 11/01/17 20:00 97.9 89 20 140/70 96 97.9 11/01/17 16:00 97.9 65 20 135/59 93 Room Air 97.9 11/01/17 12:00 98.4 68 18 124/61 98.4 11/01/17 08:00 98.1 75 20 140/72 96 98.1 11/01/17 04:00 99.4 70 21 144/58 94 99.4 11/01/17 00:00 99.2 77 20 152/60 93 99.2 Intake and Output 10/31/17 11/01/17 19:00 07:00 Intake Total 140 ml 110 ml Output Total 333 ml 850 ml Balance -193 ml -740 ml Intake Oral 140 ml IV Total 110 ml Output Urine Total 200 ml 850 ml Post Void Residual 133 ml Bladder Scan Volume Amount 151-200 ml # Voids 2 Laboratory Tests 11/01/17 06:10: White Blood Count 11.8H, Red Blood Count 3.38L, Hemoglobin 8.4L, Hematocrit 26.4L, Mean Corpuscular Volume 78L, Mean Corpuscular Hemoglobin 25.0L, Mean Corpuscular Hemoglobin Concent 32.0, Red Cell Distribution Width 15.4H, Platelet Count 396, Mean Platelet Volume 5.7L, Neutrophils (%) (Auto) 82.0H, Lymphocytes (%) (Auto) 11.9L, Monocytes (%) (Auto) 3.5, Eosinophils (%) (Auto) 1.7, Basophils (%) (Auto) 0.8, Sodium Level 141, Potassium Level 4.3, Chloride Level 106, Carbon Dioxide Level 24, Anion Gap 11, Blood Urea Nitrogen 41H, Creatinine 2.5H, Estimat Glomerular Filtration Rate , Glucose Level 144H, Calcium Level 7.9L, Phosphorus Level 3.8, Magnesium Level 2.0 Height (Feet): 5 Height (Inches): 8.00 Weight (Pounds): 185 Milton Lancaster M.D. Nov 01, 2017 20:50
--- NOTE | 2017-11-01 22:21 | General Progress Note ---
Assessment/Plan Problem List: (1) Gram-negative bacteremia Assessment & Plan: Bacterioides fragilis bacteremia ICD Codes: R78.81 - Bacteremia SNOMED: 623376996103 (2) Sepsis ICD Codes: A41.9 - Sepsis, unspecified organism SNOMED: 69586526 (3) Progressive osteomyelitis of the posterior calcaneus (4) Cellulitis of left lower extremity ICD Codes: L03.116 - Cellulitis of left lower limb SNOMED: 535669964 (5) L heel diabetic ulcer with concern for osteomyelitis (6) Complete tear with retraction of the calcaneal tendon (7) MISHEL on CKD (8) CKD stage 3 (9) DM2 (diabetes mellitus, type 2) Assessment & Plan: A1C 9.9 ICD Codes: E11.9 - Type 2 diabetes mellitus without complications SNOMED: 42777507 (10) HTN (hypertension) ICD Codes: I10 - Essential (primary) hypertension SNOMED: 98902160 (11) Diabetic neuropathy ICD Codes: E11.40 - Type 2 diabetes mellitus with diabetic neuropathy, unspecified SNOMED: 97454115, 702192482, 241127046 (12) Diabetic nephropathy ICD Codes: E11.21 - Type 2 diabetes mellitus with diabetic nephropathy SNOMED: 19171859, 730824200 Qualifiers: Qualified Codes: E11.21 - Type 2 diabetes mellitus with diabetic nephropathy (13) Hyponatremia ICD Codes: E87.1 - Hypo-osmolality and hyponatremia SNOMED: 54583414 (14) Chronic diabetic ulcer right foot (15) Medical non-compliance ICD Codes: Z91.19 - Patient's noncompliance with other medical treatment and regimen SNOMED: 005766070 (16) Acute on chronic diastolic (congestive) heart failure ICD Codes: I50.33 - Acute on chronic diastolic (congestive) heart failure SNOMED: 59373157, 672738964 (17) fall with head trauma Status: stable Assessment/Plan Podiatry, ID, renal consulted s/p vanco (10/11-10/16) Cont ertapenem + tigecycline started per ID Will need total of 6 weeks of IV abx per ID given osteomyelitis - currently day # Daptomycin was d/c'd on 10/30 given elevated CK level s/p cefepime and flagyl (10/11-10/14) F/u cultures--blood culture showing GNR, wound culture showing Klebsiella and Proteus F/u repeat blood cultures--ngtd PICC line placed 10/17/17 Wound care per podiatry Check MRI L foot--shows progressive osteomyelitis, heel ulceration, soft tissue gas, complete tear of Achilles tendon s/p incision and drainage left foot, excisional debridement to the level of muscle left foot, and partial calcanectomy left foot on 10/13/17 NWB LLE Off wound vac now per podiatry Check renal U/S--shows bladder volume 337mL, refused connolly Flomax 0.4mg BID + finasteride 5mg daily Check TTE--EF 55-60% IVFs restarted per renal given rising SCr Pain control, bowel regimen Supportive care Appreciate psych consult Cont SNF meds ZENIA RODARTE once authorization for SNF obtained Pt unable to go home as he lives alone, 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 Disposition: Once the patient is stable to leave the hospital, I anticipate the patient will likely be discharged to the following environment: back to SNF Discussed with patient/family, nursing staff, SW/CM, podiatry, ID regarding clinical status, treatment course, and disposition planning. D/w ID re abx on d/ c. D/w podiatry re wound care, d/c plan. D/w CM re dispo Time of note may not reflect time of encounter Subjective Date patient seen: Nov 01, 2017 Time patient seen: 13:30 ROS Limited/Unobtainable: No Constitutional: Reports: weakness HEENT: Reports: no symptoms Cardiovascular: Reports: no symptoms Respiratory: Reports: no symptoms Gastrointestinal/Abdominal: Reports: no symptoms Genitourinary: Reports: no symptoms Neurologic/Psychiatric: Reports: no symptoms Endocrine: Reports: no symptoms Hematologic/Lymphatic: Reports: no symptoms Allergies: Coded Allergies: GABAPENTIN (Verified Allergy, Unknown, 10/11/17) OLIVE OIL (Verified Adverse Reaction, Severe, SPASM IN THE COLON, 01/18/14) PREGABALIN (Verified Adverse Reaction, Intermediate, "hypernervous", ) ACETAMINOPHEN (Verified Adverse Reaction, Mild, IRRITABILITY AND ELEVATED BLOOD PRESSURE, 01/18/14) IBUPROFEN (Verified Adverse Reaction, Mild, IRRITABILITY AND ELEVATED BLOOD PRESSURE, 01/18/14) Uncoded Allergies: SSRI (Allergy, Unknown, 10/11/17) Subjective No acute o/n events s/p incision and drainage left foot, excisional debridement to the level of muscle left foot, and partial calcanectomy left foot POD#19 Scr improving Awaiting authorization for SNF as pt's Medicare days have run out Pt is noncompliant with meds Pt feels depressed and frustrated that he is still here Pt c/o foot pain. More awake, alert. Denies n/v, d/c, chest pain, SOB, abd pain Objective Last 24 Hour Vital Signs Date Time Temp Pulse Resp B/P (MAP) Pulse Ox O2 Delivery O2 Flow Rate FiO2 11/01/17 20:00 97.9 89 20 140/70 96 97.9 11/01/17 16:00 97.9 65 20 135/59 93 Room Air 97.9 11/01/17 12:00 98.4 68 18 124/61 98.4 11/01/17 08:00 98.1 75 20 140/72 96 98.1 11/01/17 04:00 99.4 70 21 144/58 94 99.4 11/01/17 00:00 99.2 77 20 152/60 93 99.2 Intake and Output 10/31/17 11/01/17 19:00 07:00 Intake Total 140 ml 110 ml Output Total 333 ml 850 ml Balance -193 ml -740 ml Intake Oral 140 ml IV Total 110 ml Output Urine Total 200 ml 850 ml Post Void Residual 133 ml Bladder Scan Volume Amount 151-200 ml # Voids 2 Laboratory Tests 11/01/17 06:10: White Blood Count 11.8H, Red Blood Count 3.38L, Hemoglobin 8.4L, Hematocrit 26.4L, Mean Corpuscular Volume 78L, Mean Corpuscular Hemoglobin 25.0L, Mean Corpuscular Hemoglobin Concent 32.0, Red Cell Distribution Width 15.4H, Platelet Count 396, Mean Platelet Volume 5.7L, Neutrophils (%) (Auto) 82.0H, Lymphocytes (%) (Auto) 11.9L, Monocytes (%) (Auto) 3.5, Eosinophils (%) (Auto) 1.7, Basophils (%) (Auto) 0.8, Sodium Level 141, Potassium Level 4.3, Chloride Level 106, Carbon Dioxide Level 24, Anion Gap 11, Blood Urea Nitrogen 41H, Creatinine 2.5H, Estimat Glomerular Filtration Rate , Glucose Level 144H, Calcium Level 7.9L, Phosphorus Level 3.8, Magnesium Level 2.0 Height (Feet): 5 Height (Inches): 8.00 Weight (Pounds): 185 Objective General: alert, cooperative, no distress, appears stated age Head: normocephalic, without obvious abnormality, atraumatic Eyes: conjunctivae/corneas clear. PERRL, EOM's intact Throat: lips, mucosa, and tongue normal. MMM Neck: supple, symmetrical, trachea midline, and no JVD Lungs: clear to auscultation bilaterally Heart: regular rate and rhythm, S1, S2 normal, no murmur, click, rub or gallop Abdomen: soft, non-tender, non-distended, bowel sounds normal Extremities: extremities normal, atraumatic, no cyanosis, 1-2+ pitting edema BLE Pulses: 2+ and symmetric Skin: Left foot dressing c/d/i, Right foot dressing c/d/i Neurologic: grossly normal, no focal deficits Conner Orozco M.D. Nov 01, 2017 22:20
[2017-11-02 04:00] VITALS: BP 142/59
[2017-11-02] MEDS: oxyCONTIN 10mg tab ORAL SCH ×3 (05:44→21:55)
[2017-11-02] MEDS: NovoLOG Insulin Flexpen SUBQ SCH ×4 (05:48→20:52)
[2017-11-02 08:00] VITALS: BP_SYST 101; BP_SYST 135; BP_DIAS 58; BP_DIAS 67
[2017-11-02] MEDS: Tamsulosin 0.4mg cap ORAL SCH ×3 (09:00→18:00)
[2017-11-02] MEDS: Heparin 5000 units/ml inj SUBQ SCH ×2 (09:00→20:30)
[2017-11-02] MEDS: Docusate 100mg cap ORAL SCH ×4 (09:00→18:24)
[2017-11-02] MEDS: Doxazosin 1mg Tab ORAL SCH ×3 (09:00→18:24)
[2017-11-02] MEDS: Nephrovite tab (Rena-Vite) ORAL SCH (10:10)
[2017-11-02] MEDS: Tigecycline 50mg in D5W 110ml IVPB SCH ×2 (10:11→20:43)
[2017-11-02] MEDS: Vitamin D 1000 IU Tab ORAL SCH (10:11)
[2017-11-02] MEDS: Ascorbic Acid 500mg tab ORAL SCH (10:11)
[2017-11-02] MEDS: Dakin's 0.125% Soln (Quarter Strength) 16oz TOPIC SCH (10:12)
[2017-11-02] MEDS: Analgesic Balm 15gm TOPIC SCH ×2 (10:15→18:24)
--- NOTE | 2017-11-02 11:20 | Nephrology Progress Note ---
Assessment/Plan Problem List: (1) HTN (hypertension) (2) Diabetes mellitus (3) Ulcer of left heel (4) Renal insufficiency Assessment cr carlos above 3 now gradually lowering Foot ulcer, left left leg cellulitis, left heel ulcer, ? osteo, leukocytosis, lgt Renal insufficiency acute vs chronic Cr lowering now 1.5 Urinary retention: REFUSES CONNOLLY Anemia UTI Plan refuses connolly fluid challenge Avoid Nephrotoxics Keep BP in check monitor renal parameters Anemia henry urine studies flomax start cardura Kid[facility] Unremarkable kidneys. Negative for hydronephrosis Note inability of the patient to void with a bladder volume of 337 mL 2D echo :Left ventricular ejection fraction estimated to be 55-60%. No evidence of left ventricular hypertrophy. Subjective ROS Limited/Unobtainable: No Objective Objective Last 24 Hour Vital Signs Date Time Temp Pulse Resp B/P (MAP) Pulse Ox O2 Delivery O2 Flow Rate FiO2 11/02/17 08:00 97.9 62 20 135/58 95 Room Air 97.9 11/02/17 08:00 97.5 57 19 101/67 96 97.5 11/02/17 04:00 98.1 83 18 142/59 97 98.1 11/01/17 20:00 97.9 89 20 140/70 96 97.9 11/01/17 16:00 97.9 65 20 135/59 93 Room Air 97.9 11/01/17 12:00 98.4 68 18 124/61 98.4 Intake and Output 11/01/17 11/02/17 19:00 07:00 Intake Total 240 ml 815 ml Balance 240 ml 815 ml Intake Oral 240 ml 650 ml IV Total 165 ml # Voids 2 7 Height (Feet): 5 Height (Inches): 8.00 Weight (Pounds): 185 General Appearance: no apparent distress, lethargic Cardiovascular: normal rate Respiratory/Chest: decreased breath sounds Abdomen: distended Objective no other changes IHSAN REGALADO Nov 02, 2017 11:20
--- NOTE | 2017-11-02 11:21 | General Progress Note ---
Assessment/Plan Assessment/Plan #. Encephalopathy. --> Pt unable to take care of self. Refuses to go home. Pending placement in SNF. --> Refused all meds today. Noncompliant #. Anemia due to underlying chronic disease. --> Continue to closely monitor and trend. Hemoglobin goal is above 7 --> anemia workup reviewed. Iron 9, TIBC 127, B12 1791, Folate 41 --> Hemoglobin has been above goal, no prbc needed. --> Has been refusing blood draws past few days. #. Anemia of iron deficiency, potentially secondary to osteomyelitis. --> Monitor closely. Trend cbc. --> On iron supplement #. Anemia due to underlying kidney disease. --> Closely monitor, again improving. #. Leukocytosis, status post debridement, gram-negative jasmyn infection noted. --> Resolved. --> Remains on meropenem. Monitor closely. --> Infectious Disease Service following. #. Thrombocytosis, likely reactive process from underlying anemia, closely monitor for improvement. --> Resolved. #. Elevated creatinine, chronic kidney disease. #. Diabetes mellitus, on insulin sliding scale as needed as per primary team. #. Diastolic dysfunction. DC planning for SNF. Patient unable to take care of self at home. Subjective Date patient seen: Nov 01, 2017 Constitutional: Denies: no symptoms, chills, diaphoresis, fever, malaise, weakness, other HEENT: Denies: no symptoms, eye pain, blurred vision, tearing, double vision, ear pain, ear discharge, nose pain, nose congestion, throat pain, throat swelling, mouth pain, mouth swelling, other Cardiovascular: Denies: no symptoms, chest pain, edema, irregular heart rate, lightheadedness, palpitations, syncope, other Respiratory: Denies: no symptoms, cough, orthopnea, shortness of breath, SOB with excertion, SOB at rest, sputum, stridor, wheezing, other Gastrointestinal/Abdominal: Denies: no symptoms, abdomen distended, abdominal pain, black stools, tarry stools, blood in stool, constipated, diarrhea, difficulty swallowing, nausea, poor appetite, poor fluid intake, rectal bleeding , vomiting, other Genitourinary: Denies: no symptoms, burning, discharge, frequency, flank pain, hematuria, incontinence, pain, urgency, other Neurologic/Psychiatric: Denies: no symptoms, anxiety, depressed, emotional problems, headache, numbness, paresthesia, pre-existing deficit, seizure, tingling, tremors, weakness, other Hematologic/Lymphatic: Reports: anemia Allergies: Coded Allergies: GABAPENTIN (Verified Allergy, Unknown, 10/11/17) OLIVE OIL (Verified Adverse Reaction, Severe, SPASM IN THE COLON, 01/18/14) PREGABALIN (Verified Adverse Reaction, Intermediate, "hypernervous", ) ACETAMINOPHEN (Verified Adverse Reaction, Mild, IRRITABILITY AND ELEVATED BLOOD PRESSURE, 01/18/14) IBUPROFEN (Verified Adverse Reaction, Mild, IRRITABILITY AND ELEVATED BLOOD PRESSURE, 01/18/14) Uncoded Allergies: SSRI (Allergy, Unknown, 10/11/17) Subjective Confused. Noncompliant with treatment and meds. Objective Last 24 Hour Vital Signs Date Time Temp Pulse Resp B/P (MAP) Pulse Ox O2 Delivery O2 Flow Rate FiO2 11/02/17 08:00 97.9 62 20 135/58 95 Room Air 97.9 11/02/17 08:00 97.5 57 19 101/67 96 97.5 11/02/17 04:00 98.1 83 18 142/59 97 98.1 11/01/17 20:00 97.9 89 20 140/70 96 97.9 11/01/17 16:00 97.9 65 20 135/59 93 Room Air 97.9 11/01/17 12:00 98.4 68 18 124/61 98.4 Intake and Output 11/01/17 11/02/17 19:00 07:00 Intake Total 240 ml 815 ml Balance 240 ml 815 ml Intake Oral 240 ml 650 ml IV Total 165 ml # Voids 2 7 Height (Feet): 5 Height (Inches): 8.00 Weight (Pounds): 185 General Appearance: confused Respiratory/Chest: decreased breath sounds Abdomen: soft Giovany Wiggins MD Nov 02, 2017 11:21
[2017-11-02 11:48] VITALS: BP 134/62
[2017-11-02] MEDS ORDERED: INVANZ1 GM IVPB (13:47)
[2017-11-02] MEDS ORDERED: TIGECYCLINE50 MG IV (13:47)
[2017-11-02 16:00] VITALS: BP 126/53
[2017-11-02] MEDS: Ertapenem 0.5 GM in NS 55 ML IVPB SCH (16:55)
[2017-11-02] MEDS ORDERED: Tubing IV Secondary IV ONE ×2 (17:11→22:45)
[2017-11-02] MEDS: Levemir Flexpen SUBQ SCH (18:00)
[2017-11-02] MEDS: Dyna-Hex 2% Top Sol 2oz TOPIC SCH (20:00)
--- NOTE | 2017-11-02 22:42 | General Progress Note ---
Assessment/Plan Problem List: (1) Dementia with behavioral disturbance Assessment & Plan: Dementia with behavior disturbance and agitation. lacks capacity to make decisions lacks capacity to refuse meds PLAN: 1. Continue risperidone 1 mg at bedtime. 2. Continue Remeron 15 at bedtime. 3. Continue to follow and readjust the medications. ICD Codes: F03.91 - Unspecified dementia with behavioral disturbance SNOMED: [id number] Assessment/Plan Dementia with behavior disturbance and agitation. lacks capacity to make decisions lacks capacity to refuse meds PLAN: 1. Continue risperidone 1 mg at bedtime. 2. Continue Remeron 15 at bedtime. 3. Continue to follow and readjust the medications. Subjective Date patient seen: Nov 02, 2017 Allergies: Coded Allergies: GABAPENTIN (Verified Allergy, Unknown, 10/11/17) OLIVE OIL (Verified Adverse Reaction, Severe, SPASM IN THE COLON, 01/18/14) PREGABALIN (Verified Adverse Reaction, Intermediate, "hypernervous", ) ACETAMINOPHEN (Verified Adverse Reaction, Mild, IRRITABILITY AND ELEVATED BLOOD PRESSURE, 01/18/14) IBUPROFEN (Verified Adverse Reaction, Mild, IRRITABILITY AND ELEVATED BLOOD PRESSURE, 01/18/14) Uncoded Allergies: SSRI (Allergy, Unknown, 10/11/17) Subjective refused some meds irritable Objective Last 24 Hour Vital Signs Date Time Temp Pulse Resp B/P (MAP) Pulse Ox O2 Delivery O2 Flow Rate FiO2 11/02/17 16:00 97.3 72 21 126/53 99 Room Air 97.3 11/02/17 11:48 98.1 70 12 134/62 94 Room Air 98.1 11/02/17 08:00 97.9 62 20 135/58 95 Room Air 97.9 11/02/17 08:00 97.5 57 19 101/67 96 97.5 11/02/17 04:00 98.1 83 18 142/59 97 98.1 Intake and Output 11/01/17 11/02/17 19:00 07:00 Intake Total 240 ml 815 ml Balance 240 ml 815 ml Intake Oral 240 ml 650 ml IV Total 165 ml # Voids 2 7 Height (Feet): 5 Height (Inches): 8.00 Weight (Pounds): 185 General Appearance: no apparent distress, alert Milton Lancaster M.D. Nov 02, 2017 22:42
[2017-11-02] MEDS ORDERED: NS 500ML ONE (22:45)
[2017-11-03] VITALS: BP 150/70
[2017-11-03 04:00] VITALS: BP 152/57
[2017-11-03] MEDS: oxyCONTIN 10mg tab ORAL SCH ×3 (06:17→21:45)
[2017-11-03] MEDS: NovoLOG Insulin Flexpen SUBQ SCH ×4 (06:23→21:24)
[2017-11-03 08:00] VITALS: BP 148/58
[2017-11-03 08:07] LABS: BASOPHILS % (AUTO) 1.6 % (0.0-2.0); EOSINOPHILS % (AUTO) 9.4 % (0.0-3.0); HEMATOCRIT 26.2 % (42.0-52.0); HEMOGLOBIN 8.3 G/DL (14.2-18.0); LYMPHOCYTES % (AUTO) 25.9 % (20.0-45.0); MEAN CORPUSCULAR VOLUME 78 FL (80-99); MONOCYTES % (AUTO) 6.6 % (1.0-10.0); NEUTROPHILS % (AUTO) 56.6 % (45.0-75.0); PLATELET COUNT 379 K/UL (150-450); RED BLOOD COUNT 3.34 M/UL (4.70-6.10); RED CELL DISTRIBUTION WIDTH 15.4 % (11.6-14.8); WHITE BLOOD COUNT 8.7 K/UL (4.8-10.8)
[2017-11-03 08:29] LABS: ANION GAP 9 mmol/L (5-15); BLOOD UREA NITROGEN 48 mg/dL (7-18); CALCIUM 7.8 MG/DL (8.5-10.1); CARBON DIOXIDE 26 MMOL/L (21-32); CHLORIDE 108 MMOL/L (98-107); CREATININE 1.9 MG/DL (0.55-1.30); POTASSIUM 3.9 MMOL/L (3.5-5.1); SODIUM 143 MMOL/L (136-145)
[2017-11-03] MEDS: Heparin 5000 units/ml inj SUBQ SCH ×2 (09:00→21:00)
[2017-11-03] MEDS: Ascorbic Acid 500mg tab ORAL SCH (09:00)
[2017-11-03] MEDS: Doxazosin 1mg Tab ORAL SCH ×2 (09:00→18:10)
[2017-11-03] MEDS: Tamsulosin 0.4mg cap ORAL SCH ×2 (09:00→18:10)
[2017-11-03] MEDS: Docusate 100mg cap ORAL SCH ×3 (09:23→18:10)
[2017-11-03] MEDS: Vitamin D 1000 IU Tab ORAL SCH (09:24)
[2017-11-03] MEDS: Nephrovite tab (Rena-Vite) ORAL SCH (09:24)
[2017-11-03] MEDS: Tigecycline 50mg in D5W 110ml IVPB SCH ×2 (09:24→21:22)
[2017-11-03] MEDS: Dakin's 0.125% Soln (Quarter Strength) 16oz TOPIC SCH (09:25)
[2017-11-03] MEDS: Analgesic Balm 15gm TOPIC SCH ×2 (09:25→18:10)
[2017-11-03 09:50] LABS: ALANINE AMINOTRANSFERASE 23 U/L (12-78); ALBUMIN 2.4 G/DL (3.4-5.0); ALKALINE PHOSPHATASE 77 U/L (46-116); ASPARTATE AMINO TRANSFERASE 28 U/L (15-37); BILIRUBIN,DIRECT 0.2 MG/DL (0.0-0.3); BILIRUBIN,TOTAL 0.7 MG/DL (0.2-1.0); PHOSPHORUS 3.8 MG/DL (2.5-4.9)
--- NOTE | 2017-11-03 11:23 | Podiatric Progress Note ---
Assessment/Plan Patient Hank Nava is a 72 year old male who was admitted on Oct 11, 2017 at 15:22 with Assessment/Plan A/ 1) Cellulitis left lower extremity - resolved 2) Chronic diabetic ulcer left heel with osteomyelitis 3) DM with Diabetic Neuropathy 4) Chronic diabetic ulcer right foot 5) Charcot deformity right foot 6) Obesity 7) Difficulty walking 8) Dementia P/ 1) S/p debridement and partial calcanectomy on 10/13/2017. Hold Wound VAC. Cont wet to dry with Dakin's solution. Will continue with limb salvage. 2) Abx per ID - VRE. Patient is improving. 3) Will follow, pending discharge once HMO auth obtained for SNF placement. 4) May benefit from serial debridements. Subjective Allergies: Coded Allergies: GABAPENTIN (Verified Allergy, Unknown, 10/11/17) OLIVE OIL (Verified Adverse Reaction, Severe, SPASM IN THE COLON, 01/18/14) PREGABALIN (Verified Adverse Reaction, Intermediate, "hypernervous", ) ACETAMINOPHEN (Verified Adverse Reaction, Mild, IRRITABILITY AND ELEVATED BLOOD PRESSURE, 01/18/14) IBUPROFEN (Verified Adverse Reaction, Mild, IRRITABILITY AND ELEVATED BLOOD PRESSURE, 01/18/14) Uncoded Allergies: SSRI (Allergy, Unknown, 10/11/17) Subjective Patient states that his pain is improved. He has noticed swelling is better. He is concerned about his belongings at the SNF he came from . Objective Exam Last 24 Hour Vital Signs Date Time Temp Pulse Resp B/P (MAP) Pulse Ox O2 Delivery O2 Flow Rate FiO2 11/03/17 08:00 98.1 56 18 148/58 96 Room Air 98.1 11/03/17 04:00 Room Air 11/03/17 04:00 98.6 66 20 152/57 94 Room Air 98.6 11/03/17 00:00 98.1 68 18 150/70 98 Room Air 98.1 11/02/17 16:00 97.3 72 21 126/53 99 Room Air 97.3 11/02/17 11:48 98.1 70 12 134/62 94 Room Air 98.1 Laboratory Tests Test 11/03/17 06:30 White Blood Count 8.7 K/UL (4.8-10.8) Red Blood Count 3.34 M/UL (4.70-6.10) L Hemoglobin 8.3 G/DL (14.2-18.0) L Hematocrit 26.2 % (42.0-52.0) L Mean Corpuscular Volume 78 FL (80-99) L Mean Corpuscular Hemoglobin 24.8 PG (27.0-31.0) L Mean Corpuscular Hemoglobin Concent 31.6 G/DL (32.0-36.0) L Red Cell Distribution Width 15.4 % (11.6-14.8) H Platelet Count 379 K/UL (150-450) Mean Platelet Volume 5.6 FL (6.5-10.1) L Neutrophils (%) (Auto) 56.6 % (45.0-75.0) Lymphocytes (%) (Auto) 25.9 % (20.0-45.0) Monocytes (%) (Auto) 6.6 % (1.0-10.0) Eosinophils (%) (Auto) 9.4 % (0.0-3.0) H Basophils (%) (Auto) 1.6 % (0.0-2.0) Sodium Level 143 MMOL/L (136-145) Potassium Level 3.9 MMOL/L (3.5-5.1) Chloride Level 108 MMOL/L (98-107) H Carbon Dioxide Level 26 MMOL/L (21-32) Anion Gap 9 mmol/L (5-15) Blood Urea Nitrogen 48 mg/dL (7-18) H Creatinine 1.9 MG/DL (0.55-1.30) H Estimat Glomerular Filtration Rate mL/min (>60) Glucose Level 109 MG/DL (74-106) H Uric Acid 9.1 MG/DL (2.6-7.2) H Calcium Level 7.8 MG/DL (8.5-10.1) L Phosphorus Level 3.8 MG/DL (2.5-4.9) Magnesium Level 2.1 MG/DL (1.8-2.4) Total Bilirubin 0.7 MG/DL (0.2-1.0) Direct Bilirubin 0.2 MG/DL (0.0-0.3) Aspartate Amino Transf (AST/SGOT) 28 U/L (15-37) Alanine Aminotransferase (ALT/SGPT) 23 U/L (12-78) Alkaline Phosphatase 77 U/L (46-116) Total Protein 6.4 G/DL (6.4-8.2) Albumin 2.4 G/DL (3.4-5.0) L Microbiology Date/Time Source Procedure Growth Status 10/14/17 08:50 Blood Blood Culture - Final NO GROWTH AFTER 5 DAYS Complete 10/11/17 17:00 Nasal Nares MRSA Culture - Final NO METHICILLIN RESISTANT STAPH AUREUS... Complete 10/30/17 04:15 Urine,Clean Catch Urine Culture - Final Jessie Albicans Complete 10/13/17 19:20 Foot Left Gram Stain - Final Complete 10/13/17 19:20 Aerobic Culture - Final Klebsiella Pneumoniae Proteus Mirabilis Enterococcus Faecium - Vre Complete 10/13/17 19:20 Foot Left Anaerobic Culture - Final NO ANAEROBES ISOLATED Complete Dermatological Wound Assessment : Exudate Amount: Moderate Dermatological Narrative right leg and plantar right foot ulcers have resolved. Edema has reduced. Erythema has resolved. Left heel wound is 80% granular, 20% slough. No signs of acute infection. Bone is exposed but granulation tissue is present over bone. Raymundo Velasquez DPM Nov 03, 2017 11:23
[2017-11-03 11:54] VITALS: BP 139/62
--- NOTE | 2017-11-03 12:06 | General Progress Note ---
Assessment/Plan Assessment/Plan #. Encephalopathy. --> Pt unable to take care of self. Refuses to go home. Pending placement in SNF. --> Refusing some meds and treatment. #. Anemia due to underlying chronic disease. --> Continue to closely monitor and trend. Hemoglobin goal is above 7 --> anemia workup reviewed. Iron 9, TIBC 127, B12 1791, Folate 41 --> Hemoglobin has been above goal, no prbc needed. #. Anemia of iron deficiency, potentially secondary to osteomyelitis. --> Monitor closely. Trend cbc. --> On iron supplement #. Anemia due to underlying kidney disease. --> Closely monitor, again improving. #. Leukocytosis, status post debridement, gram-negative jasmyn infection noted. --> Resolved. --> Remains on meropenem. Monitor closely. --> Infectious Disease Service following. #. Thrombocytosis, likely reactive process from underlying anemia, closely monitor for improvement. --> Resolved. #. Elevated creatinine, chronic kidney disease. #. Diabetes mellitus, on insulin sliding scale as needed as per primary team. #. Diastolic dysfunction. DC planning for SNF. Patient unable to take care of self at home. Subjective Date patient seen: Nov 02, 2017 Constitutional: Denies: no symptoms, chills, diaphoresis, fever, malaise, weakness, other HEENT: Denies: no symptoms, eye pain, blurred vision, tearing, double vision, ear pain, ear discharge, nose pain, nose congestion, throat pain, throat swelling, mouth pain, mouth swelling, other Cardiovascular: Denies: no symptoms, chest pain, edema, irregular heart rate, lightheadedness, palpitations, syncope, other Respiratory: Denies: no symptoms, cough, orthopnea, shortness of breath, SOB with excertion, SOB at rest, sputum, stridor, wheezing, other Gastrointestinal/Abdominal: Denies: no symptoms, abdomen distended, abdominal pain, black stools, tarry stools, blood in stool, constipated, diarrhea, difficulty swallowing, nausea, poor appetite, poor fluid intake, rectal bleeding , vomiting, other Genitourinary: Denies: no symptoms, burning, discharge, frequency, flank pain, hematuria, incontinence, pain, urgency, other Neurologic/Psychiatric: Denies: no symptoms, anxiety, depressed, emotional problems, headache, numbness, paresthesia, pre-existing deficit, seizure, tingling, tremors, weakness, other Allergies: Coded Allergies: GABAPENTIN (Verified Allergy, Unknown, 10/11/17) OLIVE OIL (Verified Adverse Reaction, Severe, SPASM IN THE COLON, 01/18/14) PREGABALIN (Verified Adverse Reaction, Intermediate, "hypernervous", ) ACETAMINOPHEN (Verified Adverse Reaction, Mild, IRRITABILITY AND ELEVATED BLOOD PRESSURE, 01/18/14) IBUPROFEN (Verified Adverse Reaction, Mild, IRRITABILITY AND ELEVATED BLOOD PRESSURE, 01/18/14) Uncoded Allergies: SSRI (Allergy, Unknown, 10/11/17) Subjective Remains confused. Agitated. Refusing some meds. Objective Last 24 Hour Vital Signs Date Time Temp Pulse Resp B/P (MAP) Pulse Ox O2 Delivery O2 Flow Rate FiO2 11/03/17 11:54 97.8 57 19 139/62 Room Air 97.8 11/03/17 08:00 98.1 56 18 148/58 96 Room Air 98.1 11/03/17 04:00 Room Air 11/03/17 04:00 98.6 66 20 152/57 94 Room Air 98.6 11/03/17 00:00 98.1 68 18 150/70 98 Room Air 98.1 11/02/17 16:00 97.3 72 21 126/53 99 Room Air 97.3 Intake and Output 11/02/17 11/03/17 19:00 07:00 Intake Total 480 ml Output Total 200 ml Balance 480 ml -200 ml Intake Oral 480 ml Output Urine Total 200 ml # Voids 3 2 Laboratory Tests 11/03/17 06:30: White Blood Count 8.7, Red Blood Count 3.34L, Hemoglobin 8.3L, Hematocrit 26.2L , Mean Corpuscular Volume 78L, Mean Corpuscular Hemoglobin 24.8L, Mean Corpuscular Hemoglobin Concent 31.6L, Red Cell Distribution Width 15.4H, Platelet Count 379, Mean Platelet Volume 5.6L, Neutrophils (%) (Auto) 56.6, Lymphocytes (%) (Auto) 25.9, Monocytes (%) (Auto) 6.6, Eosinophils (%) (Auto) 9.4H, Basophils (%) (Auto) 1.6, Sodium Level 143, Potassium Level 3.9, Chloride Level 108H, Carbon Dioxide Level 26, Anion Gap 9, Blood Urea Nitrogen 48H, Creatinine 1.9H, Estimat Glomerular Filtration Rate , Glucose Level 109H, Uric Acid 9.1H, Calcium Level 7.8L, Phosphorus Level 3.8, Magnesium Level 2.1, Total Bilirubin 0.7, Direct Bilirubin 0.2, Aspartate Amino Transf (AST/SGOT) 28, Alanine Aminotransferase (ALT/SGPT) 23, Alkaline Phosphatase 77, Total Protein 6.4, Albumin 2.4L Height (Feet): 5 Height (Inches): 8.00 Weight (Pounds): 185 General Appearance: confused Respiratory/Chest: decreased breath sounds Abdomen: soft Giovany Wiggins MD Nov 03, 2017 12:06
--- NOTE | 2017-11-03 14:47 | Infectious Diseases Prog Note ---
Assessment/Plan Assessment/Plan ASSESSMENT AND PLAN: 1. bacteroides bacteremia, proteus/klebsiella/vre left heel/foot wound infection and osteomyelitis on MRI, sepsis, leukocytosis, ? fungal uti - elevated CK noted, ? secondary to fall vs daptomycin - s/p debridement, debridement as needed per podiatry - leg redness better, chronic edema - clinically better, podiatry note reviewed and wounds and cellulitis improving - continue wound care per podiatry - f/u labs, surveillance blood cultures negative - invanz and tygecycline for now, because of elevated ck, may rechallenge with daptomycin at later date - abx started on 10/14, plan on 6 week course - day #20/ - vre colonized - fungal uti s/p diflucan 2. Elevated creatinine, chronic renal failure, acute kidney injury, elevated ck , s/p fall, ? rhabdomyolysis 3. Anemia. 4. The patient with history of diabetes. 5. Hypertension. 6. Blood sugar and blood pressure treatment per primary. 7. Benign prostatic hypertrophy. 8. Atherosclerotic cardiovascular disease. 9. Chronic diastolic congestive heart failure. 10. Anemia. 11. Dizziness, headaches, weakness, and fatigue. 12. Allergies, acetaminophen, gabapentin, ibuprofen, Elavil, pregabalin, and selective serotonin reuptake inhibitors. 13. Social history negative. 14. Family history noncontributory. 15. MAR was noted. 16. Case discussed with RN. 17. Continue treatment per primary consultants. 18. Orders were entered. 19. Notes and records noted. Subjective Constitutional: Denies: fever HEENT: Denies: congestion Respiratory: Denies: shortness of breath Cardiovascular: Denies: chest pain Gastrointestinal/Abdominal: Denies: nausea, vomiting, diarrhea Genitourinary: Denies: dysuria, hematuria, frequency Neurologic: Denies: headache, numbness, weakness Skin: Denies: rash Hematologic: Denies: bleeding Musculoskeletal: Denies: pain Allergies: Coded Allergies: GABAPENTIN (Verified Allergy, Unknown, 10/11/17) OLIVE OIL (Verified Adverse Reaction, Severe, SPASM IN THE COLON, 01/18/14) PREGABALIN (Verified Adverse Reaction, Intermediate, "hypernervous", ) ACETAMINOPHEN (Verified Adverse Reaction, Mild, IRRITABILITY AND ELEVATED BLOOD PRESSURE, 01/18/14) IBUPROFEN (Verified Adverse Reaction, Mild, IRRITABILITY AND ELEVATED BLOOD PRESSURE, 01/18/14) Uncoded Allergies: SSRI (Allergy, Unknown, 10/11/17) Objective Vital Signs Last 24 Hour Vital Signs Date Time Temp Pulse Resp B/P (MAP) Pulse Ox O2 Delivery O2 Flow Rate FiO2 11/03/17 11:54 97.8 57 19 139/62 Room Air 97.8 11/03/17 08:00 98.1 56 18 148/58 96 Room Air 98.1 11/03/17 04:00 Room Air 11/03/17 04:00 98.6 66 20 152/57 94 Room Air 98.6 11/03/17 00:00 98.1 68 18 150/70 98 Room Air 98.1 11/02/17 16:00 97.3 72 21 126/53 99 Room Air 97.3 Height (Feet): 5 Height (Inches): 8.00 Weight (Pounds): 185 General Appearance: no acute distress HEENT: normocephalic, atraumatic, anicteric, mucous membranes moist Respiratory/Chest: lungs clear, normal breath sounds, no accessory muscle use, respiratory distress Cardiovascular: normal rate, regular rhythm, no gallop/murmur, no JVD Abdomen: normal bowel sounds, soft, non tender, no organomegaly, non distended Genitourinary: other - no connolly Extremities: no cyanosis, other - left leg with swelling but no warmth Skin: no rash, other - wound covered, podiatry note reviewed Neurologic/Psychiatric: supervisor grove II-XII grossly normal, alert, oriented x 3, responsive Lymphatic: no neck adenopathy Musculoskeletal: no effusion Objective Chest x-ray - Impression: Bibasilar atelectasis and elevation of the right hemidiaphragm. No acute process otherwise. MRI left foot and ankle - Impression: Positive for progressive osteomyelitis of the posterior calcaneus, since prior study of 08/02/2017 Increasing ulceration of the overlying soft tissues, with possible exposure of the medial aspect of the calcaneal tuberosity. Small amount of gas within the medial soft tissues,. The related open wound or could indicate infection by gas-forming organism Complete tear with retraction of the calcaneal tendon, as described. Fluid in the tibiotalar joint. Probably reactive secondary to the above Diffuse edema of the subcutaneous fat. This could be due to cellulitis or could be related to hemodynamic abnormalities Other findings as noted Findings discussed by phone with Dr. Prieto at the time of interpretation Microbiology Date/Time Source Procedure Growth Status 10/14/17 08:50 Blood Blood Culture - Final NO GROWTH AFTER 5 DAYS Complete 10/11/17 17:00 Nasal Nares MRSA Culture - Final NO METHICILLIN RESISTANT STAPH AUREUS... Complete 10/30/17 04:15 Urine,Clean Catch Urine Culture - Final Jessie Albicans Complete 10/13/17 19:20 Foot Left Gram Stain - Final Complete 10/13/17 19:20 Aerobic Culture - Final Klebsiella Pneumoniae Proteus Mirabilis Enterococcus Faecium - Vre Complete 10/13/17 19:20 Foot Left Anaerobic Culture - Final NO ANAEROBES ISOLATED Complete Laboratory Tests Test 11/03/17 06:30 White Blood Count 8.7 K/UL (4.8-10.8) Red Blood Count 3.34 M/UL (4.70-6.10) L Hemoglobin 8.3 G/DL (14.2-18.0) L Hematocrit 26.2 % (42.0-52.0) L Mean Corpuscular Volume 78 FL (80-99) L Mean Corpuscular Hemoglobin 24.8 PG (27.0-31.0) L Mean Corpuscular Hemoglobin Concent 31.6 G/DL (32.0-36.0) L Red Cell Distribution Width 15.4 % (11.6-14.8) H Platelet Count 379 K/UL (150-450) Mean Platelet Volume 5.6 FL (6.5-10.1) L Neutrophils (%) (Auto) 56.6 % (45.0-75.0) Lymphocytes (%) (Auto) 25.9 % (20.0-45.0) Monocytes (%) (Auto) 6.6 % (1.0-10.0) Eosinophils (%) (Auto) 9.4 % (0.0-3.0) H Basophils (%) (Auto) 1.6 % (0.0-2.0) Sodium Level 143 MMOL/L (136-145) Potassium Level 3.9 MMOL/L (3.5-5.1) Chloride Level 108 MMOL/L (98-107) H Carbon Dioxide Level 26 MMOL/L (21-32) Anion Gap 9 mmol/L (5-15) Blood Urea Nitrogen 48 mg/dL (7-18) H Creatinine 1.9 MG/DL (0.55-1.30) H Estimat Glomerular Filtration Rate mL/min (>60) Glucose Level 109 MG/DL (74-106) H Uric Acid 9.1 MG/DL (2.6-7.2) H Calcium Level 7.8 MG/DL (8.5-10.1) L Phosphorus Level 3.8 MG/DL (2.5-4.9) Magnesium Level 2.1 MG/DL (1.8-2.4) Total Bilirubin 0.7 MG/DL (0.2-1.0) Direct Bilirubin 0.2 MG/DL (0.0-0.3) Aspartate Amino Transf (AST/SGOT) 28 U/L (15-37) Alanine Aminotransferase (ALT/SGPT) 23 U/L (12-78) Alkaline Phosphatase 77 U/L (46-116) Total Protein 6.4 G/DL (6.4-8.2) Albumin 2.4 G/DL (3.4-5.0) L Current Medications Medications (Trade) Dose Ordered Sig/Dari Route PRN Reason Start Time Stop Time Status Last Admin Dose Admin Acetaminophen (Tylenol) 650 mg Q4H PRN ORAL Mild Pain (Scale 1-3), fever 10/11/17 16:45 11/10/17 16:44 Ascorbic Acid (Vitamin C) 500 mg DAILY ORAL 10/25/17 09:00 11/24/17 08:59 11/02/17 10:11 Bisacodyl (Dulcolax) 10 mg HSPRN PRN RECTAL Constipation 10/11/17 17:15 11/10/17 17:14 Chlorhexidine Gluconate (Sarah-Hex 2%) 1 applic DAILY@1999 TOPIC 10/31/17 20:00 11/30/17 19:59 Clotrimazole (Lotrimin) 1 applic EVERY 12 HOURS TOPIC 10/14/17 21:00 11/13/17 20:59 11/03/17 09:25 Dextrose (Dextrose 50%) STAT PRN IV Hypoglycemia 10/11/17 16:45 11/10/17 16:44 Diphenhydramine HCl (Benadryl) 25 mg Q6H PRN ORAL Itching 10/22/17 23:45 4/9/18 23:44 10/23/17 04:04 Docusate Sodium (Colace) 100 mg TID ORAL 10/12/17 13:30 11/10/17 13:29 11/03/17 14:12 Doxazosin Mesylate (Cardura) 2 mg BID ORAL 11/02/17 18:00 11/15/17 12:59 11/02/17 18:24 Ertapenem 0.5 gm/ Sodium Chloride 55 ml @ 110 mls/hr Q24H IVPB 10/31/17 16:00 11/05/17 15:59 11/02/17 16:55 Finasteride (Proscar) 5 mg DAILY ORAL 10/12/17 09:00 11/11/17 08:59 11/03/17 09:23 Heparin Sodium (Porcine) (Heparin 5000 units/ml) 5,000 units EVERY 12 HOURS SUBQ 10/11/17 21:00 11/10/17 20:59 10/24/17 22:35 Insulin Aspart (NovoLOG) BEFORE MEALS AND HS SUBQ 10/11/17 21:00 11/10/17 20:59 11/03/17 12:32 Insulin Detemir (Levemir) 12 units Q24H SUBQ 10/16/17 18:00 11/15/17 17:59 10/30/17 17:39 Menthol/Methyl Salicylate (Bengay) 1 applic BID TOPIC 10/18/17 20:00 11/17/17 19:59 11/03/17 09:25 Mirtazapine (Remeron) 15 mg BEDTIME ORAL 10/11/17 21:00 11/10/17 20:59 10/28/17 22:04 Ondansetron HCl (Zofran) 4 mg Q6H PRN IVP Nausea & Vomiting 10/11/17 16:45 11/10/17 16:44 Oxycodone HCl (OxyCONTIN) 10 mg EVERY 8 HOURS ORAL 11/01/17 22:00 11/08/17 21:59 11/03/17 14:09 Oxycodone HCl (Roxicodone) 5 mg Q3H PRN ORAL Breakthrough Pain 11/01/17 20:45 11/08/17 20:44 Polyethylene Glycol (Miralax) 17 gm HSPRN PRN ORAL Constipation 10/11/17 16:45 11/10/17 16:44 Risperidone (RisperDAL) 1 mg BEDTIME ORAL 10/14/17 21:00 11/13/17 20:59 10/24/17 22:34 Sodium Hypochlorite (Dakin's Quarter Strength) 1 applic DAILY TOPIC 10/20/17 09:00 11/19/17 08:59 11/03/17 09:25 Tamsulosin HCl (Flomax) 0.4 mg BID ORAL 10/12/17 13:30 11/10/17 13:29 10/28/17 10:13 Tigecycline 50 mg/ Dextrose 110 ml @ 220 mls/hr Q12HR@0800,2000 IVPB 10/31/17 08:00 11/07/17 07:59 11/03/17 09:24 Vitamin B Complex/ Vit C/Folic Acid (Nephrovite) 1 tab DAILY ORAL 10/12/17 09:00 11/11/17 08:59 11/03/17 09:24 Vitamin D (Vitamin D) 2,000 intlu DAILY ORAL 10/22/17 09:00 11/21/17 08:59 11/03/17 09:24 LARON HERNANDEZ Nov 03, 2017 14:47
--- NOTE | 2017-11-03 15:08 | General Progress Note ---
Assessment/Plan Problem List: (1) Gram-negative bacteremia Assessment & Plan: Bacterioides fragilis bacteremia ICD Codes: R78.81 - Bacteremia SNOMED: 029045437337 (2) Sepsis ICD Codes: A41.9 - Sepsis, unspecified organism SNOMED: 02423418 (3) Progressive osteomyelitis of the posterior calcaneus (4) Cellulitis of left lower extremity ICD Codes: L03.116 - Cellulitis of left lower limb SNOMED: 573680679 (5) L heel diabetic ulcer with concern for osteomyelitis (6) Complete tear with retraction of the calcaneal tendon (7) MISHEL on CKD (8) CKD stage 3 (9) DM2 (diabetes mellitus, type 2) Assessment & Plan: A1C 9.9 ICD Codes: E11.9 - Type 2 diabetes mellitus without complications SNOMED: 49808605 (10) HTN (hypertension) ICD Codes: I10 - Essential (primary) hypertension SNOMED: 86540765 (11) Diabetic neuropathy ICD Codes: E11.40 - Type 2 diabetes mellitus with diabetic neuropathy, unspecified SNOMED: 55064134, 213211692, 854114186 (12) Diabetic nephropathy ICD Codes: E11.21 - Type 2 diabetes mellitus with diabetic nephropathy SNOMED: 68545929, 374743096 Qualifiers: Qualified Codes: E11.21 - Type 2 diabetes mellitus with diabetic nephropathy (13) Hyponatremia ICD Codes: E87.1 - Hypo-osmolality and hyponatremia SNOMED: 61285111 (14) Chronic diabetic ulcer right foot (15) Medical non-compliance ICD Codes: Z91.19 - Patient's noncompliance with other medical treatment and regimen SNOMED: 397757925 (16) Acute on chronic diastolic (congestive) heart failure ICD Codes: I50.33 - Acute on chronic diastolic (congestive) heart failure SNOMED: 77526711, 404426246 (17) fall with head trauma Status: stable Assessment/Plan Podiatry, ID, renal consulted s/p vanco (10/11-10/16) Cont ertapenem + tigecycline started per ID Will need total of 6 weeks of IV abx per ID given osteomyelitis - currently day # Daptomycin was d/c'd on 10/30 given elevated CK level s/p cefepime and flagyl (10/11-10/14) F/u cultures--blood culture showing GNR, wound culture showing Klebsiella and Proteus F/u repeat blood cultures--ngtd PICC line placed 10/17/17 Wound care per podiatry Check MRI L foot--shows progressive osteomyelitis, heel ulceration, soft tissue gas, complete tear of Achilles tendon s/p incision and drainage left foot, excisional debridement to the level of muscle left foot, and partial calcanectomy left foot on 10/13/17 NWB LLE Off wound vac now per podiatry Check renal U/S--shows bladder volume 337mL, refused connolly Flomax 0.4mg BID + finasteride 5mg daily Check TTE--EF 55-60% IVFs restarted per renal given rising SCr Pain control, bowel regimen Supportive care Appreciate psych consult Cont SNF meds ZENIA RODARTE once authorization for SNF obtained Pt unable to go home as he lives alone, does have manager product support but only 3h per day DVT Prophylaxis: HSQ Code Status: Full Hospital Classification Declaration: Based on this initial evaluation, and depending on the patient's clinical course, I anticipate that this patient will require hospitalization for 0-1 day for LLE cellulitis, L heel diabetic ulcer w / concern for osteo, and close respiratory/hemodynamic monitoring. Disposition: Once the patient is stable to leave the hospital, I anticipate the patient will likely be discharged to the following environment: back to SNF Discussed with patient/family, nursing staff, SW/CM, podiatry, ID regarding clinical status, treatment course, and disposition planning. D/w ID re abx on d/ c. D/w podiatry re wound care, d/c plan. D/w CM re dispo Time of note may not reflect time of encounter Subjective Date patient seen: Nov 02, 2017 Time patient seen: 15:07 ROS Limited/Unobtainable: No Allergies: Coded Allergies: GABAPENTIN (Verified Allergy, Unknown, 10/11/17) OLIVE OIL (Verified Adverse Reaction, Severe, SPASM IN THE COLON, 01/18/14) PREGABALIN (Verified Adverse Reaction, Intermediate, "hypernervous", ) ACETAMINOPHEN (Verified Adverse Reaction, Mild, IRRITABILITY AND ELEVATED BLOOD PRESSURE, 01/18/14) IBUPROFEN (Verified Adverse Reaction, Mild, IRRITABILITY AND ELEVATED BLOOD PRESSURE, 01/18/14) Uncoded Allergies: SSRI (Allergy, Unknown, 10/11/17) Subjective No acute o/n events s/p incision and drainage left foot, excisional debridement to the level of muscle left foot, and partial calcanectomy left foot POD#20 Scr improving Awaiting authorization for SNF as pt's Medicare days have run out Pt is noncompliant with meds Pt feels depressed and frustrated that he is still here Pt c/o foot pain. More awake, alert. Denies n/v, d/c, chest pain, SOB, abd pain Objective Last 24 Hour Vital Signs Date Time Temp Pulse Resp B/P (MAP) Pulse Ox O2 Delivery O2 Flow Rate FiO2 11/03/17 11:54 97.8 57 19 139/62 Room Air 97.8 11/03/17 08:00 98.1 56 18 148/58 96 Room Air 98.1 11/03/17 04:00 Room Air 11/03/17 04:00 98.6 66 20 152/57 94 Room Air 98.6 11/03/17 00:00 98.1 68 18 150/70 98 Room Air 98.1 11/02/17 16:00 97.3 72 21 126/53 99 Room Air 97.3 Intake and Output 11/02/17 11/03/17 19:00 07:00 Intake Total 480 ml Output Total 200 ml Balance 480 ml -200 ml Intake Oral 480 ml Output Urine Total 200 ml # Voids 3 2 Laboratory Tests 11/03/17 06:30: White Blood Count 8.7, Red Blood Count 3.34L, Hemoglobin 8.3L, Hematocrit 26.2L , Mean Corpuscular Volume 78L, Mean Corpuscular Hemoglobin 24.8L, Mean Corpuscular Hemoglobin Concent 31.6L, Red Cell Distribution Width 15.4H, Platelet Count 379, Mean Platelet Volume 5.6L, Neutrophils (%) (Auto) 56.6, Lymphocytes (%) (Auto) 25.9, Monocytes (%) (Auto) 6.6, Eosinophils (%) (Auto) 9.4H, Basophils (%) (Auto) 1.6, Sodium Level 143, Potassium Level 3.9, Chloride Level 108H, Carbon Dioxide Level 26, Anion Gap 9, Blood Urea Nitrogen 48H, Creatinine 1.9H, Estimat Glomerular Filtration Rate , Glucose Level 109H, Uric Acid 9.1H, Calcium Level 7.8L, Phosphorus Level 3.8, Magnesium Level 2.1, Total Bilirubin 0.7, Direct Bilirubin 0.2, Aspartate Amino Transf (AST/SGOT) 28, Alanine Aminotransferase (ALT/SGPT) 23, Alkaline Phosphatase 77, Total Protein 6.4, Albumin 2.4L Height (Feet): 5 Height (Inches): 8.00 Weight (Pounds): 185 Objective General: alert, cooperative, no distress, appears stated age Head: normocephalic, without obvious abnormality, atraumatic Eyes: conjunctivae/corneas clear. PERRL, EOM's intact Throat: lips, mucosa, and tongue normal. MMM Neck: supple, symmetrical, trachea midline, and no JVD Lungs: clear to auscultation bilaterally Heart: regular rate and rhythm, S1, S2 normal, no murmur, click, rub or gallop Abdomen: soft, non-tender, non-distended, bowel sounds normal Extremities: extremities normal, atraumatic, no cyanosis, 1-2+ pitting edema BLE Pulses: 2+ and symmetric Skin: Left foot dressing c/d/i, Right foot dressing c/d/i Neurologic: grossly normal, no focal deficits Conner Orozco M.D. Nov 03, 2017 15:07
--- NOTE | 2017-11-03 15:13 | General Progress Note ---
Assessment/Plan Problem List: (1) Gram-negative bacteremia Assessment & Plan: Bacterioides fragilis bacteremia ICD Codes: R78.81 - Bacteremia SNOMED: 173647250557 (2) Sepsis ICD Codes: A41.9 - Sepsis, unspecified organism SNOMED: 33646530 (3) Progressive osteomyelitis of the posterior calcaneus (4) Cellulitis of left lower extremity ICD Codes: L03.116 - Cellulitis of left lower limb SNOMED: 393048647 (5) L heel diabetic ulcer with concern for osteomyelitis (6) Complete tear with retraction of the calcaneal tendon (7) MISHEL on CKD (8) CKD stage 3 (9) DM2 (diabetes mellitus, type 2) Assessment & Plan: A1C 9.9 ICD Codes: E11.9 - Type 2 diabetes mellitus without complications SNOMED: 15370900 (10) HTN (hypertension) ICD Codes: I10 - Essential (primary) hypertension SNOMED: 17857779 (11) Diabetic neuropathy ICD Codes: E11.40 - Type 2 diabetes mellitus with diabetic neuropathy, unspecified SNOMED: 77427610, 943283140, 343345301 (12) Diabetic nephropathy ICD Codes: E11.21 - Type 2 diabetes mellitus with diabetic nephropathy SNOMED: 09507981, 573675716 Qualifiers: Qualified Codes: E11.21 - Type 2 diabetes mellitus with diabetic nephropathy (13) Hyponatremia ICD Codes: E87.1 - Hypo-osmolality and hyponatremia SNOMED: 48389442 (14) Chronic diabetic ulcer right foot (15) Medical non-compliance ICD Codes: Z91.19 - Patient's noncompliance with other medical treatment and regimen SNOMED: 755722911 (16) Acute on chronic diastolic (congestive) heart failure ICD Codes: I50.33 - Acute on chronic diastolic (congestive) heart failure SNOMED: 06091566, 360330815 (17) fall with head trauma Status: stable Assessment/Plan Podiatry, ID, renal consulted s/p vanco (10/11-10/16) Cont ertapenem + tigecycline per ID Will need total of 6 weeks of IV abx per ID given osteomyelitis - currently day #20 Daptomycin was d/c'd on 10/30 given elevated CK level s/p cefepime and flagyl (10/11-10/14) F/u cultures--blood culture showing GNR, wound culture showing Klebsiella and Proteus F/u repeat blood cultures--ngtd PICC line placed 10/17/17 Wound care per podiatry Check MRI L foot--shows progressive osteomyelitis, heel ulceration, soft tissue gas, complete tear of Achilles tendon s/p incision and drainage left foot, excisional debridement to the level of muscle left foot, and partial calcanectomy left foot on 10/13/17 NWB LLE Off wound vac now per podiatry Check renal U/S--shows bladder volume 337mL, refused connolly Flomax 0.4mg BID + finasteride 5mg daily Check TTE--EF 55-60% Pain control, bowel regimen Supportive care Appreciate psych consult Cont SNF meds ZENIA DC once authorization for SNF obtained Pt unable to go home as he lives alone, does have devulcanizer head but only 3h per day DVT Prophylaxis: HSQ Code Status: Full Hospital Classification Declaration: Based on this initial evaluation, and depending on the patient's clinical course, I anticipate that this patient will require hospitalization for 0-1 day for LLE cellulitis, L heel diabetic ulcer w / concern for osteo, and close respiratory/hemodynamic monitoring. Disposition: Once the patient is stable to leave the hospital, I anticipate the patient will likely be discharged to the following environment: back to SNF Discussed with patient/family, nursing staff, SW/CM, podiatry, ID regarding clinical status, treatment course, and disposition planning. D/w ID re abx on d/ c. D/w podiatry re wound care, d/c plan. D/w CM re dispo Time of note may not reflect time of encounter Subjective Date patient seen: Nov 03, 2017 Time patient seen: 15:09 ROS Limited/Unobtainable: No Constitutional: Reports: no symptoms HEENT: Reports: no symptoms Cardiovascular: Reports: no symptoms Respiratory: Reports: no symptoms Gastrointestinal/Abdominal: Reports: no symptoms Genitourinary: Reports: no symptoms Neurologic/Psychiatric: Reports: no symptoms Endocrine: Reports: no symptoms Hematologic/Lymphatic: Reports: no symptoms Allergies: Coded Allergies: GABAPENTIN (Verified Allergy, Unknown, 10/11/17) OLIVE OIL (Verified Adverse Reaction, Severe, SPASM IN THE COLON, 01/18/14) PREGABALIN (Verified Adverse Reaction, Intermediate, "hypernervous", ) ACETAMINOPHEN (Verified Adverse Reaction, Mild, IRRITABILITY AND ELEVATED BLOOD PRESSURE, 01/18/14) IBUPROFEN (Verified Adverse Reaction, Mild, IRRITABILITY AND ELEVATED BLOOD PRESSURE, 01/18/14) Uncoded Allergies: SSRI (Allergy, Unknown, 10/11/17) All Systems: reviewed and negative except above Subjective No acute o/n events s/p incision and drainage left foot, excisional debridement to the level of muscle left foot, and partial calcanectomy left foot POD#21 Scr improving Awaiting authorization for SNF as pt's Medicare days have run out Pt is noncompliant with meds Pt feels depressed and frustrated that he is still here Pt c/o foot pain. More awake, alert. Denies n/v, d/c, chest pain, SOB, abd pain Objective Last 24 Hour Vital Signs Date Time Temp Pulse Resp B/P (MAP) Pulse Ox O2 Delivery O2 Flow Rate FiO2 11/03/17 11:54 97.8 57 19 139/62 Room Air 97.8 11/03/17 08:00 98.1 56 18 148/58 96 Room Air 98.1 11/03/17 04:00 Room Air 11/03/17 04:00 98.6 66 20 152/57 94 Room Air 98.6 11/03/17 00:00 98.1 68 18 150/70 98 Room Air 98.1 11/02/17 16:00 97.3 72 21 126/53 99 Room Air 97.3 Intake and Output 11/02/17 11/03/17 19:00 07:00 Intake Total 480 ml Output Total 200 ml Balance 480 ml -200 ml Intake Oral 480 ml Output Urine Total 200 ml # Voids 3 2 Laboratory Tests 11/03/17 06:30: White Blood Count 8.7, Red Blood Count 3.34L, Hemoglobin 8.3L, Hematocrit 26.2L , Mean Corpuscular Volume 78L, Mean Corpuscular Hemoglobin 24.8L, Mean Corpuscular Hemoglobin Concent 31.6L, Red Cell Distribution Width 15.4H, Platelet Count 379, Mean Platelet Volume 5.6L, Neutrophils (%) (Auto) 56.6, Lymphocytes (%) (Auto) 25.9, Monocytes (%) (Auto) 6.6, Eosinophils (%) (Auto) 9.4H, Basophils (%) (Auto) 1.6, Sodium Level 143, Potassium Level 3.9, Chloride Level 108H, Carbon Dioxide Level 26, Anion Gap 9, Blood Urea Nitrogen 48H, Creatinine 1.9H, Estimat Glomerular Filtration Rate , Glucose Level 109H, Uric Acid 9.1H, Calcium Level 7.8L, Phosphorus Level 3.8, Magnesium Level 2.1, Total Bilirubin 0.7, Direct Bilirubin 0.2, Aspartate Amino Transf (AST/SGOT) 28, Alanine Aminotransferase (ALT/SGPT) 23, Alkaline Phosphatase 77, Total Protein 6.4, Albumin 2.4L Height (Feet): 5 Height (Inches): 8.00 Weight (Pounds): 185 Objective General: alert, cooperative, no distress, appears stated age Head: normocephalic, without obvious abnormality, atraumatic Eyes: conjunctivae/corneas clear. PERRL, EOM's intact Throat: lips, mucosa, and tongue normal. MMM Neck: supple, symmetrical, trachea midline, and no JVD Lungs: clear to auscultation bilaterally Heart: regular rate and rhythm, S1, S2 normal, no murmur, click, rub or gallop Abdomen: soft, non-tender, non-distended, bowel sounds normal Extremities: extremities normal, atraumatic, no cyanosis, 1-2+ pitting edema BLE Pulses: 2+ and symmetric Skin: Left foot dressing c/d/i, Right foot dressing c/d/i Neurologic: grossly normal, no focal deficits Conner Orozco M.D. Nov 03, 2017 15:13
--- NOTE | 2017-11-03 15:28 | Nephrology Progress Note ---
Assessment/Plan Problem List: (1) HTN (hypertension) (2) Diabetes mellitus (3) Ulcer of left heel (4) Renal insufficiency Assessment cr carlos above 3 now gradually lowering Foot ulcer, left left leg cellulitis, left heel ulcer, ? osteo, leukocytosis, lgt Renal insufficiency acute vs chronic Cr lowering now 1.5 Urinary retention: REFUSES CONNOLLY Anemia UTI Plan refuses connolly fluid challenge Avoid Nephrotoxics Keep BP in check monitor renal parameters Anemia henry urine studies flomax start cardura Kidney FAMILIA Unremarkable kidneys. Negative for hydronephrosis Note inability of the patient to void with a bladder volume of 337 mL 2D echo :Left ventricular ejection fraction estimated to be 55-60%. No evidence of left ventricular hypertrophy. Subjective ROS Limited/Unobtainable: No Constitutional: Reports: malaise Objective Objective Last 24 Hour Vital Signs Date Time Temp Pulse Resp B/P (MAP) Pulse Ox O2 Delivery O2 Flow Rate FiO2 11/03/17 11:54 97.8 57 19 139/62 Room Air 97.8 11/03/17 08:00 98.1 56 18 148/58 96 Room Air 98.1 11/03/17 04:00 Room Air 11/03/17 04:00 98.6 66 20 152/57 94 Room Air 98.6 11/03/17 00:00 98.1 68 18 150/70 98 Room Air 98.1 11/02/17 16:00 97.3 72 21 126/53 99 Room Air 97.3 Intake and Output 11/02/17 11/03/17 19:00 07:00 Intake Total 480 ml Output Total 200 ml Balance 480 ml -200 ml Intake Oral 480 ml Output Urine Total 200 ml # Voids 3 2 Laboratory Tests 11/03/17 06:30: White Blood Count 8.7, Red Blood Count 3.34L, Hemoglobin 8.3L, Hematocrit 26.2L , Mean Corpuscular Volume 78L, Mean Corpuscular Hemoglobin 24.8L, Mean Corpuscular Hemoglobin Concent 31.6L, Red Cell Distribution Width 15.4H, Platelet Count 379, Mean Platelet Volume 5.6L, Neutrophils (%) (Auto) 56.6, Lymphocytes (%) (Auto) 25.9, Monocytes (%) (Auto) 6.6, Eosinophils (%) (Auto) 9.4H, Basophils (%) (Auto) 1.6, Sodium Level 143, Potassium Level 3.9, Chloride Level 108H, Carbon Dioxide Level 26, Anion Gap 9, Blood Urea Nitrogen 48H, Creatinine 1.9H, Estimat Glomerular Filtration Rate , Glucose Level 109H, Uric Acid 9.1H, Calcium Level 7.8L, Phosphorus Level 3.8, Magnesium Level 2.1, Total Bilirubin 0.7, Direct Bilirubin 0.2, Aspartate Amino Transf (AST/SGOT) 28, Alanine Aminotransferase (ALT/SGPT) 23, Alkaline Phosphatase 77, Total Protein 6.4, Albumin 2.4L Height (Feet): 5 Height (Inches): 8.00 Weight (Pounds): 185 General Appearance: no apparent distress Objective no other changes IHSAN REGALADO Nov 03, 2017 15:28
[2017-11-03 15:50] VITALS: BP 152/64
[2017-11-03 16:23] LABS: CREATINE KINASE 171 U/L (26-308)
[2017-11-03] MEDS: oxyCODONE 5mg IR tab ORAL PRN (16:44)
[2017-11-03] MEDS: Ertapenem 0.5 GM in NS 55 ML IVPB SCH (16:44)
[2017-11-03] MEDS: Levemir Flexpen SUBQ SCH (18:16)
[2017-11-03 20:00] VITALS: BP 101/85
[2017-11-03] MEDS: Dyna-Hex 2% Top Sol 2oz TOPIC SCH (21:22)
--- NOTE | 2017-11-03 21:44 | General Progress Note ---
Assessment/Plan Problem List: (1) Dementia with behavioral disturbance Assessment & Plan: Dementia with behavior disturbance and agitation. lacks capacity to make decisions lacks capacity to refuse meds PLAN: 1. Continue risperidone 1 mg at bedtime. 2. Continue Remeron 15 at bedtime. 3. Continue to follow and readjust the medications. ICD Codes: F03.91 - Unspecified dementia with behavioral disturbance SNOMED: 0706959798290 Assessment/Plan Dementia with behavior disturbance and agitation. lacks capacity to make decisions lacks capacity to refuse meds PLAN: 1. Continue risperidone 1 mg at bedtime. 2. Continue Remeron 15 at bedtime. 3. Continue to follow and readjust the medications. Subjective Date patient seen: Nov 03, 2017 Allergies: Coded Allergies: GABAPENTIN (Verified Allergy, Unknown, 10/11/17) OLIVE OIL (Verified Adverse Reaction, Severe, SPASM IN THE COLON, 01/18/14) PREGABALIN (Verified Adverse Reaction, Intermediate, "hypernervous", ) ACETAMINOPHEN (Verified Adverse Reaction, Mild, IRRITABILITY AND ELEVATED BLOOD PRESSURE, 01/18/14) IBUPROFEN (Verified Adverse Reaction, Mild, IRRITABILITY AND ELEVATED BLOOD PRESSURE, 01/18/14) Uncoded Allergies: SSRI (Allergy, Unknown, 10/11/17) Subjective refused some meds irritable Objective Last 24 Hour Vital Signs Date Time Temp Pulse Resp B/P (MAP) Pulse Ox O2 Delivery O2 Flow Rate FiO2 11/03/17 20:00 97.9 85 20 101/85 98 Room Air 97.9 11/03/17 15:50 98.6 65 18 152/64 96 Room Air 98.6 11/03/17 11:54 97.8 57 19 139/62 Room Air 97.8 11/03/17 08:00 98.1 56 18 148/58 96 Room Air 98.1 11/03/17 04:00 Room Air 11/03/17 04:00 98.6 66 20 152/57 94 Room Air 98.6 11/03/17 00:00 98.1 68 18 150/70 98 Room Air 98.1 Intake and Output 11/02/17 11/03/17 19:00 07:00 Intake Total 480 ml Output Total 200 ml Balance 480 ml -200 ml Intake Oral 480 ml Output Urine Total 200 ml # Voids 3 2 Laboratory Tests 11/03/17 06:30: White Blood Count 8.7, Red Blood Count 3.34L, Hemoglobin 8.3L, Hematocrit 26.2L , Mean Corpuscular Volume 78L, Mean Corpuscular Hemoglobin 24.8L, Mean Corpuscular Hemoglobin Concent 31.6L, Red Cell Distribution Width 15.4H, Platelet Count 379, Mean Platelet Volume 5.6L, Neutrophils (%) (Auto) 56.6, Lymphocytes (%) (Auto) 25.9, Monocytes (%) (Auto) 6.6, Eosinophils (%) (Auto) 9.4H, Basophils (%) (Auto) 1.6, Sodium Level 143, Potassium Level 3.9, Chloride Level 108H, Carbon Dioxide Level 26, Anion Gap 9, Blood Urea Nitrogen 48H, Creatinine 1.9H, Estimat Glomerular Filtration Rate , Glucose Level 109H, Uric Acid 9.1H, Calcium Level 7.8L, Phosphorus Level 3.8, Magnesium Level 2.1, Total Bilirubin 0.7, Direct Bilirubin 0.2, Aspartate Amino Transf (AST/SGOT) 28, Alanine Aminotransferase (ALT/SGPT) 23, Alkaline Phosphatase 77, Total Protein 6.4, Albumin 2.4L 11/03/17 15:30: Total Creatine Kinase 171 Height (Feet): 5 Height (Inches): 8.00 Weight (Pounds): 185 Milton Lancaster M.D. Nov 03, 2017 21:44
[2017-11-04 00:05] VITALS: BP 143/62
[2017-11-04 04:00] VITALS: BP 137/67
[2017-11-04] MEDS: oxyCONTIN 10mg tab ORAL SCH ×3 (06:00→22:06)
[2017-11-04] MEDS: NovoLOG Insulin Flexpen SUBQ SCH ×4 (06:02→20:45)
[2017-11-04 08:00] VITALS: BP 133/45
[2017-11-04] MEDS: Tamsulosin 0.4mg cap ORAL SCH ×2 (09:00→17:33)
[2017-11-04] MEDS: Heparin 5000 units/ml inj SUBQ SCH ×2 (09:00→21:00)
[2017-11-04] MEDS: Doxazosin 1mg Tab ORAL SCH ×2 (09:00→17:35)
[2017-11-04] MEDS: Nephrovite tab (Rena-Vite) ORAL SCH (09:08)
[2017-11-04] MEDS: Docusate 100mg cap ORAL SCH ×3 (09:08→17:33)
[2017-11-04] MEDS: Tigecycline 50mg in D5W 110ml IVPB SCH ×2 (09:08→20:44)
[2017-11-04] MEDS: Ascorbic Acid 500mg tab ORAL SCH (09:08)
[2017-11-04] MEDS: Vitamin D 1000 IU Tab ORAL SCH (09:14)
[2017-11-04] MEDS: Analgesic Balm 15gm TOPIC SCH ×2 (09:16→17:35)
[2017-11-04] MEDS: Dakin's 0.125% Soln (Quarter Strength) 16oz TOPIC SCH (09:17)
[2017-11-04 12:00] VITALS: BP 132/58
--- NOTE | 2017-11-04 14:57 | Nephrology Progress Note ---
Assessment/Plan Problem List: (1) HTN (hypertension) (2) Diabetes mellitus (3) Ulcer of left heel (4) Renal insufficiency Assessment cr carlos above 3 now gradually lowering Foot ulcer, left left leg cellulitis, left heel ulcer, ? osteo, leukocytosis, lgt Renal insufficiency acute vs chronic Cr lowering now 1.5 Urinary retention: REFUSES CONNOLLY Anemia UTI Plan no labs today refuses connolly fluid challenge Avoid Nephrotoxics Keep BP in check monitor renal parameters Anemia henry urine studies flomax start cardura Kidney FAMILIA Unremarkable kidneys. Negative for hydronephrosis Note inability of the patient to void with a bladder volume of 337 mL 2D echo :Left ventricular ejection fraction estimated to be 55-60%. No evidence of left ventricular hypertrophy. Subjective ROS Limited/Unobtainable: No Constitutional: Reports: malaise Objective Objective Last 24 Hour Vital Signs Date Time Temp Pulse Resp B/P (MAP) Pulse Ox O2 Delivery O2 Flow Rate FiO2 11/04/17 14:06 98.2 11/04/17 12:00 98.2 66 19 132/58 96 98.2 66 11/04/17 08:00 97.8 54 20 133/45 98 97.8 11/04/17 04:00 98.1 58 20 137/67 97 98.1 11/04/17 00:05 97.7 60 21 143/62 Room Air 97.7 11/03/17 20:00 97.9 85 20 101/85 98 Room Air 97.9 11/03/17 15:50 98.6 65 18 152/64 96 Room Air 98.6 Intake and Output 11/03/17 11/04/17 19:00 07:00 Intake Total 560 ml 220 ml Output Total 600 ml 600 ml Balance -40 ml -380 ml Intake Oral 450 ml IV Total 110 ml 220 ml Output Urine Total 600 ml 600 ml # Voids 3 # Bowel Movements 1 Laboratory Tests 11/03/17 15:30: Total Creatine Kinase 171 Height (Feet): 5 Height (Inches): 8.00 Weight (Pounds): 185 General Appearance: no apparent distress Objective no other changes IHSAN REGALADO Nov 04, 2017 14:57
--- NOTE | 2017-11-04 15:02 | General Progress Note ---
Assessment/Plan Problem List: (1) Dementia with behavioral disturbance Assessment & Plan: Dementia with behavior disturbance and agitation. lacks capacity to make decisions lacks capacity to refuse meds PLAN: 1. Continue risperidone 1 mg at bedtime. 2. Continue Remeron 15 at bedtime. 3. Continue to follow and readjust the medications. ICD Codes: F03.91 - Unspecified dementia with behavioral disturbance SNOMED: 9133288566578 Assessment/Plan Dementia with behavior disturbance and agitation. lacks capacity to make decisions lacks capacity to refuse meds PLAN: 1. Continue risperidone 1 mg at bedtime. 2. Continue Remeron 15 at bedtime. 3. Continue to follow and readjust the medications. Subjective Date patient seen: Nov 04, 2017 Allergies: Coded Allergies: GABAPENTIN (Verified Allergy, Unknown, 10/11/17) OLIVE OIL (Verified Adverse Reaction, Severe, SPASM IN THE COLON, 01/18/14) PREGABALIN (Verified Adverse Reaction, Intermediate, "hypernervous", ) ACETAMINOPHEN (Verified Adverse Reaction, Mild, IRRITABILITY AND ELEVATED BLOOD PRESSURE, 01/18/14) IBUPROFEN (Verified Adverse Reaction, Mild, IRRITABILITY AND ELEVATED BLOOD PRESSURE, 01/18/14) Uncoded Allergies: SSRI (Allergy, Unknown, 10/11/17) Subjective refused some meds depressed mood. Objective Last 24 Hour Vital Signs Date Time Temp Pulse Resp B/P (MAP) Pulse Ox O2 Delivery O2 Flow Rate FiO2 11/04/17 14:06 98.2 11/04/17 12:00 98.2 66 19 132/58 96 98.2 66 11/04/17 08:00 97.8 54 20 133/45 98 97.8 11/04/17 04:00 98.1 58 20 137/67 97 98.1 11/04/17 00:05 97.7 60 21 143/62 Room Air 97.7 11/03/17 20:00 97.9 85 20 101/85 98 Room Air 97.9 11/03/17 15:50 98.6 65 18 152/64 96 Room Air 98.6 Intake and Output 11/03/17 11/04/17 19:00 07:00 Intake Total 560 ml 220 ml Output Total 600 ml 600 ml Balance -40 ml -380 ml Intake Oral 450 ml IV Total 110 ml 220 ml Output Urine Total 600 ml 600 ml # Voids 3 # Bowel Movements 1 Laboratory Tests 11/03/17 15:30: Total Creatine Kinase 171 Height (Feet): 5 Height (Inches): 8.00 Weight (Pounds): 185 Milton Lancaster M.D. Nov 04, 2017 15:02
--- NOTE | 2017-11-04 15:04 | General Progress Note ---
Assessment/Plan Problem List: (1) Gram-negative bacteremia Assessment & Plan: Bacterioides fragilis bacteremia ICD Codes: R78.81 - Bacteremia SNOMED: 276232831313 (2) Sepsis ICD Codes: A41.9 - Sepsis, unspecified organism SNOMED: 76837828 (3) Progressive osteomyelitis of the posterior calcaneus (4) Cellulitis of left lower extremity ICD Codes: L03.116 - Cellulitis of left lower limb SNOMED: 009660547 (5) L heel diabetic ulcer with concern for osteomyelitis (6) Complete tear with retraction of the calcaneal tendon (7) MISHEL on CKD (8) CKD stage 3 (9) DM2 (diabetes mellitus, type 2) Assessment & Plan: A1C 9.9 ICD Codes: E11.9 - Type 2 diabetes mellitus without complications SNOMED: 74820781 (10) HTN (hypertension) ICD Codes: I10 - Essential (primary) hypertension SNOMED: 61474081 (11) Diabetic neuropathy ICD Codes: E11.40 - Type 2 diabetes mellitus with diabetic neuropathy, unspecified SNOMED: 25609556, 389717792, 777657035 (12) Diabetic nephropathy ICD Codes: E11.21 - Type 2 diabetes mellitus with diabetic nephropathy SNOMED: 27049492, 916952275 Qualifiers: Qualified Codes: E11.21 - Type 2 diabetes mellitus with diabetic nephropathy (13) Hyponatremia ICD Codes: E87.1 - Hypo-osmolality and hyponatremia SNOMED: 87448347 (14) Chronic diabetic ulcer right foot (15) Medical non-compliance ICD Codes: Z91.19 - Patient's noncompliance with other medical treatment and regimen SNOMED: 357363802 (16) Acute on chronic diastolic (congestive) heart failure ICD Codes: I50.33 - Acute on chronic diastolic (congestive) heart failure SNOMED: 74141228, 440189372 (17) fall with head trauma Status: stable Assessment/Plan Podiatry, ID, renal consulted s/p vanco (10/11-10/16) Cont ertapenem + tigecycline per ID Will need total of 6 weeks of IV abx per ID given osteomyelitis - currently day #21/ Daptomycin was d/c'd on 10/30 given elevated CK level s/p cefepime and flagyl (10/11-10/14) F/u cultures--blood culture showing GNR, wound culture showing Klebsiella and Proteus F/u repeat blood cultures--ngtd PICC line placed 10/17/17 Wound care per podiatry Check MRI L foot--shows progressive osteomyelitis, heel ulceration, soft tissue gas, complete tear of Achilles tendon s/p incision and drainage left foot, excisional debridement to the level of muscle left foot, and partial calcanectomy left foot on 10/13/17 [facility] LLE Off wound vac now per podiatry Check renal U/S--shows bladder volume 337mL, refused connolly Flomax 0.4mg BID + finasteride 5mg daily Check TTE--EF 55-60% Pain control, bowel regimen Supportive care Appreciate psych consult Cont SNF meds ZENIA DC once authorization for SNF obtained Pt unable to go home as he lives alone, 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 Disposition: Once the patient is stable to leave the hospital, I anticipate the patient will likely be discharged to the following environment: back to SNF Discussed with patient/family, nursing staff, SW/CM, podiatry, ID regarding clinical status, treatment course, and disposition planning. D/w ID re abx on d/ c. D/w podiatry re wound care, d/c plan. D/w CM re dispo Time of note may not reflect time of encounter Subjective Date patient seen: Nov 04, 2017 Time patient seen: 15:04 ROS Limited/Unobtainable: No Constitutional: Reports: no symptoms HEENT: Reports: no symptoms Cardiovascular: Reports: no symptoms Respiratory: Reports: no symptoms Gastrointestinal/Abdominal: Reports: no symptoms Genitourinary: Reports: no symptoms Neurologic/Psychiatric: Reports: no symptoms Endocrine: Reports: no symptoms Hematologic/Lymphatic: Reports: no symptoms Allergies: Coded Allergies: GABAPENTIN (Verified Allergy, Unknown, 10/11/17) OLIVE OIL (Verified Adverse Reaction, Severe, SPASM IN THE COLON, 01/18/14) PREGABALIN (Verified Adverse Reaction, Intermediate, "hypernervous", ) ACETAMINOPHEN (Verified Adverse Reaction, Mild, IRRITABILITY AND ELEVATED BLOOD PRESSURE, 01/18/14) IBUPROFEN (Verified Adverse Reaction, Mild, IRRITABILITY AND ELEVATED BLOOD PRESSURE, 01/18/14) Uncoded Allergies: SSRI (Allergy, Unknown, 10/11/17) Subjective No acute o/n events s/p incision and drainage left foot, excisional debridement to the level of muscle left foot, and partial calcanectomy left foot POD#23 Scr improving Awaiting authorization for SNF as pt's Medicare days have run out Pt is noncompliant with meds Pt feels depressed and frustrated that he is still here Pt c/o foot pain. More awake, alert. Denies n/v, d/c, chest pain, SOB, abd pain Objective Last 24 Hour Vital Signs Date Time Temp Pulse Resp B/P (MAP) Pulse Ox O2 Delivery O2 Flow Rate FiO2 11/04/17 14:06 98.2 11/04/17 12:00 98.2 66 19 132/58 96 98.2 66 11/04/17 08:00 97.8 54 20 133/45 98 97.8 11/04/17 04:00 98.1 58 20 137/67 97 98.1 11/04/17 00:05 97.7 60 21 143/62 Room Air 97.7 11/03/17 20:00 97.9 85 20 101/85 98 Room Air 97.9 11/03/17 15:50 98.6 65 18 152/64 96 Room Air 98.6 Intake and Output 11/03/17 11/04/17 19:00 07:00 Intake Total 560 ml 220 ml Output Total 600 ml 600 ml Balance -40 ml -380 ml Intake Oral 450 ml IV Total 110 ml 220 ml Output Urine Total 600 ml 600 ml # Voids 3 # Bowel Movements 1 Laboratory Tests 11/03/17 15:30: Total Creatine Kinase 171 Height (Feet): 5 Height (Inches): 8.00 Weight (Pounds): 185 Objective General: alert, cooperative, no distress, appears stated age Head: normocephalic, without obvious abnormality, atraumatic Eyes: conjunctivae/corneas clear. PERRL, EOM's intact Throat: lips, mucosa, and tongue normal. MMM Neck: supple, symmetrical, trachea midline, and no JVD Lungs: clear to auscultation bilaterally Heart: regular rate and rhythm, S1, S2 normal, no murmur, click, rub or gallop Abdomen: soft, non-tender, non-distended, bowel sounds normal Extremities: extremities normal, atraumatic, no cyanosis, 1-2+ pitting edema BLE Pulses: 2+ and symmetric Skin: Left foot dressing c/d/i, Right foot dressing c/d/i Neurologic: grossly normal, no focal deficits Conner Orozco M.D. Nov 04, 2017 15:04
--- NOTE | 2017-11-04 15:49 | Infectious Diseases Prog Note ---
Assessment/Plan Assessment/Plan ASSESSMENT AND PLAN: 1. bacteroides bacteremia, proteus/klebsiella/vre left heel/foot wound infection and osteomyelitis on MRI, sepsis, leukocytosis, ? fungal uti - elevated CK noted, ? secondary to fall vs daptomycin - s/p debridement, debridement as needed per podiatry - leg redness better, chronic edema - clinically better, podiatry note reviewed and wounds and cellulitis improving - continue wound care per podiatry - f/u labs, surveillance blood cultures negative, ck now wnl - invanz and tygecycline for now, because of elevated ck, may rechallenge with daptomycin at later date - abx started on 10/14, plan on 6 week course - day #21/42 - vre colonized - fungal uti s/p diflucan 2. Elevated creatinine, chronic renal failure, acute kidney injury, elevated ck , s/p fall, ? rhabdomyolysis 3. Anemia. 4. The patient with history of diabetes. 5. Hypertension. 6. Blood sugar and blood pressure treatment per primary. 7. Benign prostatic hypertrophy. 8. Atherosclerotic cardiovascular disease. 9. Chronic diastolic congestive heart failure. 10. Anemia. 11. Dizziness, headaches, weakness, and fatigue. 12. Allergies, acetaminophen, gabapentin, ibuprofen, Elavil, pregabalin, and selective serotonin reuptake inhibitors. 13. Social history negative. 14. Family history noncontributory. 15. MAR was noted. 16. Case discussed with RN. 17. Continue treatment per primary consultants. 18. Orders were entered. 19. Notes and records noted. Subjective Constitutional: Denies: fever HEENT: Denies: congestion Respiratory: Denies: shortness of breath Cardiovascular: Denies: chest pain Gastrointestinal/Abdominal: Denies: nausea, vomiting, diarrhea Neurologic: Denies: headache Psychiatric: Denies: depression Skin: Denies: rash Hematologic: Denies: bleeding Musculoskeletal: Denies: pain Allergies: Coded Allergies: GABAPENTIN (Verified Allergy, Unknown, 10/11/17) OLIVE OIL (Verified Adverse Reaction, Severe, SPASM IN THE COLON, 01/18/14) PREGABALIN (Verified Adverse Reaction, Intermediate, "hypernervous", ) ACETAMINOPHEN (Verified Adverse Reaction, Mild, IRRITABILITY AND ELEVATED BLOOD PRESSURE, 01/18/14) IBUPROFEN (Verified Adverse Reaction, Mild, IRRITABILITY AND ELEVATED BLOOD PRESSURE, 01/18/14) Uncoded Allergies: SSRI (Allergy, Unknown, 10/11/17) Objective Vital Signs Last 24 Hour Vital Signs Date Time Temp Pulse Resp B/P (MAP) Pulse Ox O2 Delivery O2 Flow Rate FiO2 11/04/17 14:06 98.2 11/04/17 12:00 98.2 66 19 132/58 96 98.2 66 11/04/17 08:00 97.8 54 20 133/45 98 97.8 11/04/17 04:00 98.1 58 20 137/67 97 98.1 11/04/17 00:05 97.7 60 21 143/62 Room Air 97.7 11/03/17 20:00 97.9 85 20 101/85 98 Room Air 97.9 11/03/17 15:50 98.6 65 18 152/64 96 Room Air 98.6 Height (Feet): 5 Height (Inches): 8.00 Weight (Pounds): 185 General Appearance: no acute distress HEENT: normocephalic, atraumatic, anicteric, mucous membranes moist Respiratory/Chest: lungs clear, normal breath sounds, no accessory muscle use Cardiovascular: normal rate, regular rhythm, no gallop/murmur, no JVD Abdomen: normal bowel sounds, soft, non tender, no organomegaly, non distended Genitourinary: other - no connolly Extremities: no cyanosis, other - leg warmth less, stilll with chronic edema Skin: no rash 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 No acute process otherwise. MRI left foot and ankle - Impression: Positive for progressive osteomyelitis of the posterior calcaneus, since prior study of 08/02/2017 Increasing ulceration of the overlying soft tissues, with possible exposure of the medial aspect of the calcaneal tuberosity. Small amount of gas within the medial soft tissues,. The related open wound or could indicate infection by gas-forming organism Complete tear with retraction of the calcaneal tendon, as described. Fluid in the tibiotalar joint. Probably reactive secondary to the above Diffuse edema of the subcutaneous fat. This could be due to cellulitis or could be related to hemodynamic abnormalities Other findings as noted Findings discussed by phone with Dr. Prieto at the time of interpretation Microbiology Date/Time Source Procedure Growth Status 10/14/17 08:50 Blood Blood Culture - Final NO GROWTH AFTER 5 DAYS Complete 10/11/17 17:00 Nasal Nares MRSA Culture - Final NO METHICILLIN RESISTANT STAPH AUREUS... Complete 10/30/17 04:15 Urine,Clean Catch Urine Culture - Final Jessie Albicans Complete 10/13/17 19:20 Foot Left Gram Stain - Final Complete 10/13/17 19:20 Aerobic Culture - Final Klebsiella Pneumoniae Proteus Mirabilis Enterococcus Faecium - Vre Complete 10/13/17 19:20 Foot Left Anaerobic Culture - Final NO ANAEROBES ISOLATED Complete Labs Test 11/03/17 06:30 11/03/17 15:30 White Blood Count 8.7 K/UL (4.8-10.8) Red Blood Count 3.34 M/UL (4.70-6.10) Hemoglobin 8.3 G/DL (14.2-18.0) Hematocrit 26.2 % (42.0-52.0) Mean Corpuscular Volume 78 FL (80-99) Mean Corpuscular Hemoglobin 24.8 PG (27.0-31.0) Mean Corpuscular Hemoglobin Concent 31.6 G/DL (32.0-36.0) Red Cell Distribution Width 15.4 % (11.6-14.8) Platelet Count 379 K/UL (150-450) Mean Platelet Volume 5.6 FL (6.5-10.1) Neutrophils (%) (Auto) 56.6 % (45.0-75.0) Lymphocytes (%) (Auto) 25.9 % (20.0-45.0) Monocytes (%) (Auto) 6.6 % (1.0-10.0) Eosinophils (%) (Auto) 9.4 % (0.0-3.0) Basophils (%) (Auto) 1.6 % (0.0-2.0) Sodium Level 143 MMOL/L (136-145) Potassium Level 3.9 MMOL/L (3.5-5.1) Chloride Level 108 MMOL/L (98-107) Carbon Dioxide Level 26 MMOL/L (21-32) Anion Gap 9 mmol/L (5-15) Blood Urea Nitrogen 48 mg/dL (7-18) Creatinine 1.9 MG/DL (0.55-1.30) Estimat Glomerular Filtration Rate mL/min (>60) Glucose Level 109 MG/DL (74-106) Uric Acid 9.1 MG/DL (2.6-7.2) Calcium Level 7.8 MG/DL (8.5-10.1) Phosphorus Level 3.8 MG/DL (2.5-4.9) Magnesium Level 2.1 MG/DL (1.8-2.4) Total Bilirubin 0.7 MG/DL (0.2-1.0) Direct Bilirubin 0.2 MG/DL (0.0-0.3) Aspartate Amino Transf (AST/SGOT) 28 U/L (15-37) Alanine Aminotransferase (ALT/SGPT) 23 U/L (12-78) Alkaline Phosphatase 77 U/L (46-116) Total Protein 6.4 G/DL (6.4-8.2) Albumin 2.4 G/DL (3.4-5.0) Total Creatine Kinase 171 U/L (26-308) Current Medications Medications (Trade) Dose Ordered Sig/Dari Route PRN Reason Start Time Stop Time Status Last Admin Dose Admin Acetaminophen (Tylenol) 650 mg Q4H PRN ORAL Mild Pain (Scale 1-3), fever 10/11/17 16:45 11/10/17 16:44 Ascorbic Acid (Vitamin C) 500 mg DAILY ORAL 10/25/17 09:00 11/24/17 08:59 11/04/17 09:08 Bisacodyl (Dulcolax) 10 mg HSPRN PRN RECTAL Constipation 10/11/17 17:15 11/10/17 17:14 Chlorhexidine Gluconate (Sarah-Hex 2%) 1 applic DAILY@1999 TOPIC 10/31/17 20:00 11/30/17 19:59 11/03/17 21:22 Clotrimazole (Lotrimin) 1 applic EVERY 12 HOURS TOPIC 10/14/17 21:00 11/13/17 20:59 11/04/17 09:17 Dextrose (Dextrose 50%) STAT PRN IV Hypoglycemia 10/11/17 16:45 11/10/17 16:44 Diphenhydramine HCl (Benadryl) 25 mg Q6H PRN ORAL Itching 10/22/17 23:45 11/21/17 23:44 10/23/17 04:04 Docusate Sodium (Colace) 100 mg TID ORAL 10/12/17 13:30 11/10/17 13:29 11/04/17 09:08 Doxazosin Mesylate (Cardura) 2 mg BID ORAL 11/02/17 18:00 11/15/17 12:59 11/03/17 18:10 Ertapenem 0.5 gm/ Sodium Chloride 55 ml @ 110 mls/hr Q24H IVPB 11/03/17 16:00 11/08/17 16:00 11/03/17 16:44 Finasteride (Proscar) 5 mg DAILY ORAL 10/12/17 09:00 11/11/17 08:59 11/04/17 09:09 Heparin Sodium (Porcine) (Heparin 5000 units/ml) 5,000 units EVERY 12 HOURS SUBQ 10/11/17 21:00 11/10/17 20:59 10/24/17 22:35 Insulin Aspart (NovoLOG) BEFORE MEALS AND HS SUBQ 10/11/17 21:00 11/10/17 20:59 11/04/17 12:37 Insulin Detemir (Levemir) 12 units Q24H SUBQ 10/16/17 18:00 11/15/17 17:59 11/03/17 18:16 Menthol/Methyl Salicylate (Bengay) 1 applic BID TOPIC 10/18/17 20:00 11/17/17 19:59 11/04/17 09:16 Mirtazapine (Remeron) 15 mg BEDTIME ORAL 10/11/17 21:00 11/10/17 20:59 10/28/17 22:04 Ondansetron HCl (Zofran) 4 mg Q6H PRN IVP Nausea & Vomiting 10/11/17 16:45 11/10/17 16:44 Oxycodone HCl (OxyCONTIN) 10 mg EVERY 8 HOURS ORAL 11/01/17 22:00 11/08/17 21:59 11/04/17 14:06 Oxycodone HCl (Roxicodone) 5 mg Q3H PRN ORAL Breakthrough Pain 11/01/17 20:45 11/08/17 20:44 11/03/17 16:44 Polyethylene Glycol (Miralax) 17 gm HSPRN PRN ORAL Constipation 10/11/17 16:45 11/10/17 16:44 Risperidone (RisperDAL) 1 mg BEDTIME ORAL 10/14/17 21:00 11/13/17 20:59 10/24/17 22:34 Sodium Hypochlorite (Dakin's Quarter Strength) 1 applic DAILY TOPIC 10/20/17 09:00 11/19/17 08:59 11/04/17 09:17 Tamsulosin HCl (Flomax) 0.4 mg BID ORAL 10/12/17 13:30 11/10/17 13:29 11/03/17 18:10 Tigecycline 50 mg/ Dextrose 110 ml @ 220 mls/hr Q12HR@0800,2000 IVPB 10/31/17 08:00 11/07/17 07:59 11/04/17 09:08 Vitamin B Complex/ Vit C/Folic Acid (Nephrovite) 1 tab DAILY ORAL 10/12/17 09:00 11/11/17 08:59 11/04/17 09:08 Vitamin D (Vitamin D) 2,000 intlu DAILY ORAL 10/22/17 09:00 11/21/17 08:59 11/04/17 09:14 LARON HERNANDEZ Nov 04, 2017 15:49
[2017-11-04 16:00] VITALS: BP 130/62
[2017-11-04] MEDS: Ertapenem 0.5 GM in NS 55 ML IVPB SCH (17:33)
[2017-11-04] MEDS: Levemir Flexpen SUBQ SCH (17:35)
[2017-11-04] MEDS: oxyCODONE 5mg IR tab ORAL PRN (17:51)
[2017-11-04 20:00] VITALS: BP 112/60
[2017-11-04] MEDS: Dyna-Hex 2% Top Sol 2oz TOPIC SCH (20:44)
--- NOTE | 2017-11-04 22:51 | General Progress Note ---
Assessment/Plan Assessment/Plan #. Anemia due to underlying chronic disease. --> Continue to closely monitor and trend. Hemoglobin goal is above 7 --> anemia workup reviewed. Iron 9, TIBC 127, B12 1791, Folate 41 --> Hemoglobin has been above goal, no prbc needed. #. Anemia of iron deficiency, potentially secondary to osteomyelitis. --> Monitor closely. Trend cbc. --> On iron supplement #. Anemia due to underlying kidney disease. --> Closely monitor, again improving. #. Leukocytosis, status post debridement, gram-negative jasmyn infection noted. --> Wbc count now WNL after antibiotic treatment. --> Remains on meropenem. Monitor closely. --> Infectious Disease Service following. #. Thrombocytosis, likely reactive process from underlying anemia, closely monitor for improvement. --> Resolved. #. Elevated creatinine, chronic kidney disease. #. Diabetes mellitus, on insulin sliding scale as needed as per primary team. #. Diastolic dysfunction. DC planning for SNF. Patient unable to take care of self at home. #. Encephalopathy. --> Pt unable to take care of self. Refuses to go home. Pending placement in SNF. --> Refusing some meds and treatment. Subjective Date patient seen: Nov 03, 2017 Constitutional: Denies: no symptoms, chills, diaphoresis, fever, malaise, weakness, other HEENT: Denies: no symptoms, eye pain, blurred vision, tearing, double vision, ear pain, ear discharge, nose pain, nose congestion, throat pain, throat swelling, mouth pain, mouth swelling, other Cardiovascular: Denies: no symptoms, chest pain, edema, irregular heart rate, lightheadedness, palpitations, syncope, other Respiratory: Denies: no symptoms, cough, orthopnea, shortness of breath, SOB with excertion, SOB at rest, sputum, stridor, wheezing, other Gastrointestinal/Abdominal: Denies: no symptoms, abdomen distended, abdominal pain, black stools, tarry stools, blood in stool, constipated, diarrhea, difficulty swallowing, nausea, poor appetite, poor fluid intake, rectal bleeding , vomiting, other Genitourinary: Denies: no symptoms, burning, discharge, frequency, flank pain, hematuria, incontinence, pain, urgency, other Neurologic/Psychiatric: Denies: no symptoms, anxiety, depressed, emotional problems, headache, numbness, paresthesia, pre-existing deficit, seizure, tingling, tremors, weakness, other Hematologic/Lymphatic: Reports: anemia Allergies: Coded Allergies: GABAPENTIN (Verified Allergy, Unknown, 10/11/17) OLIVE OIL (Verified Adverse Reaction, Severe, SPASM IN THE COLON, 01/18/14) PREGABALIN (Verified Adverse Reaction, Intermediate, "hypernervous", ) ACETAMINOPHEN (Verified Adverse Reaction, Mild, IRRITABILITY AND ELEVATED BLOOD PRESSURE, 01/18/14) IBUPROFEN (Verified Adverse Reaction, Mild, IRRITABILITY AND ELEVATED BLOOD PRESSURE, 01/18/14) Uncoded Allergies: SSRI (Allergy, Unknown, 10/11/17) Subjective Irritable. Confused. Refusing some meds. Objective Last 24 Hour Vital Signs Date Time Temp Pulse Resp B/P (MAP) Pulse Ox O2 Delivery O2 Flow Rate FiO2 11/04/17 20:00 98.1 70 20 112/60 96 98.1 11/04/17 16:00 97.9 66 18 130/62 96 97.9 11/04/17 14:06 98.2 11/04/17 12:00 98.2 66 19 132/58 96 98.2 66 11/04/17 08:00 97.8 54 20 133/45 98 97.8 11/04/17 04:00 98.1 58 20 137/67 97 98.1 11/04/17 00:05 97.7 60 21 143/62 Room Air 97.7 Intake and Output 11/03/17 11/04/17 19:00 07:00 Intake Total 560 ml 220 ml Output Total 600 ml 600 ml Balance -40 ml -380 ml Intake Oral 450 ml IV Total 110 ml 220 ml Output Urine Total 600 ml 600 ml # Voids 3 # Bowel Movements 1 Height (Feet): 5 Height (Inches): 8.00 Weight (Pounds): 185 General Appearance: confused Respiratory/Chest: decreased breath sounds Abdomen: soft Giovany Wiggins MD Nov 04, 2017 22:51
--- NOTE | 2017-11-04 22:52 | General Progress Note ---
Assessment/Plan Assessment/Plan #. Anemia due to underlying chronic disease. --> Continue to closely monitor and trend. Hemoglobin goal is above 7 --> anemia workup reviewed. Iron 9, TIBC 127, B12 1791, Folate 41 --> Hemoglobin has been above goal, no prbc needed. #. Anemia of iron deficiency, potentially secondary to osteomyelitis. --> Monitor closely. Trend cbc. --> On iron supplement #. Anemia due to underlying kidney disease. --> Closely monitor, again improving. #. Leukocytosis, status post debridement, gram-negative jasmyn infection noted. --> Wbc count now WNL after antibiotic treatment. --> Remains on meropenem. Monitor closely. --> Infectious Disease Service following. #. Thrombocytosis, likely reactive process from underlying anemia, closely monitor for improvement. --> Resolved. #. Elevated creatinine, chronic kidney disease. #. Diabetes mellitus, on insulin sliding scale as needed as per primary team. #. Diastolic dysfunction. DC planning for SNF. Patient unable to take care of self at home. #. Encephalopathy. --> Pt unable to take care of self. Refuses to go home. Pending placement in SNF. --> Refusing some meds and treatment. Subjective Date patient seen: Nov 04, 2017 Constitutional: Denies: no symptoms, chills, diaphoresis, fever, malaise, weakness, other HEENT: Denies: no symptoms, eye pain, blurred vision, tearing, double vision, ear pain, ear discharge, nose pain, nose congestion, throat pain, throat swelling, mouth pain, mouth swelling, other Cardiovascular: Denies: no symptoms, chest pain, edema, irregular heart rate, lightheadedness, palpitations, syncope, other Respiratory: Denies: no symptoms, cough, orthopnea, shortness of breath, SOB with excertion, SOB at rest, sputum, stridor, wheezing, other Gastrointestinal/Abdominal: Denies: no symptoms, abdomen distended, abdominal pain, black stools, tarry stools, blood in stool, constipated, diarrhea, difficulty swallowing, nausea, poor appetite, poor fluid intake, rectal bleeding , vomiting, other Genitourinary: Denies: no symptoms, burning, discharge, frequency, flank pain, hematuria, incontinence, pain, urgency, other Neurologic/Psychiatric: Denies: no symptoms, anxiety, depressed, emotional problems, headache, numbness, paresthesia, pre-existing deficit, seizure, tingling, tremors, weakness, other Endocrine: Denies: no symptoms, excessive sweating, flushing, intolerance to cold, intolerance to heat, increased hunger, increased thirst, increased urine, unexplained weight gain, unexplained weight loss, other Hematologic/Lymphatic: Reports: anemia Allergies: Coded Allergies: GABAPENTIN (Verified Allergy, Unknown, 10/11/17) OLIVE OIL (Verified Adverse Reaction, Severe, SPASM IN THE COLON, 01/18/14) PREGABALIN (Verified Adverse Reaction, Intermediate, "hypernervous", ) ACETAMINOPHEN (Verified Adverse Reaction, Mild, IRRITABILITY AND ELEVATED BLOOD PRESSURE, 01/18/14) IBUPROFEN (Verified Adverse Reaction, Mild, IRRITABILITY AND ELEVATED BLOOD PRESSURE, 01/18/14) Uncoded Allergies: SSRI (Allergy, Unknown, 10/11/17) Subjective Encephalopathic. Noncooperative. H/H stable. Objective Last 24 Hour Vital Signs Date Time Temp Pulse Resp B/P (MAP) Pulse Ox O2 Delivery O2 Flow Rate FiO2 11/04/17 20:00 98.1 70 20 112/60 96 98.1 11/04/17 16:00 97.9 66 18 130/62 96 97.9 11/04/17 14:06 98.2 11/04/17 12:00 98.2 66 19 132/58 96 98.2 66 11/04/17 08:00 97.8 54 20 133/45 98 97.8 11/04/17 04:00 98.1 58 20 137/67 97 98.1 11/04/17 00:05 97.7 60 21 143/62 Room Air 97.7 Intake and Output 11/03/17 11/04/17 19:00 07:00 Intake Total 560 ml 220 ml Output Total 600 ml 600 ml Balance -40 ml -380 ml Intake Oral 450 ml IV Total 110 ml 220 ml Output Urine Total 600 ml 600 ml # Voids 3 # Bowel Movements 1 Height (Feet): 5 Height (Inches): 8.00 Weight (Pounds): 185 General Appearance: confused Respiratory/Chest: decreased breath sounds Abdomen: soft Edema: trace edema Giovany Wiggins MD Nov 04, 2017 22:52
[2017-11-05] VITALS: BP 126/50
[2017-11-05 04:00] VITALS: BP 123/51
[2017-11-05] MEDS: oxyCODONE 5mg IR tab ORAL PRN ×2 (04:08→16:19)
[2017-11-05] MEDS: oxyCONTIN 10mg tab ORAL SCH ×3 (06:02→21:52)
[2017-11-05] MEDS: NovoLOG Insulin Flexpen SUBQ SCH ×4 (06:08→21:00)
[2017-11-05 07:49] VITALS: BP 111/52
[2017-11-05 08:11] LABS: BASOPHILS % (AUTO) 1.7 % (0.0-2.0); EOSINOPHILS % (AUTO) 9.1 % (0.0-3.0); HEMATOCRIT 27.1 % (42.0-52.0); HEMOGLOBIN 8.7 G/DL (14.2-18.0); LYMPHOCYTES % (AUTO) 22.2 % (20.0-45.0); MEAN CORPUSCULAR VOLUME 78 FL (80-99); MONOCYTES % (AUTO) 8.2 % (1.0-10.0); NEUTROPHILS % (AUTO) 58.8 % (45.0-75.0); PLATELET COUNT 345 K/UL (150-450); RED BLOOD COUNT 3.47 M/UL (4.70-6.10); RED CELL DISTRIBUTION WIDTH 15.6 % (11.6-14.8); WHITE BLOOD COUNT 8.4 K/UL (4.8-10.8)
[2017-11-05 08:14] LABS: ALANINE AMINOTRANSFERASE 23 U/L (12-78); ALBUMIN 2.5 G/DL (3.4-5.0); ALKALINE PHOSPHATASE 97 U/L (46-116); ASPARTATE AMINO TRANSFERASE 23 U/L (15-37); BILIRUBIN,DIRECT 0.2 MG/DL (0.0-0.3); BILIRUBIN,TOTAL 0.6 MG/DL (0.2-1.0); PHOSPHORUS 3.4 MG/DL (2.5-4.9)
[2017-11-05 08:46] LABS: ANION GAP 7 mmol/L (5-15); BLOOD UREA NITROGEN 49 mg/dL (7-18); CALCIUM 7.9 MG/DL (8.5-10.1); CARBON DIOXIDE 27 MMOL/L (21-32); CHLORIDE 106 MMOL/L (98-107); CREATININE 1.8 MG/DL (0.55-1.30); SODIUM 140 MMOL/L (136-145)
[2017-11-05] MEDS: Doxazosin 1mg Tab ORAL SCH ×2 (09:00→17:29)
[2017-11-05] MEDS: Heparin 5000 units/ml inj SUBQ SCH ×2 (09:00→21:00)
[2017-11-05] MEDS: Docusate 100mg cap ORAL SCH ×3 (09:00→17:30)
[2017-11-05] MEDS: Tamsulosin 0.4mg cap ORAL SCH ×2 (09:00→17:30)
[2017-11-05] MEDS: Ascorbic Acid 500mg tab ORAL SCH (09:00)
[2017-11-05] MEDS: Vitamin D 1000 IU Tab ORAL SCH (09:12)
[2017-11-05] MEDS: Nephrovite tab (Rena-Vite) ORAL SCH (09:12)
[2017-11-05] MEDS: Tigecycline 50mg in D5W 110ml IVPB SCH (09:12)
[2017-11-05] MEDS: Analgesic Balm 15gm TOPIC SCH ×2 (09:14→18:00)
[2017-11-05] MEDS: Dakin's 0.125% Soln (Quarter Strength) 16oz TOPIC SCH (09:17)
[2017-11-05 12:00] VITALS: BP 139/60
--- NOTE | 2017-11-05 14:13 | Nephrology Progress Note ---
Assessment/Plan Problem List: (1) HTN (hypertension) (2) Diabetes mellitus (3) Ulcer of left heel (4) Renal insufficiency Assessment cr carlos above 3 now gradually lowering Foot ulcer, left left leg cellulitis, left heel ulcer, ? osteo, leukocytosis, lgt Renal insufficiency acute vs chronic Cr lowering now 1.5 Urinary retention: REFUSES NG Anemia UTI Plan fluid challenge Avoid Nephrotoxics Keep BP in check monitor renal parameters Anemia henry urine studies flomax start cardura Kidney FAMILIA Unremarkable kidneys. Negative for hydronephrosis Note inability of the patient to void with a bladder volume of 337 mL 2D echo :Left ventricular ejection fraction estimated to be 55-60%. No evidence of left ventricular hypertrophy. Subjective ROS Limited/Unobtainable: No Constitutional: Reports: malaise, weakness Objective Objective Last 24 Hour Vital Signs Date Time Temp Pulse Resp B/P (MAP) Pulse Ox O2 Delivery O2 Flow Rate FiO2 11/05/17 12:00 97.7 66 20 139/60 99 Room Air 97.7 11/05/17 07:49 97.7 73 18 111/52 96 Room Air 97.7 11/05/17 04:00 96.9 61 20 123/51 96 Room Air 96.9 11/05/17 00:00 97.9 65 20 126/50 97 97.9 11/04/17 20:00 98.1 70 20 112/60 96 98.1 11/04/17 16:00 97.9 66 18 130/62 96 97.9 Intake and Output 11/04/17 11/05/17 19:00 07:00 Intake Total 645 ml 580 ml Output Total 2100 ml Balance 645 ml -1520 ml Intake Oral 480 ml 360 ml IV Total 165 ml 220 ml Output Urine Total 2100 ml # Voids 5 4 # Bowel Movements 3 Laboratory Tests 11/05/17 06:19: White Blood Count 8.4, Red Blood Count 3.47L, Hemoglobin 8.7L, Hematocrit 27.1L , Mean Corpuscular Volume 78L, Mean Corpuscular Hemoglobin 25.0L, Mean Corpuscular Hemoglobin Concent 32.0, Red Cell Distribution Width 15.6H, Platelet Count 345, Mean Platelet Volume 5.8L, Neutrophils (%) (Auto) 58.8, Lymphocytes (%) (Auto) 22.2, Monocytes (%) (Auto) 8.2, Eosinophils (%) (Auto) 9.1H, Basophils (%) (Auto) 1.7, Sodium Level 140, Potassium Level 4.0, Chloride Level 106, Carbon Dioxide Level 27, Anion Gap 7, Blood Urea Nitrogen 49H, Creatinine 1.8H, Estimat Glomerular Filtration Rate , Glucose Level 130H, Calcium Level 7.9L, Phosphorus Level 3.4, Magnesium Level 2.0, Total Bilirubin 0.6, Direct Bilirubin 0.2, Aspartate Amino Transf (AST/SGOT) 23, Alanine Aminotransferase (ALT/SGPT) 23, Alkaline Phosphatase 97, Total Protein 6.5, Albumin 2.5L Height (Feet): 5 Height (Inches): 8.00 Weight (Pounds): 185 General Appearance: no apparent distress Cardiovascular: normal rate Respiratory/Chest: decreased breath sounds Abdomen: distended Objective no other changes IHSAN REGALADO 24, 2018 14:13
[2017-11-05 16:00] VITALS: BP 152/63
[2017-11-05] MEDS: Ertapenem 0.5 GM in NS 55 ML IVPB SCH (16:18)
--- NOTE | 2017-11-05 16:57 | Infectious Diseases Prog Note ---
Assessment/Plan Assessment/Plan ASSESSMENT AND PLAN: 1. bacteroides bacteremia, proteus/klebsiella/vre left heel/foot wound infection and osteomyelitis on MRI, sepsis, leukocytosis, ? fungal uti - elevated CK noted, ? secondary to fall vs daptomycin - s/p debridement, debridement as needed per podiatry - leg redness better, chronic edema - clinically better, podiatry note reviewed and wounds and cellulitis improving - continue wound care per podiatry - f/u labs, surveillance blood cultures negative, ck now wnl - invanz and tygecycline for now, because of elevated ck, may rechallenge with daptomycin at later date - abx started on 10/14, plan on 6 week course - day #22/42 - vre colonized - fungal uti s/p diflucan 2. Elevated creatinine, chronic renal failure, acute kidney injury, elevated ck , s/p fall, ? rhabdomyolysis 3. Anemia. 4. The patient with history of diabetes. 5. Hypertension. 6. Blood sugar and blood pressure treatment per primary. 7. Benign prostatic hypertrophy. 8. Atherosclerotic cardiovascular disease. 9. Chronic diastolic congestive heart failure. 10. Anemia. 11. Dizziness, headaches, weakness, and fatigue. 12. Allergies, acetaminophen, gabapentin, ibuprofen, Elavil, pregabalin, and selective serotonin reuptake inhibitors. 13. Social history negative. 14. Family history noncontributory. 15. MAR was noted. 16. Case discussed with RN. 17. Continue treatment per primary consultants. 18. Orders were entered. 19. Notes and records noted. Subjective Constitutional: Denies: fever HEENT: Denies: congestion Respiratory: Denies: shortness of breath Cardiovascular: Denies: chest pain Gastrointestinal/Abdominal: Denies: nausea, vomiting, diarrhea Genitourinary: Denies: dysuria Neurologic: Denies: headache Psychiatric: Denies: depression Skin: Denies: rash Hematologic: Denies: bleeding Musculoskeletal: Denies: pain Allergies: Coded Allergies: GABAPENTIN (Verified Allergy, Unknown, 10/11/17) OLIVE OIL (Verified Adverse Reaction, Severe, SPASM IN THE COLON, 01/18/14) PREGABALIN (Verified Adverse Reaction, Intermediate, "hypernervous", ) ACETAMINOPHEN (Verified Adverse Reaction, Mild, IRRITABILITY AND ELEVATED BLOOD PRESSURE, 01/18/14) IBUPROFEN (Verified Adverse Reaction, Mild, IRRITABILITY AND ELEVATED BLOOD PRESSURE, 01/18/14) Uncoded Allergies: SSRI (Allergy, Unknown, 10/11/17) Objective Vital Signs Last 24 Hour Vital Signs Date Time Temp Pulse Resp B/P (MAP) Pulse Ox O2 Delivery O2 Flow Rate FiO2 11/05/17 16:00 97.7 62 18 152/63 97 Room Air 97.7 11/05/17 14:51 97.7 11/05/17 12:00 97.7 66 20 139/60 99 Room Air 97.7 11/05/17 07:49 97.7 73 18 111/52 96 Room Air 97.7 11/05/17 04:00 96.9 61 20 123/51 96 Room Air 96.9 11/05/17 00:00 97.9 65 20 126/50 97 97.9 11/04/17 20:00 98.1 70 20 112/60 96 98.1 Height (Feet): 5 Height (Inches): 8.00 Weight (Pounds): 185 General Appearance: no acute distress HEENT: normocephalic, atraumatic, anicteric, mucous membranes moist Respiratory/Chest: lungs clear, normal breath sounds, no respiratory distress, no accessory muscle use Cardiovascular: normal rate, regular rhythm, no gallop/murmur, no JVD Abdomen: normal bowel sounds, soft, non tender, no organomegaly, non distended Genitourinary: other - no connolly Extremities: no cyanosis Skin: no rash Neurologic/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 No acute process otherwise. MRI left foot and ankle - Impression: Positive for progressive osteomyelitis of the posterior calcaneus, since prior study of 08/02/2017 Increasing ulceration of the overlying soft tissues, with possible exposure of the medial aspect of the calcaneal tuberosity. Small amount of gas within the medial soft tissues,. The related open wound or could indicate infection by gas-forming organism Complete tear with retraction of the calcaneal tendon, as described. Fluid in the tibiotalar joint. Probably reactive secondary to the above Diffuse edema of the subcutaneous fat. This could be due to cellulitis or could be related to hemodynamic abnormalities Other findings as noted Findings discussed by phone with Dr. Prieto at the time of interpretation Microbiology Date/Time Source Procedure Growth Status 10/14/17 08:50 Blood Blood Culture - Final NO GROWTH AFTER 5 DAYS Complete 10/11/17 17:00 Nasal Nares MRSA Culture - Final NO METHICILLIN RESISTANT STAPH AUREUS... Complete 10/30/17 04:15 Urine,Clean Catch Urine Culture - Final Ejssie Albicans Complete 10/13/17 19:20 Foot Left Gram Stain - Final Complete 10/13/17 19:20 Aerobic Culture - Final Klebsiella Pneumoniae Proteus Mirabilis Enterococcus Faecium - Vre Complete 10/13/17 19:20 Foot Left Anaerobic Culture - Final NO ANAEROBES ISOLATED Complete Laboratory Tests Test 11/05/17 06:19 White Blood Count 8.4 K/UL (4.8-10.8) Red Blood Count 3.47 M/UL (4.70-6.10) L Hemoglobin 8.7 G/DL (14.2-18.0) L Hematocrit 27.1 % (42.0-52.0) L Mean Corpuscular Volume 78 FL (80-99) L Mean Corpuscular Hemoglobin 25.0 PG (27.0-31.0) L Mean Corpuscular Hemoglobin Concent 32.0 G/DL (32.0-36.0) Red Cell Distribution Width 15.6 % (11.6-14.8) H Platelet Count 345 K/UL (150-450) Mean Platelet Volume 5.8 FL (6.5-10.1) L Neutrophils (%) (Auto) 58.8 % (45.0-75.0) Lymphocytes (%) (Auto) 22.2 % (20.0-45.0) Monocytes (%) (Auto) 8.2 % (1.0-10.0) Eosinophils (%) (Auto) 9.1 % (0.0-3.0) H Basophils (%) (Auto) 1.7 % (0.0-2.0) Sodium Level 140 MMOL/L (136-145) Potassium Level 4.0 MMOL/L (3.5-5.1) Chloride Level 106 MMOL/L (98-107) Carbon Dioxide Level 27 MMOL/L (21-32) Anion Gap 7 mmol/L (5-15) Blood Urea Nitrogen 49 mg/dL (7-18) H Creatinine 1.8 MG/DL (0.55-1.30) H Estimat Glomerular Filtration Rate mL/min (>60) Glucose Level 130 MG/DL (74-106) H Calcium Level 7.9 MG/DL (8.5-10.1) L Phosphorus Level 3.4 MG/DL (2.5-4.9) Magnesium Level 2.0 MG/DL (1.8-2.4) Total Bilirubin 0.6 MG/DL (0.2-1.0) Direct Bilirubin 0.2 MG/DL (0.0-0.3) Aspartate Amino Transf (AST/SGOT) 23 U/L (15-37) Alanine Aminotransferase (ALT/SGPT) 23 U/L (12-78) Alkaline Phosphatase 97 U/L (46-116) Total Protein 6.5 G/DL (6.4-8.2) Albumin 2.5 G/DL (3.4-5.0) L Current Medications Medications (Trade) Dose Ordered Sig/Dari Route PRN Reason Start Time Stop Time Status Last Admin Dose Admin Acetaminophen (Tylenol) 650 mg Q4H PRN ORAL Mild Pain (Scale 1-3), fever 10/11/17 16:45 11/10/17 16:44 Ascorbic Acid (Vitamin C) 500 mg DAILY ORAL 10/25/17 09:00 11/24/17 08:59 11/04/17 09:08 Bisacodyl (Dulcolax) 10 mg HSPRN PRN RECTAL Constipation 10/11/17 17:15 11/10/17 17:14 Chlorhexidine Gluconate (Sarah-Hex 2%) 1 applic DAILY@1999 TOPIC 10/31/17 20:00 11/30/17 19:59 11/04/17 20:44 Clotrimazole (Lotrimin) 1 applic EVERY 12 HOURS TOPIC 10/14/17 21:00 11/13/17 20:59 11/05/17 09:13 Dextrose (Dextrose 50%) STAT PRN IV Hypoglycemia 10/11/17 16:45 11/10/17 16:44 Diphenhydramine HCl (Benadryl) 25 mg Q6H PRN ORAL Itching 10/22/17 23:45 11/21/17 23:44 10/23/17 04:04 Docusate Sodium (Colace) 100 mg TID ORAL 10/12/17 13:30 11/10/17 13:29 11/04/17 17:33 Doxazosin Mesylate (Cardura) 2 mg BID ORAL 11/02/17 18:00 11/15/17 12:59 11/03/17 18:10 Ertapenem 0.5 gm/ Sodium Chloride 55 ml @ 110 mls/hr Q24H IVPB 11/03/17 16:00 11/08/17 16:00 11/05/17 16:18 Finasteride (Proscar) 5 mg DAILY ORAL 10/12/17 09:00 11/11/17 08:59 11/05/17 09:12 Heparin Sodium (Porcine) (Heparin 5000 units/ml) 5,000 units EVERY 12 HOURS SUBQ 10/11/17 21:00 11/10/17 20:59 10/24/17 22:35 Insulin Aspart (NovoLOG) BEFORE MEALS AND HS SUBQ 10/11/17 21:00 11/10/17 20:59 11/05/17 11:30 Insulin Detemir (Levemir) 12 units Q24H SUBQ 10/16/17 18:00 11/15/17 17:59 11/04/17 17:35 Menthol/Methyl Salicylate (Bengay) 1 applic BID TOPIC 10/18/17 20:00 11/17/17 19:59 11/05/17 09:14 Mirtazapine (Remeron) 15 mg BEDTIME ORAL 10/11/17 21:00 11/10/17 20:59 10/28/17 22:04 Ondansetron HCl (Zofran) 4 mg Q6H PRN IVP Nausea & Vomiting 10/11/17 16:45 11/10/17 16:44 Oxycodone HCl (OxyCONTIN) 10 mg EVERY 8 HOURS ORAL 11/01/17 22:00 11/08/17 21:59 11/05/17 14:51 Oxycodone HCl (Roxicodone) 5 mg Q3H PRN ORAL Breakthrough Pain 11/01/17 20:45 11/08/17 20:44 11/05/17 16:19 Polyethylene Glycol (Miralax) 17 gm HSPRN PRN ORAL Constipation 10/11/17 16:45 11/10/17 16:44 Risperidone (RisperDAL) 1 mg BEDTIME ORAL 10/14/17 21:00 11/13/17 20:59 10/24/17 22:34 Sodium Hypochlorite (Dakin's Quarter Strength) 1 applic DAILY TOPIC 10/20/17 09:00 11/19/17 08:59 11/05/17 09:17 Tamsulosin HCl (Flomax) 0.4 mg BID ORAL 10/12/17 13:30 11/10/17 13:29 11/04/17 17:33 Tigecycline 50 mg/ Dextrose 110 ml @ 220 mls/hr Q12HR@0800,2000 IVPB 10/31/17 08:00 11/07/17 07:59 11/05/17 09:12 Vitamin B Complex/ Vit C/Folic Acid (Nephrovite) 1 tab DAILY ORAL 10/12/17 09:00 11/11/17 08:59 11/05/17 09:12 Vitamin D (Vitamin D) 2,000 intlu DAILY ORAL 10/22/17 09:00 11/21/17 08:59 11/05/17 09:12 LARON HERNANDEZ Nov 05, 2017 16:57
[2017-11-05] MEDS: Levemir Flexpen SUBQ SCH (17:36)
--- NOTE | 2017-11-05 19:50 | General Progress Note ---
Assessment/Plan Problem List: (1) hyperkalemia, resolved (2) Surgical abdomen ICD Codes: R10.0 - Acute abdomen SNOMED: 7715182 (3) Severe sepsis ICD Codes: A41.9 - Sepsis, unspecified organism; R65.20 - Severe sepsis without septic shock SNOMED: 26966710 (4) Chronic abdominal wound infection ICD Codes: S31.109A - Unspecified open wound of abdominal wall, unspecified quadrant without penetration into peritoneal cavity, initial encounter; L08.9 - Local infection of the skin and subcutaneous tissue, unspecified SNOMED: 82521718 (5) MISHEL (acute kidney injury) ICD Codes: N17.9 - Acute kidney failure, unspecified SNOMED: 59577451 (6) Ulcer SNOMED: 418571633 (7) Renal insufficiency ICD Codes: N28.9 - Disorder of kidney and ureter, unspecified SNOMED: 289053577, 896856973 (8) Foot ulcer, left ICD Codes: L97.529 - Non-pressure chronic ulcer of other part of left foot with unspecified severity SNOMED: 52340096, 206691069 Qualifiers: Qualified Codes: L97.529 - Non-pressure chronic ulcer of other part of left foot with unspecified severity (9) Ulcer of left heel ICD Codes: L97.429 - Non-pressure chronic ulcer of left heel and midfoot with unspecified severity SNOMED: 358743060 (10) Diabetic neuropathy ICD Codes: E11.40 - Type 2 diabetes mellitus with diabetic neuropathy, unspecified SNOMED: 60893909, 598506059, 561439736 (11) Diabetic nephropathy ICD Codes: E11.21 - Type 2 diabetes mellitus with diabetic nephropathy SNOMED: 53647406, 624447829 Qualifiers: Qualified Codes: E11.21 - Type 2 diabetes mellitus with diabetic nephropathy (12) Chronic diastolic (congestive) heart failure ICD Codes: I50.32 - Chronic diastolic (congestive) heart failure SNOMED: 23386657, 461613256 (13) Charcot foot due to diabetes mellitus ICD Codes: E11.610 - Type 2 diabetes mellitus with diabetic neuropathic arthropathy SNOMED: 60917652, 370502087, 435611366 (14) DM2 (diabetes mellitus, type 2) ICD Codes: E11.9 - Type 2 diabetes mellitus without complications SNOMED: 61509148 (15) Fracture of left hip requiring operative repair ICD Codes: S72.002A - Fracture of unspecified part of neck of left femur, initial encounter for closed fracture SNOMED: 846974830 (16) CKD stage 3 (17) lives in snf (18) ADHD (attention deficit hyperactivity disorder) ICD Codes: F90.9 - Attention-deficit hyperactivity disorder, unspecified type SNOMED: 651783264 (19) HTN (hypertension) ICD Codes: I10 - Essential (primary) hypertension SNOMED: 70336389 (20) Diabetes mellitus ICD Codes: E11.9 - Type 2 diabetes mellitus without complications SNOMED: 47386590 (21) Abdominal abscess ICD Codes: K65.1 - Peritoneal abscess SNOMED: 56455558 (22) fall with head trauma (23) Medical non-compliance ICD Codes: Z91.19 - Patient's noncompliance with other medical treatment and regimen SNOMED: 932567537 (24) Dementia with behavioral disturbance ICD Codes: F03.91 - Unspecified dementia with behavioral disturbance SNOMED: 2330014943818 (25) Acute on chronic diastolic (congestive) heart failure ICD Codes: I50.33 - Acute on chronic diastolic (congestive) heart failure SNOMED: 21282705, 719190296 (26) Gram-negative bacteremia ICD Codes: R78.81 - Bacteremia SNOMED: 294396902910 (27) Progressive osteomyelitis of the posterior calcaneus (28) Complete tear with retraction of the calcaneal tendon (29) Chronic diabetic ulcer right foot (30) MISHEL on CKD (31) Hyponatremia ICD Codes: E87.1 - Hypo-osmolality and hyponatremia SNOMED: 91654590 (32) L heel diabetic ulcer with concern for osteomyelitis (33) Cellulitis of left lower extremity ICD Codes: L03.116 - Cellulitis of left lower limb SNOMED: 577875863 (34) Sepsis ICD Codes: A41.9 - Sepsis, unspecified organism SNOMED: 97017151 Status: stable Assessment/Plan Podiatry, ID, renal consulted s/p vanco (10/11-10/16) Cont ertapenem + tigecycline per ID Will need total of 6 weeks of IV abx per ID given osteomyelitis - currently day # Daptomycin was d/c'd on 10/30 given elevated CK level s/p cefepime and flagyl (10/11-10/14) F/u cultures--blood culture showing GNR, wound culture showing Klebsiella and Proteus F/u repeat blood cultures--ngtd PICC line placed 10/17/17 Wound care per podiatry Check MRI L foot--shows progressive osteomyelitis, heel ulceration, soft tissue gas, complete tear of Achilles tendon s/p incision and drainage left foot, excisional debridement to the level of muscle left foot, and partial calcanectomy left foot on 10/13/17 NWB LLE Off wound vac now per podiatry Check renal U/S--shows bladder volume 337mL, refused connolly Flomax 0.4mg BID + finasteride 5mg daily Check TTE--EF 55-60% Pain control, bowel regimen Supportive care Appreciate psych consult Cont SNF ayes [facility] once authorization for SNF obtained Pt unable to go home as he lives alone, does have planisher but only 3h per day which is 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 Disposition: Once the patient is stable to leave the hospital, I anticipate the patient will likely be discharged to the following environment: back to SNF Discussed with patient/family, nursing staff, SW/CM, podiatry, ID regarding clinical status, treatment course, and disposition planning. D/w ID re abx on d/ c. D/w podiatry re wound care, d/c plan. D/w CM re dispo Time of note may not reflect time of encounter Subjective Date patient seen: Nov 05, 2017 Time patient seen: 12:00 Allergies: Coded Allergies: GABAPENTIN (Verified Allergy, Unknown, 10/11/17) OLIVE OIL (Verified Adverse Reaction, Severe, SPASM IN THE COLON, 01/18/14) PREGABALIN (Verified Adverse Reaction, Intermediate, "hypernervous", ) ACETAMINOPHEN (Verified Adverse Reaction, Mild, IRRITABILITY AND ELEVATED BLOOD PRESSURE, 01/18/14) IBUPROFEN (Verified Adverse Reaction, Mild, IRRITABILITY AND ELEVATED BLOOD PRESSURE, 01/18/14) Uncoded Allergies: SSRI (Allergy, Unknown, 10/11/17) Subjective - doing well - AF, HDS - pending SNF placement Objective Last 24 Hour Vital Signs Date Time Temp Pulse Resp B/P (MAP) Pulse Ox O2 Delivery O2 Flow Rate FiO2 11/05/17 16:00 97.7 62 18 152/63 97 Room Air 97.7 11/05/17 14:51 97.7 11/05/17 12:00 97.7 66 20 139/60 99 Room Air 97.7 11/05/17 07:49 97.7 73 18 111/52 96 Room Air 97.7 11/05/17 04:00 96.9 61 20 123/51 96 Room Air 96.9 11/05/17 00:00 97.9 65 20 126/50 97 97.9 11/04/17 20:00 98.1 70 20 112/60 96 98.1 Intake and Output 11/04/17 11/05/17 19:00 07:00 Intake Total 645 ml 580 ml Output Total 2100 ml Balance 645 ml -1520 ml Intake Oral 480 ml 360 ml IV Total 165 ml 220 ml Output Urine Total 2100 ml # Voids 5 4 # Bowel Movements 3 Laboratory Tests 11/05/17 06:19: White Blood Count 8.4, Red Blood Count 3.47L, Hemoglobin 8.7L, Hematocrit 27.1L , Mean Corpuscular Volume 78L, Mean Corpuscular Hemoglobin 25.0L, Mean Corpuscular Hemoglobin Concent 32.0, Red Cell Distribution Width 15.6H, Platelet Count 345, Mean Platelet Volume 5.8L, Neutrophils (%) (Auto) 58.8, Lymphocytes (%) (Auto) 22.2, Monocytes (%) (Auto) 8.2, Eosinophils (%) (Auto) 9.1H, Basophils (%) (Auto) 1.7, Sodium Level 140, Potassium Level 4.0, Chloride Level 106, Carbon Dioxide Level 27, Anion Gap 7, Blood Urea Nitrogen 49H, Creatinine 1.8H, Estimat Glomerular Filtration Rate , Glucose Level 130H, Calcium Level 7.9L, Phosphorus Level 3.4, Magnesium Level 2.0, Total Bilirubin 0.6, Direct Bilirubin 0.2, Aspartate Amino Transf (AST/SGOT) 23, Alanine Aminotransferase (ALT/SGPT) 23, Alkaline Phosphatase 97, Total Protein 6.5, Albumin 2.5L Height (Feet): 5 Height (Inches): 8.00 Weight (Pounds): 185 General Appearance: no apparent distress, alert EENT: PERRL/EOMI Neck: non-tender, normal alignment Cardiovascular: normal peripheral pulses, normal rate, regular rhythm Respiratory/Chest: chest wall non-tender, lungs clear, normal breath sounds Abdomen: normal bowel sounds, non tender, soft Edema: moderate edema 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 Nov 05, 2017 19:50
[2017-11-05 20:00] VITALS: BP 155/65
[2017-11-05] MEDS: Tigecycline 50 MG in D5W 110 ML IVPB SCH (20:00)
[2017-11-05] MEDS: Dyna-Hex 2% Top Sol 2oz TOPIC SCH (21:51)
--- NOTE | 2017-11-05 22:45 | General Progress Note ---
Assessment/Plan Assessment/Plan #. Anemia due to underlying chronic disease. --> Continue to closely monitor and trend. Hemoglobin goal is above 7 --> anemia workup reviewed. Iron 9, TIBC 127, B12 1791, Folate 41 --> Hemoglobin has been above goal, no prbc needed. #. Anemia of iron deficiency, potentially secondary to osteomyelitis. --> Monitor closely. Trend cbc. --> On iron supplement. Improved. #. Anemia due to underlying kidney disease. --> Closely monitor, again improving. #. Leukocytosis, status post debridement, gram-negative jasmyn infection noted. --> Wbc count now WNL after antibiotic treatment. --> Remains on meropenem. Monitor closely. --> Infectious Disease Service following. #. Thrombocytosis, likely reactive process from underlying anemia, closely monitor for improvement. --> Resolved. #. Elevated creatinine, chronic kidney disease. #. Diabetes mellitus, on insulin sliding scale as needed as per primary team. #. Diastolic dysfunction. DC planning for SNF. Patient unable to take care of self at home. #. Encephalopathy. --> Pt unable to take care of self. Refuses to go home. Pending placement in SNF. --> Refusing some meds and treatment. Subjective Date patient seen: Nov 05, 2017 Constitutional: Denies: no symptoms, chills, diaphoresis, fever, malaise, weakness, other HEENT: Denies: no symptoms, eye pain, blurred vision, tearing, double vision, ear pain, ear discharge, nose pain, nose congestion, throat pain, throat swelling, mouth pain, mouth swelling, other Cardiovascular: Denies: no symptoms, chest pain, edema, irregular heart rate, lightheadedness, palpitations, syncope, other Respiratory: Denies: no symptoms, cough, orthopnea, shortness of breath, SOB with excertion, SOB at rest, sputum, stridor, wheezing, other Gastrointestinal/Abdominal: Denies: no symptoms, abdomen distended, abdominal pain, black stools, tarry stools, blood in stool, constipated, diarrhea, difficulty swallowing, nausea, poor appetite, poor fluid intake, rectal bleeding , vomiting, other Genitourinary: Denies: no symptoms, burning, discharge, frequency, flank pain, hematuria, incontinence, pain, urgency, other Neurologic/Psychiatric: Denies: no symptoms, anxiety, depressed, emotional problems, headache, numbness, paresthesia, pre-existing deficit, seizure, tingling, tremors, weakness, other Hematologic/Lymphatic: Reports: anemia Allergies: Coded Allergies: GABAPENTIN (Verified Allergy, Unknown, 10/11/17) OLIVE OIL (Verified Adverse Reaction, Severe, SPASM IN THE COLON, 01/18/14) PREGABALIN (Verified Adverse Reaction, Intermediate, "hypernervous", ) ACETAMINOPHEN (Verified Adverse Reaction, Mild, IRRITABILITY AND ELEVATED BLOOD PRESSURE, 01/18/14) IBUPROFEN (Verified Adverse Reaction, Mild, IRRITABILITY AND ELEVATED BLOOD PRESSURE, 01/18/14) Uncoded Allergies: SSRI (Allergy, Unknown, 10/11/17) Subjective Encephalopathic. No new events overnight. Pending placement in SNF Objective Last 24 Hour Vital Signs Date Time Temp Pulse Resp B/P (MAP) Pulse Ox O2 Delivery O2 Flow Rate FiO2 11/05/17 20:00 98.1 65 20 155/65 96 98.1 11/05/17 16:00 97.7 62 18 152/63 97 Room Air 97.7 11/05/17 14:51 97.7 11/05/17 12:00 97.7 66 20 139/60 99 Room Air 97.7 11/05/17 07:49 97.7 73 18 111/52 96 Room Air 97.7 11/05/17 04:00 96.9 61 20 123/51 96 Room Air 96.9 11/05/17 00:00 97.9 65 20 126/50 97 97.9 Intake and Output 11/04/17 11/05/17 19:00 07:00 Intake Total 645 ml 580 ml Output Total 2100 ml Balance 645 ml -1520 ml Intake Oral 480 ml 360 ml IV Total 165 ml 220 ml Output Urine Total 2100 ml # Voids 5 4 # Bowel Movements 3 Laboratory Tests 11/05/17 06:19: White Blood Count 8.4, Red Blood Count 3.47L, Hemoglobin 8.7L, Hematocrit 27.1L , Mean Corpuscular Volume 78L, Mean Corpuscular Hemoglobin 25.0L, Mean Corpuscular Hemoglobin Concent 32.0, Red Cell Distribution Width 15.6H, Platelet Count 345, Mean Platelet Volume 5.8L, Neutrophils (%) (Auto) 58.8, Lymphocytes (%) (Auto) 22.2, Monocytes (%) (Auto) 8.2, Eosinophils (%) (Auto) 9.1H, Basophils (%) (Auto) 1.7, Sodium Level 140, Potassium Level 4.0, Chloride Level 106, Carbon Dioxide Level 27, Anion Gap 7, Blood Urea Nitrogen 49H, Creatinine 1.8H, Estimat Glomerular Filtration Rate , Glucose Level 130H, Calcium Level 7.9L, Phosphorus Level 3.4, Magnesium Level 2.0, Total Bilirubin 0.6, Direct Bilirubin 0.2, Aspartate Amino Transf (AST/SGOT) 23, Alanine Aminotransferase (ALT/SGPT) 23, Alkaline Phosphatase 97, Total Protein 6.5, Albumin 2.5L Height (Feet): 5 Height (Inches): 8.00 Weight (Pounds): 185 General Appearance: confused Respiratory/Chest: decreased breath sounds Abdomen: soft Giovany Wiggins MD Nov 05, 2017 22:45
[2017-11-06] VITALS: BP_SYST 139; BP_SYST 145; BP_DIAS 70; BP_DIAS 72
[2017-11-06 04:00] VITALS: BP 112/70
[2017-11-06] MEDS: oxyCODONE 5mg IR tab ORAL PRN (04:00)
[2017-11-06] MEDS: oxyCONTIN 10mg tab ORAL SCH ×3 (05:57→21:31)
[2017-11-06 06:27] LABS: BASOPHILS % (AUTO) 1.7 % (0.0-2.0); EOSINOPHILS % (AUTO) 10.7 % (0.0-3.0); HEMOGLOBIN 8.7 G/DL (14.2-18.0); MEAN CORPUSCULAR VOLUME 77 FL (80-99); MONOCYTES % (AUTO) 8.2 % (1.0-10.0); NEUTROPHILS % (AUTO) 56.4 % (45.0-75.0); PLATELET COUNT 346 K/UL (150-450); RED BLOOD COUNT 3.51 M/UL (4.70-6.10); RED CELL DISTRIBUTION WIDTH 15.6 % (11.6-14.8); WHITE BLOOD COUNT 7.4 K/UL (4.8-10.8)
[2017-11-06] MEDS: NovoLOG Insulin Flexpen SUBQ SCH ×4 (06:30→20:31)
[2017-11-06 06:48] LABS: ANION GAP 8 mmol/L (5-15); BLOOD UREA NITROGEN 41 mg/dL (7-18); CALCIUM 8.1 MG/DL (8.5-10.1); CARBON DIOXIDE 28 MMOL/L (21-32); CHLORIDE 105 MMOL/L (98-107); CREATININE 1.6 MG/DL (0.55-1.30); POTASSIUM 3.7 MMOL/L (3.5-5.1); SODIUM 141 MMOL/L (136-145)
[2017-11-06 08:00] VITALS: BP 160/69
[2017-11-06] MEDS: Heparin 5000 units/ml inj SUBQ SCH ×2 (09:00→21:00)
[2017-11-06] MEDS: Analgesic Balm 15gm TOPIC SCH ×2 (09:03→17:46)
[2017-11-06] MEDS: Tigecycline 50 MG in D5W 110 ML IVPB SCH ×2 (09:03→20:09)
[2017-11-06] MEDS: Tamsulosin 0.4mg cap ORAL SCH ×2 (09:06→17:43)
[2017-11-06] MEDS: Docusate 100mg cap ORAL SCH ×3 (09:06→17:43)
[2017-11-06] MEDS: Nephrovite tab (Rena-Vite) ORAL SCH (09:06)
[2017-11-06] MEDS: Doxazosin 1mg Tab ORAL SCH ×2 (09:06→17:43)
[2017-11-06] MEDS: Dakin's 0.125% Soln (Quarter Strength) 16oz TOPIC SCH (09:06)
[2017-11-06] MEDS: Vitamin D 1000 IU Tab ORAL SCH (09:07)
[2017-11-06] MEDS: Ascorbic Acid 500mg tab ORAL SCH (09:08)
--- NOTE | 2017-11-06 09:12 | Nephrology Progress Note ---
Assessment/Plan Problem List: (1) HTN (hypertension) (2) Diabetes mellitus (3) Ulcer of left heel (4) Renal insufficiency Assessment cr carlos above 3 now gradually lowering Foot ulcer, left left leg cellulitis, left heel ulcer, ? osteo, leukocytosis, lgt Renal insufficiency acute vs chronic Cr lowering now 1.6 Urinary retention: REFUSES NG Anemia UTI Plan fluid challenge Avoid Nephrotoxics Keep BP in check monitor renal parameters Anemia henry urine studies flomax start [facility] Unremarkable kidneys. Negative for hydronephrosis Note inability of the patient to void with a bladder volume of 337 mL 2D echo :Left ventricular ejection fraction estimated to be 55-60%. No evidence of left ventricular hypertrophy. Subjective ROS Limited/Unobtainable: No Constitutional: Reports: malaise Objective Objective Last 24 Hour Vital Signs Date Time Temp Pulse Resp B/P (MAP) Pulse Ox O2 Delivery O2 Flow Rate FiO2 11/06/17 08:00 97.5 68 20 160/69 96 97.5 11/06/17 04:00 97.7 64 20 112/70 96 97.7 11/06/17 00:00 98.5 72 20 145/70 96 98.5 11/05/17 20:00 98.1 65 20 155/65 96 98.1 11/05/17 16:00 97.7 62 18 152/63 97 Room Air 97.7 11/05/17 14:51 97.7 11/05/17 12:00 97.7 66 20 139/60 99 Room Air 97.7 Intake and Output 11/05/17 11/06/17 19:00 07:00 Intake Total 800 ml 460 ml Output Total 400 ml 400 ml Balance 400 ml 60 ml Intake Oral 800 ml 240 ml IV Total 220 ml Output Urine Total 400 ml 400 ml # Voids 2 Laboratory Tests 11/06/17 06:05: White Blood Count 7.4, Red Blood Count 3.51L, Hemoglobin 8.7L, Hematocrit 27.0L , Mean Corpuscular Volume 77L, Mean Corpuscular Hemoglobin 24.7L, Mean Corpuscular Hemoglobin Concent 32.1, Red Cell Distribution Width 15.6H, Platelet Count 346, Mean Platelet Volume 6.5, Neutrophils (%) (Auto) 56.4, Lymphocytes (%) (Auto) 23.0, Monocytes (%) (Auto) 8.2, Eosinophils (%) (Auto) 10.7H, Basophils (%) (Auto) 1.7, Sodium Level 141, Potassium Level 3.7, Chloride Level 105, Carbon Dioxide Level 28, Anion Gap 8, Blood Urea Nitrogen 41H, Creatinine 1.6H, Estimat Glomerular Filtration Rate , Glucose Level 76, Calcium Level 8.1L Height (Feet): 5 Height (Inches): 8.00 Weight (Pounds): 185 General Appearance: no apparent distress Respiratory/Chest: decreased breath sounds Abdomen: soft Objective no other changes IHSAN REGALADO Nov 06, 2017 09:11
[2017-11-06 12:00] VITALS: BP 127/57
[2017-11-06] MEDS: Ertapenem 1gm in NS 55ml IVPB SCH (15:52)
[2017-11-06 16:00] VITALS: BP 128/56
[2017-11-06] MEDS: Levemir Flexpen SUBQ SCH (17:45)
[2017-11-06 20:00] VITALS: BP 143/45
[2017-11-06] MEDS: Dyna-Hex 2% Top Sol 2oz TOPIC SCH (20:09)
--- NOTE | 2017-11-06 23:09 | General Progress Note ---
Assessment/Plan Assessment/Plan #. Anemia due to underlying chronic disease. --> Continue to closely monitor and trend. Hemoglobin goal is above 7 --> anemia workup reviewed. Iron 9, TIBC 127, B12 1791, Folate 41 --> Hemoglobin has been above goal, no prbc needed. Hemoglobin levels remain stable. #. Anemia of iron deficiency, potentially secondary to osteomyelitis. --> Monitor closely. Trend cbc. --> On iron supplement. Improved. #. Anemia due to underlying kidney disease. --> Closely monitor, again improving. #. Leukocytosis, status post debridement, gram-negative jasmyn infection noted. --> Wbc count now WNL after antibiotic treatment. --> Remains on meropenem. Monitor closely. --> Infectious Disease Service following. #. Thrombocytosis, likely reactive process from underlying anemia, closely monitor for improvement. --> Resolved. #. Elevated creatinine, chronic kidney disease. #. Diabetes mellitus, on insulin sliding scale as needed as per primary team. #. Diastolic dysfunction. DC planning for SNF. Patient unable to take care of self at home. #. Encephalopathy. --> Pt unable to take care of self. Refuses to go home. Pending placement in SNF. --> Refusing some meds and treatment. Subjective Date patient seen: Nov 06, 2017 Constitutional: Denies: no symptoms, chills, diaphoresis, fever, malaise, weakness, other HEENT: Denies: no symptoms, eye pain, blurred vision, tearing, double vision, ear pain, ear discharge, nose pain, nose congestion, throat pain, throat swelling, mouth pain, mouth swelling, other Cardiovascular: Denies: no symptoms, chest pain, edema, irregular heart rate, lightheadedness, palpitations, syncope, other Respiratory: Denies: no symptoms, cough, orthopnea, shortness of breath, SOB with excertion, SOB at rest, sputum, stridor, wheezing, other Gastrointestinal/Abdominal: Denies: no symptoms, abdomen distended, abdominal pain, black stools, tarry stools, blood in stool, constipated, diarrhea, difficulty swallowing, nausea, poor appetite, poor fluid intake, rectal bleeding , vomiting, other Genitourinary: Denies: no symptoms, burning, discharge, frequency, flank pain, hematuria, incontinence, pain, urgency, other Neurologic/Psychiatric: Denies: no symptoms, anxiety, depressed, emotional problems, headache, numbness, paresthesia, pre-existing deficit, seizure, tingling, tremors, weakness, other Hematologic/Lymphatic: Reports: anemia Allergies: Coded Allergies: GABAPENTIN (Verified Allergy, Unknown, 10/11/17) OLIVE OIL (Verified Adverse Reaction, Severe, SPASM IN THE COLON, 01/18/14) PREGABALIN (Verified Adverse Reaction, Intermediate, "hypernervous", ) ACETAMINOPHEN (Verified Adverse Reaction, Mild, IRRITABILITY AND ELEVATED BLOOD PRESSURE, 01/18/14) IBUPROFEN (Verified Adverse Reaction, Mild, IRRITABILITY AND ELEVATED BLOOD PRESSURE, 01/18/14) Uncoded Allergies: SSRI (Allergy, Unknown, 10/11/17) Subjective Encephalopathic. No fever or chills. Pending placement in SNF Objective Last 24 Hour Vital Signs Date Time Temp Pulse Resp B/P (MAP) Pulse Ox O2 Delivery O2 Flow Rate FiO2 11/06/17 20:00 98.6 65 21 143/45 98 98.6 11/06/17 16:00 97.5 79 20 128/56 96 97.5 11/06/17 12:00 97.6 68 20 127/57 96 97.6 11/06/17 08:00 97.5 68 20 160/69 96 97.5 11/06/17 04:00 97.7 64 20 112/70 96 97.7 11/06/17 00:00 98.5 72 20 145/70 96 98.5 Intake and Output 11/05/17 11/06/17 19:00 07:00 Intake Total 800 ml 460 ml Output Total 400 ml 400 ml Balance 400 ml 60 ml Intake Oral 800 ml 240 ml IV Total 220 ml Output Urine Total 400 ml 400 ml # Voids 2 Laboratory Tests 11/06/17 06:05: White Blood Count 7.4, Red Blood Count 3.51L, Hemoglobin 8.7L, Hematocrit 27.0L , Mean Corpuscular Volume 77L, Mean Corpuscular Hemoglobin 24.7L, Mean Corpuscular Hemoglobin Concent 32.1, Red Cell Distribution Width 15.6H, Platelet Count 346, Mean Platelet Volume 6.5, Neutrophils (%) (Auto) 56.4, Lymphocytes (%) (Auto) 23.0, Monocytes (%) (Auto) 8.2, Eosinophils (%) (Auto) 10.7H, Basophils (%) (Auto) 1.7, Sodium Level 141, Potassium Level 3.7, Chloride Level 105, Carbon Dioxide Level 28, Anion Gap 8, Blood Urea Nitrogen 41H, Creatinine 1.6H, Estimat Glomerular Filtration Rate , Glucose Level 76, Calcium Level 8.1L Height (Feet): 5 Height (Inches): 8.00 Weight (Pounds): 185 General Appearance: confused Respiratory/Chest: decreased breath sounds Abdomen: soft Giovany Wiggins MD Nov 06, 2017 23:09
--- NOTE | 2017-11-06 23:44 | General Progress Note ---
Assessment/Plan Problem List: (1) hyperkalemia, resolved (2) Surgical abdomen ICD Codes: R10.0 - Acute abdomen SNOMED: 0735770 (3) Severe sepsis ICD Codes: A41.9 - Sepsis, unspecified organism; R65.20 - Severe sepsis without septic shock SNOMED: 35456353 (4) Chronic abdominal wound infection ICD Codes: S31.109A - Unspecified open wound of abdominal wall, unspecified quadrant without penetration into peritoneal cavity, initial encounter; L08.9 - Local infection of the skin and subcutaneous tissue, unspecified SNOMED: 97672850 (5) MISHEL (acute kidney injury) ICD Codes: N17.9 - Acute kidney failure, unspecified SNOMED: 65773571 (6) Ulcer SNOMED: 558746265 (7) Renal insufficiency ICD Codes: N28.9 - Disorder of kidney and ureter, unspecified SNOMED: 242253041, 728312627 (8) Foot ulcer, left ICD Codes: L97.529 - Non-pressure chronic ulcer of other part of left foot with unspecified severity SNOMED: 60848882, 661474059 Qualifiers: Qualified Codes: L97.529 - Non-pressure chronic ulcer of other part of left foot with unspecified severity (9) Ulcer of left heel ICD Codes: L97.429 - Non-pressure chronic ulcer of left heel and midfoot with unspecified severity SNOMED: 730515252 (10) Diabetic neuropathy ICD Codes: E11.40 - Type 2 diabetes mellitus with diabetic neuropathy, unspecified SNOMED: 00625296, 919594144, 719967576 (11) Diabetic nephropathy ICD Codes: E11.21 - Type 2 diabetes mellitus with diabetic nephropathy SNOMED: 43319013, 301982616 Qualifiers: Qualified Codes: E11.21 - Type 2 diabetes mellitus with diabetic nephropathy (12) Chronic diastolic (congestive) heart failure ICD Codes: I50.32 - Chronic diastolic (congestive) heart failure SNOMED: 04479445, 819901146 (13) Charcot foot due to diabetes mellitus ICD Codes: E11.610 - Type 2 diabetes mellitus with diabetic neuropathic arthropathy SNOMED: 33975592, 997053147, 805231942 (14) DM2 (diabetes mellitus, type 2) ICD Codes: E11.9 - Type 2 diabetes mellitus without complications SNOMED: 41712694 (15) Fracture of left hip requiring operative repair ICD Codes: S72.002A - Fracture of unspecified part of neck of left femur, initial encounter for closed fracture SNOMED: 783190946 (16) CKD stage 3 (17) lives in snf (18) ADHD (attention deficit hyperactivity disorder) ICD Codes: F90.9 - Attention-deficit hyperactivity disorder, unspecified type SNOMED: 151510973 (19) HTN (hypertension) ICD Codes: I10 - Essential (primary) hypertension SNOMED: 23728865 (20) Diabetes mellitus ICD Codes: E11.9 - Type 2 diabetes mellitus without complications SNOMED: 90166421 (21) Abdominal abscess ICD Codes: K65.1 - Peritoneal abscess SNOMED: 19577045 (22) fall with head trauma (23) Medical non-compliance ICD Codes: Z91.19 - Patient's noncompliance with other medical treatment and regimen SNOMED: 969295546 (24) Dementia with behavioral disturbance ICD Codes: F03.91 - Unspecified dementia with behavioral disturbance SNOMED: 7357071544323 (25) Acute on chronic diastolic (congestive) heart failure ICD Codes: I50.33 - Acute on chronic diastolic (congestive) heart failure SNOMED: 10332862, 343265279 (26) Gram-negative bacteremia ICD Codes: R78.81 - Bacteremia SNOMED: 606134049224 (27) Progressive osteomyelitis of the posterior calcaneus (28) Complete tear with retraction of the calcaneal tendon (29) Chronic diabetic ulcer right foot (30) MISHEL on CKD (31) Hyponatremia ICD Codes: E87.1 - Hypo-osmolality and hyponatremia SNOMED: 82858426 (32) L heel diabetic ulcer with concern for osteomyelitis (33) Cellulitis of left lower extremity ICD Codes: L03.116 - Cellulitis of left lower limb SNOMED: 808235333 (34) Sepsis ICD Codes: A41.9 - Sepsis, unspecified organism SNOMED: 54248794 Status: stable Assessment/Plan Podiatry, ID, renal consulted s/p vanco (10/11-10/16) Cont ertapenem + tigecycline per ID Will need total of 6 weeks of IV abx per ID given osteomyelitis - currently day #23/ Daptomycin was d/c'd on 10/30 given elevated CK level s/p cefepime and flagyl (10/11-10/14) F/u cultures--blood culture showing GNR, wound culture showing Klebsiella and Proteus F/u repeat blood cultures--ngtd PICC line placed 10/17/17 Wound care per podiatry Check MRI L foot--shows progressive osteomyelitis, heel ulceration, soft tissue gas, complete tear of Achilles tendon s/p incision and drainage left foot, excisional debridement to the level of muscle left foot, and partial calcanectomy left foot on 10/13/17 NWB LLE Off wound vac now per podiatry Check renal U/S--shows bladder volume 337mL, refused connolly Flomax 0.4mg BID + finasteride 5mg daily Check TTE--EF 55-60% Pain control, bowel regimen Supportive care Appreciate psych consult Cont SNF ayes [facility] once authorization for SNF obtained Pt unable to go home as he lives alone, 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 Disposition: Once the patient is stable to leave the hospital, I anticipate the patient will likely be discharged to the following environment: back to SNF Discussed with patient/family, nursing staff, SW/CM, podiatry, ID regarding clinical status, treatment course, and disposition planning. D/w ID re abx on d/ c. D/w podiatry re wound care, d/c plan. D/w CM re dispo Time of note may not reflect time of encounter Subjective Date patient seen: Nov 06, 2017 Time patient seen: 12:11 Allergies: Coded Allergies: GABAPENTIN (Verified Allergy, Unknown, 10/11/17) OLIVE OIL (Verified Adverse Reaction, Severe, SPASM IN THE COLON, 01/18/14) PREGABALIN (Verified Adverse Reaction, Intermediate, "hypernervous", ) ACETAMINOPHEN (Verified Adverse Reaction, Mild, IRRITABILITY AND ELEVATED BLOOD PRESSURE, 01/18/14) IBUPROFEN (Verified Adverse Reaction, Mild, IRRITABILITY AND ELEVATED BLOOD PRESSURE, 01/18/14) Uncoded Allergies: SSRI (Allergy, Unknown, 10/11/17) Subjective - doing well - AF, HDS - Cr downtrending - pending SNF placement Objective Last 24 Hour Vital Signs Date Time Temp Pulse Resp B/P (MAP) Pulse Ox O2 Delivery O2 Flow Rate FiO2 11/06/17 20:00 98.6 65 21 143/45 98 98.6 11/06/17 16:00 97.5 79 20 128/56 96 97.5 11/06/17 12:00 97.6 68 20 127/57 96 97.6 11/06/17 08:00 97.5 68 20 160/69 96 97.5 11/06/17 04:00 97.7 64 20 112/70 96 97.7 11/06/17 00:00 98.5 72 20 145/70 96 98.5 Intake and Output 11/05/17 11/06/17 19:00 07:00 Intake Total 800 ml 460 ml Output Total 400 ml 400 ml Balance 400 ml 60 ml Intake Oral 800 ml 240 ml IV Total 220 ml Output Urine Total 400 ml 400 ml # Voids 2 Laboratory Tests 11/06/17 06:05: White Blood Count 7.4, Red Blood Count 3.51L, Hemoglobin 8.7L, Hematocrit 27.0L , Mean Corpuscular Volume 77L, Mean Corpuscular Hemoglobin 24.7L, Mean Corpuscular Hemoglobin Concent 32.1, Red Cell Distribution Width 15.6H, Platelet Count 346, Mean Platelet Volume 6.5, Neutrophils (%) (Auto) 56.4, Lymphocytes (%) (Auto) 23.0, Monocytes (%) (Auto) 8.2, Eosinophils (%) (Auto) 10.7H, Basophils (%) (Auto) 1.7, Sodium Level 141, Potassium Level 3.7, Chloride Level 105, Carbon Dioxide Level 28, Anion Gap 8, Blood Urea Nitrogen 41H, Creatinine 1.6H, Estimat Glomerular Filtration Rate , Glucose Level 76, Calcium Level 8.1L Height (Feet): 5 Height (Inches): 8.00 Weight (Pounds): 185 General Appearance: no apparent distress, alert EENT: PERRL/EOMI Neck: non-tender, normal alignment Cardiovascular: normal peripheral pulses, normal rate, regular rhythm Respiratory/Chest: chest wall non-tender, lungs clear, normal breath sounds Abdomen: normal bowel sounds, non tender, soft Extremities: other - bilateral lower extremity erythema, edema with 2+, and TTP Neurologic: life educator II-XII grossly normal, no motor/sensory deficits, alert Skin: warm/dry Candy Elmore N.P. Nov 06, 2017 23:43
[2017-11-07] VITALS: BP 141/46
[2017-11-07 04:00] VITALS: BP 133/72
[2017-11-07] MEDS: oxyCONTIN 10mg tab ORAL SCH ×3 (06:21→21:39)
[2017-11-07] MEDS: NovoLOG Insulin Flexpen SUBQ SCH ×4 (06:30→21:43)
[2017-11-07] MEDS: Dakin's 0.125% Soln (Quarter Strength) 16oz TOPIC SCH (07:57)
[2017-11-07] MEDS: Analgesic Balm 15gm TOPIC SCH ×2 (07:57→17:25)
[2017-11-07] MEDS: Ertapenem 1gm in NS 55ml IVPB SCH (07:58)
[2017-11-07] MEDS: Vitamin D 1000 IU Tab ORAL SCH (07:58)
[2017-11-07] MEDS: Ascorbic Acid 500mg tab ORAL SCH (07:58)
[2017-11-07] MEDS: Tamsulosin 0.4mg cap ORAL SCH ×2 (07:58→17:25)
[2017-11-07] MEDS: Doxazosin 1mg Tab ORAL SCH ×2 (07:58→17:24)
[2017-11-07 08:00] VITALS: BP 149/61
[2017-11-07 08:00] LABS: BASOPHILS % (AUTO) 1.5 % (0.0-2.0); EOSINOPHILS % (AUTO) 6.2 % (0.0-3.0); HEMATOCRIT 26.5 % (42.0-52.0); HEMOGLOBIN 8.6 G/DL (14.2-18.0); LYMPHOCYTES % (AUTO) 19.2 % (20.0-45.0); MEAN CORPUSCULAR VOLUME 77 FL (80-99); MONOCYTES % (AUTO) 7.7 % (1.0-10.0); NEUTROPHILS % (AUTO) 65.5 % (45.0-75.0); PLATELET COUNT 291 K/UL (150-450); RED BLOOD COUNT 3.45 M/UL (4.70-6.10); RED CELL DISTRIBUTION WIDTH 16.1 % (11.6-14.8); WHITE BLOOD COUNT 9.1 K/UL (4.8-10.8)
[2017-11-07] MEDS: Nephrovite tab (Rena-Vite) ORAL SCH (08:01)
[2017-11-07] MEDS: Tigecycline 50 MG in D5W 110 ML IVPB SCH ×2 (08:05→21:34)
[2017-11-07] MEDS: Docusate 100mg cap ORAL SCH ×3 (08:06→17:27)
[2017-11-07] MEDS: Heparin 5000 units/ml inj SUBQ SCH ×2 (08:06→21:00)
[2017-11-07 08:12] LABS: ANION GAP 7 mmol/L (5-15); BLOOD UREA NITROGEN 41 mg/dL (7-18); CALCIUM 7.7 MG/DL (8.5-10.1); CARBON DIOXIDE 29 MMOL/L (21-32); CHLORIDE 106 MMOL/L (98-107); CREATININE 1.5 MG/DL (0.55-1.30); POTASSIUM 3.7 MMOL/L (3.5-5.1); SODIUM 142 MMOL/L (136-145)
[2017-11-07] MEDS: oxyCODONE 5mg IR tab ORAL PRN ×2 (11:40→17:25)
[2017-11-07 12:00] VITALS: BP 128/48
--- NOTE | 2017-11-07 13:37 | General Progress Note ---
Assessment/Plan Problem List: (1) Gram-negative bacteremia Assessment & Plan: Bacterioides fragilis bacteremia ICD Codes: R78.81 - Bacteremia SNOMED: 137235730425 (2) Sepsis ICD Codes: A41.9 - Sepsis, unspecified organism SNOMED: 70739609 (3) Progressive osteomyelitis of the posterior calcaneus (4) Cellulitis of left lower extremity ICD Codes: L03.116 - Cellulitis of left lower limb SNOMED: 998873980 (5) L heel diabetic ulcer with concern for osteomyelitis (6) Complete tear with retraction of the calcaneal tendon (7) MISHEL on CKD (8) CKD stage 3 (9) DM2 (diabetes mellitus, type 2) Assessment & Plan: A1C 9.9 ICD Codes: E11.9 - Type 2 diabetes mellitus without complications SNOMED: 61970311 (10) HTN (hypertension) ICD Codes: I10 - Essential (primary) hypertension SNOMED: 18989043 (11) Diabetic neuropathy ICD Codes: E11.40 - Type 2 diabetes mellitus with diabetic neuropathy, unspecified SNOMED: 67285164, 216363306, 937835812 (12) Diabetic nephropathy ICD Codes: E11.21 - Type 2 diabetes mellitus with diabetic nephropathy SNOMED: 62739714, 748451450 Qualifiers: Qualified Codes: E11.21 - Type 2 diabetes mellitus with diabetic nephropathy (13) Hyponatremia ICD Codes: E87.1 - Hypo-osmolality and hyponatremia SNOMED: 10500868 (14) Chronic diabetic ulcer right foot (15) Medical non-compliance ICD Codes: Z91.19 - Patient's noncompliance with other medical treatment and regimen SNOMED: 819318762 (16) Acute on chronic diastolic (congestive) heart failure ICD Codes: I50.33 - Acute on chronic diastolic (congestive) heart failure SNOMED: 54515047, 428707638 (17) fall with head trauma Status: stable Assessment/Plan Podiatry, ID, renal consulted s/p vanco (10/11-10/16) Cont ertapenem + tigecycline per ID Will need total of 6 weeks of IV abx per ID given osteomyelitis - currently day #24/42 Daptomycin was d/c'd on 10/30 given elevated CK level s/p cefepime and flagyl (10/11-10/14) F/u cultures--blood culture showing GNR, wound culture showing Klebsiella and Proteus F/u repeat blood cultures--ngtd PICC line placed 10/17/17 Wound care per podiatry Check MRI L foot--shows progressive osteomyelitis, heel ulceration, soft tissue gas, complete tear of Achilles tendon s/p incision and drainage left foot, excisional debridement to the level of muscle left foot, and partial calcanectomy left foot on 10/13/17 [facility] LLE Off wound vac now per podiatry Check renal U/S--shows bladder volume 337mL, refused connolly Flomax 0.4mg BID + finasteride 5mg daily Check TTE--EF 55-60% Pain control, bowel regimen Supportive care Appreciate psych consult Cont SNF meds [facility] DC once authorization for SNF obtained Pt unable to go home as he lives alone, 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 Disposition: Once the patient is stable to leave the hospital, I anticipate the patient will likely be discharged to the following environment: back to SNF Discussed with patient/family, nursing staff, SW/CM, podiatry, ID regarding clinical status, treatment course, and disposition planning. D/w ID re abx on d/ c. D/w podiatry re wound care, d/c plan. D/w CM re dispo Time of note may not reflect time of encounter Subjective Date patient seen: Nov 07, 2017 Time patient seen: 13:37 ROS Limited/Unobtainable: No Constitutional: Reports: no symptoms Cardiovascular: Reports: no symptoms Respiratory: Reports: no symptoms Gastrointestinal/Abdominal: Reports: no symptoms Genitourinary: Reports: no symptoms Neurologic/Psychiatric: Reports: no symptoms Endocrine: Reports: no symptoms Hematologic/Lymphatic: Reports: no symptoms Allergies: Coded Allergies: GABAPENTIN (Verified Allergy, Unknown, 10/11/17) OLIVE OIL (Verified Adverse Reaction, Severe, SPASM IN THE COLON, 01/18/14) PREGABALIN (Verified Adverse Reaction, Intermediate, "hypernervous", ) ACETAMINOPHEN (Verified Adverse Reaction, Mild, IRRITABILITY AND ELEVATED BLOOD PRESSURE, 01/18/14) IBUPROFEN (Verified Adverse Reaction, Mild, IRRITABILITY AND ELEVATED BLOOD PRESSURE, 01/18/14) Uncoded Allergies: SSRI (Allergy, Unknown, 10/11/17) Subjective No acute o/n events s/p incision and drainage left foot, excisional debridement to the level of muscle left foot, and partial calcanectomy left foot POD#25 Scr improving Awaiting authorization for SNF as pt's Medicare days have run out Pt is noncompliant with meds Pt feels depressed and frustrated that he is still here Pt c/o foot pain. More awake, alert. Denies n/v, d/c, chest pain, SOB, abd pain Objective Last 24 Hour Vital Signs Date Time Temp Pulse Resp B/P (MAP) Pulse Ox O2 Delivery O2 Flow Rate FiO2 11/07/17 08:00 97.9 63 20 149/61 97 97.9 11/07/17 04:00 98.1 65 20 133/72 97 98.1 11/07/17 00:00 98.2 65 21 141/46 98 98.2 11/06/17 20:00 98.6 65 21 143/45 98 98.6 11/06/17 16:00 97.5 79 20 128/56 96 97.5 Intake and Output 11/06/17 11/07/17 19:00 07:00 Intake Total 660 ml 330 ml Output Total 350 ml 750 ml Balance 310 ml -420 ml Intake Oral 660 ml IV Total 330 ml Output Urine Total 350 ml 750 ml # Voids 4 # Bowel Movements 1 Laboratory Tests 11/07/17 06:20: White Blood Count 9.1, Red Blood Count 3.45L, Hemoglobin 8.6L, Hematocrit 26.5L , Mean Corpuscular Volume 77L, Mean Corpuscular Hemoglobin 24.9L, Mean Corpuscular Hemoglobin Concent 32.3, Red Cell Distribution Width 16.1H, Platelet Count 291, Mean Platelet Volume 6.3L, Neutrophils (%) (Auto) 65.5, Lymphocytes (%) (Auto) 19.2L, Monocytes (%) (Auto) 7.7, Eosinophils (%) (Auto) 6.2H, Basophils (%) (Auto) 1.5, Erythrocyte Sedimentation Rate 34H, Sodium Level 142, Potassium Level 3.7, Chloride Level 106, Carbon Dioxide Level 29, Anion Gap 7, Blood Urea Nitrogen 41H, Creatinine 1.5H, Estimat Glomerular Filtration Rate , Glucose Level 84, Calcium Level 7.7L Height (Feet): 5 Height (Inches): 8.00 Weight (Pounds): 185 Objective General: alert, cooperative, no distress, appears stated age Head: normocephalic, without obvious abnormality, atraumatic Eyes: conjunctivae/corneas clear. PERRL, EOM's intact Throat: lips, mucosa, and tongue normal. MMM Neck: supple, symmetrical, trachea midline, and no JVD Lungs: clear to auscultation bilaterally Heart: regular rate and rhythm, S1, S2 normal, no murmur, click, rub or gallop Abdomen: soft, non-tender, non-distended, bowel sounds normal Extremities: extremities normal, atraumatic, no cyanosis, 1-2+ pitting edema BLE Pulses: 2+ and symmetric Skin: Left foot dressing c/d/i, Right foot dressing c/d/i Neurologic: grossly normal, no focal deficits Conner Orozco M.D. Nov 07, 2017 13:37
--- NOTE | 2017-11-07 15:25 | Nephrology Progress Note ---
Assessment/Plan Problem List: (1) HTN (hypertension) (2) Diabetes mellitus (3) Ulcer of left heel (4) Renal insufficiency Assessment cr carlos above 3 now gradually lowering Foot ulcer, left left leg cellulitis, left heel ulcer, ? osteo, leukocytosis, lgt Renal insufficiency acute vs chronic Cr lowering now 1.6 Urinary retention: REFUSES NG Anemia UTI Plan fluid challenge Avoid Nephrotoxics Keep BP in check monitor renal parameters Anemia henry urine studies flomax start cardura Kidney [facility] Unremarkable kidneys. Negative for hydronephrosis Note inability of the patient to void with a bladder volume of 337 mL 2D echo :Left ventricular ejection fraction estimated to be 55-60%. No evidence of left ventricular hypertrophy. Subjective ROS Limited/Unobtainable: No Constitutional: Reports: malaise Objective Objective Last 24 Hour Vital Signs Date Time Temp Pulse Resp B/P (MAP) Pulse Ox O2 Delivery O2 Flow Rate FiO2 11/07/17 12:00 98.0 71 20 128/48 97 98.0 11/07/17 08:00 97.9 63 20 149/61 97 97.9 11/07/17 04:00 98.1 65 20 133/72 97 98.1 11/07/17 00:00 98.2 65 21 141/46 98 98.2 11/06/17 20:00 98.6 65 21 143/45 98 98.6 11/06/17 16:00 97.5 79 20 128/56 96 97.5 Intake and Output 11/06/17 11/07/17 19:00 07:00 Intake Total 660 ml 330 ml Output Total 350 ml 750 ml Balance 310 ml -420 ml Intake Oral 660 ml IV Total 330 ml Output Urine Total 350 ml 750 ml # Voids 4 # Bowel Movements 1 Laboratory Tests 11/07/17 06:20: White Blood Count 9.1, Red Blood Count 3.45L, Hemoglobin 8.6L, Hematocrit 26.5L , Mean Corpuscular Volume 77L, Mean Corpuscular Hemoglobin 24.9L, Mean Corpuscular Hemoglobin Concent 32.3, Red Cell Distribution Width 16.1H, Platelet Count 291, Mean Platelet Volume 6.3L, Neutrophils (%) (Auto) 65.5, Lymphocytes (%) (Auto) 19.2L, Monocytes (%) (Auto) 7.7, Eosinophils (%) (Auto) 6.2H, Basophils (%) (Auto) 1.5, Erythrocyte Sedimentation Rate 34H, Sodium Level 142, Potassium Level 3.7, Chloride Level 106, Carbon Dioxide Level 29, Anion Gap 7, Blood Urea Nitrogen 41H, Creatinine 1.5H, Estimat Glomerular Filtration Rate , Glucose Level 84, Calcium Level 7.7L Height (Feet): 5 Height (Inches): 8.00 Weight (Pounds): 185 General Appearance: no apparent distress, lethargic Cardiovascular: normal rate Respiratory/Chest: decreased breath sounds Abdomen: soft Objective no other changes IHSAN REGALADO Nov 07, 2017 15:25
--- NOTE | 2017-11-07 15:26 | Infectious Diseases Prog Note ---
Assessment/Plan Assessment/Plan ASSESSMENT AND PLAN: 1. bacteroides bacteremia, proteus/klebsiella/vre left heel/foot wound infection and osteomyelitis on MRI, sepsis, leukocytosis, ? fungal uti - elevated CK noted, ? secondary to fall vs daptomycin - s/p debridement, debridement as needed per podiatry - leg redness better, chronic edema - clinically better, podiatry note reviewed and wounds and cellulitis improving - continue wound care per podiatry - f/u labs, surveillance blood cultures negative, ck now wnl - sed rate significantly improved - invanz and tygecycline for now, because of elevated ck, may rechallenge with daptomycin at later date - abx started on 10/14, plan on 6 week course - day #24/42 - vre colonized - fungal uti s/p diflucan 2. Elevated creatinine, chronic renal failure, acute kidney injury, elevated ck , s/p fall, ? rhabdomyolysis 3. Anemia. 4. The patient with history of diabetes. 5. Hypertension. 6. Blood sugar and blood pressure treatment per primary. 7. Benign prostatic hypertrophy. 8. Atherosclerotic cardiovascular disease. 9. Chronic diastolic congestive heart failure. 10. Anemia. 11. Dizziness, headaches, weakness, and fatigue. 12. Allergies, acetaminophen, gabapentin, ibuprofen, Elavil, pregabalin, and selective serotonin reuptake inhibitors. 13. Social history negative. 14. Family history noncontributory. 15. MAR was noted. 16. Case discussed with RN. 17. Continue treatment per primary consultants. 18. Orders were entered. 19. Notes and records noted. Subjective Constitutional: Denies: fever HEENT: Denies: congestion Respiratory: Denies: shortness of breath Cardiovascular: Denies: chest pain Gastrointestinal/Abdominal: Denies: nausea, vomiting, diarrhea Genitourinary: Denies: dysuria, hematuria Neurologic: Denies: headache Psychiatric: Reports: depression Skin: Denies: rash Hematologic: Denies: bleeding Musculoskeletal: Reports: pain - controlled Allergies: Coded Allergies: GABAPENTIN (Verified Allergy, Unknown, 10/11/17) OLIVE OIL (Verified Adverse Reaction, Severe, SPASM IN THE COLON, 01/18/14) PREGABALIN (Verified Adverse Reaction, Intermediate, "hypernervous", ) ACETAMINOPHEN (Verified Adverse Reaction, Mild, IRRITABILITY AND ELEVATED BLOOD PRESSURE, 01/18/14) IBUPROFEN (Verified Adverse Reaction, Mild, IRRITABILITY AND ELEVATED BLOOD PRESSURE, 01/18/14) Uncoded Allergies: SSRI (Allergy, Unknown, 10/11/17) Objective Vital Signs Last 24 Hour Vital Signs Date Time Temp Pulse Resp B/P (MAP) Pulse Ox O2 Delivery O2 Flow Rate FiO2 11/07/17 12:00 98.0 71 20 128/48 97 98.0 11/07/17 08:00 97.9 63 20 149/61 97 97.9 11/07/17 04:00 98.1 65 20 133/72 97 98.1 11/07/17 00:00 98.2 65 21 141/46 98 98.2 11/06/17 20:00 98.6 65 21 143/45 98 98.6 11/06/17 16:00 97.5 79 20 128/56 96 97.5 Height (Feet): 5 Height (Inches): 8.00 Weight (Pounds): 185 General Appearance: no acute distress HEENT: normocephalic, atraumatic, anicteric, mucous membranes moist Respiratory/Chest: lungs clear, normal breath sounds, no respiratory distress, no accessory muscle use Cardiovascular: normal rate, regular rhythm, no gallop/murmur, no JVD Abdomen: normal bowel sounds, soft, non tender, no organomegaly, non distended Genitourinary: other - no connolly Extremities: no cyanosis Skin: no rash Neurologic/Psychiatric: green chain off bearer II-XII grossly normal, alert, oriented x 3, responsive Lymphatic: no neck adenopathy Musculoskeletal: other - leg edema Objective Chest x-ray - Impression: Bibasilar atelectasis and elevation of the right hemidiaphragm. No acute process otherwise. MRI left foot and ankle - Impression: Positive for progressive osteomyelitis of the posterior calcaneus, since prior study of 08/02/2017 Increasing ulceration of the overlying soft tissues, with possible exposure of the medial aspect of the calcaneal tuberosity. Small amount of gas within the medial soft tissues,. The related open wound or could indicate infection by gas-forming organism Complete tear with retraction of the calcaneal tendon, as described. Fluid in the tibiotalar joint. Probably reactive secondary to the above Diffuse edema of the subcutaneous fat. This could be due to cellulitis or could be related to hemodynamic abnormalities Other findings as noted Findings discussed by phone with Dr. Prieto at the time of interpretation Microbiology Date/Time Source Procedure Growth Status 10/14/17 08:50 Blood Blood Culture - Final NO GROWTH AFTER 5 DAYS Complete 10/11/17 17:00 Nasal Nares MRSA Culture - Final NO METHICILLIN RESISTANT STAPH AUREUS... Complete 10/30/17 04:15 Urine,Clean Catch Urine Culture - Final Jessie Albicans Complete 10/13/17 19:20 Foot Left Gram Stain - Final Complete 10/13/17 19:20 Aerobic Culture - Final Klebsiella Pneumoniae Proteus Mirabilis Enterococcus Faecium - Vre Complete 10/13/17 19:20 Foot Left Anaerobic Culture - Final NO ANAEROBES ISOLATED Complete Laboratory Tests Test 11/07/17 06:20 White Blood Count 9.1 K/UL (4.8-10.8) Red Blood Count 3.45 M/UL (4.70-6.10) L Hemoglobin 8.6 G/DL (14.2-18.0) L Hematocrit 26.5 % (42.0-52.0) L Mean Corpuscular Volume 77 FL (80-99) L Mean Corpuscular Hemoglobin 24.9 PG (27.0-31.0) L Mean Corpuscular Hemoglobin Concent 32.3 G/DL (32.0-36.0) Red Cell Distribution Width 16.1 % (11.6-14.8) H Platelet Count 291 K/UL (150-450) Mean Platelet Volume 6.3 FL (6.5-10.1) L Neutrophils (%) (Auto) 65.5 % (45.0-75.0) Lymphocytes (%) (Auto) 19.2 % (20.0-45.0) L Monocytes (%) (Auto) 7.7 % (1.0-10.0) Eosinophils (%) (Auto) 6.2 % (0.0-3.0) H Basophils (%) (Auto) 1.5 % (0.0-2.0) Erythrocyte Sedimentation Rate 34 MM/HR (0-20) H Sodium Level 142 MMOL/L (136-145) Potassium Level 3.7 MMOL/L (3.5-5.1) Chloride Level 106 MMOL/L (98-107) Carbon Dioxide Level 29 MMOL/L (21-32) Anion Gap 7 mmol/L (5-15) Blood Urea Nitrogen 41 mg/dL (7-18) H Creatinine 1.5 MG/DL (0.55-1.30) H Estimat Glomerular Filtration Rate mL/min (>60) Glucose Level 84 MG/DL (74-106) Calcium Level 7.7 MG/DL (8.5-10.1) L Current Medications Medications (Trade) Dose Ordered Sig/Dari Route PRN Reason Start Time Stop Time Status Last Admin Dose Admin Acetaminophen (Tylenol) 650 mg Q4H PRN ORAL Mild Pain (Scale 1-3), fever 10/11/17 16:45 11/10/17 16:44 Ascorbic Acid (Vitamin C) 500 mg DAILY ORAL 10/25/17 09:00 11/24/17 08:59 11/07/17 07:58 Bisacodyl (Dulcolax) 10 mg HSPRN PRN RECTAL Constipation 10/11/17 17:15 11/10/17 17:14 Chlorhexidine Gluconate (Sarah-Hex 2%) 1 applic DAILY@1999 TOPIC 10/31/17 20:00 11/30/17 19:59 11/06/17 20:09 Clotrimazole (Lotrimin) 1 applic EVERY 12 HOURS TOPIC 10/14/17 21:00 11/13/17 20:59 11/07/17 07:57 Dextrose (Dextrose 50%) STAT PRN IV Hypoglycemia 10/11/17 16:45 11/10/17 16:44 Diphenhydramine HCl (Benadryl) 25 mg Q6H PRN ORAL Itching 10/22/17 23:45 11/21/17 23:44 11/06/17 06:33 Docusate Sodium (Colace) 100 mg TID ORAL 10/12/17 13:30 11/10/17 13:29 11/06/17 09:06 Doxazosin Mesylate (Cardura) 2 mg BID ORAL 11/02/17 18:00 11/15/17 12:59 11/07/17 07:58 Ertapenem 1 gm/ Sodium Chloride 55 ml @ 110 mls/hr Q24H IVPB 11/06/17 16:00 11/11/17 15:59 11/07/17 07:58 Finasteride (Proscar) 5 mg DAILY ORAL 10/12/17 09:00 11/11/17 08:59 11/07/17 07:58 Heparin Sodium (Porcine) (Heparin 5000 units/ml) 5,000 units EVERY 12 HOURS SUBQ 10/11/17 21:00 11/10/17 20:59 10/24/17 22:35 Insulin Aspart (NovoLOG) BEFORE MEALS AND HS SUBQ 10/11/17 21:00 11/10/17 20:59 11/07/17 11:42 Insulin Detemir (Levemir) 12 units Q24H SUBQ 10/16/17 18:00 11/15/17 17:59 11/06/17 17:45 Menthol/Methyl Salicylate (Bengay) 1 applic BID TOPIC 10/18/17 20:00 11/17/17 19:59 11/07/17 07:57 Mirtazapine (Remeron) 15 mg BEDTIME ORAL 10/11/17 21:00 11/10/17 20:59 10/28/17 22:04 Ondansetron HCl (Zofran) 4 mg Q6H PRN IVP Nausea & Vomiting 10/11/17 16:45 11/10/17 16:44 Oxycodone HCl (OxyCONTIN) 10 mg EVERY 8 HOURS ORAL 11/01/17 22:00 11/08/17 21:59 11/07/17 14:05 Oxycodone HCl (Roxicodone) 5 mg Q3H PRN ORAL Breakthrough Pain 11/01/17 20:45 11/08/17 20:44 11/07/17 11:40 Polyethylene Glycol (Miralax) 17 gm HSPRN PRN ORAL Constipation 10/11/17 16:45 11/10/17 16:44 Risperidone (RisperDAL) 1 mg BEDTIME ORAL 10/14/17 21:00 11/13/17 20:59 10/24/17 22:34 Sodium Hypochlorite (Dakin's Quarter Strength) 1 applic DAILY TOPIC 10/20/17 09:00 11/19/17 08:59 11/07/17 07:57 Tamsulosin HCl (Flomax) 0.4 mg BID ORAL 10/12/17 13:30 11/10/17 13:29 11/07/17 07:58 Tigecycline 50 mg/ Dextrose 110 ml @ 220 mls/hr Q12HR@0800,2000 IVPB 11/05/17 20:00 11/12/17 20:00 11/07/17 08:05 Vitamin B Complex/ Vit C/Folic Acid (Nephrovite) 1 tab DAILY ORAL 10/12/17 09:00 11/11/17 08:59 11/07/17 08:01 Vitamin D (Vitamin D) 2,000 intlu DAILY ORAL 10/22/17 09:00 11/21/17 08:59 11/07/17 07:58 LARON HERNANDEZ Nov 07, 2017 15:26
[2017-11-07 16:00] VITALS: BP 116/65
[2017-11-07] MEDS: Levemir Flexpen SUBQ SCH (17:27)
--- NOTE | 2017-11-07 18:34 | General Progress Note ---
Assessment/Plan Problem List: (1) Dementia with behavioral disturbance Assessment & Plan: Dementia with behavior disturbance and agitation. lacks capacity to make decisions lacks capacity to refuse meds PLAN: 1. Continue risperidone 1 mg at bedtime. 2. Continue Remeron 15 at bedtime. 3. Continue to follow and readjust the medications. ICD Codes: F03.91 - Unspecified dementia with behavioral disturbance SNOMED: [id number] Assessment/Plan Dementia with behavior disturbance and agitation. lacks capacity to make decisions lacks capacity to refuse meds PLAN: 1. Continue risperidone 1 mg at bedtime. 2. Continue Remeron 15 at bedtime. 3. Continue to follow and readjust the medications. Subjective Date patient seen: Nov 07, 2017 Allergies: Coded Allergies: GABAPENTIN (Verified Allergy, Unknown, 10/11/17) OLIVE OIL (Verified Adverse Reaction, Severe, SPASM IN THE COLON, 01/18/14) PREGABALIN (Verified Adverse Reaction, Intermediate, "hypernervous", ) ACETAMINOPHEN (Verified Adverse Reaction, Mild, IRRITABILITY AND ELEVATED BLOOD PRESSURE, 01/18/14) IBUPROFEN (Verified Adverse Reaction, Mild, IRRITABILITY AND ELEVATED BLOOD PRESSURE, 01/18/14) Uncoded Allergies: SSRI (Allergy, Unknown, 10/11/17) Subjective refused some meds depressed mood. Objective Last 24 Hour Vital Signs Date Time Temp Pulse Resp B/P (MAP) Pulse Ox O2 Delivery O2 Flow Rate FiO2 11/07/17 16:00 97.8 78 20 116/65 97 97.8 11/07/17 12:00 98.0 71 20 128/48 97 98.0 11/07/17 08:00 97.9 63 20 149/61 97 97.9 11/07/17 04:00 98.1 65 20 133/72 97 98.1 11/07/17 00:00 98.2 65 21 141/46 98 98.2 11/06/17 20:00 98.6 65 21 143/45 98 98.6 Intake and Output 11/06/17 11/07/17 19:00 07:00 Intake Total 660 ml 330 ml Output Total 350 ml 750 ml Balance 310 ml -420 ml Intake Oral 660 ml IV Total 330 ml Output Urine Total 350 ml 750 ml # Voids 4 # Bowel Movements 1 Laboratory Tests 11/07/17 06:20: White Blood Count 9.1, Red Blood Count 3.45L, Hemoglobin 8.6L, Hematocrit 26.5L , Mean Corpuscular Volume 77L, Mean Corpuscular Hemoglobin 24.9L, Mean Corpuscular Hemoglobin Concent 32.3, Red Cell Distribution Width 16.1H, Platelet Count 291, Mean Platelet Volume 6.3L, Neutrophils (%) (Auto) 65.5, Lymphocytes (%) (Auto) 19.2L, Monocytes (%) (Auto) 7.7, Eosinophils (%) (Auto) 6.2H, Basophils (%) (Auto) 1.5, Erythrocyte Sedimentation Rate 34H, Sodium Level 142, Potassium Level 3.7, Chloride Level 106, Carbon Dioxide Level 29, Anion Gap 7, Blood Urea Nitrogen 41H, Creatinine 1.5H, Estimat Glomerular Filtration Rate , Glucose Level 84, Calcium Level 7.7L Height (Feet): 5 Height (Inches): 8.00 Weight (Pounds): 185 Milton Lancaster M.D. Nov 07, 2017 18:34
--- NOTE | 2017-11-07 18:35 | Psych Consult Progress Note ---
Psych Consult Progress Note Consult 11/05/17 the pt os the same refused care and meds Dementia with behavior disturbance and agitation. lacks capacity to make decisions lacks capacity to refuse meds PLAN: 1. Continue risperidone 1 mg at bedtime. 2. Continue Remeron 15 at bedtime. 3. Continue to follow and readjust the medications. Vital Signs Last 24 Hour Vital Signs Date Time Temp Pulse Resp B/P (MAP) Pulse Ox O2 Delivery O2 Flow Rate FiO2 11/07/17 16:00 97.8 78 20 116/65 97 97.8 11/07/17 12:00 98.0 71 20 128/48 97 98.0 11/07/17 08:00 97.9 63 20 149/61 97 97.9 11/07/17 04:00 98.1 65 20 133/72 97 98.1 11/07/17 00:00 98.2 65 21 141/46 98 98.2 11/06/17 20:00 98.6 65 21 143/45 98 98.6 Labs Laboratory Tests Test 11/07/17 06:20 White Blood Count 9.1 K/UL (4.8-10.8) Red Blood Count 3.45 M/UL (4.70-6.10) L Hemoglobin 8.6 G/DL (14.2-18.0) L Hematocrit 26.5 % (42.0-52.0) L Mean Corpuscular Volume 77 FL (80-99) L Mean Corpuscular Hemoglobin 24.9 PG (27.0-31.0) L Mean Corpuscular Hemoglobin Concent 32.3 G/DL (32.0-36.0) Red Cell Distribution Width 16.1 % (11.6-14.8) H Platelet Count 291 K/UL (150-450) Mean Platelet Volume 6.3 FL (6.5-10.1) L Neutrophils (%) (Auto) 65.5 % (45.0-75.0) Lymphocytes (%) (Auto) 19.2 % (20.0-45.0) L Monocytes (%) (Auto) 7.7 % (1.0-10.0) Eosinophils (%) (Auto) 6.2 % (0.0-3.0) H Basophils (%) (Auto) 1.5 % (0.0-2.0) Erythrocyte Sedimentation Rate 34 MM/HR (0-20) H Sodium Level 142 MMOL/L (136-145) Potassium Level 3.7 MMOL/L (3.5-5.1) Chloride Level 106 MMOL/L (98-107) Carbon Dioxide Level 29 MMOL/L (21-32) Anion Gap 7 mmol/L (5-15) Blood Urea Nitrogen 41 mg/dL (7-18) H Creatinine 1.5 MG/DL (0.55-1.30) H Estimat Glomerular Filtration Rate mL/min (>60) Glucose Level 84 MG/DL (74-106) Calcium Level 7.7 MG/DL (8.5-10.1) L Medications Current Medications Medications (Trade) Dose Ordered Sig/Dari Route PRN Reason Start Time Stop Time Status Last Admin Dose Admin Acetaminophen (Tylenol) 650 mg Q4H PRN ORAL Mild Pain (Scale 1-3), fever 10/11/17 16:45 11/10/17 16:44 Ascorbic Acid (Vitamin C) 500 mg DAILY ORAL 10/25/17 09:00 11/24/17 08:59 11/07/17 07:58 Bisacodyl (Dulcolax) 10 mg HSPRN PRN RECTAL Constipation 10/11/17 17:15 11/10/17 17:14 Chlorhexidine Gluconate (Sarah-Hex 2%) 1 applic DAILY@1999 TOPIC 10/31/17 20:00 11/30/17 19:59 11/06/17 20:09 Clotrimazole (Lotrimin) 1 applic EVERY 12 HOURS TOPIC 10/14/17 21:00 11/13/17 20:59 11/07/17 07:57 Dextrose (Dextrose 50%) STAT PRN IV Hypoglycemia 10/11/17 16:45 11/10/17 16:44 Diphenhydramine HCl (Benadryl) 25 mg Q6H PRN ORAL Itching 10/22/17 23:45 11/21/17 23:44 11/06/17 06:33 Docusate Sodium (Colace) 100 mg TID ORAL 10/12/17 13:30 11/10/17 13:29 11/06/17 09:06 Doxazosin Mesylate (Cardura) 2 mg BID ORAL 11/02/17 18:00 11/15/17 12:59 11/07/17 17:24 Ertapenem 1 gm/ Sodium Chloride 55 ml @ 110 mls/hr Q24H IVPB 11/06/17 16:00 11/11/17 15:59 11/07/17 07:58 Finasteride (Proscar) 5 mg DAILY ORAL 10/12/17 09:00 11/11/17 08:59 11/07/17 07:58 Heparin Sodium (Porcine) (Heparin 5000 units/ml) 5,000 units EVERY 12 HOURS SUBQ 10/11/17 21:00 11/10/17 20:59 10/24/17 22:35 Insulin Aspart (NovoLOG) BEFORE MEALS AND HS SUBQ 10/11/17 21:00 11/10/17 20:59 11/07/17 11:42 Insulin Detemir (Levemir) 12 units Q24H SUBQ 10/16/17 18:00 11/15/17 17:59 11/07/17 17:27 Menthol/Methyl Salicylate (Bengay) 1 applic BID TOPIC 10/18/17 20:00 11/17/17 19:59 11/07/17 17:25 Mirtazapine (Remeron) 15 mg BEDTIME ORAL 10/11/17 21:00 11/10/17 20:59 10/28/17 22:04 Ondansetron HCl (Zofran) 4 mg Q6H PRN IVP Nausea & Vomiting 10/11/17 16:45 11/10/17 16:44 Oxycodone HCl (OxyCONTIN) 10 mg EVERY 8 HOURS ORAL 11/01/17 22:00 11/08/17 21:59 11/07/17 14:05 Oxycodone HCl (Roxicodone) 5 mg Q3H PRN ORAL Breakthrough Pain 11/01/17 20:45 11/08/17 20:44 11/07/17 17:25 Polyethylene Glycol (Miralax) 17 gm HSPRN PRN ORAL Constipation 10/11/17 16:45 11/10/17 16:44 Risperidone (RisperDAL) 1 mg BEDTIME ORAL 10/14/17 21:00 11/13/17 20:59 10/24/17 22:34 Sodium Hypochlorite (Dakin's Quarter Strength) 1 applic DAILY TOPIC 10/20/17 09:00 11/19/17 08:59 11/07/17 07:57 Tamsulosin HCl (Flomax) 0.4 mg BID ORAL 10/12/17 13:30 11/10/17 13:29 11/07/17 17:25 Tigecycline 50 mg/ Dextrose 110 ml @ 220 mls/hr Q12HR@0800,2000 IVPB 11/05/17 20:00 11/12/17 20:00 11/07/17 08:05 Vitamin B Complex/ Vit C/Folic Acid (Nephrovite) 1 tab DAILY ORAL 10/12/17 09:00 11/11/17 08:59 11/07/17 08:01 Vitamin D (Vitamin D) 2,000 intlu DAILY ORAL 10/22/17 09:00 11/21/17 08:59 11/07/17 07:58 Problems: (1) Dementia with behavioral disturbance Assessment & Plan: Dementia with behavior disturbance and agitation. lacks capacity to make decisions lacks capacity to refuse meds PLAN: 1. Continue risperidone 1 mg at bedtime. 2. Continue Remeron 15 at bedtime. 3. Continue to follow and readjust the medications. Milton Lancaster M.D. Nov 07, 2017 18:35
[2017-11-07 20:00] VITALS: BP 137/55
[2017-11-07] MEDS: Dyna-Hex 2% Top Sol 2oz TOPIC SCH (20:00)
--- NOTE | 2017-11-07 23:25 | General Progress Note ---
Assessment/Plan Assessment/Plan #. Anemia due to underlying chronic disease. --> Continue to closely monitor and trend. Hemoglobin goal is above 7 --> anemia workup reviewed. Iron 9, TIBC 127, B12 1791, Folate 41 --> Hemoglobin has been above goal, no prbc needed. Hemoglobin levels remain stable. Currently 8.7 #. Anemia of iron deficiency, potentially secondary to osteomyelitis. --> Monitor closely. Trend cbc. --> On iron supplement. Improved. #. Anemia due to underlying kidney disease. --> Closely monitor, again improving. #. Leukocytosis, status post debridement, gram-negative jasmyn infection noted. --> Wbc count now WNL after antibiotic treatment. --> Remains on meropenem. Monitor closely. --> Infectious Disease Service following. #. Thrombocytosis, likely reactive process from underlying anemia, closely monitor for improvement. --> Resolved. #. Elevated creatinine, chronic kidney disease. #. Diabetes mellitus, on insulin sliding scale as needed as per primary team. #. Diastolic dysfunction. DC planning for SNF. Patient unable to take care of self at home. #. Encephalopathy. --> Pt unable to take care of self. Refuses to go home. Pending placement in SNF. --> Refusing some meds and treatment. Subjective Date patient seen: Nov 07, 2017 Constitutional: Denies: no symptoms, chills, diaphoresis, fever, malaise, weakness, other HEENT: Denies: no symptoms, eye pain, blurred vision, tearing, double vision, ear pain, ear discharge, nose pain, nose congestion, throat pain, throat swelling, mouth pain, mouth swelling, other Cardiovascular: Denies: no symptoms, chest pain, edema, irregular heart rate, lightheadedness, palpitations, syncope, other Respiratory: Denies: no symptoms, cough, orthopnea, shortness of breath, SOB with excertion, SOB at rest, sputum, stridor, wheezing, other Gastrointestinal/Abdominal: Denies: no symptoms, abdomen distended, abdominal pain, black stools, tarry stools, blood in stool, constipated, diarrhea, difficulty swallowing, nausea, poor appetite, poor fluid intake, rectal bleeding , vomiting, other Genitourinary: Denies: no symptoms, burning, discharge, frequency, flank pain, hematuria, incontinence, pain, urgency, other Neurologic/Psychiatric: Denies: no symptoms, anxiety, depressed, emotional problems, headache, numbness, paresthesia, pre-existing deficit, seizure, tingling, tremors, weakness, other Hematologic/Lymphatic: Reports: anemia Allergies: Coded Allergies: GABAPENTIN (Verified Allergy, Unknown, 10/11/17) OLIVE OIL (Verified Adverse Reaction, Severe, SPASM IN THE COLON, 01/18/14) PREGABALIN (Verified Adverse Reaction, Intermediate, "hypernervous", ) ACETAMINOPHEN (Verified Adverse Reaction, Mild, IRRITABILITY AND ELEVATED BLOOD PRESSURE, 01/18/14) IBUPROFEN (Verified Adverse Reaction, Mild, IRRITABILITY AND ELEVATED BLOOD PRESSURE, 01/18/14) Uncoded Allergies: SSRI (Allergy, Unknown, 10/11/17) Subjective Some foot pain noted. Afebrile. Still pending placement in SNF Objective Last 24 Hour Vital Signs Date Time Temp Pulse Resp B/P (MAP) Pulse Ox O2 Delivery O2 Flow Rate FiO2 11/07/17 20:00 98.1 63 20 137/55 100 98.1 11/07/17 16:00 97.8 78 20 116/65 97 97.8 11/07/17 12:00 98.0 71 20 128/48 97 98.0 11/07/17 08:00 97.9 63 20 149/61 97 97.9 11/07/17 04:00 98.1 65 20 133/72 97 98.1 11/07/17 00:00 98.2 65 21 141/46 98 98.2 Intake and Output 11/06/17 11/07/17 19:00 07:00 Intake Total 660 ml 330 ml Output Total 350 ml 750 ml Balance 310 ml -420 ml Intake Oral 660 ml IV Total 330 ml Output Urine Total 350 ml 750 ml # Voids 4 # Bowel Movements 1 Laboratory Tests 11/07/17 06:20: White Blood Count 9.1, Red Blood Count 3.45L, Hemoglobin 8.6L, Hematocrit 26.5L , Mean Corpuscular Volume 77L, Mean Corpuscular Hemoglobin 24.9L, Mean Corpuscular Hemoglobin Concent 32.3, Red Cell Distribution Width 16.1H, Platelet Count 291, Mean Platelet Volume 6.3L, Neutrophils (%) (Auto) 65.5, Lymphocytes (%) (Auto) 19.2L, Monocytes (%) (Auto) 7.7, Eosinophils (%) (Auto) 6.2H, Basophils (%) (Auto) 1.5, Erythrocyte Sedimentation Rate 34H, Sodium Level 142, Potassium Level 3.7, Chloride Level 106, Carbon Dioxide Level 29, Anion Gap 7, Blood Urea Nitrogen 41H, Creatinine 1.5H, Estimat Glomerular Filtration Rate , Glucose Level 84, Calcium Level 7.7L Height (Feet): 5 Height (Inches): 8.00 Weight (Pounds): 185 General Appearance: agitated Respiratory/Chest: decreased breath sounds Abdomen: soft Giovany Wiggins MD Nov 07, 2017 23:25
[2017-11-08] VITALS: BP 121/45
[2017-11-08 04:00] VITALS: BP 121/97
[2017-11-08] MEDS: NovoLOG Insulin Flexpen SUBQ SCH ×4 (05:40→21:38)
[2017-11-08] MEDS: oxyCONTIN 10mg tab ORAL SCH ×2 (05:54→14:19)
[2017-11-08 08:00] VITALS: BP 142/86
[2017-11-08] MEDS: Tigecycline 50 MG in D5W 110 ML IVPB SCH ×2 (08:39→21:35)
[2017-11-08] MEDS: Docusate 100mg cap ORAL SCH ×3 (09:00→17:38)
[2017-11-08] MEDS: Nephrovite tab (Rena-Vite) ORAL SCH (09:00)
[2017-11-08] MEDS: Doxazosin 1mg Tab ORAL SCH ×4 (09:00→18:00)
[2017-11-08] MEDS: Heparin 5000 units/ml inj SUBQ SCH ×2 (09:00→21:37)
[2017-11-08] MEDS: Tamsulosin 0.4mg cap ORAL SCH ×2 (09:00→17:38)
[2017-11-08] MEDS: Dakin's 0.125% Soln (Quarter Strength) 16oz TOPIC SCH (09:31)
[2017-11-08] MEDS: Ascorbic Acid 500mg tab ORAL SCH (09:31)
[2017-11-08] MEDS: Analgesic Balm 15gm TOPIC SCH ×2 (09:31→17:38)
[2017-11-08] MEDS: Vitamin D 1000 IU Tab ORAL SCH (09:31)
[2017-11-08 12:00] VITALS: BP 152/89
[2017-11-08] MEDS: oxyCODONE 5mg IR tab ORAL PRN (12:52)
--- NOTE | 2017-11-08 12:55 | General Progress Note ---
Assessment/Plan Problem List: (1) Dementia with behavioral disturbance Assessment & Plan: Dementia with behavior disturbance and agitation. lacks capacity to make decisions lacks capacity to refuse meds PLAN: 1. Continue risperidone 1 mg at bedtime. 2. Continue Remeron 15 at bedtime. 3. Continue to follow and readjust the medications. ICD Codes: F03.91 - Unspecified dementia with behavioral disturbance SNOMED: 2215536835188 Assessment/Plan Dementia with behavior disturbance and agitation. lacks capacity to make decisions lacks capacity to refuse meds PLAN: 1. Continue risperidone 1 mg at bedtime. 2. Continue Remeron 15 at bedtime. 3. Continue to follow and readjust the medications. Subjective Date patient seen: Nov 08, 2017 Allergies: Coded Allergies: GABAPENTIN (Verified Allergy, Unknown, 10/11/17) OLIVE OIL (Verified Adverse Reaction, Severe, SPASM IN THE COLON, 01/18/14) PREGABALIN (Verified Adverse Reaction, Intermediate, "hypernervous", ) ACETAMINOPHEN (Verified Adverse Reaction, Mild, IRRITABILITY AND ELEVATED BLOOD PRESSURE, 01/18/14) IBUPROFEN (Verified Adverse Reaction, Mild, IRRITABILITY AND ELEVATED BLOOD PRESSURE, 01/18/14) Uncoded Allergies: SSRI (Allergy, Unknown, 10/11/17) Subjective refused some meds the same irritable and uncooperative Objective Last 24 Hour Vital Signs Date Time Temp Pulse Resp B/P (MAP) Pulse Ox O2 Delivery O2 Flow Rate FiO2 11/08/17 08:00 99.6 96 16 142/86 95 99.6 11/08/17 04:00 97.3 52 20 121/97 99 97.3 11/08/17 00:00 97.3 71 20 121/45 97 97.3 11/07/17 20:00 98.1 63 20 137/55 100 98.1 11/07/17 16:00 97.8 78 20 116/65 97 97.8 Intake and Output 11/07/17 11/08/17 19:00 07:00 Intake Total 480 ml 110 ml Output Total 800 ml Balance 480 ml -690 ml Intake Oral 480 ml IV Total 110 ml Output Urine Total 800 ml # Voids 3 # Bowel Movements 1 Height (Feet): 5 Height (Inches): 8.00 Weight (Pounds): 185 Milton Lancaster M.D. Nov 08, 2017 12:55
--- NOTE | 2017-11-08 14:58 | Nephrology Progress Note ---
Assessment/Plan Problem List: (1) HTN (hypertension) (2) Diabetes mellitus (3) Ulcer of left heel (4) Renal insufficiency Assessment cr carlos above 3 now gradually lowering Foot ulcer, left left leg cellulitis, left heel ulcer, ? osteo, leukocytosis, lgt Renal insufficiency acute vs chronic Cr lowering now 1.6 Urinary retention: REFUSES NG Anemia UTI Plan fluid challenge Avoid Nephrotoxics Keep BP in check monitor renal parameters Anemia henry urine studies flomax start cardura Kidney FAMILIA Unremarkable kidneys. Negative for hydronephrosis Note inability of the patient to void with a bladder volume of 337 mL 2D echo :Left ventricular ejection fraction estimated to be 55-60%. No evidence of left ventricular hypertrophy. Subjective ROS Limited/Unobtainable: No Objective Objective Last 24 Hour Vital Signs Date Time Temp Pulse Resp B/P (MAP) Pulse Ox O2 Delivery O2 Flow Rate FiO2 11/08/17 14:19 99.6 11/08/17 08:00 99.6 96 16 142/86 95 99.6 11/08/17 04:00 97.3 52 20 121/97 99 97.3 11/08/17 00:00 97.3 71 20 121/45 97 97.3 11/07/17 20:00 98.1 63 20 137/55 100 98.1 11/07/17 16:00 97.8 78 20 116/65 97 97.8 Intake and Output 11/07/17 11/08/17 19:00 07:00 Intake Total 480 ml 110 ml Output Total 800 ml Balance 480 ml -690 ml Intake Oral 480 ml IV Total 110 ml Output Urine Total 800 ml # Voids 3 # Bowel Movements 1 Height (Feet): 5 Height (Inches): 8.00 Weight (Pounds): 185 General Appearance: no apparent distress Cardiovascular: tachycardia Respiratory/Chest: decreased breath sounds Abdomen: soft Objective no other changes IHSAN REGALADO Nov 08, 2017 14:58
[2017-11-08 15:53] VITALS: BP 142/51
[2017-11-08] MEDS: Ertapenem 1gm in NS 55ml IVPB SCH (16:44)
[2017-11-08] MEDS: Levemir Flexpen SUBQ SCH (17:38)
[2017-11-08 20:00] VITALS: BP 136/60
[2017-11-08] MEDS: Dyna-Hex 2% Top Sol 2oz TOPIC SCH (21:36)
--- NOTE | 2017-11-08 23:55 | General Progress Note ---
Assessment/Plan Problem List: (1) Gram-negative bacteremia Assessment & Plan: Bacterioides fragilis bacteremia ICD Codes: R78.81 - Bacteremia SNOMED: 006644523518 (2) Sepsis ICD Codes: A41.9 - Sepsis, unspecified organism SNOMED: 17920876 (3) Progressive osteomyelitis of the posterior calcaneus (4) Cellulitis of left lower extremity ICD Codes: L03.116 - Cellulitis of left lower limb SNOMED: 060171481 (5) L heel diabetic ulcer with concern for osteomyelitis (6) Complete tear with retraction of the calcaneal tendon (7) MISHEL on CKD (8) CKD stage 3 (9) DM2 (diabetes mellitus, type 2) Assessment & Plan: A1C 9.9 ICD Codes: E11.9 - Type 2 diabetes mellitus without complications SNOMED: 91686154 (10) HTN (hypertension) ICD Codes: I10 - Essential (primary) hypertension SNOMED: 64756974 (11) Diabetic neuropathy ICD Codes: E11.40 - Type 2 diabetes mellitus with diabetic neuropathy, unspecified SNOMED: 03338773, 566533844, 380256091 (12) Diabetic nephropathy ICD Codes: E11.21 - Type 2 diabetes mellitus with diabetic nephropathy SNOMED: 32177988, 971667785 Qualifiers: Qualified Codes: E11.21 - Type 2 diabetes mellitus with diabetic nephropathy (13) Hyponatremia ICD Codes: E87.1 - Hypo-osmolality and hyponatremia SNOMED: 05278746 (14) Chronic diabetic ulcer right foot (15) Medical non-compliance ICD Codes: Z91.19 - Patient's noncompliance with other medical treatment and regimen SNOMED: 294184000 (16) Acute on chronic diastolic (congestive) heart failure ICD Codes: I50.33 - Acute on chronic diastolic (congestive) heart failure SNOMED: 48955456, 649305956 (17) fall with head trauma Status: stable Assessment/Plan Podiatry, ID, renal consulted s/p vanco (10/11-10/16) Cont ertapenem + tigecycline per ID Will need total of 6 weeks of IV abx per ID given osteomyelitis - currently day #25 Daptomycin was d/c'd on 10/30 given elevated CK level s/p cefepime and flagyl (10/11-10/14) F/u cultures--blood culture showing GNR, wound culture showing Klebsiella and Proteus F/u repeat blood cultures--ngtd PICC line placed 10/17/17 Wound care per podiatry Check MRI L foot--shows progressive osteomyelitis, heel ulceration, soft tissue gas, complete tear of Achilles tendon s/p incision and drainage left foot, excisional debridement to the level of muscle left foot, and partial calcanectomy left foot on 10/13/17 NWB LLE Off wound vac now per podiatry Check renal U/S--shows bladder volume 337mL, refused connolly Flomax 0.4mg BID + finasteride 5mg daily Check TTE--EF 55-60% Pain control, bowel regimen Supportive care Appreciate psych consult Cont SNF meds ZENIA DC once authorization for SNF obtained Pt unable to go home as he lives alone, 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 Disposition: Once the patient is stable to leave the hospital, I anticipate the patient will likely be discharged to the following environment: back to SNF Discussed with patient/family, nursing staff, SW/CM, podiatry, ID regarding clinical status, treatment course, and disposition planning. D/w ID re abx on d/ c. D/w podiatry re wound care, d/c plan. D/w CM re dispo Time of note may not reflect time of encounter Subjective Date patient seen: Nov 08, 2017 Time patient seen: 15:20 ROS Limited/Unobtainable: No Constitutional: Reports: no symptoms HEENT: Reports: no symptoms Cardiovascular: Reports: no symptoms Respiratory: Reports: no symptoms Gastrointestinal/Abdominal: Reports: no symptoms Genitourinary: Reports: no symptoms Neurologic/Psychiatric: Reports: no symptoms Endocrine: Reports: no symptoms Hematologic/Lymphatic: Reports: no symptoms Allergies: Coded Allergies: GABAPENTIN (Verified Allergy, Unknown, 10/11/17) OLIVE OIL (Verified Adverse Reaction, Severe, SPASM IN THE COLON, 01/18/14) PREGABALIN (Verified Adverse Reaction, Intermediate, "hypernervous", ) ACETAMINOPHEN (Verified Adverse Reaction, Mild, IRRITABILITY AND ELEVATED BLOOD PRESSURE, 01/18/14) IBUPROFEN (Verified Adverse Reaction, Mild, IRRITABILITY AND ELEVATED BLOOD PRESSURE, 01/18/14) Uncoded Allergies: SSRI (Allergy, Unknown, 10/11/17) Subjective No acute o/n events s/p incision and drainage left foot, excisional debridement to the level of muscle left foot, and partial calcanectomy left foot POD#26 Scr improving Awaiting authorization for SNF as pt's Medicare days have run out Pt is noncompliant with meds Pt feels depressed and frustrated that he is still here Pt c/o foot pain. More awake, alert. Denies n/v, d/c, chest pain, SOB, abd pain Objective Last 24 Hour Vital Signs Date Time Temp Pulse Resp B/P (MAP) Pulse Ox O2 Delivery O2 Flow Rate FiO2 11/08/17 20:00 98.3 73 20 136/60 98 98.3 11/08/17 15:53 98.2 65 21 142/51 97 Room Air 98.2 11/08/17 14:19 99.6 11/08/17 12:00 97.8 96 17 152/89 96 97.8 11/08/17 08:00 99.6 96 16 142/86 95 99.6 11/08/17 04:00 97.3 52 20 121/97 99 97.3 11/08/17 00:00 97.3 71 20 121/45 97 97.3 Intake and Output 11/07/17 11/08/17 19:00 07:00 Intake Total 480 ml 110 ml Output Total 800 ml Balance 480 ml -690 ml Intake Oral 480 ml IV Total 110 ml Output Urine Total 800 ml # Voids 3 # Bowel Movements 1 Height (Feet): 5 Height (Inches): 8.00 Weight (Pounds): 185 Objective General: alert, cooperative, no distress, appears stated age Head: normocephalic, without obvious abnormality, atraumatic Eyes: conjunctivae/corneas clear. PERRL, EOM's intact Throat: lips, mucosa, and tongue normal. MMM Neck: supple, symmetrical, trachea midline, and no JVD Lungs: clear to auscultation bilaterally Heart: regular rate and rhythm, S1, S2 normal, no murmur, click, rub or gallop Abdomen: soft, non-tender, non-distended, bowel sounds normal Extremities: extremities normal, atraumatic, no cyanosis, 1-2+ pitting edema BLE Pulses: 2+ and symmetric Skin: Left foot dressing c/d/i, Right foot dressing c/d/i Neurologic: grossly normal, no focal deficits Conner Orozco M.D. Nov 08, 2017 23:55
[2017-11-09 04:00] VITALS: BP 150/56
[2017-11-09] MEDS: NovoLOG Insulin Flexpen SUBQ SCH ×4 (06:18→21:23)
[2017-11-09 08:00] VITALS: BP 149/71
[2017-11-09] MEDS: Nephrovite tab (Rena-Vite) ORAL SCH (09:00)
[2017-11-09] MEDS: Dakin's 0.125% Soln (Quarter Strength) 16oz TOPIC SCH (09:00)
[2017-11-09] MEDS: Analgesic Balm 15gm TOPIC SCH ×2 (09:00→18:00)
[2017-11-09] MEDS: Doxazosin 1mg Tab ORAL SCH ×2 (09:00→18:00)
[2017-11-09] MEDS: Heparin 5000 units/ml inj SUBQ SCH ×2 (09:00→21:00)
[2017-11-09] MEDS: Docusate 100mg cap ORAL SCH ×3 (09:00→18:00)
[2017-11-09] MEDS: Tamsulosin 0.4mg cap ORAL SCH ×2 (09:00→18:00)
[2017-11-09] MEDS: Tigecycline 50 MG in D5W 110 ML IVPB SCH ×2 (09:16→21:06)
[2017-11-09] MEDS: Vitamin D 1000 IU Tab ORAL SCH (09:21)
[2017-11-09] MEDS: Ascorbic Acid 500mg tab ORAL SCH (09:21)
--- NOTE | 2017-11-09 10:35 | Nephrology Progress Note ---
Assessment/Plan Problem List: (1) HTN (hypertension) (2) Diabetes mellitus (3) Ulcer of left heel (4) Renal insufficiency Assessment cr carlos above 3 now gradually lowering Foot ulcer, left left leg cellulitis, left heel ulcer, ? osteo, leukocytosis, lgt Renal insufficiency acute vs chronic Cr lowering now 1.6 Urinary retention: REFUSES NG Anemia UTI Plan no labs IV venofer fluid challenge Avoid Nephrotoxics Keep BP in check monitor renal parameters Anemia henry urine studies flomax start cardura Kidney FAMILIA Unremarkable kidneys. Negative for hydronephrosis Note inability of the patient to void with a bladder volume of 337 mL 2D echo :Left ventricular ejection fraction estimated to be 55-60%. No evidence of left ventricular hypertrophy. Subjective ROS Limited/Unobtainable: No Constitutional: Reports: malaise Objective Objective Last 24 Hour Vital Signs Date Time Temp Pulse Resp B/P (MAP) Pulse Ox O2 Delivery O2 Flow Rate FiO2 11/09/17 08:00 97.7 68 20 149/71 98 Room Air 97.7 11/09/17 04:00 97.6 61 20 150/56 97 97.6 11/08/17 20:00 98.3 73 20 136/60 98 98.3 11/08/17 15:53 98.2 65 21 142/51 97 Room Air 98.2 11/08/17 14:19 99.6 11/08/17 12:00 97.8 96 17 152/89 96 97.8 Intake and Output 11/08/17 11/09/17 19:00 07:00 Intake Total 645 ml 110 ml Output Total 400 ml 700 ml Balance 245 ml -590 ml Intake Oral 480 ml IV Total 165 ml 110 ml Output Urine Total 400 ml 700 ml # Voids 2 Height (Feet): 5 Height (Inches): 8.00 Weight (Pounds): 185 General Appearance: no apparent distress Objective no other changes IHSAN REGALADO Nov 09, 2017 10:35
[2017-11-09 12:00] VITALS: BP 135/81
[2017-11-09] MEDS: oxyCONTIN 10mg tab ORAL SCH ×2 (14:43→21:33)
[2017-11-09 16:00] VITALS: BP 130/68
--- NOTE | 2017-11-09 16:24 | Infectious Diseases Prog Note ---
Assessment/Plan Assessment/Plan ASSESSMENT AND PLAN: 1. bacteroides bacteremia, proteus/klebsiella/vre left heel/foot wound infection and osteomyelitis on MRI, sepsis, leukocytosis, ? fungal uti - elevated CK noted, ? secondary to fall vs daptomycin - s/p debridement, debridement as needed per podiatry - leg redness better, chronic edema - clinically better, podiatry note reviewed - continue wound care per podiatry - f/u labs, surveillance blood cultures negative, ck now wnl - sed rate significantly improved - invanz and tygecycline for now, because of elevated ck, may rechallenge with daptomycin at later date - abx started on 10/14, plan on 6 week course - day #26/42 - vre colonized - fungal uti s/p diflucan 2. Elevated creatinine, chronic renal failure, acute kidney injury, elevated ck , s/p fall, ? rhabdomyolysis 3. Anemia. 4. The patient with history of diabetes. 5. Hypertension. 6. Blood sugar and blood pressure treatment per primary. 7. Benign prostatic hypertrophy. 8. Atherosclerotic cardiovascular disease. 9. Chronic diastolic congestive heart failure. 10. Anemia. 11. Dizziness, headaches, weakness, and fatigue. 12. Allergies, acetaminophen, gabapentin, ibuprofen, Elavil, pregabalin, and selective serotonin reuptake inhibitors. 13. Social history negative. 14. Family history noncontributory. 15. MAR was noted. 16. Case discussed with RN. 17. Continue treatment per primary consultants. 18. Orders were entered. 19. Notes and records noted. Subjective Constitutional: Denies: fever HEENT: Denies: congestion Respiratory: Denies: shortness of breath Cardiovascular: Denies: chest pain Gastrointestinal/Abdominal: Reports: other - no abdominal pain; Denies: nausea , vomiting, diarrhea Genitourinary: Denies: dysuria, hematuria, frequency Neurologic: Denies: headache Psychiatric: Denies: depression Skin: Denies: rash Hematologic: Denies: bleeding Musculoskeletal: Denies: pain Allergies: Coded Allergies: GABAPENTIN (Verified Allergy, Unknown, 10/11/17) OLIVE OIL (Verified Adverse Reaction, Severe, SPASM IN THE COLON, 01/18/14) PREGABALIN (Verified Adverse Reaction, Intermediate, "hypernervous", ) ACETAMINOPHEN (Verified Adverse Reaction, Mild, IRRITABILITY AND ELEVATED BLOOD PRESSURE, 01/18/14) IBUPROFEN (Verified Adverse Reaction, Mild, IRRITABILITY AND ELEVATED BLOOD PRESSURE, 01/18/14) Uncoded Allergies: SSRI (Allergy, Unknown, 10/11/17) Objective Vital Signs Last 24 Hour Vital Signs Date Time Temp Pulse Resp B/P (MAP) Pulse Ox O2 Delivery O2 Flow Rate FiO2 11/09/17 14:43 97.7 11/09/17 12:00 97.7 72 20 135/81 99 Room Air 97.7 11/09/17 08:00 97.7 68 20 149/71 98 Room Air 97.7 11/09/17 04:00 97.6 61 20 150/56 97 97.6 11/08/17 20:00 98.3 73 20 136/60 98 98.3 Height (Feet): 5 Height (Inches): 8.00 Weight (Pounds): 185 General Appearance: no acute distress HEENT: normocephalic, atraumatic, anicteric, mucous membranes moist Respiratory/Chest: lungs clear, normal breath sounds, no accessory muscle use, respiratory distress Cardiovascular: normal rate, regular rhythm, no gallop/murmur, no JVD Abdomen: normal bowel sounds, soft, non tender, no organomegaly, non distended Genitourinary: other - no connolly Extremities: no cyanosis, other - left leg with less redness Skin: no rash, other - wounds - covered 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 No acute process otherwise. MRI left foot and ankle - Impression: Positive for progressive osteomyelitis of the posterior calcaneus, since prior study of 08/02/2017 Increasing ulceration of the overlying soft tissues, with possible exposure of the medial aspect of the calcaneal tuberosity. Small amount of gas within the medial soft tissues,. The related open wound or could indicate infection by gas-forming organism Complete tear with retraction of the calcaneal tendon, as described. Fluid in the tibiotalar joint. Probably reactive secondary to the above Diffuse edema of the subcutaneous fat. This could be due to cellulitis or could be related to hemodynamic abnormalities Other findings as noted Findings discussed by phone with Dr. Prieto at the time of interpretation Microbiology Date/Time Source Procedure Growth Status 10/14/17 08:50 Blood Blood Culture - Final NO GROWTH AFTER 5 DAYS Complete 10/11/17 17:00 Nasal Nares MRSA Culture - Final NO METHICILLIN RESISTANT STAPH AUREUS... Complete 10/30/17 04:15 Urine,Clean Catch Urine Culture - Final Jessie Albicans Complete 10/13/17 19:20 Foot Left Gram Stain - Final Complete 10/13/17 19:20 Aerobic Culture - Final Klebsiella Pneumoniae Proteus Mirabilis Enterococcus Faecium - Vre Complete 10/13/17 19:20 Foot Left Anaerobic Culture - Final NO ANAEROBES ISOLATED Complete Labs Test 11/07/17 06:20 White Blood Count 9.1 K/UL (4.8-10.8) Red Blood Count 3.45 M/UL (4.70-6.10) Hemoglobin 8.6 G/DL (14.2-18.0) Hematocrit 26.5 % (42.0-52.0) Mean Corpuscular Volume 77 FL (80-99) Mean Corpuscular Hemoglobin 24.9 PG (27.0-31.0) Mean Corpuscular Hemoglobin Concent 32.3 G/DL (32.0-36.0) Red Cell Distribution Width 16.1 % (11.6-14.8) Platelet Count 291 K/UL (150-450) Mean Platelet Volume 6.3 FL (6.5-10.1) Neutrophils (%) (Auto) 65.5 % (45.0-75.0) Lymphocytes (%) (Auto) 19.2 % (20.0-45.0) Monocytes (%) (Auto) 7.7 % (1.0-10.0) Eosinophils (%) (Auto) 6.2 % (0.0-3.0) Basophils (%) (Auto) 1.5 % (0.0-2.0) Erythrocyte Sedimentation Rate 34 MM/HR (0-20) Sodium Level 142 MMOL/L (136-145) Potassium Level 3.7 MMOL/L (3.5-5.1) Chloride Level 106 MMOL/L (98-107) Carbon Dioxide Level 29 MMOL/L (21-32) Anion Gap 7 mmol/L (5-15) Blood Urea Nitrogen 41 mg/dL (7-18) Creatinine 1.5 MG/DL (0.55-1.30) Estimat Glomerular Filtration Rate mL/min (>60) Glucose Level 84 MG/DL (74-106) Calcium Level 7.7 MG/DL (8.5-10.1) Current Medications Medications (Trade) Dose Ordered Sig/Dari Route PRN Reason Start Time Stop Time Status Last Admin Dose Admin Acetaminophen (Tylenol) 650 mg Q4H PRN ORAL Mild Pain (Scale 1-3), fever 10/11/17 16:45 11/10/17 16:44 Ascorbic Acid (Vitamin C) 500 mg DAILY ORAL 10/25/17 09:00 11/24/17 08:59 11/09/17 09:21 Bisacodyl (Dulcolax) 10 mg HSPRN PRN RECTAL Constipation 10/11/17 17:15 11/10/17 17:14 Chlorhexidine Gluconate (Sarah-Hex 2%) 1 applic DAILY@2000 TOPIC 10/31/17 20:00 11/30/17 19:59 11/08/17 21:36 Clotrimazole (Lotrimin) 1 applic EVERY 12 HOURS TOPIC 10/14/17 21:00 11/13/17 20:59 11/08/17 21:39 Dextrose (Dextrose 50%) STAT PRN IV Hypoglycemia 10/11/17 16:45 11/10/17 16:44 Diphenhydramine HCl (Benadryl) 25 mg Q6H PRN ORAL Itching 10/22/17 23:45 11/21/17 23:44 11/06/17 06:33 Docusate Sodium (Colace) 100 mg TID ORAL 10/12/17 13:30 11/10/17 13:29 11/06/17 09:06 Doxazosin Mesylate (Cardura) 2 mg BID ORAL 11/02/17 18:00 11/15/17 12:59 11/07/17 17:24 Ertapenem 1 gm/ Sodium Chloride 55 ml @ 110 mls/hr Q24H IVPB 11/06/17 16:00 11/25/17 15:59 11/08/17 16:44 Finasteride (Proscar) 5 mg DAILY ORAL 10/12/17 09:00 11/11/17 08:59 11/07/17 07:58 Heparin Sodium (Porcine) (Heparin 5000 units/ml) 5,000 units EVERY 12 HOURS SUBQ 10/11/17 21:00 11/10/17 20:59 11/08/17 21:37 Insulin Aspart (NovoLOG) BEFORE MEALS AND HS SUBQ 10/11/17 21:00 11/10/17 20:59 11/09/17 12:40 Insulin Detemir (Levemir) 12 units Q24H SUBQ 10/16/17 18:00 11/15/17 17:59 11/08/17 17:38 Iron Sucrose 200 mg/Sodium Chloride 120 ml @ 240 mls/hr ONCE ONCE IV 11/09/17 21:00 11/09/17 21:29 Menthol/Methyl Salicylate (Bengay) 1 applic BID TOPIC 10/18/17 20:00 11/17/17 19:59 11/08/17 09:31 Mirtazapine (Remeron) 15 mg BEDTIME ORAL 10/11/17 21:00 11/10/17 20:59 11/08/17 21:36 Ondansetron HCl (Zofran) 4 mg Q6H PRN IVP Nausea & Vomiting 10/11/17 16:45 11/10/17 16:44 Oxycodone HCl (OxyCONTIN) 10 mg Q8HR ORAL 11/09/17 14:00 11/16/17 13:59 11/09/17 14:43 Oxycodone HCl (Roxicodone) 5 mg Q3H PRN ORAL Breakthrough Pain 11/09/17 12:00 11/16/17 11:59 Polyethylene Glycol (Miralax) 17 gm HSPRN PRN ORAL Constipation 10/11/17 16:45 11/10/17 16:44 Risperidone (RisperDAL) 1 mg BEDTIME ORAL 10/14/17 21:00 11/13/17 20:59 11/08/17 21:36 Sodium Hypochlorite (Dakin's Quarter Strength) 1 applic DAILY TOPIC 10/20/17 09:00 11/19/17 08:59 11/08/17 09:31 Tamsulosin HCl (Flomax) 0.4 mg BID ORAL 10/12/17 13:30 11/10/17 13:29 11/07/17 17:25 Tigecycline 50 mg/ Dextrose 110 ml @ 220 mls/hr Q12HR@0800,2000 IVPB 11/05/17 20:00 11/25/17 19:59 11/09/17 09:16 Vitamin B Complex/ Vit C/Folic Acid (Nephrovite) 1 tab DAILY ORAL 10/12/17 09:00 11/11/17 08:59 11/07/17 08:01 Vitamin D (Vitamin D) 2,000 intlu DAILY ORAL 10/22/17 09:00 11/21/17 08:59 11/09/17 09:21 LARON HERNANDEZ Nov 09, 2017 16:24
[2017-11-09] MEDS: Ertapenem 1gm in NS 55ml IVPB SCH (17:04)
[2017-11-09] MEDS: Levemir Flexpen SUBQ SCH (17:08)
[2017-11-09] MEDS ORDERED: Tubing IV Secondary IV ONE (17:40)
[2017-11-09] MEDS ORDERED: NS 275ml ONE (17:40)
--- NOTE | 2017-11-09 20:05 | General Progress Note ---
Assessment/Plan Problem List: (1) Dementia with behavioral disturbance Assessment & Plan: Dementia with behavior disturbance and agitation. lacks capacity to make decisions lacks capacity to refuse meds PLAN: 1. Continue risperidone 1 mg at bedtime. 2. Continue Remeron 15 at bedtime. 3. Continue to follow and readjust the medications. ICD Codes: F03.91 - Unspecified dementia with behavioral disturbance SNOMED: 5769668807260 Assessment/Plan Dementia with behavior disturbance and agitation. lacks capacity to make decisions lacks capacity to refuse meds PLAN: 1. Continue risperidone 1 mg at bedtime. 2. Continue Remeron 15 at bedtime. 3. Continue to follow and readjust the medications. Subjective Date patient seen: Nov 09, 2017 Allergies: Coded Allergies: GABAPENTIN (Verified Allergy, Unknown, 10/11/17) OLIVE OIL (Verified Adverse Reaction, Severe, SPASM IN THE COLON, 01/18/14) PREGABALIN (Verified Adverse Reaction, Intermediate, "hypernervous", ) ACETAMINOPHEN (Verified Adverse Reaction, Mild, IRRITABILITY AND ELEVATED BLOOD PRESSURE, 01/18/14) IBUPROFEN (Verified Adverse Reaction, Mild, IRRITABILITY AND ELEVATED BLOOD PRESSURE, 01/18/14) Uncoded Allergies: SSRI (Allergy, Unknown, 10/11/17) Subjective refused some meds the same irritable and uncooperative Objective Last 24 Hour Vital Signs Date Time Temp Pulse Resp B/P (MAP) Pulse Ox O2 Delivery O2 Flow Rate FiO2 11/09/17 16:00 97.3 81 20 130/68 98 Room Air 97.3 11/09/17 14:43 97.7 11/09/17 12:00 97.7 72 20 135/81 99 Room Air 97.7 11/09/17 08:00 97.7 68 20 149/71 98 Room Air 97.7 11/09/17 04:00 97.6 61 20 150/56 97 97.6 Intake and Output 11/08/17 11/09/17 19:00 07:00 Intake Total 645 ml 110 ml Output Total 400 ml 700 ml Balance 245 ml -590 ml Intake Oral 480 ml IV Total 165 ml 110 ml Output Urine Total 400 ml 700 ml # Voids 2 Height (Feet): 5 Height (Inches): 8.00 Weight (Pounds): 185 Milton Lancaster M.D. Nov 09, 2017 20:05
[2017-11-09] MEDS ORDERED: Iron Sucrose 200 MG in NS 110 ML IV ONE (21:00)
[2017-11-09] MEDS: Dyna-Hex 2% Top Sol 2oz TOPIC SCH (21:05)
--- NOTE | 2017-11-09 22:26 | General Progress Note ---
Assessment/Plan Assessment/Plan #. Anemia due to underlying chronic disease. --> Continue to closely monitor and trend. Hemoglobin goal is above 7 --> anemia workup reviewed. Iron 9, TIBC 127, B12 1791, Folate 41 --> Hemoglobin has been above goal, no prbc needed. #. Anemia of iron deficiency, potentially secondary to osteomyelitis. --> Monitor closely. Trend cbc. --> On iron supplement. Improved. #. Anemia due to underlying kidney disease. --> Closely monitor, again improving. #. Leukocytosis, status post debridement, gram-negative jasmyn infection noted. --> Wbc count now WNL after antibiotic treatment. --> Remains on meropenem. Monitor closely. --> Infectious Disease Service following. #. Thrombocytosis, likely reactive process from underlying anemia, closely monitor for improvement. --> Resolved. #. Elevated creatinine, chronic kidney disease. #. Diabetes mellitus, on insulin sliding scale as needed as per primary team. #. Diastolic dysfunction. DC planning for SNF. Patient unable to take care of self at home. #. Encephalopathy. --> Pt unable to take care of self. Refuses to go home. Pending placement in SNF. --> Refusing some meds and treatment. Subjective Date patient seen: Nov 08, 2017 Constitutional: Denies: no symptoms, chills, diaphoresis, fever, malaise, weakness, other HEENT: Denies: no symptoms, eye pain, blurred vision, tearing, double vision, ear pain, ear discharge, nose pain, nose congestion, throat pain, throat swelling, mouth pain, mouth swelling, other Cardiovascular: Denies: no symptoms, chest pain, edema, irregular heart rate, lightheadedness, palpitations, syncope, other Respiratory: Denies: no symptoms, cough, orthopnea, shortness of breath, SOB with excertion, SOB at rest, sputum, stridor, wheezing, other Gastrointestinal/Abdominal: Denies: no symptoms, abdomen distended, abdominal pain, black stools, tarry stools, blood in stool, constipated, diarrhea, difficulty swallowing, nausea, poor appetite, poor fluid intake, rectal bleeding , vomiting, other Genitourinary: Denies: no symptoms, burning, discharge, frequency, flank pain, hematuria, incontinence, pain, urgency, other Neurologic/Psychiatric: Denies: no symptoms, anxiety, depressed, emotional problems, headache, numbness, paresthesia, pre-existing deficit, seizure, tingling, tremors, weakness, other Endocrine: Denies: no symptoms, excessive sweating, flushing, intolerance to cold, intolerance to heat, increased hunger, increased thirst, increased urine, unexplained weight gain, unexplained weight loss, other Hematologic/Lymphatic: Reports: anemia Allergies: Coded Allergies: GABAPENTIN (Verified Allergy, Unknown, 10/11/17) OLIVE OIL (Verified Adverse Reaction, Severe, SPASM IN THE COLON, 01/18/14) PREGABALIN (Verified Adverse Reaction, Intermediate, "hypernervous", ) ACETAMINOPHEN (Verified Adverse Reaction, Mild, IRRITABILITY AND ELEVATED BLOOD PRESSURE, 01/18/14) IBUPROFEN (Verified Adverse Reaction, Mild, IRRITABILITY AND ELEVATED BLOOD PRESSURE, 01/18/14) Uncoded Allergies: SSRI (Allergy, Unknown, 10/11/17) Subjective Encephalopathic. No new events. Objective Last 24 Hour Vital Signs Date Time Temp Pulse Resp B/P (MAP) Pulse Ox O2 Delivery O2 Flow Rate FiO2 11/09/17 20:00 97.0 61 20 96 Room Air 97.0 11/09/17 16:00 97.3 81 20 130/68 98 Room Air 97.3 11/09/17 14:43 97.7 11/09/17 12:00 97.7 72 20 135/81 99 Room Air 97.7 11/09/17 08:00 97.7 68 20 149/71 98 Room Air 97.7 11/09/17 04:00 97.6 61 20 150/56 97 97.6 Intake and Output 11/08/17 11/09/17 19:00 07:00 Intake Total 645 ml 110 ml Output Total 400 ml 700 ml Balance 245 ml -590 ml Intake Oral 480 ml IV Total 165 ml 110 ml Output Urine Total 400 ml 700 ml # Voids 2 Height (Feet): 5 Height (Inches): 8.00 Weight (Pounds): 185 General Appearance: confused Respiratory/Chest: decreased breath sounds Abdomen: soft Giovany Wiggins MD Nov 09, 2017 22:26
--- NOTE | 2017-11-09 22:27 | General Progress Note ---
Assessment/Plan Assessment/Plan #. Anemia due to underlying chronic disease. --> Continue to closely monitor and trend. Hemoglobin goal is above 7 --> anemia workup reviewed. Iron 9, TIBC 127, B12 1791, Folate 41 --> Hemoglobin has been above goal, no prbc needed. --> Refused blood draws #. Anemia of iron deficiency, potentially secondary to osteomyelitis. --> Monitor closely. Trend cbc. --> On iron supplement. Improved. #. Anemia due to underlying kidney disease. --> Closely monitor, again improving. #. Leukocytosis, status post debridement, gram-negative jasmyn infection noted. --> Wbc count now WNL after antibiotic treatment. --> Remains on meropenem. Monitor closely. --> Infectious Disease Service following. #. Thrombocytosis, likely reactive process from underlying anemia, closely monitor for improvement. --> Resolved. #. Elevated creatinine, chronic kidney disease. #. Diabetes mellitus, on insulin sliding scale as needed as per primary team. #. Diastolic dysfunction. DC planning for SNF. Patient unable to take care of self at home. #. Encephalopathy. --> Pt unable to take care of self. Refuses to go home. Pending placement in SNF. --> Refusing some meds and treatment. Subjective Date patient seen: Nov 09, 2017 Constitutional: Denies: no symptoms, chills, diaphoresis, fever, malaise, weakness, other HEENT: Denies: no symptoms, eye pain, blurred vision, tearing, double vision, ear pain, ear discharge, nose pain, nose congestion, throat pain, throat swelling, mouth pain, mouth swelling, other Cardiovascular: Denies: no symptoms, chest pain, edema, irregular heart rate, lightheadedness, palpitations, syncope, other Respiratory: Denies: no symptoms, cough, orthopnea, shortness of breath, SOB with excertion, SOB at rest, sputum, stridor, wheezing, other Gastrointestinal/Abdominal: Denies: no symptoms, abdomen distended, abdominal pain, black stools, tarry stools, blood in stool, constipated, diarrhea, difficulty swallowing, nausea, poor appetite, poor fluid intake, rectal bleeding , vomiting, other Genitourinary: Denies: no symptoms, burning, discharge, frequency, flank pain, hematuria, incontinence, pain, urgency, other Neurologic/Psychiatric: Denies: no symptoms, anxiety, depressed, emotional problems, headache, numbness, paresthesia, pre-existing deficit, seizure, tingling, tremors, weakness, other Hematologic/Lymphatic: Reports: anemia Allergies: Coded Allergies: GABAPENTIN (Verified Allergy, Unknown, 10/11/17) OLIVE OIL (Verified Adverse Reaction, Severe, SPASM IN THE COLON, 01/18/14) PREGABALIN (Verified Adverse Reaction, Intermediate, "hypernervous", ) ACETAMINOPHEN (Verified Adverse Reaction, Mild, IRRITABILITY AND ELEVATED BLOOD PRESSURE, 01/18/14) IBUPROFEN (Verified Adverse Reaction, Mild, IRRITABILITY AND ELEVATED BLOOD PRESSURE, 01/18/14) Uncoded Allergies: SSRI (Allergy, Unknown, 10/11/17) Subjective Encephalopathic. H/H stable. No fever or chills. Objective Last 24 Hour Vital Signs Date Time Temp Pulse Resp B/P (MAP) Pulse Ox O2 Delivery O2 Flow Rate FiO2 11/09/17 20:00 97.0 61 20 96 Room Air 97.0 11/09/17 16:00 97.3 81 20 130/68 98 Room Air 97.3 11/09/17 14:43 97.7 11/09/17 12:00 97.7 72 20 135/81 99 Room Air 97.7 11/09/17 08:00 97.7 68 20 149/71 98 Room Air 97.7 11/09/17 04:00 97.6 61 20 150/56 97 97.6 Intake and Output 11/08/17 11/09/17 19:00 07:00 Intake Total 645 ml 110 ml Output Total 400 ml 700 ml Balance 245 ml -590 ml Intake Oral 480 ml IV Total 165 ml 110 ml Output Urine Total 400 ml 700 ml # Voids 2 Height (Feet): 5 Height (Inches): 8.00 Weight (Pounds): 185 General Appearance: confused Respiratory/Chest: decreased breath sounds Abdomen: soft Giovany Wiggins MD Nov 09, 2017 22:27
[2017-11-10] VITALS (7 sets, daily range): BP systolic 143–161; BP diastolic 60–96
--- NOTE | 2017-11-10 00:25 | General Progress Note ---
Assessment/Plan Problem List: (1) Gram-negative bacteremia Assessment & Plan: Bacterioides fragilis bacteremia ICD Codes: R78.81 - Bacteremia SNOMED: 284481999527 (2) Sepsis ICD Codes: A41.9 - Sepsis, unspecified organism SNOMED: 05651299 (3) Progressive osteomyelitis of the posterior calcaneus (4) Cellulitis of left lower extremity ICD Codes: L03.116 - Cellulitis of left lower limb SNOMED: 214360631 (5) L heel diabetic ulcer with concern for osteomyelitis (6) Complete tear with retraction of the calcaneal tendon (7) MISHEL on CKD (8) CKD stage 3 (9) DM2 (diabetes mellitus, type 2) Assessment & Plan: A1C 9.9 ICD Codes: E11.9 - Type 2 diabetes mellitus without complications SNOMED: 82210461 (10) HTN (hypertension) ICD Codes: I10 - Essential (primary) hypertension SNOMED: 03795638 (11) Diabetic neuropathy ICD Codes: E11.40 - Type 2 diabetes mellitus with diabetic neuropathy, unspecified SNOMED: 53813497, 235781126, 558306331 (12) Diabetic nephropathy ICD Codes: E11.21 - Type 2 diabetes mellitus with diabetic nephropathy SNOMED: 16001431, 498212546 Qualifiers: Qualified Codes: E11.21 - Type 2 diabetes mellitus with diabetic nephropathy (13) Hyponatremia ICD Codes: E87.1 - Hypo-osmolality and hyponatremia SNOMED: 48814613 (14) Chronic diabetic ulcer right foot (15) Medical non-compliance ICD Codes: Z91.19 - Patient's noncompliance with other medical treatment and regimen SNOMED: 418774033 (16) Acute on chronic diastolic (congestive) heart failure ICD Codes: I50.33 - Acute on chronic diastolic (congestive) heart failure SNOMED: 94089045, 087218429 (17) fall with head trauma Status: stable Assessment/Plan Podiatry, ID, renal consulted s/p vanco (10/11-10/16) Cont ertapenem + tigecycline per ID Will need total of 6 weeks of IV abx per ID given osteomyelitis - currently day #26 Daptomycin was d/c'd on 10/30 given elevated CK level s/p cefepime and flagyl (10/11-10/14) F/u cultures--blood culture showing GNR, wound culture showing Klebsiella and Proteus F/u repeat blood cultures--ngtd PICC line placed 10/17/17 Wound care per podiatry Check MRI L foot--shows progressive osteomyelitis, heel ulceration, soft tissue gas, complete tear of Achilles tendon s/p incision and drainage left foot, excisional debridement to the level of muscle left foot, and partial calcanectomy left foot on 10/13/17 NWB LLE Off wound vac now per podiatry Check renal U/S--shows bladder volume 337mL, refused connolly Flomax 0.4mg BID + finasteride 5mg daily Check TTE--EF 55-60% Pain control, bowel regimen Supportive care Appreciate psych consult Cont SNF meds ZENIA DC once authorization for SNF obtained Pt unable to go home as he lives alone, does have nurse head but only 3h per day which is 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 Disposition: Once the patient is stable to leave the hospital, I anticipate the patient will likely be discharged to the following environment: back to SNF Discussed with patient/family, nursing staff, SW/CM, podiatry, ID regarding clinical status, treatment course, and disposition planning. D/w ID re abx on d/ c. D/w podiatry re wound care, d/c plan. D/w CM re dispo Time of note may not reflect time of encounter Subjective Date patient seen: Nov 09, 2017 Time patient seen: 15:00 Constitutional: Reports: weakness HEENT: Reports: no symptoms Cardiovascular: Reports: no symptoms Respiratory: Reports: no symptoms Gastrointestinal/Abdominal: Reports: no symptoms Genitourinary: Reports: no symptoms Neurologic/Psychiatric: Reports: no symptoms Endocrine: Reports: no symptoms Hematologic/Lymphatic: Reports: no symptoms Allergies: Coded Allergies: GABAPENTIN (Verified Allergy, Unknown, 10/11/17) OLIVE OIL (Verified Adverse Reaction, Severe, SPASM IN THE COLON, 01/18/14) PREGABALIN (Verified Adverse Reaction, Intermediate, "hypernervous", ) ACETAMINOPHEN (Verified Adverse Reaction, Mild, IRRITABILITY AND ELEVATED BLOOD PRESSURE, 01/18/14) IBUPROFEN (Verified Adverse Reaction, Mild, IRRITABILITY AND ELEVATED BLOOD PRESSURE, 01/18/14) Uncoded Allergies: SSRI (Allergy, Unknown, 10/11/17) Subjective No acute o/n events s/p incision and drainage left foot, excisional debridement to the level of muscle left foot, and partial calcanectomy left foot POD#27 SCr improving Awaiting authorization for SNF as pt's Medicare days have run out Pt is noncompliant with meds Pt feels depressed and frustrated that he is still here Pt c/o foot pain. More awake, alert. Denies n/v, d/c, chest pain, SOB, abd pain Objective Last 24 Hour Vital Signs Date Time Temp Pulse Resp B/P (MAP) Pulse Ox O2 Delivery O2 Flow Rate FiO2 11/09/17 20:00 97.0 61 20 96 Room Air 97.0 11/09/17 16:00 97.3 81 20 130/68 98 Room Air 97.3 11/09/17 14:43 97.7 11/09/17 12:00 97.7 72 20 135/81 99 Room Air 97.7 11/09/17 08:00 97.7 68 20 149/71 98 Room Air 97.7 11/09/17 04:00 97.6 61 20 150/56 97 97.6 Intake and Output 11/09/17 11/10/17 19:00 07:00 Intake Total 465 ml Balance 465 ml Intake Oral 300 ml IV Total 165 ml # Voids 6 Height (Feet): 5 Height (Inches): 8.00 Weight (Pounds): 185 Objective General: alert, cooperative, no distress, appears stated age Head: normocephalic, without obvious abnormality, atraumatic Eyes: conjunctivae/corneas clear. PERRL, EOM's intact Throat: lips, mucosa, and tongue normal. MMM Neck: supple, symmetrical, trachea midline, and no JVD Lungs: clear to auscultation bilaterally Heart: regular rate and rhythm, S1, S2 normal, no murmur, click, rub or gallop Abdomen: soft, non-tender, non-distended, bowel sounds normal Extremities: extremities normal, atraumatic, no cyanosis, 1-2+ pitting edema BLE Pulses: 2+ and symmetric Skin: Left foot dressing c/d/i, Right foot dressing c/d/i Neurologic: grossly normal, no focal deficits Conner Orozco M.D. Nov 10, 2017 00:25
[2017-11-10] MEDS: oxyCODONE 5mg IR tab ORAL PRN (03:15)
[2017-11-10] MEDS: oxyCONTIN 10mg tab ORAL SCH ×3 (06:12→21:58)
[2017-11-10] MEDS: NovoLOG Insulin Flexpen SUBQ SCH ×4 (06:22→20:58)
[2017-11-10 07:19] LABS: ANION GAP 9 mmol/L (5-15); BLOOD UREA NITROGEN 39 mg/dL (7-18); CALCIUM 7.9 MG/DL (8.5-10.1); CARBON DIOXIDE 26 MMOL/L (21-32); CHLORIDE 106 MMOL/L (98-107); CREATININE 1.5 MG/DL (0.55-1.30); POTASSIUM 3.9 MMOL/L (3.5-5.1); SODIUM 141 MMOL/L (136-145)
[2017-11-10 07:39] LABS: BASOPHILS % (AUTO) 1.1 % (0.0-2.0); EOSINOPHILS % (AUTO) 4.6 % (0.0-3.0); HEMATOCRIT 29.1 % (42.0-52.0); HEMOGLOBIN 9.5 G/DL (14.2-18.0); LYMPHOCYTES % (AUTO) 21.8 % (20.0-45.0); MEAN CORPUSCULAR VOLUME 77 FL (80-99); MONOCYTES % (AUTO) 6.3 % (1.0-10.0); NEUTROPHILS % (AUTO) 66.2 % (45.0-75.0); PLATELET COUNT 258 K/UL (150-450); RED BLOOD COUNT 3.76 M/UL (4.70-6.10); RED CELL DISTRIBUTION WIDTH 16.4 % (11.6-14.8); WHITE BLOOD COUNT 9.6 K/UL (4.8-10.8)
[2017-11-10] MEDS: Docusate 100mg cap ORAL SCH ×2 (09:00→12:33)
[2017-11-10] MEDS: Heparin 5000 units/ml inj SUBQ SCH (09:00)
[2017-11-10] MEDS: Vitamin D 1000 IU Tab ORAL SCH (09:00)
[2017-11-10] MEDS: Ascorbic Acid 500mg tab ORAL SCH (09:00)
[2017-11-10] MEDS: Tamsulosin 0.4mg cap ORAL SCH (09:00)
[2017-11-10] MEDS: Nephrovite tab (Rena-Vite) ORAL SCH (09:00)
[2017-11-10] MEDS: Doxazosin 1mg Tab ORAL SCH ×2 (09:00→17:45)
[2017-11-10] MEDS: Tigecycline 50 MG in D5W 110 ML IVPB SCH ×2 (09:03→20:55)
[2017-11-10] MEDS: Analgesic Balm 15gm TOPIC SCH ×2 (09:08→17:46)
[2017-11-10] MEDS: Dakin's 0.125% Soln (Quarter Strength) 16oz TOPIC SCH (09:08)
--- NOTE | 2017-11-10 09:27 | Nephrology Progress Note ---
Assessment/Plan Problem List: (1) HTN (hypertension) (2) Diabetes mellitus (3) Ulcer of left heel (4) Renal insufficiency Assessment cr carlos above 3 now gradually lowering Foot ulcer, left left leg cellulitis, left heel ulcer, ? osteo, leukocytosis, lgt Renal insufficiency acute vs chronic Cr lowering now 1.6 Urinary retention: REFUSES NG Anemia UTI Plan IV venofer fluid challenge Avoid Nephrotoxics Keep BP in check monitor renal parameters Anemia henry urine studies flomax start cardura Kidney FAMILIA Unremarkable kidneys. Negative for hydronephrosis Note inability of the patient to void with a bladder volume of 337 mL 2D echo :Left ventricular ejection fraction estimated to be 55-60%. No evidence of left ventricular hypertrophy. Subjective ROS Limited/Unobtainable: No Constitutional: Reports: malaise, weakness Objective Objective Last 24 Hour Vital Signs Date Time Temp Pulse Resp B/P (MAP) Pulse Ox O2 Delivery O2 Flow Rate FiO2 11/10/17 08:00 97.7 114 20 143/83 95 Room Air 97.7 11/10/17 04:00 97.9 65 20 157/60 98 Room Air 97.9 11/10/17 00:00 97.6 70 20 155/63 98 Room Air 97.6 11/09/17 20:00 97.0 61 20 96 Room Air 97.0 11/09/17 16:00 97.3 81 20 130/68 98 Room Air 97.3 11/09/17 14:43 97.7 11/09/17 12:00 97.7 72 20 135/81 99 Room Air 97.7 Intake and Output 11/09/17 11/10/17 19:00 07:00 Intake Total 465 ml 670 ml Output Total 450 ml Balance 465 ml 220 ml Intake Oral 300 ml 450 ml IV Total 165 ml 220 ml Output Urine Total 450 ml # Voids 6 3 # Bowel Movements 2 Laboratory Tests 11/10/17 06:20: White Blood Count 9.6, Red Blood Count 3.76L, Hemoglobin 9.5L, Hematocrit 29.1L , Mean Corpuscular Volume 77L, Mean Corpuscular Hemoglobin 25.3L, Mean Corpuscular Hemoglobin Concent 32.6, Red Cell Distribution Width 16.4H, Platelet Count 258, Mean Platelet Volume 7.3, Neutrophils (%) (Auto) 66.2, Lymphocytes (%) (Auto) 21.8, Monocytes (%) (Auto) 6.3, Eosinophils (%) (Auto) 4.6H, Basophils (%) (Auto) 1.1, Sodium Level 141, Potassium Level 3.9, Chloride Level 106, Carbon Dioxide Level 26, Anion Gap 9, Blood Urea Nitrogen 39H, Creatinine 1.5H, Estimat Glomerular Filtration Rate , Glucose Level 132H, Calcium Level 7.9L Height (Feet): 5 Height (Inches): 8.00 Weight (Pounds): 185 General Appearance: no apparent distress Objective no other changes IHSAN REGALADO Nov 10, 2017 09:26
--- NOTE | 2017-11-10 12:13 | General Progress Note ---
Assessment/Plan Problem List: (1) Gram-negative bacteremia Assessment & Plan: Bacterioides fragilis bacteremia ICD Codes: R78.81 - Bacteremia SNOMED: 069770492816 (2) Sepsis ICD Codes: A41.9 - Sepsis, unspecified organism SNOMED: 25838286 (3) Progressive osteomyelitis of the posterior calcaneus (4) Cellulitis of left lower extremity ICD Codes: L03.116 - Cellulitis of left lower limb SNOMED: 258478127 (5) L heel diabetic ulcer with concern for osteomyelitis (6) Complete tear with retraction of the calcaneal tendon (7) MISHEL on CKD (8) CKD stage 3 (9) DM2 (diabetes mellitus, type 2) Assessment & Plan: A1C 9.9 ICD Codes: E11.9 - Type 2 diabetes mellitus without complications SNOMED: 34955465 (10) HTN (hypertension) ICD Codes: I10 - Essential (primary) hypertension SNOMED: 60769145 (11) Diabetic neuropathy ICD Codes: E11.40 - Type 2 diabetes mellitus with diabetic neuropathy, unspecified SNOMED: 53387140, 838875116, 615766478 (12) Diabetic nephropathy ICD Codes: E11.21 - Type 2 diabetes mellitus with diabetic nephropathy SNOMED: 42598581, 835968298 Qualifiers: Qualified Codes: E11.21 - Type 2 diabetes mellitus with diabetic nephropathy (13) Hyponatremia ICD Codes: E87.1 - Hypo-osmolality and hyponatremia SNOMED: 41667893 (14) Chronic diabetic ulcer right foot (15) Medical non-compliance ICD Codes: Z91.19 - Patient's noncompliance with other medical treatment and regimen SNOMED: 715696138 (16) Acute on chronic diastolic (congestive) heart failure ICD Codes: I50.33 - Acute on chronic diastolic (congestive) heart failure SNOMED: 09782352, 479802263 (17) fall with head trauma Assessment/Plan Podiatry, ID, renal consulted s/p vanco (10/11-10/16) Cont ertapenem + tigecycline per ID Will need total of 6 weeks of IV abx per ID given osteomyelitis - currently day # Daptomycin was d/c'd on 10/30 given elevated CK level s/p cefepime and flagyl (10/11-10/14) F/u cultures--blood culture showing GNR, wound culture showing Klebsiella and Proteus F/u repeat blood cultures--ngtd PICC line placed 10/17/17 Wound care per podiatry Check MRI L foot--shows progressive osteomyelitis, heel ulceration, soft tissue gas, complete tear of Achilles tendon s/p incision and drainage left foot, excisional debridement to the level of muscle left foot, and partial calcanectomy left foot on 10/13/17 [facility] LLE Off wound vac now per podiatry Check renal U/S--shows bladder volume 337mL, refused connolly Flomax 0.4mg BID + finasteride 5mg daily Check TTE--EF 55-60% Pain control, bowel regimen Supportive care Appreciate psych consult Cont SNF meds ZENIA DC once authorization for SNF obtained Pt unable to go home as he lives alone, 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 Disposition: Once the patient is stable to leave the hospital, I anticipate the patient will likely be discharged to the following environment: back to SNF Discussed with patient/family, nursing staff, SW/CM, podiatry, ID regarding clinical status, treatment course, and disposition planning. D/w ID re abx on d/ c. D/w podiatry re wound care, d/c plan. D/w CM re dispo Time of note may not reflect time of encounter Subjective Date patient seen: Nov 10, 2017 Time patient seen: 12:13 Allergies: Coded Allergies: GABAPENTIN (Verified Allergy, Unknown, 10/11/17) OLIVE OIL (Verified Adverse Reaction, Severe, SPASM IN THE COLON, 01/18/14) PREGABALIN (Verified Adverse Reaction, Intermediate, "hypernervous", ) ACETAMINOPHEN (Verified Adverse Reaction, Mild, IRRITABILITY AND ELEVATED BLOOD PRESSURE, 01/18/14) IBUPROFEN (Verified Adverse Reaction, Mild, IRRITABILITY AND ELEVATED BLOOD PRESSURE, 01/18/14) Uncoded Allergies: SSRI (Allergy, Unknown, 10/11/17) Subjective No acute o/n events s/p incision and drainage left foot, excisional debridement to the level of muscle left foot, and partial calcanectomy left foot POD#27 SCr improving Awaiting authorization for SNF as pt's Medicare days have run out Pt is noncompliant with meds Pt feels depressed and frustrated that he is still here Pt c/o foot pain. More awake, alert. Denies n/v, d/c, chest pain, SOB, abd pain Objective Last 24 Hour Vital Signs Date Time Temp Pulse Resp B/P (MAP) Pulse Ox O2 Delivery O2 Flow Rate FiO2 11/10/17 08:00 97.7 114 20 143/83 95 Room Air 97.7 11/10/17 04:00 97.9 65 20 157/60 98 Room Air 97.9 11/10/17 00:00 97.6 70 20 155/63 98 Room Air 97.6 11/09/17 20:00 97.0 61 20 96 Room Air 97.0 11/09/17 16:00 97.3 81 20 130/68 98 Room Air 97.3 11/09/17 14:43 97.7 Intake and Output 11/09/17 11/10/17 19:00 07:00 Intake Total 465 ml 670 ml Output Total 450 ml Balance 465 ml 220 ml Intake Oral 300 ml 450 ml IV Total 165 ml 220 ml Output Urine Total 450 ml # Voids 6 3 # Bowel Movements 2 Laboratory Tests 11/10/17 06:20: White Blood Count 9.6, Red Blood Count 3.76L, Hemoglobin 9.5L, Hematocrit 29.1L , Mean Corpuscular Volume 77L, Mean Corpuscular Hemoglobin 25.3L, Mean Corpuscular Hemoglobin Concent 32.6, Red Cell Distribution Width 16.4H, Platelet Count 258, Mean Platelet Volume 7.3, Neutrophils (%) (Auto) 66.2, Lymphocytes (%) (Auto) 21.8, Monocytes (%) (Auto) 6.3, Eosinophils (%) (Auto) 4.6H, Basophils (%) (Auto) 1.1, Sodium Level 141, Potassium Level 3.9, Chloride Level 106, Carbon Dioxide Level 26, Anion Gap 9, Blood Urea Nitrogen 39H, Creatinine 1.5H, Estimat Glomerular Filtration Rate , Glucose Level 132H, Calcium Level 7.9L Height (Feet): 5 Height (Inches): 8.00 Weight (Pounds): 185 Objective General: alert, cooperative, no distress, appears stated age Head: normocephalic, without obvious abnormality, atraumatic Eyes: conjunctivae/corneas clear. PERRL, EOM's intact Throat: lips, mucosa, and tongue normal. MMM Neck: supple, symmetrical, trachea midline, and no JVD Lungs: clear to auscultation bilaterally Heart: regular rate and rhythm, S1, S2 normal, no murmur, click, rub or gallop Abdomen: soft, non-tender, non-distended, bowel sounds normal Extremities: extremities normal, atraumatic, no cyanosis, 1-2+ pitting edema BLE Pulses: 2+ and symmetric Skin: Left foot dressing c/d/i, Right foot dressing c/d/i Neurologic: grossly normal, no focal deficits Conner Orozco M.D. Nov 10, 2017 12:13
--- NOTE | 2017-11-10 13:42 | General Progress Note ---
Assessment/Plan Problem List: (1) Dementia with behavioral disturbance Assessment & Plan: Dementia with behavior disturbance and agitation. lacks capacity to make decisions lacks capacity to refuse meds PLAN: 1. Continue risperidone 1 mg at bedtime. 2. Continue Remeron 15 at bedtime. 3. Continue to follow and readjust the medications. ICD Codes: F03.91 - Unspecified dementia with behavioral disturbance SNOMED: 3130325257944 Status: stable, progressing Assessment/Plan Dementia with behavior disturbance and agitation. lacks capacity to make decisions lacks capacity to refuse meds PLAN: 1. Continue risperidone 1 mg at bedtime. 2. Continue Remeron 15 at bedtime. 3. Continue to follow and readjust the medications. Subjective Date patient seen: Nov 10, 2017 Neurologic/Psychiatric: Reports: anxiety, depressed Allergies: Coded Allergies: GABAPENTIN (Verified Allergy, Unknown, 10/11/17) OLIVE OIL (Verified Adverse Reaction, Severe, SPASM IN THE COLON, 01/18/14) PREGABALIN (Verified Adverse Reaction, Intermediate, "hypernervous", ) ACETAMINOPHEN (Verified Adverse Reaction, Mild, IRRITABILITY AND ELEVATED BLOOD PRESSURE, 01/18/14) IBUPROFEN (Verified Adverse Reaction, Mild, IRRITABILITY AND ELEVATED BLOOD PRESSURE, 01/18/14) Uncoded Allergies: SSRI (Allergy, Unknown, 10/11/17) Subjective the same irritable and uncooperative Objective Last 24 Hour Vital Signs Date Time Temp Pulse Resp B/P (MAP) Pulse Ox O2 Delivery O2 Flow Rate FiO2 11/10/17 12:00 97.5 87 20 155/60 99 Room Air 97.5 11/10/17 08:00 97.7 114 20 143/83 95 Room Air 97.7 11/10/17 04:00 97.9 65 20 157/60 98 Room Air 97.9 11/10/17 00:00 97.6 70 20 155/63 98 Room Air 97.6 11/09/17 20:00 97.0 61 20 96 Room Air 97.0 11/09/17 16:00 97.3 81 20 130/68 98 Room Air 97.3 11/09/17 14:43 97.7 Intake and Output 11/09/17 11/10/17 19:00 07:00 Intake Total 465 ml 670 ml Output Total 450 ml Balance 465 ml 220 ml Intake Oral 300 ml 450 ml IV Total 165 ml 220 ml Output Urine Total 450 ml # Voids 6 3 # Bowel Movements 2 Laboratory Tests 11/10/17 06:20: White Blood Count 9.6, Red Blood Count 3.76L, Hemoglobin 9.5L, Hematocrit 29.1L , Mean Corpuscular Volume 77L, Mean Corpuscular Hemoglobin 25.3L, Mean Corpuscular Hemoglobin Concent 32.6, Red Cell Distribution Width 16.4H, Platelet Count 258, Mean Platelet Volume 7.3, Neutrophils (%) (Auto) 66.2, Lymphocytes (%) (Auto) 21.8, Monocytes (%) (Auto) 6.3, Eosinophils (%) (Auto) 4.6H, Basophils (%) (Auto) 1.1, Sodium Level 141, Potassium Level 3.9, Chloride Level 106, Carbon Dioxide Level 26, Anion Gap 9, Blood Urea Nitrogen 39H, Creatinine 1.5H, Estimat Glomerular Filtration Rate , Glucose Level 132H, Calcium Level 7.9L Height (Feet): 5 Height (Inches): 8.00 Weight (Pounds): 185 General Appearance: no apparent distress, alert Neurologic: depressed affect Milton Lancaster M.D. Nov 10, 2017 13:42
[2017-11-10] MEDS: Ertapenem 1gm in NS 55ml IVPB SCH (16:18)
[2017-11-10] MEDS: Levemir Flexpen SUBQ SCH (17:45)
[2017-11-10] MEDS: Dyna-Hex 2% Top Sol 2oz TOPIC SCH (20:55)
--- NOTE | 2017-11-10 23:30 | General Progress Note ---
Assessment/Plan Assessment/Plan #. Anemia due to underlying chronic disease. --> Continue to closely monitor and trend. Hemoglobin goal is above 7 --> anemia workup reviewed. Iron 9, TIBC 127, B12 1791, Folate 41 --> Hemoglobin has been above goal, no prbc needed. #. Anemia of iron deficiency, potentially secondary to osteomyelitis. --> Monitor closely. Trend cbc. --> On iron supplement. Improved. --> Hemoglobin levels have been stable. #. Anemia due to underlying kidney disease. --> Closely monitor, again improving. #. Leukocytosis, status post debridement, gram-negative jasmyn infection noted. --> Wbc count now WNL after antibiotic treatment. --> Remains on meropenem. Monitor closely. --> Infectious Disease Service following. #. Thrombocytosis, likely reactive process from underlying anemia, closely monitor for improvement. --> Resolved. #. Elevated creatinine, chronic kidney disease. #. Diabetes mellitus, on insulin sliding scale as needed as per primary team. #. Diastolic dysfunction. DC planning for SNF. Patient unable to take care of self at home. #. Encephalopathy. --> Pt unable to take care of self. Refuses to go home. Pending placement in SNF. --> Refusing some meds and treatment. Subjective Date patient seen: Nov 10, 2017 Constitutional: Denies: no symptoms, chills, diaphoresis, fever, malaise, weakness, other HEENT: Denies: no symptoms, eye pain, blurred vision, tearing, double vision, ear pain, ear discharge, nose pain, nose congestion, throat pain, throat swelling, mouth pain, mouth swelling, other Cardiovascular: Denies: no symptoms, chest pain, edema, irregular heart rate, lightheadedness, palpitations, syncope, other Respiratory: Denies: no symptoms, cough, orthopnea, shortness of breath, SOB with excertion, SOB at rest, sputum, stridor, wheezing, other Gastrointestinal/Abdominal: Denies: no symptoms, abdomen distended, abdominal pain, black stools, tarry stools, blood in stool, constipated, diarrhea, difficulty swallowing, nausea, poor appetite, poor fluid intake, rectal bleeding , vomiting, other Genitourinary: Denies: no symptoms, burning, discharge, frequency, flank pain, hematuria, incontinence, pain, urgency, other Neurologic/Psychiatric: Denies: no symptoms, anxiety, depressed, emotional problems, headache, numbness, paresthesia, pre-existing deficit, seizure, tingling, tremors, weakness, other Hematologic/Lymphatic: Reports: anemia Allergies: Coded Allergies: GABAPENTIN (Verified Allergy, Unknown, 10/11/17) OLIVE OIL (Verified Adverse Reaction, Severe, SPASM IN THE COLON, 01/18/14) PREGABALIN (Verified Adverse Reaction, Intermediate, "hypernervous", ) ACETAMINOPHEN (Verified Adverse Reaction, Mild, IRRITABILITY AND ELEVATED BLOOD PRESSURE, 01/18/14) IBUPROFEN (Verified Adverse Reaction, Mild, IRRITABILITY AND ELEVATED BLOOD PRESSURE, 01/18/14) Uncoded Allergies: SSRI (Allergy, Unknown, 10/11/17) Subjective Encephalopathic. Noncompliant with meds. Agitated. Objective Last 24 Hour Vital Signs Date Time Temp Pulse Resp B/P (MAP) Pulse Ox O2 Delivery O2 Flow Rate FiO2 11/10/17 20:45 98.3 78 20 143/75 96 Room Air 98.3 11/10/17 20:00 97.0 62 20 160/71 96 97.0 11/10/17 16:00 97.6 62 20 161/96 98 Room Air 97.6 11/10/17 12:00 97.5 87 20 155/60 99 Room Air 97.5 11/10/17 08:00 97.7 114 20 143/83 95 Room Air 97.7 11/10/17 04:00 97.9 65 20 157/60 98 Room Air 97.9 11/10/17 00:00 97.6 70 20 155/63 98 Room Air 97.6 Intake and Output 11/09/17 11/10/17 19:00 07:00 Intake Total 465 ml 670 ml Output Total 450 ml Balance 465 ml 220 ml Intake Oral 300 ml 450 ml IV Total 165 ml 220 ml Output Urine Total 450 ml # Voids 6 3 # Bowel Movements 2 Laboratory Tests 11/10/17 06:20: White Blood Count 9.6, Red Blood Count 3.76L, Hemoglobin 9.5L, Hematocrit 29.1L , Mean Corpuscular Volume 77L, Mean Corpuscular Hemoglobin 25.3L, Mean Corpuscular Hemoglobin Concent 32.6, Red Cell Distribution Width 16.4H, Platelet Count 258, Mean Platelet Volume 7.3, Neutrophils (%) (Auto) 66.2, Lymphocytes (%) (Auto) 21.8, Monocytes (%) (Auto) 6.3, Eosinophils (%) (Auto) 4.6H, Basophils (%) (Auto) 1.1, Sodium Level 141, Potassium Level 3.9, Chloride Level 106, Carbon Dioxide Level 26, Anion Gap 9, Blood Urea Nitrogen 39H, Creatinine 1.5H, Estimat Glomerular Filtration Rate , Glucose Level 132H, Calcium Level 7.9L Height (Feet): 5 Height (Inches): 8.00 Weight (Pounds): 185 General Appearance: agitated Respiratory/Chest: decreased breath sounds Abdomen: soft Giovany Wiggins MD Nov 10, 2017 23:30
[2017-11-11] VITALS: BP 166/55
[2017-11-11 04:00] VITALS: BP 136/51
[2017-11-11] MEDS: oxyCONTIN 10mg tab ORAL SCH ×3 (05:51→21:45)
[2017-11-11] MEDS: NovoLOG Insulin Flexpen SUBQ SCH ×4 (06:01→20:43)
[2017-11-11] MEDS: Doxazosin 1mg Tab ORAL SCH ×2 (09:00→17:38)
[2017-11-11] MEDS: Vitamin D 1000 IU Tab ORAL SCH (09:00)
[2017-11-11] MEDS: Tigecycline 50 MG in D5W 110 ML IVPB SCH ×2 (10:02→20:42)
[2017-11-11] MEDS: Ascorbic Acid 500mg tab ORAL SCH (10:03)
[2017-11-11] MEDS: Dakin's 0.125% Soln (Quarter Strength) 16oz TOPIC SCH (10:05)
[2017-11-11] MEDS: Analgesic Balm 15gm TOPIC SCH ×2 (10:05→17:38)
--- NOTE | 2017-11-11 11:32 | Nephrology Progress Note ---
Assessment/Plan Problem List: (1) HTN (hypertension) (2) Diabetes mellitus (3) Ulcer of left heel (4) Renal insufficiency Assessment cr carlos above 3 now gradually lowering Foot ulcer, left left leg cellulitis, left heel ulcer, ? osteo, leukocytosis, lgt Renal insufficiency acute vs chronic Cr lowering now 1.6 Urinary retention: REFUSES NG Anemia UTI Plan IV venofer fluid challenge Avoid Nephrotoxics Keep BP in check monitor renal parameters Anemia henry urine studies flomax start cardura Kidney FAMILIA Unremarkable kidneys. Negative for hydronephrosis Note inability of the patient to void with a bladder volume of 337 mL 2D echo :Left ventricular ejection fraction estimated to be 55-60%. No evidence of left ventricular hypertrophy. Subjective ROS Limited/Unobtainable: No Constitutional: Reports: malaise Objective Objective Last 24 Hour Vital Signs Date Time Temp Pulse Resp B/P (MAP) Pulse Ox O2 Delivery O2 Flow Rate FiO2 11/11/17 04:00 98.0 63 20 136/51 97 98.0 11/11/17 00:00 98.5 64 20 166/55 99 Room Air 98.5 11/10/17 20:45 98.3 78 20 143/75 96 Room Air 98.3 11/10/17 20:00 97.0 62 20 160/71 96 97.0 11/10/17 16:00 97.6 62 20 161/96 98 Room Air 97.6 11/10/17 12:00 97.5 87 20 155/60 99 Room Air 97.5 Intake and Output 11/10/17 11/11/17 19:00 07:00 Intake Total 120 ml 220 ml Output Total 500 ml 650 ml Balance -380 ml -430 ml Intake Oral 120 ml IV Total 220 ml Output Urine Total 500 ml 650 ml # Voids 4 1 Height (Feet): 5 Height (Inches): 8.00 Weight (Pounds): 185 General Appearance: no apparent distress, lethargic Objective no other changes ISHAN REGALADO Nov 11, 2017 11:32
[2017-11-11 12:00] VITALS: BP 123/61
--- NOTE | 2017-11-11 13:18 | General Progress Note ---
Assessment/Plan Problem List: (1) Gram-negative bacteremia Assessment & Plan: Bacterioides fragilis bacteremia ICD Codes: R78.81 - Bacteremia SNOMED: 356310891200 (2) Sepsis ICD Codes: A41.9 - Sepsis, unspecified organism SNOMED: 26481761 (3) Progressive osteomyelitis of the posterior calcaneus (4) Cellulitis of left lower extremity ICD Codes: L03.116 - Cellulitis of left lower limb SNOMED: 492429589 (5) L heel diabetic ulcer with concern for osteomyelitis (6) Complete tear with retraction of the calcaneal tendon (7) MISHEL on CKD (8) CKD stage 3 (9) DM2 (diabetes mellitus, type 2) Assessment & Plan: A1C 9.9 ICD Codes: E11.9 - Type 2 diabetes mellitus without complications SNOMED: 81756449 (10) HTN (hypertension) ICD Codes: I10 - Essential (primary) hypertension SNOMED: 70887063 (11) Diabetic neuropathy ICD Codes: E11.40 - Type 2 diabetes mellitus with diabetic neuropathy, unspecified SNOMED: 06775891, 665312497, 504840843 (12) Diabetic nephropathy ICD Codes: E11.21 - Type 2 diabetes mellitus with diabetic nephropathy SNOMED: 59832994, 778354285 Qualifiers: Qualified Codes: E11.21 - Type 2 diabetes mellitus with diabetic nephropathy (13) Hyponatremia ICD Codes: E87.1 - Hypo-osmolality and hyponatremia SNOMED: 09545205 (14) Chronic diabetic ulcer right foot (15) Medical non-compliance ICD Codes: Z91.19 - Patient's noncompliance with other medical treatment and regimen SNOMED: 045462209 (16) Acute on chronic diastolic (congestive) heart failure ICD Codes: I50.33 - Acute on chronic diastolic (congestive) heart failure SNOMED: 90059660, 575146770 (17) fall with head trauma Status: stable Assessment/Plan Podiatry, ID, renal consulted s/p vanco (10/11-10/16) Cont ertapenem + tigecycline per ID Will need total of 6 weeks of IV abx per ID given osteomyelitis - currently day #28/42 Daptomycin was d/c'd on 10/30 given elevated CK level s/p cefepime and flagyl (10/11-10/14) F/u cultures--blood culture showing GNR, wound culture showing Klebsiella and Proteus F/u repeat blood cultures--ngtd PICC line placed 10/17/17 Wound care per podiatry Check MRI L foot--shows progressive osteomyelitis, heel ulceration, soft tissue gas, complete tear of Achilles tendon s/p incision and drainage left foot, excisional debridement to the level of muscle left foot, and partial calcanectomy left foot on 10/13/17 NWB LLE Off wound vac now per podiatry Check renal U/S--shows bladder volume 337mL, refused connolly Flomax 0.4mg BID + finasteride 5mg daily Check TTE--EF 55-60% Pain control, bowel regimen Supportive care Appreciate psych consult Cont SNF meds ZENIA DC once authorization for SNF obtained Pt unable to go home as he lives alone, 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 Disposition: Once the patient is stable to leave the hospital, I anticipate the patient will likely be discharged to the following environment: back to SNF Discussed with patient/family, nursing staff, SW/CM, podiatry, ID regarding clinical status, treatment course, and disposition planning. D/w ID re abx on d/ c. D/w podiatry re wound care, d/c plan. D/w CM re dispo Time of note may not reflect time of encounter Subjective Date patient seen: Nov 11, 2017 Time patient seen: 13:18 ROS Limited/Unobtainable: No Constitutional: Reports: no symptoms HEENT: Reports: no symptoms Cardiovascular: Reports: no symptoms Respiratory: Reports: no symptoms Gastrointestinal/Abdominal: Reports: no symptoms Genitourinary: Reports: no symptoms Neurologic/Psychiatric: Reports: no symptoms Endocrine: Reports: no symptoms Hematologic/Lymphatic: Reports: no symptoms Allergies: Coded Allergies: GABAPENTIN (Verified Allergy, Unknown, 10/11/17) OLIVE OIL (Verified Adverse Reaction, Severe, SPASM IN THE COLON, 01/18/14) PREGABALIN (Verified Adverse Reaction, Intermediate, "hypernervous", ) ACETAMINOPHEN (Verified Adverse Reaction, Mild, IRRITABILITY AND ELEVATED BLOOD PRESSURE, 01/18/14) IBUPROFEN (Verified Adverse Reaction, Mild, IRRITABILITY AND ELEVATED BLOOD PRESSURE, 01/18/14) Uncoded Allergies: SSRI (Allergy, Unknown, 10/11/17) All Systems: reviewed and negative except above Subjective No acute o/n events s/p incision and drainage left foot, excisional debridement to the level of muscle left foot, and partial calcanectomy left foot POD#29 SCr stable Awaiting authorization for SNF as pt's Medicare days have run out Pt more compliant with meds now Pt feels depressed and frustrated that he is still here. Seen by psych and mood improving Awake, alert. Denies n/v, d/c, chest pain, SOB, abd pain. Foot pain stable. Objective Last 24 Hour Vital Signs Date Time Temp Pulse Resp B/P (MAP) Pulse Ox O2 Delivery O2 Flow Rate FiO2 11/11/17 04:00 98.0 63 20 136/51 97 98.0 11/11/17 00:00 98.5 64 20 166/55 99 Room Air 98.5 11/10/17 20:45 98.3 78 20 143/75 96 Room Air 98.3 11/10/17 20:00 97.0 62 20 160/71 96 97.0 11/10/17 16:00 97.6 62 20 161/96 98 Room Air 97.6 Intake and Output 11/10/17 11/11/17 19:00 07:00 Intake Total 120 ml 220 ml Output Total 500 ml 650 ml Balance -380 ml -430 ml Intake Oral 120 ml IV Total 220 ml Output Urine Total 500 ml 650 ml # Voids 4 1 Height (Feet): 5 Height (Inches): 8.00 Weight (Pounds): 185 Objective General: alert, cooperative, no distress, appears stated age Head: normocephalic, without obvious abnormality, atraumatic Eyes: conjunctivae/corneas clear. PERRL, EOM's intact Throat: lips, mucosa, and tongue normal. MMM Neck: supple, symmetrical, trachea midline, and no JVD Lungs: clear to auscultation bilaterally Heart: regular rate and rhythm, S1, S2 normal, no murmur, click, rub or gallop Abdomen: soft, non-tender, non-distended, bowel sounds normal Extremities: extremities normal, atraumatic, no cyanosis, 1-2+ pitting edema BLE Pulses: 2+ and symmetric Skin: Left foot dressing c/d/i, Right foot dressing c/d/i Neurologic: grossly normal, no focal deficits Conner Orozco M.D. Nov 11, 2017 13:18
--- NOTE | 2017-11-11 14:05 | General Progress Note ---
Assessment/Plan Problem List: (1) Dementia with behavioral disturbance Assessment & Plan: Dementia with behavior disturbance and agitation. lacks capacity to make decisions lacks capacity to refuse meds PLAN: 1. Continue risperidone 1 mg at bedtime. 2. Continue Remeron 15 at bedtime. 3. Continue to follow and readjust the medications. ICD Codes: F03.91 - Unspecified dementia with behavioral disturbance SNOMED: 4580880155530 Assessment/Plan Dementia with behavior disturbance and agitation. lacks capacity to make decisions lacks capacity to refuse meds PLAN: 1. Continue risperidone 1 mg at bedtime. 2. Continue Remeron 15 at bedtime. 3. Continue to follow and readjust the medications. Subjective Date patient seen: Nov 11, 2017 Neurologic/Psychiatric: Reports: anxiety, depressed Allergies: Coded Allergies: GABAPENTIN (Verified Allergy, Unknown, 10/11/17) OLIVE OIL (Verified Adverse Reaction, Severe, SPASM IN THE COLON, 01/18/14) PREGABALIN (Verified Adverse Reaction, Intermediate, "hypernervous", ) ACETAMINOPHEN (Verified Adverse Reaction, Mild, IRRITABILITY AND ELEVATED BLOOD PRESSURE, 01/18/14) IBUPROFEN (Verified Adverse Reaction, Mild, IRRITABILITY AND ELEVATED BLOOD PRESSURE, 01/18/14) Uncoded Allergies: SSRI (Allergy, Unknown, 10/11/17) Subjective the pt is better and less irritable. forgetful Objective Last 24 Hour Vital Signs Date Time Temp Pulse Resp B/P (MAP) Pulse Ox O2 Delivery O2 Flow Rate FiO2 11/11/17 04:00 98.0 63 20 136/51 97 98.0 11/11/17 00:00 98.5 64 20 166/55 99 Room Air 98.5 11/10/17 20:45 98.3 78 20 143/75 96 Room Air 98.3 11/10/17 20:00 97.0 62 20 160/71 96 97.0 11/10/17 16:00 97.6 62 20 161/96 98 Room Air 97.6 Intake and Output 11/10/17 11/11/17 19:00 07:00 Intake Total 120 ml 220 ml Output Total 500 ml 650 ml Balance -380 ml -430 ml Intake Oral 120 ml IV Total 220 ml Output Urine Total 500 ml 650 ml # Voids 4 1 Height (Feet): 5 Height (Inches): 8.00 Weight (Pounds): 185 General Appearance: no apparent distress, alert Neurologic: oriented x 3, responsive, depressed affect Milton Lancaster M.D. Nov 11, 2017 14:05
[2017-11-11] MEDS: Ertapenem 1gm in NS 55ml IVPB SCH (15:05)
[2017-11-11 16:00] VITALS: BP 134/47
--- NOTE | 2017-11-11 17:21 | Infectious Diseases Prog Note ---
Assessment/Plan Assessment/Plan ASSESSMENT AND PLAN: 1. bacteroides bacteremia, proteus/klebsiella/vre left heel/foot wound infection and osteomyelitis on MRI, sepsis, leukocytosis, ? fungal uti - elevated CK noted, ? secondary to fall vs daptomycin - s/p debridement, debridement as needed per podiatry - leg redness improving, chronic edema - clinically better, podiatry note reviewed - continue wound care per podiatry - f/u labs, ck wnl - sed rate significantly improved - invanz and tygecycline for now, because of elevated ck with daptomycin - abx started on 10/14, plan on 6 week course - day #28/42 - vre colonized 2. Elevated creatinine, chronic renal failure, acute kidney injury, elevated ck , s/p fall, ? rhabdomyolysis 3. Anemia. 4. The patient with history of diabetes. 5. Hypertension. 6. Blood sugar and blood pressure treatment per primary. 7. Benign prostatic hypertrophy. 8. Atherosclerotic cardiovascular disease. 9. Chronic diastolic congestive heart failure. 10. Anemia. 11. Dizziness, headaches, weakness, and fatigue. 12. Allergies, acetaminophen, gabapentin, ibuprofen, Elavil, pregabalin, and selective serotonin reuptake inhibitors. 13. Social history negative. 14. Family history noncontributory. 15. MAR was noted. 16. Case discussed with RN. 17. Continue treatment per primary consultants. 18. Orders were entered. 19. Notes and records noted. Subjective Constitutional: Denies: fever HEENT: Denies: congestion Respiratory: Denies: shortness of breath Cardiovascular: Denies: chest pain, palpitations Gastrointestinal/Abdominal: Denies: nausea, vomiting, diarrhea Genitourinary: Denies: dysuria, hematuria Neurologic: Denies: headache Psychiatric: Reports: depression Skin: Denies: rash Hematologic: Denies: bleeding Musculoskeletal: Denies: pain Allergies: Coded Allergies: GABAPENTIN (Verified Allergy, Unknown, 10/11/17) OLIVE OIL (Verified Adverse Reaction, Severe, SPASM IN THE COLON, 01/18/14) PREGABALIN (Verified Adverse Reaction, Intermediate, "hypernervous", ) ACETAMINOPHEN (Verified Adverse Reaction, Mild, IRRITABILITY AND ELEVATED BLOOD PRESSURE, 01/18/14) IBUPROFEN (Verified Adverse Reaction, Mild, IRRITABILITY AND ELEVATED BLOOD PRESSURE, 01/18/14) Uncoded Allergies: SSRI (Allergy, Unknown, 10/11/17) Objective Vital Signs Last 24 Hour Vital Signs Date Time Temp Pulse Resp B/P (MAP) Pulse Ox O2 Delivery O2 Flow Rate FiO2 11/11/17 16:00 98.5 67 19 134/47 99 Room Air 98.5 11/11/17 14:13 98.0 11/11/17 12:00 98.1 72 20 123/61 99 Room Air 98.1 11/11/17 04:00 98.0 63 20 136/51 97 98.0 11/11/17 00:00 98.5 64 20 166/55 99 Room Air 98.5 11/10/17 20:45 98.3 78 20 143/75 96 Room Air 98.3 11/10/17 20:00 97.0 62 20 160/71 96 97.0 Height (Feet): 5 Height (Inches): 8.00 Weight (Pounds): 185 General Appearance: no acute distress HEENT: normocephalic, atraumatic, anicteric, mucous membranes moist Respiratory/Chest: normal breath sounds, no respiratory distress, no accessory muscle use Cardiovascular: normal rate, regular rhythm, no gallop/murmur, no JVD Abdomen: normal bowel sounds, soft, non tender, no organomegaly, non distended Genitourinary: other - no connolly Extremities: no cyanosis Skin: no rash 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 No acute process otherwise. MRI left foot and ankle - Impression: Positive for progressive osteomyelitis of the posterior calcaneus, since prior study of 08/02/2017 Increasing ulceration of the overlying soft tissues, with possible exposure of the medial aspect of the calcaneal tuberosity. Small amount of gas within the medial soft tissues,. The related open wound or could indicate infection by gas-forming organism Complete tear with retraction of the calcaneal tendon, as described. Fluid in the tibiotalar joint. Probably reactive secondary to the above Diffuse edema of the subcutaneous fat. This could be due to cellulitis or could be related to hemodynamic abnormalities Other findings as noted Findings discussed by phone with Dr. Kanishka at the time of interpretation Microbiology Date/Time Source Procedure Growth Status 10/14/17 08:50 Blood Blood Culture - Final NO GROWTH AFTER 5 DAYS Complete 10/11/17 17:00 Nasal Nares MRSA Culture - Final NO METHICILLIN RESISTANT STAPH AUREUS... Complete 10/30/17 04:15 Urine,Clean Catch Urine Culture - Final Jessie Albicans Complete 10/13/17 19:20 Foot Left Gram Stain - Final Complete 10/13/17 19:20 Aerobic Culture - Final Klebsiella Pneumoniae Proteus Mirabilis Enterococcus Faecium - Vre Complete 10/13/17 19:20 Foot Left Anaerobic Culture - Final NO ANAEROBES ISOLATED Complete Labs Test 11/10/17 06:20 White Blood Count 9.6 K/UL (4.8-10.8) Red Blood Count 3.76 M/UL (4.70-6.10) Hemoglobin 9.5 G/DL (14.2-18.0) Hematocrit 29.1 % (42.0-52.0) Mean Corpuscular Volume 77 FL (80-99) Mean Corpuscular Hemoglobin 25.3 PG (27.0-31.0) Mean Corpuscular Hemoglobin Concent 32.6 G/DL (32.0-36.0) Red Cell Distribution Width 16.4 % (11.6-14.8) Platelet Count 258 K/UL (150-450) Mean Platelet Volume 7.3 FL (6.5-10.1) Neutrophils (%) (Auto) 66.2 % (45.0-75.0) Lymphocytes (%) (Auto) 21.8 % (20.0-45.0) Monocytes (%) (Auto) 6.3 % (1.0-10.0) Eosinophils (%) (Auto) 4.6 % (0.0-3.0) Basophils (%) (Auto) 1.1 % (0.0-2.0) Sodium Level 141 MMOL/L (136-145) Potassium Level 3.9 MMOL/L (3.5-5.1) Chloride Level 106 MMOL/L (98-107) Carbon Dioxide Level 26 MMOL/L (21-32) Anion Gap 9 mmol/L (5-15) Blood Urea Nitrogen 39 mg/dL (7-18) Creatinine 1.5 MG/DL (0.55-1.30) Estimat Glomerular Filtration Rate mL/min (>60) Glucose Level 132 MG/DL (74-106) Calcium Level 7.9 MG/DL (8.5-10.1) Labs Test 11/10/17 06:20 White Blood Count 9.6 K/UL (4.8-10.8) Red Blood Count 3.76 M/UL (4.70-6.10) Hemoglobin 9.5 G/DL (14.2-18.0) Hematocrit 29.1 % (42.0-52.0) Mean Corpuscular Volume 77 FL (80-99) Mean Corpuscular Hemoglobin 25.3 PG (27.0-31.0) Mean Corpuscular Hemoglobin Concent 32.6 G/DL (32.0-36.0) Red Cell Distribution Width 16.4 % (11.6-14.8) Platelet Count 258 K/UL (150-450) Mean Platelet Volume 7.3 FL (6.5-10.1) Neutrophils (%) (Auto) 66.2 % (45.0-75.0) Lymphocytes (%) (Auto) 21.8 % (20.0-45.0) Monocytes (%) (Auto) 6.3 % (1.0-10.0) Eosinophils (%) (Auto) 4.6 % (0.0-3.0) Basophils (%) (Auto) 1.1 % (0.0-2.0) Sodium Level 141 MMOL/L (136-145) Potassium Level 3.9 MMOL/L (3.5-5.1) Chloride Level 106 MMOL/L (98-107) Carbon Dioxide Level 26 MMOL/L (21-32) Anion Gap 9 mmol/L (5-15) Blood Urea Nitrogen 39 mg/dL (7-18) Creatinine 1.5 MG/DL (0.55-1.30) Estimat Glomerular Filtration Rate mL/min (>60) Glucose Level 132 MG/DL (74-106) Calcium Level 7.9 MG/DL (8.5-10.1) Current Medications Medications (Trade) Dose Ordered Sig/Dari Route PRN Reason Start Time Stop Time Status Last Admin Dose Admin Ascorbic Acid (Vitamin C) 500 mg DAILY ORAL 10/25/17 09:00 11/24/17 08:59 11/11/17 10:03 Chlorhexidine Gluconate (Sarah-Hex 2%) 1 applic DAILY@2000 TOPIC 10/31/17 20:00 11/30/17 19:59 11/10/17 20:55 Clotrimazole (Lotrimin) 1 applic EVERY 12 HOURS TOPIC 10/14/17 21:00 11/13/17 20:59 11/11/17 10:05 Diphenhydramine HCl (Benadryl) 25 mg Q6H PRN ORAL Itching 10/22/17 23:45 11/21/17 23:44 11/06/17 06:33 Doxazosin Mesylate (Cardura) 2 mg BID ORAL 11/02/17 18:00 11/15/17 12:59 11/07/17 17:24 Ertapenem 1 gm/ Sodium Chloride 55 ml @ 110 mls/hr Q24H IVPB 11/06/17 16:00 11/25/17 15:59 11/11/17 15:05 Insulin Aspart (NovoLOG) BEFORE MEALS AND HS SUBQ 11/10/17 21:00 12/10/17 20:59 11/11/17 17:17 Insulin Detemir (Levemir) 12 units Q24H SUBQ 10/16/17 18:00 11/15/17 17:59 11/10/17 17:45 Menthol/Methyl Salicylate (Bengay) 1 applic BID TOPIC 10/18/17 20:00 11/17/17 19:59 11/11/17 10:05 Mirtazapine (Remeron) 15 mg BEDTIME ORAL 11/11/17 21:00 12/11/17 20:59 Oxycodone HCl (OxyCONTIN) 10 mg Q8HR ORAL 11/09/17 14:00 11/16/17 13:59 11/11/17 14:13 Oxycodone HCl (Roxicodone) 5 mg Q3H PRN ORAL Breakthrough Pain 11/09/17 12:00 11/16/17 11:59 11/10/17 03:15 Risperidone (RisperDAL) 1 mg BEDTIME ORAL 10/14/17 21:00 11/13/17 20:59 11/08/17 21:36 Sodium Hypochlorite (Dakin's Quarter Strength) 1 applic DAILY TOPIC 10/20/17 09:00 11/19/17 08:59 11/11/17 10:05 Tigecycline 50 mg/ Dextrose 110 ml @ 220 mls/hr Q12HR@0800,2000 IVPB 11/05/17 20:00 11/25/17 19:59 11/11/17 10:02 Vitamin D (Vitamin D) 2,000 intlu DAILY ORAL 10/22/17 09:00 11/21/17 08:59 11/09/17 09:21 LARON HERNANDEZ Nov 11, 2017 17:21
[2017-11-11] MEDS: Levemir Flexpen SUBQ SCH (17:40)
[2017-11-11 20:00] VITALS: BP 155/66
[2017-11-11] MEDS: Dyna-Hex 2% Top Sol 2oz TOPIC SCH (20:42)
--- NOTE | 2017-11-11 22:15 | General Progress Note ---
Assessment/Plan Assessment/Plan #. Anemia due to underlying chronic disease. --> Continue to closely monitor and trend. Hemoglobin goal is above 7 --> anemia workup reviewed. Iron 9, TIBC 127, B12 1791, Folate 41 --> Hemoglobin has been above goal, no prbc needed. --> Anemia is stable. #. Anemia of iron deficiency, potentially secondary to osteomyelitis. --> Monitor closely. Trend cbc. --> On iron supplement. Improved. --> Hemoglobin levels have been stable. #. Anemia due to underlying kidney disease. --> Closely monitor, again improving. #. Leukocytosis, status post debridement, gram-negative jasmyn infection noted. --> Wbc count now WNL after antibiotic treatment. --> Remains on meropenem. Monitor closely. --> Infectious Disease Service following. #. Thrombocytosis, likely reactive process from underlying anemia, closely monitor for improvement. --> Resolved. #. Elevated creatinine, chronic kidney disease. #. Diabetes mellitus, on insulin sliding scale as needed as per primary team. #. Diastolic dysfunction. DC planning for SNF. Patient unable to take care of self at home. #. Encephalopathy. --> Pt unable to take care of self. Refuses to go home. Pending placement in SNF. Subjective Date patient seen: Nov 11, 2017 Constitutional: Denies: no symptoms, chills, diaphoresis, fever, malaise, weakness, other HEENT: Denies: no symptoms, eye pain, blurred vision, tearing, double vision, ear pain, ear discharge, nose pain, nose congestion, throat pain, throat swelling, mouth pain, mouth swelling, other Cardiovascular: Denies: no symptoms, chest pain, edema, irregular heart rate, lightheadedness, palpitations, syncope, other Respiratory: Denies: no symptoms, cough, orthopnea, shortness of breath, SOB with excertion, SOB at rest, sputum, stridor, wheezing, other Gastrointestinal/Abdominal: Denies: no symptoms, abdomen distended, abdominal pain, black stools, tarry stools, blood in stool, constipated, diarrhea, difficulty swallowing, nausea, poor appetite, poor fluid intake, rectal bleeding , vomiting, other Genitourinary: Denies: no symptoms, burning, discharge, frequency, flank pain, hematuria, incontinence, pain, urgency, other Neurologic/Psychiatric: Denies: no symptoms, anxiety, depressed, emotional problems, headache, numbness, paresthesia, pre-existing deficit, seizure, tingling, tremors, weakness, other Hematologic/Lymphatic: Reports: anemia Allergies: Coded Allergies: GABAPENTIN (Verified Allergy, Unknown, 10/11/17) OLIVE OIL (Verified Adverse Reaction, Severe, SPASM IN THE COLON, 01/18/14) PREGABALIN (Verified Adverse Reaction, Intermediate, "hypernervous", ) ACETAMINOPHEN (Verified Adverse Reaction, Mild, IRRITABILITY AND ELEVATED BLOOD PRESSURE, 01/18/14) IBUPROFEN (Verified Adverse Reaction, Mild, IRRITABILITY AND ELEVATED BLOOD PRESSURE, 01/18/14) Uncoded Allergies: SSRI (Allergy, Unknown, 10/11/17) Subjective Confused. More compliant today. Pending placement. Objective Last 24 Hour Vital Signs Date Time Temp Pulse Resp B/P (MAP) Pulse Ox O2 Delivery O2 Flow Rate FiO2 11/11/17 20:00 98.3 77 20 155/66 97 98.3 11/11/17 16:00 98.5 67 19 134/47 99 Room Air 98.5 11/11/17 14:13 98.0 11/11/17 12:00 98.1 72 20 123/61 99 Room Air 98.1 11/11/17 04:00 98.0 63 20 136/51 97 98.0 11/11/17 00:00 98.5 64 20 166/55 99 Room Air 98.5 Intake and Output 11/10/17 11/11/17 19:00 07:00 Intake Total 120 ml 220 ml Output Total 500 ml 650 ml Balance -380 ml -430 ml Intake Oral 120 ml IV Total 220 ml Output Urine Total 500 ml 650 ml # Voids 4 1 Height (Feet): 5 Height (Inches): 8.00 Weight (Pounds): 185 General Appearance: confused Respiratory/Chest: decreased breath sounds Abdomen: soft Giovany Wiggins MD Nov 11, 2017 22:15
[2017-11-12] VITALS: BP 163/60
[2017-11-12 04:00] VITALS: BP 154/52
[2017-11-12] MEDS: oxyCONTIN 10mg tab ORAL SCH ×3 (05:44→21:30)
[2017-11-12] MEDS: NovoLOG Insulin Flexpen SUBQ SCH ×4 (06:30→21:32)
[2017-11-12 08:00] VITALS: BP 148/70
[2017-11-12] MEDS: Ascorbic Acid 500mg tab ORAL SCH (08:59)
[2017-11-12] MEDS: Tigecycline 50 MG in D5W 110 ML IVPB SCH ×2 (08:59→21:29)
[2017-11-12] MEDS: Dakin's 0.125% Soln (Quarter Strength) 16oz TOPIC SCH (08:59)
[2017-11-12] MEDS: Vitamin D 1000 IU Tab ORAL SCH (08:59)
[2017-11-12] MEDS: Doxazosin 1mg Tab ORAL SCH ×2 (09:00→18:00)
[2017-11-12] MEDS: Analgesic Balm 15gm TOPIC SCH ×2 (09:00→18:09)
[2017-11-12] MEDS: oxyCODONE 5mg IR tab ORAL PRN (09:12)
--- NOTE | 2017-11-12 10:53 | Nephrology Progress Note ---
Assessment/Plan Problem List: (1) HTN (hypertension) (2) Diabetes mellitus (3) Ulcer of left heel (4) Renal insufficiency Assessment cr carlos above 3 now gradually lowering Foot ulcer, left left leg cellulitis, left heel ulcer, ? osteo, leukocytosis, lgt Renal insufficiency acute vs chronic Cr lowering now 1.6 Urinary retention: REFUSES NG Anemia UTI Plan no labs IV venofer fluid challenge Avoid Nephrotoxics Keep BP in check monitor renal parameters Anemia henry urine studies flomax start cardura Kidney FAMILIA Unremarkable kidneys. Negative for hydronephrosis Note inability of the patient to void with a bladder volume of 337 mL 2D echo :Left ventricular ejection fraction estimated to be 55-60%. No evidence of left ventricular hypertrophy. Subjective ROS Limited/Unobtainable: No Constitutional: Reports: malaise Objective Objective Last 24 Hour Vital Signs Date Time Temp Pulse Resp B/P (MAP) Pulse Ox O2 Delivery O2 Flow Rate FiO2 11/12/17 08:00 98.1 76 16 148/70 99 Room Air 98.1 11/12/17 04:00 97.9 70 20 154/52 98 Room Air 97.9 11/12/17 00:00 98.2 63 20 163/60 98 98.2 11/11/17 20:00 98.3 77 20 155/66 97 98.3 11/11/17 16:00 98.5 67 19 134/47 99 Room Air 98.5 11/11/17 14:13 98.0 11/11/17 12:00 98.1 72 20 123/61 99 Room Air 98.1 Intake and Output 11/11/17 11/12/17 19:00 07:00 Intake Total 865 ml 470 ml Output Total 400 ml 350 ml Balance 465 ml 120 ml Intake Oral 700 ml 250 ml IV Total 165 ml 220 ml Output Urine Total 400 ml 350 ml # Voids 6 3 Height (Feet): 5 Height (Inches): 8.00 Weight (Pounds): 185 General Appearance: no apparent distress Objective no other changes IHSAN REGALADO Nov 12, 2017 10:53
[2017-11-12 12:00] VITALS: BP 127/86
[2017-11-12 16:00] VITALS: BP 131/81
--- NOTE | 2017-11-12 16:10 | General Progress Note ---
Assessment/Plan Problem List: (1) Gram-negative bacteremia Assessment & Plan: Bacterioides fragilis bacteremia ICD Codes: R78.81 - Bacteremia SNOMED: 385460438671 (2) Sepsis ICD Codes: A41.9 - Sepsis, unspecified organism SNOMED: 32741756 (3) Progressive osteomyelitis of the posterior calcaneus (4) Cellulitis of left lower extremity ICD Codes: L03.116 - Cellulitis of left lower limb SNOMED: 980568772 (5) L heel diabetic ulcer with concern for osteomyelitis (6) Complete tear with retraction of the calcaneal tendon (7) MISHEL on CKD (8) CKD stage 3 (9) DM2 (diabetes mellitus, type 2) Assessment & Plan: A1C 9.9 ICD Codes: E11.9 - Type 2 diabetes mellitus without complications SNOMED: 01647992 (10) HTN (hypertension) ICD Codes: I10 - Essential (primary) hypertension SNOMED: 15267827 (11) Diabetic neuropathy ICD Codes: E11.40 - Type 2 diabetes mellitus with diabetic neuropathy, unspecified SNOMED: 64283324, 299056218, 523433582 (12) Diabetic nephropathy ICD Codes: E11.21 - Type 2 diabetes mellitus with diabetic nephropathy SNOMED: 77284316, 697277348 Qualifiers: Qualified Codes: E11.21 - Type 2 diabetes mellitus with diabetic nephropathy (13) Hyponatremia ICD Codes: E87.1 - Hypo-osmolality and hyponatremia SNOMED: 76359998 (14) Chronic diabetic ulcer right foot (15) Medical non-compliance ICD Codes: Z91.19 - Patient's noncompliance with other medical treatment and regimen SNOMED: 697938649 (16) Acute on chronic diastolic (congestive) heart failure ICD Codes: I50.33 - Acute on chronic diastolic (congestive) heart failure SNOMED: 27737763, 043946884 (17) fall with head trauma Status: stable Assessment/Plan Podiatry, ID, renal consulted s/p vanco (10/11-10/16) Cont ertapenem + tigecycline per ID Will need total of 6 weeks of IV abx per ID given osteomyelitis - currently day #29 Daptomycin was d/c'd on 10/30 given elevated CK level s/p cefepime and flagyl (10/11-10/14) F/u cultures--blood culture showing GNR, wound culture showing Klebsiella and Proteus F/u repeat blood cultures--ngtd PICC line placed 10/17/17 Wound care per podiatry Check MRI L foot--shows progressive osteomyelitis, heel ulceration, soft tissue gas, complete tear of Achilles tendon s/p incision and drainage left foot, excisional debridement to the level of muscle left foot, and partial calcanectomy left foot on 10/13/17 NWB LLE Off wound vac now per podiatry Check renal U/S--shows bladder volume 337mL, refused connolly Flomax 0.4mg BID + finasteride 5mg daily Check TTE--EF 55-60% Pain control, bowel regimen Supportive care Appreciate psych consult Cont SNF meds ZENIA DC once authorization for SNF obtained Pt unable to go home as he lives alone, 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 Disposition: Once the patient is stable to leave the hospital, I anticipate the patient will likely be discharged to the following environment: back to SNF Discussed with patient/family, nursing staff, SW/CM, podiatry, ID regarding clinical status, treatment course, and disposition planning. D/w ID re abx on d/ c. D/w podiatry re wound care, d/c plan. D/w CM re dispo Time of note may not reflect time of encounter Subjective Date patient seen: Nov 12, 2017 Time patient seen: 16:10 ROS Limited/Unobtainable: No Constitutional: Reports: no symptoms HEENT: Reports: no symptoms Cardiovascular: Reports: no symptoms Respiratory: Reports: no symptoms Gastrointestinal/Abdominal: Reports: no symptoms Genitourinary: Reports: no symptoms Neurologic/Psychiatric: Reports: no symptoms Endocrine: Reports: no symptoms Hematologic/Lymphatic: Reports: no symptoms Allergies: Coded Allergies: GABAPENTIN (Verified Allergy, Unknown, 10/11/17) OLIVE OIL (Verified Adverse Reaction, Severe, SPASM IN THE COLON, 01/18/14) PREGABALIN (Verified Adverse Reaction, Intermediate, "hypernervous", ) ACETAMINOPHEN (Verified Adverse Reaction, Mild, IRRITABILITY AND ELEVATED BLOOD PRESSURE, 01/18/14) IBUPROFEN (Verified Adverse Reaction, Mild, IRRITABILITY AND ELEVATED BLOOD PRESSURE, 01/18/14) Uncoded Allergies: SSRI (Allergy, Unknown, 10/11/17) Subjective No acute o/n events s/p incision and drainage left foot, excisional debridement to the level of muscle left foot, and partial calcanectomy left foot POD#30 SCr stable Awaiting authorization for SNF as pt's Medicare days have run out Pt more compliant with meds now Pt feels depressed and frustrated that he is still here. Seen by psych and mood improving Awake, alert. Denies n/v, d/c, chest pain, SOB, abd pain. Foot pain stable. Objective Last 24 Hour Vital Signs Date Time Temp Pulse Resp B/P (MAP) Pulse Ox O2 Delivery O2 Flow Rate FiO2 11/12/17 14:24 97.9 11/12/17 12:00 97.9 72 18 127/86 95 Room Air 97.9 11/12/17 08:00 98.1 76 16 148/70 99 Room Air 98.1 11/12/17 04:00 97.9 70 20 154/52 98 Room Air 97.9 11/12/17 00:00 98.2 63 20 163/60 98 98.2 11/11/17 20:00 98.3 77 20 155/66 97 98.3 Intake and Output 11/11/17 11/12/17 19:00 07:00 Intake Total 865 ml 470 ml Output Total 400 ml 350 ml Balance 465 ml 120 ml Intake Oral 700 ml 250 ml IV Total 165 ml 220 ml Output Urine Total 400 ml 350 ml # Voids 6 3 Height (Feet): 5 Height (Inches): 8.00 Weight (Pounds): 185 Objective General: alert, cooperative, no distress, appears stated age Head: normocephalic, without obvious abnormality, atraumatic Eyes: conjunctivae/corneas clear. PERRL, EOM's intact Throat: lips, mucosa, and tongue normal. MMM Neck: supple, symmetrical, trachea midline, and no JVD Lungs: clear to auscultation bilaterally Heart: regular rate and rhythm, S1, S2 normal, no murmur, click, rub or gallop Abdomen: soft, non-tender, non-distended, bowel sounds normal Extremities: extremities normal, atraumatic, no cyanosis, 1-2+ pitting edema BLE Pulses: 2+ and symmetric Skin: Left foot dressing c/d/i, Right foot dressing c/d/i Neurologic: grossly normal, no focal deficits Conner Orozco M.D. Nov 12, 2017 16:10
[2017-11-12] MEDS: Ertapenem 1gm in NS 55ml IVPB SCH (17:08)
[2017-11-12] MEDS: Levemir Flexpen SUBQ SCH (18:07)
[2017-11-12 20:00] VITALS: BP 138/68
[2017-11-12] MEDS: Dyna-Hex 2% Top Sol 2oz TOPIC SCH (21:30)
[2017-11-13] VITALS: BP 147/63
--- NOTE | 2017-11-13 00:41 | General Progress Note ---
Assessment/Plan Assessment/Plan #. Anemia due to underlying chronic disease. --> Continue to closely monitor and trend. Hemoglobin goal is above 7 --> anemia workup reviewed. Iron 9, TIBC 127, B12 1791, Folate 41 --> Hemoglobin has been above goal, no prbc needed. --> Anemia is stable. --> No recent cbc #. Anemia of iron deficiency, potentially secondary to osteomyelitis. --> Monitor closely. Trend cbc. --> On iron supplement. Improved. --> Hemoglobin levels have been stable. #. Anemia due to underlying kidney disease. --> Closely monitor, again improving. #. Leukocytosis, status post debridement, gram-negative jasmyn infection noted. --> Wbc count now WNL after antibiotic treatment. --> Remains on meropenem. Monitor closely. --> Infectious Disease Service following. #. Thrombocytosis, likely reactive process from underlying anemia, closely monitor for improvement. --> Resolved. #. Elevated creatinine, chronic kidney disease. #. Diabetes mellitus, on insulin sliding scale as needed as per primary team. #. Diastolic dysfunction. DC planning for SNF. Patient unable to take care of self at home. #. Encephalopathy. --> Pt unable to take care of self. Refuses to go home. Pending placement in SNF. Subjective Date patient seen: Nov 12, 2017 Constitutional: Denies: no symptoms, chills, diaphoresis, fever, malaise, weakness, other HEENT: Denies: no symptoms, eye pain, blurred vision, tearing, double vision, ear pain, ear discharge, nose pain, nose congestion, throat pain, throat swelling, mouth pain, mouth swelling, other Cardiovascular: Denies: no symptoms, chest pain, edema, irregular heart rate, lightheadedness, palpitations, syncope, other Respiratory: Denies: no symptoms, cough, orthopnea, shortness of breath, SOB with excertion, SOB at rest, sputum, stridor, wheezing, other Gastrointestinal/Abdominal: Denies: no symptoms, abdomen distended, abdominal pain, black stools, tarry stools, blood in stool, constipated, diarrhea, difficulty swallowing, nausea, poor appetite, poor fluid intake, rectal bleeding , vomiting, other Genitourinary: Denies: no symptoms, burning, discharge, frequency, flank pain, hematuria, incontinence, pain, urgency, other Neurologic/Psychiatric: Denies: no symptoms, anxiety, depressed, emotional problems, headache, numbness, paresthesia, pre-existing deficit, seizure, tingling, tremors, weakness, other Hematologic/Lymphatic: Reports: anemia Allergies: Coded Allergies: GABAPENTIN (Verified Allergy, Unknown, 10/11/17) OLIVE OIL (Verified Adverse Reaction, Severe, SPASM IN THE COLON, 01/18/14) PREGABALIN (Verified Adverse Reaction, Intermediate, "hypernervous", ) ACETAMINOPHEN (Verified Adverse Reaction, Mild, IRRITABILITY AND ELEVATED BLOOD PRESSURE, 01/18/14) IBUPROFEN (Verified Adverse Reaction, Mild, IRRITABILITY AND ELEVATED BLOOD PRESSURE, 01/18/14) Uncoded Allergies: SSRI (Allergy, Unknown, 10/11/17) Subjective No new events overnight. Confused. Agitated. Objective Last 24 Hour Vital Signs Date Time Temp Pulse Resp B/P (MAP) Pulse Ox O2 Delivery O2 Flow Rate FiO2 11/12/17 20:00 98.0 69 20 138/68 98 98.0 11/12/17 16:00 98.8 86 19 131/81 95 Room Air 98.8 11/12/17 14:24 97.9 11/12/17 12:00 97.9 72 18 127/86 95 Room Air 97.9 11/12/17 08:00 98.1 76 16 148/70 99 Room Air 98.1 11/12/17 04:00 97.9 70 20 154/52 98 Room Air 97.9 Intake and Output 11/12/17 11/13/17 19:00 07:00 Intake Total 1125 ml Output Total 550 ml Balance 575 ml IV Total 165 ml Other 960 ml Output Urine Total 550 ml # Voids 3 Height (Feet): 5 Height (Inches): 8.00 Weight (Pounds): 185 General Appearance: confused, agitated Respiratory/Chest: decreased breath sounds Abdomen: soft Giovany Wiggins MD Nov 13, 2017 00:41
[2017-11-13 04:00] VITALS: BP 141/54
[2017-11-13] MEDS: oxyCONTIN 10mg tab ORAL SCH ×4 (05:40→20:56)
[2017-11-13] MEDS: NovoLOG Insulin Flexpen SUBQ SCH ×4 (06:19→20:57)
[2017-11-13 06:47] LABS: HEMATOCRIT 24.1 % (42.0-52.0); HEMOGLOBIN 7.8 G/DL (14.2-18.0); MEAN CORPUSCULAR VOLUME 77 FL (80-99); PLATELET COUNT 225 K/UL (150-450); RED BLOOD COUNT 3.15 M/UL (4.70-6.10); RED CELL DISTRIBUTION WIDTH 16.8 % (11.6-14.8); WHITE BLOOD COUNT 7.1 K/UL (4.8-10.8)
[2017-11-13 07:05] LABS: ALANINE AMINOTRANSFERASE 22 U/L (12-78); ALBUMIN/GLOBULIN RATIO 0.6 (1.0-2.7); ALKALINE PHOSPHATASE 126 U/L (46-116); ANION GAP 6 mmol/L (5-15); ASPARTATE AMINO TRANSFERASE 32 U/L (15-37); BILIRUBIN,TOTAL 0.6 MG/DL (0.2-1.0); BLOOD UREA NITROGEN 32 mg/dL (7-18); CALCIUM 6.5 MG/DL (8.5-10.1); CARBON DIOXIDE 27 MMOL/L (21-32); CHLORIDE 111 MMOL/L (98-107); CREATININE 1.3 MG/DL (0.55-1.30); PHOSPHORUS 2.4 MG/DL (2.5-4.9); POTASSIUM 3.5 MMOL/L (3.5-5.1); SODIUM 143 MMOL/L (136-145)
[2017-11-13 08:00] VITALS: BP 140/62
[2017-11-13] MEDS: Tigecycline 50 MG in D5W 110 ML IVPB SCH ×2 (08:27→20:55)
[2017-11-13] MEDS: Analgesic Balm 15gm TOPIC SCH ×2 (08:27→18:17)
[2017-11-13] MEDS: Dakin's 0.125% Soln (Quarter Strength) 16oz TOPIC SCH (08:27)
[2017-11-13] MEDS: Vitamin D 1000 IU Tab ORAL SCH (08:28)
[2017-11-13] MEDS: Doxazosin 1mg Tab ORAL SCH ×4 (08:28→20:57)
[2017-11-13] MEDS: Ascorbic Acid 500mg tab ORAL SCH (08:28)
[2017-11-13 12:04] VITALS: BP 147/60
--- NOTE | 2017-11-13 13:53 | Nephrology Progress Note ---
Assessment/Plan Problem List: (1) HTN (hypertension) (2) Diabetes mellitus (3) Ulcer of left heel (4) Renal insufficiency Assessment cr carlos above 3 now gradually lowering Foot ulcer, left left leg cellulitis, left heel ulcer, ? osteo, leukocytosis, lgt Renal insufficiency acute vs chronic Cr lowering now 1.6 Urinary retention: REFUSES NG Anemia UTI Plan mag and Phos and K supp as needed IV venofer PO Vit D Avoid Nephrotoxics Keep BP in check monitor renal parameters Anemia henry urine studies flomax start cardura [facility] Unremarkable kidneys. Negative for hydronephrosis Note inability of the patient to void with a bladder volume of 337 mL 2D echo :Left ventricular ejection fraction estimated to be 55-60%. No evidence of left ventricular hypertrophy. Subjective ROS Limited/Unobtainable: No Constitutional: Reports: malaise, weakness Objective Objective Last 24 Hour Vital Signs Date Time Temp Pulse Resp B/P (MAP) Pulse Ox O2 Delivery O2 Flow Rate FiO2 11/13/17 12:04 97.7 62 21 147/60 99 Room Air 97.7 11/13/17 08:00 97.9 81 19 140/62 97 Room Air 97.9 11/13/17 04:00 97.7 62 20 141/54 100 97.7 11/13/17 00:00 97.8 63 20 147/63 97 97.8 11/12/17 20:00 98.0 69 20 138/68 98 98.0 11/12/17 16:00 98.8 86 19 131/81 95 Room Air 98.8 11/12/17 14:24 97.9 Intake and Output 11/12/17 11/13/17 19:00 07:00 Intake Total 1125 ml 460 ml Output Total 550 ml 550 ml Balance 575 ml -90 ml Intake Oral 350 ml IV Total 165 ml 110 ml Other 960 ml Output Urine Total 550 ml 550 ml # Voids 3 4 # Bowel Movements 1 Laboratory Tests 11/13/17 06:10: White Blood Count 7.1, Red Blood Count 3.15L, Hemoglobin 7.8L, Hematocrit 24.1L , Mean Corpuscular Volume 77L, Mean Corpuscular Hemoglobin 24.9L, Mean Corpuscular Hemoglobin Concent 32.5, Red Cell Distribution Width 16.8H, Platelet Count 225, Mean Platelet Volume 8.7, Neutrophils (%) (Auto) , Lymphocytes (%) (Auto) , Monocytes (%) (Auto) , Eosinophils (%) (Auto) , Basophils (%) (Auto) , Differential Total Cells Counted 100, Neutrophils % ( Manual) 62, Lymphocytes % (Manual) 24, Monocytes % (Manual) 5, Eosinophils % ( Manual) 9H, Basophils % (Manual) 0, Band Neutrophils 0, Platelet Estimate Adequate, Platelet Morphology Normal, Hypochromasia 1+, Anisocytosis 1+, Sodium Level 143, Potassium Level 3.5, Chloride Level 111H, Carbon Dioxide Level 27, Anion Gap 6, Blood Urea Nitrogen 32H, Creatinine 1.3, Estimat Glomerular Filtration Rate , Glucose Level 61L, Uric Acid 5.7, Calcium Level 6.5L, Phosphorus Level 2.4L, Magnesium Level 1.5L, Total Bilirubin 0.6, Aspartate Amino Transf (AST/SGOT) 32, Alanine Aminotransferase (ALT/SGPT) 22, Alkaline Phosphatase 126H, C-Reactive Protein, Quantitative 1.8H, Pro-B-Type Natriuretic Peptide 1122H, Total Protein 5.4L, Albumin 2.0L, Globulin 3.4, Albumin/Globulin Ratio 0.6L Height (Feet): 5 Height (Inches): 8.00 Weight (Pounds): 185 General Appearance: no apparent distress Cardiovascular: normal rate Respiratory/Chest: decreased breath sounds Abdomen: soft Objective no other changes IHSAN REGALADO Nov 13, 2017 13:53
[2017-11-13] MEDS ORDERED: Vitamin D 50,000 units cap ORAL SCH (15:00)
--- NOTE | 2017-11-13 15:05 | Infectious Diseases Prog Note ---
Assessment/Plan Assessment/Plan ASSESSMENT AND PLAN: 1. bacteroides bacteremia, proteus/klebsiella/vre left heel/foot wound infection and osteomyelitis on MRI, sepsis, leukocytosis, ? fungal uti - elevated CK noted, ? secondary daptomycin, now wnl off daptomycin - s/p debridement, debridement as needed per podiatry - leg redness improving, chronic edema - clinically better, podiatry note reviewed - continue wound care per podiatry - f/u labs, ck wnl - sed rate significantly improved - invanz and tygecycline for now because of elevated ck with daptomycin - abx started on 10/14, plan on 6 week course - day #30/42 - vre colonized 2. Elevated creatinine, chronic renal failure, acute kidney injury, elevated ck , s/p fall, ? rhabdomyolysis 3. Anemia. 4. The patient with history of diabetes. 5. Hypertension. 6. Blood sugar and blood pressure treatment per primary. 7. Benign prostatic hypertrophy. 8. Atherosclerotic cardiovascular disease. 9. Chronic diastolic congestive heart failure. 10. Anemia. 11. Dizziness, headaches, weakness, and fatigue. 12. Allergies, acetaminophen, gabapentin, ibuprofen, Elavil, pregabalin, and selective serotonin reuptake inhibitors. 13. Social history negative. 14. Family history noncontributory. 15. MAR was noted. 16. Case discussed with RN. 17. Continue treatment per primary consultants. 18. Orders were entered. 19. Notes and records noted. Subjective Constitutional: Reports: fatigue; Denies: fever, chills HEENT: Denies: congestion Respiratory: Denies: shortness of breath Cardiovascular: Denies: chest pain Gastrointestinal/Abdominal: Denies: nausea, vomiting, diarrhea Genitourinary: Denies: dysuria Neurologic: Denies: headache Psychiatric: Reports: depression - less Skin: Denies: rash Hematologic: Denies: bleeding Musculoskeletal: Denies: pain Allergies: Coded Allergies: GABAPENTIN (Verified Allergy, Unknown, 10/11/17) OLIVE OIL (Verified Adverse Reaction, Severe, SPASM IN THE COLON, 01/18/14) PREGABALIN (Verified Adverse Reaction, Intermediate, "hypernervous", ) ACETAMINOPHEN (Verified Adverse Reaction, Mild, IRRITABILITY AND ELEVATED BLOOD PRESSURE, 01/18/14) IBUPROFEN (Verified Adverse Reaction, Mild, IRRITABILITY AND ELEVATED BLOOD PRESSURE, 01/18/14) Uncoded Allergies: SSRI (Allergy, Unknown, 10/11/17) Objective Vital Signs Last 24 Hour Vital Signs Date Time Temp Pulse Resp B/P (MAP) Pulse Ox O2 Delivery O2 Flow Rate FiO2 11/13/17 12:04 97.7 62 21 147/60 99 Room Air 97.7 11/13/17 08:00 97.9 81 19 140/62 97 Room Air 97.9 11/13/17 04:00 97.7 62 20 141/54 100 97.7 11/13/17 00:00 97.8 63 20 147/63 97 97.8 11/12/17 20:00 98.0 69 20 138/68 98 98.0 11/12/17 16:00 98.8 86 19 131/81 95 Room Air 98.8 Height (Feet): 5 Height (Inches): 8.00 Weight (Pounds): 185 General Appearance: no acute distress HEENT: normocephalic, atraumatic, anicteric, mucous membranes moist Respiratory/Chest: lungs clear, normal breath sounds, no respiratory distress, no accessory muscle use Cardiovascular: normal rate, regular rhythm, no gallop/murmur, no JVD Abdomen: normal bowel sounds, soft, non tender, no organomegaly, non distended Genitourinary: other - no connolly Extremities: other - left foot covered, some left leg swelling noted Skin: no rash 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 No acute process otherwise. MRI left foot and ankle - Impression: Positive for progressive osteomyelitis of the posterior calcaneus, since prior study of 08/02/2017 Increasing ulceration of the overlying soft tissues, with possible exposure of the medial aspect of the calcaneal tuberosity. Small amount of gas within the medial soft tissues,. The related open wound or could indicate infection by gas-forming organism Complete tear with retraction of the calcaneal tendon, as described. Fluid in the tibiotalar joint. Probably reactive secondary to the above Diffuse edema of the subcutaneous fat. This could be due to cellulitis or could be related to hemodynamic abnormalities Other findings as noted Findings discussed by phone with Dr. Prieto at the time of interpretation Microbiology Date/Time Source Procedure Growth Status 10/14/17 08:50 Blood Blood Culture - Final NO GROWTH AFTER 5 DAYS Complete 10/11/17 17:00 Nasal Nares MRSA Culture - Final NO METHICILLIN RESISTANT STAPH AUREUS... Complete 10/30/17 04:15 Urine,Clean Catch Urine Culture - Final Jessie Albicans Complete 10/13/17 19:20 Foot Left Gram Stain - Final Complete 10/13/17 19:20 Aerobic Culture - Final Klebsiella Pneumoniae Proteus Mirabilis Enterococcus Faecium - Vre Complete 10/13/17 19:20 Foot Left Anaerobic Culture - Final NO ANAEROBES ISOLATED Complete Laboratory Tests Test 11/13/17 06:10 White Blood Count 7.1 K/UL (4.8-10.8) Red Blood Count 3.15 M/UL (4.70-6.10) L Hemoglobin 7.8 G/DL (14.2-18.0) L Hematocrit 24.1 % (42.0-52.0) L Mean Corpuscular Volume 77 FL (80-99) L Mean Corpuscular Hemoglobin 24.9 PG (27.0-31.0) L Mean Corpuscular Hemoglobin Concent 32.5 G/DL (32.0-36.0) Red Cell Distribution Width 16.8 % (11.6-14.8) H Platelet Count 225 K/UL (150-450) Mean Platelet Volume 8.7 FL (6.5-10.1) Neutrophils (%) (Auto) % (45.0-75.0) Lymphocytes (%) (Auto) % (20.0-45.0) Monocytes (%) (Auto) % (1.0-10.0) Eosinophils (%) (Auto) % (0.0-3.0) Basophils (%) (Auto) % (0.0-2.0) Differential Total Cells Counted 100 Neutrophils % (Manual) 62 % (45-75) Lymphocytes % (Manual) 24 % (20-45) Monocytes % (Manual) 5 % (1-10) Eosinophils % (Manual) 9 % (0-3) H Basophils % (Manual) 0 % (0-2) Band Neutrophils 0 % (0-8) Platelet Estimate Adequate Platelet Morphology Normal Hypochromasia 1+ Anisocytosis 1+ Sodium Level 143 MMOL/L (136-145) Potassium Level 3.5 MMOL/L (3.5-5.1) Chloride Level 111 MMOL/L (98-107) H Carbon Dioxide Level 27 MMOL/L (21-32) Anion Gap 6 mmol/L (5-15) Blood Urea Nitrogen 32 mg/dL (7-18) H Creatinine 1.3 MG/DL (0.55-1.30) Estimat Glomerular Filtration Rate mL/min (>60) Glucose Level 61 MG/DL (74-106) L Uric Acid 5.7 MG/DL (2.6-7.2) Calcium Level 6.5 MG/DL (8.5-10.1) L Phosphorus Level 2.4 MG/DL (2.5-4.9) L Magnesium Level 1.5 MG/DL (1.8-2.4) L Total Bilirubin 0.6 MG/DL (0.2-1.0) Aspartate Amino Transf (AST/SGOT) 32 U/L (15-37) Alanine Aminotransferase (ALT/SGPT) 22 U/L (12-78) Alkaline Phosphatase 126 U/L (46-116) H C-Reactive Protein, Quantitative 1.8 mg/dL (0.00-0.90) H Pro-B-Type Natriuretic Peptide 1122 pg/mL (0-125) H Total Protein 5.4 G/DL (6.4-8.2) L Albumin 2.0 G/DL (3.4-5.0) L Globulin 3.4 g/dL Albumin/Globulin Ratio 0.6 (1.0-2.7) L Current Medications Medications (Trade) Dose Ordered Sig/Dari Route PRN Reason Start Time Stop Time Status Last Admin Dose Admin Ascorbic Acid (Vitamin C) 500 mg DAILY ORAL 10/25/17 09:00 11/24/17 08:59 11/13/17 08:28 Chlorhexidine Gluconate (Sarah-Hex 2%) 1 applic DAILY@1999 TOPIC 10/31/17 20:00 11/30/17 19:59 11/12/17 21:30 Clotrimazole (Lotrimin) 1 applic EVERY 12 HOURS TOPIC 10/14/17 21:00 11/13/17 20:59 11/13/17 08:29 Diphenhydramine HCl (Benadryl) 25 mg Q6H PRN ORAL Itching 10/22/17 23:45 11/21/17 23:44 11/12/17 21:30 Doxazosin Mesylate (Cardura) 2 mg BID ORAL 11/02/17 18:00 11/15/17 12:59 11/07/17 17:24 Ergocalciferol (Drisdol) 50,000 intlu QWEEK ORAL 11/13/17 15:00 12/13/17 14:59 Ertapenem 1 gm/ Sodium Chloride 55 ml @ 110 mls/hr Q24H IVPB 11/06/17 16:00 11/25/17 15:59 11/12/17 17:08 Insulin Aspart (NovoLOG) BEFORE MEALS AND HS SUBQ 11/10/17 21:00 12/10/17 20:59 11/12/17 21:32 Insulin Detemir (Levemir) 12 units Q24H SUBQ 10/16/17 18:00 11/15/17 17:59 11/12/17 18:07 Magnesium Sulfate 100 ml @ 100 mls/hr Q1H IVPB 11/13/17 15:00 11/13/17 18:59 11/13/17 14:56 Menthol/Methyl Salicylate (Bengay) 1 applic BID TOPIC 10/18/17 20:00 11/17/17 19:59 11/13/17 08:27 Mirtazapine (Remeron) 15 mg BEDTIME ORAL 11/11/17 21:00 12/11/17 20:59 11/12/17 21:30 Oxycodone HCl (OxyCONTIN) 10 mg Q8HR ORAL 11/09/17 14:00 11/16/17 13:59 11/13/17 14:56 Oxycodone HCl (Roxicodone) 5 mg Q3H PRN ORAL Breakthrough Pain 11/09/17 12:00 11/16/17 11:59 11/12/17 09:12 Potassium Phosphate 20 mm/ Sodium Chloride 281.6667 ml @ 46.944 m... ONCE ONCE IV 11/13/17 18:00 11/13/17 23:59 Risperidone (RisperDAL) 1 mg BEDTIME ORAL 10/14/17 21:00 11/13/17 20:59 11/12/17 21:30 Sodium Hypochlorite (Dakin's Quarter Strength) 1 applic DAILY TOPIC 10/20/17 09:00 11/19/17 08:59 11/13/17 08:27 Tigecycline 50 mg/ Dextrose 110 ml @ 220 mls/hr Q12HR@0800,2000 IVPB 11/05/17 20:00 11/25/17 19:59 11/13/17 08:27 Vitamin D (Vitamin D) 2,000 intlu DAILY ORAL 10/22/17 09:00 11/21/17 08:59 11/13/17 08:28 LARON HERNANDEZ Nov 13, 2017 15:05
[2017-11-13 16:05] VITALS: BP 140/57
[2017-11-13] MEDS: Ertapenem 1gm in NS 55ml IVPB SCH (16:21)
[2017-11-13] MEDS ORDERED: Potassium Phosphate 20 MM in NS 275 ML IV ONE (18:00)
[2017-11-13] MEDS: Levemir Flexpen SUBQ SCH (18:29)
[2017-11-13 20:00] VITALS: BP 165/91
[2017-11-13] MEDS: Dyna-Hex 2% Top Sol 2oz TOPIC SCH (20:00)
--- NOTE | 2017-11-13 22:34 | General Progress Note ---
Assessment/Plan Problem List: (1) Gram-negative bacteremia Assessment & Plan: Bacterioides fragilis bacteremia ICD Codes: R78.81 - Bacteremia SNOMED: 654515469209 (2) Sepsis ICD Codes: A41.9 - Sepsis, unspecified organism SNOMED: 03642379 (3) Progressive osteomyelitis of the posterior calcaneus (4) Cellulitis of left lower extremity ICD Codes: L03.116 - Cellulitis of left lower limb SNOMED: 070803910 (5) L heel diabetic ulcer with concern for osteomyelitis (6) Complete tear with retraction of the calcaneal tendon (7) MISHEL on CKD (8) CKD stage 3 (9) DM2 (diabetes mellitus, type 2) Assessment & Plan: A1C 9.9 ICD Codes: E11.9 - Type 2 diabetes mellitus without complications SNOMED: 26580069 (10) HTN (hypertension) ICD Codes: I10 - Essential (primary) hypertension SNOMED: 69478642 (11) Diabetic neuropathy ICD Codes: E11.40 - Type 2 diabetes mellitus with diabetic neuropathy, unspecified SNOMED: 14860998, 648686436, 620736592 (12) Diabetic nephropathy ICD Codes: E11.21 - Type 2 diabetes mellitus with diabetic nephropathy SNOMED: 45010943, 698744622 Qualifiers: Qualified Codes: E11.21 - Type 2 diabetes mellitus with diabetic nephropathy (13) Hyponatremia ICD Codes: E87.1 - Hypo-osmolality and hyponatremia SNOMED: 20039922 (14) Chronic diabetic ulcer right foot (15) Medical non-compliance ICD Codes: Z91.19 - Patient's noncompliance with other medical treatment and regimen SNOMED: 266813289 (16) Acute on chronic diastolic (congestive) heart failure ICD Codes: I50.33 - Acute on chronic diastolic (congestive) heart failure SNOMED: 01854340, 227485015 (17) fall with head trauma Status: stable Assessment/Plan Podiatry, ID, renal consulted s/p vanco (10/11-10/16) Cont ertapenem + tigecycline per ID Will need total of 6 weeks of IV abx per ID given osteomyelitis - currently day #30/42 Daptomycin was d/c'd on 10/30 given elevated CK level s/p cefepime and flagyl (10/11-10/14) F/u cultures--blood culture showing GNR, wound culture showing Klebsiella and Proteus F/u repeat blood cultures--ngtd PICC line placed 10/17/17 Wound care per podiatry Check MRI L foot--shows progressive osteomyelitis, heel ulceration, soft tissue gas, complete tear of Achilles tendon s/p incision and drainage left foot, excisional debridement to the level of muscle left foot, and partial calcanectomy left foot on 10/13/17 NWB LLE Off wound vac now per podiatry Check renal U/S--shows bladder volume 337mL, refused connolly Flomax 0.4mg BID + finasteride 5mg daily Check TTE--EF 55-60% Pain control, bowel regimen Supportive care Appreciate psych consult Cont SNF meds ZENIA DC once authorization for SNF obtained Pt unable to go home as he lives alone, 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 Disposition: Once the patient is stable to leave the hospital, I anticipate the patient will likely be discharged to the following environment: back to SNF Discussed with patient/family, nursing staff, SW/CM, podiatry, ID regarding clinical status, treatment course, and disposition planning. D/w ID re abx on d/ c. D/w podiatry re wound care, d/c plan. D/w CM re dispo Time of note may not reflect time of encounter Subjective Date patient seen: Nov 13, 2017 Time patient seen: 13:00 ROS Limited/Unobtainable: No Constitutional: Reports: no symptoms HEENT: Reports: no symptoms Cardiovascular: Reports: no symptoms Respiratory: Reports: no symptoms Gastrointestinal/Abdominal: Reports: no symptoms Genitourinary: Reports: no symptoms Neurologic/Psychiatric: Reports: no symptoms Endocrine: Reports: no symptoms Hematologic/Lymphatic: Reports: no symptoms Allergies: Coded Allergies: GABAPENTIN (Verified Allergy, Unknown, 10/11/17) OLIVE OIL (Verified Adverse Reaction, Severe, SPASM IN THE COLON, 01/18/14) PREGABALIN (Verified Adverse Reaction, Intermediate, "hypernervous", ) ACETAMINOPHEN (Verified Adverse Reaction, Mild, IRRITABILITY AND ELEVATED BLOOD PRESSURE, 01/18/14) IBUPROFEN (Verified Adverse Reaction, Mild, IRRITABILITY AND ELEVATED BLOOD PRESSURE, 01/18/14) Uncoded Allergies: SSRI (Allergy, Unknown, 10/11/17) Subjective No acute o/n events s/p incision and drainage left foot, excisional debridement to the level of muscle left foot, and partial calcanectomy left foot POD#31 SCr stable Awaiting authorization for SNF as pt's Medicare days have run out Pt more compliant with meds now Pt feels depressed and frustrated that he is still here. Seen by psych and mood improving Awake, alert. Denies n/v, d/c, chest pain, SOB, abd pain. Foot pain stable. Objective Last 24 Hour Vital Signs Date Time Temp Pulse Resp B/P (MAP) Pulse Ox O2 Delivery O2 Flow Rate FiO2 11/13/17 20:00 99.4 72 20 165/91 98 99.4 11/13/17 16:05 97.4 68 21 140/57 99 Room Air 97.4 11/13/17 12:04 97.7 62 21 147/60 99 Room Air 97.7 11/13/17 08:00 97.9 81 19 140/62 97 Room Air 97.9 11/13/17 04:00 97.7 62 20 141/54 100 97.7 11/13/17 00:00 97.8 63 20 147/63 97 97.8 Intake and Output 11/12/17 11/13/17 19:00 07:00 Intake Total 1125 ml 460 ml Output Total 550 ml 550 ml Balance 575 ml -90 ml Intake Oral 350 ml IV Total 165 ml 110 ml Other 960 ml Output Urine Total 550 ml 550 ml # Voids 3 4 # Bowel Movements 1 Laboratory Tests 11/13/17 06:10: White Blood Count 7.1, Red Blood Count 3.15L, Hemoglobin 7.8L, Hematocrit 24.1L , Mean Corpuscular Volume 77L, Mean Corpuscular Hemoglobin 24.9L, Mean Corpuscular Hemoglobin Concent 32.5, Red Cell Distribution Width 16.8H, Platelet Count 225, Mean Platelet Volume 8.7, Neutrophils (%) (Auto) , Lymphocytes (%) (Auto) , Monocytes (%) (Auto) , Eosinophils (%) (Auto) , Basophils (%) (Auto) , Differential Total Cells Counted 100, Neutrophils % ( Manual) 62, Lymphocytes % (Manual) 24, Monocytes % (Manual) 5, Eosinophils % ( Manual) 9H, Basophils % (Manual) 0, Band Neutrophils 0, Platelet Estimate Adequate, Platelet Morphology Normal, Hypochromasia 1+, Anisocytosis 1+, Sodium Level 143, Potassium Level 3.5, Chloride Level 111H, Carbon Dioxide Level 27, Anion Gap 6, Blood Urea Nitrogen 32H, Creatinine 1.3, Estimat Glomerular Filtration Rate , Glucose Level 61L, Uric Acid 5.7, Calcium Level 6.5L, Phosphorus Level 2.4L, Magnesium Level 1.5L, Total Bilirubin 0.6, Aspartate Amino Transf (AST/SGOT) 32, Alanine Aminotransferase (ALT/SGPT) 22, Alkaline Phosphatase 126H, C-Reactive Protein, Quantitative 1.8H, Pro-B-Type Natriuretic Peptide 1122H, Total Protein 5.4L, Albumin 2.0L, Globulin 3.4, Albumin/Globulin Ratio 0.6L 11/13/17 18:25: C-Reactive Protein, Quantitative 2.1H Height (Feet): 5 Height (Inches): 8.00 Weight (Pounds): 185 Objective General: alert, cooperative, no distress, appears stated age Head: normocephalic, without obvious abnormality, atraumatic Eyes: conjunctivae/corneas clear. PERRL, EOM's intact Throat: lips, mucosa, and tongue normal. MMM Neck: supple, symmetrical, trachea midline, and no JVD Lungs: clear to auscultation bilaterally Heart: regular rate and rhythm, S1, S2 normal, no murmur, click, rub or gallop Abdomen: soft, non-tender, non-distended, bowel sounds normal Extremities: extremities normal, atraumatic, no cyanosis, 1-2+ pitting edema BLE Pulses: 2+ and symmetric Skin: Left foot dressing c/d/i, Right foot dressing c/d/i Neurologic: grossly normal, no focal deficits Conner Orozco M.D. Nov 13, 2017 22:34
--- NOTE | 2017-11-13 23:09 | General Progress Note ---
Assessment/Plan Assessment/Plan #. Anemia due to underlying chronic disease. --> Continue to closely monitor and trend. Hemoglobin goal is above 7 --> anemia workup reviewed. Iron 9, TIBC 127, B12 1791, Folate 41 --> Hemoglobin levels have downtrended from yesterday, but remain above goal at this point. --> will need transfuse if levels continue to drop #. Anemia of iron deficiency, potentially secondary to osteomyelitis. --> Monitor closely. Trend cbc. --> On iron supplement. Improved. --> Hemoglobin levels have been stable. #. Anemia due to underlying kidney disease. --> Closely monitor, again improving. #. Leukocytosis, status post debridement, gram-negative jasmyn infection noted. --> Wbc count now WNL after antibiotic treatment. --> Remains on meropenem. Monitor closely. --> Infectious Disease Service following. #. Thrombocytosis, likely reactive process from underlying anemia, closely monitor for improvement. --> Resolved. #. Elevated creatinine, chronic kidney disease. #. Diabetes mellitus, on insulin sliding scale as needed as per primary team. #. Diastolic dysfunction. DC planning for SNF. Patient unable to take care of self at home. #. Encephalopathy. --> Pt unable to take care of self. Refuses to go home. Pending placement in SNF. Subjective Date patient seen: Nov 13, 2017 Constitutional: Denies: no symptoms, chills, diaphoresis, fever, malaise, weakness, other HEENT: Denies: no symptoms, eye pain, blurred vision, tearing, double vision, ear pain, ear discharge, nose pain, nose congestion, throat pain, throat swelling, mouth pain, mouth swelling, other Cardiovascular: Denies: no symptoms, chest pain, edema, irregular heart rate, lightheadedness, palpitations, syncope, other Respiratory: Denies: no symptoms, cough, orthopnea, shortness of breath, SOB with excertion, SOB at rest, sputum, stridor, wheezing, other Gastrointestinal/Abdominal: Denies: no symptoms, abdomen distended, abdominal pain, black stools, tarry stools, blood in stool, constipated, diarrhea, difficulty swallowing, nausea, poor appetite, poor fluid intake, rectal bleeding , vomiting, other Genitourinary: Denies: no symptoms, burning, discharge, frequency, flank pain, hematuria, incontinence, pain, urgency, other Neurologic/Psychiatric: Denies: no symptoms, anxiety, depressed, emotional problems, headache, numbness, paresthesia, pre-existing deficit, seizure, tingling, tremors, weakness, other Hematologic/Lymphatic: Reports: anemia Allergies: Coded Allergies: GABAPENTIN (Verified Allergy, Unknown, 10/11/17) OLIVE OIL (Verified Adverse Reaction, Severe, SPASM IN THE COLON, 01/18/14) PREGABALIN (Verified Adverse Reaction, Intermediate, "hypernervous", ) ACETAMINOPHEN (Verified Adverse Reaction, Mild, IRRITABILITY AND ELEVATED BLOOD PRESSURE, 01/18/14) IBUPROFEN (Verified Adverse Reaction, Mild, IRRITABILITY AND ELEVATED BLOOD PRESSURE, 01/18/14) Uncoded Allergies: SSRI (Allergy, Unknown, 10/11/17) Subjective Hemoglobin downtrended today. Encephalopathic. Objective Last 24 Hour Vital Signs Date Time Temp Pulse Resp B/P (MAP) Pulse Ox O2 Delivery O2 Flow Rate FiO2 11/13/17 20:00 99.4 72 20 165/91 98 99.4 11/13/17 16:05 97.4 68 21 140/57 99 Room Air 97.4 11/13/17 12:04 97.7 62 21 147/60 99 Room Air 97.7 11/13/17 08:00 97.9 81 19 140/62 97 Room Air 97.9 11/13/17 04:00 97.7 62 20 141/54 100 97.7 11/13/17 00:00 97.8 63 20 147/63 97 97.8 Intake and Output 11/12/17 11/13/17 19:00 07:00 Intake Total 1125 ml 460 ml Output Total 550 ml 550 ml Balance 575 ml -90 ml Intake Oral 350 ml IV Total 165 ml 110 ml Other 960 ml Output Urine Total 550 ml 550 ml # Voids 3 4 # Bowel Movements 1 Laboratory Tests 11/13/17 06:10: White Blood Count 7.1, Red Blood Count 3.15L, Hemoglobin 7.8L, Hematocrit 24.1L , Mean Corpuscular Volume 77L, Mean Corpuscular Hemoglobin 24.9L, Mean Corpuscular Hemoglobin Concent 32.5, Red Cell Distribution Width 16.8H, Platelet Count 225, Mean Platelet Volume 8.7, Neutrophils (%) (Auto) , Lymphocytes (%) (Auto) , Monocytes (%) (Auto) , Eosinophils (%) (Auto) , Basophils (%) (Auto) , Differential Total Cells Counted 100, Neutrophils % ( Manual) 62, Lymphocytes % (Manual) 24, Monocytes % (Manual) 5, Eosinophils % ( Manual) 9H, Basophils % (Manual) 0, Band Neutrophils 0, Platelet Estimate Adequate, Platelet Morphology Normal, Hypochromasia 1+, Anisocytosis 1+, Sodium Level 143, Potassium Level 3.5, Chloride Level 111H, Carbon Dioxide Level 27, Anion Gap 6, Blood Urea Nitrogen 32H, Creatinine 1.3, Estimat Glomerular Filtration Rate , Glucose Level 61L, Uric Acid 5.7, Calcium Level 6.5L, Phosphorus Level 2.4L, Magnesium Level 1.5L, Total Bilirubin 0.6, Aspartate Amino Transf (AST/SGOT) 32, Alanine Aminotransferase (ALT/SGPT) 22, Alkaline Phosphatase 126H, C-Reactive Protein, Quantitative 1.8H, Pro-B-Type Natriuretic Peptide 1122H, Total Protein 5.4L, Albumin 2.0L, Globulin 3.4, Albumin/Globulin Ratio 0.6L 11/13/17 18:25: C-Reactive Protein, Quantitative 2.1H Height (Feet): 5 Height (Inches): 8.00 Weight (Pounds): 185 General Appearance: confused Respiratory/Chest: decreased breath sounds Abdomen: soft Edema: trace edema Giovany Wiggins MD Nov 13, 2017 23:09
[2017-11-14] VITALS: BP 114/51
[2017-11-14] MEDS: oxyCODONE 5mg IR tab ORAL PRN (01:24)
[2017-11-14 04:00] VITALS: BP 117/62
[2017-11-14] MEDS: oxyCONTIN 10mg tab ORAL SCH ×3 (06:02→21:08)
[2017-11-14] MEDS: NovoLOG Insulin Flexpen SUBQ SCH ×4 (06:10→21:16)
[2017-11-14 06:38] LABS: BASOPHILS % (AUTO) 1.5 % (0.0-2.0); EOSINOPHILS % (AUTO) 3.6 % (0.0-3.0); HEMATOCRIT 26.3 % (42.0-52.0); HEMOGLOBIN 8.2 G/DL (14.2-18.0); LYMPHOCYTES % (AUTO) 21.1 % (20.0-45.0); MEAN CORPUSCULAR VOLUME 77 FL (80-99); MONOCYTES % (AUTO) 5.7 % (1.0-10.0); NEUTROPHILS % (AUTO) 68.2 % (45.0-75.0); PLATELET COUNT 195 K/UL (150-450); RED CELL DISTRIBUTION WIDTH 16.7 % (11.6-14.8); WHITE BLOOD COUNT 8.2 K/UL (4.8-10.8)
[2017-11-14 07:43] LABS: ALANINE AMINOTRANSFERASE 37 U/L (12-78); ALBUMIN 2.1 G/DL (3.4-5.0); ALBUMIN/GLOBULIN RATIO 0.6 (1.0-2.7); ALKALINE PHOSPHATASE 147 U/L (46-116); ANION GAP 7 mmol/L (5-15); ASPARTATE AMINO TRANSFERASE 44 U/L (15-37); BILIRUBIN,TOTAL 0.9 MG/DL (0.2-1.0); BLOOD UREA NITROGEN 36 mg/dL (7-18); CALCIUM 7.1 MG/DL (8.5-10.1); CARBON DIOXIDE 26 MMOL/L (21-32); CHLORIDE 107 MMOL/L (98-107); CREATININE 1.4 MG/DL (0.55-1.30); PHOSPHORUS 3.5 MG/DL (2.5-4.9); POTASSIUM 4.1 MMOL/L (3.5-5.1); SODIUM 140 MMOL/L (136-145)
[2017-11-14 08:00] VITALS: BP_SYST 158; BP_SYST 162; BP_DIAS 63; BP_DIAS 82
[2017-11-14] MEDS: Tigecycline 50 MG in D5W 110 ML IVPB SCH ×2 (08:35→21:10)
[2017-11-14] MEDS: Ascorbic Acid 500mg tab ORAL SCH (08:35)
[2017-11-14] MEDS: Analgesic Balm 15gm TOPIC SCH ×2 (08:35→18:37)
[2017-11-14] MEDS: Vitamin D 1000 IU Tab ORAL SCH ×2 (08:35→12:25)
[2017-11-14] MEDS: Dakin's 0.125% Soln (Quarter Strength) 16oz TOPIC SCH (08:36)
--- NOTE | 2017-11-14 10:21 | Nephrology Progress Note ---
Assessment/Plan Problem List: (1) HTN (hypertension) (2) Diabetes mellitus (3) Ulcer of left heel (4) Renal insufficiency Assessment cr carlos above 3 now gradually lowering Foot ulcer, left left leg cellulitis, left heel ulcer, ? osteo, leukocytosis, lgt Renal insufficiency acute vs chronic Cr lowering now 1.6 Urinary retention: REFUSES NG Anemia UTI Plan mag and Phos and K supp as needed IV venofer PO Vit D Avoid Nephrotoxics Keep BP in check monitor renal parameters Anemia henry urine studies flomax start cardura Kid[facility] Unremarkable kidneys. Negative for hydronephrosis Note inability of the patient to void with a bladder volume of 337 mL 2D echo :Left ventricular ejection fraction estimated to be 55-60%. No evidence of left ventricular hypertrophy. Subjective ROS Limited/Unobtainable: No Constitutional: Reports: malaise Objective Objective Last 24 Hour Vital Signs Date Time Temp Pulse Resp B/P (MAP) Pulse Ox O2 Delivery O2 Flow Rate FiO2 11/14/17 04:00 97.9 78 20 117/62 97 97.9 11/14/17 00:00 99.0 72 20 114/51 99 99.0 11/13/17 20:00 99.4 72 20 165/91 98 99.4 11/13/17 16:05 97.4 68 21 140/57 99 Room Air 97.4 11/13/17 12:04 97.7 62 21 147/60 99 Room Air 97.7 Intake and Output 11/13/17 11/14/17 19:00 07:00 Intake Total 975 ml 591.6667 ml Output Total 700 ml Balance 975 ml -108.3333 ml Intake Oral 720 ml IV Total 255 ml 591.6667 ml Output Urine Total 700 ml # Bowel Movements 2 Laboratory Tests 11/13/17 18:25: C-Reactive Protein, Quantitative 2.1H 11/14/17 05:30: White Blood Count 8.2, Red Blood Count 3.40L, Hemoglobin 8.2L, Hematocrit 26.3L , Mean Corpuscular Volume 77L, Mean Corpuscular Hemoglobin 24.2L, Mean Corpuscular Hemoglobin Concent 31.2L, Red Cell Distribution Width 16.7H, Platelet Count 195, Mean Platelet Volume 7.2, Neutrophils (%) (Auto) 68.2, Lymphocytes (%) (Auto) 21.1, Monocytes (%) (Auto) 5.7, Eosinophils (%) (Auto) 3.6H, Basophils (%) (Auto) 1.5, Sodium Level 140, Potassium Level 4.1, Chloride Level 107, Carbon Dioxide Level 26, Anion Gap 7, Blood Urea Nitrogen 36H, Creatinine 1.4H, Estimat Glomerular Filtration Rate , Glucose Level 133H, Uric Acid 6.0, Calcium Level 7.1L, Phosphorus Level 3.5, Magnesium Level 2.4, Total Bilirubin 0.9, Aspartate Amino Transf (AST/SGOT) 44H, Alanine Aminotransferase ( ALT/SGPT) 37, Alkaline Phosphatase 147H, Pro-B-Type Natriuretic Peptide 1216H, Total Protein 5.5L, Albumin 2.1L, Globulin 3.4, Albumin/Globulin Ratio 0.6L, Thyroid Stimulating Hormone (TSH) 2.085 Height (Feet): 5 Height (Inches): 8.00 Weight (Pounds): 185 General Appearance: no apparent distress Objective no other changes IHSAN REGALADO Nov 14, 2017 10:21
[2017-11-14 12:00] VITALS: BP 126/60
[2017-11-14] MEDS: Tums 500mg ORAL SCH ×3 (13:00→14:09)
[2017-11-14] MEDS ORDERED: Calcium Gluconate 10% 2 GM in NS 110 ML IVPB ONE (13:00)
[2017-11-14 16:00] VITALS: BP 133/63
[2017-11-14] MEDS: Ertapenem 1gm in NS 55ml IVPB SCH (17:01)
[2017-11-14] MEDS: Doxazosin 1mg Tab ORAL SCH (17:02)
[2017-11-14 20:00] VITALS: BP 153/51
[2017-11-14] MEDS: Dyna-Hex 2% Top Sol 2oz TOPIC SCH (20:00)
[2017-11-14] MEDS: Levemir Flexpen SUBQ SCH (21:16)
--- NOTE | 2017-11-14 22:47 | General Progress Note ---
Assessment/Plan Problem List: (1) Dementia with behavioral disturbance Assessment & Plan: Dementia with behavior disturbance and agitation. lacks capacity to make decisions lacks capacity to refuse meds PLAN: 1. Continue risperidone 1 mg at bedtime. 2. Continue Remeron 15 at bedtime. 3. Continue to follow and readjust the medications. ICD Codes: F03.91 - Unspecified dementia with behavioral disturbance SNOMED: 3462669576418 Assessment/Plan Dementia with behavior disturbance and agitation. lacks capacity to make decisions lacks capacity to refuse meds PLAN: 1. Continue risperidone 1 mg at bedtime. 2. Continue Remeron 15 at bedtime. 3. Continue to follow and readjust the medications. Subjective Date patient seen: Nov 14, 2017 Neurologic/Psychiatric: Reports: anxiety, depressed, emotional problems Allergies: Coded Allergies: GABAPENTIN (Verified Allergy, Unknown, 10/11/17) OLIVE OIL (Verified Adverse Reaction, Severe, SPASM IN THE COLON, 01/18/14) PREGABALIN (Verified Adverse Reaction, Intermediate, "hypernervous", ) ACETAMINOPHEN (Verified Adverse Reaction, Mild, IRRITABILITY AND ELEVATED BLOOD PRESSURE, 01/18/14) IBUPROFEN (Verified Adverse Reaction, Mild, IRRITABILITY AND ELEVATED BLOOD PRESSURE, 01/18/14) Uncoded Allergies: SSRI (Allergy, Unknown, 10/11/17) Subjective the pt is . forgetful Objective Last 24 Hour Vital Signs Date Time Temp Pulse Resp B/P (MAP) Pulse Ox O2 Delivery O2 Flow Rate FiO2 11/14/17 20:00 97.2 63 20 153/51 95 97.2 11/14/17 16:00 97.9 69 20 133/63 95 Room Air 97.9 11/14/17 13:51 98.3 11/14/17 12:00 97.9 75 20 126/60 95 Room Air 97.9 11/14/17 08:00 98.3 60 20 158/63 95 98.3 11/14/17 04:00 97.9 78 20 117/62 97 97.9 11/14/17 00:00 99.0 72 20 114/51 99 99.0 Intake and Output 11/13/17 11/14/17 19:00 07:00 Intake Total 975 ml 591.6667 ml Output Total 700 ml Balance 975 ml -108.3333 ml Intake Oral 720 ml IV Total 255 ml 591.6667 ml Output Urine Total 700 ml # Bowel Movements 2 Laboratory Tests 11/14/17 05:30: White Blood Count 8.2, Red Blood Count 3.40L, Hemoglobin 8.2L, Hematocrit 26.3L , Mean Corpuscular Volume 77L, Mean Corpuscular Hemoglobin 24.2L, Mean Corpuscular Hemoglobin Concent 31.2L, Red Cell Distribution Width 16.7H, Platelet Count 195, Mean Platelet Volume 7.2, Neutrophils (%) (Auto) 68.2, Lymphocytes (%) (Auto) 21.1, Monocytes (%) (Auto) 5.7, Eosinophils (%) (Auto) 3.6H, Basophils (%) (Auto) 1.5, Sodium Level 140, Potassium Level 4.1, Chloride Level 107, Carbon Dioxide Level 26, Anion Gap 7, Blood Urea Nitrogen 36H, Creatinine 1.4H, Estimat Glomerular Filtration Rate , Glucose Level 133H, Uric Acid 6.0, Calcium Level 7.1L, Phosphorus Level 3.5, Magnesium Level 2.4, Total Bilirubin 0.9, Aspartate Amino Transf (AST/SGOT) 44H, Alanine Aminotransferase ( ALT/SGPT) 37, Alkaline Phosphatase 147H, Pro-B-Type Natriuretic Peptide 1216H, Total Protein 5.5L, Albumin 2.1L, Globulin 3.4, Albumin/Globulin Ratio 0.6L, Thyroid Stimulating Hormone (TSH) 2.085 Height (Feet): 5 Height (Inches): 8.00 Weight (Pounds): 185 Milton Lancaster M.D. Nov 14, 2017 22:47
[2017-11-15] VITALS: BP 128/61
[2017-11-15 04:00] VITALS: BP 107/42
[2017-11-15] MEDS: oxyCONTIN 10mg tab ORAL SCH ×3 (06:00→21:35)
[2017-11-15] MEDS: NovoLOG Insulin Flexpen SUBQ SCH ×4 (06:30→21:36)
--- NOTE | 2017-11-15 07:43 | General Progress Note ---
Assessment/Plan Problem List: (1) Gram-negative bacteremia Assessment & Plan: Bacterioides fragilis bacteremia ICD Codes: R78.81 - Bacteremia SNOMED: 943003622139 (2) Sepsis ICD Codes: A41.9 - Sepsis, unspecified organism SNOMED: 21631040 (3) Progressive osteomyelitis of the posterior calcaneus (4) Cellulitis of left lower extremity ICD Codes: L03.116 - Cellulitis of left lower limb SNOMED: 933162835 (5) L heel diabetic ulcer with concern for osteomyelitis (6) Complete tear with retraction of the calcaneal tendon (7) MISHEL on CKD (8) CKD stage 3 (9) DM2 (diabetes mellitus, type 2) Assessment & Plan: A1C 9.9 ICD Codes: E11.9 - Type 2 diabetes mellitus without complications SNOMED: 53085782 (10) HTN (hypertension) ICD Codes: I10 - Essential (primary) hypertension SNOMED: 99717440 (11) Diabetic neuropathy ICD Codes: E11.40 - Type 2 diabetes mellitus with diabetic neuropathy, unspecified SNOMED: 73832336, 573497844, 063102858 (12) Diabetic nephropathy ICD Codes: E11.21 - Type 2 diabetes mellitus with diabetic nephropathy SNOMED: 59851117, 887357702 Qualifiers: Qualified Codes: E11.21 - Type 2 diabetes mellitus with diabetic nephropathy (13) Hyponatremia ICD Codes: E87.1 - Hypo-osmolality and hyponatremia SNOMED: 20397734 (14) Chronic diabetic ulcer right foot (15) Medical non-compliance ICD Codes: Z91.19 - Patient's noncompliance with other medical treatment and regimen SNOMED: 846239510 (16) Acute on chronic diastolic (congestive) heart failure ICD Codes: I50.33 - Acute on chronic diastolic (congestive) heart failure SNOMED: 47218195, 718287975 (17) fall with head trauma Status: stable Assessment/Plan Podiatry, ID, renal consulted s/p vanco (10/11-10/16) Cont ertapenem + tigecycline per ID Will need total of 6 weeks of IV abx per ID given osteomyelitis - currently day #31 Daptomycin was d/c'd on 10/30 given elevated CK level s/p cefepime and flagyl (10/11-10/14) F/u cultures--blood culture showing GNR, wound culture showing Klebsiella and Proteus F/u repeat blood cultures--ngtd PICC line placed 10/17/17 Wound care per podiatry Check MRI L foot--shows progressive osteomyelitis, heel ulceration, soft tissue gas, complete tear of Achilles tendon s/p incision and drainage left foot, excisional debridement to the level of muscle left foot, and partial calcanectomy left foot on 10/13/17 NWB LLE Off wound vac now per podiatry Check renal U/S--shows bladder volume 337mL, refused connolly Flomax 0.4mg BID + finasteride 5mg daily Check TTE--EF 55-60% Pain control, bowel regimen Supportive care Appreciate psych consult Cont SNF meds ZENIA DC once authorization for SNF obtained Pt unable to go home as he lives alone, 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 Disposition: Once the patient is stable to leave the hospital, I anticipate the patient will likely be discharged to the following environment: back to SNF Discussed with patient/family, nursing staff, SW/CM, podiatry, ID regarding clinical status, treatment course, and disposition planning. D/w ID re abx on d/ c. D/w podiatry re wound care, d/c plan. D/w CM re dispo Time of note may not reflect time of encounter Subjective Date patient seen: Nov 14, 2017 Time patient seen: 14:00 ROS Limited/Unobtainable: No Constitutional: Reports: no symptoms HEENT: Reports: no symptoms Cardiovascular: Reports: no symptoms Respiratory: Reports: no symptoms Gastrointestinal/Abdominal: Reports: no symptoms Genitourinary: Reports: no symptoms Neurologic/Psychiatric: Reports: no symptoms Endocrine: Reports: no symptoms Hematologic/Lymphatic: Reports: no symptoms Allergies: Coded Allergies: GABAPENTIN (Verified Allergy, Unknown, 10/11/17) OLIVE OIL (Verified Adverse Reaction, Severe, SPASM IN THE COLON, 01/18/14) PREGABALIN (Verified Adverse Reaction, Intermediate, "hypernervous", ) ACETAMINOPHEN (Verified Adverse Reaction, Mild, IRRITABILITY AND ELEVATED BLOOD PRESSURE, 01/18/14) IBUPROFEN (Verified Adverse Reaction, Mild, IRRITABILITY AND ELEVATED BLOOD PRESSURE, 01/18/14) Uncoded Allergies: SSRI (Allergy, Unknown, 10/11/17) Subjective No acute o/n events s/p incision and drainage left foot, excisional debridement to the level of muscle left foot, and partial calcanectomy left foot POD#32 SCr stable Awaiting authorization for SNF as pt's Medicare days have run out Pt more compliant with meds now Pt feels depressed and frustrated that he is still here. Seen by psych and mood improving Awake, alert. Denies n/v, d/c, chest pain, SOB, abd pain. Foot pain stable. Objective Last 24 Hour Vital Signs Date Time Temp Pulse Resp B/P (MAP) Pulse Ox O2 Delivery O2 Flow Rate FiO2 11/15/17 04:00 98.2 60 20 107/42 97 98.2 11/15/17 00:00 97.0 70 21 128/61 98 97.0 11/14/17 20:00 97.2 63 20 153/51 95 97.2 11/14/17 16:00 97.9 69 20 133/63 95 Room Air 97.9 11/14/17 13:51 98.3 11/14/17 12:00 97.9 75 20 126/60 95 Room Air 97.9 11/14/17 08:00 98.3 60 20 158/63 95 98.3 Intake and Output 11/14/17 11/15/17 19:00 07:00 Intake Total 480 ml Output Total 550 ml Balance 480 ml -550 ml Intake Oral 480 ml Stool Total 550 ml # Voids 3 Height (Feet): 5 Height (Inches): 8.00 Weight (Pounds): 185 Objective General: alert, cooperative, no distress, appears stated age Head: normocephalic, without obvious abnormality, atraumatic Eyes: conjunctivae/corneas clear. PERRL, EOM's intact Throat: lips, mucosa, and tongue normal. MMM Neck: supple, symmetrical, trachea midline, and no JVD Lungs: clear to auscultation bilaterally Heart: regular rate and rhythm, S1, S2 normal, no murmur, click, rub or gallop Abdomen: soft, non-tender, non-distended, bowel sounds normal Extremities: extremities normal, atraumatic, no cyanosis, 1-2+ pitting edema BLE Pulses: 2+ and symmetric Skin: Left foot dressing c/d/i, Right foot dressing c/d/i Neurologic: grossly normal, no focal deficits Conner Orozco M.D. Nov 15, 2017 07:43
[2017-11-15 08:00] VITALS: BP 102/73
[2017-11-15] MEDS: Doxazosin 1mg Tab ORAL SCH (08:43)
[2017-11-15] MEDS: Tums 500mg ORAL SCH ×3 (08:43→17:14)
[2017-11-15] MEDS: Ascorbic Acid 500mg tab ORAL SCH (08:44)
[2017-11-15] MEDS: Vitamin D 1000 IU Tab ORAL SCH ×2 (08:44)
[2017-11-15] MEDS: Tigecycline 50 MG in D5W 110 ML IVPB SCH ×2 (08:44→21:39)
[2017-11-15] MEDS: Dakin's 0.125% Soln (Quarter Strength) 16oz TOPIC SCH (08:45)
[2017-11-15] MEDS: Analgesic Balm 15gm TOPIC SCH ×2 (08:45→17:34)
[2017-11-15 12:00] VITALS: BP 123/51
--- NOTE | 2017-11-15 15:56 | Infectious Diseases Prog Note ---
Assessment/Plan Assessment/Plan ASSESSMENT AND PLAN: 1. bacteroides bacteremia, proteus/klebsiella/vre left heel/foot wound infection and osteomyelitis on MRI, sepsis, leukocytosis, ? fungal uti - elevated CK noted, ? secondary daptomycin, now wnl off daptomycin - s/p debridement, debridement as needed per podiatry - leg redness improving, minimal redness now, chronic edema - clinically wounds better, podiatry note reviewed - continue wound care per podiatry - f/u labs, ck wnl - sed rate significantly improved - invanz and tygecycline for now because of elevated ck with daptomycin - abx started on 10/14, plan on 6 week course - day #32/42 - vre colonized 2. Elevated creatinine, chronic renal failure, acute kidney injury, elevated ck , s/p fall, ? rhabdomyolysis 3. Anemia. 4. The patient with history of diabetes. 5. Hypertension. 6. Blood sugar and blood pressure treatment per primary. 7. Benign prostatic hypertrophy. 8. Atherosclerotic cardiovascular disease. 9. Chronic diastolic congestive heart failure. 10. Anemia. 11. Dizziness, headaches, weakness, and fatigue. 12. Allergies, acetaminophen, gabapentin, ibuprofen, Elavil, pregabalin, and selective serotonin reuptake inhibitors. 13. Social history negative. 14. Family history noncontributory. 15. MAR was noted. 16. Case discussed with RN. 17. Continue treatment per primary consultants. 18. Orders were entered. 19. Notes and records noted. Subjective Constitutional: Denies: fever HEENT: Denies: congestion Respiratory: Denies: shortness of breath Cardiovascular: Denies: chest pain Gastrointestinal/Abdominal: Denies: nausea, vomiting, diarrhea Genitourinary: Reports: other - no connolly; Denies: dysuria Neurologic: Denies: headache Psychiatric: Denies: depression Skin: Denies: rash Hematologic: Denies: bleeding Musculoskeletal: Reports: pain - controlled Allergies: Coded Allergies: GABAPENTIN (Verified Allergy, Unknown, 10/11/17) OLIVE OIL (Verified Adverse Reaction, Severe, SPASM IN THE COLON, 01/18/14) PREGABALIN (Verified Adverse Reaction, Intermediate, "hypernervous", ) ACETAMINOPHEN (Verified Adverse Reaction, Mild, IRRITABILITY AND ELEVATED BLOOD PRESSURE, 01/18/14) IBUPROFEN (Verified Adverse Reaction, Mild, IRRITABILITY AND ELEVATED BLOOD PRESSURE, 01/18/14) Uncoded Allergies: SSRI (Allergy, Unknown, 10/11/17) Objective Vital Signs Last 24 Hour Vital Signs Date Time Temp Pulse Resp B/P (MAP) Pulse Ox O2 Delivery O2 Flow Rate FiO2 11/15/17 12:00 98.2 57 20 123/51 99 Room Air 98.2 11/15/17 08:00 98.6 67 21 102/73 100 Room Air 98.6 11/15/17 04:00 98.2 60 20 107/42 97 98.2 11/15/17 00:00 97.0 70 21 128/61 98 97.0 11/14/17 20:00 97.2 63 20 153/51 95 97.2 11/14/17 16:00 97.9 69 20 133/63 95 Room Air 97.9 Height (Feet): 5 Height (Inches): 8.00 Weight (Pounds): 185 General Appearance: no acute distress HEENT: normocephalic, atraumatic, anicteric, mucous membranes moist Respiratory/Chest: lungs clear, normal breath sounds, no respiratory distress, no accessory muscle use Cardiovascular: normal rate, regular rhythm, no gallop/murmur, no JVD Abdomen: normal bowel sounds, soft, non tender, no organomegaly, non distended Genitourinary: other - no connolly Extremities: other Skin: no rash, other - minimal left leg redness 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 No acute process otherwise. MRI left foot and ankle - Impression: Positive for progressive osteomyelitis of the posterior calcaneus, since prior study of 08/02/2017 Increasing ulceration of the overlying soft tissues, with possible exposure of the medial aspect of the calcaneal tuberosity. Small amount of gas within the medial soft tissues,. The related open wound or could indicate infection by gas-forming organism Complete tear with retraction of the calcaneal tendon, as described. Fluid in the tibiotalar joint. Probably reactive secondary to the above Diffuse edema of the subcutaneous fat. This could be due to cellulitis or could be related to hemodynamic abnormalities Other findings as noted Findings discussed by phone with Dr. Prieto at the time of interpretation Microbiology Date/Time Source Procedure Growth Status 10/14/17 08:50 Blood Blood Culture - Final NO GROWTH AFTER 5 DAYS Complete 10/11/17 17:00 Nasal Nares MRSA Culture - Final NO METHICILLIN RESISTANT STAPH AUREUS... Complete 10/30/17 04:15 Urine,Clean Catch Urine Culture - Final Jessie Albicans Complete 10/13/17 19:20 Foot Left Gram Stain - Final Complete 10/13/17 19:20 Aerobic Culture - Final Klebsiella Pneumoniae Proteus Mirabilis Enterococcus Faecium - Vre Complete 10/13/17 19:20 Foot Left Anaerobic Culture - Final NO ANAEROBES ISOLATED Complete Labs Test 11/13/17 06:10 11/13/17 18:25 11/14/17 05:30 White Blood Count 7.1 K/UL (4.8-10.8) 8.2 K/UL (4.8-10.8) Red Blood Count 3.15 M/UL (4.70-6.10) 3.40 M/UL (4.70-6.10) Hemoglobin 7.8 G/DL (14.2-18.0) 8.2 G/DL (14.2-18.0) Hematocrit 24.1 % (42.0-52.0) 26.3 % (42.0-52.0) Mean Corpuscular Volume 77 FL (80-99) 77 FL (80-99) Mean Corpuscular Hemoglobin 24.9 PG (27.0-31.0) 24.2 PG (27.0-31.0) Mean Corpuscular Hemoglobin Concent 32.5 G/DL (32.0-36.0) 31.2 G/DL (32.0-36.0) Red Cell Distribution Width 16.8 % (11.6-14.8) 16.7 % (11.6-14.8) Platelet Count 225 K/UL (150-450) 195 K/UL (150-450) Mean Platelet Volume 8.7 FL (6.5-10.1) 7.2 FL (6.5-10.1) Neutrophils (%) (Auto) % (45.0-75.0) 68.2 % (45.0-75.0) Lymphocytes (%) (Auto) % (20.0-45.0) 21.1 % (20.0-45.0) Monocytes (%) (Auto) % (1.0-10.0) 5.7 % (1.0-10.0) Eosinophils (%) (Auto) % (0.0-3.0) 3.6 % (0.0-3.0) Basophils (%) (Auto) % (0.0-2.0) 1.5 % (0.0-2.0) Differential Total Cells Counted 100 Neutrophils % (Manual) 62 % (45-75) Lymphocytes % (Manual) 24 % (20-45) Monocytes % (Manual) 5 % (1-10) Eosinophils % (Manual) 9 % (0-3) Basophils % (Manual) 0 % (0-2) Band Neutrophils 0 % (0-8) Platelet Estimate Adequate Platelet Morphology Normal Hypochromasia 1+ Anisocytosis 1+ Sodium Level 143 MMOL/L (136-145) 140 MMOL/L (136-145) Potassium Level 3.5 MMOL/L (3.5-5.1) 4.1 MMOL/L (3.5-5.1) Chloride Level 111 MMOL/L (98-107) 107 MMOL/L (98-107) Carbon Dioxide Level 27 MMOL/L (21-32) 26 MMOL/L (21-32) Anion Gap 6 mmol/L (5-15) 7 mmol/L (5-15) Blood Urea Nitrogen 32 mg/dL (7-18) 36 mg/dL (7-18) Creatinine 1.3 MG/DL (0.55-1.30) 1.4 MG/DL (0.55-1.30) Estimat Glomerular Filtration Rate mL/min (>60) mL/min (>60) Glucose Level 61 MG/DL (74-106) 133 MG/DL (74-106) Uric Acid 5.7 MG/DL (2.6-7.2) 6.0 MG/DL (2.6-7.2) Calcium Level 6.5 MG/DL (8.5-10.1) 7.1 MG/DL (8.5-10.1) Phosphorus Level 2.4 MG/DL (2.5-4.9) 3.5 MG/DL (2.5-4.9) Magnesium Level 1.5 MG/DL (1.8-2.4) 2.4 MG/DL (1.8-2.4) Total Bilirubin 0.6 MG/DL (0.2-1.0) 0.9 MG/DL (0.2-1.0) Aspartate Amino Transf (AST/SGOT) 32 U/L (15-37) 44 U/L (15-37) Alanine Aminotransferase (ALT/SGPT) 22 U/L (12-78) 37 U/L (12-78) Alkaline Phosphatase 126 U/L (46-116) 147 U/L (46-116) C-Reactive Protein, Quantitative 1.8 mg/dL (0.00-0.90) 2.1 mg/dL (0.00-0.90) Pro-B-Type Natriuretic Peptide 1122 pg/mL (0-125) 1216 pg/mL (0-125) Total Protein 5.4 G/DL (6.4-8.2) 5.5 G/DL (6.4-8.2) Albumin 2.0 G/DL (3.4-5.0) 2.1 G/DL (3.4-5.0) Globulin 3.4 g/dL 3.4 g/dL Albumin/Globulin Ratio 0.6 (1.0-2.7) 0.6 (1.0-2.7) Thyroid Stimulating Hormone (TSH) 2.085 uiU/mL (0.358-3.740) Current Medications Medications (Trade) Dose Ordered Sig/Dari Route PRN Reason Start Time Stop Time Status Last Admin Dose Admin Ascorbic Acid (Vitamin C) 500 mg DAILY ORAL 10/25/17 09:00 11/24/17 08:59 11/15/17 08:44 Calcium Carbonate (Tums) 500 mg THREE TIMES A DAY ORAL 11/14/17 13:00 12/14/17 12:59 Chlorhexidine Gluconate (Sarah-Hex 2%) 1 applic DAILY@1999 TOPIC 10/31/17 20:00 11/30/17 19:59 11/12/17 21:30 Dextrose (Dextrose 50%) STAT PRN IV Hypoglycemia 11/15/17 07:00 12/15/17 06:59 Diphenhydramine HCl (Benadryl) 25 mg Q6H PRN ORAL Itching 10/22/17 23:45 11/21/17 23:44 11/12/17 21:30 Ertapenem 1 gm/ Sodium Chloride 55 ml @ 110 mls/hr Q24H IVPB 11/06/17 16:00 11/25/17 15:59 11/14/17 17:01 Insulin Aspart (NovoLOG) BEFORE MEALS AND HS SUBQ 11/10/17 21:00 12/10/17 20:59 11/14/17 21:16 Insulin Detemir (Levemir) 12 units Q24H SUBQ 10/16/17 18:00 11/15/17 17:59 11/14/17 21:16 Menthol/Methyl Salicylate (Bengay) 1 applic BID TOPIC 10/18/17 20:00 11/17/17 19:59 11/14/17 18:37 Mirtazapine (Remeron) 15 mg BEDTIME ORAL 11/11/17 21:00 12/11/17 20:59 11/12/17 21:30 Oxycodone HCl (OxyCONTIN) 10 mg Q8HR ORAL 11/09/17 14:00 11/16/17 13:59 11/15/17 14:36 Oxycodone HCl (Roxicodone) 5 mg Q3H PRN ORAL Breakthrough Pain 11/09/17 12:00 11/16/17 11:59 11/14/17 01:24 Sodium Hypochlorite (Dakin's Quarter Strength) 1 applic DAILY TOPIC 10/20/17 09:00 11/19/17 08:59 11/15/17 08:45 Tigecycline 50 mg/ Dextrose 110 ml @ 220 mls/hr Q12HR@0800,2000 IVPB 11/05/17 20:00 11/25/17 19:59 11/15/17 08:44 Vitamin D (Vitamin D) 2,000 intlu DAILY ORAL 10/22/17 09:00 11/21/17 08:59 11/15/17 08:44 Vitamin D (Vitamin D) 5,000 intlu DAILY ORAL 11/14/17 12:00 12/14/17 11:59 11/14/17 12:25 LARON HERNANDEZ Nov 15, 2017 15:56
[2017-11-15 16:00] VITALS: BP 127/53
--- NOTE | 2017-11-15 16:17 | Nephrology Progress Note ---
Assessment/Plan Problem List: (1) HTN (hypertension) (2) Diabetes mellitus (3) Ulcer of left heel (4) Renal insufficiency Assessment cr carlos above 3 now gradually lowering now 1.4 Foot ulcer, left left leg cellulitis, left heel ulcer, ? osteo, leukocytosis, lgt Renal insufficiency acute vs chronic Cr lowering now 1.6 Urinary retention: REFUSES NG Anemia UTI Plan mag and Phos and K supp as needed IV venofer PO Vit D Avoid Nephrotoxics Keep BP in check monitor renal parameters Anemia henry urine studies on cardura Kid[facility] FAMILIA Unremarkable kidneys. Negative for hydronephrosis Note inability of the patient to void with a bladder volume of 337 mL 2D echo :Left ventricular ejection fraction estimated to be 55-60%. No evidence of left ventricular hypertrophy. Subjective ROS Limited/Unobtainable: No Constitutional: Reports: malaise, weakness Objective Objective Last 24 Hour Vital Signs Date Time Temp Pulse Resp B/P (MAP) Pulse Ox O2 Delivery O2 Flow Rate FiO2 11/15/17 12:00 98.2 57 20 123/51 99 Room Air 98.2 11/15/17 08:00 98.6 67 21 102/73 100 Room Air 98.6 11/15/17 04:00 98.2 60 20 107/42 97 98.2 11/15/17 00:00 97.0 70 21 128/61 98 97.0 11/14/17 20:00 97.2 63 20 153/51 95 97.2 Intake and Output 11/14/17 11/15/17 19:00 07:00 Intake Total 480 ml Output Total 550 ml Balance 480 ml -550 ml Intake Oral 480 ml Stool Total 550 ml # Voids 3 Height (Feet): 5 Height (Inches): 8.00 Weight (Pounds): 185 General Appearance: no apparent distress Cardiovascular: regular rhythm Respiratory/Chest: decreased breath sounds Abdomen: soft Objective no other changes IHSAN REGALADO Nov 15, 2017 16:17
[2017-11-15] MEDS: Ertapenem 1gm in NS 55ml IVPB SCH (17:04)
--- NOTE | 2017-11-15 17:09 | General Progress Note ---
Assessment/Plan Problem List: (1) Gram-negative bacteremia Assessment & Plan: Bacterioides fragilis bacteremia ICD Codes: R78.81 - Bacteremia SNOMED: 945168480628 (2) Sepsis ICD Codes: A41.9 - Sepsis, unspecified organism SNOMED: 41987841 (3) Progressive osteomyelitis of the posterior calcaneus (4) Cellulitis of left lower extremity ICD Codes: L03.116 - Cellulitis of left lower limb SNOMED: 687290082 (5) L heel diabetic ulcer with concern for osteomyelitis (6) Complete tear with retraction of the calcaneal tendon (7) MISHEL on CKD (8) CKD stage 3 (9) DM2 (diabetes mellitus, type 2) Assessment & Plan: A1C 9.9 ICD Codes: E11.9 - Type 2 diabetes mellitus without complications SNOMED: 20391949 (10) HTN (hypertension) ICD Codes: I10 - Essential (primary) hypertension SNOMED: 34844564 (11) Diabetic neuropathy ICD Codes: E11.40 - Type 2 diabetes mellitus with diabetic neuropathy, unspecified SNOMED: 06129985, 427464967, 562862946 (12) Diabetic nephropathy ICD Codes: E11.21 - Type 2 diabetes mellitus with diabetic nephropathy SNOMED: 30544829, 786937288 Qualifiers: Qualified Codes: E11.21 - Type 2 diabetes mellitus with diabetic nephropathy (13) Hyponatremia ICD Codes: E87.1 - Hypo-osmolality and hyponatremia SNOMED: 63889067 (14) Chronic diabetic ulcer right foot (15) Medical non-compliance ICD Codes: Z91.19 - Patient's noncompliance with other medical treatment and regimen SNOMED: 072658086 (16) Acute on chronic diastolic (congestive) heart failure ICD Codes: I50.33 - Acute on chronic diastolic (congestive) heart failure SNOMED: 95225279, 628098896 (17) fall with head trauma Status: stable Assessment/Plan Podiatry, ID, renal consulted s/p vanco (10/11-10/16) Cont ertapenem + tigecycline per ID Will need total of 6 weeks of IV abx per ID given osteomyelitis - currently day #32/42 Daptomycin was d/c'd on 10/30 given elevated CK level s/p cefepime and flagyl (10/11-10/14) F/u cultures--blood culture showing GNR, wound culture showing Klebsiella and Proteus F/u repeat blood cultures--ngtd PICC line placed 10/17/17 Wound care per podiatry Check MRI L foot--shows progressive osteomyelitis, heel ulceration, soft tissue gas, complete tear of Achilles tendon s/p incision and drainage left foot, excisional debridement to the level of muscle left foot, and partial calcanectomy left foot on 10/13/17 NWB LLE Off wound vac now per podiatry Check renal U/S--shows bladder volume 337mL, refused connolly Flomax 0.4mg BID + finasteride 5mg daily Check TTE--EF 55-60% Pain control, bowel regimen Supportive care Appreciate psych consult Cont SNF meds ZENIA DC once authorization for SNF obtained Pt unable to go home as he lives alone, 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 Disposition: Once the patient is stable to leave the hospital, I anticipate the patient will likely be discharged to the following environment: back to SNF Discussed with patient/family, nursing staff, SW/CM, podiatry, ID regarding clinical status, treatment course, and disposition planning. D/w ID re abx on d/ c. D/w podiatry re wound care, d/c plan. D/w CM re dispo Time of note may not reflect time of encounter Subjective Date patient seen: Nov 15, 2017 Time patient seen: 17:08 ROS Limited/Unobtainable: No Constitutional: Reports: no symptoms HEENT: Reports: no symptoms Cardiovascular: Reports: no symptoms Respiratory: Reports: no symptoms Gastrointestinal/Abdominal: Reports: no symptoms Genitourinary: Reports: no symptoms Neurologic/Psychiatric: Reports: no symptoms Endocrine: Reports: no symptoms Hematologic/Lymphatic: Reports: no symptoms Allergies: Coded Allergies: GABAPENTIN (Verified Allergy, Unknown, 10/11/17) OLIVE OIL (Verified Adverse Reaction, Severe, SPASM IN THE COLON, 01/18/14) PREGABALIN (Verified Adverse Reaction, Intermediate, "hypernervous", ) ACETAMINOPHEN (Verified Adverse Reaction, Mild, IRRITABILITY AND ELEVATED BLOOD PRESSURE, 01/18/14) IBUPROFEN (Verified Adverse Reaction, Mild, IRRITABILITY AND ELEVATED BLOOD PRESSURE, 01/18/14) Uncoded Allergies: SSRI (Allergy, Unknown, 10/11/17) Subjective No acute o/n events s/p incision and drainage left foot, excisional debridement to the level of muscle left foot, and partial calcanectomy left foot POD#33 SCr stable Awaiting authorization for SNF as pt's Medicare days have run out Pt more compliant with meds now Pt feels depressed and frustrated that he is still here. Seen by psych and mood improving Awake, alert. Denies n/v, d/c, chest pain, SOB, abd pain. Foot pain stable. Objective Last 24 Hour Vital Signs Date Time Temp Pulse Resp B/P (MAP) Pulse Ox O2 Delivery O2 Flow Rate FiO2 11/15/17 16:00 98.0 68 20 127/53 98 Room Air 98.0 11/15/17 12:00 98.2 57 20 123/51 99 Room Air 98.2 11/15/17 08:00 98.6 67 21 102/73 100 Room Air 98.6 11/15/17 04:00 98.2 60 20 107/42 97 98.2 11/15/17 00:00 97.0 70 21 128/61 98 97.0 11/14/17 20:00 97.2 63 20 153/51 95 97.2 Intake and Output 11/14/17 11/15/17 19:00 07:00 Intake Total 480 ml Output Total 550 ml Balance 480 ml -550 ml Intake Oral 480 ml Stool Total 550 ml # Voids 3 Height (Feet): 5 Height (Inches): 8.00 Weight (Pounds): 185 Objective General: alert, cooperative, no distress, appears stated age Head: normocephalic, without obvious abnormality, atraumatic Eyes: conjunctivae/corneas clear. PERRL, EOM's intact Throat: lips, mucosa, and tongue normal. MMM Neck: supple, symmetrical, trachea midline, and no JVD Lungs: clear to auscultation bilaterally Heart: regular rate and rhythm, S1, S2 normal, no murmur, click, rub or gallop Abdomen: soft, non-tender, non-distended, bowel sounds normal Extremities: extremities normal, atraumatic, no cyanosis, 1-2+ pitting edema BLE Pulses: 2+ and symmetric Skin: Left foot dressing c/d/i, Right foot dressing c/d/i Neurologic: grossly normal, no focal deficits Conner Orozco M.D. Nov 15, 2017 17:09
--- NOTE | 2017-11-15 19:22 | General Progress Note ---
Assessment/Plan Assessment/Plan #. Anemia due to underlying chronic disease. --> Continue to closely monitor and trend. Hemoglobin goal is above 7 --> anemia workup reviewed. Iron 9, TIBC 127, B12 1791, Folate 41 --> Hemoglobin levels have downtrended from yesterday, but remain above goal at this point. --> Does not need blood transfusion at this time. #. Anemia of iron deficiency, potentially secondary to osteomyelitis. --> Monitor closely. Trend cbc. --> On iron supplement. Improved. --> Hemoglobin levels have been stable. #. Anemia due to underlying kidney disease. --> Closely monitor, again improving. #. Leukocytosis, status post debridement, gram-negative jasmyn infection noted. --> Wbc count now WNL after antibiotic treatment. --> Remains on meropenem. Monitor closely. --> Infectious Disease Service following. #. Thrombocytosis, likely reactive process from underlying anemia, closely monitor for improvement. --> Resolved. #. Elevated creatinine, chronic kidney disease. #. Diabetes mellitus, on insulin sliding scale as needed as per primary team. #. Diastolic dysfunction. DC planning for SNF. Patient unable to take care of self at home. #. Encephalopathy. --> Pt unable to take care of self. Refuses to go home. Pending placement in SNF. Subjective Date patient seen: Nov 14, 2017 Constitutional: Denies: no symptoms, chills, diaphoresis, fever, malaise, weakness, other HEENT: Denies: no symptoms, eye pain, blurred vision, tearing, double vision, ear pain, ear discharge, nose pain, nose congestion, throat pain, throat swelling, mouth pain, mouth swelling, other Cardiovascular: Denies: no symptoms, chest pain, edema, irregular heart rate, lightheadedness, palpitations, syncope, other Gastrointestinal/Abdominal: Denies: no symptoms, abdomen distended, abdominal pain, black stools, tarry stools, blood in stool, constipated, diarrhea, difficulty swallowing, nausea, poor appetite, poor fluid intake, rectal bleeding , vomiting, other Genitourinary: Denies: no symptoms, burning, discharge, frequency, flank pain, hematuria, incontinence, pain, urgency, other Neurologic/Psychiatric: Denies: no symptoms, anxiety, depressed, emotional problems, headache, numbness, paresthesia, pre-existing deficit, seizure, tingling, tremors, weakness, other Hematologic/Lymphatic: Reports: anemia Allergies: Coded Allergies: GABAPENTIN (Verified Allergy, Unknown, 10/11/17) OLIVE OIL (Verified Adverse Reaction, Severe, SPASM IN THE COLON, 01/18/14) PREGABALIN (Verified Adverse Reaction, Intermediate, "hypernervous", ) ACETAMINOPHEN (Verified Adverse Reaction, Mild, IRRITABILITY AND ELEVATED BLOOD PRESSURE, 01/18/14) IBUPROFEN (Verified Adverse Reaction, Mild, IRRITABILITY AND ELEVATED BLOOD PRESSURE, 01/18/14) Uncoded Allergies: SSRI (Allergy, Unknown, 10/11/17) Subjective Confused. No fever or chills. Objective Last 24 Hour Vital Signs Date Time Temp Pulse Resp B/P (MAP) Pulse Ox O2 Delivery O2 Flow Rate FiO2 11/15/17 16:00 98.0 68 20 127/53 98 Room Air 98.0 11/15/17 12:00 98.2 57 20 123/51 99 Room Air 98.2 11/15/17 08:00 98.6 67 21 102/73 100 Room Air 98.6 11/15/17 04:00 98.2 60 20 107/42 97 98.2 11/15/17 00:00 97.0 70 21 128/61 98 97.0 11/14/17 20:00 97.2 63 20 153/51 95 97.2 Intake and Output 11/14/17 11/15/17 19:00 07:00 Intake Total 480 ml Output Total 550 ml Balance 480 ml -550 ml Intake Oral 480 ml Stool Total 550 ml # Voids 3 Height (Feet): 5 Height (Inches): 8.00 Weight (Pounds): 185 General Appearance: confused Respiratory/Chest: decreased breath sounds Abdomen: soft Edema: trace edema Giovany Wiggins MD Nov 15, 2017 19:22
[2017-11-15 20:00] VITALS: BP 117/70
[2017-11-15] MEDS: Dyna-Hex 2% Top Sol 2oz TOPIC SCH (20:00)
--- NOTE | 2017-11-15 22:58 | General Progress Note ---
Assessment/Plan Problem List: (1) Dementia with behavioral disturbance Assessment & Plan: Dementia with behavior disturbance and agitation. lacks capacity to make decisions lacks capacity to refuse meds PLAN: 1. Continue risperidone 1 mg at bedtime. 2. Continue Remeron 15 at bedtime. 3. Continue to follow and readjust the medications. ICD Codes: F03.91 - Unspecified dementia with behavioral disturbance SNOMED: 8518398605294 Assessment/Plan Dementia with behavior disturbance and agitation. lacks capacity to make decisions lacks capacity to refuse meds PLAN: 1. Continue risperidone 1 mg at bedtime. 2. Continue Remeron 15 at bedtime. 3. Continue to follow and readjust the medications. Subjective Date patient seen: Nov 15, 2017 Neurologic/Psychiatric: Reports: anxiety, depressed, emotional problems Allergies: Coded Allergies: GABAPENTIN (Verified Allergy, Unknown, 10/11/17) OLIVE OIL (Verified Adverse Reaction, Severe, SPASM IN THE COLON, 01/18/14) PREGABALIN (Verified Adverse Reaction, Intermediate, "hypernervous", ) ACETAMINOPHEN (Verified Adverse Reaction, Mild, IRRITABILITY AND ELEVATED BLOOD PRESSURE, 01/18/14) IBUPROFEN (Verified Adverse Reaction, Mild, IRRITABILITY AND ELEVATED BLOOD PRESSURE, 01/18/14) Uncoded Allergies: SSRI (Allergy, Unknown, 10/11/17) Subjective the pt is . forgetful Objective Last 24 Hour Vital Signs Date Time Temp Pulse Resp B/P (MAP) Pulse Ox O2 Delivery O2 Flow Rate FiO2 11/15/17 20:00 97.9 70 16 117/70 100 Room Air 97.9 11/15/17 16:00 98.0 68 20 127/53 98 Room Air 98.0 11/15/17 12:00 98.2 57 20 123/51 99 Room Air 98.2 11/15/17 08:00 98.6 67 21 102/73 100 Room Air 98.6 11/15/17 04:00 98.2 60 20 107/42 97 98.2 11/15/17 00:00 97.0 70 21 128/61 98 97.0 Intake and Output 11/14/17 11/15/17 19:00 07:00 Intake Total 480 ml Output Total 550 ml Balance 480 ml -550 ml Intake Oral 480 ml Stool Total 550 ml # Voids 3 Height (Feet): 5 Height (Inches): 8.00 Weight (Pounds): 185 Milton Lancaster M.D. Nov 15, 2017 22:57
[2017-11-15] MEDS ORDERED: HYDROmorphone 1mg/NS 50ml IVPB 50 ML IVPB PRN (23:30)
[2017-11-16] VITALS: BP 112/75
[2017-11-16 04:00] VITALS: BP 129/60
[2017-11-16] MEDS: oxyCONTIN 10mg tab ORAL SCH (06:19)
[2017-11-16] MEDS: NovoLOG Insulin Flexpen SUBQ SCH (06:24)
[2017-11-16 07:19] LABS: ANION GAP 5 mmol/L (5-15); BLOOD UREA NITROGEN 40 mg/dL (7-18); CALCIUM 7.2 MG/DL (8.5-10.1); CARBON DIOXIDE 27 MMOL/L (21-32); CHLORIDE 106 MMOL/L (98-107); CREATININE 1.5 MG/DL (0.55-1.30); POTASSIUM 4.3 MMOL/L (3.5-5.1); SODIUM 138 MMOL/L (136-145)
[2017-11-16 07:20] LABS: HEMATOCRIT 25.3 % (42.0-52.0); HEMOGLOBIN 7.8 G/DL (14.2-18.0); MEAN CORPUSCULAR VOLUME 77 FL (80-99); PLATELET COUNT 181 K/UL (150-450); RED BLOOD COUNT 3.28 M/UL (4.70-6.10); RED CELL DISTRIBUTION WIDTH 17.3 % (11.6-14.8); WHITE BLOOD COUNT 7.7 K/UL (4.8-10.8)
[2017-11-16 08:00] VITALS: BP 83/32
[2017-11-16 08:10] VITALS: BP 101/41
[2017-11-16] MEDS: Tigecycline 50 MG in D5W 110 ML IVPB SCH (08:10)
[2017-11-16] MEDS: Vitamin D 1000 IU Tab ORAL SCH (09:20)
[2017-11-16] MEDS: Tums 500mg ORAL SCH (09:21)
[2017-11-16] MEDS: Analgesic Balm 15gm TOPIC SCH (09:21)
[2017-11-16] MEDS: Ascorbic Acid 500mg tab ORAL SCH (09:21)
[2017-11-16] MEDS: Dakin's 0.125% Soln (Quarter Strength) 16oz TOPIC SCH (09:21)
[2017-11-16 11:59] VITALS: BP 115/52
[2017-11-16] MEDS ORDERED: NS 275ml ONE (12:49)
[2017-11-16] MEDS ORDERED: Tubing IV Secondary IV ONE (12:49)
--- NOTE | 2017-11-16 21:07 | General Progress Note ---
Assessment/Plan Problem List: (1) Dementia with behavioral disturbance Assessment & Plan: Dementia with behavior disturbance and agitation. lacks capacity to make decisions lacks capacity to refuse meds PLAN: 1. Continue risperidone 1 mg at bedtime. 2. Continue Remeron 15 at bedtime. 3. Continue to follow and readjust the medications. ICD Codes: F03.91 - Unspecified dementia with behavioral disturbance SNOMED: [id number] Status: stable, progressing Assessment/Plan Dementia with behavior disturbance and agitation. lacks capacity to make decisions lacks capacity to refuse meds PLAN: 1. Continue risperidone 1 mg at bedtime. 2. Continue Remeron 15 at bedtime. 3. Continue to follow and readjust the medications. Subjective Neurologic/Psychiatric: Reports: anxiety, depressed, emotional problems Allergies: Coded Allergies: GABAPENTIN (Verified Allergy, Unknown, 10/11/17) OLIVE OIL (Verified Adverse Reaction, Severe, SPASM IN THE COLON, 01/18/14) PREGABALIN (Verified Adverse Reaction, Intermediate, "hypernervous", ) ACETAMINOPHEN (Verified Adverse Reaction, Mild, IRRITABILITY AND ELEVATED BLOOD PRESSURE, 01/18/14) IBUPROFEN (Verified Adverse Reaction, Mild, IRRITABILITY AND ELEVATED BLOOD PRESSURE, 01/18/14) Uncoded Allergies: SSRI (Allergy, Unknown, 10/11/17) Subjective the pt is . forgetful the pt is the same Objective Last 24 Hour Vital Signs Date Time Temp Pulse Resp B/P (MAP) Pulse Ox O2 Delivery O2 Flow Rate FiO2 11/16/17 11:59 97.9 71 19 115/52 99 97.9 11/16/17 08:10 68 101/41 11/16/17 08:00 97.7 67 19 83/32 100 97.7 11/16/17 04:00 98.6 69 18 129/60 99 Room Air 98.6 11/16/17 00:00 97.7 74 18 112/75 99 Room Air 97.7 Intake and Output 11/15/17 11/16/17 19:00 07:00 Intake Total 520 ml 640 ml Output Total 400 ml 400 ml Balance 120 ml 240 ml Intake Oral 520 ml 480 ml IV Total 160 ml Output Urine Total 400 ml 400 ml # Voids 1 # Bowel Movements 1 Laboratory Tests 11/16/17 05:55: White Blood Count 7.7, Red Blood Count 3.28L, Hemoglobin 7.8L, Hematocrit 25.3L , Mean Corpuscular Volume 77L, Mean Corpuscular Hemoglobin 23.8L, Mean Corpuscular Hemoglobin Concent 30.8L, Red Cell Distribution Width 17.3H, Platelet Count 181, Mean Platelet Volume 7.8, Neutrophils (%) (Auto) , Lymphocytes (%) (Auto) , Monocytes (%) (Auto) , Eosinophils (%) (Auto) , Basophils (%) (Auto) , Differential Total Cells Counted 100, Neutrophils % ( Manual) 61, Lymphocytes % (Manual) 28, Monocytes % (Manual) 5, Eosinophils % ( Manual) 6H, Basophils % (Manual) 0, Band Neutrophils 0, Platelet Estimate Adequate, Platelet Morphology Normal, Hypochromasia 1+, Anisocytosis 1+, Microcytosis 1+, Erythrocyte Sedimentation Rate 15, Sodium Level 138, Potassium Level 4.3, Chloride Level 106, Carbon Dioxide Level 27, Anion Gap 5, Blood Urea Nitrogen 40H, Creatinine 1.5H, Estimat Glomerular Filtration Rate , Glucose Level 181H, Calcium Level 7.2L Height (Feet): 5 Height (Inches): 8.00 Weight (Pounds): 185 General Appearance: no apparent distress, alert Neurologic: alert, oriented x 3, responsive, depressed affect Milton Lancaster M.D. Nov 16, 2017 21:07
--- NOTE | 2017-11-16 23:00 | General Progress Note ---
Assessment/Plan Assessment/Plan #. Anemia due to underlying chronic disease. --> Continue to closely monitor and trend. Hemoglobin goal is above 7 --> anemia workup reviewed. Iron 9, TIBC 127, B12 1791, Folate 41 --> Hemoglobin levels have downtrended from yesterday, but remain above goal at this point. --> Does not need blood transfusion at this time. #. Anemia of iron deficiency, potentially secondary to osteomyelitis. --> Monitor closely. Trend cbc. --> On iron supplement. Improved. --> Does not need prbc at this time. #. Anemia due to underlying kidney disease. --> Closely monitor, again improving. #. Leukocytosis, status post debridement, gram-negative jasmyn infection noted. --> Wbc count now WNL after antibiotic treatment. --> Remains on meropenem. Monitor closely. --> Infectious Disease Service following. #. Thrombocytosis, likely reactive process from underlying anemia, closely monitor for improvement. --> Resolved. #. Elevated creatinine, chronic kidney disease. #. Diabetes mellitus, on insulin sliding scale as needed as per primary team. #. Diastolic dysfunction. DC planning for SNF. Patient unable to take care of self at home. #. Encephalopathy. --> Pt unable to take care of self. Refuses to go home. Pending placement in SNF. Subjective Date patient seen: Nov 15, 2017 Constitutional: Denies: no symptoms, chills, diaphoresis, fever, malaise, weakness, other HEENT: Denies: no symptoms, eye pain, blurred vision, tearing, double vision, ear pain, ear discharge, nose pain, nose congestion, throat pain, throat swelling, mouth pain, mouth swelling, other Cardiovascular: Denies: no symptoms, chest pain, edema, irregular heart rate, lightheadedness, palpitations, syncope, other Respiratory: Denies: no symptoms, cough, orthopnea, shortness of breath, SOB with excertion, SOB at rest, sputum, stridor, wheezing, other Gastrointestinal/Abdominal: Denies: no symptoms, abdomen distended, abdominal pain, black stools, tarry stools, blood in stool, constipated, diarrhea, difficulty swallowing, nausea, poor appetite, poor fluid intake, rectal bleeding , vomiting, other Genitourinary: Denies: no symptoms, burning, discharge, frequency, flank pain, hematuria, incontinence, pain, urgency, other Neurologic/Psychiatric: Denies: no symptoms, anxiety, depressed, emotional problems, headache, numbness, paresthesia, pre-existing deficit, seizure, tingling, tremors, weakness, other Endocrine: Denies: no symptoms, excessive sweating, flushing, intolerance to cold, intolerance to heat, increased hunger, increased thirst, increased urine, unexplained weight gain, unexplained weight loss, other Hematologic/Lymphatic: Reports: anemia Allergies: Coded Allergies: GABAPENTIN (Verified Allergy, Unknown, 10/11/17) OLIVE OIL (Verified Adverse Reaction, Severe, SPASM IN THE COLON, 01/18/14) PREGABALIN (Verified Adverse Reaction, Intermediate, "hypernervous", ) ACETAMINOPHEN (Verified Adverse Reaction, Mild, IRRITABILITY AND ELEVATED BLOOD PRESSURE, 01/18/14) IBUPROFEN (Verified Adverse Reaction, Mild, IRRITABILITY AND ELEVATED BLOOD PRESSURE, 01/18/14) Uncoded Allergies: SSRI (Allergy, Unknown, 10/11/17) Subjective No acute events overnight. On pain management. Objective Last 24 Hour Vital Signs Date Time Temp Pulse Resp B/P (MAP) Pulse Ox O2 Delivery O2 Flow Rate FiO2 11/16/17 11:59 97.9 71 19 115/52 99 97.9 11/16/17 08:10 68 101/41 11/16/17 08:00 97.7 67 19 83/32 100 97.7 11/16/17 04:00 98.6 69 18 129/60 99 Room Air 98.6 11/16/17 00:00 97.7 74 18 112/75 99 Room Air 97.7 Intake and Output 11/15/17 11/16/17 19:00 07:00 Intake Total 520 ml 640 ml Output Total 400 ml 400 ml Balance 120 ml 240 ml Intake Oral 520 ml 480 ml IV Total 160 ml Output Urine Total 400 ml 400 ml # Voids 1 # Bowel Movements 1 Laboratory Tests 11/16/17 05:55: White Blood Count 7.7, Red Blood Count 3.28L, Hemoglobin 7.8L, Hematocrit 25.3L , Mean Corpuscular Volume 77L, Mean Corpuscular Hemoglobin 23.8L, Mean Corpuscular Hemoglobin Concent 30.8L, Red Cell Distribution Width 17.3H, Platelet Count 181, Mean Platelet Volume 7.8, Neutrophils (%) (Auto) , Lymphocytes (%) (Auto) , Monocytes (%) (Auto) , Eosinophils (%) (Auto) , Basophils (%) (Auto) , Differential Total Cells Counted 100, Neutrophils % ( Manual) 61, Lymphocytes % (Manual) 28, Monocytes % (Manual) 5, Eosinophils % ( Manual) 6H, Basophils % (Manual) 0, Band Neutrophils 0, Platelet Estimate Adequate, Platelet Morphology Normal, Hypochromasia 1+, Anisocytosis 1+, Microcytosis 1+, Erythrocyte Sedimentation Rate 15, Sodium Level 138, Potassium Level 4.3, Chloride Level 106, Carbon Dioxide Level 27, Anion Gap 5, Blood Urea Nitrogen 40H, Creatinine 1.5H, Estimat Glomerular Filtration Rate , Glucose Level 181H, Calcium Level 7.2L Height (Feet): 5 Height (Inches): 8.00 Weight (Pounds): 185 General Appearance: confused Respiratory/Chest: decreased breath sounds Abdomen: soft Giovany Wiggins MD Nov 16, 2017 23:00
--- NOTE | 2017-11-17 23:47 | General Progress Note ---
Assessment/Plan Status: stable Assessment/Plan #. Anemia due to underlying chronic disease. --> Continue to closely monitor and trend. Hemoglobin goal is above 7 --> anemia workup reviewed. Iron 9, TIBC 127, B12 1791, Folate 41 --> Hemoglobin levels have downtrended from yesterday, but remain above goal at this point. --> Does not need blood transfusion at this time. #. Anemia of iron deficiency, potentially secondary to osteomyelitis. --> Monitor closely. Trend cbc. --> On iron supplement. Improved. --> Does not need prbc at this time. #. Anemia due to underlying kidney disease. --> Closely monitor, again improving. #. Leukocytosis, status post debridement, gram-negative jasmyn infection noted. --> Wbc count now WNL after antibiotic treatment. --> Remains on meropenem. Monitor closely. --> Infectious Disease Service following. #. Thrombocytosis, likely reactive process from underlying anemia, closely monitor for improvement. --> Resolved. #. Elevated creatinine, chronic kidney disease. #. Diabetes mellitus, on insulin sliding scale as needed as per primary team. #. Diastolic dysfunction. DC planning for SNF. Patient unable to take care of self at home. #. Encephalopathy. --> Pt unable to take care of self. Refuses to go home. Pending placement in SNF. Subjective Date patient seen: Nov 16, 2017 Constitutional: Denies: no symptoms, chills, diaphoresis, fever, malaise, weakness, other HEENT: Denies: no symptoms, eye pain, blurred vision, tearing, double vision, ear pain, ear discharge, nose pain, nose congestion, throat pain, throat swelling, mouth pain, mouth swelling, other Cardiovascular: Denies: no symptoms, chest pain, edema, irregular heart rate, lightheadedness, palpitations, syncope, other Respiratory: Denies: no symptoms, cough, orthopnea, shortness of breath, SOB with excertion, SOB at rest, sputum, stridor, wheezing, other Gastrointestinal/Abdominal: Denies: no symptoms, abdomen distended, abdominal pain, black stools, tarry stools, blood in stool, constipated, diarrhea, difficulty swallowing, nausea, poor appetite, poor fluid intake, rectal bleeding , vomiting, other Genitourinary: Denies: no symptoms, burning, discharge, frequency, flank pain, hematuria, incontinence, pain, urgency, other Neurologic/Psychiatric: Denies: no symptoms, anxiety, depressed, emotional problems, headache, numbness, paresthesia, pre-existing deficit, seizure, tingling, tremors, weakness, other Hematologic/Lymphatic: Reports: anemia Allergies: Coded Allergies: GABAPENTIN (Verified Allergy, Unknown, 10/11/17) OLIVE OIL (Verified Adverse Reaction, Severe, SPASM IN THE COLON, 01/18/14) PREGABALIN (Verified Adverse Reaction, Intermediate, "hypernervous", ) ACETAMINOPHEN (Verified Adverse Reaction, Mild, IRRITABILITY AND ELEVATED BLOOD PRESSURE, 01/18/14) IBUPROFEN (Verified Adverse Reaction, Mild, IRRITABILITY AND ELEVATED BLOOD PRESSURE, 01/18/14) Uncoded Allergies: SSRI (Allergy, Unknown, 10/11/17) Subjective No distress. No fever. Pending discharge. Objective Height (Feet): 5 Height (Inches): 8.00 Weight (Pounds): 185 General Appearance: no apparent distress Respiratory/Chest: lungs clear Abdomen: soft Giovany Wiggins MD Nov 17, 2017 23:47
--- NOTE | 2017-11-18 16:00 | Discharge Summary ---
Discharge Summary Discharge Summary Discharge Summary DATE OF ADMISSION: 10/11/2017 DATE OF DISCHARGE: 11/16/2017 CONSULTANTS: Dr. 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 He had been residing at a fpc where he was noted to have worsening left foot swelling with pain and redness, he also had a left heel ulcer now worsening with purulent drainage. He complained of subjective fevers and chills, he denied nausea and vomiting, denied chest pain, shortness of breath or abdominal pain. On evaluation at ED, he was noted to have elevated WBC 1 16.4, BUN and creatinine was elevated, BUN 49, creatinine 2.4. Lactic acid was 1.9. He was admitted for sepsis, cellulitis of left lower extremity, acute kidney injury, and hyponatremia. He was started on IV fluids and was started empirically on vancomycin, cefepime, and Flagyl per ID. He was placed on heparin subcutaneous for DVT prophylaxis. He was seen by lab coordinator, wound care orders were given. He had an MRI of the left ankle that showed progressive osteomyelitis of the posterior calcaneus, increased ulceration of overlying soft tissue, with possible exposure of the medial aspect of the calcaneal tuberosity. There was a small amount of gas within the medial soft tissues. There was complete tear with retraction of the calcaneal tendon. There was diffuse edema of the subcutaneous fat, could be due to cellulitis or hemodynamic abnormalities. Left foot x-ray showed no acute bony trauma, with subcortical lucency on the calcaneal tuberosity presumably related to osteomyelitis. There was possible avulsed bony fragment off of the calcaneal tuberosity, likely related to Achilles tendon rupture described on recent MRI. On 10/13/2017, he underwent incision and drainage of the left foot, excisional debridement to the level of muscle left foot, partial calcanectomy. He had a wound VAC and was continued on wound care. He had anemia, hemoglobin of 10 and hematocrit of 31. He was followed by terrazzo finisher helper. Anemia workup done showed anemia due to underlying chronic and kidney disease. He also had iron deficiency potentially secondary to osteomyelitis. Thrombocytosis was reactive process from underlying anemia. Patient was having persecutory delusions, he believes people were stealing from him. He underwent psychiatric evaluation and was given risperidone. He continued to have leukocytosis. Wound culture with Proteus and Klebsiella; urine culture gram-positive cocci; blood culture with bacteroides; left foot aerobic culture with Klebsiella, Proteus, and enterococcus VRE. Tygecycline was added. Daptomycin was discontinued due to elevated CK level. A PICC line was placed on 10/17/2017. Repeat blood culture did not isolate any growth. He had elevated kidney function. Kidney ultrasound was unremarkable, negative for hydronephrosis, bladder volume 337. He had urinary retention however refused Helms insertion. Creatinine levels eventually improved. Patient unable to go home as he lives alone, needs placement post discharge. He will need total 6 weeks IV antibiotic due to his osteomyelitis. Wound VAC was eventually discontinued per podiatry. He was advised nonweightbearing on left lower extremity. He was eventually discharged to [facility] to continue IV antibiotic and wound care. FINAL DIAGNOSES: Gram-negative bacteremia Sepsis Progressive osteomyelitis of the posterior calcaneus Cellulitis of the lower extremity Left heel diabetic ulcer with concern for osteomyelitis Complete tear with retraction of the calcaneal tendon Acute kidney injury on chronic kidney disease CKD stage III Diabetes mellitus type 2 Hypertension Diabetic neuropathy Diabetic nephropathy Hyponatremia Medical noncompliance Acute on chronic diastolic congestive heart failure Fall with head trauma DISPOSITION: Patient was discharged to [facility] DISCHARGE MEDICATIONS: Refer to Discharge Medication List. Continue with Invanz 1 g IV every 24 hours 23 more days;Tigecycline 50 mg every 12 hours 23 more days. Check CBC, CMP, sedimentation rate, and CRP on Mondays while on antibiotic. I have been assigned to dictate discharge summary on this account, and I was not involved in the patient's management. Lindsey Dacosta NP Nov 18, 2017 16:00
== END 2017-11-16 12:50 | DRG 853 ==
LOC: EDUNIT# 14:29 → EDBD 14:29 → EMR 14:50 → EDBEDREQ 15:17 → 4E 15:22 → EDBEDREQ 16:28 → 4E 10-13 09:57
PROC: 0J9R0ZZ Drainage of Left Foot Subcutaneous Tissue and Fascia, Open Approach (ICD-10-PCS; principal; 2017-10-13 13:00)
PROC: 0JBR0ZZ Excision of Left Foot Subcutaneous Tissue and Fascia, Open Approach (ICD-10-PCS; principal; 2017-10-13 13:00)
PROC: 0QBM0ZZ Excision of Left Tarsal, Open Approach (ICD-10-PCS; principal; 2017-10-13 13:00)
PROC: 02HV33Z Insertion of Infusion Device into Superior Vena Cava, Percutaneous Approach (ICD-10-PCS; 2017-10-17)
PROC: B518ZZA Fluoroscopy of Superior Vena Cava, Guidance (ICD-10-PCS; 2017-10-17)
PROC: B518ZZA Fluoroscopy of Superior Vena Cava, Guidance (ICD-10-PCS; 2017-10-31)
PROC: 02HV33Z Insertion of Infusion Device into Superior Vena Cava, Percutaneous Approach (ICD-10-PCS; 2017-10-31)
DX: A41.50 Gram-negative sepsis, unspecified (principal); I50.33 Acute on chronic diastolic (congestive) heart failure; G93.40 Encephalopathy, unspecified; N17.9 Acute kidney failure, unspecified; L03.116 Cellulitis of left lower limb; I13.0 Hypertensive heart and chronic kidney disease with heart failure and stage 1 through stage 4 chronic kidney disease, or unspecified chronic kidney disease; M86.8X7 Other osteomyelitis, ankle and foot; L97.429 Non-pressure chronic ulcer of left heel and midfoot with unspecified severity; L97.419 Non-pressure chronic ulcer of right heel and midfoot with unspecified severity; A52.16 Charcot's arthropathy (tabetic); F03.91 Unspecified dementia, unspecified severity, with behavioral disturbance; N39.0 Urinary tract infection, site not specified; E87.1 Hypo-osmolality and hyponatremia; E11.621 Type 2 diabetes mellitus with foot ulcer; E11.40 Type 2 diabetes mellitus with diabetic neuropathy, unspecified; R26.2 Difficulty in walking, not elsewhere classified; E66.9 Obesity, unspecified; N18.3 Chronic kidney disease, stage 3 (moderate); R65.20 Severe sepsis without septic shock; F90.9 Attention-deficit hyperactivity disorder, unspecified type; D50.9 Iron deficiency anemia, unspecified; Z68.28 Body mass index [BMI] 28.0-28.9, adult; D47.3 Essential (hemorrhagic) thrombocythemia; N40.1 Benign prostatic hyperplasia with lower urinary tract symptoms; R33.8 Other retention of urine; I25.10 Atherosclerotic heart disease of native coronary artery without angina pectoris; F41.9 Anxiety disorder, unspecified; F32.9 Major depressive disorder, single episode, unspecified; Z91.19 Patient's noncompliance with other medical treatment and regimen; E87.5 Hyperkalemia; Z79.4 Long term (current) use of insulin; S96.812A Strain of other specified muscles and tendons at ankle and foot level, left foot, initial encounter; X58.XXXA Exposure to other specified factors, initial encounter; Y92.9 Unspecified place or not applicable; E11.22 Type 2 diabetes mellitus with diabetic chronic kidney disease; D63.1 Anemia in chronic kidney disease
CPT/HCPCS: 36415; 36569; 70450; 71045; 76770; 76775; 76937; 80048; 80053; 80061; 80076; 80202; 81001; 81003; 82550; 82607; 82728; 82746; 82962; 82977; 83036; 83540; 83550; 83605; 83735; 83880; 84100; 84300; 84443; 84550; 85007; 85025; 85060; 85651; 86140; 87040; 87070; 87075; 87081; 87086; 87181; 87205; 89050; 93005; 93306; 94003; 94150; 99285; J1815; J2250; J2710; S5561